=== PATIENT | female | born 1965 | race Caucasian/White ===

== ENCOUNTER → 2016-11-05 | Outpatient (CLI) | payer OTHER ==
[~2016-11-05] MED LIST: ALL180 PO; B-CO-25 PO; BUPR75TA20 PO; BUPR75TA3 PO; DIVA500T3 PO; DOCU240C12 PO; FLUT0.15 NAE; KETO2CRE14 TOP; KETO2SHA5 TOP; LRS10 PO; LRS20 PO; METR0.754 TOP; MOML PO; OMEP40CA PO; OMEP40CA41 PO; PARO1TAB29 PO; POLY335019 PO; QUET1TAB9 PO; VTMD1000 PO
--- NOTE | 2016-11-05 15:14 | MAMMOGRAPHY REPORT ---
ULTRASOUND OF BOTH BREASTS: 11/05/2016 CLINICAL HISTORY: Screening breast ultrasound. Patient is unable to tolerate and adequately positio n for mammography. COMPARISON: Comparison is made to exams dated: 10/25/2015 ultrasound - [facility], 05/16/2009, 06/06/2010 mammogram, 07/05/2011 mammogram, 07/16/2012 mammogram, and 07/20/2013 mammogram - [facility]. TECHNIQUE: Real-time high-resolution ultrasound was performed of each breast including the axillae. The examination is suboptimal as the patient is unable to adequately position with arms extended ab ove her head to assess the axillary regions. She is wheelchair-bound and has contractures. FINDINGS: The breast parenchymal echotexture is homogeneousfatty. No suspicious lymphadenopathy w as identified within the right or left axilla. No suspicious solid or cystic mass is seen throughou t the right or left breast including the retroareolar breasts. IMPRESSION: ACR BI-RADS CATEGORY 2: BENIGN There is no sonographic evidence of malignancy. A 1 year screening exam is recommended. The patien t has been verbally notified of the results. Madina Franco M.D. ay/:11/05/2016 14:05:17 Access Manager: Dr. Madina Franco, [facility] letter sent: Normal 1/2 BI-RADS Code: ACR BI-RADS Category 2: Benign
== END | disposition home or self-care (01) ==
LOC: C.MAMM 13:28
PROVIDERS: ATTEND Family Medicine
DX: Z12.31 Encounter for screening mammogram for malignant neoplasm of breast (principal)

== ENCOUNTER 2016-12-18 10:01 | Emergency (ER) | payer OTHER ==
[~2016-12-18 10:01] MED LIST changes: -BUPR75TA20 PO; -KETO2SHA5 TOP; -OMEP40CA41 PO
[2016-12-18 10:17] VITALS: TEMP 37.6; Ht 165.1 cm
--- NOTE | 2016-12-18 10:48 | EMERGENCY ROOM VISIT NOTE ---
History Report prepared by Jarrod: Sushila Ron Under the Supervision of: Dr. Karthik Lozano M.D. First contact with patient: 10:35 Chief Complaint: CONSTIPATION Stated Complaint: CONSTIPATED Nursing Triage Summary: pt is constipated with butt hole open per caregiver. sx for 3 days. pt has been gagging no vomiting pt was taking miralax but pcp changed it and now is constipated History of Present Illness The patient is a 51 year old female who presents to the Emergency Room via caregiver to be evaluated for persistent constipation that began 3 days ago. The patient's caregiver has also noticed that her anus appears to be dilated. She was given a suppository without relief. The patient typically has a bowel movement daily. Her caregiver states that she was brought to the ED for constipation last year and was given 2 enemas. History is limited secondary to patient's MR. Source of History: caregiver History Limited By: other (MR) Onset: 3 days WEEKDAY BABYSIT[employer] Position: other (GI) Quality: other (constipation) Timing: other (persistent) Review of Systems All systems have been listed, reviewed, and are negative other than those previously mentioned. Please see Additional Medical History Sheet. Past Medical & Surgical Medical Problems: (1) Cerebral palsy (2) Dysphasia (3) Mental retardation Family History Unobtainable due to patient's condition Social History Smoking Status: Never Smoker Alcohol Use: none Drug Use: none Marital Status: single Housing Status: assisted living Occupation Status: disabled Current/Historical Medications Scheduled B-Complex W/ Folic Acid (Super B Complex Maxi), 1 TAB PO DAILY Baclofen (Baclofen), 5 MG PO TID Baclofen (Baclofen), 20 MG PO TID Bupropion (Wellbutrin), 75 MG PO DAILY Cholecalciferol (Vitamin D3), 5,000 INTERUNIT PO DAILY Divalproex Sodium (Depakote Er), 1,000 MG PO HS Docusate Calcium (Docusate Calcium), 240 MG PO BID Fexofenadine HCl (Fexofenadine HCl), 180 MG PO DAILY Fluticasone Propionate (Nasal) (Flonase Allergy Relief), 2 SPRAYS NURYS DAILY Ketoconazole (Topical) (Nizoral), 1 APPLN TOP DAILY Metronidazole (Topical) (Metrocream), 1 APPLN TOP BID Omeprazole (Prilosec), 40 MG PO DAILY Paroxetine (Paxil), 40 MG PO DAILY Polyethylene Glycol 3350 (Miralax), 17 GM PO DAILY Quetiapine Fumarate (Seroquel), 100 MG PO TID Scheduled PRN Magnesium Hydroxide (Milk Of Magnesia), 30 ML PO for Constipation Allergies Coded Allergies: Amoxicillin (Verified Allergy, Unknown, UNKNOWN, 12/18/16) Clavulanic Acid (Verified Allergy, Unknown, UNKNOWN, 12/18/16) Physical Exam Vital Signs Date Time Temp Pulse Resp B/P Pulse Ox O2 Delivery O2 Flow Rate FiO2 12/18/16 13:36 111 18 97 12/18/16 12:36 120 20 145/94 93 Room Air 12/18/16 10:17 37.6 123 22 145/89 94 Room Air Physical Exam GENERAL: Minimal history obtained from the patient due to her chronic MR. Patient awake, alert. Patient follows some commands. Patient does not appear toxic. Patient is adequately hydrated and well-nourished. SKIN: No erythema, pallor, cyanosis or rash HEENT: Normal head, pupils equal, reactive to light and accommodation. LUNGS: Clear to auscultation. No wheezes, no rales, no rhonchi. HEART: No murmurs. No gallops. No rubs ABDOMEN: Soft, nontender. No masses, no rebound, no hepatomegaly or splenomegaly. RECTAL: Large amount of fecal impaction, brown rachel-like stool. EXTREMITIES: No signs of trauma. Patient has chronic contractions of her upper and lower extremities. NEUROLOGIC: No gross motor sensory function deficits. Medical Decision & Procedures Laboratory Results 12/18/16 11:15 12/18/16 11:15 Test 12/18/16 11:15 Red Blood Count 4.36 M/uL (4.2-5.4) Mean Corpuscular Volume 92.0 fL (80-100) Mean Corpuscular Hemoglobin 31.9 pg (25-34) Mean Corpuscular Hemoglobin Concent 34.7 g/dl (32-36) RDW Standard Deviation 46.8 fL (36.4-46.3) RDW Coefficient of Variation 13.9 % (11.5-14.5) Mean Platelet Volume 10.6 fL (7.4-10.4) Anion Gap 5.0 mmol/L (3-11) Estimated GFR () 138.8 Estimated GFR (Non- 119.8 BUN/Creatinine Ratio 31.8 (10-20) Calcium Level 9.0 mg/dl (8.5-10.1) Laboratory results as stated above per my review. ED Course 1038: Past medical records reviewed. The patient was evaluated in room C8. A complete history and physical examination was performed. 1310: Upon reevaluation, the patient appeared to have improvement of her symptoms. Nursing staff reports that the patient had a large bowel movement. I discussed today's findings with the patient's caregiver. She verbalized agreement of the treatment plan. The patient was discharged home. Medical Decision Differential includes but is not limited to fecal impaction, constipation, obstipation, metabolic disorder. Multiple labs were evaluated. The patient does not have any significant metabolic disorder. Fecal impaction could not be disimpacted manually. Patient had at least 2 enemas which did help to resolve the problem. The patient had a large amount of stool. I discussed care with 2 caregivers. Impression Primary Impression: Fecal impaction in rectum Additional Impression: Constipation Departure Information Dispostion Home / Self-Care Referrals Leighann PalumboDBushraOBushra (PCP) Patient Instructions My [facility] [place] [employer] Additional Instructions Continue all current medications as prescribed. Follow-up with Dr. Palumbo Problem Qualifiers
[2016-12-18] MEDS ORDERED: KETO2SHA5 TOP (10:59)
[2016-12-18] MEDS ORDERED: OMEP40CA41 PO (10:59)
[2016-12-18] MEDS ORDERED: BUPR75TA20 PO (11:00)
[2016-12-18 11:23] LABS: HEMATOCRIT 40.1 % (37-47); MEAN CORPUSCULAR HEMOGLOBIN 31.9 pg (25-34); MEAN CORPUSCULAR HGB CONC 34.7 g/dl (32-36); MEAN PLATELET VOLUME 10.6 fL (7.4-10.4); PLATELET COUNT 218 K/uL (130-400); RED BLOOD COUNT 4.36 M/uL (4.2-5.4); WHITE BLOOD COUNT 10.05 K/uL (4.8-10.8)
[2016-12-18 11:39] LABS: BLOOD UREA NITROGEN 13 mg/dl (7-18); BUN/CREATININE RATIO 31.8 (10-20); CARBON DIOXIDE 31 mmol/L (21-32); CHLORIDE 108 mmol/L (98-107); GLUCOSE 120 mg/dl (70-99); SODIUM 144 mmol/L (136-145)
[2016-12-18 12:36] VITALS: BP 145/94
[2016-12-18 13:36] VITALS: PULSE 111; O2SAT 97
== END 2016-12-18 13:42 | disposition home or self-care (01) ==
LOC: C.EDB 10:02 → C.EDC 13:42
DX: K56.41 Fecal impaction (principal); G80.9 Cerebral palsy, unspecified; R47.02 Dysphasia; F79 Unspecified intellectual disabilities

== ENCOUNTER → 2017-04-18 | Outpatient (CLI) | payer OTHER ==
[~2017-04-18] MED LIST changes: +BUPR75TA20 PO; -BUPR75TA3 PO; -KETO2CRE14 TOP; +KETO2SHA5 TOP; -OMEP40CA PO; +OMEP40CA41 PO
--- NOTE | 2017-04-18 16:05 | DIAGNOSTIC IMAGING REPORT ---
LEFT VENOUS DOPP LOWER EXT UNILAT CLINICAL HISTORY: 52 years-old Female presenting with LT LEG PAIN,R/O DVT *STAT. TECHNIQUE: Real-time grayscale and color and spectral Doppler ultrasound imaging of the veins of the left lower extremity was performed. Compression and augmentation were also utilized. COMPARISON: None. FINDINGS: Left: Common femoral vein: Patent. Femoral vein: Patent. Greater saphenous vein: Patent. Popliteal vein: Patent. Calf veins: Limited visualization. Other: None. IMPRESSION: No evidence of deep venous thrombosis. Electronically signed by: Rick Andrade M.D. 04/18/2017 4:03 PM Dictated Date/Time: 04/18/2017 4:03 PM
== END | disposition home or self-care (01) ==
LOC: C.ULTR 15:26
PROVIDERS: ATTEND Family Medicine
DX: M79.605 Pain in left leg (principal)

== ENCOUNTER → 2017-05-10 | Outpatient (CLI) | payer OTHER ==
--- NOTE | 2017-05-10 13:03 | DIAGNOSTIC IMAGING REPORT ---
VIDEO SWALLOW HISTORY: Assess for aspiration. Cough, pt WILL NEED LITTER/HELP FROM WHEELCHAIR TECHNIQUE: Video fluoroscopic evaluation of swallowing was performed in the AP and lateral projections by the speech pathology staff. The patient is fed nectar-thick and thin liquid barium. FLUOROSCOPY TIME: 0.8 minutes. A cine loop submitted. COMPARISON STUDY: None. FINDINGS: No aspiration with the thin liquid barium. There is trace aspiration with the nectar thick liquid barium. This appears to be secondary to premature spillover with slight delay of swallowing initiation. IMPRESSION: 1. Trace aspiration with the nectar thick liquid barium. 2. Please see the speech pathologist report for detailed findings and recommendations. Electronically signed by: Juan Galaviz M.D. 05/10/2017 1:01 PM Dictated Date/Time: 05/10/2017 12:59 PM
--- NOTE | 2017-05-13 09:55 | SWALLOWING EVALUATION ---
HISTORY: This 52 year old woman was referred for a video swallow study at [facility] in order to rule out aspiration and identify the safest consistencies for optimal oral intake. PMH is significant for Intellectual Disability, dehydration, and pneumonia. Caregiver was present and reported that patient has episodes of coughing/choking with meals. Current diet is pureed, and at times thickener is used for liquids. The patient is only able to drink with use of a straw. PROCEDURE: The patient was seen in the Radiology Department of [facility] for the VFSS. Cursory examination of the oral cavity revealed natural dentition in fair condition. Movement of the articulators was impaired as evidenced by dysarthric speech. The patient was seated upright in a wheelchair and was viewed in the Lateral plane. The Anterior-Posterior (A-P) plane was deferred due to positioning constraints of the patient's personal wheelchair and patient motion. The patient required assistance with maintaining adequate positioning for the study and spontaneous motion impacted full view at times. In the lateral plane, the patient was given the following boluses: Single swallow of thin liquid barium clinician-presented via straw, sequential swallows of thin liquid barium clinician-presented from a straw over 2 separate trials, single swallow of nectar thick liquid clinician presented via straw, sequential swallows of nectar thick liquid clinician-presented via straw, and 1 teaspoon barium pudding. RESULTS: Oral Stage: Lip closure was reduced as evidenced by anterior loss that progressed past the mid chin. The liquid bolus hold task was deferred. There was minimal manipulation of the pudding bolus. The patient essentially initiated bolus transport without any manipulation, with lingual transport being slowed. There was retention located along the tongue and palate after the initial swallow. The initiation of the pharyngeal swallow was delayed, and triggered when the bolus head reached the pyriforms. The patient presented with some difficulty with controlling the amount of liquid taken from the straw, and larger boluses taken presented with decreased ability to orally contain them resulting in premature loss. More solid boluses (i.e. cracker) were not provided due to safety concerns with oral stage management. Pharyngeal Stage: Soft palate elevation was complete. Laryngeal elevation revealed partial superior movement of the thyroid cartilage and partial approximation of the arytenoids to the epiglottic base. Anterior hyoid excursion was complete. Epiglottic deflection was complete. Laryngeal vestibular closure was incomplete as a narrow column of contrast was located in the vestibule at the height of the swallow. The pharyngeal stripping wave was present yet diminished. There was complete distention with complete duration of the opening to the pharyngoesophageal segment (PES). Tongue base retraction was minimally reduced, with a trace column of contrast located between the tongue base and pharyngeal wall during the swallow. There was trace retention located in the valleculae after the swallow. There was one episode of laryngeal penetration with aspiration (trace amounts) with nectar thick liquid. This occurred during serial swallows, when larger amounts were taken. Aspiration is attributed to delayed swallowing reflex, as the bolus spilled to and filled the pyriforms prior to eliciting a swallow. After ~ 2-3 seconds she did swallow, and the liquid that was present in the valleculae was aspirated during hyolaryngeal rise. She did have a sensory response in the form of a cough which appeared to be effective to clear this. No other aspiration was identified. SUMMARY/RECOMMENDATIONS: This patient presents with moderate rogelio-pharyngeal dysphagia. The following is recommended: 1. Pureed diet and thin liquids. 2. STRICT aspiration precautions. Fully upright while eating and 30 minutes after meals. Frequent oral care as the patient is able to tolerate (brushing all surfaces of the mouth prior to and after meals, and before bed). 3. Safe swallow strategies: SMALL SINGLE sips of liquids via controlled sips with a straw. Consider use of a "safe straw" that will assist in controlling sip size. 4. Consider continued speech therapy for further education and follow through of diet and safe swallow strategies. A summary of the results and recommendations was discussed with the Caregiver of the patient as well as the patient, with verbal understanding from the caregiver. A brief written summary of the results and recommendations were provided to the caregiver on document provided immediately following the study as well. Thank you for referral of this patient. Please contact me at if any additional information is needed.
== END | disposition home or self-care (01) ==
LOC: C.RAD 11:30
PROVIDERS: ATTEND Student in an Organized Health Care Education/Training Program
DX: R13.12 Dysphagia, oropharyngeal phase (principal); R63.3 Feeding difficulties; R05 Cough; R09.89 Other specified symptoms and signs involving the circulatory and respiratory systems

== ENCOUNTER → 2017-05-14 | Outpatient (CLI) | payer OTHER ==
--- NOTE | 2017-05-14 12:35 | DIAGNOSTIC IMAGING REPORT ---
LEFT HIP UNILATERAL 2 VIEWS, LEFT FEMUR 2 VIEWS ROUTINE, LEFT TIBIA/FIBULA 2 VIEWS ROUTINE CLINICAL HISTORY: Left lower externally pain. Left leg pain. COMPARISON STUDY: Left femur 05/22/2016. FINDINGS: The bones are diffusely osteopenic. There is diffuse muscular atrophy of the left lower extremity/hip. 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 Dysmorphic appearance to the left hip and left knee is also chronic. There is deformity/dislocation of the left foot which is also likely chronic. Metallic shantel are seen within the hindfoot. No acute fractures identified. IMPRESSION: 1. No acute fractures within the left hip, left femur, or left lower leg. 2. Chronic deformities within the left lower extremity as described above. 3. 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 Electronically signed by: Juan Galaviz M.D. 05/14/2017 12:33 PM Dictated Date/Time: 05/14/2017 12:28 PM
== END | disposition home or self-care (01) ==
LOC: C.RAD1850 11:27
PROVIDERS: ATTEND Family Medicine
DX: M79.605 Pain in left leg (principal)

== ENCOUNTER → 2017-06-04 | Outpatient (CLI) | payer OTHER | END | disposition home or self-care (01) | LOC: C.RDSM 11:28 | PROVIDERS: ATTEND Physical Medicine & Rehabilitation Sports Medicine | DX: M79.605 Pain in left leg (principal) ==

== ENCOUNTER 2017-10-06 13:30 | Emergency (ER) | payer OTHER ==
[~2017-10-06] VITALS: Ht 127 cm; Wt 53.0 kg
[~2017-10-06 13:30] MED LIST changes: -DOCU240C12 PO; +DOCU240C13 PO
[2017-10-06 13:39] VITALS: TEMP 38.2
[2017-10-06] MEDS ORDERED: SODIUM CHLORIDE 0.9% 1000ML 1,000 ML IV ONE (13:52)
[2017-10-06] MEDS ORDERED: ACETAMINOPHEN SUSP 160 MG/5 ML UDC PO STA (13:55)
--- NOTE | 2017-10-06 14:01 | EMERGENCY ROOM VISIT NOTE ---
History Report prepared by Jarrod: Devang Noble Under the Supervision of: Dr. Maurice Overton D.O. First contact with patient: 13:46 Chief Complaint: FLU LIKE SX Stated Complaint: COUGH, FEVER, NOT EATING OR DRINKING History of Present Illness The patient is a 52 year old female who presents to the Emergency Room with complaints of worsening flu-like symptoms beginning two days ago. The patient's caregiver states the patient has not been eating or drinking for the past few days. She reports the patient gets irritated and cries when she tries to eat. The caregiver notes the patient developed a fever over 100 degrees. She states the patient has also been coughing and sounds congested. The caregiver reports the patient has not received Motrin or Tylenol. She notes the patient has been complaining of body aches and pain. The caregiver states the patient received her flu shot, but she has not received a pneumonia shot. She reports the patient 's house-made has been sick with an ear infection. The caregiver notes the patient has experienced diarrhea, but she has not developed rectal bleeding. She states the patient recently started taking an extra 250mg of Depakote. The caregiver reports she is most concerned about pneumonia. She denies nausea, vomiting, and a runny nose. Source of History: caregiver Onset: 2 days ago Position: other (global) Quality: other (flu-like sx) Timing: worsening Associated Symptoms: + fevers, + cough, + diarrhea, No nausea, No vomiting Note: Associated symptoms: decreased appetite and fluid intake, congestion, body aches and pain Denies: rectal bleeding, runny nose Review of Systems See HPI for pertinent positives & negatives. A total of 10 systems reviewed and were otherwise negative. Past Medical & Surgical Medical Problems: (1) Cerebral palsy (2) Dysphasia (3) Mental retardation Family History Unobtainable due to patient's condition Social History Smoking Status: Never Smoker Alcohol Use: none Drug Use: none Marital Status: single Housing Status: assisted living Occupation Status: disabled Current/Historical Medications Scheduled B-Complex W/ Folic Acid (Super B Complex Maxi), 1 TAB PO DAILY Baclofen (Baclofen), 5 MG PO TID Baclofen (Baclofen), 20 MG PO TID Bupropion (Wellbutrin), 75 MG PO DAILY Cholecalciferol (Vitamin D3), 5,000 INTERUNIT PO DAILY Divalproex Sodium (Depakote Er), 1,000 MG PO HS Divalproex Sodium (Depakote Extended-Release), 250 MG PO HS Docusate Calcium (Docusate Calcium), 240 MG PO BID Fexofenadine HCl (Fexofenadine HCl), 180 MG PO DAILY Fluticasone Propionate (Nasal) (Flonase Allergy Relief), 2 SPRAYS NURYS DAILY Ketoconazole (Topical) (Nizoral), 1 APPLN TOP DAILY Metronidazole (Topical) (Metrocream), 1 APPLN TOP BID Omeprazole (Prilosec), 40 MG PO DAILY Oseltamivir (Tamiflu), 75 MG PO BID Paroxetine (Paxil), 40 MG PO DAILY Polyethylene Glycol 3350 (Miralax), 17 GM PO DAILY Quetiapine Fumarate (Seroquel), 100 MG PO TID Scheduled PRN Magnesium Hydroxide (Milk Of Magnesia), 30 ML PO for Constipation Allergies Coded Allergies: Amoxicillin (Verified Allergy, Unknown, UNKNOWN, 10/06/17) Clavulanic Acid (Verified Allergy, Unknown, UNKNOWN, 10/06/17) Physical Exam Vital Signs Date Time Temp Pulse Resp B/P (MAP) Pulse Ox O2 Delivery O2 Flow Rate FiO2 10/06/17 15:49 118 18 105/85 97 Room Air 10/06/17 14:49 120 20 131/91 98 Room Air 10/06/17 14:49 98 Room Air 10/06/17 13:39 38.2 130 22 184/132 100 Room Air Physical Exam GENERAL: Patient is awake, alert, and appears to be interactive with the examiner and caregiver. EYES: The conjunctivae are clear. The pupils are round and reactive. EARS, NOSE, MOUTH AND THROAT: The nose is without any evidence of any deformity. Mucous membranes are moist tongue is midline. TMs are clear bilaterally. Posterior oropharynx is clear. Clear rhinorrhea noted bilaterally. NECK: The neck is nontender and supple. RESPIRATORY: Diminished breath sounds in the right lung field. Rales at the left base. No tachypnea or respiratory distress noted clinically. CARDIOVASCULAR: Regular rate and rhythm noted there no murmurs rubs or gallops normal S1 normal S2 GASTROINTESTINAL: The abdomen is soft. Bowel sounds are present in all quadrants. Abdomen is nontender MUSCULOSKELETAL/EXTREMITIES: There is no evidence of gross deformity full range of motion is noted in the hips and shoulders. Pedal edema bilaterally. SKIN: There is no obvious evidence of any rash. There are no petechiae, pallor or cyanosis noted. NEUROLOGIC: Patient is at baseline according to caregiver. Medical Decision & Procedures ER Provider Diagnostic Interpretation: X-ray results as stated below per interpretation by me and the radiologist. CHEST ONE VIEW PORTABLE HISTORY: 52 years-old Female Sepsis acute sepsis COMPARISON: Chest radiograph 07/23/2016 TECHNIQUE: Portable AP view of the chest FINDINGS: The patient is rotated to the right. Cardiac silhouette is upper limits of normal. There is no pneumothorax, pleural effusion or definite focal airspace consolidation. Hazy bibasilar opacities suggest atelectasis, unchanged. The bones of the chest appear grossly intact. Degenerative changes are seen within the spine and shoulders. IMPRESSION: No acute process. The above report was generated using voice recognition software. It may contain grammatical, syntax or spelling errors. Electronically signed by: Barrington Wick M.D. 10/06/2017 2:32 PM Dictated Date/Time: 10/06/2017 2:30 PM Laboratory Results 10/06/17 14:07 Red Blood Count 4.37, Mean Corpuscular Volume 95.0, Mean Corpuscular Hemoglobin 32.7, Mean Corpuscular Hemoglobin Concent 34.5, Mean Platelet Volume 11.7, Neutrophils (%) (Auto) 80.4, Lymphocytes (%) (Auto) 11.2, Monocytes (%) (Auto) 8.0, Eosinophils (%) (Auto) 0.0, Basophils (%) (Auto) 0.1, Neutrophils # (Auto) 10.02, Lymphocytes # (Auto) 1.39, Monocytes # (Auto) 1.00, Eosinophils # (Auto) 0.00, Basophils # (Auto) 0.01 10/06/17 14:07 Test 10/06/17 14:07 10/06/17 14:10 10/06/17 14:13 10/06/17 14:14 White Blood Count 12.46 K/uL (4.8-10.8) Red Blood Count 4.37 M/uL (4.2-5.4) Hemoglobin 14.3 g/dL (12.0-16.0) Hematocrit 41.5 % (37-47) Mean Corpuscular Volume 95.0 fL (80-100) Mean Corpuscular Hemoglobin 32.7 pg (25-34) Mean Corpuscular Hemoglobin Concent 34.5 g/dl (32-36) Platelet Count 217 K/uL (130-400) Mean Platelet Volume 11.7 fL (7.4-10.4) Neutrophils (%) (Auto) 80.4 % Lymphocytes (%) (Auto) 11.2 % Monocytes (%) (Auto) 8.0 % Eosinophils (%) (Auto) 0.0 % Basophils (%) (Auto) 0.1 % Neutrophils # (Auto) 10.02 K/uL (1.4-6.5) Lymphocytes # (Auto) 1.39 K/uL (1.2-3.4) Monocytes # (Auto) 1.00 K/uL (0.11-0.59) Eosinophils # (Auto) 0.00 K/uL (0-0.5) Basophils # (Auto) 0.01 K/uL (0-0.2) RDW Standard Deviation 48.1 fL (36.4-46.3) RDW Coefficient of Variation 13.9 % (11.5-14.5) Immature Granulocyte % (Auto) 0.3 % Immature Granulocyte # (Auto) 0.04 K/uL (0.00-0.02) Prothrombin Time 10.5 SECONDS (9.0-12.0) Prothromb Time International Ratio 1.0 (0.9-1.1) Activated Partial Thromboplast Time 29.6 SECONDS (21.0-31.0) Partial Thromboplastin Ratio 1.1 Anion Gap 11.0 mmol/L (3-11) Est Creatinine Clear Calc Drug Dose 91.4 ml/min Estimated GFR () 139.0 Estimated GFR (Non- 119.9 BUN/Creatinine Ratio 22.2 (10-20) Calcium Level 9.4 mg/dl (8.5-10.1) Magnesium Level 2.0 mg/dl (1.8-2.4) Total Bilirubin 0.2 mg/dl (0.2-1) Aspartate Amino Transf (AST/SGOT) 31 U/L (15-37) Alanine Aminotransferase (ALT/SGPT) 32 U/L (12-78) Alkaline Phosphatase 81 U/L (45-117) C-Reactive Protein 8.70 mg/dl (0-0.29) Total Protein 7.9 gm/dl (6.4-8.2) Albumin 3.4 gm/dl (3.4-5.0) Globulin 4.5 gm/dl (2.5-4.0) Albumin/Globulin Ratio 0.8 (0.9-2) Valproic Acid (Depakene) Level 86 mcg/ml (50-100) Influenza Type A Antigen POS for Influ A (NEG) Influenza Type B Antigen Neg for Influ B (NEG) Erythrocyte Sedimentation Rate 22 mm/hr (0-21) Bedside Lactic Acid Venous 2.27 mmol/L (0.90-1.70) Laboratory results per my review. Medications Administered Medications (Trade) Dose Ordered Sig/Patrick Route Start Time Stop Time Status Last Admin Dose Admin Sodium Chloride 1,000 ml @ 999 mls/hr Q1H1M ONCE IV 10/06/17 13:52 10/06/17 14:52 DC 10/06/17 14:46 999 MLS/HR Acetaminophen (Tylenol Children'S Susp) 500 mg NOW STAT PO 10/06/17 13:55 10/06/17 13:56 DC 10/06/17 14:45 500 MG Oseltamivir Phosphate (Tamiflu Cap) 75 mg NOW STAT PO 10/06/17 15:02 10/06/17 15:03 DC 10/06/17 15:50 75 MG ED Course 1348: The patient was evaluated in room B07. A complete history and physical examination were performed. 1352: Ordered NSS 1,000 ml @ 999 mls/hr IV 1355: Ordered Acetaminophen 500 mg PO 1502: Ordered Tamiflu Cap 75mg PO 1519: I reevaluated the patient and discussed current exam findings with her caregiver. 1541: Upon reevaluation, the patient is resting comfortably. I discussed the results and treatment plan with the caregiver. She verbalized agreement of the treatment plan. The patient was discharged home. Medical Decision Differential diagnosis: Etiologies such as viral syndrome, otitis, pharyngitis, pneumonia, influenza, meningitis, urinary tract infection, sepsis, bacteremia, as well as others were entertained. Nursing notes reviewed. The patient is a 52-year-old female who presented to the emergency department for an acute febrile illness. The patient has been spitting cough as well as congestion. The patient has significant past medical history including cerebral palsy. The patient was treated with IV fluids in the emergency department. She was also treated for her fever as well as started on Tamiflu. I discussed the patient's laboratory and radiographic studies to her as well as her caregiver. She would appear to be a good candidate for Tamiflu at this time. She was feeling much better on subsequent reevaluation. Her vital signs improved. I encouraged him to continue all medications as prescribed and follow-up with primary care physician this week for reevaluation. Otherwise encouraged to return to the emergency department immediately if symptoms change worsen or the need arises. Medication Reconcilliation Current Medication List: was personally reviewed by me Blood Pressure Screening Patient's blood pressure: Normal blood pressure Blood pressure disposition: Did not require urgent referral Impression Primary Impression: Fever Additional Impression: Influenza Scribe Attestation The scribe's documentation has been prepared under my direction and personally reviewed by me in its entirety. I confirm that the note above accurately reflects all work, treatment, procedures, and medical decision making performed by me. Departure Information Dispostion Home / Self-Care Prescriptions Oseltamivir (Tamiflu) 75 Mg Cap 75 MG PO BID, #10 CAP Prov: Maurice Overton, DO 10/06/17 Referrals Leighann Palumbo D.O. (PCP) Forms HOME CARE DOCUMENTATION FORM, IMPORTANT VISIT INFORMATION Patient Instructions ED Fever Control, ED Flu, My [facility] Additional Instructions Continue to have the patient plenty of liquids such as Pedialyte or Gatorade. Continue to use Motrin and Tylenol directed for fever. Continue all other medications as prescribed. Follow-up with the family doctor this week for reevaluation. Problem Qualifiers Primary Impression: Fever Fever type: unspecified Qualified Codes: R50.9 - Fever, unspecified
[2017-10-06 14:05] VITALS: Ht 127 cm; Wt 53.0 kg
--- NOTE | 2017-10-06 14:33 | DIAGNOSTIC IMAGING REPORT ---
CHEST ONE VIEW PORTABLE HISTORY: 52 years-old Female Sepsis acute sepsis COMPARISON: Chest radiograph 07/23/2016 TECHNIQUE: Portable AP view of the chest FINDINGS: The patient is rotated to the right. Cardiac silhouette is upper limits of normal. There is no pneumothorax, pleural effusion or definite focal airspace consolidation. Hazy bibasilar opacities suggest atelectasis, unchanged. The bones of the chest appear grossly intact. Degenerative changes are seen within the spine and shoulders. IMPRESSION: No acute process. The above report was generated using voice recognition software. It may contain grammatical, syntax or spelling errors. Electronically signed by: Barrington Wick M.D. 10/06/2017 2:32 PM Dictated Date/Time: 10/06/2017 2:30 PM
[2017-10-06 14:38] LABS: BASO % 0.1 %; BASO ABS # 0.01 K/uL (0-0.2); HEMATOCRIT 41.5 % (37-47); HEMOGLOBIN 14.3 g/dL (12.0-16.0); IG# 0.04 K/uL (0.00-0.02); LYMPH % 11.2 %; LYMPH ABS # 1.39 K/uL (1.2-3.4); MEAN CORPUSCULAR HEMOGLOBIN 32.7 pg (25-34); MEAN CORPUSCULAR HGB CONC 34.5 g/dl (32-36); MEAN PLATELET VOLUME 11.7 fL (7.4-10.4); NEUT % 80.4 %; NEUT ABS # 10.02 K/uL (1.4-6.5); PLATELET COUNT 217 K/uL (130-400); RED CELL DISTRIBUTION WIDTH CV 13.9 % (11.5-14.5); RED CELL DISTRIBUTION WIDTH SD 48.1 fL (36.4-46.3); WHITE BLOOD COUNT 12.46 K/uL (4.8-10.8)
[2017-10-06 14:39] LABS: PTT PATIENT 29.6 SECONDS (21.0-31.0)
[2017-10-06 14:44] LABS: ALBUMIN 3.4 gm/dl (3.4-5.0); CALCIUM 9.4 mg/dl (8.5-10.1); CREATININE 0.39 mg/dl (0.60-1.20); POTASSIUM 3.8 mmol/L (3.5-5.1)
[2017-10-06 14:47] LABS: TOTAL PROTEIN 7.9 gm/dl (6.4-8.2)
[2017-10-06] MEDS ORDERED: DPKSR/250 PO (14:48)
[2017-10-06 14:49] VITALS: O2SAT 98
[2017-10-06 15:02] LABS: INFLUENZA B ANTIGEN Neg for Influ B (NEG)
[2017-10-06] MEDS ORDERED: OSELTAMIVIR PHOSPHATE 75 MG CAP PO STA (15:02)
[2017-10-06] MEDS ORDERED: OSEL75CA12 PO (15:38)
[2017-10-06 15:49] VITALS: BP 105/85; PULSE 118; O2SAT 97
== END 2017-10-06 16:07 | disposition home or self-care (01) ==
LOC: C.EDB 13:32
DX: R50.9 Fever, unspecified (principal); J11.1 Influenza due to unidentified influenza virus with other respiratory manifestations; G80.9 Cerebral palsy, unspecified; R47.02 Dysphasia; F79 Unspecified intellectual disabilities; Z79.899 Other long term (current) drug therapy

== ENCOUNTER → 2017-11-08 | Outpatient (CLI) | payer OTHER ==
[~2017-11-08] MED LIST changes: +DPKSR/250 PO; +OSEL75CA12 PO
--- NOTE | 2017-11-08 14:42 | MAMMOGRAPHY REPORT ---
ULTRASOUND OF BOTH BREASTS: 11/08/2017 CLINICAL HISTORY: 52-year-old wheelchair-bound patient with contractures unable to position for scree raiza mammography presents for screening ultrasound. COMPARISON: Comparison is made to exams dated: 11/05/2016 ultrasound, 10/25/2015 ultrasound, 07/22/2014 mammogram, 07/20/2013 mammogram, 07/16/2012 mammogram, and 07/05/2011 mammogram - [facility]. TECHNIQUE: Real-time high-resolution ultrasound was performed throughout each breast including the re troareolar breast. Evaluation of the right and left axilla was unable to be performed due to the pat ient's contractures and position with in her wheelchair. FINDINGS: The breast parenchymal echotexture is homogeneousfatty. No suspicious solid or cystic mas s is seen within either breast, including the retroareolar aspect of the breasts. IMPRESSION: ACR BI-RADS CATEGORY 2: BENIGN 1. Suboptimal ultrasound given inability of the patient to adequately position for the ultrasound an d therefore the axillary regions were unable to be assessed. It was also difficult to fully evaluate the lateral aspect of each breast given constriction from the patient's wheelchair. Within the limi tations of the exam, there is no sonographic evidence of malignancy in the breasts. Madina Franco M.D. ay/:11/08/2017 14:11:31 Attending Technologist: Ambreen YATES)(M), [facility] Endorsement Clerk: Dr. Madina Franco, [facility] letter sent: Normal 1/2 BI-RADS Code: ACR BI-RADS Category 2: Benign
== END | disposition home or self-care (01) ==
LOC: C.MAMM 13:17
PROVIDERS: ATTEND Family Medicine
DX: R92.8 Other abnormal and inconclusive findings on diagnostic imaging of breast (principal)

== ENCOUNTER 2017-12-25 22:58 | Inpatient (IN) | payer OTHER ==
[~2017-12-25] VITALS: Ht 160 cm; Wt 48.6 kg
[2017-12-25] MEDS ORDERED: SODIUM CHLORIDE 0.9% 1000ML 1,000 ML IV STA (23:30)
[2017-12-25] MEDS ORDERED: ONDANSETRON INJ 2 MG/ML 2 ML VIAL IV STA (23:30)
[2017-12-25] MEDS ORDERED: ACETAMINOPHEN 325 MG SUPP PR STA (23:36)
[2017-12-25] MEDS ORDERED: LORAZEPAM 2 MG/ML 1 ML VIAL IV STA (23:36)
--- NOTE | 2017-12-25 23:41 | EMERGENCY ROOM VISIT NOTE ---
History Report prepared by Jarrod: Aries Davis Under the Supervision of: Dr. Mumtaz Bob M.D. First contact with patient: 23:25 Chief Complaint: FEVER Stated Complaint: VOMITING, DIARRHEA, FEVER 104 History of Present Illness The patient is a 52 year old female who presents to the Emergency Room with complaints of persistent general vomiting since 1729 today. The patient has a severe intellectual disability. Per caregiver, the patient began vomiting and has had eight episodes of vomiting since that time. She also reports the patient has diarrhea that is loose and green in nature. The caregiver recorded the patients fever at 104 via her forehead. The caregiver reports the patient was fine this afternoon. Per caregiver, the patient denies any recent antibiotic use or history of abdominal surgeries. The patient was given stomach relief medication, though she was not given her evening medications per doctors orders. Per caregiver, the patient seemed to be in pain and had shortness of breath. The patient has a significant history of UTIs. Per caregiver, the patient denies any falls or syncope. Per caregiver, the patient has a history of rashes to her face, though denies any new rashes. HPI is limited secondary to patient non-verbal. Source of History: caregiver History Limited By: other (non-verbal) Onset: 1729 today Position: other (general) Quality: other (vomiting) Timing: other (persistent) Associated Symptoms: + fevers, + SOB, + diarrhea Note: Notes pain. Denies any falls or syncope. Review of Systems ROS is limited secondary to patient non-verbal. Past Medical & Surgical Medical Problems: (1) Abdominal pain (2) Calculus, kidney (3) Cerebral palsy (4) Cerebral palsy (5) Colitis (6) Constipation (7) Dehydration (8) Dysphasia (9) Fever (10) Influenza (11) Intractable vomiting (12) Mental retardation (13) Pneumonia (14) Refuses to eat Family History Unobtainable due to patient's condition Social History Smoking Status: Never Smoker Alcohol Use: none Drug Use: none Marital Status: single Housing Status: assisted living Occupation Status: disabled Current/Historical Medications Scheduled B-Complex W/ Folic Acid (Super B Complex Maxi), 1 TAB PO DAILY Baclofen (Baclofen), 5 MG PO TID Baclofen (Baclofen), 20 MG PO TID Carbamide Peroxide (Otic) (Debrox), 5-10 DROPS OT WK Cholecalciferol (Vitamin D3), 5,000 INTERUNIT PO DAILY Divalproex Sodium (Depakote Er), 1,000 MG PO HS Divalproex Sodium (Depakote Extended-Release), 250 MG PO HS Docusate Calcium (Docusate Calcium), 240 MG PO BID Fexofenadine HCl (Fexofenadine HCl), 180 MG PO DAILY Fluticasone Propionate (Nasal) (Flonase Allergy Relief), 2 SPRAYS NURYS DAILY Hydroxyzine Pamoate (Vistaril), 1 CAP PO TID Ketoconazole (Topical) (Nizoral), 1 APPLN TOP DAILY Metronidazole (Topical) (Metrocream), 1 APPLN TOP BID Omeprazole (Prilosec), 40 MG PO BID Paroxetine (Paxil), 40 MG PO QAM Paroxetine (Paxil), 20 MG PO QAM Polyethylene Glycol 3350 (Miralax), 17 GM PO DAILY Quetiapine Fumarate (Seroquel), 100 MG PO TID Scheduled PRN Magnesium Hydroxide (Milk Of Magnesia), 30 ML PO for Constipation Allergies Coded Allergies: Amoxicillin (Verified Allergy, Unknown, UNKNOWN, 12/26/17) Clavulanic Acid (Verified Allergy, Unknown, UNKNOWN, 12/26/17) Physical Exam Vital Signs Date Time Temp Pulse Resp B/P (MAP) Pulse Ox O2 Delivery O2 Flow Rate FiO2 12/25/17 23:48 123 12/25/17 23:20 37.7 12/25/17 23:14 137 20 139/86 95 Room Air Physical Exam GENERAL: Patient is ill-appearing and in moderate acute distress. Periodic vomiting/coughing. Severe intellectual disability with extensive contractures throughout. EYES: No scleral icterus, unremarkable pupils. ENT: Mucous membranes moist, no nasal congestion. NECK: No masses appreciated, no meningismus, trachea is midline. RESPIRATORY: Period coughing with crackles and wheeze throughout right lung. CARDIOVASCULAR: Tachycardic rate and regular rhythm. No murmurs, rubs, gallops appreciated. GASTROINTESTINAL: Abdomen soft, nontender, no peritonitis. Bowel sounds positive. No masses appreciated. BACK: No midline tenderness, no CVA tenderness EXTREMITIES: Moves arms, not legs. no cyanosis, no edema. NEUROLOGIC: Looking around room. SKIN: No rash, no jaundice, no diaphoresis. Medical Decision & Procedures ER Provider Diagnostic Interpretation: Radiology results and stated below per my review and interpretation: CHEST XR: One view: Rotated portable. No obvious infiltrate. No effusion appreciated. No evidence of free air under diaphragm. Normal cardiac order. Laboratory Results 12/25/17 23:50 Red Blood Count 4.79, Mean Corpuscular Volume 93.3, Mean Corpuscular Hemoglobin 32.8, Mean Corpuscular Hemoglobin Concent 35.1, Mean Platelet Volume 11.0, Neutrophils (%) (Auto) 90.5, Lymphocytes (%) (Auto) 6.1, Monocytes (%) (Auto) 2.8, Eosinophils (%) (Auto) 0.2, Basophils (%) (Auto) 0.1, Neutrophils # (Auto) 13.42, Lymphocytes # (Auto) 0.90, Monocytes # (Auto) 0.41, Eosinophils # (Auto) 0.03, Basophils # (Auto) 0.01 12/25/17 23:50 Test 12/25/17 23:40 12/25/17 23:50 Urine Color DK YELLOW Urine Appearance CLEAR (CLEAR) Urine pH 5.0 (4.5-7.5) Urine Specific [place] 1.028 (1.000-1.030) Urine Protein NEG (NEG) Urine Glucose (UA) NEG (NEG) Urine Ketones 1+ (NEG) Urine Occult Blood NEG (NEG) Urine Nitrite NEG (NEG) Urine Bilirubin NEG (NEG) Urine Urobilinogen NEG (NEG) Urine Leukocyte Esterase SMALL (NEG) Urine WBC (Auto) 10-30 /hpf (0-5) Urine RBC (Auto) 0-4 /hpf (0-4) Urine Hyaline Casts (Auto) 10-30 /lpf (0-5) Urine Epithelial Cells (Auto) >30 /lpf (0-5) Urine Bacteria (Auto) NEG (NEG) Urine Renal Epithelial Cells /lpf (0-5) Urine Mucus PRESENT (NONE PRSENT) White Blood Count 14.81 K/uL (4.8-10.8) Red Blood Count 4.79 M/uL (4.2-5.4) Hemoglobin 15.7 g/dL (12.0-16.0) Hematocrit 44.7 % (37-47) Mean Corpuscular Volume 93.3 fL (80-100) Mean Corpuscular Hemoglobin 32.8 pg (25-34) Mean Corpuscular Hemoglobin Concent 35.1 g/dl (32-36) Platelet Count 273 K/uL (130-400) Mean Platelet Volume 11.0 fL (7.4-10.4) Neutrophils (%) (Auto) 90.5 % Lymphocytes (%) (Auto) 6.1 % Monocytes (%) (Auto) 2.8 % Eosinophils (%) (Auto) 0.2 % Basophils (%) (Auto) 0.1 % Neutrophils # (Auto) 13.42 K/uL (1.4-6.5) Lymphocytes # (Auto) 0.90 K/uL (1.2-3.4) Monocytes # (Auto) 0.41 K/uL (0.11-0.59) Eosinophils # (Auto) 0.03 K/uL (0-0.5) Basophils # (Auto) 0.01 K/uL (0-0.2) RDW Standard Deviation 47.7 fL (36.4-46.3) RDW Coefficient of Variation 14.0 % (11.5-14.5) Immature Granulocyte % (Auto) 0.3 % Immature Granulocyte # (Auto) 0.04 K/uL (0.00-0.02) Prothrombin Time 10.6 SECONDS (9.0-12.0) Prothromb Time International Ratio 1.0 (0.9-1.1) Anion Gap 8.0 mmol/L (3-11) Est Creatinine Clear Calc Drug Dose 101.5 ml/min Estimated GFR () 125.6 Estimated GFR (Non- 108.4 BUN/Creatinine Ratio 28.3 (10-20) Calcium Level 9.0 mg/dl (8.5-10.1) Total Bilirubin 0.3 mg/dl (0.2-1) Direct Bilirubin < 0.1 mg/dl (0-0.2) Aspartate Amino Transf (AST/SGOT) 27 U/L (15-37) Alanine Aminotransferase (ALT/SGPT) 29 U/L (12-78) Alkaline Phosphatase 94 U/L (45-117) Troponin I < 0.015 ng/ml (0-0.045) Total Protein 7.6 gm/dl (6.4-8.2) Albumin 3.2 gm/dl (3.4-5.0) Laboratory results as reviewed by me. Medications Administered Medications (Trade) Dose Ordered Sig/Patrick Route Start Time Stop Time Status Last Admin Dose Admin Sodium Chloride 1,000 ml @ 999 mls/hr Q1H1M STAT IV 12/25/17 23:30 12/26/17 00:30 DC 12/26/17 00:05 999 MLS/HR Lorazepam (Ativan Inj) 1 mg NOW STAT IV 12/25/17 23:36 12/25/17 23:37 DC 12/26/17 00:05 1 MG Acetaminophen (Tylenol Supp) 975 mg NOW STAT MO 12/25/17 23:36 12/25/17 23:37 DC 12/26/17 00:05 975 MG Sodium Chloride 1,000 ml @ 999 mls/hr Q1H1M STAT IV 12/26/17 00:43 12/26/17 01:43 DC 12/26/17 01:02 999 MLS/HR Aztreonam 2000 mg/ Dextrose 110 ml @ 100 mls/hr NOW IV 12/26/17 00:45 12/26/17 01:44 DC 12/26/17 01:01 100 MLS/HR Vancomycin HCl (Vancomycin 1gm Ed/Asu Omnicell) 1 gm NOW STAT IV 12/26/17 00:43 12/26/17 00:45 DC 12/26/17 01:57 1 GM ECG Per My Interpretation Indication: vomiting Rate (beats per minute): 127 Rhythm: sinus tachycardia Findings: no acute ischemic change, no ectopy, other (QTC of 465.) ED Course 2326: The patient was evaluated in room A10. A complete history and physical exam was performed. 0020: I reassessed the patient at this time. She has had no recurrent vomiting since the Zofran. The patient's HR is in the 120s. 0102: I reassessed the patient at this time. She has a soft abdomen. Tachycardia is improving. 0115: I spoke with Dr. Vernon, [facility] hospitalist. We discussed the patient's case. The patient will be evaluated by the [facility] for further management. Medical Decision Differential: Viral, Pharyngitis, Cellulitis, Pneumonia, Influenza, Meningitis, Sepsis, Bacteremia, UTI/Pyelonephritis, Endocrine, Toxicologic, amongst other pathologies entertained. 52 yr old female arrives for evaluation of vomiting, diarrhea and fever. Fever is improved on arrival but she is still quite tachy. Right lung sounds quite poor consistent with aspiration. Suspect n/v/diarrhea is gastroenteritis but with fevers, tachy, right lung congestion and her hsitory bringing in for abx and treatment of sepsis reasonable. Lactic acid mildly elevated likely secondary to vomiting. Abdomen completely benign by examination. CXR actually looks OK right now but I suspect this is jus too early. No evidence UTI nor cellulitis. Given IV ativan given history of her prolonged QTC with complete resolution of her vomiting and she looks fair improved. Received 30ml/kg IV fluids along with empiric abx tx post blood cultures obtained. Medication Reconcilliation Current Medication List: was personally reviewed by me Blood Pressure Screening Patient's blood pressure: Elevated blood pressure Blood pressure disposition: Elevated BP felt to be situational Consults Time Called: 0105 Consulting Physician: [facility] Returned Call: [address] [facility]. We discussed the patient's case. The patient will be evaluated by the [facility] for further management. Impression Primary Impression: Sepsis Additional Impressions: Aspiration pneumonia Nausea, vomiting, and diarrhea Scribe Attestation The scribe's documentation has been prepared under my direction and personally reviewed by me in its entirety. I confirm that the note above accurately reflects all work, treatment, procedures, and medical decision making performed by me. Departure Information Dispostion Being Evaluated By Hospitalist Referrals Leighann Palumbo D.O. (PCP) Patient Instructions My [facility] Health Problem Qualifiers
[2017-12-26] VITALS (7 sets, daily range): BP systolic 120–155; BP diastolic 77–97; PULSE 103–130; TEMP 37.4–37.6; O2SAT 93–95; Ht 160 cm; Wt 48.6 kg
[2017-12-26 00:11] LABS: BASO % 0.1 %; BASO ABS # 0.01 K/uL (0-0.2); EOS % 0.2 %; EOS ABS # 0.03 K/uL (0-0.5); HEMATOCRIT 44.7 % (37-47); HEMOGLOBIN 15.7 g/dL (12.0-16.0); IG# 0.04 K/uL (0.00-0.02); LYMPH % 6.1 %; MEAN CELL VOLUME 93.3 fL (80-100); MEAN CORPUSCULAR HEMOGLOBIN 32.8 pg (25-34); MEAN CORPUSCULAR HGB CONC 35.1 g/dl (32-36); MONO % 2.8 %; MONO ABS # 0.41 K/uL (0.11-0.59); NEUT % 90.5 %; NEUT ABS # 13.42 K/uL (1.4-6.5); PLATELET COUNT 273 K/uL (130-400); RED CELL DISTRIBUTION WIDTH SD 47.7 fL (36.4-46.3); WHITE BLOOD COUNT 14.81 K/uL (4.8-10.8)
[2017-12-26 00:36] LABS: ALBUMIN 3.2 gm/dl (3.4-5.0); ALT/SGPT 29 U/L (12-78); AST/SGOT 27 U/L (15-37); BLOOD UREA NITROGEN 15 mg/dl (7-18); CARBON DIOXIDE 26 mmol/L (21-32); CREATININE 0.53 mg/dl (0.60-1.20); GLUCOSE 173 mg/dl (70-99); POTASSIUM 3.7 mmol/L (3.5-5.1); SODIUM 137 mmol/L (136-145)
[2017-12-26 00:40] LABS: ALKALINE PHOSPHATASE 94 U/L (45-117); TOTAL PROTEIN 7.6 gm/dl (6.4-8.2)
[2017-12-26] MEDS ORDERED: SODIUM CHLORIDE 0.9% 1000ML 1,000 ML IV STA (00:43)
[2017-12-26] MEDS ORDERED: VANCOMYCIN 1GM ED/ASU OMNICELL IV STA (00:43)
[2017-12-26] MEDS ORDERED: AZTREONAM IV 2,000 MG in DEXTROSE 5% 100ML 100 ML IV SCH (00:45)
[2017-12-26] MEDS ORDERED: PARO1TAB27 PO (01:03)
[2017-12-26] MEDS ORDERED: HYDR25CA PO (01:07)
[2017-12-26] MEDS ORDERED: CARB1SOL8 OT (01:08)
[2017-12-26] MEDS ORDERED: ONDANSETRON INJ 2 MG/ML 2 ML VIAL IV PRN (01:45)
[2017-12-26] MEDS ORDERED: ENOXAPARIN 40 MG/0.4 ML SYR SQ SCH ×2 (01:45→09:00)
[2017-12-26] MEDS ORDERED: ACETAMINOPHEN 325 MG TAB PO PRN (01:45)
[2017-12-26] MEDS ORDERED: ALUMINUM/MAGNESIUM/SIMETH (MAALOX MAX) 30 ML UDC PO PRN (01:45)
[2017-12-26] MEDS ORDERED: MAGNESIUM HYDROXIDE SUSP 30 ML UDC PO PRN (01:45)
[2017-12-26] MEDS ORDERED: ALBUTEROL 0.083% NEBU SOLN 3 ML VIAL INH PRN (01:45)
[2017-12-26] MEDS: ALBUT/IPRATROP 3MG/0.5MG NEB 3 ML VIAL INH SCH ×3 (03:13→14:18)
[2017-12-26] MEDS ORDERED: ALBUT/IPRATROP 3MG/0.5MG NEB 3 ML VIAL INH PRN (03:15)
[2017-12-26] MEDS ORDERED: NSS + 20MEQ KCL 1000ML 1,000 ML IV SCH (03:15)
--- NOTE | 2017-12-26 03:15 | History and Physical ---
History & Physical Date & Time of Service: Dec 26, 2017 at 02:18 Chief Complaint: Vomiting, Diarrhea, Fever 104 Primary Care Physician: Leighann Palumbo D.O. History of Present Illness Source: caregiver, hospital records 52 y/o F Hx cerebral palsy - spastic quadriparesis, MR, seizures, chronic aspiration. The pt resides in a assisted. 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 Earlier in the day she developed nausea, vomiting and diarrhea. Following this , she developed a cough, labored breathing and a high fever. It is reported that she has had episodes of aspiration pneumonia in the past. Initial labs are notable for leukocytosis. There are no clear infiltrates on CXR. Past Medical/Surgical History 1) Cerebral palsy 2) Spastic quadriparesis 3) Seizure disorder 4) Aspiration - previous episodes of aspiration pneumonia 5) MR 6) An EKG in 2014 exhibited a long QT which may have been due to antibiotics or antiemetics Family History Unobtainable due to patient's condition Social History Smoking Status: Never Smoker Drug Use: none Marital Status: single Occupational Status: disabled Allergies Coded Allergies: Amoxicillin (Verified Allergy, Unknown, UNKNOWN, 12/26/17) Clavulanic Acid (Verified Allergy, Unknown, UNKNOWN, 12/26/17) Home Medications Scheduled B-Complex W/ Folic Acid (Super B Complex Maxi), 1 TAB PO DAILY Baclofen (Baclofen), 5 MG PO TID Baclofen (Baclofen), 20 MG PO TID Carbamide Peroxide (Otic) (Debrox), 5-10 DROPS OT WK Cholecalciferol (Vitamin D3), 5,000 INTERUNIT PO DAILY Divalproex Sodium (Depakote Er), 1,000 MG PO HS Divalproex Sodium (Depakote Extended-Release), 250 MG PO HS Docusate Calcium (Docusate Calcium), 240 MG PO BID Fexofenadine HCl (Fexofenadine HCl), 180 MG PO DAILY Fluticasone Propionate (Nasal) (Flonase Allergy Relief), 2 SPRAYS NURYS DAILY Hydroxyzine Pamoate (Vistaril), 1 CAP PO TID Ketoconazole (Topical) (Nizoral), 1 APPLN TOP DAILY Metronidazole (Topical) (Metrocream), 1 APPLN TOP BID Omeprazole (Prilosec), 40 MG PO BID Paroxetine (Paxil), 40 MG PO QAM Paroxetine (Paxil), 20 MG PO QAM Polyethylene Glycol 3350 (Miralax), 17 GM PO DAILY Quetiapine Fumarate (Seroquel), 100 MG PO TID Scheduled PRN Magnesium Hydroxide (Milk Of Magnesia), 30 ML PO for Constipation Review of Systems Cannot obtain from pt - nausea, vomiting, diarrhea - SOB and cough as above Physical Exam Vital Signs Date Time Temp Pulse Resp B/P (MAP) Pulse Ox O2 Delivery O2 Flow Rate FiO2 12/25/17 23:48 123 12/25/17 23:20 37.7 12/25/17 23:14 137 20 139/86 95 Room Air General Appearance: + pertinent finding (The pt is in no distress and does not display labored breathing at the time of admission) Head: normocephalic Eyes: normal inspection ENT: normal ENT inspection, pharynx normal Neck: supple, no JVD Respiratory/Chest: chest non-tender, + pertinent finding (She cannot comly wuth lung exam which is limited by shallow breaths and moaning ) Cardiovascular: regular rate, rhythm, no edema, no gallop Abdomen/GI: normal bowel sounds, non tender, soft Back: normal inspection, no CVA tenderness Extremities/Musculoskelatal: + pertinent finding (Contractures present in extremities) Neurologic/Psych: + pertinent finding (She does not verbalize, can obey simple commands, spasticity of limbs is present) Skin: + pertinent finding (A malar rash is present which is chronic) Diagnostics Laboratory Results Results Past 24 Hours Test 12/25/17 23:40 12/25/17 23:50 Range/Units Urine Color DK YELLOW Urine Appearance CLEAR CLEAR Urine pH 5.0 4.5-7.5 Urine Specific [place] 1.028 1.000-1.030 Urine Protein NEG NEG Urine Glucose (UA) NEG NEG Urine Ketones 1+ NEG Urine Occult Blood NEG NEG Urine Nitrite NEG NEG Urine Bilirubin NEG NEG Urine Urobilinogen NEG NEG Urine Leukocyte Esterase SMALL NEG Urine WBC (Auto) 10-30 0-5 /hpf Urine RBC (Auto) 0-4 0-4 /hpf Urine Hyaline Casts (Auto) 10-30 0-5 /lpf Urine Epithelial Cells (Auto) >30 0-5 /lpf Urine Bacteria (Auto) NEG NEG Urine Renal Epithelial Cells 0-5 /lpf Urine Mucus PRESENT NONE PRSENT White Blood Count 14.81 4.8-10.8 K/uL Red Blood Count 4.79 4.2-5.4 M/uL Hemoglobin 15.7 12.0-16.0 g/dL Hematocrit 44.7 37-47 % Mean Corpuscular Volume 93.3 80-100 fL Mean Corpuscular Hemoglobin 32.8 25-34 pg Mean Corpuscular Hemoglobin Concent 35.1 32-36 g/dl Platelet Count 273 130-400 K/uL Mean Platelet Volume 11.0 7.4-10.4 fL Neutrophils (%) (Auto) 90.5 % Lymphocytes (%) (Auto) 6.1 % Monocytes (%) (Auto) 2.8 % Eosinophils (%) (Auto) 0.2 % Basophils (%) (Auto) 0.1 % Neutrophils # (Auto) 13.42 1.4-6.5 K/uL Lymphocytes # (Auto) 0.90 1.2-3.4 K/uL Monocytes # (Auto) 0.41 0.11-0.59 K/uL Eosinophils # (Auto) 0.03 0-0.5 K/uL Basophils # (Auto) 0.01 0-0.2 K/uL RDW Standard Deviation 47.7 36.4-46.3 fL RDW Coefficient of Variation 14.0 11.5-14.5 % Immature Granulocyte % (Auto) 0.3 % Immature Granulocyte # (Auto) 0.04 0.00-0.02 K/uL Sodium Level 137 136-145 mmol/L Potassium Level 3.7 3.5-5.1 mmol/L Chloride Level 103 98-107 mmol/L Carbon Dioxide Level 26 21-32 mmol/L Anion Gap 8.0 3-11 mmol/L Blood Urea Nitrogen 15 7-18 mg/dl Creatinine 0.53 0.60-1.20 mg/dl Est Creatinine Clear Calc Drug Dose 101.5 ml/min Estimated GFR () 125.6 Estimated GFR (Non- 108.4 BUN/Creatinine Ratio 28.3 10-20 Random Glucose 173 70-99 mg/dl Calcium Level 9.0 8.5-10.1 mg/dl Total Bilirubin 0.3 0.2-1 mg/dl Direct Bilirubin < 0.1 0-0.2 mg/dl Aspartate Amino Transf (AST/SGOT) 27 15-37 U/L Alanine Aminotransferase (ALT/SGPT) 29 12-78 U/L Alkaline Phosphatase 94 45-117 U/L Troponin I < 0.015 0-0.045 ng/ml Total Protein 7.6 6.4-8.2 gm/dl Albumin 3.2 3.4-5.0 gm/dl Microbiology Results 12/26/17 Blood Culture, Received Pending 12/25/17 Blood Culture, Received Pending 12/25/17 Urine Culture, Received Pending Diagnostic Radiology NO infiltrates on CT Normal EKG Impression Assessment and Plan 52 y/o F Hx cerebral palsy - spastic quadriparesis, MR, seizures, chronic aspiration. The pt resides in a assisted. 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 Earlier in the day she developed nausea, vomiting and diarrhea. Following this , she developed a cough, labored breathing and a high fever. It is reported that she has had episodes of aspiration pneumonia in the past. Initial labs are notable for leukocytosis. There are no clear infiltrates on CXR. 1) Fever - reported cough and SOB - suspect aspiration. Considering her history it would not be unreasonable to treat for aspiration PNM. She will be placed on Cefepime pending blood culture results. Nebs are provided PRN. She has not required 02. A rapid flu is pending on admission. She received both Vancomycin and Aztreonam in the ER which we have discontinued for the time being. The pt complies with a puree diet at home. Lactic acid is minimally elevated and will be rechecked following fluid resuscitation. 2) Spasticity - cont Baclofen 3) Seizure disorder - cont Depakote 4) N/V/D - appears to have resolved - minimal diarrhea persists. C diff study is pending. Full code - Lovenox prophylaxis Total time for this admit icluding review of labs, meds, imaging, records - discussion with pt's food assembler kitchen and ER attending - 38 min Resuscitation Status VTE Prophylaxis Will order VTE Prophylaxis: Yes
[2017-12-26] MEDS ORDERED: PROMETHAZINE HCL INJ 25 MG in SODIUM CHLORIDE 0.9% 50ML 50 ML IV STA (04:22)
[2017-12-26] MEDS: CEFEPIME IV 1,000 MG in SYRINGE 0 ML IV SCH ×2 (04:57→13:34)
[2017-12-26 05:20] LABS: INFLUENZA A PCR Neg for Influ A (NEG); INFLUENZA B PCR Neg for Influ B (NEG)
[2017-12-26 06:55] LABS: HEMOGLOBIN A1C 4.9 % (4.5-5.6)
--- NOTE | 2017-12-26 06:58 | Family Medicine Progress Note ---
Progress Note Date of Service Dec 26, 2017. Subjective Pt evaluation today including: conversation w/ patient, conversation w/ family Pt was seen and examined at bedside. Mom was in the room helping discern daughter's verbal responses. Daughter was distressed because she didn't want to be here. Per nurse and mom, n/v/d has resolved. Pt had one loose BM that was not diarrhea. Pt was found to have a low grade temp of 37.7 and 37.6 in the AM. ROS: Unreliable because of pt's baseline MR and CP. Constitutional: No fever, No chills, No sweats ENT: No hearing loss Respiratory: No wheezing Abdomen: No pain Objective Physical Exam General Appearance: WD/WN, + mild distress (pt is crying out) Eyes: normal inspection, PERRL ENT: + pertinent finding (dark dentition and halitosis) Respiratory/Chest: chest non-tender, lungs clear, normal breath sounds, no respiratory distress, no accessory muscle use Cardiovascular: regular rate, rhythm, no edema, no gallop, no JVD, no murmur Abdomen: normal bowel sounds, non tender, soft, no organomegaly, no pulsatile mass Extremities: normal range of motion, non-tender, normal inspection, no pedal edema, no calf tenderness Neurologic/Psychiatric: alert, + pertinent finding (pt is a spastic quadrapletic, unable to speak, she can phonate and I can make out 'yes' and 'no ' intermittently. ) Skin: normal color, warm/dry Assessment and Plan 52F Hx cerebral palsy - spastic quadriparesis, MR, seizures, chronic aspiration. The pt resides in a assisted. She was brought in for n/v/d + cough. She had a WBC count and elevated Lactate. No clear infiltrates on X- ray. N/V/D resolved on hospital Day #1. We have requested a speech swallow eval - she does receive outpatient services for known chronic aspiration and is on a pureed diet at home. She is on IV Cefepime. She had a low grade fever in the AM. Fever with cough and leukocytosis 2/2 aspiration vs viral illness. No O2 requirement, lungs CTA. Nebs PRN. Rapid Flu Negative. c/w IV Cefepime. (DC on PO cefdinir) Follow up Blood Cultures. The pt complies with a puree diet at home. Lactic Acid is downtrending. Spasticity - cont Baclofen Seizure disorder - cont Depakote Depression / Anxiety - c/w Paxil & Seroquel. N/V/D - appears to have resolved C diff study is pending. Med Surg. Full code - Lovenox prophylaxis Resident Involvement: Resident Care Provided Care Provided: Adult Hospital Medicine
--- NOTE | 2017-12-26 07:14 | DIAGNOSTIC IMAGING REPORT ---
SINGLE VIEW CHEST CLINICAL HISTORY: Fever. FINDINGS: An AP, portable, upright chest radiograph is compared to study dated 10/06/2017. The examination is significantly degraded by portable technique and patient rotation. The cardiomediastinal silhouette is unremarkable. There are low lung volumes and bibasilar atelectasis. No airspace consolidation or pleural effusion is identified. No pneumothorax is seen. The skeletal structures are osteopenic. The bony thorax is grossly intact. Degenerative change and scoliosis are noted in the thoracic spine. Hyperdense material in the left upper quadrant likely represents a radiodense ingestion. IMPRESSION: Low lung volumes with no acute cardiopulmonary abnormality. Electronically signed by: Capo Haskins M.D. 12/26/2017 7:13 AM Dictated Date/Time: 12/26/2017 7:12 AM
[2017-12-26] MEDS: [UNRECOGNIZED DRUG - REMARK] SCH ×2 (07:50→15:32)
[2017-12-26] MEDS: hydrOXYzine HCL 25 MG TAB PO SCH ×2 (07:56→13:34)
[2017-12-26] MEDS: QUETIAPINE FUMARATE 100 MG TAB PO SCH ×2 (07:56→13:34)
[2017-12-26] MEDS: BACLOFEN TAB 20 MG TAB PO SCH ×2 (07:57→13:34)
[2017-12-26] MEDS: BACLOFEN 10 MG TAB PO SCH ×2 (07:57→13:34)
[2017-12-26] MEDS ORDERED: PAROXETINE 20 MG TAB PO SCH ×2 (09:00)
[2017-12-26] MEDS ORDERED: POLYETHYLENE (MIRALAX) 17 GM PACK PO SCH (09:00)
[2017-12-26] MEDS ORDERED: FLUTICASONE PROPIONATE NA SPR 16 GM BTL NAE SCH (09:00)
[2017-12-26] MEDS ORDERED: PANTOprazole SOD 40 MG TAB PO SCH (09:00)
[2017-12-26] MEDS ORDERED: CLIN300C2 PO (15:46)
--- NOTE | 2017-12-26 15:51 | Discharge Instructions ---
Discharge Instructions Date of Service Dec 26, 2017. Admission Reason for Admission: Nausea,Vomiting,Diarrhea,Pneumonia Discharge Discharge Diagnosis / Problem: Aspiration Pneumonia Discharge Goals Goal(s): Decrease discomfort, Improve function, Increase independence, Improve disease control, Improve nutritional status, Learn about illness Activity Recommendations Activity Limitations: per Instructions/Follow-up section . Instructions / Follow-Up Instructions / Follow-Up You have been found to have an elevated white blood cell count and low grade fever while in the hospital. It is likely that the above came from aspiration pneumonia. We recommend taking the antibiotics as prescribed so your body can fight the infection and you do not get worse. The antibiotic is called Clindamycin and it should be taken every 8 hours for the next 6 days. The prescription has been sent to the [facility]. Start this medication tonight. Please eat all meals while in the upright position and continue to follow up with your speech and swallow therapist. Follow up with your primary care provider within 1-2 weeks of discharge. On discharge your blood cultures and Clostridium Difficile tests were pending. If these tests came back positive someone from the hospital will contact you. Your primary care doctor will also be able to look up the results of these tests. If your vomiting and fevers return please call your primary care doctor or return to the ER. Current Hospital Diet Patient's current hospital diet: Regular Diet Discharge Diet Recommended Diet: Regular Diet Diet Texture: Pureed (blended smooth) Pending Studies Studies pending at discharge: yes List of pending studies: Blood cultures C. Diff Cultures Laboratory Results Hemoglobin A1c Test 12/25/17 23:50 Range/Units Estimated Average Glucose 94 mg/dl Hemoglobin A1c 4.9 4.5-5.6 % Medical Emergencies . Who to Call and When: Medical Emergencies: If at any time you feel your situation is an emergency, please call 911 immediately. . Non-Emergent Contact Non-Emergency issues call your: Primary Care Provider . . "Provider Documentation" section prepared by Franklyn Peralta. . Resident Involvement: Resident Care Provided Care Provided: Adult Hospital Medicine
--- NOTE | 2017-12-26 16:10 | Discharge Summary ---
Discharge Summary Date of Service Dec 26, 2017. Discharge Summary Admission Date: Dec 26, 2017 at 01:37 Discharge Date: Dec 26, 2017 Discharge Disposition: Home Principal Diagnosis: Aspiration Pneumonia Procedures: SINGLE VIEW CHEST CLINICAL HISTORY: Fever. FINDINGS: An AP, portable, upright chest radiograph is compared to study dated 10/06/2017. The examination is significantly degraded by portable technique and patient rotation. The cardiomediastinal silhouette is unremarkable. There are low lung volumes and bibasilar atelectasis. No airspace consolidation or pleural effusion is identified. No pneumothorax is seen. The skeletal structures are osteopenic. The bony thorax is grossly intact. Degenerative change and scoliosis are noted in the thoracic spine. Hyperdense material in the left upper quadrant likely represents a radiodense ingestion. IMPRESSION: Low lung volumes with no acute cardiopulmonary abnormality. Medication Reconciliation New Medications: Clindamycin Hcl (Cleocin) 300 Mg Cap 600 MG PO TID for 6 Days, #36 CAP Continued Medications: B-Complex W/ Folic Acid (Super B Complex Maxi) 1 Tab Tab 1 TAB PO DAILY Baclofen (Baclofen) 10 Mg Tab 5 MG PO TID Baclofen (Baclofen) 20 Mg Tab 20 MG PO TID Carbamide Peroxide (Otic) (Debrox) 6.5 % Bhavana 5-10 DROPS OT WK, #15 ML Cholecalciferol (Vitamin D3) 1,000 Inter.unit Tab 5000 INTERUNIT PO DAILY Divalproex Sodium (Depakote Er) 500 Mg Tab 1000 MG PO HS Divalproex Sodium (Depakote Extended-Release) 250 Mg Tabcr 250 MG PO HS Docusate Calcium (Docusate Calcium) 240 Mg Cap 240 MG PO BID Fexofenadine HCl (Fexofenadine HCl) 180 Mg Tab 180 MG PO DAILY Fluticasone Propionate (Nasal) (Flonase Allergy Relief) 50 Mcg/Act Spr 2 SPRAYS NURYS DAILY Hydroxyzine Pamoate (Vistaril) 25 Mg Cap 1 CAP PO TID, CAP Ketoconazole (Topical) (Nizoral) 2 % Sha 1 APPLN TOP DAILY for 30 Days, #120 ML 2 Refills temples, eyebrows, back of ears, under breasts Magnesium Hydroxide (Milk Of Magnesia) 30 Ml Susp 30 ML PO PRN for Constipation Metronidazole (Topical) (Metrocream) 0.75 % Cre 1 APPLN TOP BID to face Omeprazole (Prilosec) 40 Mg Cap 40 MG PO BID, CAP Paroxetine (Paxil) 40 Mg Tab 40 MG PO QAM Paroxetine (Paxil) 20 Mg Tab 20 MG PO QAM, TAB Polyethylene Glycol 3350 (Miralax) 1 Pow Pow 17 GM PO DAILY Quetiapine Fumarate (Seroquel) 100 Mg Tab 100 MG PO TID, TAB Discharge Exam Pt was seen and examined at bedside. Mom was in the room helping discern daughter's verbal responses. Daughter was distressed because she didn't want to be here. Per nurse and mom, n/v/d has resolved. Pt had one loose BM that was not diarrhea. Pt was found to have a low grade temp of 37.7 and 37.6 in the AM. ROS: Unreliable because of pt's baseline MR and CP. Constitutional: No fever, No chills, No sweats ENT: No hearing loss Respiratory: No wheezing Abdomen: No pain Physical Exam General Appearance: WD/WN, + mild distress (pt is crying out) Eyes: normal inspection, PERRL ENT: + pertinent finding (dark dentition and halitosis) Respiratory/Chest: chest non-tender, lungs clear, normal breath sounds, no respiratory distress, no accessory muscle use Cardiovascular: regular rate, rhythm, no edema, no gallop, no JVD, no murmur Abdomen: normal bowel sounds, non tender, soft, no organomegaly, no pulsatile mass Extremities: normal range of motion, non-tender, normal inspection, no pedal edema, no calf tenderness Neurologic/Psychiatric: alert, + pertinent finding (pt is a spastic quadriplegic, unable to speak, she can phonate and I can make out 'yes' and 'no ' intermittently. ) Skin: normal color, warm/dry Hospital Course 52F Hx cerebral palsy - spastic quadriparesis, MR, seizures, chronic aspiration. The pt resides in a skilled nursing. She was brought in for n/v/d + cough x 1 day duration. She had a WBC count, mildly elevated lactate (1.9) and low grade fevers on admission (99F). No clear infiltrates on X-ray. N/V/D resolved on hospital Day #1. Speech swallow team had no additional recommendations other than what the patient was already on. Patient follows with outpatient speech and swallow specialist. Pureed diet and upright precautions. Pt was admitted on IV Cefepime and was discharged on PO Clindamycin 600mg TID x 6 days for anaerobic coverage (pt is Penicillin allergic ). Blood cultures and C. Diff results were pending on discharge. Family at bedside reports last stool was formed prior to discharge. Even if positive for C. Diff , I would only treat if symptomatic. Of note, pt was visibly upset being on the inpatient floor and calmed down dramatically when she was told she was going home and/or working on getting her home as soon as possible. Follow up with Dr. Palumbo was made 1-2 weeks after DC. Total Time Spent: Greater than 30 minutes (44) This includes examination of the patient, discharge planning, medication reconciliation, and communication with other providers. Discharge Instructions Please refer to the electronic Patient Visit Report (Discharge Instructions) for additional information. Additional Copies To Leighann Palumbo D.O. Resident Involvement: Resident Care Provided Care Provided: Adult Hospital Medicine Reviewed: Pt Seen/Exam by Me History breathing better always congested in nose and has phlegm patient nonverbal Constitutional: denies: fever General Appearance: no apparent distress Respiratory: no respiratory distress, decreased breath sounds (base) Cardiovascular: regular rate, rhythm Gastrointestinal: soft Neurologic/Psychiatric: alert Skin Characteristics: warm/dry Assessment/Plan Resident Physician Supervision Note: I independently interviewed and examined the patient and verified the toth history and physical, reviewed labs and image studies, discussed the case with the resident Dr. Peralta and agree with the findings and care plan.
[2017-12-26] MEDS ORDERED: DIVALPROEX 250 MG EXTENDED REL TAB PO SCH (21:00)
[2017-12-26] MEDS ORDERED: DIVALPROEX 500 MG EXTENDED RELEASE TAB PO SCH (21:00)
== END 2017-12-26 17:41 | disposition home or self-care (01) | DRG 178 ==
LOC: C.EDB 22:59 → C.MS2W 12-26 01:37 → ENRESERV 12-26 01:50
PROVIDERS: ADMIT Internal Medicine; ATTEND Internal Medicine
DX: J69.0 Pneumonitis due to inhalation of food and vomit (principal); F72 Severe intellectual disabilities; G80.1 Spastic diplegic cerebral palsy; G40.909 Epilepsy, unspecified, not intractable, without status epilepticus; Z88.1 Allergy status to other antibiotic agents

== ENCOUNTER 2018-05-05 17:59 | Emergency (ER) | payer OTHER ==
[~2018-05-05] VITALS: Ht 152.4 cm; Wt 48.0 kg
[~2018-05-05 17:59] MED LIST changes: -BUPR75TA20 PO; +CARB1SOL8 OT; +HYDR25CA PO; -OSEL75CA12 PO; +PARO1TAB27 PO
[2018-05-05 18:09] VITALS: TEMP 37.1
[2018-05-05 18:22] VITALS: O2SAT 96
--- NOTE | 2018-05-05 19:16 | EMERGENCY ROOM VISIT NOTE ---
History First contact with patient: 18:27 Chief Complaint: RESPIRATORY PROBLEMS Stated Complaint: POSSIBLE ASPIRATION Nursing Triage Summary: pt presents to ER today for concern of aspiration pneumonia per caregiver patient has had increased wheezing and a decreased appetite pt speaking clearly and swallowing sputum purposefully History of Present Illness The patient is a 53 year old female who presents to the Emergency Room with her caregiver who has concerns for possible aspiration. The patient has a history of aspiration pneumonia. She is chronically debilitated and is under the care of [facility]. The caregiver notes that she has had some increased work of breathing and decreased appetite today. She frequently gags with her meals. The patient was not complaining of any pain. No exacerbating or relieving factors noted. The patient denies chest pain, headache, abdominal pain, or difficulty breathing. The history is limited secondary to the patient's mental status. Review of Systems Limited secondary mental status. Past Medical/Surgical History Medical Problems: (1) Abdominal pain (2) Calculus, kidney (3) Cerebral palsy (4) Cerebral palsy (5) Colitis (6) Constipation (7) Dehydration (8) Dysphasia (9) Fever (10) Influenza (11) Intractable vomiting (12) Mental retardation (13) Pneumonia (14) Refuses to eat Family History Unobtainable due to patient's condition Social History Smoking Status: Never Smoker Alcohol Use: none Drug Use: none Marital Status: single Housing Status: assisted living Occupation Status: disabled Current/Historical Medications Scheduled B-Complex W/ Folic Acid (Super B Complex Maxi), 1 TAB PO DAILY Baclofen (Baclofen), 5 MG PO TID Baclofen (Baclofen), 20 MG PO TID Carbamide Peroxide (Otic) (Debrox), 5-10 DROPS OT WK Cholecalciferol (Vitamin D3), 5,000 INTERUNIT PO DAILY Divalproex Sodium (Depakote Er), 1,000 MG PO HS Divalproex Sodium (Depakote Extended-Release), 250 MG PO HS Docusate Calcium (Docusate Calcium), 240 MG PO BID Fexofenadine HCl (Fexofenadine HCl), 180 MG PO DAILY Fluticasone Propionate (Nasal) (Flonase Allergy Relief), 2 SPRAYS NURYS DAILY Hydroxyzine Pamoate (Vistaril), 1 CAP PO TID Ketoconazole (Topical) (Nizoral), 1 APPLN TOP DAILY Metronidazole (Topical) (Metrocream), 1 APPLN TOP BID Omeprazole (Prilosec), 40 MG PO BID Paroxetine (Paxil), 40 MG PO QAM Paroxetine (Paxil), 20 MG PO QAM Polyethylene Glycol 3350 (Miralax), 17 GM PO DAILY Quetiapine Fumarate (Seroquel), 100 MG PO TID Scheduled PRN Magnesium Hydroxide (Milk Of Magnesia), 30 ML PO for Constipation Physical Exam Vital Signs Date Time Temp Pulse Resp B/P (MAP) Pulse Ox O2 Delivery O2 Flow Rate FiO2 05/05/18 22:51 108 22 139/88 96 Room Air 05/05/18 18:22 96 Room Air 05/05/18 18:20 99 Room Air 05/05/18 18:09 37.1 100 20 100 Physical Exam GENERAL: Awake, alert, well-appearing, in no distress HENT: Normocephalic, atraumatic. Oropharynx unremarkable. EYES: Normal conjunctiva. Sclera non-icteric. NECK: Supple. No nuchal rigidity. FROM. No masses. RESPIRATORY: Clear to auscultation. No wheezes. No rales. Normal respiratory effort. CARDIAC: Borderline tachycardia rate. Normal rhythm. No murmurs. No rubs. Extremities warm and well perfused. Pulses equal. No JVD. GI: Soft, non-distended. No tenderness to palpation. No rebound or guarding. No masses. RECTAL: Deferred. MUSCULOSKELETAL: Muscular atrophy and chronic contractures noted of the upper and lower extremities. 1+ lower extremity edema present which the patient's caregiver states is normal for the patient. NEURO: Normal sensorium. Difficulty in accurately assessing full neuro exam secondary to the patient's chronic debilitated status. SKIN: No rash or jaundice noted. Medical Decision & Procedures ER Provider Diagnostic Interpretation: Imaging studies: Chest x-ray. Findings: A chest x-ray was performed and revealed no pneumothorax, effusion, infiltrate, pulmonary edema, free air under the diaphragm, or wide mediastinum. Impression: No acute disease. CT scan of the chest revealed no evidence of pneumothorax, pneumonia, foreign body, or significant abnormality other than esophageal dilatation. Laboratory Results 05/05/18 18:52 Red Blood Count 4.59, Mean Corpuscular Volume 94.6, Mean Corpuscular Hemoglobin 32.0, Mean Corpuscular Hemoglobin Concent 33.9, Mean Platelet Volume 11.3, Neutrophils (%) (Auto) 44.7, Lymphocytes (%) (Auto) 47.9, Monocytes (%) (Auto) 6.5, Eosinophils (%) (Auto) 0.5, Basophils (%) (Auto) 0.2, Neutrophils # (Auto) 4.98, Lymphocytes # (Auto) 5.32, Monocytes # (Auto) 0.72, Eosinophils # (Auto) 0.05, Basophils # (Auto) 0.02 05/05/18 18:52 Test 05/05/18 18:52 White Blood Count 11.11 K/uL (4.8-10.8) Red Blood Count 4.59 M/uL (4.2-5.4) Hemoglobin 14.7 g/dL (12.0-16.0) Hematocrit 43.4 % (37-47) Mean Corpuscular Volume 94.6 fL (80-100) Mean Corpuscular Hemoglobin 32.0 pg (25-34) Mean Corpuscular Hemoglobin Concent 33.9 g/dl (32-36) Platelet Count 279 K/uL (130-400) Mean Platelet Volume 11.3 fL (7.4-10.4) Neutrophils (%) (Auto) 44.7 % Lymphocytes (%) (Auto) 47.9 % Monocytes (%) (Auto) 6.5 % Eosinophils (%) (Auto) 0.5 % Basophils (%) (Auto) 0.2 % Neutrophils # (Auto) 4.98 K/uL (1.4-6.5) Lymphocytes # (Auto) 5.32 K/uL (1.2-3.4) Monocytes # (Auto) 0.72 K/uL (0.11-0.59) Eosinophils # (Auto) 0.05 K/uL (0-0.5) Basophils # (Auto) 0.02 K/uL (0-0.2) RDW Standard Deviation 51.1 fL (36.4-46.3) RDW Coefficient of Variation 14.8 % (11.5-14.5) Immature Granulocyte % (Auto) 0.2 % Immature Granulocyte # (Auto) 0.02 K/uL (0.00-0.02) Anion Gap 9.0 mmol/L (3-11) Estimated GFR () 139.2 Estimated GFR (Non- 120.1 BUN/Creatinine Ratio 26.9 (10-20) Calcium Level 9.2 mg/dl (8.5-10.1) Total Bilirubin 0.3 mg/dl (0.2-1) Aspartate Amino Transf (AST/SGOT) 20 U/L (15-37) Alanine Aminotransferase (ALT/SGPT) 22 U/L (12-78) Alkaline Phosphatase 99 U/L (45-117) Total Protein 7.4 gm/dl (6.4-8.2) Albumin 3.2 gm/dl (3.4-5.0) Globulin 4.2 gm/dl (2.5-4.0) Albumin/Globulin Ratio 0.8 (0.9-2) Medical Decision Prior records/ancillary studies reviewed. Triage Nursing notes reviewed and agree them. Additional history obtained from the patient's caregiver The patient's history was concerning for shortness of breath. Differential diagnosis: Etiologies such as aspiration, pneumonia, COPD, reactive airway disease, CHF, foreign body, infections, gastrointestinal, as well as others were entertained. Physical examination: As above. No distress. ER treatment provided: No medication given. Observation On reassessment the patient was stable. Diagnostic interpretation by me: The labs revealed a subtle leukocytosis of 11,000. Chemistry panel unremarkable. Imaging studies: Chest x-ray and CT scan as above . Other workup above there is no evidence of pneumonia or aspiration at this time. By the evaluation outlined above other emergent etiologies such as those listed in the differential, as well as others, were deemed relatively unlikely. I discussed conservative management with the patient's caregiver. I asked for her to have close outpatient follow-up with her primary physician in 1-2 days. If she has any worsening symptoms she will be brought back to the ER for reevaluation. The caregiver was educated about the findings as listed above. All questions were answered and they were pleased with the treatment. Return instructions were outlined and the patient was discharged in stable condition. The patient was referred to her PCP for follow-up for a recheck of the current condition. Impression Primary Impression: Leukocytosis Additional Impression: Evaluation for possible aspiration Departure Information Dispostion Home / Self-Care Condition GOOD Referrals Leighann Palumbo D.O. (PCP) Patient Instructions My [facility] Additional Instructions Continue current medications. It is okay to give evening medications that were due tonight and missed due to the ER visit. Tylenol 650 mg every 6 hours as needed for any fever or pain. Continue current care as outlined by PCP. Follow-up with a primary physician in 1-2 days for recheck. Return to the ER for difficulty swallowing, chest pain, difficulty breathing, fevers, vomiting, worsening of your condition, or as needed. Problem Qualifiers
--- NOTE | 2018-05-05 19:20 | DIAGNOSTIC IMAGING REPORT ---
CHEST ONE VIEW PORTABLE CLINICAL HISTORY: Possible aspiration. COMPARISON STUDY: Chest radiograph December 25, 2017. FINDINGS: Lung volumes are diminished. This is unchanged. S-shaped scoliosis of the spine is again noted. There is no pneumothorax or pleural effusion. Old right first rib fracture is noted. There is no evidence for pulmonary edema. Cardiomediastinal silhouette is stable. Apparent mild left basilar opacity is likely due to normal vessels. IMPRESSION: No acute cardiopulmonary findings. Electronically signed by: Jignesh Ibrahim M.D. 05/05/2018 7:19 PM Dictated Date/Time: 05/05/2018 7:16 PM
[2018-05-05 19:32] LABS: ALBUMIN 3.2 gm/dl (3.4-5.0); ALKALINE PHOSPHATASE 99 U/L (45-117); ALT/SGPT 22 U/L (12-78); AST/SGOT 20 U/L (15-37); BLOOD UREA NITROGEN 10 mg/dl (7-18); CALCIUM 9.2 mg/dl (8.5-10.1); CARBON DIOXIDE 25 mmol/L (21-32); CREATININE 0.38 mg/dl (0.60-1.20); GLUCOSE 93 mg/dl (70-99); POTASSIUM 4.5 mmol/L (3.5-5.1); SODIUM 138 mmol/L (136-145); TOTAL PROTEIN 7.4 gm/dl (6.4-8.2)
[2018-05-05 20:06] LABS: BASO % 0.2 %; BASO ABS # 0.02 K/uL (0-0.2); EOS % 0.5 %; EOS ABS # 0.05 K/uL (0-0.5); HEMATOCRIT 43.4 % (37-47); HEMOGLOBIN 14.7 g/dL (12.0-16.0); IG# 0.02 K/uL (0.00-0.02); LYMPH % 47.9 %; LYMPH ABS # 5.32 K/uL (1.2-3.4); MEAN CELL VOLUME 94.6 fL (80-100); MEAN CORPUSCULAR HGB CONC 33.9 g/dl (32-36); MEAN PLATELET VOLUME 11.3 fL (7.4-10.4); MONO % 6.5 %; MONO ABS # 0.72 K/uL (0.11-0.59); NEUT % 44.7 %; NEUT ABS # 4.98 K/uL (1.4-6.5); PLATELET COUNT 279 K/uL (130-400); RED CELL DISTRIBUTION WIDTH CV 14.8 % (11.5-14.5); RED CELL DISTRIBUTION WIDTH SD 51.1 fL (36.4-46.3); WHITE BLOOD COUNT 11.11 K/uL (4.8-10.8)
[2018-05-05 22:02] VITALS: Ht 152.4 cm; Wt 48.0 kg
--- NOTE | 2018-05-05 22:25 | DIAGNOSTIC IMAGING REPORT ---
CT OF THE CHEST WITHOUT IV CONTRAST CLINICAL HISTORY: Possible aspiration pneumonia. COMPARISON STUDY: Chest radiograph December 25, 2017 and May 05, 2018. CT DOSE: 266.58 mGy.cm TECHNIQUE: Axial images of the chest were obtained without IV contrast. Images were reviewed in the axial, sagittal, and coronal planes. IV contrast was not administered for this examination. A dose lowering technique was utilized adhering to the principles of ALARA. FINDINGS: Chronic deformity of the thorax is noted with scoliosis. Size of the heart is normal. There is no pericardial effusion. Moderate esophageal dilatation is noted. A small amount of fluid within the esophagus is noted. No pneumothorax or pleural effusion is noted. No consolidation is identified. Mild groundglass opacities within the lungs favor atelectasis. No acute thoracic spine fracture is present. Upper abdomen is grossly unremarkable. There may be a small hiatal hernia. There is no thoracic lymphadenopathy. IMPRESSION: 1. No consolidation to suggest pneumonia. 2. Moderate esophageal dilatation which contains trace fluid. Possible small hiatal hernia. Electronically signed by: Jignesh Ibrahim M.D. 05/05/2018 10:24 PM Dictated Date/Time: 05/05/2018 10:19 PM
[2018-05-05 22:51] VITALS: BP 139/88; PULSE 108; O2SAT 96
== END 2018-05-05 23:01 | disposition home or self-care (01) ==
LOC: C.EDB 18:00 → C.EDA 23:01
DX: D72.829 Elevated white blood cell count, unspecified (principal); G80.9 Cerebral palsy, unspecified; F79 Unspecified intellectual disabilities; Z79.899 Other long term (current) drug therapy

== ENCOUNTER 2019-11-14 14:03 | Inpatient (IN) ==
[2019-11-14] MEDS ORDERED: SODIUM CHLORIDE 0.9% 1000ML 1,000 ML IV ONE ×2 (14:18)
[2019-11-14] MEDS ORDERED: ACETAMINOPHEN 325 MG TAB PO STA (14:18)
[2019-11-14 15:21] LABS: Basophils # (auto) 0.02 K/uL (0-0.2); Basophils % (auto) 0.2 %; Eosinophils # (auto) 0.03 K/uL (0-0.5); Eosinophils % (auto) 0.3 %; Hematocrit (blood only) 41.7 % (37-47); Hemoglobin 14.1 g/dL (12.0-16.0); Immature Granulocytes # (auto) 0.07 K/uL (0.00-0.02); Immature Granulocytes % (auto) 0.7 %; Lymphocytes # (auto) 1.71 K/uL (1.2-3.4); Mean Corpuscular Hemoglobin 32.4 pg (25-34); Mean Corpuscular Hgb Conc 33.8 g/dL (32-36); Mean Corpuscular Volume 95.9 fL (80-100); Mean Platelet Volume 10.9 fL (7.4-10.4); Monocytes # (auto) 1.47 K/uL (0.11-0.59); Monocytes % (auto) 15.4 %; Neutrophils # (auto) 6.22 K/uL (1.4-6.5); Neutrophils % (auto) 65.4 %; Platelet Count 198 K/uL (130-400); RDW Coefficient of Variation 14.2 % (11.5-14.5); RDW Standard Deviation 50.2 fL (36.4-46.3); Red Blood Count 4.35 M/uL (4.2-5.4); White Blood Count 9.52 K/uL (4.8-10.8)
[2019-11-14 15:26] LABS: Influenza A virus by PCR Neg for Influ A (Neg)
[2019-11-14 15:31] LABS: Partial Thromboplastin Ratio 0.9; Partial Thromboplastin Time 24.6 Seconds (21.0-31.0); Prothrombin Time 10.2 Seconds (9.0-12.0)
[2019-11-14 15:37] LABS: Albumin Level 3.3 gm/dl (3.4-5.0); Calcium 9.5 mg/dl (8.5-10.1); Creatinine Clr Calc Pharmacy 102.6 ml/min; Est GFR (African American) 127.1; Est GFR (Non-African American) 109.7; Magnesium 1.8 mg/dl (1.8-2.4); Potassium 4.1 mmol/L (3.5-5.1)
[2019-11-14] MEDS ORDERED: OSELTAMIVIR PHOSPHATE 75 MG CAP PO STA (15:39)
[2019-11-14 15:40] LABS: Albumin Globulin Ratio 0.7 (0.9-2); Bilirubin,Total 0.2 mg/dl (0.2-1); Globulin 4.5 gm/dl (2.5-4.0); Total Protein 7.8 gm/dl (6.4-8.2)
--- NOTE | 2019-11-14 16:29 | XRay Report ---
XR chest 1V portable HISTORY: 54 years-old Female SEPSIS acute sepsis COMPARISON: Chest radiograph 09/03/2019 TECHNIQUE: Portable AP view of the chest FINDINGS: Cardiac silhouette is mildly enlarged, unchanged. Lung volumes with bronchovascular crowding. Chronic deformity of the right upper chest. Patient is again side bent and rotated. No pneumothorax, pleural effusion, overt pulmonary edema or airspace consolidation typical for pneumonia. Mild chronic inters titial coarsening of the lung bases. Minimal right perihilar and right lung base linear opacities. Axel lam appear grossly intact. IMPRESSION: 1. Hypoinflation with bronchovascular crowding. 2. Unchanged mild linear right perihilar and right lung base opacities suggestive of atelectasis. ACT 112: Negative or not required by law. The above report was generated using voice recognition software. It may contain grammatical, syntax o r spelling errors. Electronically signed by: Barrington Wick M.D. 11/14/2019 4:28 PM
[2019-11-14] MEDS ORDERED: CLINDAMYCIN 600 MG/54 ML BAG IV ONE (16:56)
--- NOTE | 2019-11-14 18:01 | History & Physical Report ---
Date of Service November 14, 2019 Assessment & Plan (1) Aspiration pneumonia: Admit to PCU on telemetry. Vital signs every 4 hours. Started clindamycin in the ER for possible aspiration pneumonia versus pneumonitis, continue with clindamycin 600 mg every 8 hours IV. For atypical organisms added doxycycline 100 mg IV twice daily since patient has difficulty swallowing. Speech consult pending. Patient eats pured diet. Started ipratropiumlow albuterol nebs every 6 hours scheduled as as needed per RT.. Magnesium borderline 1.8. Will replenish with 1 g IV. Started Robitussin 10 mils p.o. every 6 hours as needed for cough. Solu-Medrol 40 mg IV twice daily trend down to p.o. when patient able to swallow. Continue pantoprazole 40 mg p.o. twice daily. Gently replenish fluids. DVT prophylaxis Lovenox 40 mg subcu daily. Full code Present on Admission?: Yes (2) Influenza B: As the above, started oseltamavir 75 mg p.o. twice daily. Present on Admission?: Yes (3) Dehydration: Fluid replenishment started in the ER continue inpatient. Monitor CBC and CMP. Present on Admission?: Yes (4) Cerebral palsy: Stable at this point, continue home medicine Seroquel 25 mg p.o. every morning 50 mg p.o. daily, 200 mg p.o. nightly, hydroxyzine 25 mg p.o. 3 times daily, paroxetine 40 mg p.o. every morning, divalproex thousand milligrams p.o. nightly and 500 mg p.o. every morning, baclofen 20 mg p.o.3 times daily 5 mg p.o. 3 times daily seizure precaution. Present on Admission?: Yes (5) Mental retardation: Continue home medicine and monitoring. Present on Admission?: Yes (6) Constipation: Continue home medicine MiraLAX 17 mg p.o. every morning and 17 mg p.o. daily as needed for constipation Present on Admission?: Yes History of Present Illness Chief Complaint: shortness of breath and cough Primary Care Provider: Leighann Palumbo, DO The patient is a 54 years old female with cerebral palsy, dysphasia, brought by her glass lined tank repairer who states that patient is not feeling very well and has not been eating or drinking normally and she was concerned that patient is dehydrated. Patient is coming from [facility] as she is a and able only to answer yes or no. The patient was evaluated on the November 05, and had physical exam when was noted that she has productive cough. She was started at that time on Mucinex for 1 week but this did not help. Patient is unable to review systems due to cerebral palsy. Caregiver reports that she gave patient ibuprofen without much relief and that patient did not miss any of her medicines. Per day care home mother patient did not have a sick contact. Caregiver denies fever, chills, chest pain, shortness of breath, abdominal pain, frequency, urgency as reported per caregiver.Echocardiogram reviewed and shows sinus tachycardia with ST and T wave abnormality in the inferior leads. Labs are reviewed which shows WBCs of 9.52, hemoglobin 14.1, hematocrit 41.7, platelets 198 no left shift. Sodium 135, potassium 4.1, chloride 103, carbon dioxide 24, anion gap 8, BUN 11, creatinine 1.0 49, GFR 109.7,Total bili 0.2, AST 61, ALT 41, alkaline phosphatase 86, BNP 451, albumin 3.3, globulin 4.5, procalcitonin 0.08 and TSH 8.16 with free T4 pending. Influenza B positive. Chest x-ray shows hypoinflation with bronco vascular crowding. Unchanged mild liner right perihilar and right lung base opacity suggestive of atelectasis. Decision was made to admit to PCU on telemetry for possible pneumonia and influenza B in the setting of patient being debilitated and having lifelong disability-cerebral palsy. Allergies Allergy/AdvReac Type Severity Reaction Status Date / Time amoxicillin Allergy Unknown UNKNOWN Verified 11/14/19 15:04 clavulanic acid Allergy Unknown UNKNOWN Verified 11/14/19 15:04 Home Medications Home Medications Medication Instructions Recorded Confirmed Type baclofen 5 mg PO TID 11/14/19 11/14/19 History baclofen 20 mg PO TID 11/14/19 11/14/19 History carbamide peroxide [Debrox] 5 - 10 drp OTIC (EAR) MO 11/14/19 11/14/19 History divalproex 1,000 mg PO HS 11/14/19 11/14/19 History divalproex 500 mg PO QAM 11/14/19 11/14/19 History docusate calcium 240 mg PO DAILY@1600,2000 11/14/19 11/14/19 History fexofenadine [Jayleen Allergy] 180 mg PO QAM 11/14/19 11/14/19 History fluticasone propionate 2 spray INTRANASAL QAM 11/14/19 11/14/19 History hydroxyzine pamoate 25 mg PO TID 11/14/19 11/14/19 History ketoconazole 1 applic TOPICAL BID PRN 11/14/19 11/14/19 History metronidazole 1 applic TOPICAL BID 11/14/19 11/14/19 History omeprazole 40 mg PO BID 11/14/19 11/14/19 History paroxetine HCl 40 mg PO QAM 11/14/19 11/14/19 History polyethylene glycol 3350 17 g PO QAM 11/14/19 11/14/19 History quetiapine 25 mg PO QAM 11/14/19 11/14/19 History quetiapine 50 mg PO DAILY@1400 11/14/19 11/14/19 History quetiapine 200 mg PO HS 11/14/19 11/14/19 History vitamin B comp and C no.3 1 cap PO QAM 11/14/19 11/14/19 History Past Med/Surg History Medical History Abdominal pain (Resolved) Calculus, kidney (Resolved) Cerebral palsy (Chronic) Colitis (Resolved) Constipation (Resolved) Dehydration (Resolved) Dysphasia (Inactive) Fever (Resolved) Influenza (Resolved) Intractable vomiting (Resolved) Mental retardation (Chronic) Pneumonia (Resolved) Refuses to eat (Resolved) Sepsis (Inactive) Surgical History No pertinent past surgical history Family History Other Cancer Hypertension Social History Preferred Language: [place]an Communication Ability: Impaired Concrete Gun Operator Required: No Beliefs That Will Affect Care: None Current Living Situation: Senior Care Feels Safe at Home: Yes Safety Concerns: Feels Safe At This Time Smoking Status: Never smoker Do You Dip or Chew Tobacco: No ; Second Hand Exposure: No ; Tobacco Cessation Education Requested by Patient: No Hx Alcohol Use: No Hx Substance Use: No Review of Systems Review of Systems: All systems reviewed & are unremarkable except as noted in HPI & below Physical Exam Constitutional: WD/WN, vitals as above well developed and + ill appearing Eyes: PERRL, conjunctivae normal, anicteric sclerae ENMT: Ears: + hearing impairment Neck: trachea midline, no thyromegaly Respiratory: Auscultation: + crackles, + rales and + wheezes Cardiovascular: Heart Sounds: normal S1, normal S2 and + murmur Vessels: normal peripheral pulses Gastrointestinal (Abdomen): normal bowel sounds, soft, nontender, no hepatosplenomegaly Musculoskeletal: no cyanosis or clubbing, extremities motor strength 5/5 Skin: no rashes, warm and dry Neurologic: patellar DTR's 2+ bilat, sensation intact Psychiatric: A+Ox3, euthymic affect Lymphatic: no cervical or axillary lymphadenopathy Results & Data Vital Signs (Past 12 Hours) Vital Signs Temp Pulse Pulse Resp BP BP Pulse Ox 11/14/19 16:50 114 H 24 94 11/14/19 16:40 116 H 15 95 11/14/19 16:31 114 H 15 95 11/14/19 16:30 115 H 20 133/98 94 11/14/19 16:20 119 H 20 94 11/14/19 16:10 119 H 19 93 11/14/19 16:01 120 H 18 94 11/14/19 16:00 122 H 16 132/107 H 94 11/14/19 15:50 123 H 22 94 11/14/19 15:40 136 H 23 96 11/14/19 15:31 125 H 16 94 11/14/19 15:30 125 H 17 134/104 H 94 11/14/19 15:26 127 H 15 148/102 H 94 11/14/19 15:24 93 11/14/19 15:20 128 H 18 95 11/14/19 15:10 123 H 21 93 11/14/19 15:01 125 H 19 94 11/14/19 15:00 125 H 17 134/119 H 94 11/14/19 14:50 128 H 21 94 11/14/19 14:48 126 H 20 148/102 H 95 11/14/19 14:40 126 H 30 H 95 11/14/19 14:30 128 H 23 128/108 H 94 11/14/19 14:26 130 H 17 96 11/14/19 14:20 129 H 16 151/114 H 94 11/14/19 14:13 36.8 C 132 H 19 204/126 H 95 Code Status & VTE Plan Code Status Full code VTE Prophylaxis Plan VTE Prophylaxis will be ordered: Yes PG Care Time/CCT Total # of Minutes Spent Total Time Spent with Patient: Total time spent is greater than 50% in coordination of care (as documented) at patient's floor/unit and/or counseling patient: Coding Level of Care Code 57183 Initial Inpt Care Lvl 3 Diagnoses Aspiration pneumonia J69.0 Aspiration pneumonia type: unspecified Laterality: right Lung location: unspecified part of lung Influenza B J10.1 Dehydration E86.0 Cerebral palsy G80.9 Mental retardation F79 Constipation K59.00 (1) Aspiration pneumonia Aspiration pneumonia type: unspecified Laterality: right Lung location: unspecified part of lung Qualified Code(s): J69.0 - Pneumonitis due to inhalation of food and vomit
--- NOTE | 2019-11-14 18:44 | Emergency Department Note ---
Entered by Devang Noble acting as a scribe for History of Present Illness General Chief complaint: Respiratory Problems Stated complaint: aspirated, fluid/food Time Seen by Provider: 11/14/19 14:07 Source: patient History of Present Illness Onset (ago): week(s) 1 Location: chest Pain Consistency: + other (worsening) Quality: + other (cough) Associated symptoms: + denies other symptoms (trouble breathing) and + other (fever, decreased eating and drinking) The patient is a 54 y/o white female w/ PMHx pneumonia, sepsis, MR, cerebral palsy, dysphasia, influenza who presents to the ED w/ CC of a worsening cough beginning a week ago. The patient presents from [place] [facility] and is able to answer yes and no questions. She denies body aches, pain, and trouble taking her medication. The patient notes her breathing is okay. The patient's salon shampoo assistant states the patient has not been eating and drinking normally, and she is concerned the patient is dehydrated. She reports the patient was evaluated on the and had a physical exam that showed she has drainage. The salon shampoo assistant notes she was told to give the patient Mucinex for a week, and this has not helped. She notes the patient now has audiable wheezes and is afraid she may have aspirated. She states the patient has been awake since 2am, and this is not like her. The salon shampoo assistant reports the patient was given ibuprofen without much relief and has not missed her medication. She notes the patient eats and takes medication orally. The salon shampoo assistant notes the patient's housemate has not been si ck. Home Medications Home Medications Medication Instructions Recorded Confirmed Type baclofen 5 mg PO TID 11/14/19 11/14/19 History baclofen 20 mg PO TID 11/14/19 11/14/19 History carbamide peroxide [Debrox] 5 - 10 drp OTIC (EAR) MO 11/14/19 11/14/19 History divalproex 1,000 mg PO HS 11/14/19 11/14/19 History divalproex 500 mg PO QAM 11/14/19 11/14/19 History docusate calcium 240 mg PO DAILY@1600,2000 11/14/19 11/14/19 History fexofenadine [Jayleen Allergy] 180 mg PO QAM 11/14/19 11/14/19 History fluticasone propionate 2 spray INTRANASAL QAM 11/14/19 11/14/19 History hydroxyzine pamoate 25 mg PO TID 11/14/19 11/14/19 History ketoconazole 1 applic TOPICAL BID PRN 11/14/19 11/14/19 History metronidazole 1 applic TOPICAL BID 11/14/19 11/14/19 History omeprazole 40 mg PO BID 11/14/19 11/14/19 History paroxetine HCl 40 mg PO QAM 11/14/19 11/14/19 History polyethylene glycol 3350 17 g PO QAM 11/14/19 11/14/19 History quetiapine 25 mg PO QAM 11/14/19 11/14/19 History quetiapine 50 mg PO DAILY@1400 11/14/19 11/14/19 History quetiapine 200 mg PO HS 11/14/19 11/14/19 History vitamin B comp and C no.3 1 cap PO QAM 11/14/19 11/14/19 History Allergies Allergy/AdvReac Type Severity Reaction Status Date / Time amoxicillin Allergy Unknown UNKNOWN Verified 11/14/19 15:04 clavulanic acid Allergy Unknown UNKNOWN Verified 11/14/19 15:04 Past Med/Surg History Medical History Abdominal pain (Resolved) Calculus, kidney (Resolved) Cerebral palsy (Chronic) Colitis (Resolved) Constipation (Resolved) Dehydration (Resolved) Dysphasia (Inactive) Fever (Resolved) Influenza (Resolved) Intractable vomiting (Resolved) Mental retardation (Chronic) Pneumonia (Resolved) Refuses to eat (Resolved) Sepsis (Inactive) Surgical History No pertinent past surgical history Family History Other Cancer Hypertension Social History Feels Safe at Home: Yes Smoking Status: Never smoker Review of Systems See HPI for pertinent positives & negatives. and A total of 10 systems reviewed and were otherwise negative Physical Exam Vital Signs Vital Signs - 24 hr 11/14/19 14:13 11/14/19 14:20 11/14/19 14:26 Temperature 36.8 C Temperature Source Oral Pulse Rate 132 H 129 H 130 H Pulse Rate [Right Finger] Pulse Rate from SpO2 Sensor 129 H 132 H Pulse Rhythm Regular Respiratory Rate 19 16 17 Respiratory Effort / Characteristics Non-Labored Respiratory Depth Normal Respiratory Pattern Regular Blood Pressure 204/126 H 151/114 H Blood Pressure [Right Arm] Blood Pressure Mean 152 129 Blood Pressure Mean [Right Arm] Blood Pressure Position [Right Arm] Pulse Oximetry 95 94 96 Oxygen Delivery Method Room Air Room Air Sepsis Recent Fever Within 48 Hours Yes Sepsis New/Unexplained Change in Mental Status No Sepsis Action Taken by Nursing No Action Required 11/14/19 14:30 11/14/19 14:40 11/14/19 14:48 Temperature Temperature Source Pulse Rate 128 H 126 H Pulse Rate [Right Finger] 126 H Pulse Rate from SpO2 Sensor 128 H 127 H Pulse Rhythm Respiratory Rate 23 30 H 20 Respiratory Effort / Characteristics Non-Labored Spontaneous Respiratory Depth Normal Respiratory Pattern Regular Blood Pressure 128/108 H Blood Pressure [Right Arm] 148/102 H Blood Pressure Mean 110 Blood Pressure Mean [Right Arm] 117 Blood Pressure Position [Right Arm] Lying Pulse Oximetry 94 95 95 Oxygen Delivery Method Room Air Sepsis Recent Fever Within 48 Hours Sepsis New/Unexplained Change in Mental Status Sepsis Action Taken by Nursing 11/14/19 14:50 11/14/19 15:00 11/14/19 15:01 Temperature Temperature Source Pulse Rate 128 H 125 H 125 H Pulse Rate [Right Finger] Pulse Rate from SpO2 Sensor 128 H 125 H 125 H Pulse Rhythm Respiratory Rate 21 17 19 Respiratory Effort / Characteristics Respiratory Depth Respiratory Pattern Blood Pressure 134/119 H Blood Pressure [Right Arm] Blood Pressure Mean 125 Blood Pressure Mean [Right Arm] Blood Pressure Position [Right Arm] Pulse Oximetry 94 94 94 Oxygen Delivery Method Sepsis Recent Fever Within 48 Hours Sepsis New/Unexplained Change in Mental Status Sepsis Action Taken by Nursing 11/14/19 15:10 11/14/19 15:20 11/14/19 15:24 Temperature Temperature Source Pulse Rate 123 H 128 H Pulse Rate [Right Finger] Pulse Rate from SpO2 Sensor 124 H 128 H Pulse Rhythm Respiratory Rate 21 18 Respiratory Effort / Characteristics Respiratory Depth Respiratory Pattern Blood Pressure Blood Pressure [Right Arm] Blood Pressure Mean Blood Pressure Mean [Right Arm] Blood Pressure Position [Right Arm] Pulse Oximetry 93 95 93 Oxygen Delivery Method Room Air Sepsis Recent Fever Within 48 Hours Sepsis New/Unexplained Change in Mental Status Sepsis Action Taken by Nursing 11/14/19 15:26 11/14/19 15:30 11/14/19 15:31 Temperature Temperature Source Pulse Rate 127 H 125 H 125 H Pulse Rate [Right Finger] Pulse Rate from SpO2 Sensor 127 H 125 H 125 H Pulse Rhythm Respiratory Rate 15 17 16 Respiratory Effort / Characteristics Respiratory Depth Respiratory Pattern Blood Pressure 148/102 H 134/104 H Blood Pressure [Right Arm] Blood Pressure Mean 123 117 Blood Pressure Mean [Right Arm] Blood Pressure Position [Right Arm] Pulse Oximetry 94 94 94 Oxygen Delivery Method Sepsis Recent Fever Within 48 Hours Sepsis New/Unexplained Change in Mental Status Sepsis Action Taken by Nursing 11/14/19 15:40 11/14/19 15:50 11/14/19 16:00 Temperature Temperature Source Pulse Rate 136 H 123 H 122 H Pulse Rate [Right Finger] Pulse Rate from SpO2 Sensor 136 H 123 H 122 H Pulse Rhythm Respiratory Rate 23 22 16 Respiratory Effort / Characteristics Respiratory Depth Respiratory Pattern Blood Pressure 132/107 H Blood Pressure [Right Arm] Blood Pressure Mean 112 Blood Pressure Mean [Right Arm] Blood Pressure Position [Right Arm] Pulse Oximetry 96 94 94 Oxygen Delivery Method Sepsis Recent Fever Within 48 Hours Sepsis New/Unexplained Change in Mental Status Sepsis Action Taken by Nursing 11/14/19 16:01 11/14/19 16:10 11/14/19 16:20 Temperature Temperature Source Pulse Rate 120 H 119 H 119 H Pulse Rate [Right Finger] Pulse Rate from SpO2 Sensor 120 H 119 H 119 H Pulse Rhythm Respiratory Rate 18 19 20 Respiratory Effort / Characteristics Respiratory Depth Respiratory Pattern Blood Pressure Blood Pressure [Right Arm] Blood Pressure Mean Blood Pressure Mean [Right Arm] Blood Pressure Position [Right Arm] Pulse Oximetry 94 93 94 Oxygen Delivery Method Sepsis Recent Fever Within 48 Hours Sepsis New/Unexplained Change in Mental Status Sepsis Action Taken by Nursing 11/14/19 16:30 11/14/19 16:31 11/14/19 16:40 Temperature Temperature Source Pulse Rate 115 H 114 H 116 H Pulse Rate [Right Finger] Pulse Rate from SpO2 Sensor 116 H 114 H 116 H Pulse Rhythm Respiratory Rate 20 15 15 Respiratory Effort / Characteristics Respiratory Depth Respiratory Pattern Blood Pressure 133/98 Blood Pressure [Right Arm] Blood Pressure Mean 110 Blood Pressure Mean [Right Arm] Blood Pressure Position [Right Arm] Pulse Oximetry 94 95 95 Oxygen Delivery Method Sepsis Recent Fever Within 48 Hours Sepsis New/Unexplained Change in Mental Status Sepsis Action Taken by Nursing 11/14/19 16:50 11/14/19 16:55 11/14/19 17:00 Temperature Temperature Source Pulse Rate 114 H 118 H Pulse Rate [Right Finger] Pulse Rate from SpO2 Sensor 113 H 119 H Pulse Rhythm Respiratory Rate 24 16 Respiratory Effort / Characteristics Non-Labored Respiratory Depth Shallow Respiratory Pattern Regular Blood Pressure 209/128 H Blood Pressure [Right Arm] Blood Pressure Mean 161 Blood Pressure Mean [Right Arm] Blood Pressure Position [Right Arm] Pulse Oximetry 94 95 Oxygen Delivery Method Room Air Sepsis Recent Fever Within 48 Hours Sepsis New/Unexplained Change in Mental Status Sepsis Action Taken by Nursing 11/14/19 17:01 11/14/19 17:10 11/14/19 17:20 Temperature Temperature Source Pulse Rate 120 H 117 H 122 H Pulse Rate [Right Finger] Pulse Rate from SpO2 Sensor 120 H 117 H 122 H Pulse Rhythm Respiratory Rate 16 17 15 Respiratory Effort / Characteristics Respiratory Depth Respiratory Pattern Blood Pressure Blood Pressure [Right Arm] Blood Pressure Mean Blood Pressure Mean [Right Arm] Blood Pressure Position [Right Arm] Pulse Oximetry 96 94 95 Oxygen Delivery Method Sepsis Recent Fever Within 48 Hours Sepsis New/Unexplained Change in Mental Status Sepsis Action Taken by Nursing 11/14/19 17:30 11/14/19 17:40 11/14/19 17:50 Temperature Temperature Source Pulse Rate 116 H 113 H 114 H Pulse Rate [Right Finger] Pulse Rate from SpO2 Sensor 97 H 113 H 114 H Pulse Rhythm Respiratory Rate 19 15 20 Respiratory Effort / Characteristics Respiratory Depth Respiratory Pattern Blood Pressure Blood Pressure [Right Arm] Blood Pressure Mean Blood Pressure Mean [Right Arm] Blood Pressure Position [Right Arm] Pulse Oximetry 76 L 93 94 Oxygen Delivery Method Sepsis Recent Fever Within 48 Hours Sepsis New/Unexplained Change in Mental Status Sepsis Action Taken by Nursing 11/14/19 18:00 11/14/19 18:01 11/14/19 18:10 Temperature Temperature Source Pulse Rate 110 H 111 H 109 H Pulse Rate [Right Finger] Pulse Rate from SpO2 Sensor 111 H 114 H 110 H Pulse Rhythm Respiratory Rate 13 24 15 Respiratory Effort / Characteristics Respiratory Depth Respiratory Pattern Blood Pressure 158/136 H Blood Pressure [Right Arm] Blood Pressure Mean 140 Blood Pressure Mean [Right Arm] Blood Pressure Position [Right Arm] Pulse Oximetry 95 88 L 95 Oxygen Delivery Method Sepsis Recent Fever Within 48 Hours Sepsis New/Unexplained Change in Mental Status Sepsis Action Taken by Nursing 11/14/19 18:20 11/14/19 18:27 Temperature Temperature Source Pulse Rate 118 H 108 H Pulse Rate [Right Finger] Pulse Rate from SpO2 Sensor 119 H Pulse Rhythm Respiratory Rate 23 22 Respiratory Effort / Characteristics Respiratory Depth Respiratory Pattern Blood Pressure 148/101 H Blood Pressure [Right Arm] Blood Pressure Mean Blood Pressure Mean [Right Arm] Blood Pressure Position [Right Arm] Pulse Oximetry 98 96 Oxygen Delivery Method Room Air Sepsis Recent Fever Within 48 Hours Sepsis New/Unexplained Change in Mental Status Sepsis Action Taken by Nursing GENERAL: Mildly ill in appearance, NAD, non-toxic. EYE EXAM: Normal conjunctiva. PERRL, no anisocoria and EOM's grossly intact w/o pain. OROPHARYNX: Dry mucus membranes. Grossly normal dentition. NECK: Supple, no nuchal rigidity, no adenopathy, non-tender. no signs of meningismus. LUNGS: Coarse breath sounds in the right chest. The left chest is clear. No wheezes. Normal chest wall mechanics. HEART: Tachycardic and regular, no MRG. ABDOMEN: Abdomen soft, non-tender, normo-active bowel sounds, no masses, no rebound or guarding. BACK: No CVA TTP. SKIN: No rashes and no bruising. UPPER EXTREMITIES: Upper extremities have contractors and grossly normal. LOWER EXTREMITIES: No pitting edema. No calf pain. Severe weakness to the bilateral lower extremities. NEURO EXAM: Awake alert, follows basic commands, limited mobility of lower extremities. Patient is able to move upper extremities. Patient is able to verbalize yes and no. Course Course 1412: The patient was evaluated in room B04B. A complete history and physical exam was performed. 1654: Upon reevaluation, the patient is resting comfortably. I discussed laboratory and radiographic results with the patient. She verbalized agreement of the treatment plan. The patient will be evaluated for further management and care. 1656: I reviewed the patient's case with Dr. Lopez, [facility] Hospitalist. She will evaluate the patient for further management. Administered Medications Discontinued Medications Acetaminophen (Tylenol) 650 mg PO NOW STA Stop: 11/14/19 14:19 Last Admin: 11/14/19 15:37 Dose: 650 mg Documented by: [id number] Sodium Chloride (Nss 1000ml) 1,000 mls @ 999 mls/hr IV .Q1H1M ONE Stop: 11/14/19 15:18 Last Admin: 11/14/19 15:38 Dose: 999 mls/hr Documented by: [id number] Sodium Chloride (Nss 1000ml) 1,000 mls @ 999 mls/hr IV .Q1H1M ONE Stop: 11/14/19 15:18 Last Admin: 11/14/19 17:32 Dose: 999 mls/hr Documented by: [id number] Clindamycin Phosphate (Cleocin) 600 mg in 54 mls @ 100 mls/hr IV ONE ONE Stop: 11/14/19 17:28 Last Admin: 11/14/19 17:20 Dose: 100 mls/hr Documented by: [id number] Oseltamivir Phosphate (Tamiflu) 75 mg PO NOW STA; Protocol Stop: 11/14/19 15:40 Last Admin: 11/14/19 15:53 Dose: 75 mg Documented by: [id number] Medical Decision Making Differential Diagnosis Differential diagnosis: Etiologies such as viral syndrome, otitis, pharyngitis, pneumonia, influenza, meningitis, urinary tract infection, sepsis, bacteremia, as well as others were entertained. Medical Records Attestation: I reviewed the patient's medical records. Home Medications Current Medication List: was personally reviewed by me Laboratory Data Attestation: I reviewed the patient's lab results. Result diagrams: 11/14/19 14:23 11/14/19 14:23 Lab Results 11/14/19 11/14/19 11/14/19 Range/Units 14:20 14:23 14:23 WBC 9.52 (4.8-10.8) K/uL RBC 4.35 (4.2-5.4) M/uL Hgb 14.1 (12.0-16.0) g/dL Hct 41.7 (37-47) % MCV 95.9 (80-100) fL MCH 32.4 (25-34) pg MCHC 33.8 (32-36) g/dL RDW Std Deviation 50.2 H (36.4-46.3) fL RDW Coeff of Christopher 14.2 (11.5-14.5) % Plt Count 198 (130-400) K/uL MPV 10.9 H (7.4-10.4) fL Immature Gran % (Auto) 0.7 % Neut % (Auto) 65.4 % Lymph % (Auto) 18.0 % [place] % (Auto) 15.4 % Eos % (Auto) 0.3 % Baso % (Auto) 0.2 % Immature Gran # (Auto) 0.07 H (0.00-0.02) K/uL Neut # (Auto) 6.22 (1.4-6.5) K/uL Lymph # (Auto) 1.71 (1.2-3.4) K/uL [place] # (Auto) 1.47 H (0.11-0.59) K/uL Eos # (Auto) 0.03 (0-0.5) K/uL Baso # (Auto) 0.02 (0-0.2) K/uL PT 10.2 (9.0-12.0) Seconds INR 1.0 (0.9-1.1) APTT 24.6 (21.0-31.0) Seconds PTT Ratio 0.9 Sodium (136-145) mmol/L Potassium (3.5-5.1) mmol/L Chloride (98-107) mmol/L Carbon Dioxide (21-32) mmol/L Anion Gap (3-11) BUN (7-18) mg/dl Creatinine (0.6-1.2) mg/dl Est Cr Clr Drug Dosing ml/min Est GFR ( Amer) Est GFR (Non-Af Amer) BUN/Creatinine Ratio (10-20) Glucose (70-99) mg/dl Lactate Calcium (8.5-10.1) mg/dl Magnesium (1.8-2.4) mg/dl Total Bilirubin (0.2-1) mg/dl AST (15-37) U/L ALT (12-78) U/L Alkaline Phosphatase (45-117) U/L Total Protein (6.4-8.2) gm/dl Albumin (3.4-5.0) gm/dl Globulin (2.5-4.0) gm/dl Albumin/Globulin Ratio (0.9-2) Procalcitonin (0-0.5) ng/ml Influenza Type A (PCR) Neg for Influ A (Neg) Influenza Type B (PCR) Pos for Influ B A* (Neg) 11/14/19 11/14/19 11/14/19 Range/Units 14:23 14:23 14:23 WBC (4.8-10.8) K/uL RBC (4.2-5.4) M/uL Hgb (12.0-16.0) g/dL Hct (37-47) % MCV (80-100) fL MCH (25-34) pg MCHC (32-36) g/dL RDW Std Deviation (36.4-46.3) fL RDW Coeff of Christopher (11.5-14.5) % Plt Count (130-400) K/uL MPV (7.4-10.4) fL Immature Gran % (Auto) % Neut % (Auto) % Lymph % (Auto) % [place] % (Auto) % Eos % (Auto) % Baso % (Auto) % Immature Gran # (Auto) (0.00-0.02) K/uL Neut # (Auto) (1.4-6.5) K/uL Lymph # (Auto) (1.2-3.4) K/uL [place] # (Auto) (0.11-0.59) K/uL Eos # (Auto) (0-0.5) K/uL Baso # (Auto) (0-0.2) K/uL PT (9.0-12.0) Seconds INR (0.9-1.1) APTT (21.0-31.0) Seconds PTT Ratio Sodium 135 L (136-145) mmol/L Potassium 4.1 (3.5-5.1) mmol/L Chloride 103 (98-107) mmol/L Carbon Dioxide 24 (21-32) mmol/L Anion Gap 8.0 (3-11) BUN 11 (7-18) mg/dl Creatinine 0.49 L (0.6-1.2) mg/dl Est Cr Clr Drug Dosing 102.6 ml/min Est GFR ( Amer) 127.1 Est GFR (Non-Af Amer) 109.7 BUN/Creatinine Ratio 22.0 H (10-20) Glucose 128 H (70-99) mg/dl Lactate Cancelled Calcium 9.5 (8.5-10.1) mg/dl Magnesium 1.8 (1.8-2.4) mg/dl Total Bilirubin 0.2 (0.2-1) mg/dl AST 61 H (15-37) U/L ALT 41 (12-78) U/L Alkaline Phosphatase 86 (45-117) U/L Total Protein 7.8 (6.4-8.2) gm/dl Albumin 3.3 L (3.4-5.0) gm/dl Globulin 4.5 H (2.5-4.0) gm/dl Albumin/Globulin Ratio 0.7 L (0.9-2) Procalcitonin 0.08 (0-0.5) ng/ml Influenza Type A (PCR) (Neg) Influenza Type B (PCR) (Neg) 11/14/19 Range/Units 16:35 WBC (4.8-10.8) K/uL RBC (4.2-5.4) M/uL Hgb (12.0-16.0) g/dL Hct (37-47) % MCV (80-100) fL MCH (25-34) pg MCHC (32-36) g/dL RDW Std Deviation (36.4-46.3) fL RDW Coeff of Chirstopher (11.5-14.5) % Plt Count (130-400) K/uL MPV (7.4-10.4) fL Immature Gran % (Auto) % Neut % (Auto) % Lymph % (Auto) % [place] % (Auto) % Eos % (Auto) % Baso % (Auto) % Immature Gran # (Auto) (0.00-0.02) K/uL Neut # (Auto) (1.4-6.5) K/uL Lymph # (Auto) (1.2-3.4) K/uL [place] # (Auto) (0.11-0.59) K/uL Eos # (Auto) (0-0.5) K/uL Baso # (Auto) (0-0.2) K/uL PT (9.0-12.0) Seconds INR (0.9-1.1) APTT (21.0-31.0) Seconds PTT Ratio Sodium (136-145) mmol/L Potassium (3.5-5.1) mmol/L Chloride (98-107) mmol/L Carbon Dioxide (21-32) mmol/L Anion Gap (3-11) BUN (7-18) mg/dl Creatinine (0.6-1.2) mg/dl Est Cr Clr Drug Dosing ml/min Est GFR ( Amer) Est GFR (Non-Af Amer) BUN/Creatinine Ratio (10-20) Glucose (70-99) mg/dl Lactate 1.6 Calcium (8.5-10.1) mg/dl Magnesium (1.8-2.4) mg/dl Total Bilirubin (0.2-1) mg/dl AST (15-37) U/L ALT (12-78) U/L Alkaline Phosphatase (45-117) U/L Total Protein (6.4-8.2) gm/dl Albumin (3.4-5.0) gm/dl Globulin (2.5-4.0) gm/dl Albumin/Globulin Ratio (0.9-2) Procalcitonin (0-0.5) ng/ml Influenza Type A (PCR) (Neg) Influenza Type B (PCR) (Neg) Imaging Data Radiologist's Impression: Radiology results as stated below per my review and the radiologist's interpretation: XR chest 1V portable HISTORY: 54 years-old Female SEPSIS acute sepsis COMPARISON: Chest radiograph 09/03/2019 TECHNIQUE: Portable AP view of the chest FINDINGS: Cardiac silhouette is mildly enlarged, unchanged. Lung volumes with bronchovascular crowding. Chronic deformity of the right upper chest. Patient is again side bent and rotated. No pneumothorax, pleural effusion, overt pulmonary edema or airspace consolidation typical for pneumonia. Mild chronic interstitial coarsening of the lung bases. Minimal right perihilar and right lung base linear opacities. Bones appear grossly intact. IMPRESSION: 1. Hypoinflation with bronchovascular crowding. 2. Unchanged mild linear right perihilar and right lung base opacities suggestive of atelectasis. ACT 112: Negative or not required by law. The above report was generated using voice recognition software. It may contain grammatical, syntax or spelling errors. Electronically signed by: Barrington Wick M.D. 11/14/2019 4:28 PM ECG Data Attestation: I personally reviewed and interpreted this ECG as follows: Indication: + other (sepsis) Rate (beats per minute): 128 Rhythm: + sinus tachycardia ECG Intervals/blocks: + Normal QRS, + Normal QT, + Normal [place] and + Normal QT-c ECG [place]: + Normal ECG ST segments: no ST depression and no ST elevation ECG Findings: + Other (Lot of motion artifact in the inferior leads) Blood Pressure Blood Pressure Findings: Elevated blood pressure Blood Pressure Disposition: further management by hospitalist MDM Narrative The patient is a 54 y/o white female w/ PMHx pneumonia, sepsis, MR, cerebral palsy, dysphasia, influenza who presents to the ED w/ CC of a worsening cough beginning a week ago. Cardiac monitoring: An order was placed for continuous cardiac monitoring. The monitor shows a rate of 127 with sinus rhythm. Patient was seen and evaluated at the bedside. The patient is presenting for stroke refills due to concern of fever as well as the possibility of aspiration as the patient does have a prior history of aspiration pneumonia. The patient does take everything by mouth. Patient does have a known history of cerebral palsy. The patient did have reported fever. Patient does have some coarse breath sounds on the right chest. The patient did a blood work was given IV fluids. Patient has a normal white count and H&H but given the patient's breath sounds history of CP and aspiration antibiotics were ordered in addition to the additional IV fluids. The patient was flu positive was given Tamiflu. Given the patient's somewhat restrictive ability to care for self and the fact that [facility] may not be able to care for her appropriately given her acute illness I did recommend that the patient stay. The patient was ordered antibiotics and subsequently admitted to the medicine service. Impression & Plan Aspiration pneumonia, Influenza B, Dehydration Discharge Plan Visit Data Chief Complaint: Respiratory Problems Stated Complaint: aspirated, fluid/food ED Provider: Abiodun Nguyen Discharge Problem: Aspiration pneumonia, Influenza B, Dehydration Patient Disposition: Being Evaluated by Hospitalist Discharge Instructions Interventions: ED Discharge Assessment Last Done: 11/14/19 18:27 Forms Stand Alone Forms: My [facility] Prescriptions Prescriptions: No Action quetiapine 25 mg tablet 25 mg PO QAM RF: 0 docusate calcium 240 mg Capsule 240 mg PO DAILY@1600,2000 RF: 0 quetiapine 200 mg tablet 200 mg PO HS RF: 0 fexofenadine [Jayleen Allergy] 180 mg Tablet 180 mg PO QAM RF: 0 omeprazole 40 mg capsule,delayed release(DR/EC) 40 mg PO BID RF: 0 baclofen 20 mg tablet 20 mg PO TID RF: 0 baclofen 10 mg tablet 5 mg PO TID RF: 0 divalproex 500 mg tablet extended release 24 hr 1,000 mg PO HS RF: 0 divalproex 500 mg tablet extended release 24 hr 500 mg PO QAM RF: 0 metronidazole 0.75 % cream 1 applic TOPICAL BID RF: 0 carbamide peroxide [Debrox] 6.5 % Drops 5 - 10 drp OTIC (EAR) MO RF: 0 polyethylene glycol 3350 17 gram/dose powder 17 g PO QAM RF: 0 paroxetine HCl 40 mg tablet 40 mg PO QAM RF: 0 ketoconazole 2 % cream 1 applic TOPICAL BID PRN (Reason: Skin Irritation) RF: 0 fluticasone propionate 50 mcg/actuation spray,suspension 2 spray INTRANASAL QAM RF: 0 hydroxyzine pamoate 25 mg capsule 25 mg PO TID RF: 0 quetiapine 50 mg tablet 50 mg PO DAILY@1400 RF: 0 vitamin B comp and C no.3 10-86-09-5-300 mg Capsule 1 cap PO QAM RF: 0 Referrals Referrals: Leighann Palumbo DO [Primary Care Provider] - Discharge Problem: Aspiration pneumonia Qualifiers: Aspiration pneumonia type: unspecified Laterality: right Lung location: unspecified part of lung Qualified Code(s): J69.0 - Pneumonitis due to inhalation of food and vomit The scribe's documentation has been prepared under my direction and personally reviewed by me in its entirety. I confirm that the note above accurately reflects all work, treatment, procedures, and medical decision making performed by me.
[2019-11-14] MEDS ORDERED: KETOCONAZOLE 2% CR 15 GM TUBE EXT PRN (19:05)
[2019-11-14] MEDS ORDERED: ACETAMINOPHEN 325 MG TAB PO PRN (19:05)
[2019-11-14] MEDS ORDERED: GUAIFENESIN/CODEINE 200MG/20MG 10ML UDC PO PRN (19:05)
[2019-11-14] MEDS ORDERED: POLYETHYLENE (MIRALAX) 17 GM PACK PO PRN (19:05)
[2019-11-14] MEDS ORDERED: ONDANSETRON INJ 2 MG/ML 2 ML VIAL IV PRN (19:05)
[2019-11-14] MEDS ORDERED: MAGNESIUM HYDROXIDE SUSP 30 ML UDC PO PRN (19:05)
[2019-11-14] MEDS ORDERED: XOPENEX/ATROVENT 0.63mg/0.5MG NEB COMBO NEB SCH (19:05)
[2019-11-14] MEDS ORDERED: ALUMINUM/MAGNESIUM SUSP 30 ML UDC PO PRN (19:05)
[2019-11-14 19:29] LABS: Thyroid Stimulating Hormone 8.16 uIu/ml (0.300-4.500)
[2019-11-14] MEDS: LEVALBUTEROL HCL 0.63 MG/3 ML NEB NEB SCH (19:53)
[2019-11-14] MEDS: IPRATROPIUM BROMIDE NEB SOLN 0.02% 2.5 ML VIAL INH SCH (19:53)
[2019-11-14] MEDS ORDERED: SODIUM CHLORIDE 0.9% 1000ML 1,000 ML IV SCH (20:00)
[2019-11-14] MEDS: DOXYCYCLINE HYCLATE 100 MG in DEXTROSE 5% 100 ML IV SCH (21:04)
[2019-11-14] MEDS: methylPREDNISolone 40 MG in SYRINGE 0 ML IV SCH (21:11)
[2019-11-14] MEDS: BACLOFEN 10 MG TAB PO SCH ×2 (21:15→21:31)
[2019-11-14] MEDS: DIVALPROEX EXTENDED RELEASE 500 MG TAB PO SCH ×2 (21:15→21:31)
[2019-11-14] MEDS: PANTOprazole 40 MG TAB PO SCH ×2 (21:15→21:31)
[2019-11-14] MEDS: DOCUSATE CALCIUM 240 MG CAPSULE PO SCH ×2 (21:15→21:31)
[2019-11-14] MEDS: BACLOFEN 20 MG TAB PO SCH ×2 (21:15→21:31)
[2019-11-14] MEDS: OSELTAMIVIR PHOSPHATE 75 MG CAP PO SCH ×2 (21:16→21:31)
[2019-11-14] MEDS: QUETIAPINE FUMARATE 200 MG TAB PO SCH ×2 (21:16→21:31)
[2019-11-15] MEDS: LEVALBUTEROL HCL 0.63 MG/3 ML NEB NEB SCH ×4 (01:21→19:05)
[2019-11-15] MEDS: IPRATROPIUM BROMIDE NEB SOLN 0.02% 2.5 ML VIAL INH SCH ×4 (01:21→19:05)
[2019-11-15] MEDS: CLINDAMYCIN 600 MG in DEXTROSE 5% 50 ML IV SCH ×3 (01:41→17:33)
[2019-11-15 05:26] LABS: Basophils # (auto) 0.01 K/uL (0-0.2); Basophils % (auto) 0.2 %; Eosinophils # (auto) 0.01 K/uL (0-0.5); Eosinophils % (auto) 0.2 %; Hematocrit (blood only) 35.1 % (37-47); Hemoglobin 11.8 g/dL (12.0-16.0); Immature Granulocytes # (auto) 0.03 K/uL (0.00-0.02); Immature Granulocytes % (auto) 0.6 %; Lymphocytes # (auto) 1.55 K/uL (1.2-3.4); Lymphocytes % (auto) 32.5 %; Mean Corpuscular Hemoglobin 32.4 pg (25-34); Mean Corpuscular Hgb Conc 33.6 g/dL (32-36); Mean Corpuscular Volume 96.4 fL (80-100); Mean Platelet Volume 10.9 fL (7.4-10.4); Monocytes % (auto) 16.8 %; Neutrophils # (auto) 2.37 K/uL (1.4-6.5); Neutrophils % (auto) 49.7 %; Platelet Count 133 K/uL (130-400); RDW Coefficient of Variation 14.4 % (11.5-14.5); RDW Standard Deviation 51.2 fL (36.4-46.3); Red Blood Count 3.64 M/uL (4.2-5.4); White Blood Count 4.77 K/uL (4.8-10.8)
[2019-11-15 05:58] LABS: Alanine Aminotransferase 41 U/L (12-78); Albumin Level 2.7 gm/dl (3.4-5.0); Aspartate Aminotransferase 62 U/L (15-37); BUN Creatinine Ratio 24.1 (10-20); Blood Urea Nitrogen 6 mg/dl (7-18); Calcium 8.1 mg/dl (8.5-10.1); Carbon Dioxide 26 mmol/L (21-32); Chloride 110 mmol/L (98-107); Creatinine Clr Calc Pharmacy 209.5 ml/min; Est GFR (African American) > 150.0; Est GFR (Non-African American) 138.7; Glucose 86 mg/dl (70-99); Magnesium 1.7 mg/dl (1.8-2.4); Potassium 3.3 mmol/L (3.5-5.1); Sodium 140 mmol/L (136-145)
[2019-11-15 05:59] LABS: Albumin Globulin Ratio 0.8 (0.9-2); Alkaline Phosphatase 67 U/L (45-117); Bilirubin,Total 0.2 mg/dl (0.2-1); Globulin 3.5 gm/dl (2.5-4.0); Total Protein 6.2 gm/dl (6.4-8.2)
[2019-11-15] MEDS: methylPREDNISolone 40 MG in SYRINGE 0 ML IV SCH ×2 (08:32→19:32)
[2019-11-15] MEDS: DOXYCYCLINE HYCLATE 100 MG in DEXTROSE 5% 100 ML IV SCH ×2 (08:33→19:36)
[2019-11-15] MEDS ORDERED: VITAMIN B COMP AND C NO 3 PO SCH (09:00)
--- NOTE | 2019-11-15 10:46 | Hospitalist Progress Note ---
Date of Service November 15, 2019 Assessment & Plan (1) Aspiration pneumonia: Patient is a 54 year old female with PMHx Cerebral palsy, aspiration pneumonia, dysphasia who presented initially from [facility] with her or first assist registered nurse who stated that the patient was not feeling well and had not been eating or drinking normally. They had concerns that the patient may be dehydrated. Also of note, patient was stated to have seen their PCP 1 week ago and was found to have a worsening cough that they had been prescribed mucinex. 1) Aspiration Pneumonia -Patient had recently recovered from aspiration pneumonia -Well known to Speech Therapy, states that a majority of patient's aspirations come from regurgitation -Due to Amoxicillin allergy, was started on Clindamycin 600mg IV q8h and Doxycycline 100mg IV BID -CXR showed hypoinflation of the lungs with bronchovascular crowding and an unchanged mild perihilar R lung base atelectasis -Atrovent q6h PRN and Xopenex q6h sched -Solumedrol 40mg IV BID -Robitussin 10ml PO PRN cough -Will get a repeat CXR in the AM and compare -While patient's risk of aspiration pna is there, current imaging and labs are not as convincing -Pending morning CXR and cultures may be able to de-escalate abx therapy to just Doxycycline. 2) Influenza B -Continue Tamiflu 75mg PO BID 3) Dehydration -Received 2L bolus's of NSS in the ED -Will continue gentle hydration with NSS 80ml/hr as patient comes around to increasing PO 4) High TSH -Found to be 8.160 on admission with T4 0.88. -Upon review of outside records last TSH was roughly 2.2 years ago at 3.85. -Patient does not appear to have ever been on thyroid replacement therapy. -Although increased TSH may be secondary to current illness, such an increase will likely require further investigation and possible replacement therapy. 5) Cerebral Palsy -Stable at this point -Continue home medications -Seroquel 25mg PO qAM, 50mg PO QD, 200mg PO qhs -Hydroxyzine 25mg PO TID -Paroxetine 40mg PO qAM -Divalproex 1000mg PO qhs and 500mg po qAM -Baclofen 20mg PO TID, 5mg PO TID 6) Constipation -Continue home Miralax 17mg PO qAM and QD PRN constipation FEN/GI: Regular Pureed DVT: SCDs Code: Full Dispo: PCU Tele (2) Influenza B: (3) Dehydration: (4) Cerebral palsy: (5) Mental retardation: (6) Constipation: (7) High thyroid stimulating hormone (TSH) level: Admission and Anticipated Discharge Date Admission Date: November 14, 2019 Supervising Physician Co-Signing Physician Notes I saw the patient the resident physician and confirmed toth portions the history and physical examination. Beulah seems to be more back to her baseline; both from what I recall in seeing her in the office as well as the opinion of the or first assist registered nurse who is with her today. Blood pressure 159/107, , heart rate 112, respiratory rate 20, temperature 36.2 C Pulse oximetry 96% on room air White blood cell count 4.77, hemoglobin 11.8 Potassium 3.3; BUN 6, creatinine 0.24. Chest x-ray does not show an infiltrate Influenza B History of aspiration pneumonia, although no convincing signs of current Continue Tamiflu Consider de-escalation of antibiotics once cultures are resulted Subjective Patient evaluated at the bedside this morning. While patient is non-verbal, her or first assist registered nurse and another or first assist registered nurse from [facility] was present to speak on patient's behalf. Both caretakers noted that the patient appeared markedly improved and relatively at her baseline. They note that roughly 10 days ago she had presented to her PCP with a cough and that was being treated with mucinex. On day of admission, she was noted to be acting not quite herself and was not taking in PO well which prompted her trip to the ED. Review of Systems Review of Systems: Other Unable to obtain a true ROS as patient is non- verbal. Per patient's or first assist registered nurse she appears overall improved. Physical Exam Constitutional: WD/WN, vitals as above + language barrier; no acute distress Eyes: PERRL, conjunctivae normal, anicteric sclerae Neck: normal visual inspection Respiratory: normal respiratory effort; no labored breathing, no retractions and does not use accessory muscles Auscultation: + diminished lung sounds (sl ightly diminished in lower RL field ) and + rales (minimal in the RLL ) Cardiovascular: Rate/Rhythm: regular rate and regular rhythm Heart Sounds: normal S1 and normal S2 Vessels: normal peripheral pulses Gastrointestinal (Abdomen): normal bowel sounds, soft, nontender, no hepatosplenomegaly Musculoskeletal: Head/Neck/Chest: head atraumatic and + limited ROM of neck (while able to turn to the left, appears to be primarily righward leaning) Extremities: + limited ROM of extremities Skin: no rashes, warm and dry Results & Data ([facility]) Vital Signs (Past 12 Hours) Vital Signs Temp Pulse Pulse Resp BP BP Pulse Ox 11/15/19 07:50 36.8 C 107 H 22 163/124 H 98 11/15/19 07:37 98 H 20 99 11/15/19 04:10 36.8 C 94 H 18 140/108 H 98 11/15/19 01:21 100 H 16 94 11/15/19 00:21 91 H 11/14/19 23:26 36.7 C 96 H 17 152/103 H 96 Laboratory Results Abnormal lab results 11/14/19 11/15/19 11/15/19 Range/Units 14:23 05:10 05:10 WBC 4.77 L (4.8-10.8) K/uL RBC 3.64 L (4.2-5.4) M/uL Hgb 11.8 L (12.0-16.0) g/dL Hct 35.1 L (37-47) % RDW Std Deviation 51.2 H (36.4-46.3) fL MPV 10.9 H (7.4-10.4) fL Immature Gran # (Auto) 0.03 H (0.00-0.02) K/uL [place] # (Auto) 0.80 H (0.11-0.59) K/uL Potassium 3.3 L D (3.5-5.1) mmol/L Chloride 110 H (98-107) mmol/L BUN 6 L D (7-18) mg/dl Creatinine 0.24 L (0.6-1.2) mg/dl BUN/Creatinine Ratio 24.1 H (10-20) Calcium 8.1 L (8.5-10.1) mg/dl Magnesium 1.7 L (1.8-2.4) mg/dl AST 62 H (15-37) U/L Total Protein 6.2 L D (6.4-8.2) gm/dl Albumin 2.7 L (3.4-5.0) gm/dl Albumin/Globulin Ratio 0.8 L (0.9-2) TSH 8.160 H (0.300-4.500) uIu/ml Urine Ketones (Negative) 11/15/19 Range/Units 10:20 WBC (4.8-10.8) K/uL RBC (4.2-5.4) M/uL Hgb (12.0-16.0) g/dL Hct (37-47) % RDW Std Deviation (36.4-46.3) fL MPV (7.4-10.4) fL Immature Gran # (Auto) (0.00-0.02) K/uL [place] # (Auto) (0.11-0.59) K/uL Potassium (3.5-5.1) mmol/L Chloride (98-107) mmol/L BUN (7-18) mg/dl Creatinine (0.6-1.2) mg/dl BUN/Creatinine Ratio (10-20) Calcium (8.5-10.1) mg/dl Magnesium (1.8-2.4) mg/dl AST (15-37) U/L Total Protein (6.4-8.2) gm/dl Albumin (3.4-5.0) gm/dl Albumin/Globulin Ratio (0.9-2) TSH (0.300-4.500) uIu/ml Urine Ketones Trace H (Negative) Resident Activity Tracking Resident Involvement: Resident Care Provided Care Provided: Adult Hospital Medicine (1) Aspiration pneumonia Aspiration pneumonia type: unspecified Laterality: right Lung location: unspecified part of lung Qualified Code(s): J69.0 - Pneumonitis due to inhalation of food and vomit
[2019-11-15 11:18] LABS: Appearance Urine Clear (Clear); Bilirubin Urine Negative (Negative); Blood Urine Negative (Negative); Color Urine Yellow; Glucose Urine UA Negative (Negative); Ketones Urine Trace (Negative); Leukocyte Esterase Urine Negative (Negative); Nitrite Urine Negative (Negative); Protein Urine Negative (Negative); Specific Gravity Urine 1.011 (1.000-1.030); Urobilinogen Urine Negative (Negative); pH Urine 7.5 (4.5-7.5)
[2019-11-15] MEDS: FLUTICASONE PROPIONATE NA SPR 16 GM BTL NAE SCH (11:48)
[2019-11-15] MEDS: BACLOFEN 20 MG TAB PO SCH ×3 (11:48→19:36)
[2019-11-15] MEDS: DIVALPROEX EXTENDED RELEASE 500 MG TAB PO SCH ×3 (11:48→19:33)
[2019-11-15] MEDS: FEXOFENADINE HCL 180 MG TAB PO SCH (11:48)
[2019-11-15] MEDS: OSELTAMIVIR PHOSPHATE 75 MG CAP PO SCH ×2 (11:49→19:35)
[2019-11-15] MEDS: BACLOFEN 10 MG TAB PO SCH ×3 (11:49→19:36)
[2019-11-15] MEDS: PANTOprazole 40 MG TAB PO SCH ×2 (11:49→19:35)
[2019-11-15] MEDS: PARoxetine HCl 20 MG TAB PO SCH (11:49)
[2019-11-15] MEDS: POLYETHYLENE (MIRALAX) 17 GM PACK PO SCH (11:49)
[2019-11-15] MEDS: QUETIAPINE FUMARATE 25 MG TABLET PO SCH (12:11)
--- NOTE | 2019-11-15 12:31 | Electrocardiogram Report ---
Test Reason : Blood Pressure : / mmHG Vent. Rate : 128 BPM Atrial Rate : 128 BPM P-R Int : 152 ms QRS Dur : 062 ms QT Int : 378 ms P-R-T Axes : 043 084 049 degrees QTc Int : 551 ms Sinus tachycardia Nonspecific ST and T wave abnormality Abnormal ECG When compared with ECG of 25-DEC-2017 23:41, T wave inversion now evident in Anterior leads Confirmed by Dayo Yuen ([id number]) on 11/15/2019 12:31:03 PM Referred By: REFERRED SELF Confirmed By:Dayo Yuen
[2019-11-15] MEDS ORDERED: QUETIAPINE FUMARATE 25 MG TABLET PO SCH (14:00)
[2019-11-15] MEDS: DOCUSATE CALCIUM 240 MG CAPSULE PO SCH ×2 (16:32→19:32)
[2019-11-15] MEDS: QUETIAPINE FUMARATE 200 MG TAB PO SCH (19:35)
[2019-11-16] MEDS: LEVALBUTEROL HCL 0.63 MG/3 ML NEB NEB SCH ×2 (00:46→07:25)
[2019-11-16] MEDS: IPRATROPIUM BROMIDE NEB SOLN 0.02% 2.5 ML VIAL INH SCH ×2 (00:46→07:26)
[2019-11-16] MEDS: CLINDAMYCIN 600 MG in DEXTROSE 5% 50 ML IV SCH (01:16)
--- NOTE | 2019-11-16 07:14 | Hospitalist Progress Note ---
Date of Service November 16, 2019 Assessment & Plan (1) Aspiration pneumonia: Patient is a 54 year old female with PMHx Cerebral palsy, aspiration pneumonia, dysphasia who presented initially from [facility] with her guide cruise who stated that the patient was not feeling well and had not been eating or drinking normally. They had concerns that the patient may be dehydrated. Also of note, patient was stated to have seen their PCP 1 week ago and was found to have a worsening cough that they had been prescribed mucinex. 1) Aspiration Pneumonia - received 4 doses IV Clindamycin 600mg, 4 doses Doxycycline 100 mg IV for Aspiration pneumonia coverage in the setting of penicillin allergy - Given lack of WBC count, afebrile status, improving clinical condition and improving CXR, patient more likely to have aspiration pneumonitis than pneumonia - will D/C doxy and discharge pt on 150 mg Clinda Q6H x 6 days to finish coverage given high risk for aspiration event - prednisone converted to multi-day oral taper - continue thick liquid diet on discharge per MILITARY ANALYST - patient more likely to acquire illness with extended hospital stay in light of speedy recovery 2) Influenza B -Continue Tamiflu 75mg PO BID 3) Dehydration - considerably more hydrated, tolerating fluids and medications PO 4) High TSH -Found to be 8.160 on admission with T4 0.88. -Upon review of outside records last TSH was roughly 2.2 years ago at 3.85. -Patient does not appear to have ever been on thyroid replacement therapy. -Although increased TSH may be secondary to current illness, such an increase will likely require further investigation and possible replacement therapy. - outpatient follow up with PCP recommended to patient and caregiver 5) Cerebral Palsy + Mental Retardation -Stable at this point -Continue home medications -Seroquel 25mg PO qAM, 50mg PO QD, 200mg PO qhs -Hydroxyzine 25mg PO TID -Paroxetine 40mg PO qAM -Divalproex 1000mg PO qhs and 500mg po qAM -Baclofen 20mg PO TID, 5mg PO TID 6) Constipation -Continue home Miralax 17mg PO qAM and QD PRN constipation FEN/GI: Regular Pureed DVT: SCDs Code: Full Dispo: discharge to care home care facility (2) Influenza B: (3) Dehydration: (4) Cerebral palsy: (5) Mental retardation: (6) Constipation: (7) High thyroid stimulating hormone (TSH) level: Admission and Anticipated Discharge Date Admission Date: November 14, 2019 Supervising Physician Co-Signing Physician Notes I saw the patient the resident physician and confirmed toth portions the history and physical examination. Beulah seems to be more back to her baseline; Chest x-ray does not show an infiltrate Influenza B History of aspiration pneumonia, although no convincing signs of current Continue Tamiflu continue cipro at discharge Subjective 54 yo F with PMH cerebral palsy, mental retardation, dysphagia, constipation admitted for decreased feeding, dehydration, concerns for aspiration pneumonia. This morning remains minimally vocal, limiting ROS. Per care nurse, she seems to be better than at admission. Review of Systems Review of Systems: Unobtainable due to mental health condition Physical Exam Physical Exam: Const: sitting upright in bed, in no acute distress Card: RRR, no mrg, S1 S2 normal Pulm: CTA BL, limited exam due to patient positioning, anterior lung field clear without wheezes, rhonchi, crackles Extremities: no edema, 2+ pulses BL Abd: normal bowel sounds, nontender, nondistended Results & Data ([facility]) Vital Signs (Past 12 Hours) Vital Signs Temp Pulse Pulse Resp BP Pulse Ox 11/16/19 03:30 36.4 C L 112 H 17 115/75 94 11/16/19 00:47 89 18 97 11/15/19 23:34 36.7 C 113 H 18 102/68 97 11/15/19 23:06 103 H 11/16/19 11/16/19 Range/Units 07:37 07:37 WBC 7.57 (4.8-10.8) K/uL RBC 4.46 (4.2-5.4) M/uL Hgb 14.6 (12.0-16.0) g/dL Hct 42.7 (37-47) % MCV 95.7 (80-100) fL MCH 32.7 (25-34) pg MCHC 34.2 (32-36) g/dL RDW Std Deviation 51.3 H (36.4-46.3) fL RDW Coeff of Christopher 14.6 H (11.5-14.5) % Plt Count 175 (130-400) K/uL MPV 11.6 H (7.4-10.4) fL Immature Gran % (Auto) 0.3 % Neut % (Auto) 43.9 % Lymph % (Auto) 45.4 % Hopkins % (Auto) 10.3 % Eos % (Auto) 0.0 % Baso % (Auto) 0.1 % Immature Gran # (Auto) 0.02 (0.00-0.02) K/uL Neut # (Auto) 3.32 (1.4-6.5) K/uL Lymph # (Auto) 3.44 H (1.2-3.4) K/uL Hopkins # (Auto) 0.78 H (0.11-0.59) K/uL Eos # (Auto) 0.00 (0-0.5) K/uL Baso # (Auto) 0.01 (0-0.2) K/uL Sodium 139 (136-145) mmol/L Potassium 4.2 D (3.5-5.1) mmol/L Chloride 105 (98-107) mmol/L Carbon Dioxide 24 (21-32) mmol/L Anion Gap 10.0 (3-11) BUN 14 D (7-18) mg/dl Creatinine 0.56 L D (0.6-1.2) mg/dl Est Cr Clr Drug Dosing 89.8 ml/min Est GFR ( Amer) 121.7 Est GFR (Non-Af Amer) 105.0 BUN/Creatinine Ratio 25.0 H (10-20) Glucose 105 H (70-99) mg/dl Calcium 9.8 D (8.5-10.1) mg/dl Total Bilirubin 0.3 (0.2-1) mg/dl AST 47 H (15-37) U/L ALT 44 (12-78) U/L Alkaline Phosphatase 84 (45-117) U/L Total Protein 8.0 D (6.4-8.2) gm/dl Albumin 3.2 L (3.4-5.0) gm/dl Globulin 4.8 H (2.5-4.0) gm/dl Albumin/Globulin Ratio 0.7 L (0.9-2) Resident Activity Tracking Resident Involvement: Resident Care Provided Care Provided: Adult Hospital Medicine (1) Aspiration pneumonia Aspiration pneumonia type: unspecified Laterality: right Lung location: unspecified part of lung Qualified Code(s): J69.0 - Pneumonitis due to inhalation of food and vomit
--- NOTE | 2019-11-16 07:34 | XRay Report ---
XR chest 1V portable CLINICAL HISTORY: 54 years-old Female presenting with aspiration pneumonia. TECHNIQUE: Portable upright AP view of the chest was obtained. COMPARISON: 11/14/2019. FINDINGS: The patient is IRAQI rotated. Allowing for this, cardiac silhouette grossly normal and unchanged. Mild prominence of hilar vasculature. Mildly low lung volumes. Slightly decreased added density of the hussain tral and lower lungs in comparison to prior. Slightly improved aeration of the lung bases. No new foc al opacity. No large effusion or pneumothorax. Degenerative changes of the thoracic spine. Upper abdo men normal. IMPRESSION: 1. Mildly low lung volumes though slightly improved aeration of the lung bases are evident. 2. No new focal infiltrate. 3. Mild hilar vascular prominence. ACT 112: Negative or not required by law. Electronically signed by: Rick Andrade M.D. 11/16/2019 7:33 AM
[2019-11-16 07:50] LABS: Basophils # (auto) 0.01 K/uL (0-0.2); Basophils % (auto) 0.1 %; Hematocrit (blood only) 42.7 % (37-47); Hemoglobin 14.6 g/dL (12.0-16.0); Immature Granulocytes # (auto) 0.02 K/uL (0.00-0.02); Immature Granulocytes % (auto) 0.3 %; Lymphocytes # (auto) 3.44 K/uL (1.2-3.4); Lymphocytes % (auto) 45.4 %; Mean Corpuscular Hemoglobin 32.7 pg (25-34); Mean Corpuscular Hgb Conc 34.2 g/dL (32-36); Mean Corpuscular Volume 95.7 fL (80-100); Mean Platelet Volume 11.6 fL (7.4-10.4); Monocytes # (auto) 0.78 K/uL (0.11-0.59); Monocytes % (auto) 10.3 %; Neutrophils # (auto) 3.32 K/uL (1.4-6.5); Neutrophils % (auto) 43.9 %; Platelet Count 175 K/uL (130-400); RDW Coefficient of Variation 14.6 % (11.5-14.5); RDW Standard Deviation 51.3 fL (36.4-46.3); Red Blood Count 4.46 M/uL (4.2-5.4); White Blood Count 7.57 K/uL (4.8-10.8)
[2019-11-16 08:20] LABS: Albumin Globulin Ratio 0.7 (0.9-2); Albumin Level 3.2 gm/dl (3.4-5.0); Bilirubin,Total 0.3 mg/dl (0.2-1); Calcium 9.8 mg/dl (8.5-10.1); Creatinine Clr Calc Pharmacy 89.8 ml/min; Est GFR (African American) 121.7; Globulin 4.8 gm/dl (2.5-4.0); Potassium 4.2 mmol/L (3.5-5.1)
[2019-11-16] MEDS: QUETIAPINE FUMARATE 25 MG TABLET PO SCH (09:42)
[2019-11-16] MEDS: DIVALPROEX EXTENDED RELEASE 500 MG TAB PO SCH (09:42)
[2019-11-16] MEDS: PARoxetine HCl 20 MG TAB PO SCH (09:42)
[2019-11-16] MEDS: methylPREDNISolone 40 MG in SYRINGE 0 ML IV SCH (09:42)
[2019-11-16] MEDS: PANTOprazole 40 MG TAB PO SCH (09:43)
[2019-11-16] MEDS: BACLOFEN 10 MG TAB PO SCH (09:43)
[2019-11-16] MEDS: FEXOFENADINE HCL 180 MG TAB PO SCH (09:44)
[2019-11-16] MEDS: OSELTAMIVIR PHOSPHATE 75 MG CAP PO SCH (09:44)
[2019-11-16] MEDS: BACLOFEN 20 MG TAB PO SCH (09:44)
[2019-11-16] MEDS ORDERED: DOXYCYCLINE HYCLATE 100 MG CAP PO SCH (09:45)
[2019-11-16] MEDS: FLUTICASONE PROPIONATE NA SPR 16 GM BTL NAE SCH (09:47)
[2019-11-16] MEDS: DOXYCYCLINE HYCLATE 100 MG in DEXTROSE 5% 100 ML IV SCH (09:56)
[2019-11-16] MEDS: POLYETHYLENE (MIRALAX) 17 GM PACK PO SCH (10:13)
--- NOTE | 2019-11-16 13:37 | Discharge Summary ---
Date of Service November 16, 2019 Admission HPI Per Admitting Provider The patient is a 54 years old female with cerebral palsy, dysphasia, brought by her bar and filler assembler who states that patient is not feeling very well and has not been eating or drinking normally and she was concerned that patient is dehydrated. Patient is coming from [facility] as she is a and able only to answer yes or no. The patient was evaluated on the November 05, and had physical exam when was noted that she has productive cough. She was started at that time on Mucinex for 1 week but this did not help. Patient is unable to review systems due to cerebral palsy. Caregiver reports that she gave patient ibuprofen without much relief and that patient did not miss any of her medicines. Per pet care attendant patient did not have a sick contact. Caregiver denies fever, chills, chest pain, shortness of breath, abdominal pain, frequency, urgency as reported per caregiver.Echocardiogram reviewed and shows sinus tachycardia with ST and T wave abnormality in the inferior leads. Labs are reviewed which shows WBCs of 9.52, hemoglobin 14.1, hematocrit 41.7, platelets 198 no left shift. Sodium 135, potassium 4.1, chloride 103, carbon dioxide 24, anion gap 8, BUN 11, creatinine 1.0 49, GFR 109.7,Total bili 0.2, AST 61, ALT 41, alkaline phosphatase 86, BNP 451, albumin 3.3, globulin 4.5, procalcitonin 0.08 and TSH 8.16 with free T4 pending. Influenza B positive. Chest x-ray shows hypoinflation with bronco vascular crowding. Unchanged mild liner right perihilar and right lung base opacity suggestive of atelectasis. Decision was made to admit to PCU on telemetry for possible pneumonia and influenza B in the setting of patient being debilitated and having lifelong disability-cerebral palsy. Admission Exam Per Admitting Provider Constitutional: WD/WN, vitals as above well developed and + ill appearing Eyes: PERRL, conjunctivae normal, anicteric sclerae ENMT: Ears: + hearing impairment Neck: trachea midline, no thyromegaly Respiratory: Auscultation: + crackles, + rales and + wheezes Cardiovascular: Heart Sounds: normal S1, normal S2 and + murmur Vessels: normal peripheral pulses Gastrointestinal (Abdomen): normal bowel sounds, soft, nontender, no hepatosplenomegaly Musculoskeletal: no cyanosis or clubbing, extremities motor strength 5/5 Skin: no rashes, warm and dry Neurologic: patellar DTR's 2+ bilat, sensation intact Psychiatric: A+Ox3, euthymic affect Lymphatic: no cervical or axillary lymphadenopathy Principal Diagnosis Aspiration pneumonitis, dehydration Discharge Exam Const: sitting upright in bed, in no acute distress Card: RRR, no mrg, S1 S2 normal Pulm: CTA BL, limited exam due to patient positioning, anterior lung field clear without wheezes, rhonchi, crackles Extremities: no edema, 2+ pulses BL Abd: normal bowel sounds, nontender, nondistended Discharge Data Allergies Allergy/AdvReac Type Severity Reaction Status Date / Time amoxicillin Allergy Unknown UNKNOWN Verified 11/14/19 15:04 clavulanic acid Allergy Unknown UNKNOWN Verified 11/14/19 15:04 Consultations 11/14/19 16:56 ED Decision to Admit Stat Hospital Course (1) Aspiration pneumonia: Patient is a 54 year old female with PMHx Cerebral palsy, aspiration pneumonia, dysphasia who presented initially from [facility] with her bar and filler assembler who stated that the patient was not feeling well and had not been eating or drinking normally. They had concerns that the patient may be de hydrated. During her stay Ms. Lara was treated with IV clindamycin and IV doxycycline for empiric aspiration pneumonia coverage in the setting of a penicillin allergy. Given her clinical improvement, lack of WBC elevation, afebrile status and improving chest xray, she was transitioned to PO clindamycin for discharge and doxycycline was discontinued. She was also found to be positive for Influe nza B and starting receiving Tamiflu. By November 15 she was tolerating PO medications and taking in more fluids orally and appeared to be fit for discharge back to [facility]. Of note during her admission, she was found to have a TSH of 8.160 and a T4 of 0.88. While this may be an acute elevation in the setting of illness, we recommend follow up TSH and T4 in a month to ensure hypothyroid status is not going untreated if present. All other chronic medical conditions were controlled per home regimens. (2) Influenza B: (3) Dehydration: (4) Cerebral palsy: (5) Mental retardation: (6) Constipation: (7) High thyroid stimulating hormone (TSH) level: Total Time Total Time Spent Total Time Spent (In Minutes): Discharge Plan Discharge Items Patient Disposition: Trans Resident Long-Term [facility] Reason For Visit: FLU,PNEUMONIA Discharge Diagnosis: Aspiration pneumonitis, Flu B Activity: Resume your previous activity Non-emergency contact: Primary Care Provider Call non-emergency contact if: you have any medication questions, your symptoms worsen and you have a fever Follow-up/Referrals: Leighann Palumbo DO [Primary Care Provider] - 11/23/19 1:10 pm (Please follow up at [facility] with Dr. Griffith on SaturdayNovember 22 at 1:10 pm. Please arrive for your appointment 15 minutes early. *If you are unable to keep this appointment, please call the office to reschedule at [phone]. ) Diet: Full liquid Addtl Attending Provider Instructions: You were evaluated in the hospital for worsening dehydration and cough. You tested positive for influenza B in the hospital and started receiving tamiflu to help reduce the course of illness. Chest xrays showed a pneumonitis or inflammation of the lungs from aspiration rather than a pneumonia that requires ad terminal makeup operator antibiotic use. You should be able to complete the antibiotic regimen at home in combination with your standard home medications. While in the hospital, lab work showed that your TSH level was abnormally high while your T4 (thyroid hormone) was borderline low. This could indicate an acute imbalance due to sickness or a chronic undertreatment of abnormal thyroid function. We recommend following up with your PCP and having a TSH and T4 re-done in 3-4 weeks after discharge to evaluate if the levels are still abnormal, and change medication as appropriate at that time. You were discharged with 6 days of Clindamycin 150 mg Q6H to finish out your coverage for aspiration pneumonitis, as well as 4 days of Tamiflu twice a day to treat your influenza. Given the length of Clindamycin coverage, we recommend supplementing with Saccharomyces probiotic capsules to decrease your risk of developing C. Diff infection while on this antibiotic. If you have increasing cough or shortness of breath or worsening aspiration, call your PCP or return to the ER for evaluation. Pending Studies at Discharge: No Stand-Alone Forms: My [facility] Skilled Items Patient informed of condition?: Yes DNR: No Discharge Level of Care: Other Communicable Disease: No Discharge Prognosis: Stable Lines: None Urinary Catheter: No Medications and DC Order Prescriptions: New prednisone 10 mg tablet 10 mg PO DAILY Qty: 17 RF: 0 Continued quetiapine 25 mg tablet 25 mg PO QAM RF: 0 docusate calcium 240 mg Capsule 240 mg PO DAILY@1600,2000 RF: 0 quetiapine 200 mg tablet 200 mg PO HS RF: 0 fexofenadine [Jayleen Allergy] 180 mg Tablet 180 mg PO QAM RF: 0 omeprazole 40 mg capsule,delayed release(DR/EC) 40 mg PO BID RF: 0 baclofen 20 mg tablet 20 mg PO TID RF: 0 baclofen 10 mg tablet 5 mg PO TID RF: 0 divalproex 500 mg tablet extended release 24 hr 1,000 mg PO HS RF: 0 divalproex 500 mg tablet extended release 24 hr 500 mg PO QAM RF: 0 metronidazole 0.75 % cream 1 applic TOPICAL BID RF: 0 carbamide peroxide [Debrox] 6.5 % Drops 5 - 10 drp OTIC (EAR) MO RF: 0 polyethylene glycol 3350 17 gram/dose powder 17 g PO QAM RF: 0 paroxetine HCl 40 mg tablet 40 mg PO QAM RF: 0 ketoconazole 2 % cream 1 applic TOPICAL BID PRN (Reason: Skin Irritation) RF: 0 fluticasone propionate 50 mcg/actuation spray,suspension 2 spray INTRANASAL QAM RF: 0 hydroxyzine pamoate 25 mg capsule 25 mg PO TID RF: 0 quetiapine 50 mg tablet 50 mg PO DAILY@1400 RF: 0 vitamin B comp and C no.3 53-48-33-5-300 mg Capsule 1 cap PO QAM RF: 0 Discharge Orders: Discharge Order (Routine); Ordered 11/16/19 Ordered By: Sena Zaragoza Admission Data Admit Date/Time: 11/14/19 17:57 Attending Provider: Joe Epps Admit Provider: Margarita Angeles Primary Care Provider: Leighann Palumbo Other Providers: Nilton Hood Other Interventions: Discharge Summary Assessment (RN) Last Done: 11/16/19 11:59 DC Date/Time DO NOT enter until pt leaves facility: 11/16/19 13:46 Supervising Physician Co-Signing Physician Notes I saw the patient the resident physician and confirmed toth portions the history and physical examination. Beulah seems to be more back to her baseline; Chest x-ray does not show an infiltrate Influenza B History of aspiration pneumonia, although no convincing signs of current Continue Tamiflu continue cipro at discharge Resident Activity Tracking Resident Involvement: Resident Care Provided Care Provided: Adult Hospital Medicine
--- NOTE | 2019-11-22 23:59 | Billing Data ---
Date of Service November 16, 2019 Coding Level of Care Code D/C Day Management >30 mins
== END 2019-11-16 13:46 | DRG 178 ==
LOC: ED 14:03 → 2S 17:57 → SUATTDRO 17:57 → 2S 18:27
DX: J10.1 Influenza due to other identified influenza virus with other respiratory manifestations; Z88.0 Allergy status to penicillin; R94.6 Abnormal results of thyroid function studies; Z79.899 Other long term (current) drug therapy; G80.9 Cerebral palsy, unspecified; F72 Severe intellectual disabilities; K59.00 Constipation, unspecified; J69.0 Pneumonitis due to inhalation of food and vomit; E86.0 Dehydration

== ENCOUNTER 2020-06-28 17:04 | Observation (INO) ==
--- NOTE | 2020-06-28 17:40 | XRay Report ---
XR chest 1V portable CLINICAL HISTORY: SEPSIS COMPARISON STUDY: Chest radiograph June 24, 2020. FINDINGS: Patient is rotated. Lung volumes are mildly diminished. This is unchanged. There is no cons olidation or evidence for pulmonary edema. There is a right-sided cervical rib. Cardiomediastinal pete houette is unremarkable. IMPRESSION: No acute findings. No change in appearance of the chest. ACT 112: Negative or not required by law. Electronically signed by: Jignesh Ibrahim M.D. 06/28/2020 5:39 PM
[2020-06-28] MEDS ORDERED: SODIUM CHLORIDE 0.9% 500 ML IV ONE (18:25)
[2020-06-28] MEDS ORDERED: SODIUM CHLORIDE 0.9% 1000ML 1,000 ML IV SCH ×2 (18:30→20:45)
[2020-06-28 18:56] LABS: Appearance Urine Clear (Clear); Bacteria Urine Automated Negative (Negative); Blood Urine Negative (Negative); Color Urine Dark Yellow; Epithelial Cell Urine Auto >30 /lpf (0-5); Glucose Urine UA Negative (Negative); Ketones Urine Trace (Negative); Leukocyte Esterase Urine Trace (Negative); Nitrite Urine Positive (Negative); Protein Urine Trace (Negative); Specific Gravity Urine 1.026 (1.000-1.030); Urobilinogen Urine Negative (Negative); pH Urine 5.5 (4.5-7.5)
[2020-06-28 19:06] LABS: Bilirubin Urine 1+ (Negative); Ictotest Urine Positive (Negative)
[2020-06-28 19:09] LABS: RBC Urine Automated 0-4 /hpf (0-4)
[2020-06-28 19:47] LABS: Basophils # (auto) 0.01 K/uL (0-0.2); Basophils % (auto) 0.1 %; Eosinophils # (auto) 0.04 K/uL (0-0.5); Eosinophils % (auto) 0.3 %; Hematocrit (blood only) 38.4 % (37-47); Hemoglobin 13.2 g/dL (12.0-16.0); Immature Granulocytes # (auto) 0.05 K/uL (0.00-0.02); Immature Granulocytes % (auto) 0.4 %; Lymphocytes # (auto) 3.86 K/uL (1.2-3.4); Lymphocytes % (auto) 27.2 %; Mean Corpuscular Hemoglobin 32.6 pg (25-34); Mean Corpuscular Hgb Conc 34.4 g/dL (32-36); Mean Corpuscular Volume 94.8 fL (80-100); Mean Platelet Volume 10.7 fL (7.4-10.4); Monocytes % (auto) 7.7 %; Neutrophils # (auto) 9.14 K/uL (1.4-6.5); Neutrophils % (auto) 64.3 %; Platelet Count 153 K/uL (130-400); RDW Coefficient of Variation 14.8 % (11.5-14.5); RDW Standard Deviation 51.4 fL (36.4-46.3); Red Blood Count 4.05 M/uL (4.2-5.4)
[2020-06-28 19:57] LABS: Partial Thromboplastin Time 26.7 Seconds (21.0-31.0); Prothrombin Time 10.4 Seconds (9.0-12.0)
[2020-06-28 20:04] LABS: Alanine Aminotransferase 20 U/L (12-78); Albumin Level 2.9 gm/dl (3.4-5.0); Aspartate Aminotransferase 23 U/L (15-37); BUN Creatinine Ratio 30.7 (10-20); Blood Urea Nitrogen 29 mg/dl (7-18); Calcium 9.7 mg/dl (8.5-10.1); Carbon Dioxide 26 mmol/L (21-32); Chloride 105 mmol/L (98-107); Est GFR (African American) 79.6; Est GFR (Non-African American) 68.7; Glucose 105 mg/dl (70-99); Magnesium 2.1 mg/dl (1.8-2.4); Potassium 3.3 mmol/L (3.5-5.1); Sodium 140 mmol/L (136-145)
[2020-06-28 20:07] LABS: Albumin Globulin Ratio 0.7 (0.9-2); Alkaline Phosphatase 98 U/L (45-117); Bilirubin,Total 0.3 mg/dl (0.2-1); Globulin 4.4 gm/dl (2.5-4.0); Total Protein 7.3 gm/dl (6.4-8.2)
[2020-06-28] MEDS ORDERED: cefTRIAXone SODIUM 1,000 MG/50 ML BAG IV STA (20:11)
[2020-06-28] MEDS ORDERED: SODIUM CHLORIDE 0.9% 1000ML 500 ML IV ONE (20:33)
--- NOTE | 2020-06-28 22:34 | History & Physical Report ---
Date of Service June 28, 2020 Assessment & Plan (1) Sepsis: Sepsis/presumed urinary tract infection/febrile illness/dehydration/tachycardia/neutrophilic leukocytosis- Discontinue Bactrim begun yesterday. Place on ceftriaxone 1 g IV daily Follow urine culture and sensitivity NSS + KCl 20 mEq at 100 mils per hour Acetaminophen 650 mg p.o. every 6 hours as needed mild pain or temperature Her fork lift technician will stay with her this evening Present on Admission?: Yes (2) Urinary tract infection: As noted above Present on Admission?: Yes (3) Febrile illness: As noted above. Patient does have a history of aspiration, but this does not appear to be a contributing cause to her fever at this time Present on Admission?: Yes (4) Dehydration: IV fluids as noted above Present on Admission?: Yes (5) Cerebral palsy: Cerebral palsy/mental retardation/developmental delay- Continue her usual supportive medications: Baclofen, divalproex, fexofenadine, hydroxyzine, paroxetine and quetiapine. Present on Admission?: Yes (6) Mental retardation: See above Present on Admission?: Yes (7) Hypothyroidism (acquired): Continue current levothyroxine dosing Present on Admission?: Yes History of Present Illness Chief Complaint: The patient is brought to the emergency department due to fever up to 102.5 F over the past 24 hours, along with increased lethargy. Primary Care Provider: Leighann Palumbo DO The patient is a 55-year-old female resident of the [facility] with a past medical history including cerebral palsy, cognitive delay, influenza B, dehydration, aspiration pneumonia, constipation, hypothyroidism, GERD, anxiety, allergic rhinitis and muscle spasm. She is brought to the emergency department due to increased lethargy over the past 48 hours and a temperature to 102.5 degrees over the past 24 hours. The patient has been placed on Bactrim for a presumed urinary tract infection the previous day. The patient is wheelchair- bound, and has a caregiver with her to relay her HPI and review of systems, as the patient is unable to due to her baseline cognitive status. Allergies Allergy/AdvReac Type Severity Reaction Status Date / Time amoxicillin Allergy Unknown UNKNOWN Verified 06/28/20 21:18 clavulanic acid Allergy Unknown UNKNOWN Verified 06/28/20 21:18 Home Medications Home Medications Medication Instructions Recorded Confirmed Type baclofen 5 mg PO TID 11/14/19 06/28/20 History baclofen 20 mg PO TID 11/14/19 06/28/20 History carbamide peroxide [Debrox] 5 - 10 drp OTIC (EAR) DIRECTED 11/14/19 06/28/20 History docusate calcium 240 mg PO DAILY@1600,2000 11/14/19 06/28/20 History fexofenadine [Jayleen Allergy] 180 mg PO QAM 11/14/19 06/28/20 History fluticasone propionate 1 spray INTRANASAL QAM 11/14/19 06/28/20 History hydroxyzine pamoate 25 mg PO TID 11/14/19 06/28/20 History ketoconazole 1 applic TOPICAL DIRECTED PRN 11/14/19 06/28/20 History metronidazole 1 applic TOPICAL BID 11/14/19 06/28/20 History omeprazole 40 mg PO BID 11/14/19 06/28/20 History paroxetine HCl 40 mg PO QAM 11/14/19 06/28/20 History polyethylene glycol 3350 17 g PO QAM 11/14/19 06/28/20 History quetiapine 25 mg PO QAM 11/14/19 06/28/20 History quetiapine 50 mg PO DAILY@1600 11/14/19 06/28/20 History quetiapine 200 mg PO HS 11/14/19 06/28/20 History vitamin B comp and C no.3 1 cap PO QAM 11/14/19 06/28/20 History divalproex See Rx Instructions .ROUTE .COMPLEX 12/03/19 06/28/20 History levothyroxine 25 mcg PO 5XWK 06/28/20 06/28/20 History levothyroxine 50 mcg PO 2XWK 06/28/20 06/28/20 History paroxetine HCl 20 mg PO QAM 06/28/20 06/28/20 History Past Med/Surg History Medical History Abdominal pain Calculus, kidney Cerebral palsy Colitis Constipation Dehydration Dysphasia Fever Influenza Intractable vomiting Mental retardation Pneumonia Refuses to eat Sepsis Surgical History No pertinent past surgical history Family History Other Cancer Hypertension Social History Smoking Status: Never smoker Second Hand Exposure: No; Hx Alcohol Use: No Hx Substance Use: No Preferred Language: Slovenian Communication Ability: Impaired Communication Ability Comment: follows some simple commands Software Development Analyst Required: No Beliefs That Will Affect Care: None Current Living Situation: Personal Care Facility Current Living Situation Comment: [facility] private room Other Information That Helps Us Care for You: No Feels Safe at Home: Yes Assistive Devices: Glasses Assistive Devices Comment: wheelchair at facility Review of Systems Review of Systems: Unobtainable due to cognitive status Physical Exam Physical Exam: The patient is awake, normocephalic and atraumatic, sitting upright in bed, with variable activity level ranging from near sleep to being awake and crying out. HEENT--PERRL, EOMI, mucous membranes and oropharynx dry. Neck--supple. No JVD. No bruits. Thyroid normal, trachea midline, no adenopathy. Heart--normal S1 and S2. No murmurs, rubs or gallops. Lungs--clear bilaterally, no respiratory distress, no accessory muscle use. Abdomen--normal bowel sounds and soft. Nontender. Nondistended. Extremities--no cyanosis or clubbing. No edema. Dermatologic--normal skin turgor, normal color, no abnormal lymph nodes, no rash. Neurologic--cranial nerves II through XII grossly intact. Rheumatologic--upper and lower extremities in her baseline spasm Psychiatric--as described above Results & Data Results & Data ([facility]) Vital Signs (Past 12 Hours) Vital Signs Temp Pulse Resp BP Pulse Ox 06/28/20 22:03 154/106 H 06/28/20 22:02 146/111 H 06/28/20 21:30 104 H 06/28/20 21:02 101 H 24 06/28/20 21:01 103 H 18 130/110 H 06/28/20 21:00 101 H 14 06/28/20 20:30 99 H 11 L 06/28/20 20:00 104 H 16 06/28/20 19:30 108 H 22 06/28/20 19:20 108 H 25 H 06/28/20 19:19 108 H 20 133/100 06/28/20 19:00 110 H 22 06/28/20 18:30 117 H 20 06/28/20 18:09 115 H 19 06/28/20 17:28 99.1 F 06/28/20 17:08 122 H 20 155/82 H 95 Laboratory Results Laboratory Results WBC 14.20 K/uL (4.8-10.8) H 06/28/20 19:31 RBC 4.05 M/uL (4.2-5.4) L 06/28/20 19: Hgb 13.2 g/dL (12.0-16.0) 06/28/20 19: Hct 38.4 % (37-47) 06/28/20 19: MCV 94.8 fL (80-100) 06/28/20 19: MCH 32.6 pg (25-34) 06/28/20 19: MCHC 34.4 g/dL (32-36) 06/28/20 19: RDW Std Deviation 51.4 fL (36.4-46.3) H 06/28/20 19: RDW Coeff of Christopher 14.8 % (11.5-14.5) H 06/28/20 19: Plt Count 153 K/uL (130-400) 06/28/20 19: MPV 10.7 fL (7.4-10.4) H 06/28/20 19: Immature Gran % (Auto) 0.4 % 06/28/20 19: Neut % (Auto) 64.3 % 06/28/20 19: Lymph % (Auto) 27.2 % 06/28/20 19: Early % (Auto) 7.7 % 06/28/20 19: Eos % (Auto) 0.3 % 06/28/20 19: Baso % (Auto) 0.1 % 06/28/20 19: Neut # (Auto) 9.14 K/uL (1.4-6.5) H 06/28/20 19: Lymph # (Auto) 3.86 K/uL (1.2-3.4) H 06/28/20 19: Early # (Auto) 1.10 K/uL (0.11-0.59) H 06/28/20 19:31 Eos # (Auto) 0.04 K/uL (0-0.5) 06/28/20 19:31 Baso # (Auto) 0.01 K/uL (0-0.2) 06/28/20 19: Immature Gran # (Auto) 0.05 K/uL (0.00-0.02) H 06/28/20 19:31 PT 10.4 Seconds (9.0-12.0) 06/28/20 19: INR 1.0 (0.9-1.1) 06/28/20 19:31 APTT 26.7 Seconds (21.0-31.0) 06/28/20 19: PTT Ratio 1.0 06/28/20 19:31 Sodium 140 mmol/L (136-145) 06/28/20 19: Potassium 3.3 mmol/L (3.5-5.1) L 06/28/20 19:31 Chloride 105 mmol/L (98-107) 06/28/20 19:31 Carbon Dioxide 26 mmol/L (21-32) 06/28/20 19:31 Anion Gap 9.0 (3-11) 06/28/20 19:31 BUN 29 mg/dl (7-18) H 06/28/20 19:31 Creatinine 0.93 mg/dl (0.6-1.2) 06/28/20 19:31 Est Cr Clr Drug Dosing Not Reportable 06/28/20 19:31 Est GFR ( Amer) 79.6 06/28/20 19:31 Est GFR (Non-Af Amer) 68.7 06/28/20 19:31 BUN/Creatinine Ratio 30.7 (10-20) H 06/28/20 19:31 Glucose 105 mg/dl (70-99) H 06/28/20 19:31 Lactate 2.2 mmol/L (0.4-2.0) H* 06/28/20 21:38 Calcium 9.7 mg/dl (8.5-10.1) 06/28/20 19:31 Magnesium 2.1 mg/dl (1.8-2.4) 06/28/20 19:31 Total Bilirubin 0.3 mg/dl (0.2-1) 06/28/20 19:31 AST 23 U/L (15-37) 06/28/20 19: ALT 20 U/L (12-78) 06/28/20 19:31 Alkaline Phosphatase 98 U/L (45-117) 06/28/20 19: Total Protein 7.3 gm/dl (6.4-8.2) 06/28/20 19: Albumin 2.9 gm/dl (3.4-5.0) L 06/28/20: Globulin 4.4 gm/dl (2.5-4.0) H 06/28/20 19: Albumin/Globulin Ratio 0.7 (0.9-2) L 06/28/20 19: Procalcitonin 0.46 ng/ml (0-0.5) 06/28/20 19: Urine Color Dark Yellow 06/28/20 18:15 Urine Appearance Clear (Clear) 06/28/20 18:15 Urine pH 5.5 (4.5-7.5) 06/28/20 18:15 Ur Specific [place] 1.026 (1.000-1.030) 06/28/20 18:15 Urine Protein Trace (Negative) H 06/28/20 18:15 Urine Glucose (UA) Negative (Negative) 06/28/20 18:15 Urine Ketones Trace (Negative) H 06/28/20 18:15 Urine Blood Negative (Negative) 06/28/20 18:15 Urine Nitrite Positive (Negative) A 06/28/20 18:15 Urine Bilirubin 1+ (Negative) H 06/28/20 18:15 Urine Urobilinogen Negative (Negative) 06/28/20 18:15 Ur Leukocyte Esterase Trace (Negative) H 06/28/20 18:15 Urine WBC (Auto) 5-10 /hpf (0-5) H 06/28/20 18:15 Urine RBC (Auto) 0-4 /hpf (0-4) 06/28/20 18:15 U Hyaline Cast (Auto) 1-5 /lpf (0-5) 06/28/20 18:15 U Epithel Cells (Auto) >30 /lpf (0-5) H 06/28/20 18:15 Urine Bacteria (Auto) Negative (Negative) 06/28/20 18:15 Ur Renal Epithelial Cell Not Reportable 06/28/20 18:15 Urine Crystals Calcium Oxalate (None Prsent) A 06/28/20 18:15 Nasal Screen MRSA (PCR) Negative (Negative) 06/29/20 00:15 COVID-19 Eval Order Covid19 Done at [facility] 06/28/20 19:00 COVID-19 PCR NEGATIVE (Negative) 06/28/20 19:00 Diagnostic Findings [place], [place] [phone] XRay Report Patient: DEBBIE STREETER AAdmit Date: 06/28/20 MR#: [id number]: [address] Acct ID:[id number]: Date: [address] Zip: [place] [address] Age: 55Location: ED Sex: FRoom/Bed: Att Phy:Diagnosis: fever, cough, unable to void Daniela Phy: Leighann Palumbo D.O.Service Date: 06/28/20 Fam Phy: Leighann Palumbo D.O.Interpreting Phy: Jignesh Ibrahim MD Admit Phy: Ordering Phy: Ale Jaramillo M.D. cc: ~ XR chest 1V portable CLINICAL HISTORY: SEPSIS COMPARISON STUDY: Chest radiograph June 24, 2020. FINDINGS: Patient is rotated. Lung volumes are mildly diminished. This is unchanged. There is no consolidation or evidence for pulmonary edema. There is a right-sided cervical rib. Cardiomediastinal silhouette is unremarkable. IMPRESSION: No acute findings. No change in appearance of the chest. ACT 112: Negative or not required by law. Electronically signed by: Jignesh Ibrahim M.D. 06/28/2020 5:39 PM Dictated: 06/28/20 1738 Transcribed: 06/28/201737 Code Status & VTE Plan Code Status Full code VTE Prophylaxis Plan VTE Prophylaxis will be ordered: Yes PG Care Time/CCT Total # of Minutes Spent Total Time Spent with Patient: Total time spent is greater than 50% in coordination of care (as documented) at patient's floor/unit and/or counseling patient: Coding Level of Care Code 66813 Initial Inpt Care Lvl 3 Diagnoses Sepsis A41.9 Urinary tract infection N39.0 Febrile illness R50.9 Dehydration E86.0 Cerebral palsy G80.9 Mental retardation F79 Hypothyroidism (acquired) E03.9
[2020-06-28] MEDS ORDERED: QUETIAPINE FUMARATE 200 MG TAB PO STA (22:37)
[2020-06-28] MEDS ORDERED: ONDANSETRON INJ 2 MG/ML 2 ML VIAL IV PRN (23:14)
[2020-06-28] MEDS ORDERED: ACETAMINOPHEN 325 MG TAB PO PRN (23:14)
[2020-06-28] MEDS ORDERED: KETOCONAZOLE 2% CR 15 GM TUBE EXT PRN (23:14)
--- NOTE | 2020-06-28 23:23 | Emergency Department Note ---
History of Present Illness General Chief complaint: Fever Stated complaint: fever, cough, unable to void Time Seen by Provider: 06/28/20 17:18 Source: RN notes reviewed and other (Caregiver at the bedside) Mode of arrival: wheelchair Limitations: physical limitation (Minimally verbal at baseline due to cerebral palsy, cognitive disability) History of Present Illness Provider complaint: Fever, possible UTI This patient is a 55-year-old female who resides at [facility] with a history of cerebral palsy, cognitive delay and is wheelchair-bound who presents with her caregiver with a 24-hour history of fever up to 102.5. Patient was placed on Bactrim yesterday for presumed UTI. According to caregiver it is very difficult to obtain a urine sample from the patient as she is not able to urinate on command and is difficult to catheterize. Home Medications Home Medications Medication Instructions Recorded Confirmed Type baclofen 5 mg PO TID 11/14/19 06/28/20 History baclofen 20 mg PO TID 11/14/19 06/28/20 History carbamide peroxide [Debrox] 5 - 10 drp OTIC (EAR) DIRECTED 11/14/19 06/28/20 History docusate calcium 240 mg PO DAILY@1600,2000 11/14/19 06/28/20 History fexofenadine [Jayleen Allergy] 180 mg PO QAM 11/14/19 06/28/20 History fluticasone propionate 1 spray INTRANASAL QAM 11/14/19 06/28/20 History hydroxyzine pamoate 25 mg PO TID 11/14/19 06/28/20 History ketoconazole 1 applic TOPICAL DIRECTED PRN 11/14/19 06/28/20 History metronidazole 1 applic TOPICAL BID 11/14/19 06/28/20 History omeprazole 40 mg PO BID 11/14/19 06/28/20 History paroxetine HCl 40 mg PO QAM 11/14/19 06/28/20 History polyethylene glycol 3350 17 g PO QAM 11/14/19 06/28/20 History quetiapine 25 mg PO QAM 11/14/19 06/28/20 History quetiapine 50 mg PO DAILY@1600 11/14/19 06/28/20 History quetiapine 200 mg PO HS 11/14/19 06/28/20 History vitamin B comp and C no.3 1 cap PO QAM 11/14/19 06/28/20 History divalproex See Rx Instructions .ROUTE .COMPLEX 12/03/19 06/28/20 History levothyroxine 25 mcg PO 5XWK 06/28/20 06/28/20 History levothyroxine 50 mcg PO 2XWK 06/28/20 06/28/20 History paroxetine HCl 20 mg PO QAM 06/28/20 06/28/20 History cefdinir 300 mg PO BID 5 Days #10 cap 06/29/20 Rx Allergies Allergy/AdvReac Type Severity Reaction Status Date / Time amoxicillin Allergy Unknown UNKNOWN Verified 06/28/20 21:18 clavulanic acid Allergy Unknown UNKNOWN Verified 06/28/20 21:18 Past Med/Surg History Medical History Abdominal pain Calculus, kidney Cerebral palsy Colitis Constipation Dehydration Dysphasia Fever Influenza Intractable vomiting Mental retardation Pneumonia Refuses to eat Sepsis Surgical History No pertinent past surgical history Family History Other Cancer Hypertension Social History Smoking Status: Never smoker Second Hand Exposure: No; Hx Alcohol Use: No Hx Substance Use: No Preferred Language: Italian Communication Ability: Unable Test Consultant Required: No Beliefs That Will Affect Care: None Current Living Situation: Personal Care Facility Current Living Situation Comment: [facility] private room Feels Safe at Home: Yes Assistive Devices: Wheelchair Review of Systems Unobtainable due to cognitive status and Other (Minimally able to verbalize) Physical Exam Vital Signs Vital Signs - 24 hr 06/28/20 17:08 06/28/20 17:28 06/28/20 18:09 Temperature 37.3 C Temperature Source Rectal Pulse Rate 122 H 115 H Respiratory Rate 20 19 Respiratory Effort / Characteristics Non-Labored Respiratory Depth Normal Blood Pressure 155/82 H Blood Pressure Mean 106 Pulse Oximetry 95 Oxygen Delivery Method Room Air Sepsis Recent Fever Within 48 Hours Yes Sepsis New/Unexplained Change in Mental Status N/A Sepsis Action Taken by Nursing No Action Required 06/28/20 18:30 06/28/20 19:00 06/28/20 19:19 Temperature Temperature Source Pulse Rate 117 H 110 H 108 H Respiratory Rate 20 22 20 Respiratory Effort / Characteristics Respiratory Depth Blood Pressure 133/100 Blood Pressure Mean 109 Pulse Oximetry Oxygen Delivery Method Sepsis Recent Fever Within 48 Hours Sepsis New/Unexplained Change in Mental Status Sepsis Action Taken by Nursing 06/28/20 19:20 06/28/20 19:30 06/28/20 20:00 Temperature Temperature Source Pulse Rate 108 H 108 H 104 H Respiratory Rate 25 H 22 16 Respiratory Effort / Characteristics Respiratory Depth Blood Pressure Blood Pressure Mean Pulse Oximetry Oxygen Delivery Method Sepsis Recent Fever Within 48 Hours Sepsis New/Unexplained Change in Mental Status Sepsis Action Taken by Nursing 06/28/20 20:30 06/28/20 21:00 06/28/20 21:01 Temperature Temperature Source Pulse Rate 99 H 101 H 103 H Respiratory Rate 11 L 14 18 Respiratory Effort / Characteristics Respiratory Depth Blood Pressure 130/110 H Blood Pressure Mean 116 Pulse Oximetry Oxygen Delivery Method Sepsis Recent Fever Within 48 Hours Sepsis New/Unexplained Change in Mental Status Sepsis Action Taken by Nursing 06/28/20 21:02 Temperature Temperature Source Pulse Rate 101 H Respiratory Rate 24 Respiratory Effort / Characteristics Respiratory Depth Blood Pressure Blood Pressure Mean Pulse Oximetry Oxygen Delivery Method Sepsis Recent Fever Within 48 Hours Sepsis New/Unexplained Change in Mental Status Sepsis Action Taken by Nursing Vital signs reviewed. General: Chronically ill-appearing, wheelchair-bound 55-year-old female, in no significant distress. HEENT: No conjunctival injection, PERRLA, neck supple. Moist mucous membranes. Cardiovascular: Tachycardic and regular, no extra sounds. Pulmonary: Clear to auscultation bilaterally, normal work of breathing. Abdomen: Soft, nontender, nondistended, positive bowel sounds. Musculoskeletal: Contractures the bilateral upper extremities, atrophied BLE with minimal mobility : Generally normal external female genitals. Urethra is difficult to visualize however there is some overall atrophy of the perineum Neurologic: Patient awake alert and interactive. Patient is minimally verbal and difficult to comprehend. Skin: Warm, dry, no rash Procedures Catheter Insertion (Urinary) Prophylactic Antibiotics Given: No Bladder Scan/US before Catheterization: Yes Estimated amount of urine (mL): 240 Preparation: Povidone-Iodine Type of Catheter Inserted: other (straight, femcath) Results: successfully catheterized-immediate flow Patient Tolerated Procedure: well and no complications Complications: none Course Administered Medications Discontinued Medications Baclofen (Baclofen 20 Mg Tab) 20 mg PO TID [facility] Stop: 07/29/20 08:59 Last Admin: 06/29/20 09:39 Dose: 20 mg Documented by: [id number] Baclofen (Baclofen 10 Mg Tab) 5 mg PO TID [facility] Stop: 07/29/20 08:59 Last Admin: 06/29/20 09:39 Dose: 5 mg Documented by: [id number] Divalproex Sodium (Divalproex Extended Release 500 Mg Tab) 500 mg PO QAM [facility] Stop: 07/29/20 08:59 Last Admin: 06/29/20 09:38 Dose: 500 mg Documented by: [id number] Divalproex Sodium (Divalproex Extended Release 500 Mg Tab) 1,000 mg PO PM [facility] Stop: 07/29/20 00:00 Last Admin: 06/29/20 00:30 Dose: 1,000 mg Documented by: [id number] Fexofenadine HCl (Fexofenadine Hcl 180 Mg Tab) 180 mg PO QAM [facility] Stop: 07/29/20 08:59 Last Admin: 06/29/20 09:38 Dose: 180 mg Documented by: [id number] Fluticasone Propionate (Fluticasone Propionate Na Spr 16 Gm Btl) 1 sprays NURYS QAM [facility] Stop: 07/29/20 08:59 Last Admin: 06/29/20 09:40 Dose: 1 sprays Documented by: [id number] Heparin Sodium (Porcine) (Heparin Sod 5,000 Unit/0.5 Ml Vial) 5,000 units SQ Q12 [facility] Stop: 07/29/20 08:59 Last Admin: 06/29/20 09:40 Dose: 5,000 units Documented by: [id number] Cosigned by: [id number] Hydroxyzine HCl (Hydroxyzine Hcl 25 Mg Tab) 25 mg PO TID [facility] Stop: 07/29/20 08:59 Last Admin: 06/29/20 09:39 Dose: 25 mg Documented by: [id number] Sodium Chloride (Nss) 500 mls @ 999 mls/hr IV .Q31M ONE Stop: 06/28/20 18:55 Last Infusion: 06/28/20 21:07 Dose: 0 mls/hr Documented by: [id number] Admin: 06/28/20 19:30 Dose: 999 mls/hr Documented by: [id number] Sodium Chloride (Nss 1000ml) 1,000 mls @ 125 mls/hr IV .Q8H [facility] Stop: 07/28/20 18:29 Last Infusion: 06/29/20 07:49 Dose: 0 mls/hr Documented by: [id number] Admin: 06/28/20 19:30 Dose: 125 mls/hr Documented by: [id number] Ceftriaxone Sodium (Rocephin) 1,000 mg in 50 mls @ 100 mls/hr IV NOW STA Stop: 06/28/20 20:40 Last Infusion: 06/28/20 22:33 Dose: 0 mls/hr Documented by: [id number] Admin: 06/28/20 21:50 Dose: 100 mls/hr Documented by: [id number] Sodium Chloride (Nss 1000ml) 500 mls @ 999 mls/hr IV .Q31M ONE Stop: 06/28/20 21:03 Last Infusion: 06/28/20 22:33 Dose: 0 mls/hr Documented by: [id number] Admin: 06/28/20 20:58 Dose: 999 mls/hr Documented by: [id number] Sodium Chloride (Nss 1000ml) 1,000 mls @ 150 mls/hr IV .Q6H40M [facility] Stop: 07/28/20 20:44 Last Admin: 06/29/20 07:49 Dose: Not Given Documented by: [id number] Potassium Chloride/Sodium Chloride (Normal Saline W/20 Meq Kcl) 20 meq in 1,000 mls @ 100 mls/hr IV .Q10H [facility] Stop: 07/28/20 23:13 Last Admin: 06/29/20 09:36 Dose: 100 mls/hr Documented by: [id number] Infusion: 06/29/20 09:36 Dose: 100 mls/hr Documented by: [id number] Admin: 06/29/20 00:29 Dose: 100 mls/hr Documented by: [id number] Miscellaneous (Patient's Height And/Or Weight Needed) 1 ea N/A Q2H [facility] Stop: 07/28/20 23:44 Last Admin: 06/29/20 07:49 Dose: Not Given Documented by: [id number] Pantoprazole Sodium (Pantoprazole 40 Mg Tab) 40 mg PO BID [facility] Stop: 07/29/20 00:00 Last Admin: 06/29/20 09:39 Dose: 40 mg Documented by: [id number] Admin: 06/29/20 00:30 Dose: 40 mg Documented by: [id number] Paroxetine HCl ([facility] Hcl 20 Mg Tab) [facility]: 07/29/20 08:59 Last Admin: 06/29/20 09:38 Dose: 40 mg Documented by: [id number] Polyethylene Glycol (Polyethylene (Miralax) 17 Gm Pack) [facility]: 07/29/20 08:59 Last Admin: 06/29/20 09:40 Dose: 17 gm Documented by: [id number] Quetiapine Fumarate (Quetiapine Fumarate 200 Mg Tab) 200 mg PO NOW [facility] Stop: 06/28/20 22:38 Last Admin: 06/28/20 23:00 Dose: 200 mg Documented by: [id number] Quetiapine Fumarate (Quetiapine Fumarate 25 Mg Tablet) 25 mg PO [facility] Stop: 07/29/20 08:59 Last Admin: 06/29/20 09:39 Dose: 25 mg Documented by: [id number] Vitamin B Complex (Vitamin B Complex Tab) 1 tab PO [facility] Stop: 07/29/20 08:59 Last Admin: 06/29/20 09:38 Dose: 1 tab Documented by: [id number] Medical Decision Making Differential Diagnosis Differential diagnosis: Etiologies such as viral syndrome, otitis, pharyngitis, pneumonia, influenza, meningitis, urinary tract infection, septic arthritis, soft tissue infectious process, intra-abdominal process, sepsis, bacteremia, as well as others were entertained. Medical Records Attestation: I reviewed the patient's medical records. Home Medications Current Medication List: was personally reviewed by me Laboratory Data Attestation: I reviewed the patient's lab results. Result diagrams: 06/29/20 08:16 06/29/20 08:16 Lab Results 06/28/20 06/28/20 06/28/20 Range/Units 18:15 19:00 19:00 WBC (4.8-10.8) K/uL RBC (4.2-5.4) M/uL Hgb (12.0-16.0) g/dL Hct (37-47) % MCV (80-100) fL MCH (25-34) pg MCHC (32-36) g/dL RDW Std Deviation (36.4-46.3) fL RDW Coeff of Christopher (11.5-14.5) % Plt Count (130-400) K/uL MPV (7.4-10.4) fL Immature Gran % (Auto) % Neut % (Auto) % Lymph % (Auto) % [place]duffie % (Auto) % Eos % (Auto) % Baso % (Auto) % Neut # (Auto) (1.4-6.5) K/uL Lymph # (Auto) (1.2-3.4) K/uL [place]duffie # (Auto) (0.11-0.59) K/uL Eos # (Auto) (0-0.5) K/uL Baso # (Auto) (0-0.2) K/uL Immature Gran # (Auto) (0.00-0.02) K/uL PT (9.0-12.0) Seconds INR (0.9-1.1) APTT (21.0-31.0) Seconds PTT Ratio Sodium (136-145) mmol/L Potassium (3.5-5.1) mmol/L Chloride (98-107) mmol/L Carbon Dioxide (21-32) mmol/L Anion Gap (3-11) BUN (7-18) mg/dl Creatinine (0.6-1.2) mg/dl Est Cr Clr Drug Dosing Est GFR ( Amer) Est GFR (Non-Af Amer) BUN/Creatinine Ratio (10-20) Glucose (70-99) mg/dl Lactate (0.4-2.0) mmol/L Calcium (8.5-10.1) mg/dl Magnesium (1.8-2.4) mg/dl Total Bilirubin (0.2-1) mg/dl AST (15-37) U/L ALT (12-78) U/L Alkaline Phosphatase (45-117) U/L Total Protein (6.4-8.2) gm/dl Albumin (3.4-5.0) gm/dl Globulin (2.5-4.0) gm/dl Albumin/Globulin Ratio (0.9-2) Procalcitonin (0-0.5) ng/ml Urine Color Dark Yellow Urine Appearance Clear (Clear) Urine pH 5.5 (4.5-7.5) Ur Specific [place] 1.026 (1.000-1.030) Urine Protein Trace H (Negative) Urine Glucose (UA) Negative (Negative) Urine Ketones Trace H (Negative) Urine Blood Negative (Negative) Urine Nitrite Positive A (Negative) Urine Bilirubin 1+ H (Negative) Urine Urobilinogen Negative (Negative) Ur Leukocyte Esterase Trace H (Negative) Urine WBC (Auto) 5-10 H (0-5) /hpf Urine RBC (Auto) 0-4 (0-4) /hpf U Hyaline Cast (Auto) 1-5 (0-5) /lpf U Epithel Cells (Auto) >30 H (0-5) /lpf Urine Bacteria (Auto) Negative (Negative) Ur Renal Epithelial Cell Not Reportable Urine Crystals Calcium Oxalate A (None Prsent) COVID-19 Eval Order Covid19 Done at [facility] COVID-19 PCR NEGATIVE (Negative) Hepatitis C Ab Screen (Neg) 06/28/20 06/28/20 06/28/20 Range/Units 19:31 19:31 19:31 WBC 14.20 H (4.8-10.8) K/uL RBC 4.05 L (4.2-5.4) M/uL Hgb 13.2 (12.0-16.0) g/dL Hct 38.4 (37-47) % MCV 94.8 (80-100) fL MCH 32.6 (25-34) pg MCHC 34.4 (32-36) g/dL RDW Std Deviation 51.4 H (36.4-46.3) fL RDW Coeff of Christopher 14.8 H (11.5-14.5) % Plt Count 153 (130-400) K/uL MPV 10.7 H (7.4-10.4) fL Immature Gran % (Auto) 0.4 % Neut % (Auto) 64.3 % Lymph % (Auto) 27.2 % Mcduffie % (Auto) 7.7 % Eos % (Auto) 0.3 % Baso % (Auto) 0.1 % Neut # (Auto) 9.14 H (1.4-6.5) K/uL Lymph # (Auto) 3.86 H (1.2-3.4) K/uL [place]ff[place] # (Auto) 1.10 H (0.11-0.59) K/uL Eos # (Auto) 0.04 (0-0.5) K/uL Baso # (Auto) 0.01 (0-0.2) K/uL Immature Gran # (Auto) 0.05 H (0.00-0.02) K/uL PT 10.4 (9.0-12.0) Seconds INR 1.0 (0.9-1.1) APTT 26.7 (21.0-31.0) Seconds PTT Ratio 1.0 Sodium 140 (136-145) mmol/L Potassium 3.3 L (3.5-5.1) mmol/L Chloride 105 (98-107) mmol/L Carbon Dioxide 26 (21-32) mmol/L Anion Gap 9.0 (3-11) BUN 29 H (7-18) mg/dl Creatinine 0.93 (0.6-1.2) mg/dl Est Cr Clr Drug Dosing Not Reportable Est GFR ( Amer) 79.6 Est GFR (Non-Af Amer) 68.7 BUN/Creatinine Ratio 30.7 H (10-20) Glucose 105 H (70-99) mg/dl Lactate (0.4-2.0) mmol/L Calcium 9.7 (8.5-10.1) mg/dl Magnesium 2.1 (1.8-2.4) mg/dl Total Bilirubin 0.3 (0.2-1) mg/dl AST 23 (15-37) U/L ALT 20 (12-78) U/L Alkaline Phosphatase 98 (45-117) U/L Total Protein 7.3 (6.4-8.2) gm/dl Albumin 2.9 L (3.4-5.0) gm/dl Globulin 4.4 H (2.5-4.0) gm/dl Albumin/Globulin Ratio 0.7 L (0.9-2) Procalcitonin (0-0.5) ng/ml Urine Color Urine Appearance (Clear) Urine pH (4.5-7.5) Ur Specific [place] (1.000-1.030) Urine Protein (Negative) Urine Glucose (UA) (Negative) Urine Ketones (Negative) Urine Blood (Negative) Urine Nitrite (Negative) Urine Bilirubin (Negative) Urine Urobilinogen (Negative) Ur Leukocyte Esterase (Negative) Urine WBC (Auto) (0-5) /hpf Urine RBC (Auto) (0-4) /hpf U Hyaline Cast (Auto) (0-5) /lpf U Epithel Cells (Auto) (0-5) /lpf Urine Bacteria (Auto) (Negative) Ur Renal Epithelial Cell Urine Crystals (None Prsent) COVID-19 Eval Order COVID-19 PCR (Negative) Hepatitis C Ab Screen (Neg) 06/28/20 06/28/20 06/28/20 Range/Units 19:31 19:31 19:31 WBC (4.8-10.8) K/uL RBC (4.2-5.4) M/uL Hgb (12.0-16.0) g/dL Hct (37-47) % MCV (80-100) fL MCH (25-34) pg MCHC (32-36) g/dL RDW Std Deviation (36.4-46.3) fL RDW Coeff of Christopher (11.5-14.5) % Plt Count (130-400) K/uL MPV (7.4-10.4) fL Immature Gran % (Auto) % Neut % (Auto) % Lymph % (Auto) % [place]duff[place] % (Auto) % Eos % (Auto) % Baso % (Auto) % Neut # (Auto) (1.4-6.5) K/uL Lymph # (Auto) (1.2-3.4) K/uL [place] # (Auto) (0.11-0.59) K/uL Eos # (Auto) (0-0.5) K/uL Baso # (Auto) (0-0.2) K/uL Immature Gran # (Auto) (0.00-0.02) K/uL PT (9.0-12.0) Seconds INR (0.9-1.1) APTT (21.0-31.0) Seconds PTT Ratio Sodium (136-145) mmol/L Potassium (3.5-5.1) mmol/L Chloride (98-107) mmol/L Carbon Dioxide (21-32) mmol/L Anion Gap (3-11) BUN (7-18) mg/dl Creatinine (0.6-1.2) mg/dl Est Cr Clr Drug Dosing Est GFR ( Amer) Est GFR (Non-Af Amer) BUN/Creatinine Ratio (10-20) Glucose (70-99) mg/dl Lactate 2.6 H* (0.4-2.0) mmol/L Calcium (8.5-10.1) mg/dl Magnesium (1.8-2.4) mg/dl Total Bilirubin (0.2-1) mg/dl AST (15-37) U/L ALT (12-78) U/L Alkaline Phosphatase (45-117) U/L Total Protein (6.4-8.2) gm/dl Albumin (3.4-5.0) gm/dl Globulin (2.5-4.0) gm/dl Albumin/Globulin Ratio (0.9-2) Procalcitonin 0.46 (0-0.5) ng/ml Urine Color Urine Appearance (Clear) Urine pH (4.5-7.5) Ur Specific [place] (1.000-1.030) Urine Protein (Negative) Urine Glucose (UA) (Negative) Urine Ketones (Negative) Urine Blood (Negative) Urine Nitrite (Negative) Urine Bilirubin (Negative) Urine Urobilinogen (Negative) Ur Leukocyte Esterase (Negative) Urine WBC (Auto) (0-5) /hpf Urine RBC (Auto) (0-4) /hpf U Hyaline Cast (Auto) (0-5) /lpf U Epithel Cells (Auto) (0-5) /lpf Urine Bacteria (Auto) (Negative) Ur Renal Epithelial Cell Urine Crystals (None Prsent) COVID-19 Eval Order COVID-19 PCR (Negative) Hepatitis C Ab Screen Neg (Neg) Imaging Data Radiologist's Impression: XR chest 1V portable CLINICAL HISTORY: SEPSIS COMPARISON STUDY: Chest radiograph June 24, 2020. FINDINGS: Patient is rotated. Lung volumes are mildly diminished. This is unchanged. There is no consolidation or evidence for pulmonary edema. There is a right-sided cervical rib. Cardiomediastinal silhouette is unremarkable. IMPRESSION: No acute findings. No change in appearance of the chest. ACT 112: Negative or not required by law. Electronically signed by: Jignesh Ibrahim M.D. 06/28/2020 5:39 PM Dictated: 06/28/201737 Transcribed: 06/28/201737 ECG Data Attestation: I personally reviewed and interpreted this ECG as follows: Indication: + tachycardia Rate (beats per minute): 119 Rhythm: + sinus tachycardia ECG ST segments: + Nonspecific ST abnormalities (diffuse) ECG Findings: no PACs and no PVCs Blood Pressure Blood Pressure Findings: Elevated blood pressure Blood Pressure Disposition: further management by hospitalist MDM Narrative This patient was evaluated and appeared to be in some discomfort. An order for cardiac monitoring was placed and the patient is noted to be in a sinus tachycardia at 119 bpm. IV access was difficult to obtain. There is a significant delay in getting laboratory work. IV normal saline solution 500 mL bolus was administered x2. Catheterized urine sample was obtained by myself as nursing had difficulty navigating the patient's anatomy. UA appears to be negative for infection however the patient has been on Bactrim for 2 days prior to arrival. She does have an elevated WBC of 14.2. Patient's lactate is elevated at 2.6. Patient had no appreciable temperature in the emergency department however she did develop some mild agitation and sweating. Patient was medicated with 1 g of IV ceftriaxone for presumed UTI. Given the elevated lactate and WBC, the patient will be evaluated by the hospitalist service for further management. Impression & Plan Urinary tract infection, Cerebral palsy, Dehydration, Fever Discharge Plan Visit Data Chief Complaint: Fever Stated Complaint: fever, cough, unable to void ED Provider: Ale Jaramillo Discharge Problem: Urinary tract infection, Cerebral palsy, Dehydration, Fever Patient Disposition: Admitted As Inpatient Discharge Instructions Interventions: ED Discharge Assessment Last Done: 06/28/20 22:18 Discharge Problem: Urinary tract infection Qualifiers: Urinary tract infection type: acute cystitis Hematuria presence: without hematuria Qualified Code(s): N30.00 - Acute cystitis without hematuria Cerebral palsy Qualifiers: Cerebral palsy type: unspecified type Qualified Code(s): G80.9 - Cerebral palsy, unspecified Fever Qualifiers: Fever type: due to other condition Qualified Code(s): R50.81 - Fever presenting with conditions classified elsewhere
[2020-06-28] MEDS ORDERED: PATIENT'S HEIGHT AND/OR WEIGHT NEEDED SCH (23:45)
[2020-06-29] MEDS: NSS + 20MEQ KCL 20 MEQ/1,000 ML BAG IV SCH ×2 (00:29→09:36)
[2020-06-29] MEDS: PANTOprazole 40 MG TAB PO SCH ×2 (00:30→09:39)
[2020-06-29 08:27] LABS: Basophils # (auto) 0.01 K/uL (0-0.2); Basophils % (auto) 0.1 %; Eosinophils # (auto) 0.02 K/uL (0-0.5); Eosinophils % (auto) 0.2 %; Hematocrit (blood only) 34.6 % (37-47); Hemoglobin 11.7 g/dL (12.0-16.0); Immature Granulocytes # (auto) 0.03 K/uL (0.00-0.02); Immature Granulocytes % (auto) 0.3 %; Lymphocytes # (auto) 3.01 K/uL (1.2-3.4); Lymphocytes % (auto) 29.5 %; Mean Corpuscular Hemoglobin 32.1 pg (25-34); Mean Corpuscular Hgb Conc 33.8 g/dL (32-36); Mean Corpuscular Volume 95.1 fL (80-100); Mean Platelet Volume 10.8 fL (7.4-10.4); Monocytes # (auto) 0.81 K/uL (0.11-0.59); Monocytes % (auto) 7.9 %; Neutrophils # (auto) 6.31 K/uL (1.4-6.5); Platelet Count 154 K/uL (130-400); RDW Coefficient of Variation 14.8 % (11.5-14.5); RDW Standard Deviation 51.6 fL (36.4-46.3); Red Blood Count 3.64 M/uL (4.2-5.4); White Blood Count 10.19 K/uL (4.8-10.8)
[2020-06-29] MEDS ORDERED: POLYETHYLENE (MIRALAX) 17 GM PACK PO SCH (09:00)
[2020-06-29] MEDS ORDERED: FLUTICASONE PROPIONATE NA SPR 16 GM BTL NAE SCH (09:00)
[2020-06-29] MEDS ORDERED: BACLOFEN 10 MG TAB PO SCH ×2 (09:00)
[2020-06-29] MEDS ORDERED: FEXOFENADINE HCL 180 MG TAB PO SCH (09:00)
[2020-06-29] MEDS ORDERED: BACLOFEN 20 MG TAB PO SCH (09:00)
[2020-06-29] MEDS ORDERED: PARoxetine HCL 20 MG TAB PO SCH (09:00)
[2020-06-29] MEDS ORDERED: VITAMIN B COMPLEX TAB PO SCH (09:00)
[2020-06-29] MEDS ORDERED: HEPARIN SOD 5,000 UNIT/0.5 ML VIAL SQ SCH (09:00)
[2020-06-29] MEDS ORDERED: QUETIAPINE FUMARATE 25 MG TABLET PO SCH ×2 (09:00→16:00)
[2020-06-29] MEDS ORDERED: DIVALPROEX EXTENDED RELEASE 500 MG TAB PO SCH ×2 (09:00)
[2020-06-29 09:59] LABS: Albumin Globulin Ratio 0.6 (0.9-2); Albumin Level 2.6 gm/dl (3.4-5.0); BUN Creatinine Ratio 40.2 (10-20); Bilirubin,Total 0.2 mg/dl (0.2-1); Creatinine Clr Calc Pharmacy 95.6 ml/min; Est GFR (African American) 131.8; Est GFR (Non-African American) 113.7; Globulin 4.1 gm/dl (2.5-4.0); Magnesium 2.1 mg/dl (1.8-2.4); Potassium 3.7 mmol/L (3.5-5.1); Total Protein 6.7 gm/dl (6.4-8.2)
--- NOTE | 2020-06-29 13:00 | Electrocardiogram Report ---
Test Reason : Blood Pressure : / mmHG Vent. Rate : 119 BPM Atrial Rate : 119 BPM P-R Int : 122 ms QRS Dur : 058 ms QT Int : 342 ms P-R-T Axes : 053 032 004 degrees QTc Int : 481 ms Poor data quality, interpretation may be adversely affected Sinus tachycardia Possible Left atrial enlargement Nonspecific ST and T wave abnormality Abnormal ECG When compared with ECG of 03-DEC-2019 11:51, Fusion complexes are no longer Present Nonspecific T wave abnormality has replaced inverted T waves in Lateral leads Confirmed by Maurice Falk ([id number]) on 06/29/2020 1:00:30 PM Referred By: REFERRED SELF Confirmed By:Maurice Falk
--- NOTE | 2020-06-29 15:30 | Discharge Summary ---
Date of Service June 29, 2020 Admission HPI Per Admitting Provider The patient is a 55-year-old female resident of the [facility] with a past medical history including cerebral palsy, cognitive delay, influenza B, dehydration, aspiration pneumonia, constipation, hypothyroidism, GERD, anxiety, allergic rhinitis and muscle spasm. She is brought to the emergency department due to increased lethargy over the past 48 hours and a temperature to 102.5 degrees over the past 24 hours. The patient has been placed on Bactrim for a presumed urinary tract infection the previous day. The patient is wheelchair- bound, and has a caregiver with her to relay her HPI and review of systems, as the patient is unable to due to her baseline cognitive status. Principal Diagnosis UTI Discharge Exam Constitutional + language barrier and + frail appearing Eyes EOM intact bilaterally; no conjunctival abnormality ENMT external ear and nose normal, oropharynx normal Neck trachea midline, no thyromegaly normal visual inspection Respiratory normal respiratory effort, lungs clear to auscultation no respiratory distress Cardiovascular Rate/Rhythm: regular rhythm and + tachycardic Heart Sounds: normal S1 and normal S2 Gastrointestinal (Abdomen) Inspection/Auscultation: abdomen normal to inspection; abdomen not distended Musculoskeletal no cyanosis or clubbing, extremities motor strength 5/5 Skin no rashes, warm and dry Neurologic moves all extremities (Functional quadriplegia - Difficulty moving arms) and awake Psychiatric Orientation: alert and cooperative; + not oriented to person Discharge Data Allergies Allergy/AdvReac Type Severity Reaction Status Date / Time amoxicillin Allergy Unknown UNKNOWN Verified 06/28/20 21:18 clavulanic acid Allergy Unknown UNKNOWN Verified 06/28/20 21:18 Consultations 06/28/20 20:42 ED Decision to Admit Stat 06/28/20 23:14 Consult Case Management - Discharge Planning Routine Hospital Course (1) Urinary tract infection: Presumed as above, though urine culture not done in the ER, then she was on antibiotics. - Significant improvement and return to baseline per traction power engineer at bedside. - Discharged on 5 additional days of antibiotics in same family as ceftriaxone (cefdinir 300 mg PO BID) (2) Sepsis: Sepsis with mildly elevated lactate, tachycardia, and elevated WBC. - Resolved by discharge (3) Febrile illness: As noted above. (4) Dehydration: IV fluids as noted above (5) Cerebral palsy: Cerebral palsy/mental retardation/developmental delay- - Continue her usual supportive medications: Baclofen, divalproex, fexofenadine, hydroxyzine, paroxetine and quetiapine. (6) Mental retardation: See above (7) Hypothyroidism (acquired): - Continue current levothyroxine dosing. Total Time Total Time Spent Total Time Spent (In Minutes): 35 Discharge Plan Discharge Items Patient Disposition: Trans Resident Long-Term Care Reason For Visit: ALTERED MENTATION, FEBRILE ILLNESS Discharge Diagnosis: Urinary tract infection Activity: Resume your previous activity Non-emergency contact: Primary Care Provider Call non-emergency contact if: your symptoms worsen and your temperature is above 101 Follow-up/Referrals: Leighann Palumbo DO [Primary Care Provider] - 07/04/20 1:10 pm Diet: Regular Addtl Attending Provider Instructions: Ms. Lara was admitted for a UTI that caused some mild dehydration. We will send her out on an antibiotic that is similar to her IV antibiotic which seemed to improve her feeling very quickly. She will be on cefdinir 300 mg by mouth 2 times per day x 5 more days. The first dose is tonight before bedtime, then twice per day after that. We will monitor her cultures done in the hospital and update you if anything should change or if the antibiotic needs to be switched. Pending Studies at Discharge: Yes Studies:: Blood cultures Stand-Alone Forms: My [facility] Skilled Items Patient informed of condition?: Yes DNR: No Discharge Level of Care: Skilled Communicable Disease: No Discharge Prognosis: Improving Lines: None Urinary Catheter: No Medications and DC Order Prescriptions: New cefdinir 300 mg capsule 300 mg PO BID 5 Days Qty: 10 RF: 0 Continued quetiapine 25 mg tablet 25 mg PO QAM RF: 0 docusate calcium 240 mg Capsule 240 mg PO DAILY@1600,2000 RF: 0 quetiapine 200 mg tablet 200 mg PO HS RF: 0 fexofenadine [Jayleen Allergy] 180 mg Tablet 180 mg PO QAM RF: 0 omeprazole 40 mg capsule,delayed release(DR/EC) 40 mg PO BID RF: 0 baclofen 20 mg tablet 20 mg PO TID RF: 0 baclofen 10 mg tablet 5 mg PO TID RF: 0 metronidazole 0.75 % cream 1 applic TOPICAL BID RF: 0 carbamide peroxide [Debrox] 6.5 % Drops 5 - 10 drp OTIC (EAR) DIRECTED RF: 0 polyethylene glycol 3350 17 gram/dose powder 17 g PO QAM RF: 0 paroxetine HCl 40 mg tablet 40 mg PO QAM RF: 0 ketoconazole 2 % cream 1 applic TOPICAL DIRECTED PRN (Reason: Skin Irritation) RF: 0 fluticasone propionate 50 mcg/actuation spray,suspension 1 spray INTRANASAL QAM RF: 0 hydroxyzine pamoate 25 mg capsule 25 mg PO TID RF: 0 quetiapine 50 mg tablet 50 mg PO DAILY@1600 RF: 0 vitamin B comp and C no.3 27-92-52-5-300 mg Capsule 1 cap PO QAM RF: 0 paroxetine HCl 20 mg tablet 20 mg PO QAM RF: 0 levothyroxine 25 mcg tablet 25 mcg PO 5XWK RF: 0 levothyroxine 50 mcg tablet 50 mcg PO 2XWK RF: 0 divalproex 500 mg tablet extended release 24 hr See Rx Instructions .ROUTE .COMPLEX RF: 0 Discharge Orders: Discharge Order (Routine); Ordered 06/29/20 Ordered By: Tereso Rogel/Other Patient Handouts: Urinary Tract Infections in Women Admission Data Admit Date/Time: 06/28/20 21:25 Attending Provider: Tereso Bates Admit Provider: Ren Montoya Primary Care Provider: Leighann Palumbo Other Providers: Tereso Bates Other Interventions: Discharge Summary Assessment (RN) Last Done: 06/29/20 11:06 Coding Level of Care Code 76240 OBS Care - Discharge Diagnoses Urinary tract infection N39.0 Sepsis A41.9 Febrile illness R50.9 Dehydration E86.0 Cerebral palsy G80.9 Mental retardation F79 Hypothyroidism (acquired) E03.9
[2020-06-29] MEDS ORDERED: DOCUSATE CALCIUM 240 MG CAPSULE PO SCH (16:00)
[2020-06-29] MEDS ORDERED: QUETIAPINE FUMARATE 200 MG TAB PO SCH (21:00)
[2020-06-29] MEDS ORDERED: cefTRIAXone SODIUM 1,000 MG in DEXTROSE 5% 50 ML IV SCH (21:00)
== END 2020-06-29 13:34 | DRG 871 ==
LOC: ED 17:04 → 3W 21:25 → INTOOBSV 21:25 → SUATTDRO 21:25 → 3W 22:18

== ENCOUNTER 2021-05-17 16:24 | Observation (INO) ==
[2021-05-17 17:51] LABS: Basophils # (auto) 0.01 K/uL (0-0.2); Basophils % (auto) 0.1 %; Eosinophils # (auto) 0.01 K/uL (0-0.5); Eosinophils % (auto) 0.1 %; Hematocrit (blood only) 36.6 % (37-47); Hemoglobin 12.5 g/dL (12.0-16.0); Immature Granulocytes # (auto) 0.19 K/uL (0.00-0.02); Immature Granulocytes % (auto) 1.2 %; Lymphocytes # (auto) 4.14 K/uL (1.2-3.4); Lymphocytes % (auto) 25.5 %; Mean Corpuscular Hemoglobin 32.9 pg (25-34); Mean Corpuscular Hgb Conc 34.2 g/dL (32-36); Mean Corpuscular Volume 96.3 fL (80-100); Mean Platelet Volume 10.7 fL (7.4-10.4); Monocytes # (auto) 2.24 K/uL (0.11-0.59); Monocytes % (auto) 13.8 %; Neutrophils # (auto) 9.63 K/uL (1.4-6.5); Neutrophils % (auto) 59.3 %; Platelet Count 230 K/uL (130-400); RDW Coefficient of Variation 15.1 % (11.5-14.5); RDW Standard Deviation 52.4 fL (36.4-46.3); White Blood Count 16.22 K/uL (4.8-10.8)
[2021-05-17 18:08] LABS: Alanine Aminotransferase 10 U/L (12-78); Albumin Level 2.2 gm/dl (3.4-5.0); Aspartate Aminotransferase 12 U/L (15-37); BUN Creatinine Ratio 20.6 (10-20); Blood Urea Nitrogen 8 mg/dl (7-18); Calcium 8.6 mg/dl (8.5-10.1); Carbon Dioxide 27 mmol/L (21-32); Chloride 105 mmol/L (98-107); Est GFR (African American) 136.3 ml/min; Est GFR (Non-African American) 117.6 ml/min; Glucose 139 mg/dl (70-99); Potassium 2.8 mmol/L (3.5-5.1); Sodium 139 mmol/L (136-145)
[2021-05-17 18:11] LABS: Albumin Globulin Ratio 0.5 (0.9-2); Alkaline Phosphatase 85 U/L (45-117); Bilirubin,Total 0.3 mg/dl (0.2-1); Globulin 4.3 gm/dl (2.5-4.0); Total Protein 6.5 gm/dl (6.4-8.2)
[2021-05-17] MEDS ORDERED: SODIUM CHLORIDE 0.9% 1000ML 1,000 ML IV ONE (19:36)
--- NOTE | 2021-05-17 20:01 | Emergency Department Note ---
History of Present Illness General Chief complaint: Back Injury/Pain Stated complaint: NOT EATING OR DRINKING, LOWER BACK PAIN Time Seen by Provider: 05/17/21 19:35 Source: other (Caregiver) History of Present Illness Provider complaint: Diarrhea not eating or drinking 56-year-old female presents emergency department with caregiver for diarrhea low back pain and not eating well. The caregiver states that referred here by the PCP. No fevers. She reports diarrhea last week. Home Medications Medication Instructions Recorded Confirmed Type baclofen 10 mg tablet 5 mg PO TID 11/14/19 05/17/21 History baclofen 20 mg tablet 20 mg PO TID 11/14/19 05/17/21 History carbamide peroxide 6.5 % ear drops 5 - 10 drp OTIC (EAR) WK 11/14/19 05/17/21 History (Debrox) docusate calcium 240 mg capsule 240 mg PO DAILY@1600,2000 11/14/19 05/17/21 History fexofenadine 180 mg tablet 180 mg PO QAM 11/14/19 05/17/21 History (Jayleen Allergy) fluticasone propionate 50 2 spray INTRANASAL QAM 11/14/19 05/17/21 History mcg/actuation nasal spray,suspension ketoconazole 2 % topical cream 1 applic TOPICAL BID PRN 11/14/19 05/17/21 History metronidazole 0.75 % topical cream 1 applic TOPICAL BID 11/14/19 05/17/21 History omeprazole 40 mg capsule,delayed 40 mg PO BID 11/14/19 05/17/21 History release paroxetine HCl 40 mg tablet 40 mg PO QAM 11/14/19 05/17/21 History polyethylene glycol 3350 17 17 g PO QAM 11/14/19 05/17/21 History gram/dose oral powder quetiapine 200 mg tablet 200 mg PO .DAILY AT 8PM 11/14/19 05/17/21 History quetiapine 25 mg tablet 25 mg PO .DAILY AT 4PM 11/14/19 05/17/21 History vitamin B comp and C no.3 15 mg-10 1 cap PO QAM 11/14/19 05/17/21 History mg-50 mg-5 mg-300 mg capsule divalproex 500 mg tablet,extended See Rx Instructions .ROUTE .COMPLEX 12/03/19 05/17/21 History release 24 hr levothyroxine 25 mcg tablet 25 mcg PO 5XWK 06/28/20 05/17/21 History levothyroxine 50 mcg tablet 50 mcg PO 2XWK 06/28/20 05/17/21 History paroxetine HCl 20 mg tablet 20 mg PO QAM 06/28/20 05/17/21 History chlorhexidine gluconate 0.12 % 1 applic PO 2XWK 05/12/21 05/17/21 History mouthwash estradiol 1 applic VAGINAL 2XWK 05/12/21 05/17/21 History fluoride (sodium) 1.1 % dental 1 applic DENTAL BID 05/12/21 05/17/21 History cream (Denta 5000 Plus) mirtazapine 7.5 mg tablet 7.5 mg PO HS 05/12/21 05/17/21 History guaifenesin 100 mg/5 mL oral 200 mg PO Q4H PRN 05/17/21 05/17/21 History liquid (Tussin Expectorant) guaifenesin 600 mg tablet,extended 600 - 1,200 mg PO Q12H PRN 05/17/21 05/17/21 History release hydroxyzine HCl 25 mg tablet See Rx Instructions .ROUTE .COMPLEX 05/17/21 05/17/21 History Allergies Allergy/AdvReac Type Severity Reaction Status Date / Time amoxicillin Allergy Unknown UNKNOWN Verified 05/17/21 20:55 clavulanic acid Allergy Unknown UNKNOWN Verified 05/17/21 20:55 Past Med/Surg History Medical History Abdominal pain Calculus, kidney Cerebral palsy Colitis Constipation Dehydration Dysphasia Fever Influenza Intractable vomiting Mental retardation Pneumonia Refuses to eat Sepsis UTI (urinary tract infection) Surgical History No pertinent past surgical history Family History Other Cancer Hypertension Social History Smoking Status: Never smoker Second Hand Exposure: No; Hx Alcohol Use: No Hx Substance Use: No Preferred Language: Upper Sorbian Communication Ability: Unable Marketing Team Lead Required: No Beliefs That Will Affect Care: None Current Living Situation: Personal Care Facility Current Living Situation Comment: [facility] private room Feels Safe at Home: Yes Assistive Devices: Wheelchair Review of Systems Unobtainable due to cognitive status Physical Exam Vital Signs Vital Signs - 24 hr 05/17/21 16:58 05/17/21 20:30 05/17/21 21:00 Temperature 37.3 C Temperature Source Temporal Artery Scan Pulse Rate 111 H 109 H 107 H Pulse Rate from SpO2 Sensor 109 H 107 H Respiratory Rate 18 15 15 Respiratory Effort / Characteristics Non-Labored Spontaneous Respiratory Depth Normal Respiratory Pattern Regular Blood Pressure 107/67 101/68 94/71 L Blood Pressure Mean 80 79 78 Blood Pressure Position Sitting Pulse Oximetry 99 94 95 Oxygen Delivery Method Room Air Sepsis Recent Fever Within 48 Hours No Sepsis New/Unexplained Change in Mental Status N/A Sepsis Action Taken by Nursing No Action Required 05/17/21 21:33 05/17/21 23:00 05/17/21 23:30 Temperature Temperature Source Pulse Rate 111 H 105 H 98 H Pulse Rate from SpO2 Sensor 111 H 105 H 98 H Respiratory Rate 13 14 16 Respiratory Effort / Characteristics Respiratory Depth Respiratory Pattern Blood Pressure 102/62 126/84 124/66 Blood Pressure Mean 75 98 85 Blood Pressure Position Pulse Oximetry 93 94 92 Oxygen Delivery Method Sepsis Recent Fever Within 48 Hours Sepsis New/Unexplained Change in Mental Status Sepsis Action Taken by Nursing 05/18/21 00:00 Temperature Temperature Source Pulse Rate 95 H Pulse Rate from SpO2 Sensor 95 H Respiratory Rate 16 Respiratory Effort / Characteristics Respiratory Depth Respiratory Pattern Blood Pressure 127/79 Blood Pressure Mean 95 Blood Pressure Position Pulse Oximetry 93 Oxygen Delivery Method Sepsis Recent Fever Within 48 Hours Sepsis New/Unexplained Change in Mental Status Sepsis Action Taken by Nursing Physical Exam GENERAL: No acute distress. EYES: Conjunctivae and EOM are normal. Pupils are equal, round, and reactive to light. Right eye exhibits no discharge. Left eye exhibits no discharge. No scleral icterus. CV: Normal rate, regular rhythm, normal heart sounds and intact distal pulses. There is no peripheral edema. Palpable radial pulses bue. PULM/CHEST: Effort normal and breath sounds normal. No respiratory distress. No stridor. She has no wheezes. She has no rales. -Chest Wall: She exhibits no tenderness. ABD: The abdomen is soft. MUSC/SKEL: Contractions of the upper extremities at baseline per caregiver. LYMPH: No cervical lymphadenopathy. SKIN: She is not diaphoretic. Course Course 193: The patient was evaluated in room B11. A complete history and physical exam was performed Cardiac monitoring: An order was placed for continuous cardiac monitoring. The monitor shows a rate of 110 with sinus tachycardia rhythm 2245: Vital signs stable. Potassium 2.8. Lactic acid 2.3. Repeat lactic acid 2.3. Attempted to get urine sample on this patient however the patient had no urine when the patient was catheterized. Bladder scan showed only 45 cc of fluid. Of thought that patient was very dehydrated. IV fluids started for the patient. Potassium placement started for patient. White count 16. Given patient's lactic acid elevation white blood cell count, Empiric antibiotic started for the patient. CT of the abdomen shows no hydronephrosis. Patient be admitted to the [place] hospitalist team Dr. Alvarenga Administered Medications Ciprofloxacin (Cipro / D5w) 400 mg in 200 mls @ 100 mls/hr IV NOW STA; Protocol Stop: 05/18/21 00:40 Last Admin: 05/17/21 23:53 Dose: 100 mls/hr Documented by: [id number] Discontinued Medications Sodium Chloride (Nss 1000ml) 1,000 mls @ 999 mls/hr IV .Q1H1M ONE Stop: 05/17/21 20:36 Last Admin: 05/17/21 20:19 Dose: 999 mls/hr Documented by: [id number] Potassium Chloride (K [place] / Wtr) 10 meq in 100 mls @ 100 mls/hr IV Q1H [email or web address] Stop: 05/17/21 22:44 Last Infusion: 05/17/21 23:53 Dose: 0 mls/hr Documented by: [id number] Admin: 05/17/21 22:54 Dose: 100 mls/hr Documented by: [id number] Infusion: 05/17/21 22:33 Dose: 100 mls/hr Documented by: [id number] Admin: 05/17/21 21:33 Dose: 100 mls/hr Documented by: [id number] Potassium Chloride (Potassium Chloride 10 Meq Tabcr) 40 meq PO NOW STA Stop: 05/17/21 20:34 Last Admin: 05/17/21 20:57 Dose: 40 meq Documented by: [id number] Potassium Chloride (Potassium Chloride Crtab 20 Meq Tabcr) 20 meq PO NOW STA Stop: 05/17/21 23:33 Last Admin: 05/17/21 23:51 Dose: 20 meq Documented by: [id number] Medical Decision Making Laboratory Data Result diagrams: 05/17/21 17:13 05/17/21 17:13 Lab Results 05/17/21 05/17/21 05/17/21 Range/Units 17:13 17:13 17:13 WBC 16.22 H (4.8-10.8) K/uL RBC 3.80 L (4.2-5.4) M/uL Hgb 12.5 (12.0-16.0) g/dL Hct 36.6 L (37-47) % MCV 96.3 (80-100) fL MCH 32.9 (25-34) pg MCHC 34.2 (32-36) g/dL RDW Std Deviation 52.4 H (36.4-46.3) fL RDW Coeff of Christopher 15.1 H (11.5-14.5) % Plt Count 230 (130-400) K/uL MPV 10.7 H (7.4-10.4) fL Immature Gran % (Auto) 1.2 % Neut % (Auto) 59.3 % Lymph % (Auto) 25.5 % [place] % (Auto) 13.8 % Eos % (Auto) 0.1 % Baso % (Auto) 0.1 % Neut # (Auto) 9.63 H (1.4-6.5) K/uL Lymph # (Auto) 4.14 H (1.2-3.4) K/uL [place] # (Auto) 2.24 H (0.11-0.59) K/uL Eos # (Auto) 0.01 (0-0.5) K/uL Baso # (Auto) 0.01 (0-0.2) K/uL Immature Gran # (Auto) 0.19 H (0.00-0.02) K/uL Sodium 139 (136-145) mmol/L Potassium 2.8 L (3.5-5.1) mmol/L Chloride 105 (98-107) mmol/L Carbon Dioxide 27 (21-32) mmol/L Anion Gap 7.0 (3-11) BUN 8 (7-18) mg/dl Creatinine 0.38 L (0.6-1.2) mg/dl Est Cr Clr Drug Dosing Not Reportable Est GFR ( Amer) 136.3 ml/min Est GFR (Non-Af Amer) 117.6 ml/min BUN/Creatinine Ratio 20.6 H (10-20) Glucose 139 H (70-99) mg/dl Lactate (0.4-2.0) mmol/L Calcium 8.6 (8.5-10.1) mg/dl Magnesium 1.9 (1.8-2.4) mg/dl Total Bilirubin 0.3 (0.2-1) mg/dl AST 12 L (15-37) U/L ALT 10 L (12-78) U/L Alkaline Phosphatase 85 (45-117) U/L Total Protein 6.5 (6.4-8.2) gm/dl Albumin 2.2 L (3.4-5.0) gm/dl Globulin 4.3 H (2.5-4.0) gm/dl Albumin/Globulin Ratio 0.5 L (0.9-2) COVID-19 Eval Order SARS-CoV-2 (PCR) (Negative) 05/17/21 05/17/21 05/17/21 Range/Units 20:23 20:23 20:36 WBC (4.8-10.8) K/uL RBC (4.2-5.4) M/uL Hgb (12.0-16.0) g/dL Hct (37-47) % MCV (80-100) fL MCH (25-34) pg MCHC (32-36) g/dL RDW Std Deviation (36.4-46.3) fL RDW Coeff of Christopher (11.5-14.5) % Plt Count (130-400) K/uL MPV (7.4-10.4) fL Immature Gran % (Auto) % Neut % (Auto) % Lymph % (Auto) % [place] % (Auto) % Eos % (Auto) % Baso % (Auto) % Neut # (Auto) (1.4-6.5) K/uL Lymph # (Auto) (1.2-3.4) K/uL [place] # (Auto) (0.11-0.59) K/uL Eos # (Auto) (0-0.5) K/uL Baso # (Auto) (0-0.2) K/uL Immature Gran # (Auto) (0.00-0.02) K/uL Sodium (136-145) mmol/L Potassium (3.5-5.1) mmol/L Chloride (98-107) mmol/L Carbon Dioxide (21-32) mmol/L Anion Gap (3-11) BUN (7-18) mg/dl Creatinine (0.6-1.2) mg/dl Est Cr Clr Drug Dosing Est GFR ( Amer) ml/min Est GFR (Non-Af Amer) ml/min BUN/Creatinine Ratio (10-20) Glucose (70-99) mg/dl Lactate 2.3 H* (0.4-2.0) mmol/L Calcium (8.5-10.1) mg/dl Magnesium (1.8-2.4) mg/dl Total Bilirubin (0.2-1) mg/dl AST (15-37) U/L ALT (12-78) U/L Alkaline Phosphatase (45-117) U/L Total Protein (6.4-8.2) gm/dl Albumin (3.4-5.0) gm/dl Globulin (2.5-4.0) gm/dl Albumin/Globulin Ratio (0.9-2) COVID-19 Eval Order Covid19 at [facility] SARS-CoV-2 (PCR) NEGATIVE (Negative) 05/17/21 Range/Units 22:41 WBC (4.8-10.8) K/uL RBC (4.2-5.4) M/uL Hgb (12.0-16.0) g/dL Hct (37-47) % MCV (80-100) fL MCH (25-34) pg MCHC (32-36) g/dL RDW Std Deviation (36.4-46.3) fL RDW Coeff of Christopher (11.5-14.5) % Plt Count (130-400) K/uL MPV (7.4-10.4) fL Immature Gran % (Auto) % Neut % (Auto) % Lymph % (Auto) % [place] % (Auto) % Eos % (Auto) % Baso % (Auto) % Neut # (Auto) (1.4-6.5) K/uL Lymph # (Auto) (1.2-3.4) K/uL [place] # (Auto) (0.11-0.59) K/uL Eos # (Auto) (0-0.5) K/uL Baso # (Auto) (0-0.2) K/uL Immature Gran # (Auto) (0.00-0.02) K/uL Sodium (136-145) mmol/L Potassium (3.5-5.1) mmol/L Chloride (98-107) mmol/L Carbon Dioxide (21-32) mmol/L Anion Gap (3-11) BUN (7-18) mg/dl Creatinine (0.6-1.2) mg/dl Est Cr Clr Drug Dosing Est GFR ( Amer) ml/min Est GFR (Non-Af Amer) ml/min BUN/Creatinine Ratio (10-20) Glucose (70-99) mg/dl Lactate 2.3 H* (0.4-2.0) mmol/L Calcium (8.5-10.1) mg/dl Magnesium (1.8-2.4) mg/dl Total Bilirubin (0.2-1) mg/dl AST (15-37) U/L ALT (12-78) U/L Alkaline Phosphatase (45-117) U/L Total Protein (6.4-8.2) gm/dl Albumin (3.4-5.0) gm/dl Globulin (2.5-4.0) gm/dl Albumin/Globulin Ratio (0.9-2) COVID-19 Eval Order SARS-CoV-2 (PCR) (Negative) Imaging Data Radiologist's Impression: Chest X-Ray 05/17/21 20:37 XR chest 1V portable HISTORY: Weakness. COMPARISON: Chest and abdominal series 05/12/2021. FINDINGS: Patchy bibasilar densities, left greater than right have slightly progressed. No pneumothorax. No pleural fusions. The heart is normal in size. There is mild chronic interstitial thickening, unchanged. Rotated study. S- shaped scoliosis of the thoracolumbar spine. IMPRESSION: Slight progression of the patchy bibasilar densities. This could represent atelectasis or pneumonia. ACT 112: Negative or not required by law. Electronically signed by: Juan Galaviz M.D. 05/17/2021 8:52 PM PreliminaryFindingsOnly See Final Report For Complete Findings CT ABDOMEN & PELVIS Without Contrast: Comparison to 2014. The kidneys are unremarkable. No hydronephrosis or ureterolithiasis is seen. The urinarybladder is mostlydecompressed and unremarkable. The gallbladder is distended but nondilated. The gallbladder wall is blurred bymotion. No definite surrounding inflammation is seen. No calcified gallstones are identified. Cholecystitis cannot be excluded. The liver, pancreas, spleen, and adrenal glands appear unremarkable. Bowel loops are nondilated. There is a moderate amount of stool in the distal sigmoid colon measuring up to 5.8 cmwhich could indicate mild constipation. No acute inflammatoryprocess is seen involving the bowel. Current bilateral hip dysplasiawith erosion both femoral heads. There is ankylosis of the visualized lower thoracic spine and most of the lumbar spine associated with severe osteophytosis. No acute fracture is seen. Radiologist: Josse Clinton MD Study ready at 21:36 and initial results transmitted at 22:25 ECG Data Indication: + weakness Rate (beats per minute): 108 Rhythm: + sinus tachycardia ECG Intervals/blocks: + Normal HI and + Normal QT-c ECG ST segments: + Normal ST segments Additional Comments: QRS 72 MDM Narrative Vital signs stable. Potassium 2.8. Lactic acid 2.3. Repeat lactic acid 2.3. Attempted to get urine sample on this patient however the patient had no urine when the patient was catheterized. Bladder scan showed only 45 cc of fluid. Of thought that patient was very dehydrated. IV fluids started for the patient. Potassium placement started for patient. White count 16. Given patient's lactic acid elevation white blood cell count, Empiric antibiotic started for the patient. CT of the abdomen shows no hydronephrosis. Patient be admitted to the [facility] hospitalist team Dr. Alvarenga Impression & Plan Acute dehydration, Acute hypokalemia Discharge Plan Visit Data Chief Complaint: Back Injury/Pain Stated Complaint: NOT EATING OR DRINKING, LOWER BACK PAIN ED Provider: Artem Henson Discharge Problem: Acute dehydration, Acute hypokalemia Patient Disposition: Being Evaluated by Hospitalist Discharge Instructions Interventions: ED Discharge Assessment Last Done: 05/18/21 00:09 Forms Stand Alone Forms: My [facility] [employer] Prescriptions Prescriptions: No Action quetiapine 25 mg tablet 25 mg PO .DAILY AT 4PM RF: 0 docusate calcium 240 mg Capsule 240 mg PO DAILY@1600,2000 RF: 0 quetiapine 200 mg tablet 200 mg PO .DAILY AT 8PM RF: 0 fexofenadine [Jayleen Allergy] 180 mg Tablet 180 mg PO QAM RF: 0 omeprazole 40 mg capsule,delayed release(DR/EC) 40 mg PO BID RF: 0 baclofen 20 mg tablet 20 mg PO TID RF: 0 baclofen 10 mg tablet 5 mg PO TID RF: 0 metronidazole 0.75 % cream 1 applic TOPICAL BID RF: 0 carbamide peroxide [Debrox] 6.5 % Drops 5 - 10 drp OTIC (EAR) WK RF: 0 polyethylene glycol 3350 17 gram/dose powder 17 g PO QAM RF: 0 paroxetine HCl 40 mg tablet 40 mg PO QAM RF: 0 ketoconazole 2 % cream 1 applic TOPICAL BID PRN (Reason: Skin Irritation) RF: 0 fluticasone propionate 50 mcg/actuation spray,suspension 2 spray INTRANASAL QAM RF: 0 vitamin B comp and C no.3 49-23-69-5-300 mg Capsule 1 cap PO QAM RF: 0 paroxetine HCl 20 mg tablet 20 mg PO QAM RF: 0 levothyroxine 25 mcg tablet 25 mcg PO 5XWK RF: 0 levothyroxine 50 mcg tablet 50 mcg PO 2XWK RF: 0 divalproex 500 mg tablet extended release 24 hr See Rx Instructions .ROUTE .COMPLEX RF: 0 estradiol 0.01 % (0.1 mg/gram) cream 1 applic VAGINAL 2XWK RF: 0 mirtazapine 7.5 mg tablet 7.5 mg PO HS RF: 0 chlorhexidine gluconate 0.12 % mouthwash 1 applic PO 2XWK RF: 0 fluoride (sodium) [Denta 5000 Plus] 1.1 % Cream 1 applic DENTAL BID RF: 0 hydroxyzine HCl 25 mg Tablet See Rx Instructions .ROUTE .COMPLEX RF: 0 Mucus Relief ER 600 mg Tablet Extended Release 600 - 1,200 mg PO Q12H PRN (Reason: COUGH/CONGESTION) RF: 0 guaifenesin [Tussin Expectorant] 100 mg/5 mL Liquid 200 mg PO Q4H PRN (Reason: Cough) RF: 0 Referrals Referrals: Leighann Palumbo DO [Primary Care Provider] -
[2021-05-17] MEDS ORDERED: POTASSIUM CHLORIDE 10 MEQ TABCR PO STA (20:33)
--- NOTE | 2021-05-17 20:54 | XRay Report ---
XR chest 1V portable HISTORY: Weakness. COMPARISON: Chest and abdominal series 05/12/2021. FINDINGS: Patchy bibasilar densities, left greater than right have slightly progressed. No pneumothor ax. No pleural fusions. The heart is normal in size. There is mild chronic interstitial thickening, u nchanged. Rotated study. S-shaped scoliosis of the thoracolumbar spine. IMPRESSION: Slight progression of the patchy bibasilar densities. This could represent atelectasis or pneumonia. ACT 112: Negative or not required by law. Electronically signed by: Juan Galaviz M.D. 05/17/2021 8:52 PM
[2021-05-17] MEDS: POTASSIUM CHLORIDE / WTR 10 MEQ/100 ML PLCT IV SCH ×2 (21:33→22:54)
[2021-05-17] MEDS ORDERED: CIPROFLOXACIN / D5W 400 MG/200 ML BAG IV STA (22:41)
--- NOTE | 2021-05-17 23:11 | History & Physical Report ---
Date of Service May 17, 2021 Assessment & Plan (1) Acute dehydration: Plan: Patient is a 56 year old female with PMHx Spastic cerebral palsy, mild intellectual disability, GERD, depression, osteoporosis who presents with her roving inspector at the advice of her PCP in regards to a 1 week history of decreased appetite and diarrhea. Acute Dehydration secondary to poor PO intake and diarrhea -With limited PO intake x1 week -Received 1L NSS in ED -Will give another 1L LR bolus now and continue rehydration with NSS +20meqKCl 125ml/hr x2L -Diarrhea likely secondary to the 5.8cm fecal obstruction at the distal sigmoid colon -Will give daily miralax, if no improvement consider disimpaction vs enema vs suppository Hypokalemia -Secondary to diarrhea above -K 2.8 on admission -Given 40 meq KCl PO and 20 meq K riders in ED -Will give another 20 meq KCl PO now for total 80 -Recheck in AM Suspected Aspiration Pneumonia -With history of aspiration pneumonia -CXR with worsening bibasilar densities L>R -Will empirically cover with CTX and Flagyl, patient allergic to pcn -Repeat CXR in AM Hx Cerebral Palsy -Continue home regiment -Continue Baclofen -Continue Divalproex Anxiety/Depression -Continue Vistaril -Continue Mirtazapine -Continue Paxil -Continue Seroquel Hypothyroidism -Continue Levothyroxine Dispo: M/S Telemetry for IVF and IV abx FEN: Reg diet minced and moist, LR bolus x1L followed by NSS +20meq KCl 125ml/hr x2L DVT: Lovenox qd Code: Full History of Present Illness Chief Complaint: dehydration Primary Care Provider: Leighann Palumbo DO Patient is a 56 year old female with PMHx Spastic cerebral palsy, mild intellectual disability, GERD, depression, osteoporosis who presents with her roving inspector at the advice of her PCP in regards to a 1 week history of decreased appetite and diarrhea. Patient is non-verbal at baseline and history is provided by patient's roving inspector. She notes that for the past 1 week Beulah has not been herself and not eating or drinking as much. She also notes that she has been having on and off diarrhea. She states that she has had multiple issues in yash past in regards to her fluid intake and concerns for aspiration pneumonia. She has not noted a fever at home, but did have a temp of 99.6F 2-3 days ago. Med Hx: Spastic cerebral palsy, mild intellectual disability, GERD, depression, osteoporosis Allergies Allergy/AdvReac Type Severity Reaction Status Date / Time amoxicillin Allergy Unknown UNKNOWN Verified 05/17/21 20:55 clavulanic acid Allergy Unknown UNKNOWN Verified 05/17/21 20:55 Home Medications Medication Instructions Recorded Confirmed Type baclofen 10 mg tablet 5 mg PO TID 11/14/19 05/17/21 History baclofen 20 mg tablet 20 mg PO TID 11/14/19 05/17/21 History carbamide peroxide 6.5 % ear drops 5 - 10 drp OTIC (EAR) WK 11/14/19 05/17/21 History (Debrox) docusate calcium 240 mg capsule 240 mg PO DAILY@1600,199911/14/19 05/17/21 History fexofenadine 180 mg tablet 180 mg PO QAM 11/14/19 05/17/21 History (Jayleen Allergy) fluticasone propionate 50 2 spray INTRANASAL QA 11/14/19 05/17/21 History mcg/actuation nasal spray,suspension ketoconazole 2 % topical cream 1 applic TOPICAL BID PRN 11/14/19 05/17/21 History metronidazole 0.75 % topical cream 1 applic TOPICAL BID 11/14/19 05/17/21 History omeprazole 40 mg capsule,delayed 40 mg PO BID 11/14/19 05/17/21 History release paroxetine HCl 40 mg tablet 40 mg PO QAM 11/14/19 05/17/21 History polyethylene glycol 3350 17 17 g PO QAM 11/14/19 05/17/21 History gram/dose oral powder quetiapine 200 mg tablet 200 mg PO .DAILY AT 8PM 11/14/19 05/17/21 History quetiapine 25 mg tablet 25 mg PO .DAILY AT 4PM 11/14/19 05/17/21 History vitamin B comp and C no.3 15 mg-10 1 cap PO QAM 11/14/19 05/17/21 History mg-50 mg-5 mg-300 mg capsule divalproex 500 mg tablet,extended See Rx Instructions .ROUTE .COMPLEX 12/03/19 05/17/21 History release 24 hr levothyroxine 25 mcg tablet 25 mcg PO 5XWK 06/28/20 05/17/21 History levothyroxine 50 mcg tablet 50 mcg PO 2XWK 06/28/20 05/17/21 History paroxetine HCl 20 mg tablet 20 mg PO QAM 06/28/20 05/17/21 History chlorhexidine gluconate 0.12 % 1 applic PO 2XWK 05/12/21 05/17/21 History mouthwash estradiol 1 applic VAGINAL 2XWK 05/12/21 05/17/21 History fluoride (sodium) 1.1 % dental 1 applic DENTAL BID 05/12/21 05/17/21 History cream (Denta 5000 Plus) mirtazapine 7.5 mg tablet 7.5 mg PO HS 05/12/21 05/17/21 History guaifenesin 100 mg/5 mL oral 200 mg PO Q4H PRN 05/17/21 05/17/21 History liquid (Tussin Expectorant) guaifenesin 600 mg tablet,extended 600 - 1,200 mg PO Q12H PRN 05/17/21 05/17/21 History release hydroxyzine HCl 25 mg tablet See Rx Instructions .ROUTE .COMPLEX 05/17/21 05/17/21 History doxycycline monohydrate 100 mg 100 mg PO BID 10 Days #20 cap 05/18/21 Rx capsule Past Med/Surg History Medical History Abdominal pain Calculus, kidney Cerebral palsy Colitis Constipation Dehydration Dysphasia Fever Influenza Intractable vomiting Mental retardation Pneumonia Refuses to eat Sepsis UTI (urinary tract infection) Surgical History No pertinent past surgical history Family History Other Cancer Hypertension Social History Smoking Status: Never smoker Second Hand Exposure: No; Hx Alcohol Use: No Hx Substance Use: No Preferred Language: Indonesian Communication Ability: Impaired Communication Ability Comment: Able to respond yes/no sometimes Room Service Clerk Required: No Beliefs That Will Affect Care: None Current Living Situation: Personal Care Facility Current Living Situation Comment: [facility] with 24/7 caregiver Feels Safe at Home: Yes Safety Concerns: Feels Safe At This Time Assistive Devices: Mechanical Lift and Walker Review of Systems Review of Systems: Unobtainable due to mental health condition Physical Exam Constitutional: WD/WN, vitals as above + language barrier; no acute distress Eyes: PERRL, conjunctivae normal, anicteric sclerae ENMT: external ear and nose normal, oropharynx normal Neck: normal visual inspection Respiratory: normal respiratory effort; no labored breathing, no retractions and does not use accessory muscles Auscultation: + diminished lung sounds (slightly diminished in lower RL field ) and + rales (b/l worse in the RLL ) Cardiovascular: Rate/Rhythm: regular rate and regular rhythm Heart Sounds: normal S1 and normal S2 Vessels: normal peripheral pulses Gastrointestinal (Abdomen): normal bowel sounds, soft, nontender, no hepatosplenomegaly Musculoskeletal: Head/Neck/Chest: normocephalic and head atraumatic Extremities: + limited ROM of extremities Skin: no rashes, warm and dry Results & Data Results & Data ([facility]) Vital Signs (Past 12 Hours) Vital Signs Temp Pulse Resp BP Pulse Ox 05/17/21 21:33 111 H 13 102/62 93 05/17/21 21:00 107 H 15 94/71 L 95 05/17/21 20:30 109 H 15 101/68 94 05/17/21 16:58 37.3 C 111 H 18 107/67 99 Supervising Physician Co-Signing Physician Notes Attending addendum: I have physically seen this patient, have supervised the medical residents activities, and agree with the H&P unless as otherwise noted. Assessment and Plan: Dehydration- Multifactorial: Poor oral intake. Diarrheal losses. 1 L normal saline given in ED We will get an additional 1 L LR bolus, followed by normal saline plus KCl 20 mEq at 125 mils per hour x2 L 5.8 cm fecal obstruction of the distal sigmoid colon to be treated as noted Hypokalemia- potassium 2.8 upon admission Given Klor-Con 40 mEq p.o., and 20 mEq K riders in the ED Recheck laboratories in a.m. Presumptive aspiration pneumonia- Placed on ceftriaxone and Flagyl IV Remaining orders and notations as noted Resident Activity Tracking Resident Involvement: Resident Care Provided Care Provided: Adult Hospital Medicine
[2021-05-17] MEDS ORDERED: POTASSIUM CHLORIDE CRTAB 20 MEQ TABCR PO STA (23:32)
[2021-05-17] MEDS ORDERED: LACTATED RINGER'S 1,000 ML IV ONE (23:45)
[2021-05-18] MEDS ORDERED: ACETAMINOPHEN 325 MG TAB PO PRN (00:43)
[2021-05-18] MEDS ORDERED: ONDANSETRON INJ 2 MG/ML 2 ML VIAL IV PRN (00:43)
[2021-05-18] MEDS ORDERED: cefTRIAXone SODIUM 1,000 MG in DEXTROSE 5% 50 ML IV SCH (01:30)
[2021-05-18] MEDS ORDERED: ENOXAPARIN INJ 30 MG/0.3 ML SYR SQ SCH (02:00)
[2021-05-18] MEDS: NSS + 20MEQ KCL 20 MEQ/1,000 ML BAG IV SCH ×2 (02:33→10:35)
[2021-05-18] MEDS: metroNIDAZOLE 500 MG/100 ML BAG IV SCH ×2 (03:14→09:25)
[2021-05-18] MEDS ORDERED: LEVOTHYROXINE SODIUM 25 MCG TABLET PO SCH (06:30)
[2021-05-18 06:56] LABS: Basophils # (auto) 0.02 K/uL (0-0.2); Basophils % (auto) 0.1 %; Eosinophils # (auto) 0.08 K/uL (0-0.5); Eosinophils % (auto) 0.5 %; Hematocrit (blood only) 33.5 % (37-47); Hemoglobin 11.3 g/dL (12.0-16.0); Immature Granulocytes # (auto) 0.14 K/uL (0.00-0.02); Immature Granulocytes % (auto) 0.9 %; Lymphocytes # (auto) 4.92 K/uL (1.2-3.4); Lymphocytes % (auto) 32.2 %; Mean Corpuscular Hemoglobin 32.7 pg (25-34); Mean Corpuscular Hgb Conc 33.7 g/dL (32-36); Mean Corpuscular Volume 96.8 fL (80-100); Mean Platelet Volume 10.7 fL (7.4-10.4); Monocytes # (auto) 2.21 K/uL (0.11-0.59); Monocytes % (auto) 14.5 %; Neutrophils # (auto) 7.89 K/uL (1.4-6.5); Neutrophils % (auto) 51.8 %; Platelet Count 209 K/uL (130-400); RDW Coefficient of Variation 15.5 % (11.5-14.5); RDW Standard Deviation 54.3 fL (36.4-46.3); Red Blood Count 3.46 M/uL (4.2-5.4); White Blood Count 15.26 K/uL (4.8-10.8)
[2021-05-18 07:25] LABS: Alanine Aminotransferase 8 U/L (12-78); Albumin Level 1.9 gm/dl (3.4-5.0); Aspartate Aminotransferase 13 U/L (15-37); BUN Creatinine Ratio 19.7 (10-20); Blood Urea Nitrogen 3 mg/dl (7-18); Calcium 7.9 mg/dl (8.5-10.1); Carbon Dioxide 25 mmol/L (21-32); Chloride 116 mmol/L (98-107); Creatinine Clr Calc Pharmacy 215.7 ml/min; Est GFR (African American) > 150.0 ml/min; Est GFR (Non-African American) > 150.0 ml/min; Glucose 82 mg/dl (70-99); Magnesium 1.8 mg/dl (1.8-2.4); Potassium 4.7 mmol/L (3.5-5.1); Sodium 144 mmol/L (136-145)
[2021-05-18 07:29] LABS: Albumin Globulin Ratio 0.5 (0.9-2); Alkaline Phosphatase 76 U/L (45-117); Bilirubin,Total 0.2 mg/dl (0.2-1); Globulin 3.9 gm/dl (2.5-4.0); Total Protein 5.8 gm/dl (6.4-8.2)
[2021-05-18] MEDS: BACLOFEN 20 MG TAB PO SCH ×2 (07:48→15:28)
[2021-05-18] MEDS: hydrOXYzine HCl 25 MG TAB PO SCH ×2 (07:49→15:29)
[2021-05-18] MEDS ORDERED: DIVALPROEX EXTENDED RELEASE 500 MG TAB PO SCH ×2 (08:00→20:00)
--- NOTE | 2021-05-18 08:13 | XRay Report ---
XR chest 1V portable HISTORY: Pneumonia. Weakness. COMPARISON: Chest 05/17/2021. FINDINGS: Patchy bibasilar linear densities have slightly improved. There are low lung volumes. The h eart is normal in size. No pleural effusions. No pneumothorax. Rotated study. IMPRESSION: Slight improvement in the patchy bibasilar linear densities. This favors atelectasis. A pneumonia cou ld also have a similar appearance. ACT 112: Negative or not required by law. Electronically signed by: Juan Galaviz M.D. 05/18/2021 8:11 AM
--- NOTE | 2021-05-18 08:13 | CT Scan Report ---
CT SCAN OF THE ABDOMEN AND PELVIS WITHOUT IV CONTRAST CLINICAL HISTORY: Fever. Back pain. COMPARISON STUDY: Abdominal CT dated 03/29/2015. TECHNIQUE: CT scan of the abdomen and pelvis is performed from the lung bases to the proximal femora. Images are reviewed in the axial, sagittal, and coronal planes. IV contrast was not administered for this examination. Note that the examination was performed in suboptimal fashion lateral and IV contr ast. The examination is compromised by motion artifact, as well as by streak artifact from the arms w hich could not be located within the abdomen. A dose lowering technique was utilized adhering to the principles of ALARA. CT DOSE: 455.98 mGy.cm FINDINGS: Lung bases: The heart is normal in size and without pericardial effusion. Lung bases are significantl y motion degraded. The lung bases are grossly clear noting bibasilar scarring/atelectasis. There is a small hiatal hernia. Liver: The unenhanced liver is normal in size, contour, and attenuation. There is no intrahepatic raffi iary ductal dilatation. Gallbladder: The gallbladder appears distended and thick-walled with surrounding infiltration. Spleen: Normal in size and attenuation. Pancreas: The unenhanced pancreas is moderately atrophic and grossly unremarkable. Adrenal glands: Unremarkable. Kidneys: The unenhanced kidneys are normal in size and without hydronephrosis. There are no renal madelin culi identified. There is no evidence of contour deforming renal mass lesion. Abdominal vasculature: The abdominal aorta is normal in course and caliber noting scattered foci of a therosclerotic calcification. Bowel: There is rectosigmoid fecal retention and moderate constipation. No bowel obstruction is seen. The appendix is not visualized. Peritoneum: There is no intraperitoneal free air or abdominal ascites. Lymphadenopathy: None. Pelvic viscera: The bladder, uterus, and adnexa are normal as visualized. Skeletal structures: The skeletal structures are osteopenic. Advanced degenerative change and scolios is is noted in the thoracolumbar spine. There is chronic deformity of the hips and bony pelvis. No ly tic or blastic lesions are seen. Soft tissues: There is diffuse atrophy of the regional musculature. IMPRESSION: 1. Suboptimal examination without oral and IV contrast. The examination is also severely degraded by streak and motion artifact. 2. Abnormal appearing gallbladder. Acute cholecystitis is not excluded. Right upper quadrant ultrasou nd is recommended for further evaluation. 3. Rectosigmoid fecal retention and moderate constipation. No bowel obstruction is seen. 4. Additional findings as above. ACT 112: Negative or not required by law. Electronically signed by: Capo Haskins M.D. 05/18/2021 8:12 AM
[2021-05-18] MEDS ORDERED: PANTOprazole 40 MG TAB PO SCH (09:00)
[2021-05-18] MEDS ORDERED: POLYETHYLENE (MIRALAX) 17 GM PACK PO SCH (09:00)
[2021-05-18] MEDS ORDERED: PARoxetine HCL 20 MG TAB PO SCH ×2 (09:00)
[2021-05-18] MEDS: BACLOFEN 10 MG TAB PO SCH ×2 (09:04→15:28)
--- NOTE | 2021-05-18 15:49 | Communication Note ---
Date of Service: May 18, 2021 By CMS guidelines, a determination that the admission or continued stay is not medically necessary has been made by a member of the UR committee and kusum retana for this hospital stay, therefore a Code 44 will be completed and the Inpatient admission will be changed to outpatient.
[2021-05-18] MEDS ORDERED: QUEtiapine FUMARATE 25 MG TABLET PO SCH (16:00)
[2021-05-18] MEDS ORDERED: metroNIDAZOLE 500 MG/100 ML BAG IV ONE (16:30)
--- NOTE | 2021-05-18 17:46 | Discharge Summary ---
Date of Service May 18, 2021 Admission HPI Per Admitting Provider Patient is a 56 year old female with PMHx Spastic cerebral palsy, mild intellectual disability, GERD, depression, osteoporosis who presents with her paper twister at the advice of her PCP in regards to a 1 week history of decreased appetite and diarrhea. Patient is non-verbal at baseline and history is provided by patient's paper twister. She notes that for the past 1 week Beulah has not been herself and not eating or drinking as much. She also notes that she has been having on and off diarrhea. She states that she has had multiple issues in yash past in regards to her fluid intake and concerns for aspiration pneumonia. She has not noted a fever at home, but did have a temp of 99.6F 2-3 days ago. Med Hx: Spastic cerebral palsy, mild intellectual disability, GERD, depression, osteoporosis Admission Exam Per Admitting Provider Constitutional: WD/WN, vitals as above + language barrier; no acute distress Eyes: PERRL, conjunctivae normal, anicteric sclerae ENMT: external ear and nose normal, oropharynx normal Neck: normal visual inspection Respiratory: normal respiratory effort; no labored breathing, no retractions and does not use accessory muscles Auscultation: + diminished lung sounds (slightly diminished in lower RL field ) and + rales (b/l worse in the RLL ) Cardiovascular: Rate/Rhythm: regular rate and regular rhythm Heart Sounds: normal S1 and normal S2 Vessels: normal peripheral pulses Gastrointestinal (Abdomen): normal bowel sounds, soft, nontender, no hepatosplenomegaly Musculoskeletal: Head/Neck/Chest: normocephalic and head atraumatic Extremities: + limited ROM of extremities Skin: no rashes, warm and dry Principal Diagnosis Aspiration pneumonia, dehydration Discharge Exam Constitutional WD/WN, vitals as above + language barrier; no acute distress Eyes PERRL, conjunctivae normal, anicteric sclerae Neck normal visual inspection Respiratory normal respiratory effort; no labored breathing, no retractions and does not use accessory muscles Auscultation: + diminished lung sounds (slightly diminished in lower RL field ) and + rales (b/l worse in the RLL ) Cardiovascular Rate/Rhythm: regular rate and regular rhythm Heart Sounds: normal S1 and normal S2 Gastrointestinal (Abdomen) normal bowel sounds, soft, nontender, no hepatosplenomegaly Musculoskeletal Head/Neck/Chest: normocephalic Extremities: + limited ROM of extremities Skin no rashes, warm and dry Discharge Data Allergies Allergy/AdvReac Type Severity Reaction Status Date / Time amoxicillin Allergy Unknown UNKNOWN Verified 05/17/21 20:55 clavulanic acid Allergy Unknown UNKNOWN Verified 05/17/21 20:55 Consultations 05/17/21 22:42 ED Decision to Admit Stat Ordered Studies 05/17/21 19:38 CT abd pelvis wo con Urgent Hospital Course (1) Acute dehydration: Patient is a 56 year old female with PMHx Spastic cerebral palsy, mild intellectual disability, GERD, depression, osteoporosis who presents with her paper twister at the advice of her PCP in regards to a 1 week history of decreased appetite and diarrhea. Acute Dehydration secondary to poor PO intake and diarrhea -With limited PO intake x1 week -Received 1L NSS in ED -Given maintenance IV fluids throughout the day. -Diarrhea likely secondary to the 5.8cm fecal obstruction at the distal sigmoid colon, which has been passed. -Recommend continuing MiraLAX at discharge. Hypokalemia -Secondary to diarrhea above -K 2.8 on admission, 4.4 on discharge. Resolved. -Given 40 meq KCl PO and 20 meq K riders in ED Suspected Aspiration Pneumonia -With history of aspiration pneumonia -CXR with worsening bibasilar densities L>R -Will empirically cover with CTX and Flagyl, patient sent home on doxycycline for 7 days. Hx Cerebral Palsy -Continue home regiment -Continue Baclofen -Continue Divalproex Anxiety/Depression -Continue Vistaril -Continue Mirtazapine -Continue Paxil -Continue Seroquel Hypothyroidism -Continue Levothyroxine Dispo: Back to care facility FEN: Reg diet minced and moist DVT: Lovenox qd Code: Full Total Time Total Time Spent Total Time Spent (In Minutes): <30 Discharge Plan Discharge Items Patient Disposition: Home - Self-Care Reason For Visit: HYPOKALEMIA,DEHYDRATION,ASPIRATION PNA Discharge Diagnosis: Dehydration, Pneumonia secondary to aspiration Condition on Discharge: Fair Activity: Resume your previous activity Non-emergency contact: Primary Care Provider Call non-emergency contact if: you have any medication questions, your symptoms worsen and your temperature is above 101 Follow-up/Referrals: Leighann Palumbo DO [Primary Care Provider] - Diet: Regular Addtl Attending Provider Instructions: You were seen in the hospital for nausea, vomiting, and diarrhea. You had a wor k-up done in the ER which revealed the diagnosis of dehydration, aspiration pneumonia, and fecal impaction. While you are here you were treated with IV fluids for the dehydration, antibiotics for the pneumonia, and laxatives for the fecal impaction. After treatment was started your symptoms improved and it was deemed that you were medically stable for discharge. You will be sent home with antibiotics sent to your pharmacy to continue treatment for the pneumonia. Please follow-up with your primary care provider within 1 week. It was a pleasure to be a part of your care and we wish you the best in your recovery. Pending Studies at Discharge: No Stand-Alone Forms: My [facility] ishBowl, Smoking Cessation Medications and DC Order Prescriptions: New doxycycline monohydrate 100 mg capsule 100 mg PO BID 10 Days Qty: 20 RF: 0 Continued quetiapine 25 mg tablet 25 mg PO .DAILY AT 4PM RF: 0 docusate calcium 240 mg Capsule 240 mg PO DAILY@1600,2000 RF: 0 quetiapine 200 mg tablet 200 mg PO .DAILY AT 8PM RF: 0 fexofenadine [Jayleen Allergy] 180 mg Tablet 180 mg PO QAM RF: 0 omeprazole 40 mg capsule,delayed release(DR/EC) 40 mg PO BID RF: 0 baclofen 20 mg tablet 20 mg PO TID RF: 0 baclofen 10 mg tablet 5 mg PO TID RF: 0 metronidazole 0.75 % cream 1 applic TOPICAL BID RF: 0 carbamide peroxide [Debrox] 6.5 % Drops 5 - 10 drp OTIC (EAR) WK RF: 0 polyethylene glycol 3350 17 gram/dose powder 17 g PO QAM RF: 0 paroxetine HCl 40 mg tablet 40 mg PO QAM RF: 0 ketoconazole 2 % cream 1 applic TOPICAL BID PRN (Reason: Skin Irritation) RF: 0 fluticasone propionate 50 mcg/actuation spray,suspension 2 spray INTRANASAL QAM RF: 0 vitamin B comp and C no.3 [id number] mg Capsule 1 cap PO QAM RF: 0 paroxetine HCl 20 mg tablet 20 mg PO QAM RF: 0 levothyroxine 25 mcg tablet 25 mcg PO 5XWK RF: 0 levothyroxine 50 mcg tablet 50 mcg PO 2XWK RF: 0 divalproex 500 mg tablet extended release 24 hr See Rx Instructions .ROUTE .COMPLEX RF: 0 estradiol 0.01 % (0.1 mg/gram) cream 1 applic VAGINAL 2XWK RF: 0 mirtazapine 7.5 mg tablet 7.5 mg PO HS RF: 0 chlorhexidine gluconate 0.12 % mouthwash 1 applic PO 2XWK RF: 0 fluoride (sodium) [Denta 5000 Plus] 1.1 % Cream 1 applic DENTAL BID RF: 0 hydroxyzine HCl 25 mg Tablet See Rx Instructions .ROUTE .COMPLEX RF: 0 guaifenesin 600 mg Tablet Extended Release 600 - 1,200 mg PO Q12H PRN (Reason: COUGH/CONGESTION) RF: 0 guaifenesin [Tussin Expectorant] 100 mg/5 mL Liquid 200 mg PO Q4H PRN (Reason: Cough) RF: 0 Discharge Orders: Discharge Order (Routine); Ordered 05/18/21 Ordered By: Faisal Graham Admission Data Admit Date/Time: 05/17/21 23:32 Attending Provider: Ren Montoya Admit Provider: Tigre Luque Primary Care Provider: Leighann Palumbo Other Providers: Ren Montoya Other Interventions: Discharge Summary Assessment (RN) Last Done: 05/18/21 17:20 Supervising Physician Co-Signing Physician Notes I personally examined the patient and verified all toth points of history and exam, discussed case, and agree with decision making with Dr Graham no meaningful HPI or ROS but appearing better Vitals noted, in general she appears awake and in no distress. HEENT normocephalic atraumatic mucous membranes moist. Lungs are clear somewhat poor air entry but mostly due to poor effortno rales rhonchi or wheezes. Dehydration/constipation/hypokalemiaimproved. Overall, appears improving now that her bowels are moving. Stable for home with outpatient follow- up/outpatient lab work. Aspiration pneumonia with possible sepsis present on admissionsepsis would have been mild at worst, but technically she did meet SIRS criteria. Appears stable for home finishing out a course of p.o. antibiotics. Otherwise as above
[2021-05-18] MEDS ORDERED: QUEtiapine FUMARATE 200 MG TAB PO SCH (20:00)
[2021-05-18] MEDS ORDERED: hydrOXYzine HCl 25 MG TAB PO SCH (20:00)
--- NOTE | 2021-05-18 20:16 | Billing Data ---
Date of Service May 18, 2021 Coding Level of Care Code D/C DAY MANAGEMENT <30 MINS
--- NOTE | 2021-05-18 20:34 | Billing Data ---
Date of Service May 18, 2021 Coding Level of Care Code INT OBSERVATION CARE 70M LVL 3
[2021-05-18] MEDS ORDERED: MIRTAZAPINE TAB 15 MG TAB PO SCH (21:00)
--- NOTE | 2021-05-19 05:55 | Electrocardiogram Report ---
Test Reason : Blood Pressure : / mmHG Vent. Rate : 108 BPM Atrial Rate : 108 BPM P-R Int : 124 ms QRS Dur : 072 ms QT Int : 364 ms P-R-T Axes : 049 021 026 degrees QTc Int : 487 ms Sinus tachycardia Nonspecific ST abnormality Prolonged QT When compared with ECG of 28-JUN-2020 17:39, No significant change Confirmed by Patrice Drake ([id number]) on 05/19/2021 5:54:55 AM Referred By: REFERRED SELF Confirmed By:Patrice Drake
[2021-05-21] MEDS ORDERED: LEVOTHYROXINE SODIUM 50 MCG TABLET PO SCH (06:30)
== END 2021-05-18 18:20 | disposition home or self-care (01) ==
LOC: ED 16:24 → 2N 23:32 → INTOOBSV 23:32 → 2N 05-18 00:09

== ENCOUNTER 2022-10-09 10:44 | Inpatient (IN) ==
--- NOTE | 2022-10-09 11:13 | Emergency Department Note ---
Impression & Plan Vomiting and diarrhea, Cerebral palsy, Acute dehydration ED Provider Note NAME: DEBBIE STREETER AGE: 57 SEX: F : 1965 ARRIVES VIA: Walk-In INFORMANT: Patient, ED PROVIDER(S): Abiodun Nguyen MD CHIEF COMPLAINT: Vomiting, diarrhea MEDICAL DECISION MAKING: Patient presents with caregiver due to concern for vomiting and diarrhea. Blood work is obtained along with the patient receiving IV fluids and IV Zofran. The patient was ordered a CT of the abdomen pelvis with IV contrast. Patient does have an elevated white count of 19 with normal H&H and platelet count. The patient was ordered blood cultures procalcitonin and cefepime Flagyl due to concern for possibility of aspiration versus intra-abdominal pathology. Patient was ordered additional 1 L of IV fluids. The patient's kidney function is unremarkable but with prerenal azotemia consistent with dehydration. Stool studies were ordered patient has not yet had a bowel movement. Urinalysis does not show obvious infection but does show ketones consistent with dehydration. COVID flu and RSV negative. Patient's chest x-ray does not show any obvious pneumonia. The patient CT abdomen pelvis shows stent is present within the CBD with no biliary ductal dilatation. There is some gallbladder and duodenal wall thickening with mild inflammatory stranding. I did speak with on-call gastroenterology Yrn with [facility] who did discuss the patient's case with Dr. Swenson with regard to the patient's axial study. They do not recommend additional imaging but just to trend her liver function enzymes. I did speak with the on-call hospitalist Dr. Nielsen and the patient was admitted to the medicine service. Prior /Outside records reviewed: I did review GI note from May 09, [address] Burgso patient did have an ERCP with EUS guided gallbladder drainage using an axial stent Differential diagnosis: Gastroenteritis, food borne illness, infections, appendicitis, diverticulitis, inflammatory bowel disease, obstruction, GI bleed, biliary pathology, volvulus, as well as other pathologies. Diagnostics, as interpreted by me: ECG: None Cardiac monitoring: An order was placed for continuous cardiac monitoring. The monitor shows a rate of 114 with tachycardic and regular rhythm. Patient was placed on pulse oximetry Medical decision rules: None Imaging studies: See below HPI: Patient presents due to concern for vomiting. The patient's history is obtained from the caregiver at bedside as the patient is essentially nonverbal and has a history of cerebral palsy. The caregiver relates that the patient was found this morning with vomitus on her bed and that she had been gagging. The patient does have a known history of a stent and they were concerned about the stents in her gallbladder. No reported falls the patient typically is able to take liquids as well as pured foods. The patient's roommate recently and they are unsure as with or not it was an infectious etiology whether or not the patient could have also contracted something. No recent changes in diet or medications. The caregiver also notes that the patient did have large-volume foul-smelling diarrhea this morning and the patient does get dehydrated very quickly. Patient is wheelchair-bound PAST MEDICAL HISTORY: See Below PAST SURGICAL HISTORY: See Below SOCIAL HISTORY: See Below HOME MEDICATIONS: See Below ALLERGIES: See Below VITALS: See Below PHYSICAL EXAMINATION: GENERAL: NAD, wearing a mask, non-toxic. EYE EXAM: Normal conjunctiva. PERRL, no anisocoria and EOM's grossly intact w/o pain. NECK: Supple, no nuchal rigidity, no adenopathy, non-tender. No signs of meningismus. FROM of the neck with good chin to chest and neck extension. No stridor. LUNGS: Clear to auscultation. Normal chest wall mechanics. HEART: Tachycardic and regular, no MRG. ABDOMEN: Abdomen soft, appears to grimace to upper abdominal palpation, no grimace with lower abdominal palpation, normo-active bowel sounds, no masses, no rebound or guarding. BACK: No CVA TTP. SKIN: No rashes and no bruising. UPPER EXTREMITIES: Upper extremities are grossly normal. LOWER EXTREMITIES: Grossly normal, no edema. NEURO EXAM: Awake and alert does not follow commands, able to weakly move extremities. Past Med/Surg History Medical History Abdominal pain Cerebral palsy Colitis Constipation Dehydration Dysphasia GERD (gastroesophageal reflux disease) History of kidney stones Intractable vomiting Mental retardation Refuses to eat Sepsis Surgical History Hx of colonoscopy Surgical history unknown Family History Father Diabetes Other Asthma Cancer Hypertension No family history of adverse response to anesthesia No family history of bleeding disorder Social History Smoking Status: Never smoker Second Hand Exposure: No; Hx Alcohol Use: No Hx Substance Use: No Preferred Language: Nepali Communication Ability: Impaired Intellectual Property Counsel Required: No Beliefs That Will Affect Care: None Current Living Situation: Personal Care Facility Current Living Situation Comment: [facility] with 08/04 caregiver current occupational status: disabled Feels Safe at Home: Yes during the past year weight has: decreased > 10 lbs Assistive Devices: Mechanical Lift and Walker Allergies Allergies Allergy/AdvReac Type Severity Reaction Status Date / Time amoxicillin Allergy Unknown UNKNOWN Verified 10/09/22 15:47 clavulanic acid Allergy Unknown UNKNOWN Verified 10/09/22 15:47 Home Meds Home Medications Medication Instructions Recorded Confirmed baclofen 10 mg tablet 5 mg PO TID 11/14/19 10/09/22 baclofen 20 mg tablet 20 mg PO TID 11/14/19 10/09/22 carbamide peroxide 6.5 % ear drops 5 - 10 drp otic (ear) WK 11/14/19 10/09/22 (Debrox) docusate calcium 240 mg capsule 240 mg PO DAILY@1600,199911/14/19 10/09/22 fexofenadine 180 mg tablet 180 mg PO QAM 11/14/19 10/09/22 (Jayleen Allergy) fluticasone propionate 50 2 spray intranasal QAM 11/14/19 10/09/22 mcg/actuation nasal spray,suspension ketoconazole 2 % topical cream 1 applic topical BID PRN Rash 11/14/19 10/09/22 metronidazole 0.75 % topical cream 1 applic topical BID 11/14/19 10/09/22 omeprazole 40 mg capsule,delayed 40 mg PO BID 11/14/19 10/09/22 release paroxetine HCl 40 mg tablet 40 mg PO QAM 11/14/19 10/09/22 quetiapine 200 mg tablet 200 mg PO .DAILY AT 8PM 11/14/19 10/09/22 quetiapine 25 mg tablet 25 mg PO .AT 8PM & 4PM 11/14/19 10/09/22 vitamin B comp and C no.3 15 mg-10 1 cap PO QAM 11/14/19 10/09/22 mg-50 mg-5 mg-300 mg capsule divalproex 500 mg tablet,extended See Rx Instructions .Route .COMPLEX 12/03/19 10/09/22 release 24 hr levothyroxine 25 mcg tablet 25 mcg PO UD 06/28/20 10/09/22 paroxetine HCl 20 mg tablet 20 mg PO QAM 06/28/20 10/09/22 estradiol 0.01% (0.1 mg/gram) 1 applic vaginal 2XWK 05/12/21 10/09/22 vaginal cream mirtazapine 7.5 mg tablet 7.5 mg PO HS 05/12/21 10/09/22 hydroxyzine HCl 25 mg tablet See Rx Instructions .Route .COMPLEX 05/17/21 10/09/22 bisacodyl 10 mg rectal suppository 10 mg DC DAILY PRN Constipation 01/31/22 10/09/22 famotidine 20 mg tablet 20 mg PO HS 01/31/22 10/09/22 multivitamin (Daily-Donovan tablet) 1 tab PO DAILY 01/31/22 10/09/22 guaifenesin 600 mg tablet, 600 - 1,200 mg PO Q12H PRN mucus 03/28/22 10/09/22 extended release 12 hr (Mucus Relief ER) glycerin (adult) 1 supp DC DAILY PRN Constipation 10/09/22 10/09/22 guaifenesin 100 mg/5 mL oral liquid 200 mg PO . Q 4-6 HOURS PRN Cough 10/09/22 10/09/22 levothyroxine 50 mcg tablet 50 mcg PO UD 10/09/22 10/09/22 naproxen sodium 220 mg capsule 220 mg PO .Q 8-12 HOURS PRN while 10/09/22 10/09/22 syptoms last phenolphthalein-docusate sodium 90 3 cap PO HS PRN .no BM in 2 days 10/09/22 10/09/22 mg-83 mg capsule polyethylene glycol 3350 17 17 g PO QAM 10/09/22 10/09/22 gram/dose oral powder (Miralax) Results & Data (ED) Vital Signs Vital Signs - 24 hr 10/09/22 10:55 Temperature 37.0 C Temperature Source Temporal Artery Scan Pulse Rate 114 H Pulse Rhythm Regular Respiratory Rate 16 Respiratory Effort / Characteristics Non-Labored Spontaneous Respiratory Depth Normal Blood Pressure 122/75 Blood Pressure Mean 90 Pulse Oximetry 97 Oxygen Delivery Method Room Air Sepsis Recent Fever Within 48 Hours No Sepsis New/Unexplained Change in Mental Status No Sepsis Action Taken by Nursing No Action Required Home Medications Current Medication List: was personally reviewed by me Laboratory Data Attestation: I reviewed the patient's lab results. 10/09/22 12:30 10/09/22 12:30 Lab Results 10/09/22 10/09/22 10/09/22 Range/Units 12:10 12:30 12:30 WBC 19.96 H (4.8-10.8) K/ul RBC 3.97 (3.93-5.22) M/uL Hgb 12.0 (12.0-16.0) g/dl Hct 35.2 (34.1-44.9) % MCV 88.7 (80.0-100.0) fL MCH 30.2 (25.0-34.0) pg MCHC 34.1 (32.0-36.0) g/dL RDW Std Deviation 49.6 H (36.4-46.3) fL RDW Coeff of Christopher 15.2 H (11.5-14.5) % Plt Count 351 (130-400) K/uL MPV 10.4 (9.4-12.3) fL Immature Gran % (Auto) 0.4 % Neut % (Auto) 73.8 % Lymph % (Auto) 16.4 % Hutchinson % (Auto) 9.1 % Eos % (Auto) 0.1 % Baso % (Auto) 0.2 % Neut # (Auto) 14.75 H (1.4-6.5) K/uL Lymph # (Auto) 3.28 (1.2-3.4) K/uL Hutchinson # (Auto) 1.81 H (0.24-0.82) K/uL Eos # (Auto) 0.01 (0-0.50) K/uL Baso # (Auto) 0.03 (0-0.2) K/uL Immature Gran # (Auto) 0.08 H (0.00-0.02) K/uL Sodium 140 (136-145) mmol/L Potassium 3.9 (3.5-5.1) mmol/L Chloride 103 (98-107) mmol/L Carbon Dioxide 29 (21-32) mmol/L Anion Gap 8 (3-11) BUN 12 (6-23) mg/dl Creatinine 0.34 L (0.6-1.2) mg/dl Est Cr Clr Drug Dosing 87.4 ml/min Est GFR ( Amer) 140.4 ml/min Est GFR (Non-Af Amer) 121.1 ml/min BUN/Creatinine Ratio 35.3 H (10-20) Glucose 117 H (70-99(Fasting)) mg/dl Calcium 9.3 (8.5-10.1) mg/dl Magnesium 1.9 (1.7-2.4) mg/dl Total Bilirubin 0.3 (0.2-1.0) mg/dl AST 16 (13-39) U/L ALT 6 L (7-52) U/L Alkaline Phosphatase 109 H (34-104) U/L Total Protein 7.1 (6.0-8.3) gm/dl Albumin 3.3 L (3.4-5.0) gm/dl Globulin 3.8 (2.5-4.0) gm/dl Albumin/Globulin Ratio 0.9 (0.9-2) Lipase 6 L (11-82) U/L Urine Color Urine Appearance (Clear) Urine pH (4.5-7.5) Ur Specific K[place]ett (1.000-1.030) Urine Protein (Negative) Urine Glucose (UA) (Negative) Urine Ketones (Negative) Urine Blood (Negative) Urine Nitrite (Negative) Urine Bilirubin (Negative) Urine Urobilinogen (Negative) Ur Leukocyte Esterase (Negative) SARS-CoV-2 (PCR) NEGATIVE (Negative) Influenza Type A (PCR) Negative (Neg) Influenza Type B (PCR) Negative (Neg) RSV (RT-PCR) Negative (Neg) 10/09/22 Range/Units 14:04 WBC (4.8-10.8) K/ul RBC (3.93-5.22) M/uL Hgb (12.0-16.0) g/dl Hct (34.1-44.9) % MCV (80.0-100.0) fL MCH (25.0-34.0) pg MCHC (32.0-36.0) g/dL RDW Std Deviation (36.4-46.3) fL RDW Coeff of Christopher (11.5-14.5) % Plt Count (130-400) K/uL MPV (9.4-12.3) fL Immature Gran % (Auto) % Neut % (Auto) % Lymph % (Auto) % Hutchinson % (Auto) % Eos % (Auto) % Baso % (Auto) % Neut # (Auto) (1.4-6.5) K/uL Lymph # (Auto) (1.2-3.4) K/uL Hutchinson # (Auto) (0.24-0.82) K/uL Eos # (Auto) (0-0.50) K/uL Baso # (Auto) (0-0.2) K/uL Immature Gran # (Auto) (0.00-0.02) K/uL Sodium (136-145) mmol/L Potassium (3.5-5.1) mmol/L Chloride (98-107) mmol/L Carbon Dioxide (21-32) mmol/L Anion Gap (3-11) BUN (6-23) mg/dl Creatinine (0.6-1.2) mg/dl Est Cr Clr Drug Dosing ml/min Est GFR ( Amer) ml/min Est GFR (Non-Af Amer) ml/min BUN/Creatinine Ratio (10-20) Glucose (70-99(Fasting)) mg/dl Calcium (8.5-10.1) mg/dl Magnesium (1.7-2.4) mg/dl Total Bilirubin (0.2-1.0) mg/dl AST (13-39) U/L ALT (7-52) U/L Alkaline Phosphatase (34-104) U/L Total Protein (6.0-8.3) gm/dl Albumin (3.4-5.0) gm/dl Globulin (2.5-4.0) gm/dl Albumin/Globulin Ratio (0.9-2) Lipase (11-82) U/L Urine Color Yellow Urine Appearance Clear (Clear) Urine pH 8.5 H (4.5-7.5) Ur Specific Kensett > 1.045 H (1.000-1.030) Urine Protein Negative (Negative) Urine Glucose (UA) Negative (Negative) Urine Ketones 1+ H (Negative) Urine Blood Negative (Negative) Urine Nitrite Negative (Negative) Urine Bilirubin Negative (Negative) Urine Urobilinogen Negative (Negative) Ur Leukocyte Esterase Negative (Negative) SARS-CoV-2 (PCR) (Negative) Influenza Type A (PCR) (Neg) Influenza Type B (PCR) (Neg) RSV (RT-PCR) (Neg) Administered Medications Discontinued Medications Sodium Chloride (Nss 1000ml) 1,000 mls @ 999 mls/hr IV .Q1H1M STA Stop: 10/09/22 12:48 Last Infusion: 10/09/22 16:22 Dose: 0 mls/hr Documented By: Admin: 10/09/22 12:38 Dose: 999 mls/hr Documented By: DONNA Sodium Chloride (Nss 1000ml) 1,000 mls @ 999 mls/hr IV .Q1H1M ONE Stop: 10/09/22 15:10 Last Infusion: 10/09/22 16:22 Dose: 0 mls/hr Documented By: Admin: 10/09/22 14:52 Dose: 999 mls/hr Documented By: DONNA Cefepime HCl (Maxipime) 2,000 mg in 20 mls @ 5 mls/min IV NOW STA; Protocol Stop: 10/09/22 14:14 Last Admin: 10/09/22 14:52 Dose: 5 mls/min Documented By: DONNA Metronidazole (Flagyl) 500 mg in 100 mls @ 100 mls/hr IV NOW STA Stop: 10/09/22 15:10 Last Infusion: 10/09/22 16:22 Dose: 0 mls/hr Documented By: Admin: 10/09/22 15:15 Dose: 100 mls/hr Documented By: DONNA Ioversol (Optiray 350 100ml) 86 ml IV ONCE ONE Stop: 10/09/22 13:56 Last Admin: 10/09/22 13:46 Dose: 86 ml Documented By: BUTCH Ondansetron HCl (Ondansetron Inj 2 Mg/Ml 2 Ml Vial) 4 mg IV NOW STA Stop: 10/09/22 11:49 Last Admin: 10/09/22 12:45 Dose: 4 mg Documented By: DONNA Imaging Data Radiologist's Impression: Abdomen/Pelvis CT 10/09/22 11:[address] WITH IV CONTRAST CT DOSE: 275.19 mGy.cm HISTORY: Acute generalized abdominal pain with nausea and vomiting ab pain, vomiting; h/o axios stent TECHNIQUE: Multiaxial CT images of the abdomen and pelvis were performed following the IV administration of 86 cc of Optiray, A dose lowering technique was utilized adhering to the principles of ALARA. COMPARISON STUDY: CT abdomen pelvis 02/06/2022 FINDINGS: Limited exam secondary to positioning and respiratory motion artifact. Cardiomegaly with coronary arterial calcifications. Subsegmental left basilar densities may represent a mild pneumonitis. There is no pneumatosis or pneumoperitoneum. Unremarkable spleen, pancreas and adrenal glands. Mild nonspecific gallbladder wall thickening. Unremarkable liver. Patency of the hepatic and portal veins. 8 mm cyst of the anterior interpolar right kidney. Unremarkable left kidney. No hydronephrosis. Moderate bladder wall thickening. Unremarkable uterus. Diminutive abdominal aorta. No lymphadenopathy identified. Circumferential wall thickening of the mid to distal esophagus. Mildly distended proximal to mid stomach again noted. A common bile duct stent is noted with distal tip terminating within the duodenum. No choledocholithiasis identified. Trace inflammatory stranding within the wanda hepatis with mild wall thickening of the duodenum. Mild wall thickening of the rectum is similar to prior. Moderate rectal fecal retention. No CT evidence of acute appendicitis. Marked atrophy of the musculature. Degenerative changes of the spine, pelvis and hips. Chronic subluxation of the femoral acetabular joints suggestive of nonweightbearing status. Lumbar levoscoliosis. IMPRESSION: 1. Limited exam as above. 2. A stent is present within the common bile duct with distal tip within the jejunum. No biliary ductal dilation identified. 3. Nonspecific gallbladder and duodenal wall thickening with mild inflammatory stranding within the wanda hepatis and adjacent to the proximal duodenum. These findings could be correlated with right upper quadrant ultrasound. 4. Mid to distal esophageal wall thickening. Correlate clinically to exclude esophagitis. 5. No bowel obstruction. 6. Additional findings as above. ACT 112: Negative or not required by law. The above report was generated using voice recognition software. It may contain grammatical, syntax or spelling errors. Electronically signed by: Eduin Wick M.D. 10/09/2022 2:19 PM Chest X-Ray 10/09/22 11:51 XR chest 1V portable HISTORY: vomiting COMPARISON: Chest 05/18/2021. FINDINGS: Slightly rotated study. No pneumothorax. No pleural effusions. The heart is normal in size. S-shaped scoliosis again noted. Partially visualized ureteral stents are present. IMPRESSION: No acute process. ACT 112: Negative or not required by law. Electronically signed by: Juan Galaviz M.D. 10/09/2022 12:36 PM Discharge Plan Visit Data Chief Complaint: Referred by Doctor Stated Complaint: REFERRED BY DR, VOMITING, GALLBLADDER ISSUES ED Provider: Abiodun Nguyen Discharge Problem: Vomiting and diarrhea, Cerebral palsy, Acute dehydration Forms Stand Alone Forms: [facility] Prescriptions Prescriptions: No Action guaifenesin [Mucus Relief ER] 600 mg tablet extended release 12hr 600 - 1,200 mg PO Q12H MDD 4 tablets PRN (Reason: mucus) quetiapine 25 mg tablet 25 mg PO .AT 8PM & 4PM docusate calcium 240 mg Capsule 240 mg PO DAILY@1600,2000 quetiapine 200 mg tablet 200 mg PO .DAILY AT 8PM fexofenadine [Jayleen Allergy] 180 mg Tablet 180 mg PO QAM omeprazole 40 mg capsule,delayed release(DR/EC) 40 mg PO BID baclofen 20 mg tablet 20 mg PO TID Rx Instructions: at 0800,1600,1999 baclofen 10 mg tablet 5 mg PO TID Rx Instructions: 0800,1600,1999 metronidazole 0.75 % cream 1 applic TOPICAL BID Rx Instructions: Apply to face. Debrox 6.5 % Drops 5 - 10 drp OTIC (EAR) WK Rx Instructions: mondays paroxetine HCl 40 mg tablet 40 mg PO QAM Rx Instructions: TOTAL DOSE 60 MG--TAKES WITH 20 MG TAB. ketoconazole 2 % cream 1 applic TOPICAL BID PRN (Reason: Rash) Rx Instructions: Apply to red rash on temples, eyebrows, back of ears and under breasts as needed. fluticasone propionate 50 mcg/actuation spray,suspension 2 spray INTRANASAL QAM vitamin B comp and C no.3 10-51-18-5-300 mg Capsule 1 cap PO QAM paroxetine HCl 20 mg tablet 20 mg PO QAM Rx Instructions: TOTAL DOSE 60 MG--TAKES WITH 40 MG TAB. levothyroxine 25 mcg tablet 25 mcg PO UD Rx Instructions: TAKE 25 MCG EVERY SATURDAY,SATURDAY,SATURDAY,SATURDAY AND SATURDAY, 50MCG ON SAT AND SATURDAY divalproex 500 mg tablet extended release 24 hr See Rx Instructions .ROUTE .COMPLEX Rx Instructions: Take 500 mg every morning and 1000 mg every evening estradiol 0.01 % (0.1 mg/gram) cream 1 applic VAGINAL 2XWK Rx Instructions: apply 1/2 " cream on 2x2,gently swipe over urethra 2x weekly saturday and bedtimes mirtazapine 7.5 mg tablet 7.5 mg PO HS hydroxyzine HCl 25 mg Tablet See Rx Instructions .ROUTE .COMPLEX Rx Instructions: TAKES 12.5 MG BID AT 0800 & 1600, THEN TAKES 25 MG AT HS. multivitamin [Daily-Donovan] Tablet 1 tab PO DAILY famotidine 20 mg Tablet 20 mg PO HS bisacodyl 10 mg Suppository 10 mg DC DAILY PRN (Reason: Constipation) Rx Instructions: use if no BM in 3 days with wynne laxative caplets levothyroxine 50 mcg tablet 50 mcg PO UD polyethylene glycol 3350 [Miralax] 17 gram/dose powder 17 g PO QAM Wynne' Gelcaps 90-83 mg Capsule 3 cap PO HS PRN (Reason: .no BM in 2 days) glycerin (adult) Suppository 1 supp DC DAILY PRN (Reason: Constipation) naproxen sodium 220 mg Capsule 220 mg PO .Q 8-12 HOURS PRN (Reason: while syptoms last) guaifenesin [Tussin Expectorant] 100 mg/5 mL Liquid 200 mg PO . Q 4-6 HOURS PRN (Reason: Cough) Referrals Referrals: Leighann Palumbo DO [Primary Care Provider] -
[2022-10-09] MEDS ORDERED: SODIUM CHLORIDE 0.9% 1000ML 1,000 ML IV STA (11:48)
[2022-10-09] MEDS ORDERED: ONDANSETRON INJ 2 MG/ML 2 ML VIAL IV STA (11:48)
--- NOTE | 2022-10-09 12:38 | XRay Report ---
XR chest 1V portable HISTORY: vomiting COMPARISON: Chest 05/18/2021. FINDINGS: Slightly rotated study. No pneumothorax. No pleural effusions. The heart is normal in size. S-shaped scoliosis again noted. Partially visualized ureteral stents are present. IMPRESSION: No acute process. ACT 112: Negative or not required by law. Electronically signed by: Juan Galaviz M.D. 10/09/2022 12:36 PM
[2022-10-09 13:12] LABS: Influenza A virus by PCR Negative (Neg); Influenza B virus by PCR Negative (Neg); RSV by PCR Negative (Neg); SARS CoV2 RNA(COVID-19) Ceph NEGATIVE (Negative)
[2022-10-09 13:16] LABS: Basophils # (auto) 0.03 K/uL (0-0.2); Basophils % (auto) 0.2 %; Eosinophils # (auto) 0.01 K/uL (0-0.50); Eosinophils % (auto) 0.1 %; Hematocrit (blood only) 35.2 % (34.1-44.9); Immature Granulocytes # (auto) 0.08 K/uL (0.00-0.02); Immature Granulocytes % (auto) 0.4 %; Lymphocytes # (auto) 3.28 K/uL (1.2-3.4); Lymphocytes % (auto) 16.4 %; Mean Corpuscular Hemoglobin 30.2 pg (25.0-34.0); Mean Corpuscular Hgb Conc 34.1 g/dL (32.0-36.0); Mean Corpuscular Volume 88.7 fL (80.0-100.0); Mean Platelet Volume 10.4 fL (9.4-12.3); Monocytes # (auto) 1.81 K/uL (0.24-0.82); Monocytes % (auto) 9.1 %; Neutrophils # (auto) 14.75 K/uL (1.4-6.5); Neutrophils % (auto) 73.8 %; Platelet Count 351 K/uL (130-400); RDW Coefficient of Variation 15.2 % (11.5-14.5); RDW Standard Deviation 49.6 fL (36.4-46.3); Red Blood Count 3.97 M/uL (3.93-5.22); White Blood Count 19.96 K/ul (4.8-10.8)
[2022-10-09 13:29] LABS: Albumin Globulin Ratio 0.9 (0.9-2); Albumin Level 3.3 gm/dl (3.4-5.0); BUN Creatinine Ratio 35.3 (10-20); Bilirubin,Total 0.3 mg/dl (0.2-1.0); Calcium 9.3 mg/dl (8.5-10.1); Creatinine Clr Calc Pharmacy 87.4 ml/min; Est GFR (African American) 140.4 ml/min; Est GFR (Non-African American) 121.1 ml/min; Globulin 3.8 gm/dl (2.5-4.0); Magnesium 1.9 mg/dl (1.7-2.4); Potassium 3.9 mmol/L (3.5-5.1); Total Protein 7.1 gm/dl (6.0-8.3)
[2022-10-09] MEDS ORDERED: OPTIRAY 350 100ml IV ONE (13:55)
[2022-10-09] MEDS ORDERED: SODIUM CHLORIDE 0.9% 1000ML 1,000 ML IV ONE (14:10)
[2022-10-09] MEDS ORDERED: CEFEPIME 2,000 MG/20 ML VIAL IV STA (14:11)
[2022-10-09] MEDS ORDERED: metroNIDAZOLE 500 MG/100 ML BAG IV STA (14:11)
[2022-10-09 14:21] LABS: Appearance Urine Clear (Clear); Bilirubin Urine Negative (Negative); Blood Urine Negative (Negative); Color Urine Yellow; Glucose Urine UA Negative (Negative); Ketones Urine 1+ (Negative); Leukocyte Esterase Urine Negative (Negative); Nitrite Urine Negative (Negative); Protein Urine Negative (Negative); Specific Gravity Urine > 1.045 (1.000-1.030); Urobilinogen Urine Negative (Negative); pH Urine 8.5 (4.5-7.5)
--- NOTE | 2022-10-09 14:21 | CT Scan Report ---
ABDOMEN AND PELVIS CT WITH IV CONTRAST CT DOSE: 275.19 mGy.cm HISTORY: Acute generalized abdominal pain with nausea and vomiting ab pain, vomiting; h/o axios sten t TECHNIQUE: Multiaxial CT images of the abdomen and pelvis were performed following the IV administrat ion of 86 cc of Optiray, A dose lowering technique was utilized adhering to the principles of ALARA. COMPARISON STUDY: CT abdomen pelvis 02/06/2022 FINDINGS: Limited exam secondary to positioning and respiratory motion artifact. Cardiomegaly with co ronary arterial calcifications. Subsegmental left basilar densities may represent a mild pneumonitis. There is no pneumatosis or pneumoperitoneum. Unremarkable spleen, pancreas and adrenal glands. Mild nonspecific gallbladder wall thickening. Unremarkable liver. Patency of the hepatic and portal veins. 8 mm cyst of the anterior interpolar right kidney. Unremarkable left kidney. No hydronephrosis. Moder ate bladder wall thickening. Unremarkable uterus. Diminutive abdominal aorta. No lymphadenopathy iden tified. Circumferential wall thickening of the mid to distal esophagus. Mildly distended proximal to mid stom ach again noted. A common bile duct stent is noted with distal tip terminating within the duodenum. N o choledocholithiasis identified. Trace inflammatory stranding within the wanda hepatis with mild wal l thickening of the duodenum. Mild wall thickening of the rectum is similar to prior. Moderate rectal fecal retention. No CT evidence of acute appendicitis. Marked atrophy of the musculature. Degenerati ve changes of the spine, pelvis and hips. Chronic subluxation of the femoral acetabular joints sugges tive of nonweightbearing status. Lumbar levoscoliosis. IMPRESSION: 1. Limited exam as above. 2. A stent is present within the common bile duct with distal tip within the jejunum. No biliary duct al dilation identified. 3. Nonspecific gallbladder and duodenal wall thickening with mild inflammatory stranding within the p antonio hepatis and adjacent to the proximal duodenum. These findings could be correlated with right upp er quadrant ultrasound. 4. Mid to distal esophageal wall thickening. Correlate clinically to exclude esophagitis. 5. No bowel obstruction. 6. Additional findings as above. ACT 112: Negative or not required by law. The above report was generated using voice recognition software. It may contain grammatical, syntax o r spelling errors. Electronically signed by: Eduin Wick M.D. 10/09/2022 2:19 PM
--- NOTE | 2022-10-09 15:41 | History & Physical Report ---
Date of Service October 09, 2022 Assessment & Plan (1) Nausea & vomiting: Plan: Nausea/vomiting Leukocytosis of 19.96, no gross electrolyte derangements. Creatinine normal at baseline and admitting creatinine is 0.34. Patient with chronic axial stent and multiple gallstones, currently on surveillance with stent exchanges as needed. - UA is uninfected appearing Bio fire pending CXR with no acute process, no evidence of aspiration pneumonia or pneumonitis - CT-A/P: 1. Limited exam as above. 2. A stent is present within the common bile duct with distal tip within the jejunum. No biliary ductal dilation identified. 3. Nonspecific gallbladder and duodenal wall thickening with mild inflammatory stranding within the wanda hepatis and adjacent to the proximal duodenum. These findings could be correlated with right upper quadrant ultrasound.4. Mid to distal esophageal wall thickening. Correlate clinically to exclude esophagitis. 5. No bowel obstruction. 6. Additional findings as above. No percutaneous drainage recommended, axial stent felt to be in place. Was discussed with GI Per on admission, ultrasound/additional imaging was not recommended at this time. Will admit on Rocephin/Flagyl and follow clinically Continue cefepime daily, Flagyl 3 times daily CMP daily Antiemetics, pain control as needed N.p.o. plus meds; speech eval pending Hypothyroidism Continue home Synthroid GERD Continue omeprazole converted to formulary Protonix 40 mg p.o. twice daily Anxiety/depression Continue paroxetine Continue Seroquel Continue mirtazapine 7.5 mg p.o. at bedtime Cerebral palsy Per mother possibly 1 seizure many years ago but isn't sure - Is on divalproex DVT prophylaxis: SCDs, heparin twice daily CODE STATUS: Full code Diet: N.p.o., sips and meds if able to pass swallow Disposition: Medical surgical, no arrhythmia. Seizure precautions. (2) GERD (gastroesophageal reflux disease): (3) Hypothyroidism (acquired): (4) High thyroid stimulating hormone (TSH) level: (5) Cerebral palsy: History of Present Illness Primary Care Provider: Leighann Palumbo DO [place] is a 57-year-old female with a past medical history of cerebral palsy, aspiration pneumonia, intellectual disability, GERD, UTI, acquired hypothyroidism who presents with an episode of nausea/vomiting. Patient has had ERCP with EUS guided gallbladder drainage with an axial stent with interval exchange performed by Dr. Venus Nolasco. Case was reviewed with GI by ER prior to admission, was not recommended for transfer for percutaneous drainage, and current axial stent was felt to be in place with appropriate function. Patient was recommended for admission on Rocephin with serial CMP's. Limited to yes no ansewrs, with CP/intellectual disability at baseline 24 hour care, was found to have emesis and foul smelling stool this morning Does not generally indicate pain but was calling out last night for caregivers at [employer] No fevers, sweats. Was shivering this morning with goosebumps. Before this morning no recent vomiting or fevers. Was found with vomit on her and with foul-smelling stool this morning. Had not been indicating pain or other distress before this morning, history limited by intellectual disability but patient answers "no" to whether she is having pain in her legs, chest Discussed with caregivers. Regarding her known cholelithiasis and axial stent in place plan was to do regular stend exchanges of Axios for the time being, if unable to exhcnage then would pursue perc drainage at that time Sees [facility] habitus, Blood pressure normally OK to a little high Did take morning medications today Case reviewed with patient's mother by phone, meds reconciled from [facility] list Medical History: Reviewed Medications: Reviewed Surgical History: Reviewed Allergies: Reviewed Social History: REviewed Code Status: Full Allergies Allergy/AdvReac Type Severity Reaction Status Date / Time amoxicillin Allergy Unknown UNKNOWN Verified 10/09/22 15:47 clavulanic acid Allergy Unknown UNKNOWN Verified 10/09/22 15:47 Home Medications Medication Instructions Recorded Confirmed Type baclofen 10 mg tablet 5 mg PO TID 11/14/19 10/09/22 History baclofen 20 mg tablet 20 mg PO TID 11/14/19 10/09/22 History carbamide peroxide 6.5 % ear drops 5 - 10 drp otic (ear) WK 11/14/19 03/28/22 History (Debrox) docusate calcium 240 mg capsule 240 mg PO DAILY@1600,2000 11/14/19 10/09/22 History fexofenadine 180 mg tablet 180 mg PO QAM 11/14/19 03/28/22 History (Jayleen Allergy) fluticasone propionate 50 2 spray intranasal QAM 11/14/19 10/09/22 History mcg/actuation nasal spray,suspension ketoconazole 2 % topical cream 1 applic topical BID PRN Rash 11/14/19 10/09/22 History metronidazole 0.75 % topical cream 1 applic topical BID 11/14/19 10/09/22 History omeprazole 40 mg capsule,delayed 40 mg PO BID 11/14/19 10/09/22 History release paroxetine HCl 40 mg tablet 40 mg PO QAM 11/14/19 10/09/22 History quetiapine 200 mg tablet 200 mg PO .DAILY AT 8PM 11/14/19 10/09/22 History quetiapine 25 mg tablet 12.5 mg PO .DAILY AT 4PM 11/14/19 10/09/22 History vitamin B comp and C no.3 15 mg-10 1 cap PO QAM 11/14/19 03/28/22 History mg-50 mg-5 mg-300 mg capsule divalproex 500 mg tablet,extended See Rx Instructions .Route .COMPLEX 12/03/19 10/09/22 History release 24 hr levothyroxine 25 mcg tablet 25 mcg PO UD 06/28/20 10/09/22 History paroxetine HCl 20 mg tablet 20 mg PO QAM 06/28/20 10/09/22 History estradiol 0.01% (0.1 mg/gram) 1 applic vaginal 2XWK 05/12/21 10/09/22 History vaginal cream mirtazapine 7.5 mg tablet 7.5 mg PO HS 05/12/21 10/09/22 History hydroxyzine HCl 25 mg tablet See Rx Instructions .Route .COMPLEX 05/17/21 10/09/22 History bisacodyl 10 mg rectal suppository 10 mg AK UD PRN IF NO BM IN 3 DAYS 01/31/22 03/28/22 History famotidine 20 mg tablet 20 mg PO HS 01/31/22 10/09/22 History multivitamin (Daily-Donovan tablet) 1 tab PO DAILY 01/31/22 10/09/22 History guaifenesin 600 mg tablet, 600 mg PO Q12H PRN 03/28/22 03/28/22 History extended release 12 hr (Mucus Relief ER) glycerin (adult) 1 supp AK DAILY PRN Constipation 10/09/22 10/09/22 History guaifenesin 100 mg/5 mL oral liquid 200 mg PO . Q 4-6 HOURS PRN Cough 10/09/22 10/09/22 History levothyroxine 50 mcg tablet 50 mcg PO UD 10/09/22 10/09/22 History naproxen sodium 220 mg capsule 220 mg PO .Q 8-12 HOURS PRN while 10/09/22 10/09/22 History syptoms last phenolphthalein-docusate sodium 90 3 cap PO HS PRN .no BM in 2 days 10/09/22 10/09/22 History mg-83 mg capsule polyethylene glycol 3350 17 17 g PO QAM 10/09/22 10/09/22 History gram/dose oral powder (Miralax) Past Med/Surg History Medical History (Updated 10/09/22 @ 15:55 by Rick Nielsen MD) Abdominal pain Cerebral palsy Colitis Constipation Dehydration Dysphasia GERD (gastroesophageal reflux disease) History of kidney stones Intractable vomiting Mental retardation Refuses to eat Sepsis Surgical History Hx of colonoscopy Surgical history unknown Family History Father Diabetes Other Asthma Cancer Hypertension No family history of adverse response to anesthesia No family history of bleeding disorder Social History Smoking Status: Never smoker Second Hand Exposure: No; Hx Alcohol Use: No Hx Substance Use: No Preferred Language: [place] Communication Ability: Impaired Complaint Clerk Required: No Beliefs That Will Affect Care: None Current Living Situation: Personal Care Facility Current Living Situation Comment: [facility] with 24/7 caregiver current occupational status: disabled Feels Safe at Home: Yes during the past year weight has: decreased > 10 lbs Assistive Devices: Mechanical Lift and Walker Review of Systems Review of Systems: All systems reviewed & are unremarkable except as noted in HPI & below Physical Exam Physical Exam: General: Answers yes no and sometimes groans at baseline, CP/baseline intellectual disability. Is alert and awake at bedside HEENT: Atraumatic, normocephalic. Pupils reactive to light, response to visual/auditory stimuli Pulm: CTAB A&P. -wheezes, -rales, -rhonchi. Symmetrical chest rise. No increased work of breathing. No respiratory distress. Cardiac: Regular, tachycardic radial pulses intact and symmetrical. Abdominal: Grimaces on right upper quadrant palpation and epigastric palpation. Soft. Says "no" to whether she has pain when her belly is pressed on the left lower quadrant and umbilicus. Extremities: Distal extremity deformities consistent with CP. Unable to assess strength/sensation testing due to engagement Results & Data Results & Data ([facility]) Vital Signs (Past 12 Hours) Vital Signs Temp Pulse Resp BP Pulse Ox O2 Del Method 10/09/22 10:55 37.0 C 114 H 16 122/75 97 Room Air PG Care Time/CCT Total # of Minutes Spent Total Time Spent with Patient: Total time spent is greater than 50% in coordination of care (as documented) at patient's floor/unit and/or counseling patient: Coding Level of Care Code 50317 INT INP/OBS CARE MIN Diagnoses Nausea & vomiting R11.2 GERD (gastroesophageal reflux disease) K21.9 Hypothyroidism (acquired) E03.9 High thyroid stimulating hormone (TSH) level R79.89 Cerebral palsy G80.9
[2022-10-09] MEDS: LACTATED RINGER'S 1,000 ML IV SCH (17:02)
[2022-10-09] MEDS ORDERED: ONDANSETRON INJ 2 MG/ML 2 ML VIAL IV PRN (18:03)
[2022-10-09] MEDS: PANTOprazole 40 MG in SYRINGE 0 ML IV SCH (21:14)
[2022-10-09] MEDS: QUEtiapine FUMARATE 200 MG TAB PO SCH (21:15)
[2022-10-09] MEDS: HEPARIN SOD 5,000 UNIT/0.5 ML VIAL SQ SCH (21:16)
[2022-10-09] MEDS: BACLOFEN 20 MG TAB PO SCH (21:17)
[2022-10-09] MEDS: BACLOFEN 10 MG TAB PO SCH (21:17)
[2022-10-09] MEDS: hydrOXYzine HCl 25 MG TAB PO SCH (21:18)
[2022-10-09] MEDS: DIVALPROEX EXTENDED RELEASE 500 MG TAB PO SCH (21:18)
[2022-10-09] MEDS: MIRTAZAPINE TAB 15 MG TAB PO SCH (21:19)
[2022-10-09] MEDS: metroNIDAZOLE 500 MG/100 ML BAG IV SCH (23:03)
[2022-10-09] MEDS: CEFEPIME 2,000 MG in SYRINGE 0 ML IV SCH (23:03)
[2022-10-10] MEDS: LACTATED RINGER'S 1,000 ML IV SCH ×2 (05:42→19:40)
[2022-10-10] MEDS: CEFEPIME 2,000 MG in SYRINGE 0 ML IV SCH ×3 (06:25→23:27)
[2022-10-10] MEDS: metroNIDAZOLE 500 MG/100 ML BAG IV SCH ×3 (06:26→23:27)
[2022-10-10] MEDS ORDERED: LEVOTHYROXINE SODIUM 50 MCG TABLET PO SCH (06:30)
[2022-10-10] MEDS: DIVALPROEX EXTENDED RELEASE 500 MG TAB PO SCH ×2 (11:17→21:08)
[2022-10-10] MEDS: hydrOXYzine HCl 25 MG TAB PO SCH ×3 (11:18→21:09)
[2022-10-10] MEDS: PARoxetine HCL 20 MG TAB PO SCH (11:18)
[2022-10-10] MEDS: QUEtiapine FUMARATE 25 MG TABLET PO SCH ×2 (11:18→16:50)
[2022-10-10] MEDS: BACLOFEN 20 MG TAB PO SCH ×3 (11:18→21:11)
[2022-10-10] MEDS: PANTOprazole 40 MG in SYRINGE 0 ML IV SCH ×2 (11:19→21:12)
[2022-10-10] MEDS: BACLOFEN 10 MG TAB PO SCH ×3 (11:20→21:09)
[2022-10-10] MEDS: HEPARIN SOD 5,000 UNIT/0.5 ML VIAL SQ SCH ×2 (11:21→21:08)
[2022-10-10 11:30] LABS: Alanine Aminotransferase 4 U/L (7-52); Albumin Globulin Ratio 0.9 (0.9-2); Albumin Level 2.4 gm/dl (3.4-5.0); Alkaline Phosphatase 71 U/L (34-104); Anion Gap 3 (3-11); Aspartate Aminotransferase 14 U/L (13-39); BUN Creatinine Ratio 34.8 (10-20); Bilirubin,Total 0.2 mg/dl (0.2-1.0); Blood Urea Nitrogen 8 mg/dl (6-23); Calcium 7.5 mg/dl (8.5-10.1); Carbon Dioxide 25 mmol/L (21-32); Chloride 112 mmol/L (98-107); Creatinine Clr Calc Pharmacy 126.5 ml/min; Est GFR (African American) > 150.0 ml/min; Est GFR (Non-African American) 137.7 ml/min; Globulin 2.8 gm/dl (2.5-4.0); Glucose 83 mg/dl (70-99(Fasting)); Potassium 3.4 mmol/L (3.5-5.1); Sodium 140 mmol/L (136-145); Total Protein 5.2 gm/dl (6.0-8.3)
--- NOTE | 2022-10-10 12:39 | Hospitalist Progress Note ---
Date of Service October 10, 2022 Assessment & Plan (1) Nausea & vomiting: Plan: N/V with history of cholelithiasis (abd pain symptoms and not surgical candidate due to malnourished state) was initially scheduled for axios stent placement for GB drainage however due to large gallstones, axial stent unable to be placed. Ultimately underwent GB and CBD stent placement April 2022 with removal of 2 stents 3 months later and gallbladder stent placement. CTAP on admit w/ CBD stent with tip in jejunum, however LFTs normal (ALP was slightly elevated 109 on admit) also noted mid to distal esophageal wall thickening, ?esophagitis Placed on Cefepime/Flagyl Blood cultures pending WBC 19.9k--> 8k, afebrile Biofire negative UA w/o infection Stool studies/PCR ordered -- monitor -- yet to be collected GI consulted -- continue conservative treatment for now/monitor LFTs Antiemetics prn Speech consulted -- advanced to pureed diet from NPO on admit Hypothyroidism Continue home Synthroid. Check TSH w/ AM labs as no recent levels GERD Continue PPI BID if continued issues w/ reflux could add pepcid as well -- will monitor Anxiety/depression Continue paroxetine Continue Seroquel Continue mirtazapine 7.5 mg p.o. at bedtime Cerebral palsy Per mother possibly 1 seizure many years ago but isn't sure. Is on divalproex DVT prophylaxis: SCDs, heparin twice daily (2) GERD (gastroesophageal reflux disease): (3) Hypothyroidism (acquired): (4) Cerebral palsy: Admission and Anticipated Discharge Date Admission Date: October 09, 2022 Supervising Physician Co-Signing Physician Notes PA Supervision Note: I did not personally see or examine the patient today, but I verified all toth points of FADY Butler's assessment and plan with the following exceptions/additions: Seems consistent with viral gastroenteritis with resulting esophagitis continue PPI, antiemetics no acute issues with known biliary stent Subjective eval this morning, care tech at bedside, states she looks much better than day prior. seen by speech this AM, diet advanced but hasn't gotten yet. Ok'd for RN to give pills in applesauce like she takes at home. Her caregiver notes she does have a history of reflux, meds reviewed and she is on omeprazole BID, she is getting protonix BID inpatient currently. Discussed if ongoing issues, could add pepcid BID as well. Will monitor for now. Inquiring if WBC trending down, no labs back yet -- this was added to AM blood already drawn. No further abdominal pain -- did have some epigastric discomfort yesterday when examining per caregiver, none today. On alternating doses of Synthroid. Naproxen on med list for pain, but caregiver states could be >1 week between doses sometimes. She is on a pureed diet at home of note. Questions/concerns addressed at this time. Physical Exam Physical Exam: General: Answers yes no and sometimes groans at baseline, CP/baseline intellectual disability. Is alert and awake at bedside, caregiver at bedside HEENT: Atraumatic, normocephalic. Pupils reactive to light, response to visual/auditory stimuli Pulm: CTAB A&P. -wheezes, -rales, -rhonchi. Symmetrical chest rise. No increased work of breathing. No respiratory distress. Cardiac: Regular, tachycardic radial pulses intact and symmetrical. Abdominal: +BS, slight distension, nontender to palpation (except deep palpation RUQ), no guarding/rigidity Extremities: Distal extremity deformities consistent with CP. Unable to assess strength/sensation testing due to engagement Skin: cool, dry Results & Data Results & Data ([facility]) Vital Signs (Past 12 Hours) Vital Signs Temp Pulse Pulse Resp BP BP Pulse Ox 10/10/22 08:38 36.5 C 93 H 17 108/66 96 10/10/22 08:34 36.5 C 98 H 16 94/63 L 95 10/10/22 07:25 O2 Del Method 10/10/22 08:38 Room Air 10/10/22 08:34 Room Air 10/10/22 07:25 Room Air Laboratory Results 10/10/22 10/10/22 10/10/22 Range/Units 12:52 07:08 07:08 WBC 8.66 (4.8-10.8) K/ul RBC 3.01 L (3.93-5.22) M/uL Hgb 9.1 L D (12.0-16.0) g/dl Hct 27.4 L (34.1-44.9) % MCV 91.0 (80.0-100.0) fL MCH 30.2 (25.0-34.0) pg MCHC 33.2 (32.0-36.0) g/dL RDW Std Deviation 51.4 H (36.4-46.3) fL RDW Coeff of Christopher 15.6 H (11.5-14.5) % Plt Count 208 (130-400) K/uL MPV 10.1 (9.4-12.3) fL Sodium 140 (136-145) mmol/L Potassium 3.4 L (3.5-5.1) mmol/L Chloride 112 H (98-107) mmol/L Carbon Dioxide 25 (21-32) mmol/L Anion Gap 3 (3-11) BUN 8 (6-23) mg/dl Creatinine 0.23 L (0.6-1.2) mg/dl Est Cr Clr Drug Dosing 126.5 ml/min Est GFR ( Amer) > 150.0 ml/min Est GFR (Non-Af Amer) 137.7 ml/min BUN/Creatinine Ratio 34.8 H (10-20) Glucose 83 (70-99(Fasting)) mg/dl Calcium 7.5 L (8.5-10.1) mg/dl Total Bilirubin 0.2 (0.2-1.0) mg/dl AST 14 (13-39) U/L ALT 4 L (7-52) U/L Alkaline Phosphatase 71 (34-104) U/L Total Protein 5.2 L D (6.0-8.3) gm/dl Albumin 2.4 L (3.4-5.0) gm/dl Globulin 2.8 (2.5-4.0) gm/dl Albumin/Globulin Ratio 0.9 (0.9-2) Hepatitis C Ab (EIA) Pending Hep C Ab Signal/Cutoff Pending Diagnostic Findings Abdomen/Pelvis CT 10/09/22 11:[address] WITH IV CONTRAST CT DOSE: 275.19 mGy.cm HISTORY: Acute generalized abdominal pain with nausea and vomiting ab pain, vomiting; h/o axios stent TECHNIQUE: Multiaxial CT images of the abdomen and pelvis were performed following the IV administration of 86 cc of Optiray, A dose lowering technique was utilized adhering to the principles of ALARA. COMPARISON STUDY: CT abdomen pelvis 02/06/2022 FINDINGS: Limited exam secondary to positioning and respiratory motion artifact. Cardiomegaly with coronary arterial calcifications. Subsegmental left basilar densities may represent a mild pneumonitis. There is no pneumatosis or pneumoperitoneum. Unremarkable spleen, pancreas and adrenal glands. Mild nonspecific gallbladder wall thickening. Unremarkable liver. Patency of the hepatic and portal veins. 8 mm cyst of the anterior interpolar right kidney. Unremarkable left kidney. No hydronephrosis. Moderate bladder wall thickening. Unremarkable uterus. Diminutive abdominal aorta. No lymphadenopathy identified. Circumferential wall thickening of the mid to distal esophagus. Mildly distended proximal to mid stomach again noted. A common bile duct stent is noted with distal tip terminating within the duodenum. No choledocholithiasis identified. Trace inflammatory stranding within the wanda hepatis with mild wall thickening of the duodenum. Mild wall thickening of the rectum is similar to prior. Moderate rectal fecal retention. No CT evidence of acute appendicitis. Marked atrophy of the musculature. Degenerative changes of the spine, pelvis and hips. Chronic subluxation of the femoral acetabular joints suggestive of nonweightbearing status. Lumbar levoscoliosis. IMPRESSION: 1. Limited exam as above. 2. A stent is present within the common bile duct with distal tip within the jejunum. No biliary ductal dilation identified. 3. Nonspecific gallbladder and duodenal wall thickening with mild inflammatory stranding within the wanda hepatis and adjacent to the proximal duodenum. These findings could be correlated with right upper quadrant ultrasound. 4. Mid to distal esophageal wall thickening. Correlate clinically to exclude esophagitis. 5. No bowel obstruction. 6. Additional findings as above. ACT 112: Negative or not required by law. The above report was generated using voice recognition software. It may contain grammatical, syntax or spelling errors. Electronically signed by: Eduin Wick M.D. 10/09/2022 2:19 PM Chest X-Ray 10/09/22 11:51 XR chest 1V portable HISTORY: vomiting COMPARISON: Chest 05/18/2021. FINDINGS: Slightly rotated study. No pneumothorax. No pleural effusions. The heart is normal in size. S-shaped scoliosis again noted. Partially visualized ureteral stents are present. IMPRESSION: No acute process. ACT 112: Negative or not required by law. Electronically signed by: Juan Galaviz M.D. 10/09/2022 12:36 PM PG Care Time/CCT Total # of Minutes Spent Total Time Spent with Patient: Total time spent is greater than 50% in coordination of care (as documented) at patient's floor/unit and/or counseling patient: Coding Level of Care Code 28360 SUB INP/OBS CARE 235MIN Diagnoses Nausea & vomiting R11.2 GERD (gastroesophageal reflux disease) K21.9 Hypothyroidism (acquired) E03.9 Cerebral palsy G80.9
--- NOTE | 2022-10-10 12:47 | Gastrointestinal Consultation ---
Date of Consultation October 10, 2022 Assessment & Plan (1) Vomiting and diarrhea: Patient is a 57 years old female with history of cerebral palsy, intellectual disability, hypothyroidism, GERD and UTI who presented yesterday with nausea and vomiting symptoms. She has a history of cholelithiasis, previously had abdominal pain symptoms and not a surgical candidate due to malnourished status. She was initially scheduled for Axios stent placement to drain her gallbladder however due to large gallstones axial stent was unable to be placed. She ultimately underwent gallbladder and CBD stent placements instead in April 2022. 3 months later she had those 2 stents removed and gallbladder stent placement. Admission CT showed that stent within the CBD with tip in the jejunum. LFTs are normal. Patient is currently asymptomatic.Would recommend conservative management at this time unless she is showing signs of cholangitis or biliary obstruction. Please continue IV antibiotics also PPI IV twice daily. Supervising Physician Co-Signing Physician Notes Patient is a 57 years old female with past medical history of cerebral palsy, intellectual disability, GERD, UTI, hypothyroidism, aspiration pneumonia who presented yesterday with nausea and vomiting. Patient with known large cholelithiasis, previously evaluated by surgery and not a candidate for surgical intervention. Had attempted Axios stent placement by Dr. Young however due to the large gallbladder stones there is no space for Axios stent flange to be opened/anchored, thus she eventually underwent biliary stent placements to drain her gallbladder and also had one stent placed within the CBD area. This was done in April, she underwent a repeat ERCP in July 2022 with the prior 2 biliary stents removed and another plastic stent placed to drain her gallbladder with plans for annual exchange of the stent. On exam she does have some mild tenderness (winces) in the RUQ but otherwise abdomen is soft. She is non-verbal so can not provide much information. Her LFTs are normal. She did have a leukocytosis (19) yesterday that has improved to [address] with no biliary duct dilation and stent appears in good position. Reviewed with advanced endoscopist Dr. Rhodes who also agrees. No further procedures recommended at this time as LFTs are normal. Symptomatic management of N/V. PPI 40 mg BID. Trend LFTs. Carmen Swenson, Gastroenterology and Hepatology History of Present Illness Reason for Consultation: Nausea, vomiting Requesting Physician: Dr. Samantha Etienne Attending Physician: Dr. Carmen Swenson History of Present Illness Patient is a 57 years old female with past medical history of cerebral palsy, intellectual disability, GERD, UTI, hypothyroidism, aspiration pneumonia who presented yesterday with nausea and vomiting symptoms. She is mostly nonverbal, history obtained from chart review and also her caregiver (Jazmyne) who is currently at her bedside. Patient with cholelithiasis that are large, not a candidate for surgical intervention, had attempted Axios stent placement by Dr. Young however due to the large gallbladder stones there is no space for Axios stent flange to be opened/anchored, thus she eventually underwent biliary stent placements to drain her gallbladder and also had one stent placed within the CBD area. This was done in April, she underwent a repeat ERCP in July 2022 with the prior 2 biliary stents removed and another biliary stent placed to drain her gallbladder with plans for annual exchange of the stent. Yesterday in the ER was noted that she was having signs of distress, squealing when her abdomen is palpated. No more recurrence of nausea and vomiting since admitted however she had bowel movement last evening. She is afebrile, hemodynamically stable, LFTs are normal. CT abdomen and pelvis with contrast showed stent within the common bile duct with distal tip in the jejunum, no biliary ductal dilatation noted. Nonspecific gallbladder and duodenal wall thickening with mild inflammatory stranding within the wanda hepatis and adjacent to the proximal duodenum is noted. There is also signs of mid to distal esophageal wall thickening. No bowel obstruction noted Allergies Allergy/AdvReac Type Severity Reaction Status Date / Time amoxicillin Allergy Unknown UNKNOWN Verified 10/09/22 15:47 clavulanic acid Allergy Unknown UNKNOWN Verified 10/09/22 15:47 Home Medications Medication Instructions Recorded Confirmed Type baclofen 10 mg tablet 5 mg PO TID 11/14/19 10/09/22 History baclofen 20 mg tablet 20 mg PO TID 11/14/19 10/09/22 History carbamide peroxide 6.5 % ear drops 5 - 10 drp otic (ear) WK 11/14/19 10/09/22 History (Debrox) docusate calcium 240 mg capsule 240 mg PO DAILY@1600,2000 11/14/19 10/09/22 History fexofenadine 180 mg tablet 180 mg PO QAM 11/14/19 10/09/22 History (Jayleen Allergy) fluticasone propionate 50 2 spray intranasal QAM 11/14/19 10/09/22 History mcg/actuation nasal spray,suspension ketoconazole 2 % topical cream 1 applic topical BID PRN Rash 11/14/19 10/09/22 History metronidazole 0.75 % topical cream 1 applic topical BID 11/14/19 10/09/22 History omeprazole 40 mg capsule,delayed 40 mg PO BID 11/14/19 10/09/22 History release paroxetine HCl 40 mg tablet 40 mg PO QAM 11/14/19 10/09/22 History quetiapine 200 mg tablet 200 mg PO .DAILY AT 8PM 11/14/19 10/09/22 History quetiapine 25 mg tablet 25 mg PO .AT 8PM & 4PM 11/14/19 10/09/22 History vitamin B comp and C no.3 15 mg-10 1 cap PO QAM 11/14/19 10/09/22 History mg-50 mg-5 mg-300 mg capsule divalproex 500 mg tablet,extended See Rx Instructions .Route .COMPLEX 12/03/19 10/09/22 History release 24 hr levothyroxine 25 mcg tablet 25 mcg PO UD 06/28/20 10/09/22 History paroxetine HCl 20 mg tablet 20 mg PO QAM 06/28/20 10/09/22 History estradiol 0.01% (0.1 mg/gram) 1 applic vaginal 2XWK 05/12/21 10/09/22 History vaginal cream mirtazapine 7.5 mg tablet 7.5 mg PO HS 05/12/21 10/09/22 History hydroxyzine HCl 25 mg tablet See Rx Instructions .Route .COMPLEX 05/17/21 10/09/22 History bisacodyl 10 mg rectal suppository 10 mg HI DAILY PRN Constipation 01/31/22 10/09/22 History famotidine 20 mg tablet 20 mg PO HS 01/31/22 10/09/22 History multivitamin (Daily-Donovan tablet) 1 tab PO DAILY 01/31/22 10/09/22 History guaifenesin 600 mg tablet, 600 - 1,200 mg PO Q12H PRN mucus 03/28/22 10/09/22 History extended release 12 hr (Mucus Relief ER) glycerin (adult) 1 supp HI DAILY PRN Constipation 10/09/22 10/09/22 History guaifenesin 100 mg/5 mL oral liquid 200 mg PO . Q 4-6 HOURS PRN Cough 10/09/22 10/09/22 History levothyroxine 50 mcg tablet 50 mcg PO UD 10/09/22 10/09/22 History naproxen sodium 220 mg capsule 220 mg PO .Q 8-12 HOURS PRN while 10/09/22 10/09/22 History syptoms last phenolphthalein-docusate sodium 90 3 cap PO HS PRN .no BM in 2 days 10/09/22 10/09/22 History mg-83 mg capsule polyethylene glycol 3350 17 17 g PO QAM 10/09/22 10/09/22 History gram/dose oral powder (Miralax) Patient History Medical History Abdominal pain Cerebral palsy Colitis Constipation Dehydration Dysphasia GERD (gastroesophageal reflux disease) History of kidney stones Intractable vomiting Mental retardation Refuses to eat Sepsis Surgical History Hx of colonoscopy Surgical history unknown Family History Father Diabetes Other Asthma Cancer Hypertension No family history of adverse response to anesthesia No family history of bleeding disorder Social History Smoking Status: Never smoker Second Hand Exposure: No; Do You Dip or Chew Tobacco: No; Tobacco Cessation Education Requested by Patient: No Hx Alcohol Use: No Hx Substance Use: No Preferred Language: Kazakh Communication Ability: Impaired Foot Tender Required: No Beliefs That Will Affect Care: None Current Living Situation: Personal Care Facility Current Living Situation Comment: [facility] with 08/04 caregiver current occupational status: disabled Other Information That Helps Us Care for You: No Feels Safe at Home: Yes Safety Concerns: Feels Safe At This Time during the past year weight has: decreased > 10 lbs Assistive Devices: Wheelchair and Other Review of Systems Review of Systems: All systems reviewed & are unremarkable except as noted in HPI & below Physical Exam Constitutional: + thin, well groomed, cooperative and comfortable Eyes: PERRL, conjunctivae normal, anicteric sclerae ENMT: external ear and nose normal, oropharynx normal Respiratory: normal respiratory effort, lungs clear to auscultation Cardiovascular: RRR, no murmur, no edema Gastrointestinal (Abdomen): normal bowel sounds, soft, nontender, no hepatosplenomegaly Musculoskeletal: Contractures noted on extremities Skin: no rashes, warm and dry no jaundice Psychiatric: Awake alert but nonverbal Lymphatic: no lymphedema Results & Data ([facility]) Vital Signs (Past 12 Hours) Vital Signs Temp Pulse Pulse Resp BP BP Pulse Ox 10/10/22 08:38 36.5 C 93 H 17 108/66 96 10/10/22 08:34 36.5 C 98 H 16 94/63 L 95 10/10/22 07:25 O2 Del Method 10/10/22 08:38 Room Air 10/10/22 08:34 Room Air 10/10/22 07:25 Room Air
[2022-10-10 13:22] LABS: Hematocrit (blood only) 27.4 % (34.1-44.9); Hemoglobin 9.1 g/dl (12.0-16.0); Mean Corpuscular Hemoglobin 30.2 pg (25.0-34.0); Mean Corpuscular Hgb Conc 33.2 g/dL (32.0-36.0); Mean Platelet Volume 10.1 fL (9.4-12.3); Platelet Count 208 K/uL (130-400); RDW Coefficient of Variation 15.6 % (11.5-14.5); RDW Standard Deviation 51.4 fL (36.4-46.3); Red Blood Count 3.01 M/uL (3.93-5.22); White Blood Count 8.66 K/ul (4.8-10.8)
[2022-10-10] MEDS ORDERED: POTASSIUM CHLORIDE 10 MEQ TABCR PO STA (18:02)
[2022-10-10] MEDS: MIRTAZAPINE TAB 15 MG TAB PO SCH (21:10)
[2022-10-10] MEDS: QUEtiapine FUMARATE 200 MG TAB PO SCH (21:11)
[2022-10-11] MEDS: CEFEPIME 2,000 MG in SYRINGE 0 ML IV SCH ×3 (06:28→23:57)
[2022-10-11] MEDS: metroNIDAZOLE 500 MG/100 ML BAG IV SCH ×2 (06:28→17:51)
[2022-10-11] MEDS: LEVOTHYROXINE SODIUM 25 MCG TABLET PO SCH (06:28)
[2022-10-11 08:47] LABS: Alanine Aminotransferase 5 U/L (7-52); Albumin Level 2.4 gm/dl (3.4-5.0); Alkaline Phosphatase 77 U/L (34-104); Anion Gap 2 (3-11); Aspartate Aminotransferase 12 U/L (13-39); BUN Creatinine Ratio 40.9 (10-20); Bilirubin,Total 0.2 mg/dl (0.2-1.0); Blood Urea Nitrogen 9 mg/dl (6-23); Calcium 7.7 mg/dl (8.5-10.1); Carbon Dioxide 28 mmol/L (21-32); Chloride 112 mmol/L (98-107); Creatinine Clr Calc Pharmacy 132.3 ml/min; Est GFR (African American) > 150.0 ml/min; Est GFR (Non-African American) 139.8 ml/min; Glucose 114 mg/dl (70-99(Fasting)); Magnesium 1.5 mg/dl (1.7-2.4); Potassium 3.6 mmol/L (3.5-5.1); Sodium 142 mmol/L (136-145); Total Protein 5.3 gm/dl (6.0-8.3)
[2022-10-11 08:58] LABS: Thyroid Stimulating Hormone 5.439 uIu/ml (0.300-4.500)
--- NOTE | 2022-10-11 09:00 | Hospitalist Progress Note ---
Date of Service October 11, 2022 Assessment & Plan (1) Nausea & vomiting: Plan: N/V with history of cholelithiasis (abd pain symptoms and not surgical candidate due to malnourished state) was initially scheduled for axios stent placement for GB drainage however due to large gallstones, axial stent unable to be placed. Ultimately underwent GB and CBD stent placement April 2022 with removal of 2 stents 3 months later and gallbladder stent placement. CTAP on admit w/ CBD stent with tip in jejunum, however LFTs normal (ALP was slightly elevated 109 on admit) also noted mid to distal esophageal wall thickening, ?esophagitis Placed on Cefepime/Flagyl empirically on admit - has been continued Blood cultures ngtd WBC 19.9k--> 8k, afebrile Biofire negative UA w/o infection GI consulted -- continue conservative treatment for now/monitor LFTs -- from their standpoint, ok for d/c Antiemetics prn Speech consulted -- continues on pureed diet Tolerating pureed diet, IVF discontinued Hgb actually the same at 9.1 today, while on continuous IVF, checked iron studie s/Venofer as below Constipation Also noted moderate fecal retention on initial imaging , suspect contributing to her n/v as well-- suppository ordered -- rec continued monitoring over bowel movements. added docusate/senna (takes docusate BID at home, miralax daily Has not moved her bowel yet, Stool studies when able to collect Anemia -Hgb fluctuant, but appears closer to the 10-11s, possible dehydration on prior admits w/ higher levels 9.1 x 2 iron panel w/ iron 14, TIBC 217, trans % sat 6, ferritin 40 Venofer IV, will repeat additional Venofer for tomorrow Messaged GI for any additional thoughts check fecal occult w/ stool studies when collected Hypothyroidism Continue home Synthroid 25mcg/50mcg alternating doses TSH elevated 5.43 slightly, consider changing to 50mcg daily vs repeating TFT outpatient in 6 weeks/adjustment if needed GERD Continue PPI BID -- on omeprazole BID [employer], protonix formulary while inpatient Hypomagnesemia Mag 1.5 -- 3gm IV ordered, ?2 PPI use vs PO intake. Monitor on repeat/may need to consider oral mag replacement at discharge Anxiety/depression Continue paroxetine Continue Seroquel Continue mirtazapine 7.5 mg p.o. at bedtime Cerebral palsy with Functional quadriplegia Per mother possibly 1 seizure many years ago but isn't sure. Is on divalproex DVT prophylaxis -SCDs, heparin twice daily (2) GERD (gastroesophageal reflux disease): (3) Hypothyroidism (acquired): (4) Cerebral palsy: Plan continued inpatient stay venofer replacement for iron deficiency, repeat in AM Admission and Anticipated Discharge Date Admission Date: October 09, 2022 Supervising Physician Co-Signing Physician Notes PA Supervision Note: I did not personally see or examine the patient today, but I verified all toth points of FADY Butler's assessment and plan with the following exceptions/additions: None Subjective eval this morning, no caregivers at bedside, but patient appears to be doing alright. nursing assisting with medications, however waiting until caregivers come as she is more agreeable to take meds with them-- discussed w/ nursing patient usually takes w/ applesauce. states no when asked about abdominal pain no further nausea or vomiting, however no BM either. Checked iron studies due to anemia, venofer ordered Will work on getting her to move her bowels and possible d/c tomorrow Review of Systems Review of Systems: All systems reviewed & are unremarkable except as noted in HPI & below Physical Exam Physical Exam: General: chronically ill appearing female sitting up in bed, getting cleaned up, no acute distress. yes/no on occasion/occassional groans CP/intellectual disability at baseline Head atraumatic, pupils equal in size, mm moist resp- no cough/tachypnea, no w/c, on room air 98% cv- rrr, no m/r/g gi- soft, slightly distended, NONTENDER, no guarding/rigidity ext- distal deformities c/w CP, no strength testing able to be performed due to patient engagement/ability to follow commands skin- cool, dry Results & Data Results & Data ([facility]) Vital Signs (Past 12 Hours) Vital Signs Temp Pulse Pulse Resp BP Pulse Ox O2 Del Method 10/11/22 08:49 36.5 C 97 H 16 97/64 L 96 Room Air 10/10/22 22:26 36.9 C 103 H 16 159/97 H 95 Room Air Laboratory Results 10/11/22 10/11/22 10/11/22 Range/Units 07:58 07:58 07:58 WBC (4.8-10.8) K/ul RBC (4.20-5.40) M/uL Hgb (12.0-16.0) g/dl Hct (37.0-47.0) % MCV (80.0-100.0) fL MCH (25.0-34.0) pg MCHC (32.0-36.0) g/dL RDW Std Deviation (36.4-46.3) fL RDW Coeff of Christopher (11.5-14.5) % Plt Count (130-400) K/uL MPV (9.4-12.4) fL Immature Gran % (Auto) % Neut % (Auto) % Lymph % (Auto) % [place] % (Auto) % Eos % (Auto) % Baso % (Auto) % Neut # (Auto) (1.40-6.50) K/uL Lymph # (Auto) (1.2-3.4) K/uL [place] # (Auto) (0.11-0.59) K/uL Eos # (Auto) (0-0.50) K/uL Baso # (Auto) (0-0.2) K/uL Immature Gran # (Auto) (0.01-0.20) K/uL Sodium (136-145) mmol/L Potassium (3.5-5.1) mmol/L Chloride (98-107) mmol/L Carbon Dioxide (21-32) mmol/L Anion Gap (3-11) BUN (6-23) mg/dl Creatinine (0.6-1.2) mg/dl Est Cr Clr Drug Dosing ml/min Est GFR ( Amer) ml/min Est GFR (Non-Af Amer) ml/min BUN/Creatinine Ratio (10-20) Glucose (70-99(Fasting)) mg/dl Calcium (8.5-10.1) mg/dl Magnesium (1.7-2.4) mg/dl Iron Cancelled (35-150) mcg/dl TIBC Cancelled (250-450) mcg/dl Unsaturated IBC Cancelled (155-355) mcg/dl Transferrin % Sat Cancelled (15-50) % Ferritin Cancelled (8-388) ng/ml Total Bilirubin (0.2-1.0) mg/dl Direct Bilirubin (0-0.2) mg/dl AST (13-39) U/L ALT (7-52) U/L Alkaline Phosphatase (34-104) U/L Total Protein (6.0-8.3) gm/dl Albumin (3.4-5.0) gm/dl Vitamin B12 1154 H (180-914) pg/ml Folate > 22.30 (>5.38) ng/ml TSH 5.439 H (0.300-4.500) uIu/ml Free T4 0.95 (0.61-1.60) ng/dl Hepatitis C Ab (EIA) (NON-REACTIVE) Hep C Ab Signal/Cutoff (<1.00) 10/11/22 10/11/22 10/10/22 Range/Units 07:58 07:58 07:08 WBC 8.73 (4.8-10.8) K/ul RBC 3.00 L (4.20-5.40) M/uL Hgb 9.1 L (12.0-16.0) g/dl Hct 27.5 L (37.0-47.0) % MCV 91.7 (80.0-100.0) fL MCH 30.3 (25.0-34.0) pg MCHC 33.1 (32.0-36.0) g/dL RDW Std Deviation 51.9 H (36.4-46.3) fL RDW Coeff of Christopher 15.7 H (11.5-14.5) % Plt Count 225 (130-400) K/uL MPV 10.3 (9.4-12.4) fL Immature Gran % (Auto) 0.3 % Neut % (Auto) 48.6 % Lymph % (Auto) 41.4 % [place] % (Auto) 8.8 % Eos % (Auto) 0.7 % Baso % (Auto) 0.2 % Neut # (Auto) 4.24 (1.40-6.50) K/uL Lymph # (Auto) 3.61 H (1.2-3.4) K/uL [place] # (Auto) 0.77 H (0.11-0.59) K/uL Eos # (Auto) 0.06 (0-0.50) K/uL Baso # (Auto) 0.02 (0-0.2) K/uL Immature Gran # (Auto) 0.03 (0.01-0.20) K/uL Sodium 142 (136-145) mmol/L Potassium 3.6 (3.5-5.1) mmol/L Chloride 112 H (98-107) mmol/L Carbon Dioxide 28 (21-32) mmol/L Anion Gap 2 L (3-11) BUN 9 (6-23) mg/dl Creatinine 0.22 L (0.6-1.2) mg/dl Est Cr Clr Drug Dosing 132.3 ml/min Est GFR ( Amer) > 150.0 ml/min Est GFR (Non-Af Amer) 139.8 ml/min BUN/Creatinine Ratio 40.9 H (10-20) Glucose 114 H (70-99(Fasting)) mg/dl Calcium 7.7 L (8.5-10.1) mg/dl Magnesium 1.5 L (1.7-2.4) mg/dl Iron 14 L (35-150) mcg/dl TIBC 217 L (250-450) mcg/dl Unsaturated IBC 203 (155-355) mcg/dl Transferrin % Sat 6 L (15-50) % Ferritin 40.4 (8-388) ng/ml Total Bilirubin 0.2 (0.2-1.0) mg/dl Direct Bilirubin 0.0 (0-0.2) mg/dl AST 12 L (13-39) U/L ALT 5 L (7-52) U/L Alkaline Phosphatase 77 (34-104) U/L Total Protein 5.3 L (6.0-8.3) gm/dl Albumin 2.4 L (3.4-5.0) gm/dl Vitamin B12 (180-914) pg/ml Folate (>5.38) ng/ml TSH (0.300-4.500) uIu/ml Free T4 (0.61-1.60) ng/dl Hepatitis C Ab (EIA) NON-REACTIVE (NON-REACTIVE) Hep C Ab Signal/Cutoff <0.02 (<1.00) PG Care Time/CCT Total # of Minutes Spent Total Time Spent with Patient: Total time spent is greater than 50% in coordination of care (as documented) at patient's floor/unit and/or counseling patient: Coding Level of Care Code 89349 SUB INP/OBS CARE 3/50MIN Diagnoses Nausea & vomiting R11.2 GERD (gastroesophageal reflux disease) K21.9 Hypothyroidism (acquired) E03.9 Cerebral palsy G80.9
[2022-10-11 09:29] LABS: Basophils # (auto) 0.02 K/uL (0-0.2); Basophils % (auto) 0.2 %; Eosinophils # (auto) 0.06 K/uL (0-0.50); Eosinophils % (auto) 0.7 %; Hematocrit (blood only) 27.5 % (37.0-47.0); Hemoglobin 9.1 g/dl (12.0-16.0); Immature Granulocytes # (auto) 0.03 K/uL (0.01-0.20); Immature Granulocytes % (auto) 0.3 %; Lymphocytes # (auto) 3.61 K/uL (1.2-3.4); Lymphocytes % (auto) 41.4 %; Mean Corpuscular Hemoglobin 30.3 pg (25.0-34.0); Mean Corpuscular Hgb Conc 33.1 g/dL (32.0-36.0); Mean Corpuscular Volume 91.7 fL (80.0-100.0); Mean Platelet Volume 10.3 fL (9.4-12.4); Monocytes # (auto) 0.77 K/uL (0.11-0.59); Monocytes % (auto) 8.8 %; Neutrophils # (auto) 4.24 K/uL (1.40-6.50); Neutrophils % (auto) 48.6 %; Platelet Count 225 K/uL (130-400); RDW Coefficient of Variation 15.7 % (11.5-14.5); RDW Standard Deviation 51.9 fL (36.4-46.3); White Blood Count 8.73 K/ul (4.8-10.8)
[2022-10-11] MEDS: PARoxetine HCL 20 MG TAB PO SCH (09:29)
[2022-10-11] MEDS: BACLOFEN 20 MG TAB PO SCH ×3 (09:29→20:35)
[2022-10-11] MEDS: hydrOXYzine HCl 25 MG TAB PO SCH ×3 (09:30→20:37)
[2022-10-11] MEDS: BACLOFEN 10 MG TAB PO SCH ×3 (09:30→20:38)
[2022-10-11] MEDS: DIVALPROEX EXTENDED RELEASE 500 MG TAB PO SCH ×2 (09:31→20:37)
[2022-10-11] MEDS: QUEtiapine FUMARATE 25 MG TABLET PO SCH ×2 (09:31→16:57)
[2022-10-11] MEDS: HEPARIN SOD 5,000 UNIT/0.5 ML VIAL SQ SCH ×2 (09:31→20:38)
[2022-10-11] MEDS: PANTOprazole 40 MG in SYRINGE 0 ML IV SCH ×2 (09:32→20:38)
[2022-10-11 09:33] LABS: T4 Free Thyroxine 0.95 ng/dl (0.61-1.60)
[2022-10-11] MEDS: MAGNESIUM SULFATE / D5W 1 GM/100 ML BAG IV SCH ×3 (09:34→13:25)
--- NOTE | 2022-10-11 09:35 | Discharge Summary ---
Date of Service October 11, 2022 Admission HPI Per Admitting Provider Beulah is a 57-year-old female with a past medical history of cerebral palsy, aspiration pneumonia, intellectual disability, GERD, UTI, acquired hypothyroidism who presents with an episode of nausea/vomiting. Patient has had ERCP with EUS guided gallbladder drainage with an axial stent with interval exchange performed by Dr. Venus Nolasco. Case was reviewed with GI by ER prior to admission, was not recommended for transfer for percutaneous drainage, and current axial stent was felt to be in place with appropriate function. Patient was recommended for admission on Rocephin with serial CMP's. Limited to yes no ansewrs, with CP/intellectual disability at baseline 24 hour care, was found to have emesis and foul smelling stool this morning Does not generally indicate pain but was calling out last night for caregivers at [facility] No fevers, sweats. Was shivering this morning with goosebumps. Before this morning no recent vomiting or fevers. Was found with vomit on her and with foul-smelling stool this morning. Had not been indicating pain or other distress before this morning, history limited by intellectual disability but patient answers "no" to whether she is having pain in her legs, chest Discussed with caregivers. Regarding her known cholelithiasis and axial stent in place plan was to do regular stend exchanges of Axios for the time being, if unable to exhcnage then would pursue perc drainage at that time Sees [facility], Blood pressure normally OK to a little high Did take morning medications today Case reviewed with patient's mother by phone, meds reconciled from [facility] Medical History: Reviewed Medications: Reviewed Surgical History: Reviewed Allergies: Reviewed Social History: REviewed Code Status: Full Admission Exam Per Admitting Provider General: Answers yes no and sometimes groans at baseline, CP/baseline intellectual disability. Is alert and awake at bedside HEENT: Atraumatic, normocephalic. Pupils reactive to light, response to visual/auditory stimuli Pulm: CTAB A&P. -wheezes, -rales, -rhonchi. Symmetrical chest rise. No increased work of breathing. No respiratory distress. Cardiac: Regular, tachycardic radial pulses intact and symmetrical. Abdominal: Grimaces on right upper quadrant palpation and epigastric palpation. Soft. Says "no" to whether she has pain when her belly is pressed on the left lower quadrant and umbilicus. Extremities: Distal extremity deformities consistent with CP. Unable to assess strength/sensation testing due to engagement Principal Diagnosis Nausea and Vomiting, Esophagitis Discharge Exam General: Answers yes no and sometimes groans at baseline, CP/baseline intellectual disability. Is alert and awake at bedside, caregiver at bedside HEENT: Atraumatic, normocephalic. Pupils reactive to light, response to visual/auditory stimuli Pulm: CTAB A&P. -wheezes, -rales, -rhonchi. Symmetrical chest rise. No increased work of breathing. No respiratory distress. Cardiac: Regular, tachycardic radial pulses intact and symmetrical. Abdominal: +BS, slight distension (decreased), nontender to palpation, no guarding/rigidity Extremities: Distal extremity deformities consistent with CP. Unable to assess strength/sensation testing due to engagement Skin: cool, dry Discharge Data Allergies Allergy/AdvReac Type Severity Reaction Status Date / Time amoxicillin Allergy Unknown UNKNOWN Verified 10/09/22 15:47 clavulanic acid Allergy Unknown UNKNOWN Verified 10/09/22 15:47 Consultations 10/09/22 15:21 ED Decision to Admit Stat 10/09/22 16:06 Consult Gastroenterology Routine Ordered Studies Abdomen/Pelvis CT 10/09/22 11:[address] WITH IV CONTRAST CT DOSE: 275.19 mGy.cm HISTORY: Acute generalized abdominal pain with nausea and vomiting ab pain, vomiting; h/o axios stent TECHNIQUE: Multiaxial CT images of the abdomen and pelvis were performed following the IV administration of 86 cc of Optiray, A dose lowering technique was utilized adhering to the principles of ALARA. COMPARISON STUDY: CT abdomen pelvis 02/06/2022 FINDINGS: Limited exam secondary to positioning and respiratory motion artifact. Cardiomegaly with coronary arterial calcifications. Subsegmental left basilar densities may represent a mild pneumonitis. There is no pneumatosis or pneumoperitoneum. Unremarkable spleen, pancreas and adrenal glands. Mild nonspe cific gallbladder wall thickening. Unremarkable liver. Patency of the hepatic and portal veins. 8 mm cyst of the anterior interpolar right kidney. Unremarkable left kidney. No hydronephrosis. Moderate bladder wall thickening. Unremarkable uterus. Diminutive abdominal aorta. No lymphadenopathy identified. Circumferential wall thickening of the mid to distal esophagus. Mildly distended proximal to mid stomach again noted. A common bile duct stent is noted with distal tip terminating within the duodenum. No choledocholithiasis identified. Trace inflammatory stranding within the wanda hepatis with mild wall thickening of the duodenum. Mild wall thickening of the rectum is similar to prior. Moderate rectal fecal retention. No CT evidence of acute appendicitis. Marked atrophy of the musculature. Degenerative changes of the spine, pelvis and hips. Chronic subluxation of the femoral acetabular joints suggestive of nonweightbearing status. Lumbar levoscoliosis. IMPRESSION: 1. Limited exam as above. 2. A stent is present within the common bile duct with distal tip within the jejunum. No biliary ductal dilation identified. 3. Nonspecific gallbladder and duodenal wall thickening with mild inflammatory stranding within the wanda hepatis and adjacent to the proximal duodenum. These findings could be correlated with right upper quadrant ultrasound. 4. Mid to distal esophageal wall thickening. Correlate clinically to exclude esophagitis. 5. No bowel obstruction. 6. Additional findings as above. ACT 112: Negative or not required by law. The above report was generated using voice recognition software. It may contain grammatical, syntax or spelling errors. Electronically signed by: Eduin Wick M.D. 10/09/2022 2:19 PM Chest X-Ray 10/09/22 11:51 XR chest 1V portable HISTORY: vomiting COMPARISON: Chest 05/18/2021. FINDINGS: Slightly rotated study. No pneumothorax. No pleural effusions. The heart is normal in size. S-shaped scoliosis again noted. Partially visualized ureteral stents are present. IMPRESSION: No acute process. ACT 112: Negative or not required by law. Electronically signed by: Juan Galaviz M.D. 10/09/2022 12:36 PM Hospital Course (1) Nausea & vomiting: N/V with history of cholelithiasis (abd pain symptoms and not surgical candidate due to malnourished state) was initially scheduled for axios stent placement for GB drainage however due to large gallstones, axial stent unable to be placed. Ultimately underwent GB and CBD stent placement April 2022 with removal of 2 stents 3 months later and gallbladder stent placement. CTAP on admit w/ CBD stent with tip in jejunum, however LFTs normal (ALP was slightly elevated 109 on admit) also noted mid to distal esophageal wall thickening, ?esophagitis Placed on Cefepime/Flagyl Blood cultures pending WBC 19.9k--> 8k, afebrile Biofire negative UA w/o infection Stool studies/PCR ordered -- monitor -- yet to be collected GI consulted -- continue conservative treatment for now/monitor LFTs Antiemetics prn Speech consulted -- advanced to pureed diet from NPO on admit Also noted moderate fecal retention on initial imaging -- suppository ordered -- rec continued monitoring over bowel movements Hypothyroidism Continue home Synthroid. Check TSH w/ AM labs as no recent levels GERD Continue PPI BID if continued issues w/ reflux could add pepcid as well -- will monitor Anxiety/depression Continue paroxetine Continue Seroquel Continue mirtazapine 7.5 mg p.o. at bedtime Cerebral palsy Per mother possibly 1 seizure many years ago but isn't sure. Is on divalproex DVT prophylaxis: SCDs, heparin twice daily (2) GERD (gastroesophageal reflux disease): (3) Hypothyroidism (acquired): (4) Cerebral palsy: Discharge Plan Discharge Items Reason For Visit: N/V, CP Follow-up/Referrals: Leighann Palumbo DO [Primary Care Provider] - Medications and DC Order Prescriptions: No Action guaifenesin [Mucus Relief ER] 600 mg tablet extended release 12hr 600 - 1,200 mg PO Q12H MDD 4 tablets PRN (Reason: mucus) quetiapine 25 mg tablet 25 mg PO .AT 8PM & 4PM docusate calcium 240 mg Capsule 240 mg PO DAILY@1600,2000 quetiapine 200 mg tablet 200 mg PO .DAILY AT 8PM fexofenadine [Jayleen Allergy] 180 mg Tablet 180 mg PO QAM omeprazole 40 mg capsule,delayed release(DR/EC) 40 mg PO BID baclofen 20 mg tablet 20 mg PO TID Rx Instructions: at 0800,1600,2000 baclofen 10 mg tablet 5 mg PO TID Rx Instructions: 0800,1600,2000 metronidazole 0.75 % cream 1 applic TOPICAL BID Rx Instructions: Apply to face. Debrox 6.5 % Drops 5 - 10 drp OTIC (EAR) WK Rx Instructions: mondays paroxetine HCl 40 mg tablet 40 mg PO QAM Rx Instructions: TOTAL DOSE 60 MG--TAKES WITH 20 MG TAB. ketoconazole 2 % cream 1 applic TOPICAL BID PRN (Reason: Rash) Rx Instructions: Apply to red rash on temples, eyebrows, back of ears and under breasts as needed. fluticasone propionate 50 mcg/actuation spray,suspension 2 spray INTRANASAL QAM vitamin B comp and C no.3 40-12-80-5-300 mg Capsule 1 cap PO QAM paroxetine HCl 20 mg tablet 20 mg PO QAM Rx Instructions: TOTAL DOSE 60 MG--TAKES WITH 40 MG TAB. levothyroxine 25 mcg tablet 25 mcg PO UD Rx Instructions: TAKE 25 MCG EVERY SATURDAY,SATURDAY,SATURDAY,SATURDAY AND SATURDAY, 50MCG ON SAT AND SATURDAY divalproex 500 mg tablet extended release 24 hr See Rx Instructions .ROUTE .COMPLEX Rx Instructions: Take 500 mg every morning and 1000 mg every evening estradiol 0.01 % (0.1 mg/gram) cream 1 applic VAGINAL 2XWK Rx Instructions: apply 1/2 " cream on 2x2,gently swipe over urethra 2x weekly saturday and bedtimes mirtazapine 7.5 mg tablet 7.5 mg PO HS hydroxyzine HCl 25 mg Tablet See Rx Instructions .ROUTE .COMPLEX Rx Instructions: TAKES 12.5 MG BID AT 0800 & 1600, THEN TAKES 25 MG AT HS. multivitamin [Daily-Donovan] Tablet 1 tab PO DAILY famotidine 20 mg Tablet 20 mg PO HS bisacodyl 10 mg Suppository 10 mg PA DAILY PRN (Reason: Constipation) Rx Instructions: use if no BM in 3 days with wynne laxative caplets levothyroxine 50 mcg tablet 50 mcg PO UD polyethylene glycol 3350 [Miralax] 17 gram/dose powder 17 g PO QAM Wynne' Gelcaps 90-83 mg Capsule 3 cap PO HS PRN (Reason: .no BM in 2 days) glycerin (adult) Suppository 1 supp PA DAILY PRN (Reason: Constipation) naproxen sodium 220 mg Capsule 220 mg PO .Q 8-12 HOURS PRN (Reason: while syptoms last) guaifenesin [Tussin Expectorant] 100 mg/5 mL Liquid 200 mg PO . Q 4-6 HOURS PRN (Reason: Cough) Admission Data Admit Date/Time: 10/09/22 16:05 Attending Provider: Samantha Etienne Admit Provider: Rick Nielsen Primary Care Provider: Leighann Palumbo Other Providers: Rick Nielsen ; Carmen Swenson. Coding Diagnoses Nausea & vomiting R11.2 GERD (gastroesophageal reflux disease) K21.9 Hypothyroidism (acquired) E03.9 Cerebral palsy G80.9
[2022-10-11] MEDS ORDERED: bisacodyL 10 MG SUPP PR STA (09:38)
[2022-10-11 11:49] LABS: Iron 14 mcg/dl (35-150); Total Iron Binding Cap Calc 217 mcg/dl (250-450); Transferrin (FE) Percent Satur 6 % (15-50); Unsaturated Iron Binding Cap 203 mcg/dl (155-355)
[2022-10-11 12:07] LABS: Ferritin 40.4 ng/ml (8-388)
[2022-10-11 12:19] LABS: Vitamin B12 1154 pg/ml (180-914)
[2022-10-11] MEDS ORDERED: IRON SUCROSE 300 MG in SODIUM CHLORIDE 0.9% 250 ML IV ONE (12:30)
[2022-10-11 16:44] LABS: Adenovirus F 40/41 PCR Not Detected (NotDetected); Astrovirus PCR Not Detected (NotDetected); Campylobacter PCR Not Detected (NotDetected); Cryptosporidium PCR Not Detected (NotDetected); Cyclospora cayetanensis PCR Not Detected (NotDetected); Entamoeba histolytica PCR Not Detected (NotDetected); Enteroaggregative E.coli(EAEC) Not Detected (NotDetected); Enteropathogenic E.coli (EPEC) Not Detected (NotDetected); Enterotoxigenic E.coli (ETEC) Not Detected (NotDetected); Giardia lamblia PCR Not Detected (NotDetected); Norovirus GI/GII PCR Not Detected (NotDetected); Plesiomonas shigelloides PCR Not Detected (NotDetected); Rotavirus A PCR Not Detected (NotDetected); Salmonella PCR Not Detected (NotDetected); Sapovirus PCR Not Detected (NotDetected); Shiga-like Toxin E.coli (STEC) Not Detected (NotDetected); Shigella/Enteroinvasive E.coli Not Detected (NotDetected); Vibrio cholerae PCR Not Detected (NotDetected); Vibrio species PCR Not Detected (NotDetected); Yersinia enterocolitica PCR Not Detected (NotDetected)
[2022-10-11] MEDS: DOCUSATE SODIUM/SENNA 50/8.6MG TAB PO SCH (16:57)
[2022-10-11] MEDS ORDERED: Nursing to Pharmacy Communication SCH (18:00)
[2022-10-11] MEDS: QUEtiapine FUMARATE 200 MG TAB PO SCH (20:35)
[2022-10-11] MEDS: MIRTAZAPINE TAB 15 MG TAB PO SCH (20:38)
[2022-10-12] MEDS: metroNIDAZOLE 500 MG/100 ML BAG IV SCH ×2 (00:04→09:01)
[2022-10-12] MEDS ORDERED: DIVALPROEX SODIUM SPRINKLE/DEL-REL 125 MG CAP PO SCH ×4 (04:25→21:00)
[2022-10-12] MEDS: LEVOTHYROXINE SODIUM 25 MCG TABLET PO SCH (06:19)
[2022-10-12] MEDS: CEFEPIME 2,000 MG in SYRINGE 0 ML IV SCH (06:25)
[2022-10-12] MEDS: PANTOprazole 40 MG in SYRINGE 0 ML IV SCH (08:20)
[2022-10-12] MEDS: BACLOFEN 20 MG TAB PO SCH (08:21)
[2022-10-12] MEDS: BACLOFEN 10 MG TAB PO SCH (08:21)
[2022-10-12] MEDS: PARoxetine HCL 20 MG TAB PO SCH (08:21)
[2022-10-12] MEDS: QUEtiapine FUMARATE 25 MG TABLET PO SCH (08:21)
[2022-10-12] MEDS: HEPARIN SOD 5,000 UNIT/0.5 ML VIAL SQ SCH (08:22)
[2022-10-12] MEDS: hydrOXYzine HCl 25 MG TAB PO SCH (08:24)
--- NOTE | 2022-10-12 09:09 | Discharge Summary ---
Date of Service October 12, 2022 Admission HPI Per Admitting Provider Primary Care Provider: Leighann Palumbo DO Beulah is a 57-year-old female with a past medical history of cerebral palsy, aspiration pneumonia, intellectual disability, GERD, UTI, acquired hypothyroidism who presents with an episode of nausea/vomiting. Patient has had ERCP with EUS guided gallbladder drainage with an axial stent with interval exchange performed by Dr. Venus Nolasco. Case was reviewed with GI by ER prior to admission, was not recommended for transfer for percutaneous drainage, and current axial stent was felt to be in place with appropriate function. Patient was recommended for admission on Rocephin with serial CMP's. Limited to yes no ansewrs, with CP/intellectual disability at baseline 24 hour care, was found to have emesis and foul smelling stool this morning Does not generally indicate pain but was calling out last night for caregivers at [facility] No fevers, sweats. Was shivering this morning with goosebumps. Before this morning no recent vomiting or fevers. Was found with vomit on her and with foul-smelling stool this morning. Had not been indicating pain or other distress before this morning, history limited by intellectual disability but patient answers "no" to whether she is having pain in her legs, chest Discussed with caregivers. Regarding her known cholelithiasis and axial stent in place plan was to do regular stend exchanges of Axios for the time being, if unable to exhcnage then would pursue perc drainage at that time Sees [facility] habit[facility], Blood pressure normally OK to a little high Did take morning medications today Case reviewed with patient's mother by phone, meds reconciled from [facility] list Medical History: Reviewed Medications: Reviewed Surgical History: Reviewed Allergies: Reviewed Social History: REviewed Code Status: Full Admission Exam Per Admitting Provider General: Answers yes no and sometimes groans at baseline, CP/baseline intellectual disability. Is alert and awake at bedside HEENT: Atraumatic, normocephalic. Pupils reactive to light, response to visual/auditory stimuli Pulm: CTAB A&P. -wheezes, -rales, -rhonchi. Symmetrical chest rise. No increased work of breathing. No respiratory distress. Cardiac: Regular, tachycardic radial pulses intact and symmetrical. Abdominal: Grimaces on right upper quadrant palpation and epigastric palpation. Soft. Says "no" to whether she has pain when her belly is pressed on the left lower quadrant and umbilicus. Extremities: Distal extremity deformities consistent with CP. Unable to assess strength/sensation testing due to engagement Principal Diagnosis Nausea, vomiting Discharge Exam General: chronically ill appearing female sitting up in bed, getting cleaned up, no acute distress. yes/no on occasion/occasional groans CP/intellectual disability at baseline Head atraumatic, pupils equal in size, mm moist resp- no cough/tachypnea, no w/c, on room air 98% cv- rrr, no m/r/g gi- soft, slightly distended, NONTENDER, no guarding/rigidity ext- distal deformities c/w CP, no strength testing able to be performed due to patient engagement/ability to follow commands skin- cool, dry Discharge Data Allergies Allergy/AdvReac Type Severity Reaction Status Date / Time amoxicillin Allergy Unknown UNKNOWN Verified 10/09/22 15:47 clavulanic acid Allergy Unknown UNKNOWN Verified 10/09/22 15:47 Consultations 10/09/22 15:21 ED Decision to Admit Stat 10/09/22 16:06 Consult Gastroenterology Routine Ordered Studies Abdomen/Pelvis CT 10/09/22 11:[address] WITH IV CONTRAST CT DOSE: 275.19 mGy.cm HISTORY: Acute generalized abdominal pain with nausea and vomiting ab pain, vomiting; h/o axios stent TECHNIQUE: Multiaxial CT images of the abdomen and pelvis were performed following the IV administration of 86 cc of Optiray, A dose lowering technique was utilized adhering to the principles of ALARA. COMPARISON STUDY: CT abdomen pelvis 02/06/2022 FINDINGS: Limited exam secondary to positioning and respiratory motion artifact. Cardiomegaly with coronary arterial calcifications. Subsegmental left basilar densities may represent a mild pneumonitis. There is no pneumatosis or pneumoperitoneum. Unremarkable spleen, pancreas and adrenal glands. Mild nonspecific gallbladder wall thickening. Unremarkable liver. Patency of the hepatic and portal veins. 8 mm cyst of the anterior interpolar right kidney. Unremarkable left kidney. No hydronephrosis. Moderate bladder wall thickening. Unremarkable uterus. Diminutive abdominal aorta. No lymphadenopathy identified. Circumferential wall thickening of the mid to distal esophagus. Mildly distended proximal to mid stomach again noted. A common bile duct stent is noted with distal tip terminating within the duodenum. No choledocholithiasis identified. Trace inflammatory stranding within the wanda hepatis with mild wall thickening of the duodenum. Mild wall thickening of the rectum is similar to prior. Moderate rectal fecal retention. No CT evidence of acute appendicitis. Marked atrophy of the musculature. Degenerative changes of the spine, pelvis and hips. Chronic subluxation of the femoral acetabular joints suggestive of nonweightbearing status. Lumbar levoscoliosis. IMPRESSION: 1. Limited exam as above. 2. A stent is present within the common bile duct with distal tip within the jejunum. No biliary ductal dilation identified. 3. Nonspecific gallbladder and duodenal wall thickening with mild inflammatory stranding within the wanda hepatis and adjacent to the proximal duodenum. These findings could be correlated with right upper quadrant ultrasound. 4. Mid to distal esophageal wall thickening. Correlate clinically to exclude esophagitis. 5. No bowel obstruction. 6. Additional findings as above. ACT 112: Negative or not required by law. The above report was generated using voice recognition software. It may contain grammatical, syntax or spelling errors. Electronically signed by: Eduin Wick M.D. 10/09/2022 2:19 PM Chest X-Ray 10/09/22 11:51 XR chest 1V portable HISTORY: vomiting COMPARISON: Chest 05/18/2021. FINDINGS: Slightly rotated study. No pneumothorax. No pleural effusions. The heart is normal in size. S-shaped scoliosis again noted. Partially visualized ureteral stents are present. IMPRESSION: No acute process. ACT 112: Negative or not required by law. Electronically signed by: Juan Galaviz M.D. 10/09/2022 12:36 PM Hospital Course (1) Nausea & vomiting: N/V with history of cholelithiasis (abd pain symptoms and not surgical candidate due to malnourished state) was initially scheduled for axios stent placement for GB drainage however due to large gallstones, axial stent unable to be placed. Ultimately underwent GB and CBD stent placement April 2022 with removal of 2 stents 3 months later and gallbladder stent placement. CTAP on admit w/ CBD stent with tip in jejunum, however LFTs normal (ALP was slightly elevated 109 on admit) also noted mid to distal esophageal wall thickening, ?esophagitis Placed on Cefepime/Flagyl empirically on admit - has been continued Blood cultures ngtd WBC 19.9k on admit, possibly reactive from n/v, normalized on repeat. Has been afebrile Biofire negative UA w/o infection GI consulted -- continue conservative treatment for now/monitor LFTs -- from their standpoint, ok for d/c. Will need yearly f/u for stent exchange w/ Dr Burgos Speech consulted -- continues on pureed diet Tolerating pureed diet, IVF discontinued Hgb improved once IVF discontinued, see below regarding anemia Remained stable, eating/drinking, moving her bowels. Stable for d/c. Encouraged continued movement of bowels to prevent constipation issues Cerebral palsy with Functional quadriplegia Per mother possibly 1 seizure many years ago but isn't sure. Is on divalproex 1000mg +500mg daily -- discussed with caregivers and her 1000mg dose is most difficult pill she has Decision to switch to Depakote sprinkles to allow for ease of admin w/ applesauce. Discussed w/ pharmacy and recs when transitiioning to delayed rel ease, decrease by 10-20%, sent with rx for 625mg PO BID Constipation Also noted moderate fecal retention on initial imaging , suspect contributing to her n/v as well-- suppository ordered, bowel regimen --> +BM x 2, LARGE Stool studies negative Continued bowel regimen at d/c Anemia Hgb fluctuant, but appears closer to the 10-11s, possible dehydration on prior admits w/ higher levels 9.1 x 2, iron panel w/ iron 14, TIBC 217, trans % sat 6, ferritin 40 No bleeding reported Venofer IV -- 300mg x2, continue oral supplement QOD at d/c w/ bowel regimen. Discussed stools can be darkened w/ such. Stool occult NEGATIVE Hypothyroidism Continue home Synthroid 25mcg/50mcg alternating doses TSH elevated 5.43 slightly, consider changing to 50mcg daily vs repeating TFT outpatient in 6 weeks/adjustment if needed GERD Continue PPI BID -- on omeprazole BID [employer], protonix formulary while inpatient Hypomagnesemia Mag 1.5 -- 3gm IV ordered, ?2 PPI use vs PO intake. Monitor on repeat/may need to consider oral mag replacement at discharge Anxiety/depression Continue paroxetine Continue Seroquel Continue mirtazapine 7.5 mg p.o. at bedtime DVT prophylaxis -SCDs, heparin twice daily while inpatient (2) GERD (gastroesophageal reflux disease): (3) Hypothyroidism (acquired): (4) Cerebral palsy: Total Time Total Time Spent Total Time Spent (In Minutes): 50 Discharge Plan Discharge Items Patient Disposition: Personal Assisted Reason For Visit: N/V, CP Discharge Diagnosis: Nausea, Vomiting, Esophagitis, Constipation Goals: You have been hospitalized for an acute medical problem. During your stay at [facility], we have made an effort to correct the problem that brought you to the hospital while keeping you as comfortable as possible. Medications were used to bring your condition under control and your discharge instructions will include directions for any medications you should take after leaving the hospital. Please make sure you see your Primary Care Provider as part of your follow up plan. Activity: Resume your previous activity Non-emergency contact: Primary Care Provider and Patient Navigator Call non-emergency contact if: you have any medication questions Follow-up/Referrals: Leighann Palumbo DO [Primary Care Provider] - 10/17/22 3:35 pm Be Burgos MD [Physician] - Diet: Heart Healthy Diet Texture: Pureed (blended smooth) Addtl Attending Provider Instructions: You have been hospitalized for nausea and vomiting. Imaging did not show any obstruction,however consultation with GI and you were placed on empiric antibiotics but cultures have been negative and your white count has normalized without any evidence for fevers. Discussion with GI indicates no need for continued antibiotics at discharge. Stool imaging was negative. Imaging showed a possible esophagitis, which could be from pills given chronic aspiration/risk. Speech was consulted and you were advanced to pureed diet. You were given medications to get your bowels moving and stool studies were also negative for any infection. We have decided to change your Depakote to sprinkles so that the capsule can be opened and put into applesauce for administration given inability to crush your previous type. Recommendations are to reduce the dose of this in the delayed formula/sprinkles by 20% and so you will be on 625mg by mouth twice a day. You can take oral iron every other day but please make sure keeping up with bowel regimen and moving them every 1-2 days to prevent constipation. You should have repeat thyroid levels drawn in 4-6 weeks as an outpatient as your TSH was slightly elevated, but this can be reactive from nausea/vomiting/acute illness. If remains elevated on repeat, they should consider changing your Synthroid to 50mcg daily. Please follow up with GI as previously arranged, your stent needs exchanged yearly. Please follow up with primary care in the next 7-10 days to monitor your progress after discharge. Please return to the ER with any fever, inability to keep up with oral intake, further nausea/vomiting, or for any other symptoms concerning for you. Take care! Pending Studies at Discharge: No Studies:: blood cultures -- no growth to date after 48 hours Stand-Alone Forms: My [facility] [employer], Smoking Cessation Skilled Items Patient informed of condition?: Yes DNR: No Discharge Level of Care: Other Communicable Disease: No Discharge Prognosis: Stable Lines: None Urinary Catheter: No Medications and DC Order Prescriptions: New divalproex [Depakote Sprinkles] 125 mg capsule, delayed rel sprinkle 625 mg PO BID 30 Days Qty: 300 1RF ferrous sulfate 325 mg (65 mg iron) tablet 325 mg PO Q OTHER DAY Qty: 15 0RF Continued guaifenesin [Mucus Relief ER] 600 mg tablet extended release 12hr 600 - 1,200 mg PO Q12H MDD 4 tablets PRN (Reason: mucus) quetiapine 25 mg tablet 25 mg PO .AT 8PM & 4PM docusate calcium 240 mg Capsule 240 mg PO DAILY@1600,2000 quetiapine 200 mg tablet 200 mg PO .DAILY AT 8PM fexofenadine [Jayleen Allergy] 180 mg Tablet 180 mg PO QAM omeprazole 40 mg capsule,delayed release(DR/EC) 40 mg PO BID baclofen 20 mg tablet 20 mg PO TID Rx Instructions: at 0800,1600,2000 baclofen 10 mg tablet 5 mg PO TID Rx Instructions: 0800,1600,1999 metronidazole 0.75 % cream 1 applic TOPICAL BID Rx Instructions: Apply to face. Debrox 6.5 % Drops 5 - 10 drp OTIC (EAR) WK Rx Instructions: mondays paroxetine HCl 40 mg tablet 40 mg PO QAM Rx Instructions: TOTAL DOSE 60 MG--TAKES WITH 20 MG TAB. ketoconazole 2 % cream 1 applic TOPICAL BID PRN (Reason: Rash) Rx Instructions: Apply to red rash on temples, eyebrows, back of ears and under breasts as needed. fluticasone propionate 50 mcg/actuation spray,suspension 2 spray INTRANASAL QAM vitamin B comp and C no.3 [id number] mg Capsule 1 cap PO QAM paroxetine HCl 20 mg tablet 20 mg PO QAM Rx Instructions: TOTAL DOSE 60 MG--TAKES WITH 40 MG TAB. levothyroxine 25 mcg tablet 25 mcg PO UD Rx Instructions: TAKE 25 MCG EVERY SATURDAY,SATURDAY,SATURDAY,SATURDAY AND SATURDAY, 50MCG ON SAT AND SATURDAY estradiol 0.01 % (0.1 mg/gram) cream 1 applic VAGINAL 2XWK Rx Instructions: apply 1/2 " cream on 2x2,gently swipe over urethra 2x weekly saturday and bedtimes mirtazapine 7.5 mg tablet 7.5 mg PO HS hydroxyzine HCl 25 mg Tablet See Rx Instructions .ROUTE .COMPLEX Rx Instructions: TAKES 12.5 MG BID AT 0800 & 1600, THEN TAKES 25 MG AT HS. multivitamin [Daily-Donovan] Tablet 1 tab PO DAILY famotidine 20 mg Tablet 20 mg PO HS bisacodyl 10 mg Suppository 10 mg MD DAILY PRN (Reason: Constipation) Rx Instructions: use if no BM in 3 days with wynne laxative caplets levothyroxine 50 mcg tablet 50 mcg PO UD polyethylene glycol 3350 [Miralax] 17 gram/dose powder 17 g PO QAM phenolphthalein-docusate sod 90-83 mg Capsule 3 cap PO HS PRN (Reason: .no BM in 2 days) glycerin (adult) Suppository 1 supp MD DAILY PRN (Reason: Constipation) naproxen sodium 220 mg Capsule 220 mg PO .Q 8-12 HOURS PRN (Reason: while syptoms last) guaifenesin 100 mg/5 mL Liquid 200 mg PO . Q 4-6 HOURS PRN (Reason: Cough) Discontinued divalproex 500 mg tablet extended release 24 hr See Rx Instructions .ROUTE .COMPLEX Rx Instructions: Take 500 mg every morning and 1000 mg every evening Discharge Orders: Discharge Order (Routine); Ordered 10/12/22 Ordered By: Meghann Butler Admission Data Admit Date/Time: 10/09/22 16:05 Attending Provider: Edson Lawler Admit Provider: Rick Nielsen Primary Care Provider: Leighann Palumbo Other Providers: Rick Nielsen ; Carmen Swenson Other Interventions: Discharge Summary Assessment (RN) Last Done: 10/12/22 11:27 Supervising Physician Co-Signing Physician Notes The patient was not seen by me. Chart reviewed. Case discussed with FADY Ruiz. Agree with assessment and plan Coding Level of Care Code HOSP INP/OBS DISCH >30 MIN Diagnoses Nausea & vomiting R11.2 GERD (gastroesophageal reflux disease) K21.9 Hypothyroidism (acquired) E03.9 Cerebral palsy G80.9
[2022-10-12 09:42] LABS: Basophils # (auto) 0.04 K/uL (0-0.2); Basophils % (auto) 0.4 %; Eosinophils # (auto) 0.04 K/uL (0-0.50); Eosinophils % (auto) 0.4 %; Hematocrit (blood only) 30.8 % (37.0-47.0); Hemoglobin 10.3 g/dl (12.0-16.0); Immature Granulocytes # (auto) 0.06 K/uL (0.01-0.20); Immature Granulocytes % (auto) 0.6 %; Lymphocytes # (auto) 3.04 K/uL (1.2-3.4); Lymphocytes % (auto) 30.8 %; Mean Corpuscular Hemoglobin 30.3 pg (25.0-34.0); Mean Corpuscular Hgb Conc 33.4 g/dL (32.0-36.0); Mean Corpuscular Volume 90.6 fL (80.0-100.0); Mean Platelet Volume 10.1 fL (9.4-12.4); Monocytes # (auto) 0.96 K/uL (0.11-0.59); Monocytes % (auto) 9.7 %; Neutrophils # (auto) 5.72 K/uL (1.40-6.50); Neutrophils % (auto) 58.1 %; Platelet Count 258 K/uL (130-400); RDW Coefficient of Variation 16.4 % (11.5-14.5); RDW Standard Deviation 53.3 fL (36.4-46.3); White Blood Count 9.86 K/ul (4.8-10.8)
[2022-10-12] MEDS ORDERED: IRON SUCROSE 300 MG in SODIUM CHLORIDE 0.9% 250 ML IV ONE (10:00)
[2022-10-12 10:29] LABS: Alanine Aminotransferase 5 U/L (7-52); Albumin Level 2.6 gm/dl (3.4-5.0); Alkaline Phosphatase 80 U/L (34-104); Anion Gap 4 (3-11); Aspartate Aminotransferase 24 U/L (13-39); BUN Creatinine Ratio 33.3 (10-20); Bilirubin,Total 0.3 mg/dl (0.2-1.0); Blood Urea Nitrogen 10 mg/dl (6-23); Calcium 7.7 mg/dl (8.5-10.1); Carbon Dioxide 29 mmol/L (21-32); Chloride 110 mmol/L (98-107); Est GFR (African American) 146.3 ml/min; Est GFR (Non-African American) 126.2 ml/min; Glucose 128 mg/dl (70-99(Fasting)); Magnesium 2.4 mg/dl (1.7-2.4); Potassium 3.6 mmol/L (3.5-5.1); Sodium 143 mmol/L (136-145); Total Protein 5.7 gm/dl (6.0-8.3)
[2022-10-12] MEDS: DOCUSATE SODIUM/SENNA 50/8.6MG TAB PO SCH (10:32)
== END 2022-10-12 14:02 | disposition home or self-care (01) | DRG 391 ==
LOC: ED 10:44 → 3W 16:05 → SUATTDRO 16:05 → 3W 17:18

== ENCOUNTER 2024-04-16 10:36 | Observation (INO) ==
--- NOTE | 2024-04-16 11:04 | Emergency Department Note ---
Impression & Plan Uncontrolled hypertension, Shortness of breath ED Provider Note HISTORY OF PRESENT ILLNESS: Patient is a 59-year-old female presenting with wheezing. Patient's caretakers provide history, as she is nonverbal from her cerebral palsy. Caretakers report for the last 2 to 3 weeks the patient's been having elevated blood pressures at their facility and elevated heart rate. Reports her blood pressure is anywhere from 140s to 190s. Heart rate ranges in the 120s to 130s. They report this is abnormal for her. States that they went to [facility] emergency room and she was found to be hypertensive and was started on a new blood pressure medication, but it does not seem to be helping. Reports that this morning the patient woke up and had audible wheezing. Reports that it seems like she is struggling to breathe. They deny any fevers at their facility. Denies any recent sick contact exposures. Reports that the patient has not been on any recent antibiotics or steroids. Reports that her urine smells like feces, but her urine sample at their facility has been negative for infection. ROS: as above PHYSICAL EXAM: Constitutional: Patient appears in no acute distress. HENT: Head: Normocephalic and atraumatic. Eyes: EOMI, PERRL Mouth/Throat: Mucous membranes moist. Neck: Trachea midline. Neck supple. Cardiovascular: Tachycardic with regular rhythm. No murmurs, rubs or gallops. Intact distal pulses. Pulmonary/Chest: No respiratory distress. Breath sounds clear and equal bilaterally. No wheezes or rales. Abdominal: Abdomen soft, no tenderness, rebound or guarding. Musculoskeletal: Contractures to the bilateral upper and lower extremities. Skin: Warm and dry. No rash, erythema, pallor or cyanosis Neurological: Alert. CN II-XII grossly intact MDM: - Vitals signs showed hypertension and tachycardia - History obtained via patient's caretakers, given patient's nonverbal status from her cerebral palsy. History as above. - Chronic conditions affecting care: HTN; cerebral palsy; GERD; hypothyroidism - Differential diagnoses include, but are not limited to: Congestive heart failure; acute coronary syndrome; COPD/asthma exacerbation; pulmonary edema; pulmonary embolism; pneumonia; pneumothorax; viral syndrome - Order placed for continuous cardiac monitoring. At this time, monitor showed rate of 103 bpm with normal sinus rhythm, per my interpretation. - External medical records reviewed. Discharge summary dated 05/28/2023 was reviewed. Patient was admitted at that time for vomiting and diarrhea and aspiration pneumonia. - EKG interpreted by myself showed normal sinus rhythm. Rate tachycardic at 112 bpm. QT 332. No acute ischemic changes. - Laboratory workup interpreted by myself showed normal WBC; normal PT/INR; stable electrolytes; normal troponin; normal procalcitonin; normal TSH; normal lactate - UA negative for infection - Viral respiratory panel negative - VBG normal - CXR negative for pneumonia, per my interpretation - Patient given 1L NS in ER. - Discussed results with patient's caretakers at bedside. They expressed concern about going home, given her vital sign abnormalities in the emergency department and requested patient be admitted for observation. - Discussion was had with pillowcase turner about patient's case and need for admission - Hospitalist, Dr. Nielsen, consulted for admission - [facility] ASSESSMENT AND PLAN: Diagnosis: uncontrolled hypertension; shortness of breath Plan: admit Past Med/Surg History Problem List (Updated 04/16/24 @ 16:07 by Sushila vOiedo MD) Shortness of breath (Acute) Uncontrolled hypertension (Acute) Uncontrolled hypertension Aspiration into lower respiratory tract Gastroenteritis Acute dehydration (Acute) Hypokalemia (Acute) Hypomagnesemia (Acute) Acute dehydration (Acute) GERD (gastroesophageal reflux disease) Nausea & vomiting History of back problems Encounter for pre-operative examination Cerebral palsy (Chronic) Aspiration pneumonia (Acute) Influenza B (Acute) Dehydration (Acute) High thyroid stimulating hormone (TSH) level Hypothyroidism (acquired) Urinary tract infection (Acute) Febrile illness Fever (Acute) UTI (urinary tract infection) GERD (gastroesophageal reflux disease) Dysphagia Drooling Weight loss Sepsis Dysphasia Constipation Cerebral palsy (Chronic) Mental retardation (Chronic) Medical History Cerebral palsy COVID-19 Vomiting and diarrhea GERD (gastroesophageal reflux disease) History of kidney stones Refuses to eat Dehydration Constipation Dysphasia Cerebral palsy Mental retardation Abdominal pain Intractable vomiting Colitis Sepsis Surgical History Hx of colonoscopy Surgical history unknown Family History Father Diabetes Other Asthma Cancer Hypertension No family history of adverse response to anesthesia No family history of bleeding disorder Social History Smoking Status: Never smoker Second Hand Exposure: No; Do You Dip or Chew Tobacco: No; Hx Alcohol Use: No Hx Substance Use: No Preferred Language: Senegalese Communication Ability: Unable Communication Ability Comment: Able to respond yes/no sometimes Meth[employer] Collection 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 Required: No Beliefs That Will Affect Care: None Current Living Situation: Personal Care Facility Current [facility] Comment[facility] current occupational status: disabled Feels Safe at Home: Yes Diet: regular during the past year weight has: decreased > 10 lbs Assistive Devices: Mechanical Lift and Wheelchair Allergies Allergies Allergy/AdvReac Type Severity Reaction Status Date / Time amoxicillin Allergy Unknown UNKNOWN Verified 01/07/24 20:13 clavulanic acid Allergy Unknown UNKNOWN Verified 01/07/24 20:13 Home Meds Home Medications Medication Instructions Recorded Confirmed baclofen 10 mg tablet 5 mg PO TID 11/14/19 04/16/24 baclofen 20 mg tablet 20 mg PO TID 11/14/19 04/16/24 carbamide peroxide 6.5 % ear drops 5 - 10 drp otic (ear) WK 11/14/19 04/16/24 (Debrox) docusate calcium 240 mg capsule 240 mg PO DAILY@1600,199911/14/19 04/16/24 fexofenadine 180 mg tablet 180 mg PO QAM 11/14/19 04/16/24 (Jayleen Allergy) fluticasone propionate 50 2 spray intranasal QA 11/14/19 04/16/24 mcg/actuation nasal spray,suspension ketoconazole 2 % topical cream 1 applic topical BID 11/14/19 04/16/24 metronidazole 0.75 % topical cream 1 applic topical BID 11/14/19 04/16/24 omeprazole 40 mg capsule,delayed 40 mg PO BID 11/14/19 04/16/24 release paroxetine HCl 40 mg tablet 40 mg PO QAM 11/14/19 04/16/24 quetiapine 200 mg tablet 200 mg PO HS 11/14/19 04/16/24 quetiapine 25 mg tablet 12.5 mg PO .DAILY@1600 11/14/19 04/16/24 vitamin B comp and C no.3 15 mg-10 1 cap PO QAM 11/14/19 04/16/24 mg-50 mg-5 mg-300 mg capsule paroxetine HCl 20 mg tablet 20 mg PO QAM 06/28/20 04/16/24 estradiol 0.01% (0.1 mg/gram) 1 applic vaginal 2XWK 05/12/21 04/16/24 vaginal cream mirtazapine 7.5 mg tablet 7.5 mg PO HS 05/12/21 04/16/24 hydroxyzine HCl 25 mg tablet See Rx Instructions .Route .COMPLEX 05/17/21 04/16/24 famotidine 20 mg tablet 20 mg PO HS 01/31/22 04/16/24 multivitamin (Daily-Donovan tablet) 1 tab PO DAILY 01/31/22 04/16/24 glycerin (adult) 1 supp HI DAILY PRN Constipation 10/09/22 04/16/24 levothyroxine 50 mcg tablet 50 mcg PO QAM 10/09/22 04/16/24 polyethylene glycol 3350 17 17 g PO QAM 10/09/22 04/16/24 gram/dose oral powder (Miralax) Lactobacillus rhamnosus GG 5 1 tab PO DAILY 05/21/23 04/16/24 billion cell chewable tablet ([employer] Probiotics) albuterol sulfate 2.5 mg/3 mL 2.5 mg inhalation Q6H PRN Wheezing 05/21/23 04/16/24 (0.083 %) solution for nebulization aluminum hydrox-magnesium carb 254 10 ml PO ACHS PRN Acid Reflux 05/21/23 04/16/24 mg-237.5 mg/5 mL oral suspension (Gaviscon Extra Strength) chlorhexidine gluconate 0.12 % 1 applic PO 2XWK 05/21/23 04/16/24 mouthwash fluoride (sodium) 1.1 % dental 1 applic dental BID 05/21/23 04/16/24 cream (Denta 5000 Plus) onabotulinumtoxinA 100 unit See Rx Instructions .Route .COMPLEX 05/21/23 04/16/24 solution for injection (Botox) sennosides 8.6 mg tablet (senna) 8.6 mg PO DAILY PRN Constipation 05/21/23 04/16/24 vitamin A and D See Rx Instructions .Route 05/21/23 04/16/24 .COMPLEX PRN WITH DIAPER CHANGES acetaminophen 500 mg tablet 1,000 mg PO Q6H PRN PAIN/FEVER 01/07/24 04/16/24 (Tylenol Extra Strength) divalproex 125 mg capsule,delayed 625 mg PO BID 01/07/24 04/16/24 release sprinkle (Depakote Sprinkles) magnesium hydroxide 311 mg 933 mg PO HS PRN Constipation 01/07/24 04/16/24 chewable tablet (Sweet Milk of Magnesia) Results & Data (ED) Vital Signs Vital Signs - 24 hr 04/16/24 10:38 04/16/24 11:03 04/16/24 12:12 Temperature 36.5 C Temperature Source Temporal Artery Scan Pulse Rate 113 H 110 H 101 H Pulse Rate from SpO2 Sensor Respiratory Rate 18 21 Respiratory Effort / Characteristics Non-Labored Respiratory Depth Normal Respiratory Pattern Regular Blood Pressure 196/97 H 156/112 H Blood Pressure Mean 130 126 Pulse Oximetry 97 95 Oxygen Delivery Method Room Air Room Air Sepsis Recent Fever Within 48 Hours No Sepsis New/Unexplained Change in Mental Status N/A Sepsis Action Taken by Nursing No Action Required 04/16/24 12:36 04/16/24 13:39 04/16/24 14:00 Temperature Temperature Source Pulse Rate 102 H 105 H 105 H Pulse Rate from SpO2 Sensor 101 H 105 H 106 H Respiratory Rate 18 22 18 Respiratory Effort / Characteristics Respiratory Depth Respiratory Pattern Blood Pressure Blood Pressure Mean Pulse Oximetry 95 97 94 Oxygen Delivery Method Room Air Sepsis Recent Fever Within 48 Hours Sepsis New/Unexplained Change in Mental Status Sepsis Action Taken by Nursing 04/16/24 15:00 04/16/24 15:11 Temperature Temperature Source Pulse Rate 105 H 106 H Pulse Rate from SpO2 Sensor 105 H Respiratory Rate 18 Respiratory Effort / Characteristics Respiratory Depth Respiratory Pattern Blood Pressure 183/131 H Blood Pressure Mean 148 Pulse Oximetry 95 Oxygen Delivery Method Sepsis Recent Fever Within 48 Hours Sepsis New/Unexplained Change in Mental Status Sepsis Action Taken by Nursing Laboratory Data 04/16/24 11:48 04/16/24 11:48 Lab Results 04/16/24 04/16/24 04/16/24 Range/Units 11:04 11:48 14:13 WBC 8.23 (4.8-10.8) K/ul RBC 4.22 (4.20-5.40) M/uL Hgb 13.1 (12.0-16.0) g/dl Hct 39.3 (37.0-47.0) % MCV 93.1 (80.0-100.0) fL MCH 31.0 (25.0-34.0) pg MCHC 33.3 (32.0-36.0) g/dL RDW Std Deviation 46.4 H (36.4-46.3) fL RDW Coeff of Christopher 13.7 (11.5-14.5) % Plt Count 233 (130-400) K/uL MPV 10.6 (9.4-12.4) fL Immature Gran % (Auto) 0.4 % Neut % (Auto) 43.1 % Lymph % (Auto) 48.4 % [place] % (Auto) 6.4 % Eos % (Auto) 1.3 % Baso % (Auto) 0.4 % Neut # (Auto) 3.55 (1.40-6.50) K/uL Lymph # (Auto) 3.98 H (1.20-3.40) K/uL [place] # (Auto) 0.53 (0.11-0.59) K/uL Eos # (Auto) 0.11 (0.00-0.50) K/uL Baso # (Auto) 0.03 (0.00-0.20) K/uL Immature Gran # (Auto) 0.03 (0.01-0.20) K/uL PT 10.2 (9.0-12.0) Seconds INR 0.9 (0.9-1.1) VBG pH 7.41 (7.36-7.41) VBG pCO2 49 (38-50) mmHg VBG pO2 40 mmHg VBG HCO3 31 mmol/L VBG O2 Saturation 70.4 % VBG Base Excess 5.3 mEq/L Sodium 141 (136-145) mmol/L Potassium 4.7 (3.5-5.1) mmol/L Chloride 104 (98-107) mmol/L Carbon Dioxide 32 (21-32) mmol/L Anion Gap 5 (3-11) BUN 10 (6-23) mg/dl Creatinine 0.35 L (0.6-1.2) mg/dl Est Cr Clr Drug Dosing Not Reportable Est GFR ( Amer) 137.1 ml/min Est GFR (Non-Af Amer) 118.3 ml/min BUN/Creatinine Ratio 28.6 H (10-20) Glucose 96 (70-99(Fasting)) mg/dl Lactate 1.5 (0.4-2.0) mmol/L Calcium 9.0 (8.6-10.3) mg/dl Magnesium 2.2 (1.7-2.4) mg/dl Total Bilirubin 0.2 (0.2-1.0) mg/dl AST 16 (13-39) U/L ALT 8 (7-52) U/L Alkaline Phosphatase 71 (34-104) U/L Troponin I High Sens 3.8 (0-14) pg/ml Total Protein 6.9 (6.0-8.3) gm/dl Albumin 4.0 (3.4-5.0) gm/dl Globulin 2.9 (2.5-4.0) gm/dl Albumin/Globulin Ratio 1.4 (0.9-2) Procalcitonin < 0.02 (0-0.5) ng/ml TSH 4.167 (0.300-4.500) uIu/ml Urine Color Yellow Urine Appearance Clear (Clear) Urine pH 8.0 H (4.5-7.5) Ur Specific [place] 1.012 (1.000-1.030) Urine Protein Negative (Negative) Urine Glucose (UA) Negative (Negative) Urine Ketones Negative (Negative) Urine Blood Negative (Negative) Urine Nitrite Negative (Negative) Urine Bilirubin Negative (Negative) Urine Urobilinogen Negative (Negative) Ur Leukocyte Esterase Negative (Negative) Adenovirus (PCR) Not Detected (NotDetected) B. pertussis DNA (PCR) Not Detected (NotDetected) B.parapertussis DNA PCR Not Detected (NotDetected) C. pneumoniae DNA (PCR) Not Detected (NotDetected) Coronavirus OC43 (PCR) Not Detected (NotDetected) Coronavirus HKU1 (PCR) Not Detected (NotDetected) Coronavirus 229E (PCR) Not Detected (NotDetected) SARS-CoV-2 (PCR) Not Detected (NotDetected) Coronavirus NL63 (PCR) Not Detected (NotDetected) Human Metapneumovir PCR Not Detected (NotDetected) Influenza Type A (PCR) Not Detected (NotDetected) Influenza Type B (PCR) Not Detected (NotDetected) M. pneumoniae (PCR) Not Detected (NotDetected) Parainfluenza 1 (PCR) Not Detected (NotDetected) Parainfluenza 2 (PCR) Not Detected (NotDetected) Parainfluenza 3 (PCR) Not Detected (NotDetected) Parainfluenza 4 (PCR) Not Detected (NotDetected) RSV (PCR) Not Detected (NotDetected) Entero/Rhino (PCR) Not Detected (NotDetected) Administered Medications Discontinued Medications Sodium Chloride (Nss) 1,000 mls @ 999 mls/hr IV .Q1H1M ONE Stop: 04/16/24 13:26 Last Infusion: 04/16/24 15:07 Dose: Infused Documented By: Admin: 04/16/24 13:12 Dose: 999 mls/hr Documented By: NAYANA Imaging Data Radiologist's Impression: Chest X-Ray 04/16/24 10:45 XR chest 1V portable HISTORY: confusion COMPARISON: Chest 08/28/2023. FINDINGS: Rotated study. No pneumothorax. No pleural effusions. Small left basilar linear densities favor subsegmental atelectasis or scarring. No new focal lung consolidations to suggest a pneumonia. No evidence for pulmonary edema. The heart is normal in size. No acute fractures. A right cervical rib is noted. S-shaped scoliosis. IMPRESSION: No significant change compared to the prior study. No acute process. ACT 112: Negative or not required by law. Electronically signed by: Juan Galaviz M.D. 04/16/2024 11:43 AM Discharge Plan Visit Data Chief Complaint: Referred by Doctor Stated Complaint: REF BY DOC, HIGH BP, HIGH PULSE, WEEZING ED Provider: Sushila Oviedo Discharge Problem: Uncontrolled hypertension, Shortness of breath Forms Stand Alone Forms: My [facility] [employer] Prescriptions Prescriptions: No Action quetiapine 25 mg tablet 12.5 mg PO .DAILY@1600 docusate calcium 240 mg Capsule 240 mg PO DAILY@1600,2000 quetiapine 200 mg tablet 200 mg PO HS fexofenadine [Jayleen Allergy] 180 mg Tablet 180 mg PO QAM omeprazole 40 mg capsule,delayed release(DR/EC) 40 mg PO BID baclofen 20 mg tablet 20 mg PO TID Rx Instructions: at 0800,1600,1999 baclofen 10 mg tablet 5 mg PO TID Rx Instructions: 0800,1600,1999 metronidazole 0.75 % cream 1 applic TOPICAL BID Rx Instructions: Apply to face. Debrox 6.5 % Drops 5 - 10 drp OTIC (EAR) WK Rx Instructions: mondays paroxetine HCl 40 mg tablet 40 mg PO QAM Rx Instructions: TOTAL DOSE 60 MG--TAKES WITH 20 MG TAB. ketoconazole 2 % cream 1 applic TOPICAL BID Rx Instructions: Apply to red rash on temples, eyebrows, back of ears and under breasts as needed. fluticasone propionate 50 mcg/actuation spray,suspension 2 spray INTRANASAL QAM vitamin B comp and C no.3 [id number] mg Capsule 1 cap PO QAM paroxetine HCl 20 mg tablet 20 mg PO QAM Rx Instructions: TOTAL DOSE 60 MG--TAKES WITH 40 MG TAB. sennosides [senna] 8.6 mg Tablet 8.6 mg PO DAILY PRN (Reason: Constipation) albuterol sulfate 2.5 mg /3 mL (0.083 %) Solution For Nebulization 2.5 mg inhalation Q6H PRN (Reason: Wheezing) Botox 100 unit Recon Soln See Rx Instructions .ROUTE .COMPLEX Rx Instructions: DIRECTED FOR BILATERAL UPPER EXTREMITY INJ FOR DYSTONIA SECONDARY TO CHEST PAIN vitamin A and D Ointment See Rx Instructions .ROUTE .COMPLEX PRN (Reason: WITH DIAPER CHANGES) Rx Instructions: APPLY TO BUTTOCKS EVERY TIME ATTENDS ARE CHANGED BARRIER Gaviscon Extra Strength 254-237.5 mg/5 mL Suspension 10 ml PO ACHS PRN (Reason: Acid Reflux) fluoride (sodium) [Denta 5000 Plus] 1.1 % Cream 1 applic DENTAL BID chlorhexidine gluconate 0.12 % mouthwash 1 applic PO 2XWK Rx Instructions: 2x week. swab on teeth and gums after brushing. / [employer] Probiotics 5 billion cell Tablet,Chewable 1 tab PO DAILY estradiol 0.01 % (0.1 mg/gram) cream 1 applic VAGINAL 2XWK Rx Instructions: apply 1/2 " cream on 2x2,gently swipe over urethra 2x weekly saturday and bedtimes mirtazapine 7.5 mg tablet 7.5 mg PO HS hydroxyzine HCl 25 mg Tablet See Rx Instructions .ROUTE .COMPLEX Rx Instructions: TAKES 12.5 MG BID AT 0800 & 1600, THEN TAKES 25 MG AT HS. multivitamin [Daily-Donovan] Tablet 1 tab PO DAILY famotidine 20 mg Tablet 20 mg PO HS levothyroxine 50 mcg tablet 50 mcg PO QAM polyethylene glycol 3350 [Miralax] 17 gram/dose powder 17 g PO QAM glycerin (adult) Suppository 1 supp HI DAILY PRN (Reason: Constipation) acetaminophen [Tylenol Extra Strength] 500 mg Tablet 1,000 mg PO Q6H MDD 6 TABLETS/24 HOURS PRN (Reason: PAIN/FEVER) Sweet Milk of Magnesia 311 mg Tablet,Chewable 933 mg PO HS PRN (Reason: Constipation) divalproex [Depakote Sprinkles] 125 mg capsule, delayed rel sprinkle 625 mg PO BID Rx Instructions: 5 TABLETS---8AM/8PM Referrals Referrals: Leighann Palumbo DO [Primary Care Provider] -
--- NOTE | 2024-04-16 11:45 | XRay Report ---
XR chest 1V portable HISTORY: confusion COMPARISON: Chest 08/28/2023. FINDINGS: Rotated study. No pneumothorax. No pleural effusions. Small left basilar linear densities f avor subsegmental atelectasis or scarring. No new focal lung consolidations to suggest a pneumonia. N o evidence for pulmonary edema. The heart is normal in size. No acute fractures. A right cervical rib is noted. S-shaped scoliosis. IMPRESSION: No significant change compared to the prior study. No acute process. ACT 112: Negative or not required by law. Electronically signed by: Juan Galaviz M.D. 04/16/2024 11:43 AM
[2024-04-16 12:00] LABS: Base Excess VBG 5.3 mEq/L; HCO3 VBG 31 mmol/L; Oxygen Saturation VBG 70.4 %; PCO2 VBG 49 mmHg (38-50); PO2 VBG 40 mmHg; pH VBG 7.41 (7.36-7.41)
[2024-04-16 12:11] LABS: Basophils # (auto) 0.03 K/uL (0.00-0.20); Basophils % (auto) 0.4 %; Eosinophils # (auto) 0.11 K/uL (0.00-0.50); Eosinophils % (auto) 1.3 %; Hematocrit (blood only) 39.3 % (37.0-47.0); Hemoglobin 13.1 g/dl (12.0-16.0); Immature Granulocytes # (auto) 0.03 K/uL (0.01-0.20); Immature Granulocytes % (auto) 0.4 %; Lymphocytes # (auto) 3.98 K/uL (1.20-3.40); Lymphocytes % (auto) 48.4 %; Mean Corpuscular Hgb Conc 33.3 g/dL (32.0-36.0); Mean Corpuscular Volume 93.1 fL (80.0-100.0); Mean Platelet Volume 10.6 fL (9.4-12.4); Monocytes # (auto) 0.53 K/uL (0.11-0.59); Monocytes % (auto) 6.4 %; Neutrophils # (auto) 3.55 K/uL (1.40-6.50); Neutrophils % (auto) 43.1 %; Platelet Count 233 K/uL (130-400); RDW Coefficient of Variation 13.7 % (11.5-14.5); RDW Standard Deviation 46.4 fL (36.4-46.3); Red Blood Count 4.22 M/uL (4.20-5.40); White Blood Count 8.23 K/ul (4.8-10.8)
[2024-04-16 12:21] LABS: Adenovirus PCR Not Detected (NotDetected); Bordetella parapertussis PCR Not Detected (NotDetected); Bordetella pertussis PCR Not Detected (NotDetected); Chlamydia pneumoniae PCR Not Detected (NotDetected); Coronavirus 229E PCR Not Detected (NotDetected); Coronavirus CoV-2 (COVID19)PCR Not Detected (NotDetected); Coronavirus HKU1 PCR Not Detected (NotDetected); Coronavirus NL63 PCR Not Detected (NotDetected); Coronavirus OC43PCR Not Detected (NotDetected); Human Metapneumovirus PCR Not Detected (NotDetected); Influenza A PCR Not Detected (NotDetected); Influenza B PCR Not Detected (NotDetected); Mycoplasma pneumoniae PCR Not Detected (NotDetected); Parainfluenza Virus 1 PCR Not Detected (NotDetected); Parainfluenza Virus 2 PCR Not Detected (NotDetected); Parainfluenza Virus 3 PCR Not Detected (NotDetected); Parainfluenza Virus 4 PCR Not Detected (NotDetected); Respiratory Syncytial VirusPCR Not Detected (NotDetected); Rhinovirus/Enterovirus PCR Not Detected (NotDetected)
[2024-04-16 12:24] LABS: Alanine Aminotransferase 8 U/L (7-52); Albumin Globulin Ratio 1.4 (0.9-2); Alkaline Phosphatase 71 U/L (34-104); Anion Gap 5 (3-11); Aspartate Aminotransferase 16 U/L (13-39); BUN Creatinine Ratio 28.6 (10-20); Bilirubin,Total 0.2 mg/dl (0.2-1.0); Blood Urea Nitrogen 10 mg/dl (6-23); Carbon Dioxide 32 mmol/L (21-32); Chloride 104 mmol/L (98-107); Est GFR (African American) 137.1 ml/min; Est GFR (Non-African American) 118.3 ml/min; Globulin 2.9 gm/dl (2.5-4.0); Glucose 96 mg/dl (70-99(Fasting)); Magnesium 2.2 mg/dl (1.7-2.4); Potassium 4.7 mmol/L (3.5-5.1); Sodium 141 mmol/L (136-145); Total Protein 6.9 gm/dl (6.0-8.3)
[2024-04-16 12:30] LABS: Troponin I High Sensitivity 3.8 pg/ml (0-14)
[2024-04-16 12:35] LABS: INR 0.9 (0.9-1.1); Prothrombin Time 10.2 Seconds (9.0-12.0)
[2024-04-16 12:39] LABS: Thyroid Stimulating Hormone 4.167 uIu/ml (0.300-4.500)
[2024-04-16] MEDS: SODIUM CHLORIDE 0.9% 1,000 ML IV ONE (13:12)
[2024-04-16 14:37] LABS: Appearance Urine Clear (Clear); Bilirubin Urine Negative (Negative); Blood Urine Negative (Negative); Color Urine Yellow; Glucose Urine UA Negative (Negative); Ketones Urine Negative (Negative); Leukocyte Esterase Urine Negative (Negative); Nitrite Urine Negative (Negative); Protein Urine Negative (Negative); Specific Gravity Urine 1.012 (1.000-1.030); Urobilinogen Urine Negative (Negative)
--- NOTE | 2024-04-16 16:43 | History & Physical Report ---
Date of Service April 16, 2024 Assessment & Plan (1) Uncontrolled hypertension: Plan: Patient sent in for lethargy and wheezing x 2 days Uncontrolled HTN in the ED Forensic Accountant reports that patient was recently trialed on metoprolol, but became very hypotensive and was taken off it Not currently on antihypertensives BP measurements may be limited by patient's contracture of arms Will trial metoprolol tartrate 12.5 mg p.o. x 1 in the ED, and plan to start metoprolol tartrate 12.5 mg p.o. QAM A.m. CBC, BMP (2) Wheezing: Plan: Patient's photo retoucher reports that she has had an expiratory wheeze over the past 2 days ever since been placed on thickened liquids Hx of aspiration pneumonia No leukocytosis; afebrile CXR on arrival without acute findings Nonhypoxic on room air BioFire negative Will trial Xopenex nebulizer 3 mL Q6R as needed AM CXR ordered the morning of 04/17 Continuous pulse oximetry (3) Tachycardia: Plan: HR just over 100 bpm on arrival; this appears to be chronic EKG without acute changes Troponin WNL Continue telemetry monitoring (4) Dysphagia: Plan: Aspiration precautions and thickened liquids (5) Cerebral palsy: Plan: Patient unable to provide history Plan Disposition: Full code [place] thick liquids VTE PPx: Lovenox 40 mg SQ q24h History of Present Illness Chief Complaint: Referred by Doctor for wheezing Primary Care Provider: DO Beulah Fuller is a 59-year-old female with PMH of cerebral palsy, aspiration pneumonia, dysphagia, GERD, recurrent UTIs, hypothyroidism, and gastroenteritis. She presented on 04/16 at the [facility] for lethargy x 2 days and audible wheezes on exam. Patient lives at [facility], and is wheelchair- bound at baseline. Patient's photo retoucher (Nataliya) is at bedside and provides history, as patient is unable to do so. She reports that she was sent in by her PCP for high blood pressure and fast pulse. Her lethargy and expiratory wheeze has been ongoing x 2 days. She does not use supplemental oxygen at baseline. No CPAP at night. No sick contacts. While she has difficulty communicating her needs, she uses the word "back" whenever she is in pain. She also reportedly told the nurses that she wanted to come to the hospital, which was uncommon for her. She does have a history of aspiration pneumonia, but no noted aspiration or vomiting recently according to caretakers. She was recently switched to thickened liquids or drinks. Patient took her regular morning medications today, but not her 4 PM medications; no recent change in medications. Patient is not currently on any blood pressure medications. She saw [facility] provider (Dr. Stewart) on March 03 and was referred to [facility] ER for uncontrolled HTN. She was then placed on the lowest dose metoprolol, but on her return visit on March 08, her BP was very low and she was taken off metoprolol. Shortly after this, she was switched to thickened drinks, as they initially believe that dehydration was contributing. She currently drinks 8 thickened drinks per day to stay hydrated. Patient's photo retoucher reports that the patient's wheezing started shortly after she went on to thicken liquids. No smoking, tobacco use, or alcohol use. Patient is hypertensive at 183/113 and tachycardic at 106 bpm at time of admission; SpO2 98% on RA. ED course: NSS 1000 mL IV Unable to obtain ROS from patient. Spoke on the phone with patient's mother (Karie) and provided update regarding admission and labs/imaging. Patient's mother reports that there is no paperwork to the effect of the POA, but she is currently medical proxy. She reports that the patient's CODE STATUS will be full code. Allergies Allergy/AdvReac Type Severity Reaction Status Date / Time amoxicillin Allergy Unknown UNKNOWN Verified 01/07/24 20:13 clavulanic acid Allergy Unknown UNKNOWN Verified 01/07/24 20:13 Home Medications Medication Instructions Recorded Confirmed Type baclofen 10 mg tablet 5 mg PO TID 11/14/19 04/16/24 History baclofen 20 mg tablet 20 mg PO TID 11/14/19 04/16/24 History carbamide peroxide 6.5 % ear drops 5 - 10 drp otic (ear) WK 11/14/19 04/16/24 History (Debrox) docusate calcium 240 mg capsule 240 mg PO DAILY@1600,2000 11/14/19 04/16/24 History fexofenadine 180 mg tablet 180 mg PO QAM 11/14/19 04/16/24 History (Jayleen Allergy) fluticasone propionate 50 2 spray intranasal QAM 11/14/19 04/16/24 History mcg/actuation nasal spray,suspension ketoconazole 2 % topical cream 1 applic topical BID 11/14/19 04/16/24 History metronidazole 0.75 % topical cream 1 applic topical BID 11/14/19 04/16/24 History omeprazole 40 mg capsule,delayed 40 mg PO BID 11/14/19 04/16/24 History release paroxetine HCl 40 mg tablet 40 mg PO QAM 11/14/19 04/16/24 History quetiapine 200 mg tablet 200 mg PO HS 11/14/19 04/16/24 History quetiapine 25 mg tablet 12.5 mg PO .DAILY@1600 11/14/19 04/16/24 History vitamin B comp and C no.3 15 mg-10 1 cap PO QAM 11/14/19 04/16/24 History mg-50 mg-5 mg-300 mg capsule paroxetine HCl 20 mg tablet 20 mg PO QAM 06/28/20 04/16/24 History estradiol 0.01% (0.1 mg/gram) 1 applic vaginal 2XWK 05/12/21 04/16/24 History vaginal cream mirtazapine 7.5 mg tablet 7.5 mg PO HS 05/12/21 04/16/24 History hydroxyzine HCl 25 mg tablet See Rx Instructions .Route .COMPLEX 05/17/21 04/16/24 History famotidine 20 mg tablet 20 mg PO HS 01/31/22 04/16/24 History multivitamin (Daily-Donovan tablet) 1 tab PO DAILY 01/31/22 04/16/24 History glycerin (adult) 1 supp MD DAILY PRN Constipation 10/09/22 04/16/24 History levothyroxine 50 mcg tablet 50 mcg PO QAM 10/09/22 04/16/24 History polyethylene glycol 3350 17 17 g PO QAM 10/09/22 04/16/24 History gram/dose oral powder (Miralax) Lactobacillus rhamnosus GG 5 1 tab PO DAILY 05/21/23 04/16/24 History billion cell chewable tablet (Culturelle Kids Probiotics) albuterol sulfate 2.5 mg/3 mL 2.5 mg inhalation Q6H PRN Wheezing 05/21/23 04/16/24 History (0.083 %) solution for nebulization aluminum hydrox-magnesium carb 254 10 ml PO ACHS PRN Acid Reflux 05/21/23 04/16/24 History mg-237.5 mg/5 mL oral suspension (Gaviscon Extra Strength) chlorhexidine gluconate 0.12 % 1 applic PO 2XWK 05/21/23 04/16/24 History mouthwash fluoride (sodium) 1.1 % dental 1 applic dental BID 05/21/23 04/16/24 History cream (Denta 5000 Plus) onabotulinumtoxinA 100 unit See Rx Instructions .Route .COMPLEX 05/21/23 04/16/24 History solution for injection (Botox) sennosides 8.6 mg tablet (senna) 8.6 mg PO DAILY PRN Constipation 05/21/23 04/16/24 History vitamin A and D See Rx Instructions .Route 05/21/23 04/16/24 History .COMPLEX PRN WITH DIAPER CHANGES acetaminophen 500 mg tablet 1,000 mg PO Q6H PRN PAIN/FEVER 01/07/24 04/16/24 History (Tylenol Extra Strength) divalproex 125 mg capsule,delayed 625 mg PO BID 01/07/24 04/16/24 History release sprinkle (Depakote Sprinkles) magnesium hydroxide 311 mg 933 mg PO HS PRN Constipation 01/07/24 04/16/24 History chewable tablet (Sweet Milk of Magnesia) Past Med/Surg History Problem List (Updated 04/16/24 @ 17:24 by Juan Felix PA-C) Tachycardia Hypertension Wheezing Shortness of breath (Acute) Uncontrolled hypertension (Acute) Uncontrolled hypertension Aspiration into lower respiratory tract Gastroenteritis Acute dehydration (Acute) Hypokalemia (Acute) Hypomagnesemia (Acute) Acute dehydration (Acute) GERD (gastroesophageal reflux disease) Nausea & vomiting History of back problems Encounter for pre-operative examination Cerebral palsy (Chronic) Aspiration pneumonia (Acute) Influenza B (Acute) Dehydration (Acute) High thyroid stimulating hormone (TSH) level Hypothyroidism (acquired) Urinary tract infection (Acute) Febrile illness Fever (Acute) UTI (urinary tract infection) GERD (gastroesophageal reflux disease) Dysphagia Drooling Weight loss Sepsis Dysphasia Constipation Cerebral palsy (Chronic) Mental retardation (Chronic) Medical History Cerebral palsy COVID-19 Vomiting and diarrhea GERD (gastroesophageal reflux disease) History of kidney stones Refuses to eat Dehydration Constipation Dysphasia Cerebral palsy Mental retardation Abdominal pain Intractable vomiting Colitis Sepsis Surgical History Hx of colonoscopy Surgical history unknown Family History Father Diabetes Other Asthma Cancer Hypertension No family history of adverse response to anesthesia No family history of bleeding disorder Social History Smoking Status: Never smoker Second Hand Exposure: No; Do You Dip or Chew Tobacco: No; Hx Alcohol Use: No Hx Substance Use: No Preferred Language: Albanian Communication Ability: Unable Communication Ability Comment: Able to respond yes/no sometimes Sample Preparation Supervisor Required: No Beliefs That Will Affect Care: None Current Living Situation: Personal Care Facility Current Living Situation Comment: [facility] 08/04 caregiver current occupational status: disabled Feels Safe at Home: Yes Safety Concerns: Feels Safe At This Time Diet: regular during the past year weight has: decreased > 10 lbs Assistive Devices: Mechanical Lift and Wheelchair Review of Systems Review of Systems: See HPI above Physical Exam Physical Exam: General: no acute distress; non-toxic appearing; cooperative; SpO2 98% on RA HEENT: normocephalic, atraumatic; no scleral icterus; PERRLA; left eye deviation inward; unable to assess vision and hearing Neck: supple; no lymphadenopathy; trachea midline Skin: warm, dry without signs of tenting; no cyanosis; no rashes, bruising, lesions, or erythema noted CV: chest wall NTP; RR, tachycardic around 106 bpm; S1/S2 normal; no murmurs/rubs/gallops; pulses intact and symmetric at radial, DP, and PT Lungs: no acute respiratory distress; symmetrical chest wall expansion; expiratory wheezing on exam bilaterally ABD: Soft, NTP; BS present; no rebound/guarding; no distention; negative CVA tenderness MSK: Significant scoliosis; significant muscular atrophy; spine is NTP; no edema noted in the LEs b/l, nonerythematous; contractures in the upper and lower extremities bilaterally; internal rotation of arms, external rotation of feet Neuro: Unable to assess for alertness and orientation; patient does not respond to questioning; no focal deficits appreciated on exam; unable to assess sensation Results & Data Results & Data Vital Signs (Past 12 Hours) Vital Signs Temp Pulse Resp BP Pulse Ox O2 Del Method 04/16/24 15:11 106 H 04/16/24 15:00 105 H 18 183/131 H 95 04/16/24 14:00 105 H 18 94 04/16/24 13:39 105 H 22 97 04/16/24 12:36 102 H 18 95 Room Air 04/16/24 12:12 101 H 21 156/112 H 95 Room Air 04/16/24 11:03 110 H 04/16/24 10:38 36.5 C 113 H 18 196/97 H 97 Room Air Laboratory Results Abnormal lab results 04/16/24 04/16/24 Range/Units 11:48 14:13 RDW Std Deviation 46.4 H (36.4-46.3) fL Lymph # (Auto) 3.98 H (1.20-3.40) K/uL Creatinine 0.35 L (0.6-1.2) mg/dl BUN/Creatinine Ratio 28.6 H (10-20) Urine pH 8.0 H (4.5-7.5) Diagnostic Findings Chest X-Ray 04/16/24 10:45 XR chest 1V portable HISTORY: confusion COMPARISON: Chest 08/28/2023. FINDINGS: Rotated study. No pneumothorax. No pleural effusions. Small left basilar linear densities favor subsegmental atelectasis or scarring. No new focal lung consolidations to suggest a pneumonia. No evidence for pulmonary edema. The heart is normal in size. No acute fractures. A right cervical rib is noted. S-shaped scoliosis. IMPRESSION: No significant change compared to the prior study. No acute process. ACT 112: Negative or not required by law. Electronically signed by: Juan Galaviz M.D. 04/16/2024 11:43 AM ECG Additional Comments: ECG revealed sinus tachycardia at 112 bpm; QTc 453 Code Status & VTE Plan Code Status Full code VTE Prophylaxis Plan VTE Prophylaxis will be ordered: Yes Supervising Physician Co-Signing Physician Notes Patient seen and examined, chart reviewed, case discussed with Juan Felix PA-C and I agree with the assessment and plan as above except as otherwise noted Labs and images reviewed 59-year-old female with past medical history of cerebral palsy with recently poorly controlled hypertension, tachycardia concern for aspiration. CBC and BMP are unremarkable. Chest x-ray is unremarkable. She is on room air. Patient wa s recommended for observation as caregiver notes was recently seen at [facility], placed on blood pressure medicine, discharged but continues to appear outside of her normal baseline and do not feel she is safe to return home. Do not see any evidence of superimposed pneumonia, may have had some aspiration pneumonitis. No antibiotics are currently indicated. Patient is hypertensive, was previously on metoprolol but this was discontinued for hypotension. Accuracy of blood pressure measurements are limited by contractures. Would not be aggressive in treating blood pressure as a result of this. On attempted reasonable measurements is greater than 180 on multiple measures, will add metoprolol 12.5 mg tartrate and follow clinical response (was previously on 25- 50 mg). +wheezing on re-eval. Nebulizers ordered, Xopenex ordered instead of albuterol for underlying tachycardia. Agree w/ above. PG Care Time/CCT Total # of Minutes Spent Total Time Spent with Patient: Total time spent is greater than 50% in coordination of care (as documented) at patient's floor/unit and/or counseling patient: [place] [id number] INT INP/OBS CARE 3/75MIN Patient Type Established Medical Decision Making High Complexity Diagnoses Uncontrolled hypertension I10 Wheezing R06.2 Tachycardia R00.0 Dysphagia R13.10 Cerebral palsy G80.9 Cerebral palsy type: unspecified type (5) Cerebral palsy Cerebral palsy type: unspecified type Qualified Code(s): G80.9 - Cerebral palsy, unspecified
[2024-04-16] MEDS ORDERED: BACLOFEN 10 MG TAB PO ONE (17:34)
--- OUTSIDE RECORDS SUMMARY | 2024-04-16 17:38 | External Medical Summary | Continuity of Care Document ---
Author Name Unknown Organization [address] Address [address] [place] [address] [address] [place], [place] [id number] Care Team Providers Care Manufacturing Recruiter Name Role Phone Leighann Palumbo Primary Care Physician [phone] Encounter [facility] [id number] Date(s): 04/09/24 - 04/09/[address] [facility] [address] [facility], [address] [place] [address] [phone] Encounter Diagnosis Foul smelling urine(Discharge Diagnosis) - 04/09/24 Hypotension(Discharge Diagnosis) - 04/09/24 Discharge Disposition: Home or Self Care Attending Physician: PINA Stewart Katy Marie Referring Physician: PINA Stewart Katy Marie Allergies, Adverse Reactions, Alerts Substance Criticality Severity Reaction Reaction Severity Status amoxicillin unknown Active Augmentin unknown Active Assessment and Plan Extracted from: Title:Office Visit Note Author:PINA Stewart Kat y Marie Date:04/09/24 1.Hypotension Problem isAcute Goal:resolution Data:_ Plan: stop metoprolol. Staff will continue to monitor at home. RTC 4-6 weeks continue hydration- discussed oral rehydration. Can consider MTU infusion. Foul smelling urine Problem isChronic - not controlled Goal:maintenance Data:_ Plan:repeat urine culture previous cultures negative. Suspect concentrated urine. continue oral rehydration labs reviewed caregiververbalizes understanding and agrees with landen well asreturn precautions. Immunizations Given and Recorded Vaccine Date Status Refusal Reason influenza virus vaccine, inactivated 07/23/23 Give n influenza virus vaccine, inactivated 06/16/22 Kahlil rded influenza virus vaccine, inactivated 06/09/21 Give n influenza virus vaccine, inactivated 06/08/20 Give n influenza virus vaccine, inactivated 06/12/19 Give n influenza virus vaccine, inactivated 07/15/18 Give n influenza virus vaccine, inactivated 07/09/17 Give n influenza virus vaccine, inactivated 07/10/16 Give n influenza virus vaccine, inactivated 07/13/15 Give n influenza virus vaccine, inactivated 07/08/14 Give n influenza virus vaccine, inactivated 07/06/13 Give n influenza virus vaccine, inactivated 06/05/12 Give n tetanus/diphtheria/pertuss, acel (Tdap) 1 11/08/22 Given tetanus/diphtheria/pertuss, acel (Tdap) 09/25/12 G iven tetanus/diphtheria/pertuss, acel (Tdap) 10/16/95 R ecorded SARS-CoV-2 (COVID-19) mRNA-1273 vaccine 08/01/21 R ecorded SARS-CoV-2 (COVID-19) mRNA-1273 vaccine 08/01/21 R ecorded SARS-CoV-2 (COVID-19) mRNA-1273 vaccine 11/09/20 R ecorded SARS-CoV-2 (COVID-19) mRNA-1273 vaccine 10/12/20 R ecorded zoster vaccine, inactivated 08/18/20 Recorded zoster vaccine, inactivated 12/01/19 Recorded zoster vaccine, inactivated 09/15/19 Recorded pneumococcal 23-valent vaccine 11/05/19 Given pneumococcal 23-valent vaccine 07/23/02 Recorded pneumococcal 23-valent vaccine 08/26/01 Recorded pneumococcal 13-valent vaccine 08/21/19 Given tetanus toxoids-diphtheria, Td (Adult) 01/08/06 Re corded hepatitis B adult vaccine 06/17/01 Recorded hepatitis B adult vaccine 01/15/01 Recorded hepatitis B adult vaccine 12/13/00 Recorded 1Early/Late Reason: Early/Late Reason: Other : Rooming another pt Medications A & D prevent ointment Start: 07/20/22 4:28:00 PM EDT, A & D prevent ointment, eRx Product Type: Supply, See Instructions, Disp# 1 each, Refills: 6, Apply topically to buttock every time attends are changed as barrier to protect the skin, Pharmacy [facility] Start Date: 07/20/22 Status: Ordered Acid Gone 95 mg-358 mg/15 mL oral suspension Start: 04/12/23 11:23:00 AM EDT, See Instructions, Disp# 355 mL, Refills: 11, TAKE 2 TEASPOONSFUL (10ML) BY MOUTH AFTER MEALS AND AT BEDTIME NEEDED FOR BREAKTHROUGH REFLUX (80ML/DAY) REORDER WHENNEEDED-NOT A CYCLE FILL MED, Pharmacy: [facility] Start Date: 04/12/23 Status: Ordered Allergy Relief (Fexofenadine HCl) 180 mg oral tablet Start: 03/25/24 1:39:00 PM EDT, 1 tab, PO, Daily, Disp# 31 tab, Refills: 0, DX: ALLERGIES), Pharmacy: [facility] Start Date: 03/25/24 Status: Ordered Atrovent 42 mcg/inh nasal spray Start: 06/05/23 12:48:00 PM EDT, 2 spray, each nostril, tid, Disp# 1 each, Refills: 0, Note to Pharmacy: use 3x/day x 2 weeks, PRN: as needed for post- nasal mucous/rhonchi, Pharmacy: [facility] Start Date: 06/05/23 Stop Date: 06/19/23 Status: Ordered baclofen 10 mg oral tablet Start: 08/21/23 9:41:00 AM EST, See Instructions, Disp# 42 tab, Refills: 5, TAKE 1/2 TABLET (5MG) BYMOUTH THREE TIMES DAILY FOR BACK SPASMS *TAKE ALONG WITH 20MG TO EQUAL 25MG*, Pharmacy: [facility] Start Date: 08/21/23 Status: Ordered baclofen 10 mg tablet Start: 03/04/24 2:29:00 PM EDT, baclofen 10 mg tablet, See Instructions, Disp# 47 tab, Refills: 1, TAKE ONE-HALF TABLET (5MG) BY MOUTH THREE TIMES DAILY *TAKE ALONG WITH 20MG TAB = 25MG DOSE (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 Start Date: 02/24/24 Status: Ordered Botox 100 units injection Start: 06/25/23 3:46:00 PM EDT, See Instructions, Disp# 2 each, Refills: 11, USE DIRECTED FOR BILATERAL UPPER EXTREMITY INTRAMUSCULARLY INJECTIONS FOR DYSTONIA SECONDARY TO CEREBRAL PALSEY REORDER WHEN NEEDED-NOT A CYCLE FILL MED *[facility] [phone]*, Pharmacy: [facility] Start Date: 06/25/23 Status: Ordered Culturelle for Kids oral tablet, chewable Start: 04/07/24 2:51:00 PM EDT, 1 tab, PO, Daily, Disp# 30 tab, Refills: 0, CHEW. DX: SUPPLEMENT), Pharmacy: [facility] Start Date: 04/07/24 Status: Ordered Debrox Earwax Removal Kit 6.5% otic solution Start: 07/19/22 12:34:00 PM EDT, See Instructions, Disp# 30 mL, Refills: 1, 5 to 10 drop both ears weekly, Pharmacy: [facility] Start Date: 07/19/22 Status: Ordered divalproex sodium 125 mg oral delayed release capsule See Instructions, 5 capsules twice daily Start Date: 10/17/22 Status: Ordered docusate calcium 240 mg oral capsule Start: 03/25/24 1:40:00 PM EDT, 1 cap, PO, bid, Disp# 62 each, Refills: 0, EVENING AND BEDTIME) (DX:CONSTIPATION), Pharmacy: [facility] Start Date: 03/25/24 Status: Ordered doxycycline hyclate 100 mg oral capsule Start: 05/17/23 11:12:00 AM EDT, 1 cap, PO, bid, Disp# 20 cap, Pharmacy: [facility] Start Date: 05/17/23 Stop Date: 05/27/23 Status: Ordered estradiol 0.1 mg/g vaginal cream Start: 04/08/24 2:11:00 PM EDT, See Instructions, Disp# 42.5 g, Refills: 0, APPLY 1/4" CREAM TOPICALLY ON 2X2, GENTLY SWIPE OVER URETHRA 2 TIMES WEEKLY ON SATURDAY AND SATURDAY AT BEDTIME (DX MENOPAUSE), Pharmacy: [facility] Start Date: 04/08/24 Status: Ordered famotidine 20 mg oral tablet Start: 03/25/24 1:39:00 PM EDT, 1 tab, PO, qhs, Disp# 31 tab, Refills: 0, DX:GERD), Pharmacy: [facility] Start Date: 03/25/24 Status: Ordered ferrous sulfate 325 mg (65 mg elemental iron) oral tablet TAKE 1 TABLET BY MOUTH EVERY OTHER DAY Start Date: 10/17/22 Status: Ordered Fleet Glycerin Suppositories Adult rectal suppository Start: 05/24/23 4:20:00 PM EDT, 1 supp, UT, Daily, Disp# 30 supp, Refills: 11, as needed, Pharmacy: [facility] Start Date: 05/24/23 Status: Ordered fluticasone 50 mcg/inh nasal spray Start: 12/12/23 11:53:00 AM EDT, See Instructions, Disp# 16 g, Refills: 11, INSTILL 2 SPRAYS INTO EACH NOSTRIL ONCE DAILY FOR FOR ALLERGIES, Pharmacy: [facility] Start Date: 12/12/23 Status: Ordered hydrocortisone 1% topical cream Start: 06/02/21 4:26:00 PM EDT, 1 appl, topical, bid, Disp# 45 g, Pharmacy: [facility] Start Date: 06/02/21 Stop Date: 06/16/21 Status: Ordered hydrOXYzine hydrochloride 25 mg oral tablet Start: 03/25/24 1:40:00 PM EDT, See Instructions, Disp# 62 tab, Refills: 0, TAKE ONE-HALF TABLETBY MOUTH TWICE A DAY (DX: ANXIETY) and TAKE (1) TABLET BY MOUTH AT BEDTIME (DX: ANXIETY), Pharmacy:[facility] Start Date: 03/25/24 Status: Ordered ketoconazole 2% topical cream Start: 01/14/24 5:19:00 PM EDT, See Instructions, Disp# 60 g, Refills: 0, APPLY TOPICALY EVERY MORNING TO RED RASH ON TEMPLES, EYEBROWS, BACK OF EARS AND UNDER BREAST FOR RASH, Pharmacy: [facility] Start Date: 01/14/24 Status: Ordered levothyroxine 50 mcg (0.05 mg) oral tablet Start: 03/25/24 1:40:00 PM EDT, 1 tab, PO, Daily, Disp# 31 tab, Refills: 0, DX HYPOTHYROIDISM., Pharmacy: [facility] Start Date: 03/25/24 Status: Ordered lisinopril 10 mg oral tablet Start: 05/29/23 10:30:00 AM EDT, 1 tab, PO, Daily Start Date: 05/29/23 Status: Ordered Macrobid 100 mg oral capsule Start: 01/20/24 2:39:00 PM EDT, 1 cap, PO, bid, Disp# 14 cap, Refills: 0, Pharmacy: [facility] Start Date: 01/20/24 Stop Date: 01/27/24 Status: Ordered METOPROLOL TARTRATE 25 MG TABS Start: 04/09/24 2:15:00 PM EDT, METOPROLOL TARTRATE 25 MG TABS Start Date: 04/09/24 Status: Ordered metroNIDAZOLE 0.75% topical cream Start: 07/24/23 3:19:00 PM EST, See Instructions, Disp# 45 g, Refills: 5, APPLY TOPICALLY TO FACE TWICE DAILY FOR RASH, Pharmacy: [facility] Start Date: 07/24/23 Status: Ordered mirtazapine 7.5 mg oral tablet Start: 11/17/20 1:48:00 PM EST, 1 tab, PO, qhs Start Date: 11/17/20 Status: Ordered omeprazole 40 mg oral delayed release capsule Start: 02/27/24 11:10:00 AM EDT, See Instructions, Disp# 56 cap, Refills: 5, TAKE 1 CAPSULE BY MOUTHTWICE DAILY AT 8AM AND 8PM FOR GERD, Pharmacy: [facility] Start Date: 02/27/24 Status: Ordered PARoxetine 20 mg oral tablet Start: 08/16/22 4:15:00 PM EST, 1 tab, PO, Daily, Disp# 90 tab, Refills: 3, Pharmacy: [facility] Start Date: 08/16/22 Status: Ordered wynne Start: 01/30/24 3:54:00 PM EDT, ricci eRx Product Type: Supply, See Instructions, Disp# 30 tab, Refills: 11, Take 3 captlets by mouth at bedtime, if needed for constipation. no bowel movement in 2days., Pharmacy [facility] Start Date: 01/30/24 Status: Ordered polyethylene glycol 3350 oral powder for reconstitution Start: 03/03/24 4:44:00 PM EDT, See Instructions, Disp# 510 g, Refills: 0, MIX 17 GRAMS ( ONE CAPFUL) IN 8 OUNCES OF LIQUID AND DRINK BY MOUTH ONCE DAILY FOR CONSTIPATION, Pharmacy: [facility] Start Date: 03/03/24 Status: Ordered Potassium Chloride (Mjv-Ivwd-Mvf M10) 10 mEq oral tablet, extended release Start: 05/30/23 11:35:00 AM EDT, 1 tab, PO, Daily, Disp# 30 tab, Refills: 0, Pharmacy: [facility] Start Date: 05/30/23 Stop Date: 06/29/23 Status: Ordered QUEtiapine 200 mg oral tablet Start: 06/20/23 3:25:00 PM EDT, See Instructions, Disp# 30 tab, Refills: 0, 200mg at 8m, Pharmacy: [facility] Start Date: 06/20/23 Status: Ordered QUEtiapine 25 mg oral tablet Start: 06/20/23 3:25:00 PM EDT, See Instructions, Disp# 30 tab, Refills: 0, 25mg 8am, 200 mg at 8 pm, Pharmacy: [facility] Start Date: 06/20/23 Status: Ordered Senokot 8.6 mg oral tablet Start: 06/20/23 3:25:00 PM EDT, 1 tab, PO, Daily, Disp# 30 tab, Refills: 1, as needed with plenty ofwater, PRN: as needed for constipation, Pharmacy: [facility] Start Date: 06/20/23 Status: Ordered Tab-A-Donovan oral tablet Start: 03/25/24 1:39:00 PM EDT, 1 tab, PO, Daily, Disp# 31 tab, Refills: 0, DX: SUPPLEMENT), Pharmacy: [facility] Start Date: 03/25/24 Status: Ordered Thick-It Start: 04/03/24 2:19:00 PM EDT, Thick-It, eRx Product Type: Supply, See Instructions, Disp# 2 each, Refills: 0, Please add 5 teaspoons of powder to 8oz of water or fluid, 4 times a day (With meals andevening). Please offer patient up to 4 additional daily doses if desired by patient., Pharmacy [facility] Start Date: 04/03/24 Status: Ordered Mental Status 04/09/24 Barriers to Learning one year Cognitive deficit Mandatory Health Literacy Documentation Yes Health Literacy Communication Barriers N ever Primary Language Moldovan Problem List Condition Confirmation Course Effective Dates Status H ealth Status Informant Actinic keratosis Confirmed Active Agitation Confirmed Active Allergy to penicillin Confirmed Active Anarthria Confirmed Active Weight disorder Confirmed Active Chronic constipation Confirmed Active Club foot Confirmed Active Colon cancer screening Confirmed Active Constipation Confirmed Active Decreased appetite Confirmed Active DEPRESSION Confirmed Active Dislocated hip Confirmed Active DYSMENORRHEA Confirmed Active Dysphagia Confirmed Active Family history of melanoma Confirmed Active Fibrous ankylosis 1 Confirmed Active Arm dysfunction Confirmed Active Focal dystonia Confirmed Active Bilateral sacral insufficiency fracture Confirmed Active Gall stones Confirmed Active GERD (gastroesophageal reflux disease) Confirmed Active H/O pulmonary aspiration Confirmed Active H/O influenza Confirmed Active Hypertension Confirmed Active HTN (hypertension) Confirmed Active Hypokalemia Confirmed Active Hypothyroidism Confirmed Active Left knee pain Confirmed Active Mood disorder Confirmed Active Nasal congestion Confirmed Active Osteoporosis Confirmed Active Left leg pain Confirmed Active Breast cancer screening by mammogram Confirmed Active Pre-op exam Confirmed Active Decubital ulcer Confirmed Active Bed sore on buttock Confirmed Active Recurrent aspiration pneumonia Confirmed Active Rosacea Confirmed Active Scoliosis Confirmed Active Seasonal allergic rhinitis Confirmed Active Sleep disorder Confirmed Active Spasticity Confirmed Active Cerebral palsy Confirmed Active UTI symptoms Confirmed Active Urine finding Confirmed Active Weight loss Confirmed Active Well adult exam Confirmed Active 1Knees Diagnosis Diagnosis Type Effective Dates Health Status Clinical Service Informant Foul smelling urine Discharge Diagnosis 04/09/24 Non-Specified Hypotension Discharge Diagnosis 04/09/24 Non-Specified Procedures Procedure Date Related Diagnosis Body Site Status Shave biopsy 12/12/23 Completed Stent replacement 1 08/01/22 Compl eted Endoscopy 2 05/09/22 Completed ERCP 3 05/09/22 Completed Upper GI (gastrointestinal) endoscopy 4 02/05/22 Completed Chest x-ray 5 06/24/20 Completed Chest X-ray 6 11/16/19 Completed Chest x-ray 7 09/03/19 Completed FL video swallow 8 07/16/19 Comple jackelyn Chest X-ray 9 12/30/18 Completed Ultrasound of left and right breast 10 11/20/18 Completed X-ray 11 09/19/18 Completed Computed tomography of chest without contrast (procedure) 05/05/18 Completed Plain chest X-ray (procedure) 05/05/18 Completed Plain chest X-ray (procedure) 12/25/17 Completed Ultrasound 12 11/08/17 Completed Plain chest X-ray (procedure) 10/06/17 Completed Femur X-ray (procedure) 05/14/17 C ompleted Femur X-ray (procedure) 05/14/17 C ompleted Radiography of hip (procedure) 05/14/17 Completed Tibia and/or fibula X-ray (procedure) 05/14/17 Completed Videoswallow (procedure) 05/10/17 Completed Doppler ultrasonography of v ein of lower limb (procedure) 04/18/17 Completed Venous doppler ultrasonograp hy,left lower, ext unilateral 04/18/17 Completed ULTRASOUND BREAST COMPLETE 13 11/05/16 Completed Mammogram 07/22/14 Completed KUB X-ray 14 06/09/14 Completed Swallowing function, with cineradiography/videoradiography 15, 16 05/20/14 Completed Knee Surgery 1999 Completed Bilateral Adductor Tenotomy 1970 Completed Club Feet 1970 Completed Appendectomy Completed Cholecystectomy Completed Hernia Completed Hysterectomy Completed Radiation therapy care Co mpleted Tonsillectomy Completed 1Two stents were removed from the common bile duct one new plastic biliary stent was placed into the gallbladder. 2upper endo for GI pain: [place] of [place] colored mucosa were present. the max longitudinal extent of these esophopgeal mucosal changes was 1CM in length. Biopies were taken. Sent for Heliobacter pylori testing. [place] colored mucosa suspicious for Zhao's esophagus biopsied. Erythematous mucosa in the stomach biopsied. *Perform an upper endoscopic ultrasound * Use PPI daily * Follow anti-reflux regimen * repeat endo for surveillance based on path results 3mild inflammation end of the esophagus with consisten acid reflux 4gastritis. biopsy 5IMPRESSION: Bibsilar atelectasis with now active diease in the chest. 6Impression 1. Mildly low volumes though slightly improved aeration of the lung base 2. No new focal infiltrate 3. mild hilar vascular prominence 7Mild degraded examination. No acute cardiopulmonary disease. 8No aspiration identified. Please see speech pathologist report for findings. 9Techinally compromised exam. Suspicion of developing congestive failure. 10Limited exam. Within the limitations of the exam, no sonographic evidence of malignancy in either breast. 11IMPRESSION: No active disease in the chest. 12Breast 13bilat d/t unable to tolerate and adequately position for mammogram 14Abd series--no obstruction but has severe rectosigmoid fecal impaction. 15Speech path mild oral stage dysphagia 16VFS study radilogy interpretation--disorganized oral motility, moderate vallecular pooling, hypopharygeal motility, no aspiration. 17Casts put on Vital Signs Most recent to oldest [Reference Range]: 1 Temperature [36.5-37.9 DegC] 36.2 DegC *LOW* (04/09/24 2:18 PM) Heart Rate 75 bpm (04/09/24 2:18 PM) Blood Pressure 80/60mmHg (04/09/24 2:18 PM) Cuff Pulse Pressure 20 mmHg (04/09/24 2:18 PM) Social History Social History Type Response Smoking Status Never smoked cigaret galilea Sex Female Sex Representation Female (finding) FCM Outpt Note * PINA Stewart, Lisset Darling: PERFORM Event Display: FCM Outpt Note Authored Date: [id number] Chief Complaint Er f/u [facility]. Care person said they really didn't do anything for her there. bp and pulse better. History of Present Illness Recheck BP: 112/68 ER started her on metoprolol for HTN and tachycardia. Now having hypotension. Has been able to drink with thick-it working toward 6-8 glasses of water a day. voiding often, though it was foul smelling. Review of Systems A total of 10 systems were reviewed. Pertinent positive and negatives addressed in HPI, all other findings are negative. Physical Exam Vitals & Measurements T:36.2C HR:75(Monitored) BP:80/60 SpO2:98% PHQ2 Data(Data Documented on:04/09/2024 14:16) Emotional health assessment NEGATIVE Constitutional: Alert and oriented, No acute distress, Well-appearing, Normal mood and affect Respiratory: Lung sounds are clear, equal chest rise and fall with breathing, no pursed lip breathing Cardiovascular: Heart sounds regular rate and rhythm, without gallop or murmur, no edema Skin: Warm, pink, dry, intact Assessment/Plan 1.Hypotension Problem isAcute Goal:resolution Data:_ Plan: stop metoprolol. Staff will continue to monitor at home. RTC 4-6 weeks continue hydration- discussed oral rehydration. Can consider MTU infusion. Foul smelling urine Problem isChronic - not controlled Goal:maintenance Data:_ Plan:repeat urine culture previous cultures negative. Suspect concentrated urine. continue oral rehydration labs reviewed caregiververbalizes understanding and agrees with landen well asreturn precautions. Attestation I attest that I have spent _35minutes in care and coordination of this patient. 5min previsit: chart review and preparation 30min [id number]: obtaining HPI, PE, discussing Assessment and Plan, and other pertinent discussions/decisionsr/t care _min postvisit: coordination of care, orders, and documentation/paperwork Problem List/Past Medical History Ongoing Actinic keratosis Agitation Allergy to penicillin Anarthria Arm dysfunction Bed sore on buttock Bilateral sacral insufficiency fracture Breast cancer screening by mammogram Cerebral palsy Chronic constipation Club foot Colon cancer screening Constipation Decreased appetite Decubital ulcer DEPRESSION Dislocated hip DYSMENORRHEA Dysphagia Family history of melanoma Fibrous ankylosis Focal dystonia Gall stones GERD (gastroesophageal reflux disease) H/O influenza H/O pulmonary aspiration HTN (hypertension) Hypertension Hypokalemia Hypothyroidism Left knee pain Left leg pain Mood disorder Nasal congestion Osteoporosis Pre-op exam Recurrent aspiration pneumonia Rosacea Scoliosis Seasonal allergic rhinitis Sleep disorder Spasticity Urine finding UTI symptoms Weight disorder Weight loss Well adult exam Resolved Acute UTI Body aches Bronchitis Burn Cerebral palsy Cough Dysuria Excessive cerumen in both ear canals Fecal impaction Heart burn Insomnia MENTAL RETARDATION Multiple fracture Pneumonia Seborrheic dermatitis Seizure Skin irritation SPASM OF MUSCLE Subluxation of left knee Tachycardia Thigh pain Tibial fracture Urinary disorder Urinary retention Viral URI Wax in ear Well adult exam Procedure/Surgical History Shave biopsy| Service Date: 12/12/2023Stent replacement| Service Date: 08/01/2022Endoscopy| Service Date: 05/09/2022ERCP| Service Date: 05/09/2022Upper GI (gastrointestinal) endoscopy|Service Date: 02/05/2022hest x-ray| Service Date: 06/24/2020Chest X-ray| Service Date: 11/16/2019Chest x-ray| Service Date: 12/19/2019FL video swallow| Service Date: 07/16/2019Chest X-ray| Service Date: 12/30/2018Ultrasound of left and right breast| Service Date: 11/20/2018X-ray| Service Date: 09/19/2018Plain chest X-ray (procedure)| Service Date: 05/05/2018Computed tomography of chest without contrast (procedure)| Service Date: 05/05/2018Plain chest X-ray (procedure)| Service Date: 12/25/2017Ultrasound| Service Date: 11/08/2017Plain chest X-ray (procedure)| Service Date: 10/06/2017Tibia and/or fibula X-ray (procedure)| Service Date: 05/14/2017Radiography of hip (procedure)| Service Date: 05/14/2017Femur X-ray (procedure)| Service Date: 05/14/2017Femur X-ray (procedure)| Service Date: 05/14/2017Videoswallow (procedure)| Service Date: 05/10/2017Venous doppler ultrasonography,left lower, ext unilateral| Service Date: 04/18/2017Doppler ultrasonography of vein of lower limb (procedure)| Service Date: 04/18/2017ULTRASOUND BREAST COMPLETE| Service Date: 11/05/2016Mammogram| Service Date: 07/22/2014KUB X-ray| Service Date: 06/09/2014Swallowing function, with cineradiography/videoradiography| Service Date: 05/20/2014Knee Surgery| Service Date: 1999Bilateral Adductor Tenotomy| Service Date: 1970Cl Feet| Service Date: 1970Radiation therapy careHysterectomyCholecystectomyHerniaAppendectomyTonsillectomy Medications aluminum hydroxide-magnesium carbonate(Acid Gone 95 mg-358 mg/15 mL oral suspension), See Instructions baclofen(baclofen 20 mg oral tablet), See Instructions, 5 refills baclofen(baclofen 10 mg oral tablet), See Instructions, 5 refills carbamide peroxide otic(Debrox Earwax Removal Kit 6.5% otic solution), See Instructions, 1 refills divalproex sodium(divalproex sodium 125 mg oral delayed release capsule), See Instructions docusate(docusate calcium 240 mg oral capsule), 1 cap, PO, bid doxycycline(doxycycline hyclate 100 mg oral capsule), 100 mg= 1 cap, PO, bid estradiol topical(estradiol 0.1 mg/g vaginal cream), See Instructions famotidine(famotidine 20 mg oral tablet), 1 tab, PO, qhs ferrous sulfate(ferrous sulfate 325 mg (65 mg elemental iron) oral tablet) fexofenadine(Allergy Relief (Fexofenadine HCl) 180 mg oral tablet), 1 tab, PO, Daily fluticasone nasal(fluticasone 50 mcg/inh nasal spray), See Instructions, 11 refills glycerin(Fleet Glycerin Suppositories Adult rectal suppository), 1 supp, UT, Daily, 11 refills hydrocortisone topical(hydrocortisone 1% topical cream), 1 appl, topical, bid hydrOXYzine(hydrOXYzine hydrochloride 25 mg oral tablet), See Instructions ipratropium nasal(Atrovent 42 mcg/inh nasal spray), 2 spray, each nostril, tid, PRN ketoconazole topical(ketoconazole 2% topical cream), See Instructions lactobacillus rhamnosus GG(Culturelle for Kids oral tablet, chewable), 1 tab, PO, Daily levothyroxine(levothyroxine 50 mcg (0.05 mg) oral tablet), 1 tab, PO, Daily lisinopril(lisinopril 10 mg oral tablet), 10 mg= 1 tab, PO, Daily metroNIDAZOLE topical(metroNIDAZOLE 0.75% topical cream), See Instructions, 5 refills mirtazapine(mirtazapine 7.5 mg oral tablet), 7.5 mg= 1 tab, PO, qhs multivitamin(Tab-A-Donovan oral tablet), 1 tab, PO, Daily nitrofurantoin(Macrobid 100 mg oral capsule), 100 mg= 1 cap, PO, bid omeprazole(omeprazole 40 mg oral delayed release capsule), See Instructions, 5 refills onabotulinumtoxinA(Botox 100 units injection), See Instructions PARoxetine(PARoxetine 20 mg oral tablet), 20 mg= 1 tab, PO, Daily, 3 refills polyethylene glycol 3350(polyethylene glycol 3350 oral powder for reconstitution), See Instructions potassium chloride(Potassium Chloride (Qrm-Nscc-Ozi M10) 10 mEq oral tablet, extended release), 10 mEq= 1 tab, PO, Daily QUEtiapine(QUEtiapine 200 mg oral tablet), See Instructions QUEtiapine(QUEtiapine 25 mg oral tablet), See Instructions senna(Senokot 8.6 mg oral tablet), 8.6 mg= 1 tab, PO, Daily, PRN, 1 refills tuberculin purified protein derivative(PPD 5 tuberculin units/0.1 mL intradermal solution), 5 TB_Units= 0.1 mL, intradermal, ONCE unlisted medication(wynne), See Instructions, 11 refills unlisted medication(baclofen 20 mg tablet), See Instructions unlisted medication(Thick-It), See Instructions unlisted medication(METOPROLOL TARTRATE 25 MG TABS) unlisted medication(A & D prevent ointment), See Instructions, 6 refills unlisted medication(baclofen 10 mg tablet), See Instructions Allergies Augmentinunknown amoxicillinunknown Social History Smoking Status Never smoked cigarettes Alcohol - Denies Alcohol Use Tobacco - Denies Tobacco Use Family History Blood clots in membranes: PGF. Breast cancer: MGM. Colon cancer..: PGM. Kidney stones: Unknown. TIA: Negative: PGM. Health Status Family Member(s) Immunizations Vaccine Date Status influenza virus vaccine, inactivated 07/23/2023 Given tetanus/diphtheria/pertuss, acel (Tdap) 11/08/2022 Given Comments : Early/Late Reason: Other : Rooming another pt influenza virus vaccine, inactivated 06/16/2022 Recorded SARS-CoV-2 (COVID-19) mRNA-1273 vaccine 08/01/2021 Recorded SARS-CoV-2 (COVID-19) mRNA-1273 vaccine 08/01/2021 Recorded influenza virus vaccine, inactivated 06/09/2021 Given SARS-CoV-2 (COVID-19) mRNA-1273 vaccine 11/09/2020 Recorded SARS-CoV-2 (COVID-19) mRNA-1273 vaccine 10/12/2020 Recorded zoster vaccine, inactivated 08/18/2020 Recorded influenza virus vaccine, inactivated 06/08/2020 Given zoster vaccine, inactivated 12/01/2019 Recorded pneumococcal 23-valent vaccine 11/05/2019 Given zoster vaccine, inactivated 09/15/2019 Recorded pneumococcal 13-valent vaccine 08/21/2019 Given influenza virus vaccine, inactivated 06/12/2019 Given influenza virus vaccine, inactivated 07/15/2018 Given influenza virus vaccine, inactivated 07/09/2017 Given influenza virus vaccine, inactivated 07/10/2016 Given influenza virus vaccine, inactivated 07/13/2015 Given influenza virus vaccine, inactivated 07/08/2014 Given influenza virus vaccine, inactivated 07/06/2013 Given tetanus/diphtheria/pertuss, acel (Tdap) 09/25/2012 Given influenza virus vaccine, inactivated 06/05/2012 Given tetanus toxoids-diphtheria, Td (Adult) 01/08/2006 Recorded pneumococcal 23-valent vaccine 07/23/2002 Recorded pneumococcal 23-valent vaccine 08/26/2001 Recorded hepatitis B adult vaccine 06/17/2001 Recorded hepatitis B adult vaccine 01/15/2001 Recorded hepatitis B adult vaccine 12/13/2000 Recorded tetanus/diphtheria/pertuss, acel (Tdap) 10/16/1995 Recorded Recommendations Health Maintenance Pending(in the next year) Due Adult Influenza Vaccine due03/15/24and every 1year Adult COVID-19 Vaccination due04/09/24Unknown Frequency Adult Social Determinants of Health Screening due04/09/24Unknown Frequency Body Mass Index due04/09/24Unknown Frequency Satisfied(in the past 1 year) Satisfied Adult Influenza Vaccine on07/23/23.Satisfied by [address], [place] Breast Cancer Screening on02/05/24.Satisfied by JOSE Del Cid, [place] Lipid Screening on11/12/23.Satisfied by Contributor_system, [employer] Electronic Signature on File CC: Leighann Palumbo DO [address] [place] [address] Electronically Reviewed/Signed by: PINA Alejo Author Signature Dt/Tm:04/09/2024 03:58 PM Department of Family Medicine [facility] Patient Care team information Care Team Personnel Name: DO Hood Franklin J Position: Physician - Family Med Member Role: Lifetime Relationship Address: [address] [address] [place] Name: DO Palumbo Kristen M Position: Physician - Family Med Member Role: Lifetime Relationship Address: [address] [place] [address] [place] Care Team Related Persons Name: AURY STREETER
--- OUTSIDE RECORDS SUMMARY | 2024-04-16 17:38 | External Medical Summary | Continuity of Care Document ---
Author Name Unknown Organization [facility] [address] Address [address] [place], [place] [id number] Care Team Providers Care Veterinarian Small Animal Name Role Phone Leighann Palumbo Primary Care Physician [phone] [id number] Date(s): 03/31/24 - 03/31/24 [facility] [address] [facility] [address], [facility] 1 [place], [place] [phone] Encounter Diagnosis Unspecified abnormal findings in urine(Final) - Discharge Disposition: Home or Self Care Attending Physician: PINA Stewart Katy Marie Referring Physician: PINA Stewart Katy Marie Allergies, Adverse Reactions, Alerts Substance Criticality Severity Reaction Reaction Severity Status amoxicillin unknown Active Augmentin unknown Active Immunizations Given and Recorded Vaccine Date Status [...] 10/16/95 R ecorded SARS-CoV-2 (COVID-19) mRNA-1273 vaccine 11/16/21 R ecorded SARS-CoV-2 (COVID-19) mRNA-1273 vaccine 08/01/21 [...] to protect the skin, Pharmacy [facility] Start Date: 07/20/22 Status: Ordered Acid Gone 95 mg-358 mg/15 mL oral suspension Start: 04/12/23 11:23:00 AM EDT, See Instructions, Disp# 355 mL, Refills: 11, TAKE 2 TEASPOONSFUL (10ML) BY MOUTH AFTER MEALS AND AT BEDTIME NEEDED FOR BREAKTHROUGH REFLUX (80ML/DAY) REORDER WHENNEEDED-NOT A CYCLE FILL MED, Pharmacy: [facility] Start Date: 04/12/23 Status: Ordered Allergy Relief (Fexofenadine HCl) 180 mg oral tablet Start: 03/25/24 1:39:00 PM EDT, 1 tab, PO, Daily, Disp# 31 tab, Refills: 0, DX: ALLERGIES), Pharmacy: [facility] Start Date: 03/25/24 Status: Ordered Atrovent 42 mcg/inh nasal spray Start: 06/05/23 12:48:00 PM EDT, 2 spray, each nostril, tid, Disp# 1 each, Refills: 0, Note to Pharmacy: use 3x/day x 2 weeks, PRN: as needed for post- nasal mucous/rhonchi, Pharmacy: [facility] Start Date: 06/05/23 Stop Date: 06/19/23 Status: Ordered baclofen 10 mg oral tablet Start: 08/21/23 9:41:00 AM EST, See Instructions, Disp# 42 tab, Refills: 5, TAKE 1/2 TABLET (5MG) BYMOUTH THREE TIMES DAILY FOR BACK SPASMS *TAKE ALONG WITH 20MG TO EQUAL 25MG*, Pharmacy: [facility] Start Date: 08/21/23 Status: Ordered baclofen 10 mg tablet Start: 03/04/24 2:29:00 PM EDT, baclofen 10 mg tablet, See Instructions, Disp# 47 tab, Refills: 1, TAKE ONE-HALF TABLET (5MG) BY MOUTH THREE TIMES DAILY *TAKE ALONG WITH 20MG TAB = 25MG DOSE (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), Pharmacy [facility] Start Date: 03/04/24 Status: Ordered baclofen 20 mg oral tablet Start: 09/04/23 1:39:00 PM EST, See Instructions, Disp# 84 tab, Refills: 5, TAKE ONE TABLET BY MOUTH THREE TIMES DAILY FOR MUSCLE SPASMS, Pharmacy: [facility] Start Date: 09/04/23 Status: Ordered baclofen 20 mg tablet Start: 02/24/24 9:08:00 AM EDT, baclofen 20 mg tablet, See Instructions, Disp# 93 tab, Refills: 5, TAKE 1 TABLET BY MOUTH THREE TIMES DAILY *TAKE ALONG WITH 5MG TO = 25MG DOSE (DX: 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 DX: SUPPLEMENT), Pharmacy: [facility] Start Date: 02/21/24 Status: Ordered Debrox Earwax Removal Kit 6.5% otic solution Start: 07/19/22 12:34:00 PM EDT, See Instructions, Disp# 30 mL, Refills: 1, 5 to 10 drop both ears weekly, Pharmacy: [facility] Start Date: 07/19/22 Status: Ordered divalproex sodium 125 mg oral delayed release capsule See Instructions, 4 capsules twice daily Start Date: 10/17/22 Status: Ordered docusate calcium 240 mg oral capsule Start: 03/25/24 1:40:00 PM EDT, 1 cap, PO, bid, Disp# 62 each, Refills: 0, EVENING AND BEDTIME) (DX:CONSTIPATION), Pharmacy: [facility] Start Date: 03/25/24 Status: Ordered doxycycline hyclate 100 mg oral capsule Start: 05/17/23 11:12:00 AM EDT, 1 cap, PO, bid, Disp# 20 cap, Pharmacy: [facility] Start Date: 05/17/23 Stop Date: 05/27/23 Status: Ordered estradiol 0.1 mg/g vaginal cream Start: 07/19/22 12:34:00 PM EDT, See Instructions, Disp# 42.5 g, Refills: 5, APPLY 1/4" CREAM ON 2X2, GENTLY SWIPE OVER URETHRA 2 TIMES WEEKLY (SAT/) AT BEDTIME, Pharmacy: [facility] Start Date: 07/19/22 Status: Ordered famotidine 20 mg oral tablet Start: 03/25/24 1:39:00 PM EDT, 1 tab, PO, qhs, Disp# 31 tab, Refills: 0, DX:GERD), Pharmacy: [facility] Start Date: 03/25/24 Status: Ordered ferrous sulfate 325 mg (65 mg elemental iron) oral tablet TAKE 1 TABLET BY MOUTH EVERY OTHER DAY Start Date: 10/17/22 Status: Ordered Fleet Glycerin Suppositories Adult rectal suppository Start: 05/24/23 4:20:00 PM EDT, 1 supp, [place], Daily, Disp# 30 supp, Refills: 11, as needed, Pharmacy: [facility] Start Date: 05/24/23 Status: Ordered fluticasone 50 mcg/inh nasal spray Start: 12/12/23 11:53:00 AM EDT, See Instructions, Disp# 16 g, Refills: 11, INSTILL 2 SPRAYS INTO EACH NOSTRIL ONCE DAILY FOR FOR ALLERGIES, Pharmacy: [facility] Start Date: 12/12/23 Status: Ordered hydrocortisone 1% topical cream Start: 06/02/21 4:26:00 PM EDT, 1 appl, topical, bid, Disp# 45 g, Pharmacy: [facility] Start Date: 06/02/21 Stop Date: 06/16/21 Status: Ordered hydrOXYzine hydrochloride 25 mg oral tablet Start: 03/25/24 1:40:00 PM EDT, See Instructions, Disp# 62 tab, Refills: 0, TAKE ONE-HALF TABLETBY MOUTH TWICE A DAY (DX: ANXIETY) and TAKE (1) TABLET BY MOUTH AT BEDTIME (DX: ANXIETY), Pharmacy:[facility] Start Date: 03/25/24 Status: Ordered ketoconazole 2% topical cream Start: 01/14/24 5:19:00 PM EDT, See Instructions, Disp# 60 g, Refills: 0, APPLY TOPICALY EVERY MORNING TO RED RASH ON TEMPLES, EYEBROWS, BACK OF EARS AND UNDER BREAST FOR RASH, Pharmacy: [facility] Start Date: 01/14/24 Status: Ordered levothyroxine 50 mcg (0.05 mg) oral tablet Start: 03/25/24 1:40:00 PM EDT, 1 tab, PO, Daily, Disp# 31 tab, Refills: 0, DX HYPOTHYROIDISM., Pharmacy: [facility] Start Date: 03/25/24 Status: Ordered lisinopril 10 mg oral tablet Start: 05/29/23 10:30:00 AM EDT, 1 tab, PO, Daily Start Date: 05/29/23 Status: Ordered Macrobid 100 mg oral capsule Start: 01/20/24 2:39:00 PM EDT, 1 cap, PO, bid, Disp# 14 cap, Refills: 0, Pharmacy: [facility] Start Date: 01/20/24 Stop Date: 01/27/24 Status: Ordered metroNIDAZOLE 0.75% topical cream Start: 07/24/23 3:19:00 PM EST, See Instructions, Disp# 45 g, Refills: 5, APPLY TOPICALLY TO FACE TWICE DAILY FOR RASH, Pharmacy: [facility] Start Date: 07/24/23 Status: Ordered mirtazapine 7.5 mg oral tablet Start: 11/17/20 1:48:00 PM EST, 1 tab, PO, qhs Start Date: 11/17/20 Status: Ordered omeprazole 40 mg oral delayed release capsule Start: 02/27/24 11:10:00 AM EDT, See Instructions, Disp# 56 cap, Refills: 5, TAKE 1 CAPSULE BY MOUTHTWICE DAILY AT 8AM AND 8PM FOR GERD, Pharmacy: [facility] Start Date: 02/27/24 Status: Ordered PARoxetine 20 mg oral tablet Start: 08/16/22 4:15:00 PM EST, 1 tab, PO, Daily, Disp# 90 tab, Refills: 3, Pharmacy: [facility] Start Date: 08/16/22 Status: Ordered wynne Start: 01/30/24 3:54:00 PM EDT, ricci, eRx Product Type: Supply, See Instructions, Disp# 30 tab, Refills: 11, Take 3 captlets by mouth at bedtime, if needed for constipation. no bowel movement in 2days., Pharmacy [facility] Start Date: 01/30/24 Status: Ordered polyethylene glycol 3350 oral powder for reconstitution Start: 03/03/24 4:44:00 PM EDT, See Instructions, Disp# 510 g, Refills: 0, MIX 17 GRAMS ( ONE CAPFUL) IN 8 OUNCES OF LIQUID AND DRINK BY MOUTH ONCE DAILY FOR CONSTIPATION, Pharmacy: [facility] Start Date: 03/03/24 Status: Ordered Potassium Chloride (Ruz-Wqzb-Pdz M10) 10 mEq oral tablet, extended release Start: 05/30/23 11:35:00 AM EDT, 1 tab, PO, Daily, Disp# 30 tab, Refills: 0, Pharmacy: [facility] Start Date: 05/30/23 Stop Date: 06/29/23 Status: Ordered QUEtiapine 200 mg oral tablet Start: 06/20/23 3:25:00 PM EDT, See Instructions, Disp# 30 tab, Refills: 0, 200mg at 8m, Pharmacy: [facility] Start Date: 06/20/23 Status: Ordered QUEtiapine 25 mg oral tablet Start: 06/20/23 3:25:00 PM EDT, See Instructions, Disp# 30 tab, Refills: 0, 25mg 8am, 200 mg at 8 pm, Pharmacy: [facility] Start Date: 06/20/23 Status: Ordered Senokot 8.6 mg oral tablet Start: 06/20/23 3:25:00 PM EDT, 1 tab, PO, Daily, Disp# 30 tab, Refills: 1, as needed with plenty ofwater, PRN: as needed for constipation, Pharmacy: [facility] Start Date: 06/20/23 Status: Ordered Tab-A-Donovan oral tablet Start: 03/25/24 1:39:00 PM EDT, 1 tab, PO, Daily, Disp# 31 tab, Refills: 0, DX: SUPPLEMENT), Pharmacy: [facility] Start Date: 03/25/24 Status: Ordered Problem List Condition Confirmation Course Effective Dates [...] Active Well adult exam Confirmed Active 1Knees Procedures Procedure Date Related Diagnosis Body Site [...] Knee Surgery 1999 Completed Bilateral Adductor Tenotomy 1971 Completed Club Feet 1970 Completed Appendectomy Completed [...] were taken. Sent for Heliobacter pylori testing. [place] colored mucosa suspicious for Zhao's esophagus biopsied. [...] hypopharygeal motility, no aspiration. 17Casts put on Results Laboratory List Name Date Urine Analysis w/ Reflexed Microscopic. (URINE W/REFLEX MICR) 03/31/24 Most recent to oldest [Reference Range]: 1 Bili (u) [NEG] NEGATIVE *Unknown* (03/31/24 2:59 PM) Ketones [NEG mg/dL] NEGATIVE mg/dL (03/31/24 2:59 PM) Leuk Est [NEG] NEGATIVE 1 *Unknown* (03/31/24 2:59 PM) Nitrite (u) [NEG] NEGATIVE *Unknown* (03/31/24 2:59 PM) Appear (u) CLEAR *Unknown* (03/31/24 2:59 PM) Color (u) YELLOW *Unknown* (03/31/24 2:59 PM) Glu (u) [NEG mg/dL] NEGATIVE mg/dL (03/31/24 2:59 PM) Hgb (u) [NEG] NEGATIVE *Unknown* (03/31/24 2:59 PM) pH (u) [4.5-8.0 unit] 6.5 unit (03/31/24 2:59 PM) Prot (u) [NEG mg/dL] NEGATIVE mg/dL (03/31/24 2:59 PM) Urobili [0.1-1.0 EU/dL] 0.2 EU/dL (03/31/24 2:59 PM) SG [1.005-1.030] 1.015 (03/31/24 2:59 PM) 1Result Comment: Testing Performed By: Dept of Pathology [facility] [address], [address], [place] [address] Orders for Microbiology Reports Name Date Urine Culture (CULTURE, URINE) 03/31/24 Microbiology Reports TEST:Urine.Cx STATUS:Auth (Verified) BODY SITE: SOURCE:Urine COLLECTED DATE/TIME:03/31/24 2:59 PM Status FINAL 04/02/2024 Social History Social History Type Response Smoking Status Never smoked cigaret galilea Sex Female Patient Care team information Care Team Personnel Name: DO Hood Franklin J Position: Physician - Family Med Member Role: Lifetime Relationship Address: Address: [address] [place] [address] Name: DO Palumbo Kristen M Position: Physician - Family Med Member Role: Lifetime Relationship Address: Address: [address] [place] [address] [place] Care Team Related Persons Name: AURY STREETER Address: home No Address Provided
--- OUTSIDE RECORDS SUMMARY | 2024-04-16 17:38 | External Medical Summary | Continuity of Care Document ---
Author Name Unknown Organization [address] Address [address] [place] [address] [address] [place]AL [place], [place] [id number] Care Team Providers Care Furniture And Bedding Inspector Name Role Phone Leighann Palumbo Primary Care Physician [phone] [id number] Date(s): 04/02/24 - 04/02/[address] [facility] [address], [address] [place] [address] [phone] Encounter Diagnosis Cerebral palsy(Discharge Diagnosis) - 04/02/24 Foul smelling urine(Discharge Diagnosis) - 04/02/24 Tachycardia(Discharge Diagnosis) - 04/02/24 Dysphagia(Discharge Diagnosis) - 04/03/24 Discharge Disposition: Home or Self Care Attending Physician: PINA Stewart Katy Marie Referring Physician: DO Palumbo Kristen M Allergies, Adverse Reactions, Alerts Substance Criticality Severity Reaction Reaction Severity Status amoxicillin unknown Active Augmentin unknown Active Assessment and Plan Extracted from: Title:Office Visit Note Author:PINA Stewart Kat y Marie Date:04/02/24 1.Cerebral palsy Problem isChronic - clinically stable though not at goal Goal:maintenance Data:_ Plan:continue current regimen 2.Foul smelling urine Problem isAcute Goal:resolution Data:_ Plan:UA and cx negative. Dehydration? 3.Tachycardia Problem isAcute Goal:resolution Data:_ Plan:suspect that she is dehydrated, concern for pneumonia or other infectious etiology. Referred to the ER. Patient caregiververbalizes understanding and agrees with landen well [...] to protect the skin, [facility]acy [facility] Start Date: 07/20/22 Status: Ordered Acid Gone 95 mg-358 mg/15 mL oral suspension Start: 04/12/23 11:23:00 AM EDT, See Instructions, Disp# 355 mL, Refills: 11, TAKE 2 TEASPOONSFUL (10ML) BY MOUTH AFTER MEALS AND AT BEDTIME NEEDED FOR BREAKTHROUGH REFLUX (80ML/DAY) REORDER WHENNEEDED-NOT A CYCLE FILL MED, Pharmacy: [facility] Start Date: 04/12/23 Status: Ordered Allergy Relief (Fexofenadine HCl) 180 mg oral tablet Start: 03/25/24 1:39:00 PM EDT, 1 tab, PO, Daily, Disp# 31 tab, Refills: 0, DX: ALLERGIES), Pharmacy: [facility] Start Date: 03/25/24 Status: Ordered Atrovent 42 mcg/inh nasal spray Start: 06/05/23 12:48:00 PM EDT, 2 spray, each nostril, tid, Disp# 1 each, Refills: 0, Note to Pharmacy: use 3x/day x 2 weeks, PRN: as needed for post- nasal mucous/rhonchi, Pharmacy: [facility] Start Date: 06/05/23 Stop Date: 06/19/23 Status: Ordered baclofen 10 mg oral tablet Start: 08/21/23 9:41:00 AM EST, See Instructions, Disp# 42 tab, Refills: 5, TAKE 1/2 TABLET (5MG) BYMOUTH THREE TIMES DAILY FOR BACK SPASMS *TAKE ALONG WITH 20MG TO EQUAL 25MG*, Pharmacy: [facility] Start Date: 08/21/23 Status: Ordered baclofen 10 mg tablet Start: 03/04/24 2:29:00 PM EDT, baclofen 10 mg tablet, See Instructions, Disp# 47 tab, Refills: 1, TAKE ONE-HALF TABLET (5MG) BY MOUTH THREE TIMES DAILY *TAKE ALONG WITH 20MG TAB = 25MG DOSE (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), Pharmacy [facility] Start Date: 03/04/24 Status: Ordered baclofen 20 mg oral tablet Start: 09/04/23 1:39:00 PM EST, See Instructions, Disp# 84 tab, Refills: 5, TAKE ONE TABLET BY MOUTH THREE TIMES DAILY FOR MUSCLE SPASMS, Pharmacy: [facility] Start Date: 09/04/23 Status: Ordered baclofen 20 mg tablet Start: 02/24/24 9:08:00 AM EDT, baclofen 20 mg tablet, See Instructions, Disp# 93 tab, Refills: 5, TAKE 1 TABLET BY MOUTH THREE TIMES DAILY *TAKE ALONG WITH 5MG TO = 25MG DOSE (DX: 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), Pharmacy [facility] Start Date: 02/24/24 Status: Ordered Botox 100 units injection Start: 06/25/23 3:46:00 PM EDT, See Instructions, Disp# 2 each, Refills: 11, USE DIRECTED FOR BILATERAL UPPER EXTREMITY INTRAMUSCULARLY INJECTIONS FOR DYSTONIA SECONDARY TO CEREBRAL PALSEY REORDER WHEN NEEDED-NOT A CYCLE FILL MED *[facility] [phone]*, Pharmacy: [facility] Start Date: 06/25/23 Status: Ordered Culturelle for Kids oral tablet, chewable Start: 02/21/24 1:36:00 PM EDT, 1 tab, PO, Daily, Disp# 30 tab, Refills: 0, CHEW. DX: SUPPLEMENT), Pharmacy: [facility] Start Date: 02/21/24 Status: Ordered Debrox Earwax Removal Kit 6.5% otic solution Start: 07/19/22 12:34:00 PM EDT, See Instructions, Disp# 30 mL, Refills: 1, 5 to 10 drop both ears weekly, Pharmacy: [facility] Start Date: 07/19/22 Status: Ordered divalproex sodium 125 mg oral delayed release capsule See Instructions, 4 capsules twice daily Start Date: 10/17/22 Status: Ordered docusate calcium 240 mg oral capsule Start: 03/25/24 1:40:00 PM EDT, 1 cap, PO, bid, Disp# 62 each, Refills: 0, EVENING AND BEDTIME) (DX:CONSTIPATION), Pharmacy: [facility] Start Date: 03/25/24 Status: Ordered doxycycline hyclate 100 mg oral capsule Start: 05/17/23 11:12:00 AM EDT, 1 cap, PO, bid, Disp# 20 cap, Pharmacy: [facility] Start Date: 05/17/23 Stop Date: 05/27/23 Status: Ordered estradiol 0.1 mg/g vaginal cream Start: 07/19/22 12:34:00 PM EDT, See Instructions, Disp# 42.5 g, Refills: 5, APPLY 1/4" CREAM ON 2X2, GENTLY SWIPE OVER URETHRA 2 TIMES WEEKLY (SAT/) AT BEDTIME, Pharmacy: [facility] Start Date: 07/19/22 Status: Ordered famotidine 20 mg oral tablet Start: 03/25/24 1:39:00 PM EDT, 1 tab, PO, qhs, Disp# 31 tab, Refills: 0, DX:GERD), Pharmacy: [facility] Start Date: 03/25/24 Status: Ordered ferrous sulfate 325 mg (65 mg elemental iron) oral tablet TAKE 1 TABLET BY MOUTH EVERY OTHER DAY Start Date: 10/17/22 Status: Ordered Fleet Glycerin Suppositories Adult rectal suppository Start: 05/24/23 4:20:00 PM EDT, 1 supp, OR, Daily, Disp# 30 supp, Refills: 11, as needed, Pharmacy: [facility] Start Date: 05/24/23 Status: Ordered fluticasone 50 mcg/inh nasal spray Start: 12/12/23 11:53:00 AM EDT, See Instructions, Disp# 16 g, Refills: 11, INSTILL 2 SPRAYS INTO EACH NOSTRIL ONCE DAILY FOR FOR ALLERGIES, Pharmacy: [facility] Start Date: 12/12/23 Status: Ordered hydrocortisone 1% topical cream Start: 06/02/21 4:26:00 PM EDT, 1 appl, topical, bid, Disp# 45 g, Pharmacy: [facility] Start Date: 06/02/21 Stop Date: 06/16/21 Status: Ordered hydrOXYzine hydrochloride 25 mg oral tablet Start: 03/25/24 1:40:00 PM EDT, See Instructions, Disp# 62 tab, Refills: 0, TAKE ONE-HALF TABLETBY MOUTH TWICE A DAY (DX: ANXIETY) and TAKE (1) TABLET BY MOUTH AT BEDTIME (DX: ANXIETY), Pharmacy:[facility] Start Date: 03/25/24 Status: Ordered ketoconazole 2% topical cream Start: 01/14/24 5:19:00 PM EDT, See Instructions, Disp# 60 g, Refills: 0, APPLY TOPICALY EVERY MORNING TO RED RASH ON TEMPLES, EYEBROWS, BACK OF EARS AND UNDER BREAST FOR RASH, Pharmacy: [facility] Start Date: 01/14/24 Status: Ordered levothyroxine 50 mcg (0.05 mg) oral tablet Start: 03/25/24 1:40:00 PM EDT, 1 tab, PO, Daily, Disp# 31 tab, Refills: 0, DX HYPOTHYROIDISM., Pharmacy: [facility] Start Date: 03/25/24 Status: Ordered lisinopril 10 mg oral tablet Start: 05/29/23 10:30:00 AM EDT, 1 tab, PO, Daily Start Date: 05/29/23 Status: Ordered Macrobid 100 mg oral capsule Start: 01/20/24 2:39:00 PM EDT, 1 cap, PO, bid, Disp# 14 cap, Refills: 0, Pharmacy: [facility] Start Date: 01/20/24 Stop Date: 01/27/24 Status: Ordered metroNIDAZOLE 0.75% topical cream Start: 07/24/23 3:19:00 PM EST, See Instructions, Disp# 45 g, Refills: 5, APPLY TOPICALLY TO FACE TWICE DAILY FOR RASH, Pharmacy: [facility] Start Date: 07/24/23 Status: Ordered mirtazapine 7.5 mg oral tablet Start: 11/17/20 1:48:00 PM EST, 1 tab, PO, qhs Start Date: 11/17/20 Status: Ordered omeprazole 40 mg oral delayed release capsule Start: 02/27/24 11:10:00 AM EDT, See Instructions, Disp# 56 cap, Refills: 5, TAKE 1 CAPSULE BY MOUTHTWICE DAILY AT 8AM AND 8PM FOR GERD, Pharmacy: [facility] Start Date: 02/27/24 Status: Ordered PARoxetine 20 mg oral tablet Start: 08/16/22 4:15:00 PM EST, 1 tab, PO, Daily, Disp# 90 tab, Refills: 3, Pharmacy: [facility] Start Date: 08/16/22 Status: Ordered wynne Start: 01/30/24 3:54:00 PM EDT, wynne, eRx Product Type: Supply, See Instructions, Disp# 30 tab, Refills: 11, Take 3 captlets by mouth at bedtime, if needed for constipation. no bowel movement in 2days., Pharmacy [facility] Start Date: 01/30/24 Status: Ordered polyethylene glycol 3350 oral powder for reconstitution Start: 03/03/24 4:44:00 PM EDT, See Instructions, Disp# 510 g, Refills: 0, MIX 17 GRAMS ( ONE CAPFUL) IN 8 OUNCES OF LIQUID AND DRINK BY MOUTH ONCE DAILY FOR CONSTIPATION, Pharmacy: [facility] Start Date: 03/03/24 Status: Ordered Potassium Chloride (Owu-Nxmi-Dei M10) 10 mEq oral tablet, extended release Start: 05/30/23 11:35:00 AM EDT, 1 tab, PO, Daily, Disp# 30 tab, Refills: 0, Pharmacy: [facility] Start Date: 05/30/23 Stop Date: 06/29/23 Status: Ordered QUEtiapine 200 mg oral tablet Start: 06/20/23 3:25:00 PM EDT, See Instructions, Disp# 30 tab, Refills: 0, 200mg at 8m, Pharmacy: [facility] Start Date: 06/20/23 Status: Ordered QUEtiapine 25 mg oral tablet Start: 06/20/23 3:25:00 PM EDT, See Instructions, Disp# 30 tab, Refills: 0, 25mg 8am, 200 mg at 8 pm, Pharmacy: [facility] Start Date: 06/20/23 Status: Ordered Senokot 8.6 mg oral tablet Start: 06/20/23 3:25:00 PM EDT, 1 tab, PO, Daily, Disp# 30 tab, Refills: 1, as needed with plenty ofwater, PRN: as needed for constipation, Pharmacy: [facility] Start Date: 06/20/23 Status: Ordered Tab-A-Donovan oral tablet Start: 03/25/24 1:39:00 PM EDT, 1 tab, PO, Daily, Disp# 31 tab, Refills: 0, DX: SUPPLEMENT), Pharmacy: [facility] Start Date: 03/25/24 Status: Ordered Thick-It Start: 04/03/24 2:19:00 PM EDT, Thick-It, eRx Product Type: Supply, See Instructions, Disp# 2 each, Refills: 0, Please add 5 teaspoons of powder to 8oz of water or fluid, 4 times a day (With meals andevening). Please offer patient up to 4 additional daily doses if desired by patient., [facility] Start Date: 04/03/24 Status: Ordered Mental Status 04/02/24 Barriers to Learning one year Cognitive deficit Problem List Condition Confirmation Course Effective Dates [...] Effective Dates Health Status Clinical Service Informant Cerebral palsy Discharge Diagnosis 04/02/24 Non-Specified Foul smelling urine Discharge Diagnosis 04/02/24 Non-Specified Tachycardia Discharge Diagnosis 04/02/24 Non-Specified Dysphagia Discharge Diagnosis 04/03/24 Non-Specified Procedures Procedure Date Related Diagnosis Body [...] were taken. Sent for Heliobacter pylori testing. Nuevo colored mucosa suspicious for Zhao's esophagus biopsied. [...] Most recent to oldest [Reference Range]: 1 Heart Rate 110 bpm (04/02/24 9:28 AM) Blood Pressure 132/72mmHg (04/02/24 9:28 AM) Cuff Pulse Pressure 60 mmHg (04/02/24 9:28 AM) Social History Social History Type Response Smoking Status Never smoked cigaret galilea Sex Female [facility] Outpt Note * PINA Stewart Katy Marie: PERFORM Event Display: [facility] Outpt Note Authored Date: Chief Complaint Saturday BP 140-80 pulse 108. Urine is strong and has an odor History of Present Illness hypertensive and tachycardic Thought to have possible UTI thought UA and urine cxnegative. No fevers She has been more drowsy. eating normally and drinking normally having back pain Has had a BM within the last 2 days. Review of Systems A total of 10 systems were reviewed. Pertinent positive and negatives addressed in HPI, all other findings are negative. Physical Exam Vitals & Measurements HR:110(Monitored) BP:132/72 Constitutional: drowsy though arousable, No acute distress, flat mood and affect Respiratory: Lung sounds are diminished Right worse than Left, equal chest rise and fall with breathing, no pursed lip breathing Cardiovascular: Heart sounds regular rate and rhythm, without gallop or murmur, no edema HEENT: Normocephalic, atraumatic, conjunctiva are clear, sclera non-icteric Gastrointestinal: abdomen is soft and RUQistender to palpation, normoactive BS, no organomegaly/masses/hernia Skin: Warm, pale, dry, intact exam is complicated by limited mobility and wheelchair Assessment/Plan 1.Cerebral palsy Problem isChronic - clinically stable though not at goal Goal:maintenance Data:_ Plan:continue current regimen 2.Foul smelling urine Problem isAcute Goal:resolution Data:_ Plan:UA and cx negative. Dehydration? 3.Tachycardia Problem isAcute Goal:resolution Data:_ Plan:suspect that she is dehydrated, concern for pneumonia or other infectious etiology. Referred to the ER. Patient caregiververbalizes understanding and agrees with landen well asreturn precautions. Attestation I attest that I have spent35 minutes in care and coordination of this patient. 5_min previsit: chart review and preparation 28_min [id number]: obtaining HPI, PE, discussing Assessment and Plan, and other pertinent discussions/decisionsr/t care 2_min postvisit: coordination of care, orders, and documentation/paperwork [...] X-ray| Service Date: 11/16/2019Chest x-ray| Service Date: 09/03/2019FL video swallow| Service Date: 07/16/2019Chest X-ray| Service [...] estradiol topical(estradiol 0.1 mg/g vaginal cream), See Instructions, 5 refills famotidine(famotidine 20 mg oral tablet), 1 tab, PO, qhs ferrous sulfate(ferrous sulfate 325 mg (65 mg elemental iron) oral tablet) fexofenadine(Allergy Relief (Fexofenadine HCl) 180 mg oral tablet), 1 tab, PO, Daily fluticasone nasal(fluticasone 50 mcg/inh nasal spray), See Instructions, 11 refills glycerin(Fleet Glycerin Suppositories Adult rectal suppository), 1 supp, OR, Daily, 11 refills hydrocortisone topical(hydrocortisone 1% topical [...] for reconstitution), See Instructions potassium chloride(Potassium Chloride (Khq-Erma-Fnd M10) 10 mEq oral tablet, extended release), [...] medication(baclofen 20 mg tablet), See Instructions unlisted medication(A & D prevent ointment), See [...] Vaccine due03/15/24and every 1year Adult COVID-19 Vaccination due04/02/24Unknown Frequency Adult Social Determinants of Health Screening due04/02/24Unknown Frequency Body Mass Index due04/02/24Unknown Frequency Satisfied(in the past 1 year) Satisfied Adult Influenza Vaccine on07/23/23.Satisfied by [address], [place] Breast Cancer Screening on02/05/24.Satisfied by [facility] Lipid Screening on11/12/23.Satisfied by [employer]system, [employer] Electronic Signature on File CC: Leighann Palumbo DO [address] [place] [address] Electronically Reviewed/Signed by: PINA Alejo Author Signature Dt/Tm:04/02/2024 10:10 AM Department of Family Medicine [facility] Patient Care team information Care Team Personnel Name: DO Hood Franklin J Position: Physician - Family Med Member Role: Lifetime Relationship Address: Address: [facility] [address] [address] [place] Name: DO Palumbo Kristen M Position: Physician - Family Med Member Role: Lifetime Relationship Address: Address: [address] [place] [address] [place] Care Team Related Persons Name: AURY STREETER Address: home No Address Provided
--- OUTSIDE RECORDS SUMMARY | 2024-04-16 17:38 | External Medical Summary | Continuity of Care Document ---
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) - Unspecified abnormal findings in urine(Final) - Tachycardia, unspecified(Final) - Discharge Disposition: Home or Self Care [...] to protect the skin, [facility]acy [facility] [place] Start Date: 07/20/22 Status: Ordered Acid Gone 95 mg-358 mg/15 mL oral suspension Start: 04/12/23 11:23:00 AM EDT, See Instructions, Disp# 355 mL, Refills: 11, TAKE 2 TEASPOONSFUL (10ML) BY MOUTH AFTER MEALS AND AT BEDTIME NEEDED FOR BREAKTHROUGH REFLUX (80ML/DAY) REORDER WHENNEEDED-NOT A CYCLE FILL MED, Pharmacy: [facility] Start Date: 04/12/23 Status: Ordered Allergy Relief (Fexofenadine HCl) 180 mg oral tablet Start: 03/25/24 1:39:00 PM EDT, 1 tab, PO, Daily, Disp# 31 tab, Refills: 0, DX: ALLERGIES), Pharmacy: [facility] Start Date: 03/25/24 Status: Ordered Atrovent 42 mcg/inh nasal spray Start: 06/05/23 12:48:00 PM EDT, 2 spray, each nostril, tid, Disp# 1 each, Refills: 0, Note to Pharmacy: use 3x/day x 2 weeks, PRN: as needed for post- nasal mucous/rhonchi, Pharmacy: [facility] [place] Start Date: 06/05/23 Stop Date: 06/19/23 Status: Ordered baclofen 10 mg oral tablet Start: 08/21/23 9:41:00 AM EST, See Instructions, Disp# 42 tab, Refills: 5, TAKE 1/2 TABLET (5MG) BYMOUTH THREE TIMES DAILY FOR BACK SPASMS *TAKE ALONG WITH 20MG TO EQUAL 25MG*, Pharmacy: [facility] Start Date: 08/21/23 Status: Ordered baclofen 10 mg tablet Start: 03/04/24 2:29:00 PM EDT, baclofen 10 mg tablet, See Instructions, Disp# 47 tab, Refills: 1, TAKE ONE-HALF TABLET (5MG) BY MOUTH THREE TIMES DAILY *TAKE ALONG WITH 20MG TAB = 25MG DOSE (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), Pharmacy [facility] Start Date: 03/04/24 Status: Ordered baclofen 20 mg oral tablet Start: 09/04/23 1:39:00 PM EST, See Instructions, Disp# 84 tab, Refills: 5, TAKE ONE TABLET BY MOUTH THREE TIMES DAILY FOR MUSCLE SPASMS, Pharmacy: [facility] [place] Start Date: 09/04/23 Status: Ordered baclofen 20 mg tablet Start: 02/24/24 9:08:00 AM EDT, baclofen 20 mg tablet, See Instructions, Disp# 93 tab, Refills: 5, TAKE 1 TABLET BY MOUTH THREE TIMES DAILY *TAKE ALONG WITH 5MG TO = 25MG DOSE (DX: 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), Pharmacy [facility] Start Date: 02/24/24 Status: Ordered Botox 100 units injection Start: 06/25/23 3:46:00 PM EDT, See Instructions, Disp# 2 each, Refills: 11, USE DIRECTED FOR BILATERAL UPPER EXTREMITY INTRAMUSCULARLY INJECTIONS FOR DYSTONIA SECONDARY TO CEREBRAL PALSEY REORDER WHEN NEEDED-NOT A CYCLE FILL MED *[facility] [phone]*, Pharmacy: [facility] Start Date: 06/25/23 Status: Ordered Culturelle for Kids oral tablet, chewable Start: 04/07/24 2:51:00 PM EDT, 1 tab, PO, Daily, Disp# 30 tab, Refills: 0, CHEW. DX: SUPPLEMENT), Pharmacy: [facility] Start Date: 04/07/24 Status: Ordered Debrox Earwax Removal Kit 6.5% otic solution Start: 07/19/22 12:34:00 PM EDT, See Instructions, Disp# 30 mL, Refills: 1, 5 to 10 drop both ears weekly, Pharmacy: [facility] [place] Start Date: 07/19/22 Status: Ordered divalproex sodium 125 mg oral delayed release capsule See Instructions, 5 capsules twice daily Start Date: 10/17/22 Status: Ordered docusate calcium 240 mg oral capsule Start: 03/25/24 1:40:00 PM EDT, 1 cap, PO, bid, Disp# 62 each, Refills: 0, EVENING AND BEDTIME) (DX:CONSTIPATION), Pharmacy: [facility] Start Date: 03/25/24 Status: Ordered doxycycline hyclate 100 mg oral capsule Start: 05/17/23 11:12:00 AM EDT, 1 cap, PO, bid, Disp# 20 cap, Pharmacy: [facility] [place] Start Date: 05/17/23 Stop Date: 05/27/23 Status: Ordered estradiol 0.1 mg/g vaginal cream Start: 04/08/24 2:11:00 PM EDT, See Instructions, Disp# 42.5 g, Refills: 0, APPLY 1/4" CREAM TOPICALLY ON 2X2, GENTLY SWIPE OVER URETHRA 2 TIMES WEEKLY ON SATURDAY AND SATURDAY AT BEDTIME (DX MENOPAUSE), Pharmacy: [facility] Start Date: 04/08/24 Status: Ordered famotidine 20 mg oral tablet Start: 03/25/24 1:39:00 PM EDT, 1 tab, PO, qhs, Disp# 31 tab, Refills: 0, DX:GERD), Pharmacy: [facility] Start Date: 03/25/24 Status: Ordered ferrous sulfate 325 mg (65 mg elemental iron) oral tablet TAKE 1 TABLET BY MOUTH EVERY OTHER DAY Start Date: 10/17/22 Status: Ordered Fleet Glycerin Suppositories Adult rectal suppository Start: 05/24/23 4:20:00 PM EDT, 1 supp, SC, Daily, Disp# 30 supp, Refills: 11, as needed, Pharmacy: [facility] Start Date: 05/24/23 Status: Ordered fluticasone 50 mcg/inh nasal spray Start: 12/12/23 11:53:00 AM EDT, See Instructions, Disp# 16 g, Refills: 11, INSTILL 2 SPRAYS INTO EACH NOSTRIL ONCE DAILY FOR FOR ALLERGIES, Pharmacy: [facility] [place] Start Date: 12/12/23 Status: Ordered hydrocortisone 1% topical cream Start: 06/02/21 4:26:00 PM EDT, 1 appl, topical, bid, Disp# 45 g, Pharmacy: [facility] Start Date: 06/02/21 Stop Date: 06/16/21 Status: Ordered hydrOXYzine hydrochloride 25 mg oral tablet Start: 03/25/24 1:40:00 PM EDT, See Instructions, Disp# 62 tab, Refills: 0, TAKE ONE-HALF TABLETBY MOUTH TWICE A DAY (DX: ANXIETY) and TAKE (1) TABLET BY MOUTH AT BEDTIME (DX: ANXIETY), Pharmacy:[facility] Start Date: 03/25/24 Status: Ordered ketoconazole 2% topical cream Start: 01/14/24 5:19:00 PM EDT, See Instructions, Disp# 60 g, Refills: 0, APPLY TOPICALY EVERY MORNING TO RED RASH ON TEMPLES, EYEBROWS, BACK OF EARS AND UNDER BREAST FOR RASH, Pharmacy: [facility] Start Date: 01/14/24 Status: Ordered levothyroxine 50 mcg (0.05 mg) oral tablet Start: 03/25/24 1:40:00 PM EDT, 1 tab, PO, Daily, Disp# 31 tab, Refills: 0, DX HYPOTHYROIDISM., Pharmacy: [facility] Start Date: 03/25/24 Status: Ordered lisinopril 10 mg oral tablet Start: 05/29/23 10:30:00 AM EDT, 1 tab, PO, Daily Start Date: 05/29/23 Status: Ordered Macrobid 100 mg oral capsule Start: 01/20/24 2:39:00 PM EDT, 1 cap, PO, bid, Disp# 14 cap, Refills: 0, Pharmacy: [facility] Start Date: 01/20/24 Stop Date: 01/27/24 Status: Ordered METOPROLOL TARTRATE 25 MG TABS Start: 04/09/24 2:15:00 PM EDT, METOPROLOL TARTRATE 25 MG TABS Start Date: 04/09/24 Status: Ordered metroNIDAZOLE 0.75% topical cream Start: 07/24/23 3:19:00 PM EST, See Instructions, Disp# 45 g, Refills: 5, APPLY TOPICALLY TO FACE TWICE DAILY FOR RASH, Pharmacy: [facility] Start Date: 07/24/23 Status: Ordered mirtazapine 7.5 mg oral tablet Start: 11/17/20 1:48:00 PM EST, 1 tab, PO, qhs Start Date: 11/17/20 Status: Ordered omeprazole 40 mg oral delayed release capsule Start: 02/27/24 11:10:00 AM EDT, See Instructions, Disp# 56 cap, Refills: 5, TAKE 1 CAPSULE BY MOUTHTWICE DAILY AT 8AM AND 8PM FOR GERD, Pharmacy: [facility] Start Date: 02/27/24 Status: Ordered PARoxetine 20 mg oral tablet Start: 08/16/22 4:15:00 PM EST, 1 tab, PO, Daily, Disp# 90 tab, Refills: 3, [facility] [facility] Start Date: 08/16/22 Status: Ordered wynne Start: 01/30/24 3:54:00 PM EDT, Tommy wynne Product Type: Supply, See Instructions, Disp# 30 tab, Refills: 11, Take 3 captlets by mouth at bedtime, if needed for constipation. no bowel movement in 2days., Pharmacy [facility] Start Date: 01/30/24 Status: Ordered polyethylene glycol 3350 oral powder for reconstitution Start: 03/03/24 4:44:00 PM EDT, See Instructions, Disp# 510 g, Refills: 0, MIX 17 GRAMS ( ONE CAPFUL) IN 8 OUNCES OF LIQUID AND DRINK BY MOUTH ONCE DAILY FOR CONSTIPATION, Pharmacy: [facility] Start Date: 03/03/24 Status: Ordered Potassium Chloride (Fgn-Qygg-Gfn M10) 10 mEq oral tablet, extended release Start: 05/30/23 11:35:00 AM EDT, 1 tab, PO, Daily, Disp# 30 tab, Refills: 0, Pharmacy: [facility] Start Date: 05/30/23 Stop Date: 06/29/23 Status: Ordered QUEtiapine 200 mg oral tablet Start: 06/20/23 3:25:00 PM EDT, See Instructions, Disp# 30 tab, Refills: 0, 200mg at 8m, Pharmacy: [facility] [place] Start Date: 06/20/23 Status: Ordered QUEtiapine 25 mg oral tablet Start: 06/20/23 3:25:00 PM EDT, See Instructions, Disp# 30 tab, Refills: 0, 25mg 8am, 200 mg at 8 pm, Pharmacy: [facility] [place] Start Date: 06/20/23 Status: Ordered Senokot 8.6 mg oral tablet Start: 06/20/23 3:25:00 PM EDT, 1 tab, PO, Daily, Disp# 30 tab, Refills: 1, as needed with plenty ofwater, PRN: as needed for constipation, Pharmacy: [facility] [place] Start Date: 06/20/23 Status: Ordered Tab-A-Donovan oral tablet Start: 03/25/24 1:39:00 PM EDT, 1 tab, PO, Daily, Disp# 31 tab, Refills: 0, DX: SUPPLEMENT), Pharmacy: [facility] Start Date: 03/25/24 Status: Ordered Thick-It Start: 04/03/24 2:19:00 PM EDT, Thick-It, eRx Product Type: Supply, See Instructions, Disp# 2 each, Refills: 0, Please add 5 teaspoons of powder to 8oz of water or fluid, 4 times a day (With meals andevening). Please offer patient up to 4 additional daily doses if desired by patient., Pharmacy [facility] Start Date: 04/03/24 Status: Ordered Problem List Condition Confirmation Course [...] Bilateral Adductor Tenotomy 1970 Completed Club Feet 17 1970 Completed Appendectomy Completed Cholecystectomy Completed Hernia [...] were taken. Sent for Heliobacter pylori testing. [place] colored mucosa suspicious for Zhao's esophagus biopsied. [...] put on Results Laboratory List Name Date Complete Blood Count w Differential (CBC ,DIFFH) 04/08/24 Comprehensive Metabolic Panel (COMP META B PANEL) 04/08/24 Most recent to oldest [Reference Range]: 1 eGFR CKD-EPI [>60 mL/min/1.73 m2] >90 mL /min/1.73 m2 1 (04/08/24 3:14 PM) Platelet Morphology NORMAL *Unknown* (04/08/24 3:14 PM) MPV [9.0-12.2 fL] 12.6 fL *HI* (04/08/24 3:14 PM) Immature Gran% 0.0 % (04/08/24 3:14 PM) Neut% 22.2 % (04/08/24 3:14 PM) Lymph% 68.5 % (04/08/24 3:14 PM) Jerome% 3.7 % (04/08/24 3:14 PM) Baso% 1.9 % (04/08/24 3:14 PM) Eos% 3.7 % (04/08/24 3:14 PM) Immat Gran, Abs [0.0-0.4 K/uL] 0.00 K/uL (04/08/24 3:14 PM) Neut, Abs [2.0-7.7 K/uL] 2.16 K/uL (04/08/24 3:14 PM) Lymph, Abs [1.0-3.4 K/uL] 6.68 K/uL *HI* (04/08/24 3:14 PM) Jerome, Abs [0-1.0 K/uL] 0.36 K/uL (04/08/24 3:14 PM) Baso, Abs [0-0.1 K/uL] 0.19 K/uL *HI* (04/08/24 3:14 PM) Eos, Abs [0-0.5 K/uL] 0.36 K/uL (04/08/24 3:14 PM) Type of Diff: MANUAL *Unknown* (04/08/24 3:14 PM) RBC Morphology NORMAL *Unknown* (04/08/24 3:14 PM) RDW [11.5-14.2 %] 14.0 % (04/08/24 3:14 PM) Anion Gap [5-14 mmol/L] 8 mmol/L (04/08/24 3:14 PM) Alb [3.5-5.0 g/dL] 3.6 g/dL (04/08/24 3:14 PM) Alk Phos [38-126 unit/L] 87 unit/L (04/08/24 3:14 PM) ALT [<35 unit/L] 13 unit/L (04/08/24 3:14 PM) AST [15-46 unit/L] 21 unit/L (04/08/24 3:14 PM) BUN [7-20 mg/dL] 18 mg/dL (04/08/24 3:14 PM) Ca [8.4-10.2 mg/dL] 9.5 mg/dL (04/08/24 3:14 PM) Cl- [96-107 mmol/L] 104 mmol/L (04/08/24 3:14 PM) HCO3 [22-30 mmol/L] 27 mmol/L (04/08/24 3:14 PM) Cret [0.60-1.00 mg/dL] 0.31 mg/dL *LOW* (04/08/24 3:14 PM) Glu [74-106 mg/dL] 129 mg/dL *HI* (04/08/24 3:14 PM) Hct [35-44 %] 40.3 % (04/08/24 3:14 PM) Hgb [11.7-15.0 g/dL] 12.9 g/dL (04/08/24 3:14 PM) K [3.5-5.1 mmol/L] 5.0 mmol/L (04/08/24 3:14 PM) MCH [28-33 pg] 31.7 pg (04/08/24 3:14 PM) MCHC [32-36 g/dL] 32.0 g/dL (04/08/24 3:14 PM) MCV [81-96 fL] 99.0 fL *HI* (04/08/24 3:14 PM) Na [137-145 mmol/L] 139 mmol/L (04/08/24 3:14 PM) Plts [150-350 K/uL] 219 K/uL (04/08/24 3:14 PM) RBC [3.90-5.00 M/uL] 4.07 M/uL (04/08/24 3:14 PM) Smudge Cell [FEW] MODERATE *Abnormal* (04/08/24 3:14 PM) T Bili [0.2-1.3 mg/dL] 0.3 mg/dL (04/08/24 3:14 PM) Prot [6.3-8.2 g/dL] 6.7 g/dL (04/08/24 3:14 PM) WBC [4.0-10.4 K/uL] 9.75 K/uL (04/08/24 3:14 PM) 1Result Comment: Testing Performed By: Dept of Pathology [facility] [address], [address], [place] [address] Social History Social History Type Response Smoking Status Never smoked cigaret galilea Sex Female Sex Representation Female (finding) Patient Care team information Care Team Personnel Name: DO Hood Franklin J Position: Physician - Family Med Member Role: Lifetime Relationship Address: [address] [place] [address] Name: DO Palumbo Kristen M Position: Physician - Family Med Member Role: Lifetime Relationship Address: [address] [place] [address] Care Team Related Persons Name: AURY STREETER
--- OUTSIDE RECORDS SUMMARY | 2024-04-16 17:39 | External Medical Summary | Continuity of Care Document ---
Author Name Unknown Organization [facility] [address] Address [address] [place], [place] [id number] Care Team Providers Care Wood Pile Driver Operator Name Role Phone Leighann Palumbo Primary Care Physician [phone] [id number] Date[facility]s): 03/25/24 - 03/25/24 [facility] [address], [facility] [address] [place], [place] [phone] Encounter Diagnosis Deficiency of other specified B group vitamins(Final) - Discharge Disposition: Home or Self Care Attending Physician: DO Palumbo Kristen M Referring Physician: DO Palumbo Kristen M Allergies, [...] to protect the skin, [facility]acy [facility] Start Date: 07/20/22 Status: Ordered Acid Gone 95 mg-358 mg/15 mL oral suspension Start: 04/12/23 11:23:00 AM EDT, See Instructions, Disp# 355 mL, Refills: 11, TAKE 2 TEASPOONSFUL (10ML) BY MOUTH AFTER MEALS AND AT BEDTIME NEEDED FOR BREAKTHROUGH REFLUX (80ML/DAY) REORDER WHENNEEDED-NOT A CYCLE FILL MED, Pharmacy: [facility] Start Date: 04/12/23 Status: Ordered Allergy Relief [...] for post- nasal mucous/rhonchi, Pharmacy: [facility] [place] Start Date: 06/05/23 Stop Date: 06/19/23 Status: Ordered baclofen 10 mg oral tablet Start: 08/21/23 9:41:00 AM EST, See Instructions, Disp# 42 tab, Refills: 5, TAKE 1/2 TABLET (5MG) BYMOUTH THREE TIMES DAILY FOR BACK SPASMS *TAKE ALONG WITH 20MG TO EQUAL 25MG*, Pharmacy[facility] [place] Start Date: 08/21/23 Status: Ordered baclofen 10 [...] DAILY FOR MUSCLE SPASMS, [facility]acy[facility] Start Date: 09/04/23 Status: Ordered baclofen 20 [...] REORDER WHEN NEEDED-NOT A CYCLE FILL MED *[facility] [id number]*, Pharmacy[facility] Start Date: 06/25/23 Status: Ordered Culturelle for Kids oral tablet, chewable Start: 02/21/24 1:36:00 PM EDT, 1 tab, PO, Daily, Disp# 30 tab, Refills: 0, CHEW. DX: SUPPLEMENT), Pharmacy: [facility] Start Date: 02/21/24 Status: Ordered Debrox Earwax Removal Kit 6.5% otic solution Start: 07/19/22 12:34:00 PM EDT, See Instructions, Disp# 30 mL, Refills: 1, 5 to 10 drop both ears weekly, Pharmacy[facility] [place] Start Date: 07/19/22 Status: Ordered divalproex sodium [...] bid, Disp# 20 cap, Pharmacy[facility] Start Date: 05/17/23 Stop Date: 05/27/23 Status: Ordered estradiol 0.1 mg/g vaginal cream Start: 07/19/22 12:34:00 PM EDT, See Instructions, Disp# 42.5 g, Refills: 5, APPLY 1/4" CREAM ON 2X2, GENTLY SWIPE OVER URETHRA 2 TIMES WEEKLY (SAT/) AT BEDTIME, Pharmacy: [facility] Start Date: 07/19/22 Status: Ordered famotidine 20 [...] Start: 05/24/23 4:20:00 PM EDT, 1 supp, MO, Daily, Disp# 30 supp, Refills: 11, as needed, Pharmacy: [facility] [place] Start Date: 05/24/23 Status: Ordered fluticasone 50 mcg/inh nasal spray Start: 12/12/23 11:53:00 AM EDT, See Instructions, Disp# 16 g, Refills: 11, INSTILL 2 SPRAYS INTO EACH NOSTRIL ONCE DAILY FOR FOR ALLERGIES, Pharmacy: [facility] Start Date: 12/12/23 Status: Ordered hydrocortisone 1% topical cream Start: 06/02/21 4:26:00 PM EDT, 1 appl, topical, bid, Disp# 45 g, Pharmacy: [facility] Start Date: 06/02/21 Stop Date: 06/16/21 Status: [...] Disp# 14 cap, Refills: 0, Pharmacy: [facility] Start Date: 01/20/24 Stop Date: 01/27/24 Status: Ordered metroNIDAZOLE 0.75% topical cream Start: 07/24/23 3:19:00 PM EST, See Instructions, Disp# 45 g, Refills: 5, APPLY TOPICALLY TO FACE TWICE DAILY FOR RASH, [facility]acy[facility] Start Date: 07/24/23 Status: Ordered mirtazapine 7.5 [...] 90 tab, Refills: 3, [facility]acy[facility] Start Date: 08/16/22 Status: Ordered wynne Start: 01/30/24 3:54:00 PM EDT, Earle wynnex Product Type: Supply, See Instructions, Disp# 30 [...] Start Date: 03/03/24 Status: Ordered Potassium Chloride (Brh-Tpoi-Lne M10) 10 mEq oral tablet, extended release Start: 05/30/23 11:35:00 AM EDT, 1 tab, PO, Daily, Disp# 30 tab, Refills: 0, Pharmacy: [facility] Start Date: 05/30/23 Stop Date: 06/29/23 Status: Ordered QUEtiapine 200 mg oral tablet Start: 06/20/23 3:25:00 PM EDT, See Instructions, Disp# 30 tab, Refills: 0, 200mg at 8m, [facility]acy[facility] Start Date: 06/20/23 Status: Ordered QUEtiapine 25 mg oral tablet Start: 06/20/23 3:25:00 PM EDT, See Instructions, Disp# 30 tab, Refills: 0, 25mg 8am, 200 mg at 8 pm, [facility]acy[facility] Start Date: 06/20/23 Status: Ordered Senokot 8.6 mg oral tablet Start: 06/20/23 3:25:00 PM EDT, 1 tab, PO, Daily, Disp# 30 tab, Refills: 1, as needed with plenty ofwater, PRN: as needed for constipation, Pharmacy: [facility] Start Date: 06/20/23 Status: Ordered Tab-A-Donovan oral tablet Start: 03/25/24 1:39:00 PM EDT, 1 tab, PO, Daily, Disp# 31 tab, Refills: 0, DX: SUPPLEMENT), Pharmacy: [facility] Start Date: 03/25/24 Status: Ordered Problem List [...] were taken. Sent for Heliobacter pylori testing. [place] colored mucosa suspicious for Zhao's esophagus biopsied. [...] put on Results Laboratory List Name Date Vitamin B12 Level (VITAMIN B12) 03/25/24 Most recent to oldest [Reference Range]: 1 B12 [211-946 pg/mL] 1380 pg/mL *HI* (03/25/24 3:23 PM) Social History Social History Type Response Smoking Status Never smoked cigaret galilea Sex Female Patient Care team information Care Team Personnel Name: DO Hood Franklin J Position: Physician - Family Med Member Role: Lifetime Relationship Address: Address: [address] [place] [address] [place] Name: DO Palumbo Kristen M Position: Physician - Family Med Member Role: Lifetime Relationship Address: Address: [address] [place] [address] [place] Care Team Related Persons Name: AURY STREETER Address: home No Address Provided
--- OUTSIDE RECORDS SUMMARY | 2024-04-16 17:39 | External Medical Summary | Continuity of Care Document ---
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 Name Role Phone Leighann Palumbo Primary Care Physician [phone] Encounter [facility] [id number] Date(s): 02/19/24 - 02/19/24 [facility] [address] [place] [id number] [facility] [address] [place] [id number] Encounter Diagnosis Spasticity(Discharge Diagnosis) - 02/19/24 Cerebral palsy(Discharge Diagnosis) - 02/19/24 Discharge Disposition: Home or Self Care Attending Physician: MD Joshua, Gabriel Law Allergies, Adverse Reactions, Alerts Substance Criticality Severity [...] acel (Tdap) 10/16/95 R ecorded SARS-CoV-2 (COVID-19) mRNA-1271 vaccine 08/01/21 R ecorded SARS-CoV-2 (COVID-19) mRNA-1273 [...] to protect the skin, [facility]acy [facility] Start Date: 07/20/22 Status: Ordered Acid Gone 95 mg-358 mg/15 mL oral suspension Start: 04/12/23 11:23:00 AM EDT, See Instructions, Disp# 355 mL, Refills: 11, TAKE 2 TEASPOONSFUL (10ML) BY MOUTH AFTER MEALS AND AT BEDTIME NEEDED FOR BREAKTHROUGH REFLUX (80ML/DAY) REORDER WHENNEEDED-NOT A CYCLE FILL MED, Pharmacy: [facility] Start Date: 04/12/23 Status: Ordered Allergy Relief (Fexofenadine HCl) 180 mg oral tablet Start: 02/21/24 1:36:00 PM EDT, 1 tab, PO, Daily, Disp# 31 tab, Refills: 0, DX: ALLERGIES), Pharmacy:[facility] Start Date: 02/21/24 Status: Ordered Atrovent 42 mcg/inh nasal spray Start: 06/05/23 12:48:00 PM EDT, 2 spray, each nostril, tid, Disp# 1 each, Refills: 0, Note to Pharmacy: use 3x/day x 2 weeks, PRN: as needed for post- nasal mucous/rhonchi, Pharmacy: [facility] Start Date: 06/05/23 Stop Date: 06/19/23 Status: Ordered baclofen 10 mg oral tablet Start: 08/21/23 9:41:00 AM EST, See Instructions, Disp# 42 tab, Refills: 5, TAKE 1/2 TABLET (5MG) BYMOUTH THREE TIMES DAILY FOR BACK SPASMS *TAKE ALONG WITH 20MG TO EQUAL 25MG*, Pharmacy: [facility] Start Date: 08/21/23 Status: Ordered baclofen 20 mg oral tablet Start: 09/04/23 1:39:00 PM EST, See Instructions, Disp# 84 tab, Refills: 5, TAKE ONE TABLET BY MOUTH THREE TIMES DAILY FOR MUSCLE SPASMS, Pharmacy: [facility] Start Date: 09/04/23 Status: Ordered Botox 100 units injection Start: 06/25/23 3:46:00 PM EDT, See Instructions, Disp# 2 each, Refills: 11, USE DIRECTED FOR BILATERAL UPPER EXTREMITY INTRAMUSCULARLY INJECTIONS FOR DYSTONIA SECONDARY TO CEREBRAL PALSEY REORDER WHEN NEEDED-NOT A CYCLE FILL MED *[facility] [phone]*, Pharmacy: [facility] Start Date: 06/25/23 Status: Ordered Culturelle for Kids oral tablet, chewable Start: 02/21/24 1:36:00 PM EDT, 1 tab, PO, Daily, Disp# 30 tab, Refills: 0, CHEW. DX: SUPPLEMENT), Pharmacy: [facility] Start Date: 02/21/24 Status: Ordered Daily Donovan oral tablet Start: 02/21/24 1:36:00 PM EDT, 1 tab, PO, Daily, Disp# 31 tab, Refills: 0, DX: SUPPLEMENT), Pharmacy: [facility] Start Date: 02/21/24 Status: Ordered Debrox Earwax Removal Kit 6.5% otic solution Start: 07/19/22 12:34:00 PM EDT, See Instructions, Disp# 30 mL, Refills: 1, 5 to 10 drop both ears weekly, Pharmacy: [facility] Start Date: 07/19/22 Status: Ordered divalproex sodium 125 mg oral delayed release capsule See Instructions, 4 capsules twice daily Start Date: 10/17/22 Status: Ordered docusate calcium 240 mg oral capsule Start: 02/21/24 1:36:00 PM EDT, 1 cap, PO, bid, Disp# 62 each, Refills: 0, EVENING AND BEDTIME) (DX: CONSTIPATION), Pharmacy: [facility] Start Date: 02/21/24 Status: Ordered doxycycline hyclate 100 mg oral capsule Start: 05/17/23 11:12:00 AM EDT, 1 cap, PO, bid, Disp# 20 cap, Pharmacy: [facility] Start Date: 05/17/23 Stop Date: 05/27/23 Status: Ordered estradiol 0.1 mg/g vaginal cream Start: 07/19/22 12:34:00 PM EDT, See Instructions, Disp# 42.5 g, Refills: 5, APPLY 1/4" CREAM ON 2X2, GENTLY SWIPE OVER URETHRA 2 TIMES WEEKLY (SAT/) AT BEDTIME, Pharmacy: [facility] Start Date: 07/19/22 Status: Ordered famotidine 20 mg oral tablet Start: 02/21/24 1:36:00 PM EDT, 1 tab, PO, qhs, Disp# 31 tab, Refills: 0, DX:GERD), Pharmacy: [facility] Start Date: 02/21/24 Status: Ordered ferrous sulfate 325 mg (65 mg elemental iron) oral tablet TAKE 1 TABLET BY MOUTH EVERY OTHER DAY Start Date: 10/17/22 Status: Ordered Fleet Glycerin Suppositories Adult rectal suppository Start: 05/24/23 4:20:00 PM EDT, 1 supp, UT, Daily, Disp# 30 supp, Refills: 11, as needed, Pharmacy: [facility] Start Date: 05/24/23 Status: Ordered fluticasone 50 mcg/inh nasal spray Start: 12/12/23 11:53:00 AM EDT, See Instructions, Disp# 16 g, Refills: 11, INSTILL 2 SPRAYS INTO EACH NOSTRIL ONCE DAILY FOR FOR ALLERGIES, Pharmacy: [facility] Start Date: 12/12/23 Status: Ordered hydrocortisone 1% topical cream Start: 06/02/21 4:26:00 PM EDT, 1 appl, topical, bid, Disp# 45 g, Pharmacy: [facility] Start Date: 06/02/21 Stop Date: 06/16/21 Status: Ordered hydrOXYzine hydrochloride 25 mg oral tablet Start: 01/29/24 2:20:00 PM EDT, See Instructions, Disp# 62 tab, Refills: 0, TAKE ONE-HALF TABLETBY MOUTH TWICE A DAY (DX: ANXIETY) and TAKE (1) TABLET BY MOUTH AT BEDTIME (DX: ANXIETY), Pharmacy:[facility] Start Date: 01/29/24 Status: Ordered hydrOXYzine hydrochloride 25 mg oral tablet Start: 01/20/24 2:08:00 PM EDT, See Instructions, Disp# 62 tab, Refills: 0, TAKE ONE-HALF TABLET BY MOUTH TWICE A DAY (DX: ANXIETY) and TAKE (1) TABLET BY MOUTH AT BEDTIME (DX: ANXIETY), Pharmacy: [facility] Start Date: 01/20/24 Status: Ordered ketoconazole 2% topical cream Start: 01/14/24 5:19:00 PM EDT, See Instructions, Disp# 60 g, Refills: 0, APPLY TOPICALY EVERY MORNING TO RED RASH ON TEMPLES, EYEBROWS, BACK OF EARS AND UNDER BREAST FOR RASH, Pharmacy: [facility] Start Date: 01/14/24 Status: Ordered levothyroxine 50 mcg (0.05 mg) oral tablet Start: 02/21/24 1:36:00 PM EDT, 1 tab, PO, Daily, Disp# 31 tab, Refills: 0, DX HYPOTHYROIDISM., Pharmacy: [facility] Start Date: 02/21/24 Status: Ordered lisinopril 10 mg oral tablet Start: 05/29/23 10:30:00 AM EDT, 1 tab, PO, Daily Start Date: 05/29/23 Status: Ordered Macrobid 100 mg oral capsule Start: 01/20/24 2:39:00 PM EDT, 1 cap, PO, bid, Disp# 14 cap, Refills: 0, Pharmacy: [facility] Start Date: 01/20/24 Stop Date: 01/27/24 Status: Ordered metroNIDAZOLE 0.75% topical cream Start: 07/24/23 3:19:00 PM EST, See Instructions, Disp# 45 g, Refills: 5, APPLY TOPICALLY TO FACE TWICE DAILY FOR RASH, Pharmacy: [email or web address] [place] Start Date: 07/24/23 Status: Ordered mirtazapine 7.5 mg oral tablet Start: 11/17/20 1:48:00 PM EST, 1 tab, PO, qhs Start Date: 11/17/20 Status: Ordered omeprazole 40 mg oral delayed release capsule Start: 08/19/23 8:59:00 AM EST, See Instructions, Disp# 56 cap, Refills: 5, TAKE 1 CAPSULE BY MOUTH TWICE DAILY AT 8AM AND 8PM FOR GERD, Pharmacy: [email or web address] [place] Start Date: 08/19/23 Status: Ordered PARoxetine 20 mg oral tablet Start: 08/16/22 4:15:00 PM EST, 1 tab, PO, Daily, Disp# 90 tab, Refills: 3, Pharmacy: [facility] Start Date: 08/16/22 Status: Ordered wynne Start: 01/30/24 3:54:00 PM EDT, wynne, eRx Product Type: Supply, See Instructions, Disp# 30 tab, Refills: 11, Take 3 captlets by mouth at bedtime, if needed for constipation. no bowel movement in 2days., Pharmacy [facility] Start Date: 01/30/24 Status: Ordered polyethylene glycol 3350 oral powder for reconstitution Start: 08/06/23 2:01:00 PM EST, See Instructions, Disp# 510 g, Refills: 98, MIX 17GM (ONE CAPFUL) IN 8 OUNCES OF LIQUID AND DRINK BY MOUTH ONCE DAILY FOR CONSTIPATION, [facility] Start Date: 08/06/23 Status: Ordered Potassium Chloride (Bmv-Drum-Srk M10) 10 mEq oral tablet, extended release Start: 05/30/23 11:35:00 AM EDT, 1 tab, PO, Daily, Disp# 30 tab, Refills: 0, Pharmacy: [email or web address] [place] Start Date: 05/30/23 Stop Date: 06/29/23 Status: Ordered QUEtiapine 200 mg oral tablet Start: 06/20/23 3:25:00 PM EDT, See Instructions, Disp# 30 tab, Refills: 0, 200mg at 8m, Pharmacy: [facility] Start Date: 06/20/23 Status: Ordered QUEtiapine 25 mg oral tablet Start: 06/20/23 3:25:00 PM EDT, See Instructions, Disp# 30 tab, Refills: 0, 25mg 8am, 200 mg at 8 pm, Pharmacy: [facility] Start Date: 06/20/23 Status: Ordered Senokot 8.6 mg oral tablet Start: 06/20/23 3:25:00 PM EDT, 1 tab, PO, Daily, Disp# 30 tab, Refills: 1, as needed with plenty ofwater, PRN: as needed for constipation, Pharmacy: [facility] Start Date: 06/20/23 Status: Ordered Mental Status 02/19/24 Barriers to Learning one year Cognitive deficit Mandatory Health Literacy Documentation Yes Health Literacy Communication Barriers U nable to assess Primary Language Other: Problem List Condition Confirmation Course Effective Dates [...] Diagnosis Diagnosis Type Effective Dates Health Status Cl inical Service Informant Spasticity Discharge Diagnosis 02/19/24 Cerebral palsy Discharge Diagnosis 02/19/24 Procedures Procedure Date Related Diagnosis Body Site [...] were taken. Sent for Heliobacter pylori testing. Sl[place] colored mucosa suspicious for Zhao's esophagus biopsied. [...] hypopharygeal motility, no aspiration. 17Casts put on Social History Social History Type Response Smoking Status Never smoked cigaret galilea Sex Female Ortho Outpt Note * MD Joshua, Gabriel Law: PERFORM Event Display: Ortho Outpt Note Authored Date: [id number] Name:DEBBIE STREETER Patient Number:[id number] :1965 Date of Service:02/19/2024 CHIEF COMPLAINT: Cerebral palsy, spasticity. HISTORY OF PRESENT ILLNESS: The patient is a 58-year-old female who is accompanied by her caregiver today. She presents for Botox injections. Caregiver reports that last set of injections worked well. MEDICATIONS: Albuterol, Gaviscon, baclofen, valproic acid, Colace, estradiol, famotidine, hydrochlorothiazide, hydroxyzine, ketoconazole, levothyroxine, metronidazole, mirtazapine, multivitamin, Macrobid, omeprazole, Paxil, Senokot. PHYSICAL EXAM: Pleasant female, seated comfortably. She is in a flexor synergy pattern of both upper extremities with tight and adducted thumbs. IMPRESSION: Cerebral palsy with focal dystonia. RECOMMENDATIONS: The patient presented for Botox injections with 2 vials of Botox. These were reconstituted with 100 International Units in each vial using preservative-free sodium chloride. Verbal consent was obtained. Areas were pressure marked, confirmed with nursing personnel and cleansed with alcohol prior to injection. All injections were done with 25-gauge 1-1/2-inch needle after negative aspiration, 40 International Units were injected bilaterally into both biceps, 30 International Units bilaterally into both pronator teres and 20 International Units bilaterally into bothbrachioradialis and the remaining 10 International Units bilaterally into the opponens pollicis. Injections were well tolerated and she will follow up in 3 months' time. Electronic Signature on File Electronically Reviewed/Signed by: Gabriel Lewis MD Author Signature Dt/Tm:02/19/2024 01:22 PM [employer] Patient Care team information Care Team Personnel Name: DO Hood Franklin J Position: Physician - Family Med Member Role: Lifetime Relationship Address: Address: [facility] [address] [place] [address] Name: DO Palumbo Kristen M Position: Physician - Family Med Member Role: Lifetime Relationship Address: Address: [address] [place] [address] [address] [place] [address] [place] Care Team Related Persons Name: AURY STREETER Address: home No Address Provided
--- OUTSIDE RECORDS SUMMARY | 2024-04-16 17:39 | External Medical Summary | Continuity of Care Document ---
Author Name Unknown Organization [facility] [address] [facility] 2 Address [address] [phone] Care Team Providers Care Director Quality Systems Name Role Phone Leighann Palumbo Primary Care Physician [id number] Encounter [place] [id number] Date(s): 03/09/24 - 03/09/24 [facility] [address] [facility] [address] [phone] [place] Encounter Diagnosis Scar(Discharge Diagnosis) - 03/09/24 History of squamous cell carcinoma in situ (SCCIS)(Discharge Diagnosis) - 03/09/24 Discharge Disposition: Home or Self Care Attending Physician: KANE Elias Dawn M Referring Physician: KANE Elias Dawn M Allergies, Adverse Reactions, Alerts Substance Criticality Severity Reaction Reaction Severity Status amoxicillin unknown Active Augmentin unknown Active Assessment and Plan Extracted from: Title:Dermatology Office Visit Note Author:Marvel mahoney PA-C, Dawn M Date:03/09/24 1.Scar chronic and stable - watchful waiting. 2.History of squamous cell carcinoma in situ (SCCIS) Suggested watchful waiting of biopsy site on left kenney. Biopsytook months to heal and no clinical evidence of disease. No ED&C at this time. Will reevaluate at next visit. Call with questions or concerns. Follow up as scheduled 11/2024 or sooner if hard crust, pain, bleeding develop. patient and caregiver in agreement with plan. Immunizations Given and Recorded Vaccine Date Status [...] to protect the skin, [facility]acy [facility] Start Date: 07/20/22 Status: Ordered Acid Gone 95 mg-358 mg/15 mL oral suspension Start: 04/12/23 11:23:00 AM EDT, See Instructions, Disp# 355 mL, Refills: 11, TAKE 2 TEASPOONSFUL (10ML) BY MOUTH AFTER MEALS AND AT BEDTIME NEEDED FOR BREAKTHROUGH REFLUX (80ML/DAY) REORDER WHENNEEDED-NOT A CYCLE FILL MED, Pharmacy: [facility] Start Date: 04/12/23 Status: Ordered Allergy Relief (Fexofenadine HCl) 180 mg oral tablet Start: 02/21/24 1:36:00 PM EDT, 1 tab, PO, Daily, Disp# 31 tab, Refills: 0, DX: ALLERGIES), Pharmacy:[facility] Start Date: 02/21/24 Status: Ordered Atrovent 42 mcg/inh nasal spray Start: 06/05/23 12:48:00 PM EDT, 2 spray, each nostril, tid, Disp# 1 each, Refills: 0, Note to Pharmacy: use 3x/day x 2 weeks, PRN: as needed for post- nasal mucous/rhonchi, [place]acy[place] [facility] Start Date: 06/05/23 Stop Date: 06/19/23 Status: Ordered baclofen 10 mg oral tablet Start: 08/21/23 9:41:00 AM EST, See Instructions, Disp# 42 tab, Refills: 5, TAKE 1/2 TABLET (5MG) BYMOUTH THREE TIMES DAILY FOR BACK SPASMS *TAKE ALONG WITH 20MG TO EQUAL 25MG*, Pharmacy: [facility] Start Date: 08/21/23 Status: Ordered baclofen 10 mg tablet Start: 03/04/24 2:29:00 PM EDT, baclofen 10 mg tablet, See Instructions, Disp# 47 tab, Refills: 1, TAKE ONE-HALF TABLET (5MG) BY MOUTH THREE TIMES DAILY *TAKE ALONG WITH 20MG TAB = 25MG DOSE (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), Pharmacy [facility] Start Date: 03/04/24 Status: Ordered baclofen 20 mg oral tablet Start: 09/04/23 1:39:00 PM EST, See Instructions, Disp# 84 tab, Refills: 5, TAKE ONE TABLET BY MOUTH THREE TIMES DAILY FOR MUSCLE SPASMS, Pharmacy: [facility] Start Date: 09/04/23 Status: Ordered baclofen 20 mg tablet Start: 02/24/24 9:08:00 AM EDT, baclofen 20 mg tablet, See Instructions, Disp# 93 tab, Refills: 5, TAKE 1 TABLET BY MOUTH THREE TIMES DAILY *TAKE ALONG WITH 5MG TO = 25MG DOSE (DX: 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 DX: SUPPLEMENT), Pharmacy: [facility] Start Date: 02/21/24 Status: Ordered Daily Donovan oral tablet Start: 02/21/24 1:36:00 PM EDT, 1 tab, PO, Daily, Disp# 31 tab, Refills: 0, DX: SUPPLEMENT), Pharmacy: [facility] Start Date: 02/21/24 Status: Ordered Debrox Earwax Removal Kit 6.5% otic solution Start: 07/19/22 12:34:00 PM EDT, See Instructions, Disp# 30 mL, Refills: 1, 5 to 10 drop both ears weekly, Pharmacy: [facility] Start Date: 07/19/22 Status: Ordered divalproex sodium 125 mg oral delayed release capsule See Instructions, 4 capsules twice daily Start Date: 10/17/22 Status: Ordered docusate calcium 240 mg oral capsule Start: 02/21/24 1:36:00 PM EDT, 1 cap, PO, bid, Disp# 62 each, Refills: 0, EVENING AND BEDTIME) (DX: CONSTIPATION), Pharmacy: [facility] Start Date: 02/21/24 Status: Ordered doxycycline hyclate 100 mg oral capsule Start: 05/17/23 11:12:00 AM EDT, 1 cap, PO, bid, Disp# 20 cap, Pharmacy: [facility] Start Date: 05/17/23 Stop Date: 05/27/23 Status: Ordered estradiol 0.1 mg/g vaginal cream Start: 07/19/22 12:34:00 PM EDT, See Instructions, Disp# 42.5 g, Refills: 5, APPLY 1/4" CREAM ON 2X2, GENTLY SWIPE OVER URETHRA 2 TIMES WEEKLY (SAT/) AT BEDTIME, Pharmacy: [facility] Start Date: 07/19/22 Status: Ordered famotidine 20 mg oral tablet Start: 02/21/24 1:36:00 PM EDT, 1 tab, PO, qhs, Disp# 31 tab, Refills: 0, DX:GERD), Pharmacy: [facility] Start Date: 02/21/24 Status: Ordered ferrous sulfate 325 mg (65 mg elemental iron) oral tablet TAKE 1 TABLET BY MOUTH EVERY OTHER DAY Start Date: 10/17/22 Status: Ordered Fleet Glycerin Suppositories Adult rectal suppository Start: 05/24/23 4:20:00 PM EDT, 1 supp, ME, Daily, Disp# 30 supp, Refills: 11, as needed, Pharmacy: [facility] Start Date: 05/24/23 Status: Ordered fluticasone 50 mcg/inh nasal spray Start: 12/12/23 11:53:00 AM EDT, See Instructions, Disp# 16 g, Refills: 11, INSTILL 2 SPRAYS INTO EACH NOSTRIL ONCE DAILY FOR FOR ALLERGIES, Pharmacy: [facility] Start Date: 12/12/23 Status: Ordered hydrocortisone 1% topical cream Start: 06/02/21 4:26:00 PM EDT, 1 appl, topical, bid, Disp# 45 g, Pharmacy: [facility] Start Date: 06/02/21 Stop Date: 06/16/21 Status: Ordered hydrOXYzine hydrochloride 25 mg oral tablet Start: 01/29/24 2:20:00 PM EDT, See Instructions, Disp# 62 tab, Refills: 0, TAKE ONE-HALF TABLETBY MOUTH TWICE A DAY (DX: ANXIETY) and TAKE (1) TABLET BY MOUTH AT BEDTIME (DX: ANXIETY), Pharmacy:[facility] Start Date: 01/29/24 Status: Ordered hydrOXYzine hydrochloride 25 mg oral tablet Start: 01/20/24 2:08:00 PM EDT, See Instructions, Disp# 62 tab, Refills: 0, TAKE ONE-HALF TABLET BY MOUTH TWICE A DAY (DX: ANXIETY) and TAKE (1) TABLET BY MOUTH AT BEDTIME (DX: ANXIETY), Pharmacy: [facility] Start Date: 01/20/24 Status: Ordered ketoconazole 2% topical cream Start: 01/14/24 5:19:00 PM EDT, See Instructions, Disp# 60 g, Refills: 0, APPLY TOPICALY EVERY MORNING TO RED RASH ON TEMPLES, EYEBROWS, BACK OF EARS AND UNDER BREAST FOR RASH, Pharmacy: [facility] Start Date: 01/14/24 Status: Ordered levothyroxine 50 mcg (0.05 mg) oral tablet Start: 02/21/24 1:36:00 PM EDT, 1 tab, PO, Daily, Disp# 31 tab, Refills: 0, DX HYPOTHYROIDISM., Pharmacy: [facility] Start Date: 02/21/24 Status: Ordered lisinopril 10 mg oral tablet Start: 05/29/23 10:30:00 AM EDT, 1 tab, PO, Daily Start Date: 05/29/23 Status: Ordered Macrobid 100 mg oral capsule Start: 01/20/24 2:39:00 PM EDT, 1 cap, PO, bid, Disp# 14 cap, Refills: 0, Pharmacy: [facility] Start Date: 01/20/24 Stop Date: 01/27/24 Status: Ordered metroNIDAZOLE 0.75% topical cream Start: 07/24/23 3:19:00 PM EST, See Instructions, Disp# 45 g, Refills: 5, APPLY TOPICALLY TO FACE TWICE DAILY FOR RASH, Pharmacy: [facility] Start Date: 07/24/23 Status: Ordered mirtazapine 7.5 mg oral tablet Start: 11/17/20 1:48:00 PM EST, 1 tab, PO, qhs Start Date: 11/17/20 Status: Ordered omeprazole 40 mg oral delayed release capsule Start: 02/27/24 11:10:00 AM EDT, See Instructions, Disp# 56 cap, Refills: 5, TAKE 1 CAPSULE BY MOUTHTWICE DAILY AT 8AM AND 8PM FOR GERD, Pharmacy: [facility] Start Date: 02/27/24 Status: Ordered PARoxetine 20 mg oral tablet Start: 08/16/22 4:15:00 PM EST, 1 tab, PO, Daily, Disp# 90 tab, Refills: 3, Pharmacy[facility] Start Date: 08/16/22 Status: Ordered wynne Start: 01/30/24 3:54:00 PM EDT, wynne, eRx Product Type: Supply, See Instructions, Disp# 30 tab, Refills: 11, Take 3 captlets by mouth at bedtime, if needed for constipation. no bowel movement in 2days., Pharmacy [facility] Start Date: 01/30/24 Status: Ordered polyethylene glycol 3350 oral powder for reconstitution Start: 03/03/24 4:44:00 PM EDT, See Instructions, Disp# 510 g, Refills: 0, MIX 17 GRAMS ( ONE CAPFUL) IN 8 OUNCES OF LIQUID AND DRINK BY MOUTH ONCE DAILY FOR CONSTIPATION, Pharmacy: [facility] Start Date: 03/03/24 Status: Ordered Potassium Chloride (Nnj-Axql-Xvx M10) 10 mEq oral tablet, extended release Start: 05/30/23 11:35:00 AM EDT, 1 tab, PO, Daily, Disp# 30 tab, Refills: 0, Pharmacy: [facility] Start Date: 05/30/23 Stop Date: 06/29/23 Status: Ordered QUEtiapine 200 mg oral tablet Start: 06/20/23 3:25:00 PM EDT, See Instructions, Disp# 30 tab, Refills: 0, 200mg at 8m, Pharmacy: [facility] Start Date: 06/20/23 Status: Ordered QUEtiapine 25 mg oral tablet Start: 06/20/23 3:25:00 PM EDT, See Instructions, Disp# 30 tab, Refills: 0, 25mg 8am, 200 mg at 8 pm, Pharmacy: [facility] Start Date: 06/20/23 Status: Ordered Senokot 8.6 mg oral tablet Start: 06/20/23 3:25:00 PM EDT, 1 tab, PO, Daily, Disp# 30 tab, Refills: 1, as needed with plenty ofwater, PRN: as needed for constipation, Pharmacy: [facility] Start Date: 06/20/23 Status: Ordered Mental Status 03/09/24 Barriers to Learning one year Cognitive deficit Mandatory Health Literacy Documentation Yes Health Literacy Communication Barriers N ever Primary Language Mauritian Problem List Condition Confirmation Course Effective Dates [...] Dates Health Status Cl inical Service Informant Scar Discharge Diagnosis 03/09/24 History of squamous cell carcinoma in situ (SCCIS) Discharge Diagnosis 03/09/24 Procedures Procedure Date Related Diagnosis Body Site [...] were taken. Sent for Heliobacter pylori testing. [place] colored mucosa suspicious for Zhao's esophagus biopsied. [...] Status Never smoked cigaret galilea Sex Female Dermatology Outpatient Note * KANE Elias, Evangelina M: PERFORM Event Display: Dermatology Outpt Note Authored Date: Chief Complaint recheck spot on left lower leg finally healed after biopsy 12/12/23 showed SCCIS History of Present Illness Beulah is a 58 year old patient accompanied by a caregiver,with a chief complaint ofrecheck spot on left lower leg finally healed after biopsy 12/12/23 showed SCCIS. Caregiver denies itching, bleeding, oozing, crusting or evolving lesions. Patient has past personal history of skin cancer: SCCIS left kenney 12/12/23 - no treatment Family history: Mother with melanoma Patient uses sunscreen. Patient reports no history of blistering sunburns / tanning beds. Has Cerebral Palsy. Nonverbal. Review of Systems Denies fever, chills, sweats, night sweats, weight loss, headache, visual change, stomach upset diarrhea and joint pain. Physical Exam Constitutional: Generally well appearing, well developed. Appears stated age. not ambulatory. Eyes: Conjunctivae and lids without noted inflammation, lesion, mass, deformity or drainage. Neurological / Psychiatric: unable to assess. Integumentary:Exam of the scalp, face, hair, lips, eyelids, neck, both upper extremities, hands, digits, and nails was conducted and was normal except as detailed below: LEFT KENNEY 1.0cm area pink with no scale consistent with scar. no evidence of recurrent skin cancer type I skin Assessment/Plan 1.Scar chronic and stable - watchful waiting. 2.History of squamous cell carcinoma in situ (SCCIS) Suggested watchful waiting of biopsy site on left kenney. Biopsytook months to heal and no clinical evidence of disease. No ED&C at this time. Will reevaluate at next visit. Call with questions or concerns. Follow up as scheduled 11/2024 or sooner if hard crust, pain, bleeding develop. patient and caregiver in agreement with plan. Problem List/Past Medical History Ongoing Actinic keratosis [...] Service Date: 05/09/2022Upper GI (gastrointestinal) endoscopy|Service Date: 2Chest x-ray| Service Date: 06/24/2020Chest X-ray| Service Date: [...] Glycerin Suppositories Adult rectal suppository), 1 supp, ME, Daily, 11 refills hydrocortisone topical(hydrocortisone 1% topical cream), 1 appl, topical, bid hydrOXYzine(hydrOXYzine hydrochloride 25 mg oral tablet), See Instructions hydrOXYzine(hydrOXYzine hydrochloride 25 mg oral tablet), See [...] tablet), 7.5 mg= 1 tab, PO, qhs multivitamin(Daily Donovan oral tablet), 1 tab, PO, Daily nitrofurantoin(Macrobid 100 mg oral capsule), 100 mg= 1 cap, PO, bid omeprazole(omeprazole 40 mg oral delayed release capsule), See Instructions, 5 refills onabotulinumtoxinA(Botox 100 units injection), See Instructions PARoxetine(PARoxetine 20 mg oral tablet), 20 mg= 1 tab, PO, Daily, 3 refills polyethylene glycol 3350(polyethylene glycol 3350 oral powder for reconstitution), See Instructions potassium chloride(Potassium Chloride (Cep-Eekh-Ccc M10) 10 mEq oral tablet, extended release), [...] TIA: Negative: PGM. Health Status Family Member(s) Electronic Signature on File Electronically Reviewed/Signed by: FADY Del Real Author Signature Dt/Tm:03/09/2024 02:52 PM Department of Family Medicine Department of Dermatology D[facility] Patient Care team information Care Team Personnel Name: DO Hood Franklin J Position: Physician - Family Med Member Role: Lifetime Relationship Address: Address: [address] [place] [address] [address] [place] [address] Name: DO Palumbo Kristen M Position: Physician - Family Med Member Role: Lifetime Relationship Address: Address: [address] [place] [address] [address] [place] [address] [place] Care Team Related Persons Name: AURY STREETER Address: home No Address Provided
[2024-04-16] MEDS: hydrOXYzine HCl 10 MG TAB PO ONE (18:04)
[2024-04-16] MEDS: METOPROLOL TARTRATE 25 MG TAB PO STA (18:05)
[2024-04-16] MEDS: QUEtiapine FUMARATE 25 MG TABLET PO ONE (18:05)
[2024-04-16] MEDS: BACLOFEN 10 MG TAB PO ONE (18:05)
[2024-04-16] MEDS ORDERED: LEVALBUTEROL 1.25 MG/3 ML NEB NEB PRN (21:23)
[2024-04-16] MEDS ORDERED: SENNA 8.6 MG TAB PO PRN (21:23)
[2024-04-16] MEDS: LEVALBUTEROL 1.25 MG/3 ML NEB NEB ONE (22:32)
[2024-04-16] MEDS: DIVALPROEX SODIUM SPRINKLE/DEL-REL 125 MG CAP PO SCH (22:45)
[2024-04-16] MEDS: DOCUSATE CALCIUM 240 MG CAPSULE PO SCH (22:45)
[2024-04-16] MEDS: BACLOFEN 10 MG TAB PO SCH (22:46)
[2024-04-16] MEDS: hydrOXYzine HCl 25 MG TAB PO SCH (22:46)
[2024-04-16] MEDS: QUEtiapine FUMARATE 200 MG TAB PO SCH (22:46)
[2024-04-16] MEDS: FAMOTIDINE 20 MG TAB PO SCH (22:46)
[2024-04-16] MEDS: BACLOFEN 20 MG TAB PO SCH (22:46)
[2024-04-16] MEDS: KETOCONAZOLE 2% CR 15 GM TUBE EXT SCH (22:46)
[2024-04-16] MEDS: MIRTAZAPINE TAB 15 MG TAB PO SCH (22:47)
[2024-04-16] MEDS: HEPARIN SOD 5,000 UNIT/0.5 ML VIAL SQ SCH (22:47)
[2024-04-17] MEDS: LACTATED RINGER'S 1,000 ML IV SCH (03:22)
[2024-04-17] MEDS: LEVOTHYROXINE SODIUM 50 MCG TABLET PO SCH (05:39)
[2024-04-17 07:47] LABS: Hematocrit (blood only) 37.4 % (37.0-47.0); Hemoglobin 12.8 g/dl (12.0-16.0); Mean Corpuscular Hemoglobin 31.8 pg (25.0-34.0); Mean Corpuscular Hgb Conc 34.2 g/dL (32.0-36.0); Mean Platelet Volume 10.9 fL (9.4-12.4); Platelet Count 209 K/uL (130-400); RDW Coefficient of Variation 13.8 % (11.5-14.5); RDW Standard Deviation 46.7 fL (36.4-46.3); Red Blood Count 4.02 M/uL (4.20-5.40); White Blood Count 9.94 K/ul (4.8-10.8)
[2024-04-17 08:04] LABS: BUN Creatinine Ratio 25.8 (10-20); Calcium 8.6 mg/dl (8.6-10.3); Creatinine Clr Calc Pharmacy 124.7 ml/min; Est GFR (African American) 142.7 ml/min; Est GFR (Non-African American) 123.1 ml/min; Magnesium 2.3 mg/dl (1.7-2.4)
[2024-04-17 08:11] LABS: Basophils # (auto) 0.04 K/uL (0.00-0.20); Basophils % (auto) 0.4 %; Eosinophils # (auto) 0.16 K/uL (0.00-0.50); Eosinophils % (auto) 1.6 %; Immature Granulocytes # (auto) 0.03 K/uL (0.01-0.20); Immature Granulocytes % (auto) 0.3 %; Lymphocytes % (auto) 60.4 %; Monocytes # (auto) 0.65 K/uL (0.11-0.59); Monocytes % (auto) 6.5 %; Neutrophils # (auto) 3.06 K/uL (1.40-6.50); Neutrophils % (auto) 30.8 %
[2024-04-17] MEDS: hydrOXYzine HCl 25 MG TAB PO SCH (08:14)
[2024-04-17] MEDS: FLUTICASONE PROPIONATE NA SPR 16 GM BTL SCH (08:15)
[2024-04-17] MEDS: POLYETHYLENE (MIRALAX) 17 GM PACK PO SCH (08:15)
[2024-04-17] MEDS: FEXOFENADINE HCL 180 MG TAB PO SCH (08:16)
[2024-04-17] MEDS: PANTOprazole 40 MG TAB PO SCH (08:17)
[2024-04-17] MEDS: PARoxetine HCL 20 MG TAB PO SCH (08:17)
[2024-04-17] MEDS: ACETAMINOPHEN 325 MG TAB PO PRN (08:42)
[2024-04-17] MEDS ORDERED: NON-FORMULARY MEDICATION (Paroxetine Hcl 40 mg tablet) PO SCH (09:00)
[2024-04-17] MEDS ORDERED: METOPROLOL TARTRATE 25 MG TAB PO SCH (09:00)
--- NOTE | 2024-04-17 10:28 | Discharge Summary ---
Date of Service April 17, 2024 Admission HPI Per Admitting Provider Beulah is a 59-year-old female with PMH of cerebral palsy, aspiration pneumonia, dysphagia, GERD, recurrent UTIs, hypothyroidism, and gastroenteritis. She presented on 04/16 at the [facility] for lethargy x 2 days and audible wheezes on exam. Patient lives at [facility], and is wheelchair- bound at baseline. Patient's direct support staff (Nataliya) is at bedside and provides history, as patient is unable to do so. She reports that she was sent in by her PCP for high blood pressure and fast pulse. Her lethargy and expiratory wheeze has been ongoing x 2 days. She does not use supplemental oxygen at baseline. No CPAP at night. No sick contacts. While she has difficulty communicating her needs, she uses the word "back" whenever she is in pain. She also reportedly told the nurses that she wanted to come to the hospital, which was uncommon for her. She does have a history of aspiration pneumonia, but no noted aspiration or vomiting recently according to caretakers. She was recently switched to thickened liquids or drinks. Patient took her regular morning medications today, but not her 4 PM medications; no recent change in medications. Patient is not currently on any blood pressure medications. She saw [facility] provider (Dr. Stewart) on March 03 and was referred to [facility] ER for uncontrolled HTN. She was then placed on the lowest dose metoprolol, but on her return visit on March 08, her BP was very low and she was taken off metoprolol. Shortly after this, she was switched to thickened drinks, as they initially believe that dehydration was contributing. She currently drinks 8 thickened drinks per day to stay hydrated. Patient's direct support staff reports that the patient's wheezing started shortly after she went on to thicken liquids. No smoking, tobacco use, or alcohol use. Patient is hypertensive at 183/113 and tachycardic at 106 bpm at time of admission; SpO2 98% on RA. ED course: NSS 1000 mL IV Unable to obtain ROS from patient. Spoke on the phone with patient's mother (Karie) and provided update regarding admission and labs/imaging. Patient's mother reports that there is no paperwork to the effect of the POA, but she is currently medical proxy. She reports that the patient's CODE STATUS will be full code. Admission Exam Per Admitting Provider General: no acute distress; non-toxic appearing; cooperative; SpO2 98% on RA HEENT: normocephalic, atraumatic; no scleral icterus; PERRLA; left eye deviation inward; unable to assess vision and hearing Neck: supple; no lymphadenopathy; trachea midline Skin: warm, dry without signs of tenting; no cyanosis; no rashes, bruising, lesions, or erythema noted CV: chest wall NTP; RR, tachycardic around 106 bpm; S1/S2 normal; no murmurs/rubs/gallops; pulses intact and symmetric at radial, DP, and PT Lungs: no acute respiratory distress; symmetrical chest wall expansion; expiratory wheezing on exam bilaterally ABD: Soft, NTP; BS present; no rebound/guarding; no distention; negative CVA tenderness MSK: Significant scoliosis; significant muscular atrophy; spine is NTP; no edema noted in the LEs b/l, nonerythematous; contractures in the upper and lower extremities bilaterally; internal rotation of arms, external rotation of feet Neuro: Unable to assess for alertness and orientation; patient does not respond to questioning; no focal deficits appreciated on exam; unable to assess sensation Principal Diagnosis HTN, wheezing Discharge Exam Constitutional WD/WN, vitals as above Respiratory unlabored respirations, no dyspnea appreciated Skin no rashes, warm and dry Discharge Data Allergies Allergy/AdvReac Type Severity Reaction Status Date / Time amoxicillin Allergy Unknown UNKNOWN Verified 01/07/24 20:13 clavulanic acid Allergy Unknown UNKNOWN Verified 01/07/24 20:13 Consultations 04/16/24 16:07 ED Decision to Admit Stat Ordered Studies Chest X-Ray 04/17/24 09:00 XR chest 1V portable CLINICAL HISTORY: Wheezing TECHNIQUE: Single frontal radiograph of the chest was obtained. Comparison: Comparison is made to chest radiograph 04/16/2024 FINDINGS: No lines and tubes are seen. The cardiomediastinal silhouette is normal. The lungs are clear. No evidence of pleural effusion or pneumothorax. IMPRESSION: No acute abnormalities and in particular no radiographic evidence of pneumonia. ACT 112: Negative or not required by law. Electronically signed by: Kenny Funes M.D. 04/17/2024 11:45 AM Abnormal lab results 04/16/24 04/17/24 Range/Units 14:13 07:26 RBC 4.02 L (4.20-5.40) M/uL RDW Std Deviation 46.7 H (36.4-46.3) fL Lymph # (Auto) 6.00 H (1.20-3.40) K/uL Refugio # (Auto) 0.65 H (0.11-0.59) K/uL Chloride 108 H (98-107) mmol/L Creatinine 0.31 L (0.6-1.2) mg/dl BUN/Creatinine Ratio 25.8 H (10-20) Urine pH 8.0 H (4.5-7.5) Hospital Course (1) Uncontrolled hypertension: (2) Wheezing: (3) Tachycardia: (4) Dysphagia: (5) Cerebral palsy: Plan Elevated BP readings: Patient sent in for elevated BP readings x2-3 weeks Game Room Attendant reported recent trial of metoprolol resulted in hypotension, was subsequently discontinued Suspect BP readings may be of limited accuracy due to bilateral UE contractures Trial of metoprolol tartrate 12.5 mg x1 in ED resulted in hypotension (BP 76/55) - hypertension and tachycardia seem to have resolved - overall, potential of inducing hypotension outweighs potential benefit, discharged without addition of antihypertensive medication. Recommend continued monitoring in the outpatient setting. Wheezing: Patient's direct support staff reported expiratory wheezes x2 days, time of onset coincided with being placed on thickened liquids + Hx of aspiration pneumonia No leukocytosis; afebrile CXR on arrival without acute findings, repeat CXR on morning of discharge also negative Non-hypoxic, stable on room air [employer] negative Tachycardia: HR 113 on arrival - of note, review of vitals during previous admissions notable for frequent tachycardia EKG sinus tach without acute changes Troponin negative Total Time Total Time Spent Total Time Spent (In Minutes): see attending attestation Discharge Plan Discharge Items Patient Disposition: Home - Self-Care Reason For Visit: WHEEZING, UNCONTROLLED HTN, CEREBRAL PALSY Discharge Diagnosis: HTN Activity: Resume your previous activity Non-emergency contact: Primary Care Provider Call non-emergency contact if: you have any medication questions, your symptoms worsen and you have a fever Follow-up/Referrals: Leighann Palumbo DO [Primary Care Provider] - Diet: Full liquid Addtl Attending Provider Instructions: You were admitted to the hospital for observation due to elevated blood pressure and new onset wheezing. We treated your hypertension with a small dose of a BP medication called metoprolol - however, this caused your blood pressure to get too low. Our suspicion is that it may be difficult to get an accurate reading with a blood pressure cuff due to upper extremity contractures; therefore, we stopped this medication prior to discharge. Vital signs at time of discharge have normalized. Similarly, despite observation of new wheezing, your oxygen saturation was at a normal level and you had 2 chest x-rays that did not show evidence of pneumonia. Pending Studies at Discharge: No Stand-Alone Forms: My [facility], Smoking Cessation Medications and DC Order Prescriptions: Continued quetiapine 25 mg tablet 12.5 mg PO .DAILY@1600 docusate calcium 240 mg Capsule 240 mg PO DAILY@1599,1999 quetiapine 200 mg tablet 200 mg PO HS fexofenadine [Jayleen Allergy] 180 mg Tablet 180 mg PO QAM omeprazole 40 mg capsule,delayed release(DR/EC) 40 mg PO BID baclofen 20 mg tablet 20 mg PO TID Rx Instructions: at 0800,1599,1999 baclofen 10 mg tablet 5 mg PO TID Rx Instructions: 0800,1600,1999 metronidazole 0.75 % cream 1 applic TOPICAL BID Rx Instructions: Apply to face. Debrox 6.5 % Drops 5 - 10 drp OTIC (EAR) WK Rx Instructions: mondays paroxetine HCl 40 mg tablet 40 mg PO QAM Rx Instructions: TOTAL DOSE 60 MG--TAKES WITH 20 MG TAB. ketoconazole 2 % cream 1 applic TOPICAL BID Rx Instructions: Apply to red rash on temples, eyebrows, back of ears and under breasts as needed. fluticasone propionate 50 mcg/actuation spray,suspension 2 spray INTRANASAL QAM vitamin B comp and C no.3 90-22-09-5-300 mg Capsule 1 cap PO QAM paroxetine HCl 20 mg tablet 20 mg PO QAM Rx Instructions: TOTAL DOSE 60 MG--TAKES WITH 40 MG TAB. sennosides [senna] 8.6 mg Tablet 8.6 mg PO DAILY PRN (Reason: Constipation) albuterol sulfate 2.5 mg /3 mL (0.083 %) Solution For Nebulization 2.5 mg inhalation Q6H PRN (Reason: Wheezing) Botox 100 unit Recon Soln See Rx Instructions .ROUTE .COMPLEX Rx Instructions: DIRECTED FOR BILATERAL UPPER EXTREMITY INJ FOR DYSTONIA SECONDARY TO CHEST PAIN vitamin A and D Ointment See Rx Instructions .ROUTE .COMPLEX PRN (Reason: WITH DIAPER CHANGES) Rx Instructions: APPLY TO BUTTOCKS EVERY TIME ATTENDS ARE CHANGED BARRIER Gaviscon Extra Strength 254-237.5 mg/5 mL Suspension 10 ml PO ACHS PRN (Reason: Acid Reflux) fluoride (sodium) [Denta 5000 Plus] 1.1 % Cream 1 applic DENTAL BID chlorhexidine gluconate 0.12 % mouthwash 1 applic PO 2XWK Rx Instructions: 2x week. swab on teeth and gums after brushing. / [employer] Kids Probiotics 5 billion cell Tablet,Chewable 1 tab PO DAILY estradiol 0.01 % (0.1 mg/gram) cream 1 applic VAGINAL 2XWK Rx Instructions: apply 1/2 " cream on 2x2,gently swipe over urethra 2x weekly saturday and bedtimes mirtazapine 7.5 mg tablet 7.5 mg PO HS hydroxyzine HCl 25 mg Tablet See Rx Instructions .ROUTE .COMPLEX Rx Instructions: TAKES 12.5 MG BID AT 0800 & 1600, THEN TAKES 25 MG AT HS. multivitamin [Daily-Donovan] Tablet 1 tab PO DAILY famotidine 20 mg Tablet 20 mg PO HS levothyroxine 50 mcg tablet 50 mcg PO QAM polyethylene glycol 3350 [Miralax] 17 gram/dose powder 17 g PO QAM glycerin (adult) Suppository 1 supp MN DAILY PRN (Reason: Constipation) acetaminophen [Tylenol Extra Strength] 500 mg Tablet 1,000 mg PO Q6H MDD 6 TABLETS/24 HOURS PRN (Reason: PAIN/FEVER) Sweet Milk of Magnesia 311 mg Tablet,Chewable 933 mg PO HS PRN (Reason: Constipation) divalproex [Depakote Sprinkles] 125 mg capsule, delayed rel sprinkle 625 mg PO BID Rx Instructions: 5 TABLETS---8AM/8PM Discharge Orders: Discharge Order (Routine); Ordered 04/17/24 Ordered By: Artem Lincoln Admission Data Admit Date/Time: 04/16/24 17:51 Attending Provider: Rick Nielsen Admit Provider: Rick Nielsen Primary Care Provider: Leighann Palumbo Other Providers: Rick Nielsen Supervising Physician Co-Signing Physician Notes Patient seen and examined, chart reviewed, case discussed with Dr. Lincoln and I agree with the assessment and plan as above except as otherwise noted Labs and images reviewed Beulah is seen on reevaluation. She is normotensive and with a normal heart rate this morning. No evidence of infection on repeat examination. Discussed BP and heart rate control extensively at bedside. She responded very well to metoprolol tartrate, however did have a overnight episode of hypotension similar but less severe to her prior episodes. Suspect that she has some lability in her BP control, and also that her BP is not always reflective of true underlying pressures as it is difficult to obtain measurements due to her contractures. Also has a risk of hypotension with her baclofen dosing. Discussed her/benefits of ongoing treatment with low-dose metoprolol versus allowing for some permissive hypertension. Will defer additional metoprolol on discharge, and patient will follow-up with PCP. No ongoing tachycardia or hypoxia to suggest PE. Agree with above. Day of discharge spent approximately 35 minutes in care including documentation, review of plan of care with patient and caregiver, and review of labs and images Resident Activity Tracking Resident Involvement: Resident Care Provided Care Provided: Adult Hospital Medicine
--- NOTE | 2024-04-17 11:46 | XRay Report ---
XR chest 1V portable CLINICAL HISTORY: Wheezing TECHNIQUE: Single frontal radiograph of the chest was obtained. Comparison: Comparison is made to chest radiograph 04/16/2024 FINDINGS: No lines and tubes are seen. The cardiomediastinal silhouette is normal. The lungs are clear. No evid ence of pleural effusion or pneumothorax. IMPRESSION: No acute abnormalities and in particular no radiographic evidence of pneumonia. ACT 112: Negative or not required by law. Electronically signed by: Kenny Funes M.D. 04/17/2024 11:45 AM
--- NOTE | 2024-04-17 14:36 | Billing Data ---
Date of Service April 17, 2024 Coding Level of Care Code 52683 SUB INP/OBS CARE
--- NOTE | 2024-04-17 14:37 | Billing Data ---
Date of Service April 17, 2024 Coding Level of Care Code 80560 INP/OBS DISCH >30 MIN
[2024-04-17] MEDS ORDERED: QUEtiapine FUMARATE 25 MG TABLET PO SCH (16:00)
--- NOTE | 2024-04-17 22:53 | Electrocardiogram Report ---
Test Reason : Blood Pressure : / mmHG Vent. Rate : 112 BPM Atrial Rate : 112 BPM P-R Int : 134 ms QRS Dur : 066 ms QT Int : 332 ms P-R-T Axes : 042 020 059 degrees QTc Int : 453 ms Sinus tachycardia Nonspecific T wave abnormality When compared with ECG of 07-JAN-2024 19:44, No significant change Confirmed by Patrice Drake ([id number]) on 04/17/2024 10:52:55 PM Referred By: REFERRED SELF Confirmed By:Patrice Drake
== END 2024-04-17 13:40 | disposition home or self-care (01) ==
LOC: 2N 10:36 → ED 10:36 → 2N 20:58

== ENCOUNTER 2024-06-11 13:19 | Inpatient (IN) ==
--- NOTE | 2024-06-11 14:38 | Emergency Department Note ---
Impression & Plan Dysphasia, Cerebral palsy, Acute sore throat ED Provider Note NAME: DEBBIE STREETER AGE: 59 SEX: F : 1965 ARRIVES VIA: Ambulance INFORMANT: Patient, ED PROVIDER(S): Maurice Overton DO CHIEF COMPLAINT: Sore throat HPI: The patient is a 59-year-old female who presented to the emergency department from [facility] for an evaluation of difficulty swallowing. The patient was seen in our facility recently for different complaints. At that time she was complaining of abdominal pain but also had some left-sided neck pain. The patient was seen by her primary care physician after her recent visit to the emergency department and was doing well. The symptoms appear to be new and started over the last few days. There is no reported vomiting or hemoptysis. She does appear to have a cough according to the caregiver. ROS: See above HPI for pertinent positives & negatives. A total of 10 systems reviewed and were otherwise negative. PAST MEDICAL HISTORY: See Below PAST SURGICAL HISTORY: See Below FAMILY HISTORY: See Below SOCIAL HISTORY: See Below HOME MEDICATIONS: See Below ALLERGIES: See Below VITALS: See Below PHYSICAL EXAMINATION: GENERAL: The patient is awake and alert. The patient's nonanxious appearing. EYES: The conjunctivae are clear. The pupils are round and reactive. EARS, NOSE, MOUTH AND THROAT: The nose is without any evidence of any deformity. NECK: The neck is nontender and supple. RESPIRATORY: Normal respiratory effort is noted there is no evidence of wheezing rhonchi or rales CARDIOVASCULAR: Regular rate and rhythm noted there no murmurs rubs or gallops normal S1 normal S2. GASTROINTESTINAL: The abdomen is soft. Abdomen is nontender. MUSCULOSKELETAL/EXTREMITIES: There is no evidence of gross deformity full range of motion is noted in the hips and shoulders. SKIN: Pedal edema was noted bilaterally. Skin is warm and dry. NEUROLOGIC: Patient is awake alert and follows commands well. MEDICAL DECISION MAKING: The patient is a 59-year-old female who presented to the emergency department for an evaluation of difficulty swallowing. The patient had similar episodes recently. I did see the patient at that time. The patient started having worsening symptoms and is refusing to eat or drink. I discussed the patient's laboratory and radiographic studies with her caregiver as well as the patient. I would wonder if this is mechanical difficulty swallowing given the findings on her CT of her neck that was performed last time she was here. For this reason I discussed her condition with the on-call middleware solutions architect as well as the on- call [facility] hospitalist. They have agreed to evaluate the patient in the emergency department for further management and disposition. Triage Nursing notes reviewed. Prior medical records reviewed Vital Signs: reviewed and remarkable for no significant abnormalities Differential diagnosis: Viral syndrome, tonsillitis, streptococcal pharyngitis, mononucleosis, peritonsillar abscess, retropharyngeal abscess, otitis, pneumonia, influenza, as well as other pathologies. ER treatment provided: See below Diagnostics interpreted by me: ECG: EKG was obtained in the emergency department. My interpretation is sinus tachycardia at 101 bpm. There is no ectopy. There were no acute ST segment abnormalities noted. This was compared to a tracing from April 21, 2024. There is an increase in the rate otherwise no changes were noted. Cardiac Monitoring: An order was placed for continuous cardiac monitoring. The monitor shows a rate of 96 bpm with sinus rhythm. Laboratory studies: As stated above and show below. Imaging studies: See below. Radiographic imaging was reviewed by myself Consultation(s): I discussed this case with Dr. Bronson who is on for gastroenterology. I discussed this case with SAR[facility]. Past Med/Surg History Problem List (Updated 06/11/24 @ 20:05 by Maurice Overton DO) Acute sore throat (Acute) Rhinovirus Neck pain on left side (Acute) Constipation (Acute) Left sided abdominal pain (Acute) Hypertension Uncontrolled hypertension Aspiration into lower respiratory tract Gastroenteritis Acute dehydration (Acute) Hypokalemia (Acute) Hypomagnesemia (Acute) Acute dehydration (Acute) GERD (gastroesophageal reflux disease) Nausea & vomiting History of back problems Encounter for pre-operative examination Cerebral palsy (Chronic) Aspiration pneumonia (Acute) Influenza B (Acute) Dehydration (Acute) High thyroid stimulating hormone (TSH) level Hypothyroidism (acquired) Urinary tract infection (Acute) Febrile illness Fever (Acute) UTI (urinary tract infection) GERD (gastroesophageal reflux disease) Dysphagia Drooling Weight loss Sepsis Dysphasia (Acute) Constipation Cerebral palsy (Chronic) Mental retardation (Chronic) Medical History Cerebral palsy COVID-19 Vomiting and diarrhea History of kidney stones Refuses to eat Dehydration Abdominal pain Intractable vomiting Colitis Surgical History Hx of colonoscopy Surgical history unknown Family History Father Diabetes Other Asthma Cancer Hypertension No family history of adverse response to anesthesia No family history of bleeding disorder Social History Smoking Status: Never smoker Second Hand Exposure: No; Do You Dip or Chew Tobacco: No; Hx Alcohol Use: No Hx Substance Use: No Preferred Language: Tajik Communication Ability: Unable Communication Ability Comment: Able to respond yes/no sometimes Human Resources Services Specialist Required: No Beliefs That Will Affect Care: None Current Living Situation: Personal Care Facility Current Living Situation Comment: [facility] 08/04 caregiver current occupational status: disabled Feels Safe at Home: Yes Diet: regular during the past year weight has: decreased > 10 lbs Assistive Devices: Mechanical Lift and Wheelchair Allergies Allergies Allergy/AdvReac Type Severity Reaction Status Date / Time amoxicillin Allergy Unknown ON MED LIST Verified 04/21/24 17:32 clavulanic acid Allergy Unknown ON MED LIST Verified 04/21/24 17:32 Home Meds Home Medications Medication Instructions Recorded Confirmed baclofen 10 mg tablet 5 mg PO TID 11/14/19 06/11/24 baclofen 20 mg tablet 20 mg PO TID 11/14/19 06/11/24 fexofenadine 180 mg tablet 180 mg PO QA 11/14/19 06/11/24 (Jayleen Allergy) fluticasone propionate 50 2 spray intranasal QA 11/14/19 06/11/24 mcg/actuation nasal spray,suspension ketoconazole 2 % topical cream 1 applic topical BID 11/14/19 06/11/24 metronidazole 0.75 % topical cream 1 applic topical BID 11/14/19 06/11/24 omeprazole 40 mg capsule,delayed 40 mg PO BID 11/14/19 06/11/24 release paroxetine HCl 40 mg tablet 40 mg PO QAM 11/14/19 06/11/24 quetiapine 200 mg tablet 200 mg PO HS 11/14/19 06/11/24 quetiapine 25 mg tablet 12.5 mg PO .DAILY@1600 11/14/19 06/11/24 paroxetine HCl 20 mg tablet 20 mg PO QAM 06/28/20 06/11/24 estradiol 0.01% (0.1 mg/gram) 1 applic vaginal 2XWK 05/12/21 06/11/24 vaginal cream mirtazapine 7.5 mg tablet 7.5 mg PO HS 05/12/21 06/11/24 hydroxyzine HCl 25 mg tablet See Rx Instructions .Route .COMPLEX 05/17/21 06/11/24 polyethylene glycol 3350 17 17 g PO QAM 10/09/22 06/11/24 gram/dose oral powder (Miralax) chlorhexidine gluconate 0.12 % 1 applic PO 2XWK 05/21/23 06/11/24 mouthwash carbamide peroxide 6.5 % ear drops 5 drp otic (ear) WK 06/11/24 06/11/24 (Debrox) divalproex 125 mg tablet,delayed 750 mg PO BID 06/11/24 06/11/24 release levothyroxine 75 mcg tablet 50 mcg PO DAILY 06/11/24 06/11/24 starch (thickening) (Thick-It oral 0 ea PO DAILY 06/11/24 06/11/24 powder) Results & Data (ED) Vital Signs Vital Signs - 24 hr 06/11/24 13:52 06/11/24 13:56 06/11/24 15:09 Temperature 36 C L Temperature Source Axillary Pulse Rate 108 H 105 H 101 H Pulse Rate from SpO2 Sensor 101 H Pulse Rhythm Regular Pulse Strength Normal Respiratory Rate 17 17 Respiratory Effort / Characteristics Non-Labored Spontaneous Respiratory Depth Normal Respiratory Pattern Regular Blood Pressure 126/99 128/92 Blood Pressure Mean 108 104 Pulse Oximetry 95 94 Oxygen Delivery Method Room Air Room Air Sepsis Recent Fever Within 48 Hours No Sepsis New/Unexplained Change in Mental Status N/A Sepsis Action Taken by Nursing No Action Required 06/11/24 15:37 06/11/24 16:00 06/11/24 17:00 Temperature Temperature Source Pulse Rate 95 H 100 H Pulse Rate from SpO2 Sensor 96 H 100 H Pulse Rhythm Pulse Strength Respiratory Rate 14 15 Respiratory Effort / Characteristics Respiratory Depth Respiratory Pattern Blood Pressure 99/70 L 128/79 Blood Pressure Mean 79 95 Pulse Oximetry 95 93 Oxygen Delivery Method Room Air Room Air Room Air Sepsis Recent Fever Within 48 Hours Sepsis New/Unexplained Change in Mental Status Sepsis Action Taken by Nursing 06/11/24 17:50 06/11/24 18:00 Temperature Temperature Source Pulse Rate 97 H 96 H Pulse Rate from SpO2 Sensor 96 H Pulse Rhythm Pulse Strength Respiratory Rate 16 Respiratory Effort / Characteristics Respiratory Depth Respiratory Pattern Blood Pressure 124/88 Blood Pressure Mean 100 Pulse Oximetry 94 Oxygen Delivery Method Room Air Sepsis Recent Fever Within 48 Hours Sepsis New/Unexplained Change in Mental Status Sepsis Action Taken by [facility] Medications Current Medication List: was personally reviewed by me Laboratory Data Attestation: I reviewed the patient's lab results. 06/11/24 14:30 06/11/24 14:25 Lab Results 06/11/24 06/11/24 06/11/24 Range/Units 14:20 14:25 14:30 WBC Cancelled 10.80 RBC Cancelled 3.96 L Hgb Cancelled 12.3 Hct Cancelled 37.3 MCV Cancelled 94.2 MCH Cancelled 31.1 MCHC Cancelled 33.0 RDW Std Deviation Cancelled 50.0 H RDW Coeff of Christopher Cancelled 14.4 Plt Count Cancelled 269 MPV Cancelled 10.1 Immature Gran % (Auto) Cancelled 0.6 Neut % (Auto) Cancelled 65.2 Lymph % (Auto) Cancelled 22.5 [place] % (Auto) Cancelled 11.5 Eos % (Auto) Cancelled 0.0 Baso % (Auto) Cancelled 0.2 Neut # (Auto) Cancelled 7.05 H Lymph # (Auto) Cancelled 2.43 [place] # (Auto) Cancelled 1.24 H Eos # (Auto) Cancelled 0.00 Baso # (Auto) Cancelled 0.02 Immature Gran # (Auto) Cancelled 0.06 Absolute Nucleated RBC Cancelled Nucleated RBC % (auto) Cancelled Neutrophils % (Manual) Cancelled Band Neutrophils % Cancelled Lymphocytes % (Manual) Cancelled Prolymphocyte % Cancelled Reactive Lymphs % (Man) Cancelled Monocytes % (Manual) Cancelled Eosinophils % (Manual) Cancelled Basophils % (Manual) Cancelled Metamyelocytes % (Man) Cancelled Myelocytes % (Man) Cancelled Promyelocytes % (Man) Cancelled Blast Cells % (Manual) Cancelled Plasma Cell % (Manual) Cancelled Other Cells % Cancelled Nucleated RBC % Cancelled Neutrophils # (Manual) Cancelled Band Neutrophils # Cancelled Total Absolute Neuts Cancelled Lymphocytes # (Manual) Cancelled Prolymphocyte # Cancelled Reactive Lymphs # Cancelled Total Abs Lymphocytes Cancelled Monocytes # (Manual) Cancelled Eosinophils # (Manual) Cancelled Basophils # (Manual) Cancelled Metamyelocytes # (Man) Cancelled Myelocytes # (Manual) Cancelled Promyelocytes # (Man) Cancelled Blast Cells # (Man) Cancelled Plasma Cell # (Manual) Cancelled Other Cells # Cancelled Nucleated RBCs # (Man) Cancelled Hypersegmented Neuts Cancelled Hyposegmented Neuts Cancelled Hypogranular Neuts Cancelled Large Granular Lymphs Cancelled # Lrg Granular Lymphs Cancelled Hairy Cells Cancelled Smudge Cells Cancelled Toxic Granulation Cancelled Toxic Vacuolation Cancelled Dohle Bodies Cancelled Jovan Rods Cancelled Platelet Estimate Cancelled Hypogranular Platelets Cancelled Giant Platelets Cancelled Platelet Satelliting Cancelled RBC Morphology Cancelled Polychromasia Cancelled Hypochromasia Cancelled Poikilocytosis Cancelled Basophilic Stippling Cancelled Anisocytosis Cancelled Microcytosis Cancelled Macrocytosis Cancelled Spherocytes Cancelled Pappenheimer Bodies Cancelled Sickle Cells Cancelled Target Cells Cancelled Tear Drop Cells Cancelled Ovalocytes Cancelled Stomatocytes Cancelled [place] Bodies Cancelled Echinocytes Cancelled Acanthocytes (Spur) Cancelled Rouleaux Cancelled RBC Agglutinates Cancelled Schistocytes Cancelled Sezary Cell Cancelled Sodium 136 (136-145) mmol/L Potassium 4.5 (3.5-5.1) mmol/L Chloride 99 (98-107) mmol/L Carbon Dioxide 28 (21-32) mmol/L Anion Gap 9 (3-11) BUN 11 (6-23) mg/dl Creatinine 0.46 L (0.6-1.2) mg/dl Est Cr Clr Drug Dosing Not Reportable Est GFR ( Amer) 125.3 ml/min Est GFR (Non-Af Amer) 108.1 ml/min BUN/Creatinine Ratio 23.9 H (10-20) Glucose 107 H (70-99(Fasting)) mg/dl Calcium 9.2 (8.6-10.3) mg/dl Total Bilirubin 0.2 (0.2-1.0) mg/dl AST 17 (13-39) U/L ALT 10 (7-52) U/L Alkaline Phosphatase 84 (34-104) U/L Troponin I High Sens 5.4 (0-14) pg/ml Total Protein 6.8 (6.0-8.3) gm/dl Albumin 3.7 (3.4-5.0) gm/dl Globulin 3.1 (2.5-4.0) gm/dl Albumin/Globulin Ratio 1.2 (0.9-2) Lipase 10 L (11-82) U/L Valproic Acid 149 H (50-100) mcg/ml Adenovirus (PCR) Not Detected (NotDetected) B. pertussis DNA (PCR) Not Detected (NotDetected) B.parapertussis DNA PCR Not Detected (NotDetected) C. pneumoniae DNA (PCR) Not Detected (NotDetected) Coronavirus OC43 (PCR) Not Detected (NotDetected) Coronavirus HKU1 (PCR) Not Detected (NotDetected) Coronavirus 229E (PCR) Not Detected (NotDetected) SARS-CoV-2 (PCR) Not Detected (NotDetected) Coronavirus NL63 (PCR) Not Detected (NotDetected) Human Metapneumovir PCR Not Detected (NotDetected) Influenza Type A (PCR) Not Detected (NotDetected) Influenza Type B (PCR) Not Detected (NotDetected) M. pneumoniae (PCR) Not Detected (NotDetected) Parainfluenza 1 (PCR) Not Detected (NotDetected) Parainfluenza 2 (PCR) Not Detected (NotDetected) Parainfluenza 3 (PCR) Not Detected (NotDetected) Parainfluenza 4 (PCR) Not Detected (NotDetected) RSV (PCR) Not Detected (NotDetected) Entero/Rhino (PCR) DETECTED A (NotDetected) Group A Strep (PCR) NOT DETECTED (NotDetected) Blood Parasites ID Cancelled Administered Medications Lactated Ringer's (Lr) 1,000 mls @ 80 mls/hr IV .[id number] Stop: 06/13/24 07:44 Last Admin: 06/11/24 19:45 Dose: 80 mls/hr Documented By: [facility] Discontinued Medications Sodium Chloride (Nss) 500 mls @ 999 mls/hr IV .Q31M ONE Stop: 06/11/24 15:12 Last Infusion: 06/11/24 15:51 Dose: Infused Documented By: Admin: 06/11/24 15:20 Dose: 999 mls/hr Documented By: RAIZA Imaging Data Attestation: I personally reviewed and interpreted this imaging study as follows: My Impression: 1 view chest x-ray was obtained in the emergency department. My interpretation is no free air or definite infiltrate, final report below. Radiologist's Impression: Chest X-Ray 06/11/24 14:03 XR chest 1V not portable CLINICAL HISTORY: Chest pain, nonspecific COMPARISON STUDY: Chest CT May 25, 2023. Chest radiograph June 03, 2024. FINDINGS: Thoracic spine levoscoliosis is unchanged. Low lung volumes are unchanged. Chronic right chest wall deformity is again noted. Cardiomediastinal silhouette is stable. There is no evidence for pulmonary edema. No consolidation to suggest pneumonia. IMPRESSION: No acute cardiopulmonary findings. No significant change in appearance of the chest. ACT 112: Negative or not required by law. Electronically signed by: Jignesh Ibrahim M.D. 06/11/2024 3:20 PM Soft Tissue Neck X-Ray 06/11/24 14:03 XR soft tissue neck CLINICAL HISTORY: painful swallowing COMPARISON STUDY: Neck CT June 03, 2024. FINDINGS: Prevertebral soft tissues are unremarkable. The epiglottis is normal. Moderate multilevel degenerative disc disease and facet arthrosis within the cervical spine is incidentally noted. IMPRESSION: 1. Normal epiglottis. 2. Unremarkable prevertebral soft tissues. 3. Moderate multilevel degenerative changes within the cervical spine. ACT 112: Negative or not required by law. Electronically signed by: Jignesh Ibrahim M.D. 06/11/2024 3:19 PM Discharge Plan Visit Data Chief Complaint: Illness Stated Complaint: ILLNESS ED Provider: Maurice Overton Discharge Problem: Dysphasia, Cerebral palsy, Acute sore throat Patient Disposition: Being Evaluated by Hospitalist Forms Stand Alone Forms: My [facility] Prescriptions Prescriptions: No Action quetiapine 25 mg tablet 12.5 mg PO .DAILY@1600 quetiapine 200 mg tablet 200 mg PO HS fexofenadine [Jayleen Allergy] 180 mg Tablet 180 mg PO QAM omeprazole 40 mg capsule,delayed release(DR/EC) 40 mg PO BID baclofen 20 mg tablet 20 mg PO TID Rx Instructions: at 0800,1600,1999 baclofen 10 mg tablet 5 mg PO TID Rx Instructions: 0800,1600,1999 metronidazole 0.75 % cream 1 applic TOPICAL BID Rx Instructions: Apply to face. paroxetine HCl 40 mg tablet 40 mg PO QAM Rx Instructions: TOTAL DOSE 60 MG--TAKES WITH 20 MG TAB. ketoconazole 2 % cream 1 applic TOPICAL BID Rx Instructions: Apply to red rash on temples, eyebrows, back of ears and under breasts as needed. fluticasone propionate 50 mcg/actuation spray,suspension 2 spray INTRANASAL QAM paroxetine HCl 20 mg tablet 20 mg PO QAM Rx Instructions: TOTAL DOSE 60 MG--TAKES WITH 40 MG TAB. chlorhexidine gluconate 0.12 % mouthwash 1 applic PO 2XWK Rx Instructions: 2x week. swab on teeth and gums after brushing. / estradiol 0.01 % (0.1 mg/gram) cream 1 applic VAGINAL 2XWK Rx Instructions: apply 1/2 " cream on 2x2,gently swipe over urethra 2x weekly saturday and bedtimes mirtazapine 7.5 mg tablet 7.5 mg PO HS hydroxyzine HCl 25 mg Tablet See Rx Instructions .ROUTE .COMPLEX Rx Instructions: TAKES 12.5 MG BID AT 0800 & 1600, THEN TAKES 25 MG AT HS. polyethylene glycol 3350 [Miralax] 17 gram/dose powder 17 g PO QAM levothyroxine 75 mcg tablet 50 mcg PO DAILY Rx Instructions: takes 50 mcg Debrox 6.5 % Drops 5 drp OTIC (EAR) WK Rx Instructions: 5-10 drops in each ear per week (saturday) divalproex 125 mg tablet,delayed release (DR/EC) 750 mg PO BID Rx Instructions: 6 tabs at 8 am & 6 tabs at 8pm Thick-It Powder 0 ea PO DAILY Rx Instructions: 5 tsp in 8 oz of fluids QID w/ meals. PT may have 2 additional doses if requested. Referrals Referrals: Leighann Palumbo DO [Primary Care Provider] - Discharge Problem: Cerebral palsy Qualifiers: Cerebral palsy type: unspecified type Qualified Code(s): G80.9 - Cerebral palsy, unspecified
[2024-06-11 15:18] LABS: Alanine Aminotransferase 10 U/L (7-52); Albumin Globulin Ratio 1.2 (0.9-2); Albumin Level 3.7 gm/dl (3.4-5.0); Alkaline Phosphatase 84 U/L (34-104); Anion Gap 9 (3-11); Aspartate Aminotransferase 17 U/L (13-39); BUN Creatinine Ratio 23.9 (10-20); Bilirubin,Total 0.2 mg/dl (0.2-1.0); Blood Urea Nitrogen 11 mg/dl (6-23); Calcium 9.2 mg/dl (8.6-10.3); Carbon Dioxide 28 mmol/L (21-32); Chloride 99 mmol/L (98-107); Est GFR (African American) 125.3 ml/min; Est GFR (Non-African American) 108.1 ml/min; Globulin 3.1 gm/dl (2.5-4.0); Glucose 107 mg/dl (70-99(Fasting)); Lipase 10 U/L (11-82); Potassium 4.5 mmol/L (3.5-5.1); Sodium 136 mmol/L (136-145); Total Protein 6.8 gm/dl (6.0-8.3)
[2024-06-11] MEDS: SODIUM CHLORIDE 0.9% 500 ML IV ONE (15:20)
--- NOTE | 2024-06-11 15:20 | XRay Report ---
XR soft tissue neck CLINICAL HISTORY: painful swallowing COMPARISON STUDY: Neck CT June 03, 2024. FINDINGS: Prevertebral soft tissues are unremarkable. The epiglottis is normal. Moderate multilevel d egenerative disc disease and facet arthrosis within the cervical spine is incidentally noted. IMPRESSION: 1. Normal epiglottis. 2. Unremarkable prevertebral soft tissues. 3. Moderate multilevel degenerative changes within the cervical spine. ACT 112: Negative or not required by law. Electronically signed by: Jignesh Ibrahim M.D. 06/11/2024 3:19 PM
[2024-06-11 15:21] LABS: Troponin I High Sensitivity 5.4 pg/ml (0-14)
--- NOTE | 2024-06-11 15:21 | XRay Report ---
XR chest 1V not portable CLINICAL HISTORY: Chest pain, nonspecific COMPARISON STUDY: Chest CT May 25, 2023. Chest radiograph June 03, 2024. FINDINGS: Thoracic spine levoscoliosis is unchanged. Low lung volumes are unchanged. Chronic right ch est wall deformity is again noted. Cardiomediastinal silhouette is stable. There is no evidence for p ulmonary edema. No consolidation to suggest pneumonia. IMPRESSION: No acute cardiopulmonary findings. No significant change in appearance of the chest. ACT 112: Negative or not required by law. Electronically signed by: Jignesh Ibrahim M.D. 06/11/2024 3:20 PM
[2024-06-11 15:30] LABS: Basophils # (auto) 0.02 K/uL (0.00-0.20); Basophils % (auto) 0.2 %; Hematocrit (blood only) 37.3 % (37.0-47.0); Hemoglobin 12.3 g/dl (12.0-16.0); Immature Granulocytes # (auto) 0.06 K/uL (0.01-0.20); Immature Granulocytes % (auto) 0.6 %; Lymphocytes # (auto) 2.43 K/uL (1.20-3.40); Lymphocytes % (auto) 22.5 %; Mean Corpuscular Hemoglobin 31.1 pg (25.0-34.0); Mean Corpuscular Volume 94.2 fL (80.0-100.0); Mean Platelet Volume 10.1 fL (9.4-12.4); Monocytes # (auto) 1.24 K/uL (0.11-0.59); Monocytes % (auto) 11.5 %; Neutrophils # (auto) 7.05 K/uL (1.40-6.50); Neutrophils % (auto) 65.2 %; Platelet Count 269 K/uL (130-400); RDW Coefficient of Variation 14.4 % (11.5-14.5); Red Blood Count 3.96 M/uL (4.20-5.40)
[2024-06-11 15:46] LABS: Adenovirus PCR Not Detected (NotDetected); Bordetella parapertussis PCR Not Detected (NotDetected); Bordetella pertussis PCR Not Detected (NotDetected); Chlamydia pneumoniae PCR Not Detected (NotDetected); Coronavirus 229E PCR Not Detected (NotDetected); Coronavirus CoV-2 (COVID19)PCR Not Detected (NotDetected); Coronavirus HKU1 PCR Not Detected (NotDetected); Coronavirus NL63 PCR Not Detected (NotDetected); Coronavirus OC43PCR Not Detected (NotDetected); Human Metapneumovirus PCR Not Detected (NotDetected); Influenza A PCR Not Detected (NotDetected); Influenza B PCR Not Detected (NotDetected); Mycoplasma pneumoniae PCR Not Detected (NotDetected); Parainfluenza Virus 1 PCR Not Detected (NotDetected); Parainfluenza Virus 2 PCR Not Detected (NotDetected); Parainfluenza Virus 3 PCR Not Detected (NotDetected); Parainfluenza Virus 4 PCR Not Detected (NotDetected); Respiratory Syncytial VirusPCR Not Detected (NotDetected); Rhinovirus/Enterovirus PCR DETECTED (NotDetected)
--- NOTE | 2024-06-11 17:13 | History & Physical Report ---
Date of Service June 11, 2024 Assessment & Plan (1) Dysphagia: Plan: Worsening dysphagia x 3 weeks with an acute exacerbation 2 days prior to admission Patient stopped eating and drinking entirely, and has only had medications with some apple sauce/pudding Patient had barium swallow done and was told that she had weakening of her esophageal grewal and that she occasionally stops breathing when she eats Speech therapy consulted GI consulted for EGD N.p.o. for now except for p.o. medications A.m. 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 for now except for p.o. medications; after speech therapy and GI evaluation, can consider nectar thick fluids if patient can tolerate VTE PPx: Lovenox 40 mg SQ q24h History of Present Illness Chief Complaint: Swallowing assessment Primary Care Provider: DO Salima Fullera is a 59-year-old female with PMH of cerebral palsy, aspiration pneumonia, dysphagia, GERD, recurrent UTIs, hypothyroidism, and gastroenteritis. She presented via EMS from [facility] for difficulty swallowing. Patient has cerebral palsy and is unable to provide a history. Patient's caregiver (Nataliya) is at the bedside, and provides history. Patient has been seeing speech therapy x 3 weeks. She had a barium swallow performed and was told that the grewal of her esophagus were "weakening" and that her saliva is "fighting with her food". Speech therapy also told her that she often "stops breathing" when she eats. Patient is normally on a nectar thick diet at baseline. However, there is been acute worsening over the past 2 days, and caretakers have reported that she has stopped eating and drinking entirely. For instance, she had a "smooshed banana" yesterday morning, and some pudding with her medications today, but otherwise has not had anything to eat or drink. Caretakers also note that she has had a "watery cough" that sounds like she is "drowning". No sick contacts. No supplemental oxygen at baseline. No CPAP at night. Patient is tachycardic at 105 bpm at time of admission; SpO2 95% on RA; vitals otherwise stable. ED course: NSS 500 mL IV Unable to obtain ROS from patient at this time. However, farm or ranch animal caretaker denies fever. [employer]i Assembler notes that she sometimes points to her chest which may represent chest pain. Called patient's mother/POA (Karie) and provided update regarding admission status. Reconfirmed that the patient is a full code. Allergies Allergy/AdvReac Type Severity Reaction Status Date / Time amoxicillin Allergy Unknown ON MED LIST Verified 04/21/24 17:32 clavulanic acid Allergy Unknown ON MED LIST Verified 04/21/24 17:32 Home Medications Medication Instructions Recorded Confirmed Type baclofen 10 mg tablet 5 mg PO TID 11/14/19 06/11/24 History baclofen 20 mg tablet 20 mg PO TID 11/14/19 06/11/24 History fexofenadine 180 mg tablet 180 mg PO QAM 11/14/19 06/11/24 History (Jayleen Allergy) fluticasone propionate 50 2 spray intranasal QAM 11/14/19 06/11/24 History mcg/actuation nasal spray,suspension ketoconazole 2 % topical cream 1 applic topical BID 11/14/19 06/11/24 History metronidazole 0.75 % topical cream 1 applic topical BID 11/14/19 06/11/24 History omeprazole 40 mg capsule,delayed 40 mg PO BID 11/14/19 06/11/24 History release paroxetine HCl 40 mg tablet 40 mg PO QAM 11/14/19 06/11/24 History quetiapine 200 mg tablet 200 mg PO HS 11/14/19 06/11/24 History quetiapine 25 mg tablet 12.5 mg PO .DAILY@1600 11/14/19 06/11/24 History paroxetine HCl 20 mg tablet 20 mg PO QAM 06/28/20 06/11/24 History estradiol 0.01% (0.1 mg/gram) 1 applic vaginal 2XWK 05/12/21 06/11/24 History vaginal cream mirtazapine 7.5 mg tablet 7.5 mg PO HS 05/12/21 06/11/24 History hydroxyzine HCl 25 mg tablet See Rx Instructions .Route .COMPLEX 05/17/21 06/11/24 History polyethylene glycol 3350 17 17 g PO QAM 10/09/22 06/11/24 History gram/dose oral powder (Miralax) chlorhexidine gluconate 0.12 % 1 applic PO 2XWK 05/21/23 06/11/24 History mouthwash carbamide peroxide 6.5 % ear drops 5 drp otic (ear) WK 06/11/24 06/11/24 History (Debrox) divalproex 125 mg tablet,delayed 750 mg PO BID 06/11/24 06/11/24 History release levothyroxine 75 mcg tablet 50 mcg PO DAILY 06/11/24 06/11/24 History starch (thickening) (Thick-It oral 0 ea PO DAILY 06/11/24 06/11/24 History powder) Past Med/Surg History Problem List (Updated 06/12/24 @ 09:34 by Nikky Muñoz PA-C) Decreased oral intake Acute sore throat (Acute) Rhinovirus Neck pain on left side (Acute) Constipation (Acute) Left sided abdominal pain (Acute) Hypertension Uncontrolled hypertension Aspiration into lower respiratory tract Gastroenteritis Acute dehydration (Acute) Hypokalemia (Acute) Hypomagnesemia (Acute) Acute dehydration (Acute) GERD (gastroesophageal reflux disease) Nausea & vomiting History of back problems Encounter for pre-operative examination Cerebral palsy (Chronic) Aspiration pneumonia (Acute) Influenza B (Acute) Dehydration (Acute) High thyroid stimulating hormone (TSH) level Hypothyroidism (acquired) Urinary tract infection (Acute) Febrile illness Fever (Acute) UTI (urinary tract infection) GERD (gastroesophageal reflux disease) Dysphagia Drooling Weight loss Sepsis Dysphasia (Acute) Constipation Cerebral palsy (Chronic) Mental retardation (Chronic) Medical History Cerebral palsy COVID-19 Vomiting and diarrhea History of kidney stones Refuses to eat Dehydration Abdominal pain Intractable vomiting Colitis Surgical History Hx of colonoscopy Surgical history unknown Family History Father Diabetes Other Asthma Cancer Hypertension No family history of adverse response to anesthesia No family history of bleeding disorder Social History Smoking Status: Never smoker Second Hand Exposure: No; Do You Dip or Chew Tobacco: No; Hx Alcohol Use: No Hx Substance Use: No Preferred Language: Thai Communication Ability: Impaired Communication Ability Comment: mild intellectual Disability [employer] Weaver Required: No Beliefs That Will Affect Care: None Current Living Situation: Personal Care Facility [place] [facility] Situation [place]: [facility] current occupational status: disabled Feels Safe at Home: Yes Diet: regular during the past year weight has: decreased > 10 lbs Assistive Devices: Lift Chair and Wheelchair Review of Systems Review of Systems: See HPI above Physical Exam Physical Exam: General: no acute distress; non-toxic appearing; cooperative; SpO2 95% on RA HEENT: normocephalic, atraumatic; no scleral icterus; PERRLA; left eye deviation inward; unable to assess vision and hearing Neck: supple; no lymphadenopathy; trachea midline Skin: warm, dry without signs of tenting; no cyanosis; no rashes, bruising, lesions, or erythema noted CV: chest wall NTP; RR, tachycardic around 100 bpm; S1/S2 normal; no murmurs/rubs/gallops; pulses intact and symmetric at radial, DP, and PT Lungs: "Wet sounding" coughing fits; no acute respiratory distress; symmetrical chest wall expansion; mild expiratory wheezing on exam bilaterally ABD: Soft, NTP; moderate abdominal distention noted on the left side; BS present; no rebound/guarding MSK: Significant scoliosis; significant muscular atrophy; spine is NTP; no edema noted in the LEs b/l, nonerythematous; contractures in the upper and lower extremities bilaterally; internal rotation of arms, external rotation of feet Neuro: Unable to assess for alertness and orientation status; patient does not respond to questioning, but does respond with occasional yes or no; no focal deficits appreciated on exam; unable to assess sensation Results & Data Results & Data Vital Signs (Past 12 Hours) Vital Signs Temp Pulse Resp BP Pulse Ox O2 Del Method 06/11/24 15:37 Room Air 06/11/24 13:56 36 C L 105 H 17 126/99 95 Room Air 06/11/24 13:52 108 H Laboratory Results Abnormal lab results 06/11/24 06/11/24 06/11/24 Range/Units 14:20 14:25 14:30 RBC 3.96 L (4.20-5.40) M/uL RDW Std Deviation 50.0 H (36.4-46.3) fL Neut # (Auto) 7.05 H (1.40-6.50) K/uL [place] # (Auto) 1.24 H (0.11-0.59) K/uL Creatinine 0.46 L (0.6-1.2) mg/dl BUN/Creatinine Ratio 23.9 H (10-20) Glucose 107 H (70-99(Fasting)) mg/dl Lipase 10 L (11-82) U/L Valproic Acid 149 H (50-100) mcg/ml Entero/Rhino (PCR) DETECTED A (NotDetected) Diagnostic Findings Chest X-Ray 06/11/24 14:03 XR chest 1V not portable CLINICAL HISTORY: Chest pain, nonspecific COMPARISON STUDY: Chest CT May 25, 2023. Chest radiograph June 03, 2024. FINDINGS: Thoracic spine levoscoliosis is unchanged. Low lung volumes are unchanged. Chronic right chest wall deformity is again noted. Cardiomediastinal silhouette is stable. There is no evidence for pulmonary edema. No consolidation to suggest pneumonia. IMPRESSION: No acute cardiopulmonary findings. No significant change in appearance of the chest. ACT 112: Negative or not required by law. Electronically signed by: Jignesh Ibrahim M.D. 06/11/2024 3:20 PM Soft Tissue Neck X-Ray 06/11/24 14:03 XR soft tissue neck CLINICAL HISTORY: painful swallowing COMPARISON STUDY: Neck CT June 03, 2024. FINDINGS: Prevertebral soft tissues are unremarkable. The epiglottis is normal. Moderate multilevel degenerative disc disease and facet arthrosis within the cervical spine is incidentally noted. IMPRESSION: 1. Normal epiglottis. 2. Unremarkable prevertebral soft tissues. 3. Moderate multilevel degenerative changes within the cervical spine. ACT 112: Negative or not required by law. Electronically signed by: Jignesh Ibrahim M.D. 06/11/2024 3:19 PM ECG Additional Comments: ECG revealed sinus tachycardia at 101 bpm; QTc 446 Code Status & VTE Plan Code Status Full code (confirmed with patient's mother/POA) Supervising Physician Co-Signing Physician Notes Patient seen and examined, chart reviewed, case discussed with Juan Felix PA-C and I agree with the assessment and plan as above except as otherwise noted Labs and images reviewed Beulah is a 59-year-old female with a history of cerebral palsy, recurrent aspiration pneumonia, dysphagia, hypothyroidism, GERD who presents with suspected apneic episodes around eating, difficulty swallowing, tachycardia and decreased oral intake which has now stopped for around 2 days. She is also entero-/rhinovirus positive on admission. Speech therapy following, GI consulted for dysphagia. Hx of recent video fluoroscopy as noted. Supportive care for entero-/rhinovirus. Scattered expiratory wheezes on exam, diminished in the bases history is limited by cognitive status/CP. Agree with above PG Care Time/CCT Total # of Minutes Spent Total Time Spent with Patient: Total time spent is greater than 50% in coordination of care (as documented) at patient's floor/unit and/or counseling patient: [place] [address] INT INP/OBS CARE 3/75MIN Patient Type Established Medical Decision Making High Complexity Diagnoses Dysphagia R13.10 Rhinovirus B34.8 Cerebral palsy G80.9
[2024-06-11] MEDS: LACTATED RINGER'S 1,000 ML IV SCH (19:45)
[2024-06-11] MEDS ORDERED: hydrOXYzine HCl 25 MG TAB PO SCH (21:00)
--- OUTSIDE RECORDS SUMMARY | 2024-06-11 22:07 | External Medical Summary | Continuity of Care Document ---
Author Name Unknown Organization [address] Address [address] [place] [address] [place], [place] [id number] Care Team Providers Care Physics Technical Officer Name Role Phone Leighann Palumbo Primary Care Physician [phone] [id number] Date(s): 06/04/24 - 06/04/[address], [address] [place] [address] [phone] Encounter Diagnosis Bladder wall thickening(Discharge Diagnosis) - 06/04/24 Constipation(Discharge Diagnosis) - 06/04/24 Esophagus disorder(Discharge Diagnosis) - 06/04/24 Discharge Disposition: Home or Self Care Attending Physician: DO Palumbo Kristen M Referring Physician: DO Palumbo Kristen M Allergies, Adverse Reactions, Alerts Substance Criticality Severity Reaction Reaction Severity Status amoxicillin unknown Active Augmentin unknown Active Assessment and Plan Extracted from: Title:Office Visit Note Author:DO Palumbo Kriste n M Date:06/04/24 1.Bladder wall thickening Chronic condition, stable Goal:Resolution Data:unique tests ordered: _ Plan: _referral to urology 2.Constipation Chronic condition, stable Goal:Resolution Data:unique tests ordered: _ Plan: _doing well on current regimen 3.Esophagus disorder Chronic condition, stable Goal:Resolution Data:unique tests ordered: _ Plan: _Per ER patient needs EGD to evaluate gas of esophagus Immunizations Given and Recorded Vaccine Date Status [facility] Start [facility]: [facility]22 Status: Ordered A&D ointment prn Start: 05/11/24 11:35:00 AM EDT, A&D ointment prn Start Date: 05/11/24 Status: Ordered Acid Gone 95 mg-358 mg/15 mL oral suspension Start: 04/12/23 11:23:00 AM EDT, See Instructions, Disp# 355 mL, Refills: 11, TAKE 2 TEASPOONSFUL (10ML) BY MOUTH AFTER MEALS AND AT BEDTIME NEEDED FOR BREAKTHROUGH REFLUX (80ML/DAY) REORDER WHENNEEDED-NOT A CYCLE FILL MED, Pharmacy: [facility] Start Date: 04/12/23 Status: Ordered albuterol 0.083% for nebulization Start: 05/11/24 11:34:00 AM EDT, 1 vial via nebulizer q6h prn while awake only for sob/wheezing Start Date: 05/11/24 Status: Ordered Allergy Relief (Fexofenadine HCl) 180 mg oral tablet Start: 05/15/24 2:43:00 PM EDT, 1 tab, PO, Daily, Disp# 31 tab, Refills: 0, Pharmacy: [facility] Start Date: 05/15/24 Status: Ordered baclofen 10 mg tablet Start: 04/21/24 10:55:00 AM EDT, baclofen 10 mg tablet, See Instructions, Disp# 47 tab, Refills: 5, TAKE ONE-HALF TABLET (5MG) BY MOUTH THREE TIMES DAILY *TAKE ALONG WITH 20MG TAB = 25MG DOSE (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), Pharmacy [facility] Start Date: 04/21/24 Status: Ordered baclofen 20 mg tablet Start: 02/24/24 9:08:00 AM EDT, baclofen 20 mg tablet, See Instructions, Disp# 93 tab, Refills: 5, TAKE 1 TABLET BY MOUTH THREE TIMES DAILY *TAKE ALONG WITH 5MG TO = 25MG DOSE (DX: 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), Pharmacy [facility] Start Date: 02/24/24 Status: Ordered Botox 100 units injection Start: 06/25/23 3:46:00 PM EDT, See Instructions, Disp# 2 each, Refills: 11, USE DIRECTED FOR BILATERAL UPPER EXTREMITY INTRAMUSCULARLY INJECTIONS FOR 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 DX: SUPPLEMENT), Pharmacy: [facility] Start Date: 05/04/24 Status: Ordered Debrox Earwax Removal Kit 6.5% otic solution Start: 07/19/22 12:34:00 PM EDT, See Instructions, Disp# 30 mL, Refills: 1, 5 to 10 drop both ears weekly, [place] [facility] [place]: 07/19/22 Status: Ordered docusate calcium 240 mg oral capsule Start: 05/15/24 2:43:00 PM EDT, 1 cap, PO, bid, Disp# 62 each, Refills: 0, EVENING AND BEDTIME., Pharmacy: [facility] Start Date: 05/15/24 Status: Ordered Ear Wax Removal Drops 6.5 % Start: 05/28/24 9:55:00 AM EDT, Ear Wax Removal Drops 6.5 %, See Instructions, Disp# 15 mL, Refills:0, INSTILL 5 TO 10 DROPS INTO BOTH EARS ONCE A WEEK ON MONDAYS FOR EAR WAX, Pharmacy [facility] Start Date: 05/28/24 Status: Ordered estradiol 0.1 mg/g vaginal cream Start: 04/08/24 2:11:00 PM EDT, See Instructions, Disp# 42.5 g, Refills: 0, APPLY 1/4" CREAM TOPICALLY ON 2X2, GENTLY SWIPE OVER URETHRA 2 TIMES WEEKLY ON SATURDAY AND SATURDAY AT BEDTIME (DX MENOPAUSE), Pharmacy: [facility] Start Date: 04/08/24 Status: Ordered famotidine 20 mg oral tablet Start: 05/15/24 2:43:00 PM EDT, 1 tab, PO, qhs, Disp# 31 tab, Refills: 0, Pharmacy: [facility] Start Date: 05/15/24 Status: Ordered Fleet Glycerin Suppositories Adult rectal suppository Start: 05/24/23 4:20:00 PM EDT, 1 supp, DE, Daily, Disp# 30 supp, Refills: 11, as needed, [facility]acy: [facility] Start Date: 05/24/23 Status: Ordered fluticasone 50 mcg/inh nasal spray Start: 12/12/23 11:53:00 AM EDT, See Instructions, Disp# 16 g, Refills: 11, INSTILL 2 SPRAYS INTO EACH NOSTRIL ONCE DAILY FOR FOR ALLERGIES, Pharmacy: [facility] Start Date: 12/12/23 Status: Ordered hydrocortisone 1% topical cream Start: 06/02/21 4:26:00 PM EDT, 1 appl, topical, bid, Disp# 45 g, Pharmacy: [facility] Start Date: 06/02/21 Stop Date: 06/16/21 Status: Ordered hydrOXYzine hydrochloride 25 mg oral tablet Start: 03/25/24 1:40:00 PM EDT, See Instructions, Disp# 62 tab, Refills: 0, TAKE ONE-HALF TABLETBY MOUTH TWICE A DAY (DX: ANXIETY) and TAKE (1) TABLET BY MOUTH AT BEDTIME (DX: ANXIETY), Pharmacy:[facility] Start Date: 03/25/24 Status: Ordered ketoconazole 2% topical cream Start: 01/14/24 5:19:00 PM EDT, See Instructions, Disp# 60 g, Refills: 0, APPLY TOPICALY EVERY MORNING TO RED RASH ON TEMPLES, EYEBROWS, BACK OF EARS AND UNDER BREAST FOR RASH, Pharmacy: [facility] Start Date: 01/14/24 Status: Ordered levothyroxine 75 mcg (0.075 mg) oral tablet Start: 04/24/24 10:58:00 AM EDT, 1 tab, PO, Daily, Disp# 30 tab, Refills: 11, Pharmacy: [facility] Start Date: 04/24/24 Stop Date: 04/19/25 Status: Ordered lisinopril 5 mg oral tablet Start: 05/27/24 4:12:00 PM EDT, 1 tab, PO, Daily, Disp# 30 tab, Refills: 11, Pharmacy: [facility] Start Date: 05/27/24 Stop Date: 05/22/25 Status: Ordered METOPROLOL TARTRATE 25 MG TABS Start: 04/09/24 2:15:00 PM EDT, METOPROLOL TARTRATE 25 MG TABS Start Date: 04/09/24 Status: Ordered metroNIDAZOLE 0.75% topical cream Start: 04/17/24 10:03:00 AM EDT, See Instructions, Disp# 45 g, Refills: 5, APPLY TOPICALLY TO FACE TWICE DAILY FOR RASH, Pharmacy: [facility] Start Date: 04/17/24 Status: Ordered mirtazapine 7.5 mg oral tablet Start: 11/17/20 1:48:00 PM EST, 1 tab, PO, qhs Start Date: 11/17/20 Status: Ordered omeprazole 40 mg oral delayed release capsule Start: 02/27/24 11:10:00 AM EDT, See Instructions, Disp# 56 cap, Refills: 5, TAKE 1 CAPSULE BY MOUTHTWICE DAILY AT 8AM AND 8PM FOR GERD, Pharmacy: [facility] Start Date: 02/27/24 Status: Ordered PARoxetine 20 mg oral tablet Start: 08/16/22 4:15:00 PM EST, 1 tab, PO, Daily, Disp# 90 tab, Refills: 3, [place] [facility] [place]: 08/16/[place] Status: Ordered ricci Start: 01/30/24 3:54:00 PM EDT, Tommy wynne Product Type: Supply, See Instructions, Disp# 30 tab, Refills: 11, Take 3 captlets by mouth at bedtime, if needed for constipation. no bowel movement in 2days., [facility] Start Date: 01/30/24 Status: Ordered polyethylene glycol 3350 oral powder for reconstitution Start: 05/26/24 3:14:00 PM EDT, See Instructions, Disp# 510 g, Refills: 11, MIX 17 GRAMS (ONE CAPFUL) IN 8 OUNCES OF LIQUID AND DRINK BY MOUTH ONCE DAILY FOR CONSTIPATION, Pharmacy: [facility] Start Date: 05/26/24 Status: Ordered Potassium Chloride (Vfn-Beid-Fkb M10) 10 mEq oral tablet, extended release Start: 05/30/23 11:35:00 AM EDT, 1 tab, PO, Daily, Disp# 30 tab, Refills: 0, Pharmacy: [facility] Start Date: 05/30/23 Stop Date: 06/29/23 Status: Ordered QUEtiapine 200 mg oral tablet Start: 06/20/23 3:25:00 PM EDT, See Instructions, Disp# 30 tab, Refills: 0, 200mg at 8m, Pharmacy: [facility] Start Date: 06/20/23 Status: Ordered QUEtiapine 25 mg oral tablet Start: 06/20/23 3:25:00 PM EDT, See Instructions, Disp# 30 tab, Refills: 0, 25mg 8am, 200 mg at 8 pm, Pharmacy: [facility] Start Date: 06/20/23 Status: Ordered Senokot 8.6 mg oral tablet Start: 05/13/24 6:54:00 AM EDT, 1 tab, PO, Daily, Disp# 30 tab, Refills: 1, as needed with plenty ofwater, PRN: as needed for constipation, Pharmacy: [facility] Start Date: 05/13/24 Status: Ordered Tab-A-Donovan oral tablet Start: 05/15/24 2:43:00 PM EDT, 1 tab, PO, Daily, Disp# 31 tab, Refills: 0, Pharmacy: [facility] Start Date: 05/15/24 Status: Ordered Tab-A-Donovan oral tablet Start: 05/15/24 2:43:00 PM EDT, 1 tab, PO, Daily, Disp# 31 tab, Refills: 0, Pharmacy: [facility] Start Date: 05/15/24 Status: Ordered Thick-It Start: 04/03/24 2:19:00 PM EDT, Thick-It, eRx Product Type: Supply, See Instructions, Disp# 2 each, Refills: 0, Please add 5 teaspoons of powder to 8oz of water or fluid, 4 times a day (With meals andevening). Please offer patient up to 4 additional daily doses if desired by patient., [facility]acy [facility] Start Date: 04/03/24 Status: Ordered Tylenol Start: 05/11/24 11:35:00 AM EDT, 500mg prn Start Date: 05/11/24 Status: Ordered Voltaren 1% topical gel Start: 04/24/24 11:06:00 AM EDT, 1 appl, topical, qid, Disp# 100 g, Refills: 5, PRN: Pain, [facility]: [facility] Start Date: 04/24/24 Stop Date: 10/21/24 Status: Ordered Problem List Condition Confirmation Course [...] Effective Dates Health Status Clinical Service Informant Bladder wall thickening Discharge Diagnosis 06/04/24 Non-Specified Constipation Discharge Diagnosis 06/04/24 Non-Specified Esophagus disorder Discharge Diagnosis 06/04/24 Non-Specified Procedures Procedure Date Related Diagnosis Body [...] were taken. Sent for Heliobacter pylori testing. [place] colored mucosa suspicious for Zhao's esophagus biopsied. [...] Representation Female (finding) FCM Outpt Note * DO Palumbo Kristen M: PERFORM Event Display: FCM Outpt Note Authored Date: [id number] Chief Complaint ER follow up History of Present Illness Pt presents as ER follow up last evening for distress, abdominal distention, and swollen neck. Most symtpoms had resolved by leaving the ER. The ER made several recs as discussed below. Physical Exam G: AAAOx3, NAD H: RR normal S1/S2 no M/R/G L: CTA b/l no r/r/w A: soft +bs distended LUQ ? tenderness E: no c/C/E b/l, pos distal pulses P: normal affect and insight, no homicidal/suicidal ideation Assessment/Plan 1.Bladder wall thickening Chronic condition, stable Goal:Resolution Data:unique tests ordered: _ Plan: _referral to urology 2.Constipation Chronic condition, stable Goal:Resolution Data:unique tests ordered: _ Plan: _doing well on current regimen 3.Esophagus disorder Chronic condition, stable Goal:Resolution Data:unique tests ordered: _ Plan: _Per ER patient needs EGD to evaluate gas of esophagus Attestation I spent4 mintime in previsit planning including prepping note and chart review . I spent32 time in face to face interaction with patient concerning the issues that brought them in today. I spent4 min time in post visit planning including finishing note and depart process Total time spent today on patient visit40 min Problem List/Past Medical History Ongoing Actinic keratosis [...] Feet| Service Date: 1970Radiation therapy careHysterectomyCholecystectomyHerniaAppendectomyTonsillectomy Medications acetaminophen(Tylenol) albuterol(albuterol 0.083% for nebulization) aluminum hydroxide-magnesium carbonate(Acid Gone 95 mg-358 mg/15 mL oral suspension), See Instructions carbamide peroxide otic(Debrox Earwax Removal Kit 6.5% otic solution), See Instructions, 1 refills chlorhexidine topical(chlorhexidine 0.12% oral rinse) diclofenac topical(Voltaren 1% topical gel), 1 appl, topical, qid, PRN, 5 refills docusate(docusate calcium 240 mg oral capsule), 1 cap, PO, bid docusate(docusate calcium 240 mg oral capsule), 1 cap, PO, bid estradiol topical(estradiol 0.1 mg/g vaginal cream), See Instructions famotidine(famotidine 20 mg oral tablet), 1 tab, PO, qhs famotidine(famotidine 20 mg oral tablet), 1 tab, PO, qhs fexofenadine(Allergy Relief (Fexofenadine HCl) 180 mg oral tablet), 1 tab, PO, Daily fexofenadine(Allergy Relief (Fexofenadine HCl) 180 mg oral tablet), 1 tab, PO, Daily fluticasone nasal(fluticasone 50 mcg/inh nasal spray), See Instructions, 11 refills glycerin(Fleet Glycerin Suppositories Adult rectal suppository), 1 supp, DE, Daily, 11 refills hydrocortisone topical(hydrocortisone 1% topical cream), 1 appl, topical, bid hydrOXYzine(hydrOXYzine hydrochloride 25 mg oral tablet), See Instructions ketoconazole topical(ketoconazole 2% topical cream), See Instructions lactobacillus rhamnosus GG(Culturelle for Kids oral tablet, chewable), 1 tab, PO, Daily levothyroxine(levothyroxine 75 mcg (0.075 mg) oral tablet), 75 mcg= 1 tab, PO, Daily, 11 refills lisinopril(lisinopril 5 mg oral tablet), 5 mg= 1 tab, PO, Daily, 11 refills metroNIDAZOLE topical(metroNIDAZOLE 0.75% topical cream), See Instructions, 5 refills mirtazapine(mirtazapine 7.5 mg oral tablet), 7.5 mg= 1 tab, PO, qhs multivitamin(Tab-A-Donovan oral tablet), 1 tab, PO, Daily multivitamin(Tab-A-Donovan oral tablet), 1 tab, PO, Daily omeprazole(omeprazole 40 mg oral delayed release capsule), See Instructions, 5 refills onabotulinumtoxinA(Botox 100 units injection), See Instructions PARoxetine(PARoxetine 20 mg oral tablet), 20 mg= 1 tab, PO, Daily, 3 refills polyethylene glycol 3350(polyethylene glycol 3350 oral powder for reconstitution), See Instructions potassium chloride(Potassium Chloride (Nwg-Umvz-Qjp M10) 10 mEq oral tablet, extended release), 10 mEq= 1 tab, PO, Daily QUEtiapine(QUEtiapine 200 mg oral tablet), See Instructions QUEtiapine(QUEtiapine 25 mg oral tablet), See Instructions senna(Senokot 8.6 mg oral tablet), 8.6 mg= 1 tab, PO, Daily, PRN, 1 refills unknown medication(A&D ointment prn) unlisted medication(wynne), See Instructions, 11 refills unlisted medication(baclofen 10 mg tablet), See Instructions unlisted medication(baclofen 20 mg tablet), See Instructions unlisted medication(Thick-It), See Instructions unlisted medication(METOPROLOL TARTRATE 25 MG TABS) unlisted medication(A & D prevent ointment), See Instructions, 6 refills unlisted medication(Thick-It oral powder), See Instructions unlisted medication(Thick-It oral powder), See Instructions unlisted medication(Ear Wax Removal Drops 6.5 %), See Instructions unlisted medication(Thick-It oral powder), See Instructions Allergies Augmentinunknown amoxicillinunknown Social History [...] Recommendations Health Maintenance Pending(in the next year) OverDue Adult Influenza Vaccine due03/15/24and every 1year Due Adult COVID-19 Vaccination due06/04/24Unknown Frequency Adult Social Determinants of Health Screening due06/04/24Unknown Frequency Body Mass Index due06/04/24Unknown Frequency Satisfied(in the past 1 year) Satisfied Adult Influenza Vaccine on07/23/23.Satisfied by [address], [place] Breast Cancer Screening on02/05/24.Satisfied by JOSE Del Cid, [place] Lipid Screening on11/12/23.Satisfied by [employer]system, [employer]-box Electronic Signature on File Electronically Reviewed/Signed by: Leighann Palumbo DO Author Signature Dt/Tm:06/04/2024 05:03 PM Department of Family Medicine [facility] [place] Care team information Care Team Personnel Name: DO Hood Franklin J Position: Physician - Family Med Member Role: Lifetime Relationship Address: [address] [place] [address] [place] Name: DO Palumbo Kristen M Position: Physician - Family Med Member Role: Lifetime Relationship Address: [address] [place] [address] [place] Name: PINA Stewart Katy Marie Position: Nurse Pract - Family Med Member Role: Lifetime Relationship Address: [address] [place] [address] [place] Care Team Related Persons Name: AURY STREETER
[2024-06-11] MEDS ORDERED: Patient's HEIGHT &/or WEIGHT Needed SCH (22:15)
[2024-06-11] MEDS: BACLOFEN 10 MG TAB PO SCH (22:49)
[2024-06-11] MEDS: MIRTAZAPINE TAB 15 MG TAB PO SCH (22:49)
[2024-06-11] MEDS: BACLOFEN 20 MG TAB PO SCH (22:49)
[2024-06-11] MEDS: DIVALPROEX DELAY RELEASE 125 MG TABEC PO ONE (22:49)
[2024-06-11] MEDS: QUEtiapine FUMARATE 200 MG TAB PO SCH (22:50)
[2024-06-11] MEDS: PANTOprazole 40 MG TAB PO SCH (22:50)
[2024-06-12] MEDS: KETOCONAZOLE 2% CR 15 GM TUBE EXT SCH (00:01)
[2024-06-12] MEDS: DEXTROSE 5% IV SCH (00:01)
[2024-06-12] MEDS: VALPROATE SOD IV SCH (00:01)
[2024-06-12] MEDS: PANTOprazole 40 MG in SYRINGE 0 ML IV SCH (00:01)
[2024-06-12] MEDS: LEVOTHYROXINE SODIUM 50 MCG TABLET PO SCH (04:05)
[2024-06-12] MEDS ORDERED: DIVALPROEX DELAY RELEASE 125 MG TABEC PO SCH ×2 (08:00→09:00)
[2024-06-12] MEDS ORDERED: DIVALPROEX DELAY RELEASE 250 MG TABEC PO SCH (08:00)
[2024-06-12 08:36] LABS: Basophils # (auto) 0.02 K/uL (0.00-0.20); Basophils % (auto) 0.2 %; Eosinophils # (auto) 0.03 K/uL (0.00-0.50); Eosinophils % (auto) 0.4 %; Hematocrit (blood only) 38.8 % (37.0-47.0); Hemoglobin 13.3 g/dl (12.0-16.0); Immature Granulocytes # (auto) 0.05 K/uL (0.01-0.20); Immature Granulocytes % (auto) 0.6 %; Lymphocytes # (auto) 2.66 K/uL (1.20-3.40); Lymphocytes % (auto) 31.8 %; Mean Corpuscular Hemoglobin 31.9 pg (25.0-34.0); Mean Corpuscular Hgb Conc 34.3 g/dL (32.0-36.0); Mean Platelet Volume 10.2 fL (9.4-12.4); Monocytes # (auto) 1.01 K/uL (0.11-0.59); Monocytes % (auto) 12.1 %; Neutrophils % (auto) 54.9 %; Platelet Count 261 K/uL (130-400); RDW Coefficient of Variation 14.1 % (11.5-14.5); RDW Standard Deviation 48.4 fL (36.4-46.3); Red Blood Count 4.17 M/uL (4.20-5.40); White Blood Count 8.37 K/ul (4.8-10.8)
[2024-06-12] MEDS ORDERED: PARoxetine HCL 20 MG TAB PO SCH (09:00)
[2024-06-12] MEDS: POLYETHYLENE (MIRALAX) 17 GM PACK PO SCH (09:13)
[2024-06-12] MEDS: FEXOFENADINE HCL 180 MG TAB PO SCH (09:13)
[2024-06-12] MEDS: hydrOXYzine HCl 25 MG TAB PO SCH (09:13)
[2024-06-12] MEDS: PARoxetine HCL 20 MG TAB PO SCH (09:13)
[2024-06-12] MEDS: FLUTICASONE PROPIONATE NA SPR 16 GM BTL SCH (09:15)
[2024-06-12] MEDS: HEPARIN SOD 5,000 UNIT/0.5 ML VIAL SQ SCH (09:19)
--- NOTE | 2024-06-12 09:31 | Gastrointestinal Consultation ---
Date of Consultation June 12, 2024 Assessment & Plan (1) Rhinovirus: (2) Decreased oral intake: Plan Patient with ongoing moderate to severe oropharyngeal dysphagia also with Rhinovirus infection. She has had an EGD in 2021 for similar issues without findings. Could consider repeating EGD as an outpatient when she recovers from rhinovirus. If patient is deemed unable to tolerate po moving forward and needs a feeding tube, could re-evaluate for placement once recovered from rhinovirus or could consider outpatient IR placement as well. Would advise reflux precautions, utilization of Protonix 40 mg BID, and recommend following PSYCHIATRIC CNS consistency recommendations if/when taking food by mouth. History of Present Illness Reason for Consultation: Dysphagia Attending Physician: Chicho Calle MD History of Present Illness Patient is a 59 yo female from [facility] with PMH of cerebral palsy and intellectual disabilities who presented to the hospital due to decreased po intake. Patient has been coughing more frequently and has been taking in less food by mouth. She has had a Video Swallow evaluation for this issue and has been working with PSYCHIATRIC CNS. While these feeding issues were chronic and stable, she had a 2 day worsening of less po intake and was brought to the hospital due to this. Caretakes reported a watery cough as well. Patient's video swallow indicated moderate to severe oropharyngeal dysphagia. Upon presentation to the ED, she was found to be positive for Rhinovirus. GI has been consulted. She had an EGD in 2021 due to similar issues of reduced po intake. Other than very mild, chronic gastritis, this was unremarkable. Allergies Allergy/AdvReac Type Severity Reaction Status Date / Time amoxicillin Allergy Unknown ON MED LIST Verified 04/21/24 17:32 clavulanic acid Allergy Unknown ON MED LIST Verified 04/21/24 17:32 Home Medications Medication Instructions Recorded Confirmed Type baclofen 10 mg tablet 5 mg PO TID 11/14/19 06/11/24 History baclofen 20 mg tablet 20 mg PO TID 11/14/19 06/11/24 History fexofenadine 180 mg tablet 180 mg PO QAM 11/14/19 06/11/24 History (Jayleen Allergy) fluticasone propionate 50 2 spray intranasal QAM 11/14/19 06/11/24 History mcg/actuation nasal spray,suspension ketoconazole 2 % topical cream 1 applic topical BID 11/14/19 06/11/24 History metronidazole 0.75 % topical cream 1 applic topical BID 11/14/19 06/11/24 History omeprazole 40 mg capsule,delayed 40 mg PO BID 11/14/19 06/11/24 History release paroxetine HCl 40 mg tablet 40 mg PO QAM 11/14/19 06/11/24 History quetiapine 200 mg tablet 200 mg PO HS 11/14/19 06/11/24 History quetiapine 25 mg tablet 12.5 mg PO .DAILY@1600 11/14/19 06/11/24 History paroxetine HCl 20 mg tablet 20 mg PO QAM 06/28/20 06/11/24 History estradiol 0.01% (0.1 mg/gram) 1 applic vaginal 2XWK 05/12/21 06/11/24 History vaginal cream mirtazapine 7.5 mg tablet 7.5 mg PO HS 05/12/21 06/11/24 History hydroxyzine HCl 25 mg tablet See Rx Instructions .Route .COMPLEX 05/17/21 06/11/24 History polyethylene glycol 3350 17 17 g PO QAM 10/09/22 06/11/24 History gram/dose oral powder (Miralax) chlorhexidine gluconate 0.12 % 1 applic PO 2XWK 05/21/23 06/11/24 History mouthwash carbamide peroxide 6.5 % ear drops 5 drp otic (ear) WK 06/11/24 06/11/24 History (Debrox) divalproex 125 mg tablet,delayed 750 mg PO BID 06/11/24 06/11/24 History release levothyroxine 75 mcg tablet 50 mcg PO DAILY 06/11/24 06/11/24 History starch (thickening) (Thick-It oral 0 ea PO DAILY 06/11/24 06/11/24 History powder) Patient History Medical History Cerebral palsy COVID-19 Vomiting and diarrhea History of kidney stones Refuses to eat Dehydration Abdominal pain Intractable vomiting Colitis Surgical History Hx of colonoscopy Surgical history unknown Family History Father Diabetes Other Asthma Cancer Hypertension No family history of adverse response to anesthesia No family history of bleeding disorder Social History Smoking Status: Never smoker Second Hand Exposure: No; Do You Dip or Chew Tobacco: No; Hx Alcohol Use: No Hx Substance Use: No Preferred Language: Gambian Communication Ability: Impaired Communication Ability Comment: mild intellectual Disability Housekeeper And Laundry Assistant Required: No Beliefs That Will Affect Care: None Current Living Situation: Personal Care Facility Current Living Situation Comment: [facility] current occupational status: disabled Feels Safe at Home: Yes Diet: regular during the past year weight has: decreased > 10 lbs Assistive Devices: Lift Chair and Wheelchair Review of Systems Review of Systems: Unobtainable due to cognitive status Physical Exam Constitutional: no acute distress Respiratory: no respiratory distress Gastrointestinal (Abdomen): normal bowel sounds, soft, nontender, no hepatosplenomegaly Psychiatric: Orientation: alert and oriented x 3 Results & Data Vital Signs (Past 12 Hours) Vital Signs Temp Pulse Pulse Resp BP Pulse Ox O2 Del Method 06/12/24 07:36 98 H 06/12/24 04:00 36.9 C 99 H 18 141/76 H 98 Room Air 06/12/24 00:00 36.7 C 95 H 18 136/76 94 Room Air 06/11/24 22:03 94 H PG Care Time/CCT Total # of Minutes Spent Total Time Spent with Patient: Total time spent is greater than 50% in coordination of care (as documented) at patient's floor/unit and/or counseling patient: Coding Level of Care Code 59729 IN/OBS CONSULT LVL 4,60M Diagnoses Rhinovirus B34.8 Decreased oral intake R63.8
[2024-06-12 09:39] LABS: BUN Creatinine Ratio 25.9 (10-20); Calcium 9.3 mg/dl (8.6-10.3); Creatinine Clr Calc Pharmacy 160.9 ml/min; Est GFR (African American) 149.3 ml/min; Est GFR (Non-African American) 128.8 ml/min; Potassium 4.4 mmol/L (3.5-5.1)
--- NOTE | 2024-06-12 12:08 | Hospitalist Progress Note ---
Date of Service June 12, 2024 Assessment & Plan (1) Rhinovirus: (2) Dysphagia: (3) Cerebral palsy: (4) Hypertension: (5) Hypothyroidism (acquired): Plan 59-year-old female with past medical history of cerebral palsy living in [facility], dysphagia, hypothyroidism presents with worsening dysphagia with poor oral intake on and off for few weeks #Dysphagia Worsening over the last few weeks GI saw the patient recommended speech evaluation and outpatient follow-up with GI for EGD Speech therapy saw the patient and have recommended continuing pured diet Patient is currently refusing to eat or take any medications I spoke with patient's mother who initially declined palliative care consult, NG tube placement are PEG tube placement Speech therapy spoke with patient's mother Agata again and patient is agreeable to speaking with palliative care and is agreement and placing NG tube for feeding and medications but does not want PEG tube at this point Awaiting palliative care consult and recommendations NG tube placement for tube feeds and medications Continue gentle IV fluid hydration with LR at 80 mL/h Continue Protonix 40 mg IV twice daily Monitor renal function, electrolytes #Cerebral palsy Depakote level elevated at 149 Patient is on Depakote 750 mg twice daily Depakote dose has been decreased to 625 mg p.o. twice daily: She has been switched to IV for now since she is not taking any oral medications Once NG tube is in place, resume baclofen, Seroquel, Paxil, mirtazapine and hydroxyzine #Rhinovirus Chest x-ray did not show any evidence of infiltrates Droplet isolation precautions Supportive care #Hypothyroidism Continue levothyroxine 50 mcg daily #Hypertension Patient is not on any antihypertensives at home I suspect blood pressure elevation and heart rate elevation may be related to withdrawal from Paxil, Seroquel, mirtazapine and baclofen which she has not received since yesterday Monitor vital signs and resume medications once NG tube is in place CODE STATUS: Full code DVT prophylaxis: Heparin 5000 units subcutaneous twice daily Care plan discussed with nursing staff, speech therapy and mother Karie updated on the phone Admission and Anticipated Discharge Date Admission Date: June 11, 2024 Subjective Patient seen and examined Patient has cerebral palsy and unable to get a full review of systems baseline She appears comfortable Patient is refusing to eat or take any medications Review of Systems Review of Systems: As per HPI Physical Exam Physical Exam: General: No acute distress, appears comfortable Psych: Awake HEENT: Anicteric sclera CVS: Regular rate and rhythm Lungs: Bilateral air entry, no wheezing noted Abdomen: Soft, nontender, no rebound, no guarding Ext: No edema noted, contractures noted Results & Data Results & Data Vital Signs (Past 12 Hours) Vital Signs Temp Pulse Pulse Resp BP BP Pulse Ox 06/12/24 11:22 36.7 C 100 H 18 156/96 H 99 06/12/24 10:11 06/12/24 09:30 36.8 C 107 H 18 205/110 H 97 06/12/24 07:36 98 H 06/12/24 04:00 36.9 C 99 H 18 141/76 H 98 O2 Del Method O2 Flow Rate 06/12/24 11:22 Room Air 06/12/24 10:11 Room Air 06/12/24 09:30 Nasal Cannula 1 06/12/24 07:36 06/12/24 04:00 Room Air Laboratory Results Laboratory Results - last 24 hr 06/11/24 06/11/24 06/11/24 14:20 14:25 14:30 WBC Cancelled 10.80 RBC Cancelled 3.96 L Hgb Cancelled 12.3 Hct Cancelled 37.3 MCV Cancelled 94.2 MCH Cancelled 31.1 MCHC Cancelled 33.0 RDW Std Deviation Cancelled 50.0 H RDW Coeff of Christopher Cancelled 14.4 Plt Count Cancelled 269 MPV Cancelled 10.1 Immature Gran % (Auto) Cancelled 0.6 Neut % (Auto) Cancelled 65.2 Lymph % (Auto) Cancelled 22.5 [place] % (Auto) Cancelled 11.5 Eos % (Auto) Cancelled 0.0 Baso % (Auto) Cancelled 0.2 Neut # (Auto) Cancelled 7.05 H Lymph # (Auto) Cancelled 2.43 [place] # (Auto) Cancelled 1.24 H Eos # (Auto) Cancelled 0.00 Baso # (Auto) Cancelled 0.02 Immature Gran # (Auto) Cancelled 0.06 Absolute Nucleated RBC Cancelled Nucleated RBC % (auto) Cancelled Neutrophils % (Manual) Cancelled Band Neutrophils % Cancelled Lymphocytes % (Manual) Cancelled Prolymphocyte % Cancelled Reactive Lymphs % (Man) Cancelled Monocytes % (Manual) Cancelled Eosinophils % (Manual) Cancelled Basophils % (Manual) Cancelled Metamyelocytes % (Man) Cancelled Myelocytes % (Man) Cancelled Promyelocytes % (Man) Cancelled Blast Cells % (Manual) Cancelled Plasma Cell % (Manual) Cancelled Other Cells % Cancelled Nucleated RBC % Cancelled Neutrophils # (Manual) Cancelled Band Neutrophils # Cancelled Total Absolute Neuts Cancelled Lymphocytes # (Manual) Cancelled Prolymphocyte # Cancelled Reactive Lymphs # Cancelled Total Abs Lymphocytes Cancelled Monocytes # (Manual) Cancelled Eosinophils # (Manual) Cancelled Basophils # (Manual) Cancelled Metamyelocytes # (Man) Cancelled Myelocytes # (Manual) Cancelled Promyelocytes # (Man) Cancelled Blast Cells # (Man) Cancelled Plasma Cell # (Manual) Cancelled Other Cells # Cancelled Nucleated RBCs # (Man) Cancelled Hypersegmented Neuts Cancelled Hyposegmented Neuts Cancelled Hypogranular Neuts Cancelled Large Granular Lymphs Cancelled # Lrg Granular Lymphs Cancelled Hairy Cells Cancelled Smudge Cells Cancelled Toxic Granulation Cancelled Toxic Vacuolation Cancelled Dohle Bodies Cancelled Jovan Rods Cancelled Platelet Estimate Cancelled Hypogranular Platelets Cancelled Giant Platelets Cancelled Platelet Satelliting Cancelled RBC Morphology Cancelled Polychromasia Cancelled Hypochromasia Cancelled Poikilocytosis Cancelled Basophilic Stippling Cancelled Anisocytosis Cancelled Microcytosis Cancelled Macrocytosis Cancelled Spherocytes Cancelled Pappenheimer Bodies Cancelled Sickle Cells Cancelled Target Cells Cancelled Tear Drop Cells Cancelled Ovalocytes Cancelled Stomatocytes Cancelled Blanton-Trinity Bodies Cancelled Echinocytes Cancelled Acanthocytes (Spur) Cancelled Rouleaux Cancelled RBC Agglutinates Cancelled Schistocytes Cancelled Sezary Cell Cancelled Sodium 136 Potassium 4.5 Chloride 99 Carbon Dioxide 28 Anion Gap 9 BUN 11 Creatinine 0.46 L Est Cr Clr Drug Dosing Not Reportable Est GFR ( Amer) 125.3 Est GFR (Non-Af Amer) 108.1 BUN/Creatinine Ratio 23.9 H Glucose 107 H Calcium 9.2 Total Bilirubin 0.2 AST 17 ALT 10 Alkaline Phosphatase 84 Troponin I High Sens 5.4 Total Protein 6.8 Albumin 3.7 Globulin 3.1 Albumin/Globulin Ratio 1.2 Lipase 10 L Valproic Acid 149 H Adenovirus (PCR) Not Detected B. pertussis DNA (PCR) Not Detected B.parapertussis DNA PCR Not Detected C. pneumoniae DNA (PCR) Not Detected Coronavirus OC43 (PCR) Not Detected Coronavirus HKU1 (PCR) Not Detected Coronavirus 229E (PCR) Not Detected SARS-CoV-2 (PCR) Not Detected Coronavirus NL63 (PCR) Not Detected Human Metapneumovir PCR Not Detected Influenza Type A (PCR) Not Detected Influenza Type B (PCR) Not Detected M. pneumoniae (PCR) Not Detected Parainfluenza 1 (PCR) Not Detected Parainfluenza 2 (PCR) Not Detected Parainfluenza 3 (PCR) Not Detected Parainfluenza 4 (PCR) Not Detected RSV (PCR) Not Detected Entero/Rhino (PCR) DETECTED A Group A Strep (PCR) NOT DETECTED Blood Parasites ID Cancelled 06/12/24 07:55 WBC 8.37 RBC 4.17 L Hgb 13.3 Hct 38.8 MCV 93.0 MCH 31.9 MCHC 34.3 RDW Std Deviation 48.4 H RDW Coeff of Christopher 14.1 Plt Count 261 MPV 10.2 Immature Gran % (Auto) 0.6 Neut % (Auto) 54.9 Lymph % (Auto) 31.8 [place] % (Auto) 12.1 Eos % (Auto) 0.4 Baso % (Auto) 0.2 Neut # (Auto) 4.60 Lymph # (Auto) 2.66 [place] # (Auto) 1.01 H Eos # (Auto) 0.03 Baso # (Auto) 0.02 Immature Gran # (Auto) 0.05 Absolute Nucleated RBC Nucleated RBC % (auto) Neutrophils % (Manual) Band Neutrophils % Lymphocytes % (Manual) Prolymphocyte % Reactive Lymphs % (Man) Monocytes % (Manual) Eosinophils % (Manual) Basophils % (Manual) Metamyelocytes % (Man) Myelocytes % (Man) Promyelocytes % (Man) Blast Cells % (Manual) Plasma Cell % (Manual) Other Cells % Nucleated RBC % Neutrophils # (Manual) Band Neutrophils # Total Absolute Neuts Lymphocytes # (Manual) Prolymphocyte # Reactive Lymphs # Total Abs Lymphocytes Monocytes # (Manual) Eosinophils # (Manual) Basophils # (Manual) Metamyelocytes # (Man) Myelocytes # (Manual) Promyelocytes # (Man) Blast Cells # (Man) Plasma Cell # (Manual) Other Cells # Nucleated RBCs # (Man) Hypersegmented Neuts Hyposegmented Neuts Hypogranular Neuts Large Granular Lymphs # Lrg Granular Lymphs Hairy Cells Smudge Cells Toxic Granulation Toxic Vacuolation Dohle Bodies Jovan Rods Platelet Estimate Hypogranular Platelets Giant Platelets Platelet Satelliting RBC Morphology Polychromasia Hypochromasia Poikilocytosis Basophilic Stippling Anisocytosis Microcytosis Macrocytosis Spherocytes Pappenheimer Bodies Sickle Cells Target Cells Tear Drop Cells Ovalocytes Stomatocytes Blanton-Trinity Bodies Echinocytes Acanthocytes (Spur) Rouleaux RBC Agglutinates Schistocytes Sezary Cell Sodium 139 Potassium 4.4 Chloride 102 Carbon Dioxide 29 Anion Gap 8 BUN 7 Creatinine 0.27 L Est Cr Clr Drug Dosing 160.9 Est GFR ( Amer) 149.3 Est GFR (Non-Af Amer) 128.8 BUN/Creatinine Ratio 25.9 H Glucose 78 Calcium 9.3 Total Bilirubin AST ALT Alkaline Phosphatase Troponin I High Sens Total Protein Albumin Globulin Albumin/Globulin Ratio Lipase Valproic Acid Adenovirus (PCR) B. pertussis DNA (PCR) B.parapertussis DNA PCR C. pneumoniae DNA (PCR) Coronavirus OC43 (PCR) Coronavirus HKU1 (PCR) Coronavirus 229E (PCR) SARS-CoV-2 (PCR) Coronavirus NL63 (PCR) Human Metapneumovir PCR Influenza Type A (PCR) Influenza Type B (PCR) M. pneumoniae (PCR) Parainfluenza 1 (PCR) Parainfluenza 2 (PCR) Parainfluenza 3 (PCR) Parainfluenza 4 (PCR) RSV (PCR) Entero/Rhino (PCR) Group A Strep (PCR) Blood Parasites ID Diagnostic Findings Chest X-Ray 06/11/24 14:03 XR chest 1V not portable CLINICAL HISTORY: Chest pain, nonspecific COMPARISON STUDY: Chest CT May 25, 2023. Chest radiograph June 03, 2024. FINDINGS: Thoracic spine levoscoliosis is unchanged. Low lung volumes are unchanged. Chronic right chest wall deformity is again noted. Cardiomediastinal silhouette is stable. There is no evidence for pulmonary edema. No consolidation to suggest pneumonia. IMPRESSION: No acute cardiopulmonary findings. No significant change in appearance of the chest. ACT 112: Negative or not required by law. Electronically signed by: Jignesh Ibrahim M.D. 06/11/2024 3:20 PM Soft Tissue Neck X-Ray 06/11/24 14:03 XR soft tissue neck CLINICAL HISTORY: painful swallowing COMPARISON STUDY: Neck CT June 03, 2024. FINDINGS: Prevertebral soft tissues are unremarkable. The epiglottis is normal. Moderate multilevel degenerative disc disease and facet arthrosis within the cervical spine is incidentally noted. IMPRESSION: 1. Normal epiglottis. 2. Unremarkable prevertebral soft tissues. 3. Moderate multilevel degenerative changes within the cervical spine. ACT 112: Negative or not required by law. Electronically signed by: Jignesh Ibrahim M.D. 06/11/2024 3:19 PM PG Care Time/CCT Total # of Minutes Spent Total Time Spent with Patient: Total time spent is greater than 50% in coordination of care (as documented) at patient's floor/unit and/or counseling patient: Coding Level of Care Code 21932 SUB INP/OBS CARE 3/50MIN Diagnoses Rhinovirus B34.8 Dysphagia R13.10 Cerebral palsy G80.9 Cerebral palsy type: unspecified type Hypertension I10 Hypothyroidism (acquired) E03.9 (3) Cerebral palsy Cerebral palsy type: unspecified type Qualified Code(s): G80.9 - Cerebral palsy, unspecified
[2024-06-12] MEDS: QUEtiapine FUMARATE 25 MG TABLET PO SCH (17:24)
--- NOTE | 2024-06-12 17:36 | XRay Report ---
XR KUB/Abdomen 1 view CLINICAL HISTORY: NGT Placement TECHNIQUE: 1 view of the abdomen was obtained. Comparison: Comparison is made to abdomen radiograph 05/21/2023 FINDINGS: Enteric tube side-port terminates above the diaphragm. Degenerative changes are seen in the visualize d skeleton. The bowel gas pattern is nonobstructive. A moderate amount of stool is noted within the l arge bowel. IMPRESSION: Enteric tube side-port terminates above the diaphragm and can be advanced approximately 8 cm for impr phyllis positioning. ACT 112: Negative or not required by law. Electronically signed by: Kenny Funes M.D. 06/12/2024 5:35 PM
[2024-06-12] MEDS: hydrOXYzine HCl 25 MG TAB NG SCH ×2 (19:53→21:30)
[2024-06-12] MEDS: BACLOFEN 20 MG TAB GT SCH (19:53)
[2024-06-12] MEDS: LEVOTHYROXINE SODIUM 50 MCG TABLET NG SCH (19:53)
[2024-06-12] MEDS: BACLOFEN 10 MG TAB GT SCH (19:53)
[2024-06-12] MEDS: POLYETHYLENE (MIRALAX) 17 GM PACK NG SCH (19:54)
[2024-06-12] MEDS: QUEtiapine FUMARATE 25 MG TABLET NG SCH (19:54)
--- NOTE | 2024-06-12 20:50 | XRay Report ---
XR KUB/Abdomen 1 view CLINICAL HISTORY: NGT Placement TECHNIQUE: 1 view of the abdomen was obtained. Comparison: Comparison is made to abdomen radiograph 06/12/2024 FINDINGS: Enteric tube has been advanced and the tip and side port now lies below the diaphragm. Degenerative c hanges are seen in the visualized skeleton. The bowel gas pattern is nonobstructive. A moderate amoun t of stool is noted within the large bowel. IMPRESSION: Satisfactory positioning of the enteric tube status post advancement. ACT 112: Negative or not required by law. Electronically signed by: Kenny Funes M.D. 06/12/2024 8:47 PM
[2024-06-12] MEDS ORDERED: hydrOXYzine HCl 25 MG TAB PO SCH (21:00)
[2024-06-12] MEDS: QUEtiapine FUMARATE 200 MG TAB PO SCH (21:30)
[2024-06-12] MEDS: PARoxetine HCL 20 MG TAB NG SCH (21:30)
[2024-06-12] MEDS: MIRTAZAPINE TAB 15 MG TAB NG SCH (21:32)
--- NOTE | 2024-06-12 22:53 | Electrocardiogram Report ---
Test Reason : Blood Pressure : */* mmHG Vent. Rate : 101 BPM Atrial Rate : 101 BPM P-R Int : 128 ms QRS Dur : 66 ms QT Int : 344 ms P-R-T Axes : 49 37 56 degrees QTcB Int : 446 ms Sinus tachycardia Septal infarct , age undetermined Nonspecific T wave abnormality Abnormal ECG When compared with ECG of 03-Jun-2024 12:54, Septal infarct is now Present Nonspecific T wave abnormality now evident in Anterior leads Confirmed by Patrice Drake ([id number]) on 06/12/2024 10:53:39 PM Referred By: REFERRED SELF Confirmed By: Patrice Drake
--- NOTE | 2024-06-13 01:55 | Communication Note ---
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 Patient has been refusing NGT, very distressed Family (parents) notified and were planning to come see her later this evening to try to change her mind Offered a telemed consult once parents arrive notified by nursing that parents came, convinced pt to have NGT placed and now pt is very upset and tearful with NGT consult deferred to Saturday when I return to inpatient. I will be in OP Clinic Saturday. Please page me for any urgent needs through the weekend. Pt not seen, no charge submitted. Thank you for allowing us to participate in the ongoing care of this patient. Please page with any additional concerns. Min Mckeon DNP Director, Palliative Medicine
[2024-06-13 07:32] LABS: Basophils # (auto) 0.02 K/uL (0.00-0.20); Basophils % (auto) 0.2 %; Eosinophils # (auto) 0.01 K/uL (0.00-0.50); Eosinophils % (auto) 0.1 %; Hematocrit (blood only) 37.7 % (37.0-47.0); Hemoglobin 12.5 g/dl (12.0-16.0); Immature Granulocytes # (auto) 0.06 K/uL (0.01-0.20); Immature Granulocytes % (auto) 0.5 %; Lymphocytes # (auto) 1.98 K/uL (1.20-3.40); Lymphocytes % (auto) 16.9 %; Mean Corpuscular Hemoglobin 31.3 pg (25.0-34.0); Mean Corpuscular Hgb Conc 33.2 g/dL (32.0-36.0); Mean Corpuscular Volume 94.3 fL (80.0-100.0); Mean Platelet Volume 10.1 fL (9.4-12.4); Monocytes # (auto) 1.31 K/uL (0.11-0.59); Monocytes % (auto) 11.2 %; Neutrophils # (auto) 8.32 K/uL (1.40-6.50); Neutrophils % (auto) 71.1 %; Platelet Count 264 K/uL (130-400); RDW Standard Deviation 48.4 fL (36.4-46.3)
[2024-06-13 07:57] LABS: BUN Creatinine Ratio 17.9 (10-20); Creatinine Clr Calc Pharmacy 159.5 ml/min; Est GFR (African American) 147.5 ml/min; Est GFR (Non-African American) 127.3 ml/min; Magnesium 1.6 mg/dl (1.7-2.4); Potassium 3.8 mmol/L (3.5-5.1)
[2024-06-13] MEDS: MAGNESIUM SULFATE / D5W 1 GM/100 ML BAG IV SCH (09:33)
[2024-06-13] MEDS: TUBE FEEDING WATER FLUSH NG SCH (10:16)
[2024-06-13] MEDS: POTASSIUM CHLORIDE 20 MEQ/15 ML UDC NG STA (10:16)
[2024-06-13] MEDS: ACETAMINOPHEN SUSP 1000 MG/31.2 ML UDP NG STA (11:13)
--- NOTE | 2024-06-13 11:15 | Hospitalist Progress Note ---
Date of Service June 13, 2024 Assessment & Plan (1) Rhinovirus: (2) Dysphagia: (3) Cerebral palsy: (4) Hypertension: (5) Hypothyroidism (acquired): Plan 59-year-old female with past medical history of cerebral palsy living in [facility], dysphagia, hypothyroidism presents with worsening dysphagia with poor oral intake on and off for few weeks #Dysphagia Worsening over the last few weeks GI saw the patient recommended speech evaluation and outpatient follow-up with GI for EGD I spoke with Dr. Vaughn from GI today: He will speak with patient's mother Karie today and, with the plan Speech therapy saw the patient and have recommended continuing pured diet Patient is currently refusing to eat or take any medications Patient currently has an NG tube and tube feeds started Start water flushes 125 mL every 4 hours via NG tube NG tube placement for tube feeds and medications Continue gentle IV fluid hydration with LR at 75 mL/h Continue Protonix 40 mg IV twice daily Monitor renal function, electrolytes #Cerebral palsy Depakote level elevated at 149 Patient is on Depakote 750 mg twice daily Depakote dose has been decreased to 625 mg p.o. twice daily: She has been switched to IV for now since she is not taking any oral medications Continue baclofen, Seroquel, Paxil, mirtazapine and hydroxyzine #Rhinovirus Chest x-ray did not show any evidence of infiltrates Droplet isolation precautions Start Tylenol as needed Start Mucinex 400 mg 3 times daily as decongestant Supportive care #Hypothyroidism Continue levothyroxine 50 mcg daily #Hypertension Patient is not on any antihypertensives at home I suspect blood pressure elevation and heart rate elevation may be related to withdrawal from Paxil, Seroquel, mirtazapine and baclofen which she had not received since admission and patient is not receiving them through NG tube. Monitor vital signs for now CODE STATUS: Full code DVT prophylaxis: Heparin 5000 units subcutaneous twice daily Care plan discussed with nursing staff, speech therapy and mother Karie ([phone]) updated on the phone Admission and Anticipated Discharge Date Admission Date: June 11, 2024 Subjective Patient seen and examined Patient is cerebral palsy but she is still able to communicate with yes and no answers Patient does acknowledge she has throat pain when I asked her with a yes or no answer She allowed me to look into her throat Unable to get a full review of systems She appears agitated and wants to go home to her fdc NG tube were ordered yesterday but were not started by overnight nursing staff Review of Systems Review of Systems: As per HPI Physical Exam Physical Exam: General: Mildly agitated Psych: Awake HEENT: Anicteric sclera, throat exam shows mild erythema, no edema noted, no uvular edema noted CVS: Regular rate and rhythm Lungs: Bilateral air entry, no wheezing noted Abdomen: Soft, nontender, no rebound, no guarding Ext: No edema noted, contractures noted Results & Data Results & Data Vital Signs (Past 12 Hours) Vital Signs Temp Pulse Pulse Resp BP Pulse Ox O2 Del Method 06/13/24 07:48 37.7 C H 106 H 18 158/93 H 95 Room Air 06/13/24 06:00 107 H 06/13/24 03:02 36.9 C 103 H 20 135/76 93 Room Air Laboratory Results Laboratory Results - last 24 hr 06/12/24 06/12/24 06/13/24 18:25 18:41 06:23 WBC 11.70 H RBC 4.00 L Hgb 12.5 Hct 37.7 MCV 94.3 MCH 31.3 MCHC 33.2 RDW Std Deviation 48.4 H RDW Coeff of Christopher 14.0 Plt Count 264 MPV 10.1 Immature Gran % (Auto) 0.5 Neut % (Auto) 71.1 Lymph % (Auto) 16.9 [place] % (Auto) 11.2 Eos % (Auto) 0.1 Baso % (Auto) 0.2 Neut # (Auto) 8.32 H Lymph # (Auto) 1.98 [place] # (Auto) 1.31 H Eos # (Auto) 0.01 Baso # (Auto) 0.02 Immature Gran # (Auto) 0.06 Sodium 137 Potassium 3.8 Chloride 98 Carbon Dioxide 26 Anion Gap 13 H BUN 5 L Creatinine 0.28 L Est Cr Clr Drug Dosing 159.5 Est GFR ( Amer) 147.5 Est GFR (Non-Af Amer) 127.3 BUN/Creatinine Ratio 17.9 Glucose 91 POC Glucose 92 Calcium 9.0 Magnesium 1.6 L Nasal Screen MRSA (PCR) Negative 06/13/24 08:08 WBC RBC Hgb Hct MCV MCH MCHC RDW Std Deviation RDW Coeff of Christopher Plt Count MPV Immature Gran % (Auto) Neut % (Auto) Lymph % (Auto) [place] % (Auto) Eos % (Auto) Baso % (Auto) Neut # (Auto) Lymph # (Auto) [place] # (Auto) Eos # (Auto) Baso # (Auto) Immature Gran # (Auto) Sodium Potassium Chloride Carbon Dioxide Anion Gap BUN Creatinine Est Cr Clr Drug Dosing Est GFR ( Amer) Est GFR (Non-Af Amer) BUN/Creatinine Ratio Glucose POC Glucose 116 H Calcium Magnesium Nasal Screen MRSA (PCR) PG Care Time/CCT Total # of Minutes Spent Total Time Spent with Patient: Total time spent is greater than 50% in coordination of care (as documented) at patient's floor/unit and/or counseling patient: Coding Level of Care Code 74559 SUB INP/OBS CARE 3/50MIN Diagnoses Rhinovirus B34.8 Dysphagia R13.10 Cerebral palsy G80.9 Cerebral palsy type: unspecified type Hypertension I10 Hypothyroidism (acquired) E03.9 (3) Cerebral palsy Cerebral palsy type: unspecified type Qualified Code(s): G80.9 - Cerebral palsy, unspecified
--- NOTE | 2024-06-13 12:17 | Gastroenterology Progress Note ---
Date of Service June 13, 2024 Assessment & Plan (1) Decreased oral intake: Plan: Nutrition Patient currently has an NG tube in place she has been evaluated by speech to feel that she is failed swallow evaluation but the swallow evaluation will be difficult to do in this patient with cerebral palsy also her mother states that she was eating well till about a few days ago before she came to the hospital and maybe this environment as well as this viral illness is causing the symptoms there is some concern of abnormal imaging on the CT scan at the current time she is getting fed by means of an NG tube which is not a good long-term solution hence I would recommend that we do an EGD on Saturday and with the findings of the EGD have a repeat discussion with the family regarding future nutritional requirements and how they will be met we will tentatively plan for EGD Saturday Admission and Anticipated Discharge Date Admission Date: June 11, 2024 Subjective Patient has cerebral palsy and she currently has a feeding tube cannot really obtain much history from her most of the history is obtained from speaking with the nurse who states she has been a bit agitated I also called the patient's mother Karie Lara a very pleasant elderly lady who is actually quite distressed because of her daughter she herself has got poor health as per the mother's the patient was eating pill about a few days ago and then probably she had this viral infection and then she is not eating currently she has been evaluated by speech and she has a feeding tube in place the mother is not keen on getting an feeding tube right now as she feels that she was eating recently on a recent CT scan there was some dilation of the esophagus of unknown significance Review of Systems Review of Systems: Unable to obtain Physical Exam Constitutional: Patient with cerebral palsy and a feeding tube Respiratory: Clear anteriorly Cardiovascular: S1 and S2 Gastrointestinal (Abdomen): Soft no masses appreciated Results & Data Results & Data Vital Signs (Past 12 Hours) Vital Signs Temp Pulse Pulse Resp BP BP Pulse Ox 06/13/24 11:47 37.1 C 119 H 20 178/119 H 97 06/13/24 07:48 37.7 C H 106 H 18 158/93 H 95 06/13/24 06:00 107 H 06/13/24 03:02 36.9 C 103 H 20 135/76 93 O2 Del Method 06/13/24 11:47 Room Air 06/13/24 07:48 Room Air 06/13/24 06:00 06/13/24 03:02 Room Air PG Care Time/CCT Total # of Minutes Spent Total Time Spent with Patient: Total time spent is greater than 50% in coordination of care (as documented) at patient's floor/unit and/or counseling patient: Coding Level of Care Code 72281 SUB INP/OBS CARE 2/35MIN Diagnoses Decreased oral intake R63.8
[2024-06-13] MEDS: SODIUM CHLORIDE 0.9% 1,000 ML IV SCH (12:45)
[2024-06-13] MEDS: FIBERSOURCE HN 1.2 CAL 1000 ML BAG NG SCH (15:00)
[2024-06-13] MEDS: guaiFENesin SUGAR FREE 200 MG/10 ML UDC NG SCH (16:06)
[2024-06-13] MEDS: LORazepam 2 MG/1 ML VIAL IV STA (16:07)
[2024-06-13] MEDS: KETOROLAC TROMETHAMINE 15 MG/ML VIAL IV ONE (16:07)
[2024-06-13] MEDS: diphenhydrAMINE HCL 25 MG/10 ML UDC NG ONE (16:07)
[2024-06-13] MEDS: LACTATED RINGER'S 1,000 ML IV SCH (16:42)
[2024-06-13] MEDS ORDERED: ACETAMINOPHEN SUSP 1000 MG/31.2 ML UDP NG PRN (17:30)
--- NOTE | 2024-06-13 22:10 | XRay Report ---
KUB CLINICAL HISTORY: Enteric tube placement. FINDINGS: 3 AP, portable, supine abdominal radiographs are compared to study dated 06/12/2024 and hossein elated with abdominal CT dated 06/03/2024. An enteric tube is in place. The tip projects below the rubi phragm over the proximal stomach. The side holes are located at the level of the diaphragm. There is no radiographic evidence of bowel obstruction. No intraperitoneal free air is suggested on these supi ne images. There are no abnormal abdominal calcifications. The lung parenchyma is clear as visualized . The bony structures appear intact. IMPRESSION: 1. An enteric tube is in place as above. This has been pulled back as compared to yesterday and the s ideholes are located at the level of the diaphragm. This may need to be advanced. 2. No bowel obstruction is seen. Electronically signed by: Capo Haskins M.D. 06/13/2024 10:08 PM
[2024-06-14 07:11] LABS: Basophils # (auto) 0.02 K/uL (0.00-0.20); Basophils % (auto) 0.2 %; Eosinophils # (auto) 0.03 K/uL (0.00-0.50); Eosinophils % (auto) 0.3 %; Hemoglobin 11.4 g/dl (12.0-16.0); Immature Granulocytes # (auto) 0.04 K/uL (0.01-0.20); Immature Granulocytes % (auto) 0.4 %; Lymphocytes # (auto) 1.79 K/uL (1.20-3.40); Lymphocytes % (auto) 18.7 %; Mean Corpuscular Hemoglobin 31.8 pg (25.0-34.0); Mean Corpuscular Hgb Conc 34.5 g/dL (32.0-36.0); Mean Corpuscular Volume 91.9 fL (80.0-100.0); Mean Platelet Volume 10.2 fL (9.4-12.4); Monocytes # (auto) 1.14 K/uL (0.11-0.59); Monocytes % (auto) 11.9 %; Neutrophils # (auto) 6.54 K/uL (1.40-6.50); Neutrophils % (auto) 68.5 %; Platelet Count 255 K/uL (130-400); RDW Coefficient of Variation 14.1 % (11.5-14.5); Red Blood Count 3.59 M/uL (4.20-5.40); White Blood Count 9.56 K/ul (4.8-10.8)
[2024-06-14 07:28] LABS: BUN Creatinine Ratio 21.4 (10-20); Calcium 8.5 mg/dl (8.6-10.3); Creatinine Clr Calc Pharmacy 156.5 ml/min; Est GFR (African American) 147.5 ml/min; Est GFR (Non-African American) 127.3 ml/min; Magnesium 2.1 mg/dl (1.7-2.4); Potassium 3.7 mmol/L (3.5-5.1)
[2024-06-14] MEDS: ONDANSETRON INJ 2 MG/ML 2 ML VIAL IV PRN (07:47)
--- NOTE | 2024-06-14 11:03 | Gastroenterology Progress Note ---
Date of Service June 14, 2024 Assessment & Plan (1) Decreased oral intake: Plan: Patient is complicated case of cerebral palsy who as per notes is having difficulty eating in view of failed speech evaluation I spoke with the mother multiple times yesterday who unfortunately does not have good health herself and neither does her and hence cannot really come to the hospital very easily she is extremely worried and concerned about her daughter and is not very convinced about a PEG tube in fact is quite adamant currently that she does not want to have a PEG tube placed she states that her daughter was eating by herself about a week ago he would like us to explore all other causes of dysphagia before we proceed with a PEG tube for feeding purposes patient is currently being fed by means of an NG tube which is not a long-term solution I am not exactly sure whether the patient being in the foreign environment is also contributing to her swallowing issues but she has been having these problems for a while in light of my extensive discussion with the mother we will plan for an upper endoscopy first and then based upon the results we will plan for other modalities for ensuring that patient gets adequate nutrition and discussion with the family Admission and Anticipated Discharge Date Admission Date: June 11, 2024 Subjective Patient appears as before she has cerebral palsy and is difficult to evaluate the patient in light of that she has an NG tube which is being used for feeding at the current time. As per the nurse they placed a Camacho last night she had some complaints of nausea as per the nurse and she was given Zofran she is getting tube feeds at 30 mL/h Review of Systems Review of Systems: Could not obtain in light of the fact that the patient has cerebral palsy Physical Exam Constitutional: Patient with cerebral palsy has an NG tube in place Respiratory: Clear anteriorly Cardiovascular: S1 and S2 Gastrointestinal (Abdomen): Soft no tenderness or masses appreciated Results & Data Results & Data Vital Signs (Past 12 Hours) Vital Signs Temp Pulse Pulse Resp BP Pulse Ox O2 Del Method 06/14/24 08:28 98 H 06/14/24 08:28 Room Air 06/14/24 08:24 37 C 111 H 17 156/90 H 93 Room Air 06/13/24 23:36 82 06/13/24 23:12 36.5 C 87 18 125/74 93 Room Air PG Care Time/CCT Total # of Minutes Spent Total Time Spent with Patient: Total time spent is greater than 50% in coordination of care (as documented) at patient's floor/unit and/or counseling patient: Coding Level of Care Code 25777 SUB INP/OBS CARE 2/35MIN Diagnoses Decreased oral intake R63.8
--- NOTE | 2024-06-14 11:45 | Hospitalist Progress Note ---
Date of Service June 14, 2024 Assessment & Plan (1) Rhinovirus: (2) Dysphagia: (3) Cerebral palsy: (4) Hypertension: (5) Hypothyroidism (acquired): Plan 59-year-old female with past medical history of cerebral palsy living in [facility], dysphagia, hypothyroidism presents with worsening dysphagia with poor oral intake on and off for few weeks #Dysphagia Worsening over the last few weeks Dr. Piero Gimenez from GI saw the patient and is planning on doing an EGD tomorrow Speech therapy saw the patient and have recommended continuing pured diet Patient is currently refusing to eat or take any medications Patient currently has an NG tube and tube feeds started Water flushes 100 mL every 6 hours via NG tube NG tube for tube feeds and medications NG tube feeds a [employer] HN with goal rate of 50 mL/h for dietitian recommendations Continue gentle IV fluid hydration with LR at 50 mL/h Continue Protonix 40 mg IV twice daily Monitor renal function, electrolytes Check KUB Patient's mother has not changed her mind and is agreeable to PEG tube and would like to speak to GI: I have let Dr. Piero Gimenez know about mother's wishes and he will contact her and discuss PEG tube with her #Cerebral palsy Depakote level elevated at 149 Patient is on Depakote 750 mg twice daily Depakote dose has been decreased to 625 mg p.o. twice daily: She has been switched to IV for now since she is not taking any oral medications Continue baclofen, Seroquel, Paxil, mirtazapine and hydroxyzine #Rhinovirus Chest x-ray did not show any evidence of infiltrates Droplet isolation precautions Continue Continue Mucinex 400 mg 3 times daily as decongestant Supportive care #Hypothyroidism Continue levothyroxine 50 mcg daily # Elevated blood pressure Patient is not on any antihypertensives at home I suspect blood pressure elevation and heart rate elevation may be related to withdrawal from Paxil, Seroquel, mirtazapine and baclofen which she had not received since admission and patient is not receiving them through NG tube. Blood pressure readings are much better now Monitor vital signs for now CODE STATUS: Full code DVT prophylaxis: Heparin 5000 units subcutaneous twice daily Care plan discussed with nursing staff, speech therapy and mother Karie ([phone]) updated on the phone Admission and Anticipated Discharge Date Admission Date: June 11, 2024 Subjective Patient seen and examined Labs reviewed Patient was given nausea medications with Zofran overnight and tube feeds were kept at 30 mL/h Patient answers yes and no answers She denies chest pain denies any abdominal pain She flinches when touching her abdomen and when I asked her if she is in pain, patient states no and I asked her if she does not like her belly to be touched and she said yes. Patient does say yes to throat pain Patient is scheduled for EGD tomorrow Review of Systems Review of Systems: As per HPI Physical Exam Physical Exam: General: No acute distress Psych: Awake HEENT: Anicteric sclera CVS: Regular rate and rhythm Lungs: Bilateral air entry, no wheezing noted Abdomen: Soft, nontender, no rebound, no guarding Ext: No edema noted, contractures noted Results & Data Results & Data Vital Signs (Past 12 Hours) Vital Signs Temp Pulse Pulse Resp BP Pulse Ox O2 Del Method 06/14/24 08:28 98 H 06/14/24 08:28 Room Air 06/14/24 08:24 37 C 111 H 17 156/90 H 93 Room Air Laboratory Results Laboratory Results - last 24 hr 06/14/24 05:53 WBC 9.56 RBC 3.59 L Hgb 11.4 L Hct 33.0 L MCV 91.9 MCH 31.8 MCHC 34.5 RDW Std Deviation 48.0 H RDW Coeff of Christopher 14.1 Plt Count 255 MPV 10.2 Immature Gran % (Auto) 0.4 Neut % (Auto) 68.5 Lymph % (Auto) 18.7 [place] % (Auto) 11.9 Eos % (Auto) 0.3 Baso % (Auto) 0.2 Neut # (Auto) 6.54 H Lymph # (Auto) 1.79 [place] # (Auto) 1.14 H Eos # (Auto) 0.03 Baso # (Auto) 0.02 Immature Gran # (Auto) 0.04 Sodium 135 L Potassium 3.7 Chloride 99 Carbon Dioxide 28 Anion Gap 8 BUN 6 Creatinine 0.28 L Est Cr Clr Drug Dosing 156.5 Est GFR ( Amer) 147.5 Est GFR (Non-Af Amer) 127.3 BUN/Creatinine Ratio 21.4 H Glucose 145 H Calcium 8.5 L Magnesium 2.1 PG Care Time/CCT Total # of Minutes Spent Total Time Spent with Patient: Total time spent is greater than 50% in coordination of care (as documented) at patient's floor/unit and/or counseling patient: Coding Level of Care Code 88923 SUB INP/OBS CARE 350MIN Diagnoses Rhinovirus B34.8 Dysphagia R13.10 Cerebral palsy G80.9 Cerebral palsy type: unspecified type Hypertension I10 Hypothyroidism (acquired) E03.9 (3) Cerebral palsy Cerebral palsy type: unspecified type Qualified Code(s): G80.9 - Cerebral palsy, unspecified
[2024-06-14] MEDS ORDERED: ACETAMINOPHEN SUSP 1000 MG/31.2 ML UDP PO STA (11:48)
[2024-06-14] MEDS ORDERED: TUBE FEEDING WATER FLUSH NG SCH (12:00)
[2024-06-14] MEDS: TUBE FEEDING WATER FLUSH NG SCH (12:34)
[2024-06-14] MEDS: KETOROLAC TROMETHAMINE 15 MG/ML VIAL IV ONE (12:35)
[2024-06-14] MEDS: ACETAMINOPHEN SUSP 1000 MG/31.2 ML UDP NG ONE (12:35)
[2024-06-14] MEDS: bisacodyL 10 MG SUPP PR STA (12:35)
--- NOTE | 2024-06-14 13:02 | XRay Report ---
PA CHEST WITH ABDOMINAL SERIES CLINICAL HISTORY: Abdominal distention. FINDINGS: A PA chest radiograph is compared to study dated 06/11/2024. The cardiomediastinal silhouette is unrem arkable. Atelectasis is noted at the lung bases. The lungs and pleural spaces are otherwise clear. No pneumothorax is seen. The skeletal structures are osteopenic. The bony thorax is grossly intact. The re is S-shaped thoracolumbar scoliosis. Supine and erect abdominal radiographs are compared to study dated 06/13/2024. Correlation is made to abdominal CT dated 06/03/2024. An enteric tube is unchanged in position. The tip projects over the gas tric fundus. A catheter projects over the pelvis. There is a nonobstructed abdominal bowel gas patter n. No evidence of intraperitoneal free air is seen. There are no abnormal abdominal calcifications. T here is a sacral spondylosis and scoliosis. Severe chronic deformity of the hips is unchanged. IMPRESSION: 1. No active disease in the chest. 2. An enteric tube is unchanged in position. 3. Nonobstructed abdominal bowel gas pattern. ACT 112: Negative or not required by law. Electronically signed by: Capo Haskins M.D. 06/14/2024 1:00 PM
[2024-06-15 06:37] LABS: Albumin Globulin Ratio 1.2 (0.9-2); Albumin Level 3.3 gm/dl (3.4-5.0); BUN Creatinine Ratio 29.6 (10-20); Bilirubin,Total 0.2 mg/dl (0.2-1.0); Calcium 8.8 mg/dl (8.6-10.3); Creatinine Clr Calc Pharmacy 161.6 ml/min; Est GFR (African American) 149.3 ml/min; Est GFR (Non-African American) 128.8 ml/min; Globulin 2.7 gm/dl (2.5-4.0); Magnesium 2.2 mg/dl (1.7-2.4); Potassium 4.5 mmol/L (3.5-5.1)
[2024-06-15 06:38] LABS: INR 0.9 (0.9-1.1); Prothrombin Time 9.8 Seconds (9.0-12.0)
--- NOTE | 2024-06-15 10:34 | Hospitalist Progress Note ---
Date of Service June 15, 2024 Assessment & Plan (1) Rhinovirus: (2) Dysphagia: (3) Cerebral palsy: (4) Hypertension: (5) Hypothyroidism (acquired): Plan 59-year-old female with past medical history of cerebral palsy living in [facility], dysphagia, hypothyroidism presents with worsening dysphagia with poor oral intake on and off for few weeks #Dysphagia Worsening over the last few weeks Dr. Piero Gimenez from GI saw the patient and is planning on doing an EGD tomorrow Speech therapy saw the patient and have recommended continuing pured diet Nursing assistance with feeding: This was discussed with nursing staff Patient is currently refusing to eat or take any medications by mouth intermittently Patient currently has an NG tube and receiving tube feeds Water flushes 100 mL every 6 hours via NG tube NG tube for tube feeds and medications NG tube feeds a Fiber[employer] HN with goal rate of 50 mL/h for dietitian recommendations Continue Protonix 40 mg IV twice daily Monitor renal function, electrolytes KUB did not show any evidence of obstruction Patient's was originally scheduled for EGD with PEG placement today which has been postponed by GI team to tomorrow #Cerebral palsy Depakote level elevated at 149 Patient is on Depakote 750 mg twice daily Depakote dose has been decreased to 625 mg p.o. twice daily: She has been switched to IV for now since she is not taking any oral medications Continue baclofen, Seroquel, Paxil, mirtazapine and hydroxyzine #Rhinovirus Chest x-ray did not show any evidence of infiltrates Droplet isolation precautions Continue Mucinex 400 mg 3 times daily as decongestant Supportive care #Hypothyroidism Continue levothyroxine 50 mcg daily # Elevated blood pressure Patient is not on any antihypertensives at home Blood pressure reading from this morning was an error per nursing staff I suspect blood pressure and heart rate go up when patient gets agitated Monitor vital signs for now CODE STATUS: Full code DVT prophylaxis: Heparin 5000 units subcutaneous twice daily Care plan discussed with nursing staff, speech therapy and mother Karie ([phone]) updated at bedside Admission and Anticipated Discharge Date Admission Date: June 11, 2024 Subjective Patient seen and examined Labs reviewed Radiology reviewed Mom and sister at bedside Patient responds yes and no to questions She is saying no to pain Appears comfortable No respiratory distress noted She was scheduled for EGD and PEG tube placement today which has been postponed until tomorrow by GI team Patient gets agitated easily and when she calms down her blood pressure improves and is normotensive at that time Review of Systems Review of Systems: As per HPI Physical Exam Physical Exam: General: No acute distress Psych: Awake HEENT: Anicteric sclera CVS: Regular rate and rhythm Lungs: Bilateral air entry, no wheezing noted Abdomen: Soft, nontender, no rebound, no guarding Ext: No edema noted, contractures noted Results & Data Results & Data Vital Signs (Past 12 Hours) Vital Signs Temp Pulse Pulse Resp BP Pulse Ox O2 Del Method 06/15/24 08:17 37.1 C 112 H 16 202/118 H 95 Room Air 06/15/24 08:00 156/81 H 06/15/24 07:21 103 H 06/15/24 03:28 36.8 C 102 H 18 150/76 H 94 Room Air 06/14/24 23:30 98 H 06/14/24 23:07 36.5 C 95 H 18 109/66 93 Room Air Laboratory Results Laboratory Results - last 24 hr 06/15/24 05:43 PT 9.8 INR 0.9 Sodium 136 Potassium 4.5 D Chloride 99 Carbon Dioxide 32 Anion Gap 5 BUN 8 Creatinine 0.27 L Est Cr Clr Drug Dosing 161.6 Est GFR ( Amer) 149.3 Est GFR (Non-Af Amer) 128.8 BUN/Creatinine Ratio 29.6 H Glucose 98 Calcium 8.8 Magnesium 2.2 Total Bilirubin 0.2 AST 19 ALT 11 Alkaline Phosphatase 83 Total Protein 6.0 Albumin 3.3 L Globulin 2.7 Albumin/Globulin Ratio 1.2 Diagnostic Findings Chest/Abdomen X-ray 06/14/24 11:45 PA CHEST WITH ABDOMINAL SERIES CLINICAL HISTORY: Abdominal distention. FINDINGS: A PA chest radiograph is compared to study dated 06/11/2024. The cardiomediastinal silhouette is unremarkable. Atelectasis is noted at the lung bases. The lungs and pleural spaces are otherwise clear. No pneumothorax is seen. The skeletal structures are osteopenic. The bony thorax is grossly intact. There is S-shaped thoracolumbar scoliosis. Supine and erect abdominal radiographs are compared to study dated 06/13/2024. Correlation is made to abdominal CT dated 06/03/2024. An enteric tube is unchanged in position. The tip projects over the gastric fundus. A catheter projects over the pelvis. There is a nonobstructed abdominal bowel gas pattern. No evidence of intraperitoneal free air is seen. There are no abnormal abdominal calcifications. There is a sacral spondylosis and scoliosis. Severe chronic deformity of the hips is unchanged. IMPRESSION: 1. No active disease in the chest. 2. An enteric tube is unchanged in position. 3. Nonobstructed abdominal bowel gas pattern. ACT 112: Negative or not required by law. Electronically signed by: Capo Haskins M.D. 06/14/2024 1:00 PM PG Care Time/CCT Total # of Minutes Spent Total Time Spent with Patient: Total time spent is greater than 50% in coordination of care (as documented) at patient's floor/unit and/or counseling patient: Coding Level of Care Code 95398 SUB INP/OBS CARE 2/35MIN Diagnoses Rhinovirus B34.8 Dysphagia R13.10 Cerebral palsy G80.9 Cerebral palsy type: unspecified type Hypertension I10 Hypothyroidism (acquired) E03.9 (3) Cerebral palsy Cerebral palsy type: unspecified type Qualified Code(s): G80.9 - Cerebral palsy, unspecified
--- NOTE | 2024-06-15 11:24 | Gastroenterology Progress Note ---
Date of Service June 15, 2024 Assessment & Plan (1) Decreased oral intake: Plan: 59 year old female with cerebral palsy, intellectual disability admitted w/ oropharyngeal dysphagia and Rhinovirus infection planned for EGD w/ PEG placement per family request. Procedure today postponed to allow additional day for respiratory status to improve. Tentative plan for EGD w/ PEG 06/16 pending her clinical status. We appreciate assistance in the management of any serological abnormality and corrections to include: hemoglobin >7, INR <2, platelets >50,000, potassium levels >3.5 but <5.3, and sodium levels within 5 points of the reference range prior to endoscopic evaluation. I spent a total of 30 minutes on the date of service in review of patient's record, and previously obtained information in person and appropriate medical visit, discussion and education of plan, with patient and/or caregiver, placing orders for tests/referral/procedures as medically necessary and documentation of pertinent clinical information in patient's medical records for their visit today. Admission and Anticipated Discharge Date Admission Date: June 11, 2024 Supervising Physician Co-Signing Physician Notes I examined the patient and reviewed patient's chart , laboratory data and imaging studies. I agree with with assessment and plan of care as suggested by advanced practice provider. Mother is agreeable to PEG tube placement. The procedure is tentatively scheduled for tomorrow depending on patient's respiratory status. Subjective Pt was seen and evaluated, chart reviewed. Was NPO for EGD w/ PEG this AM. Family and nursing from [facility] at bedside who notes she is not at her baseline and appears worse from a respiratory stand point today. Review of Systems Review of Systems: Unobtainable due to cognitive status Physical Exam Constitutional: WD/WN, vitals as above Respiratory: normal respiratory effort and + labored breathing Cardiovascular: Rate/Rhythm: regular rate and regular rhythm Gastrointestinal (Abdomen): normal bowel sounds, soft, nontender, no hepatosplenomegaly Skin: no rashes, warm and dry Results & Data Results & Data Vital Signs (Past 12 Hours) Vital Signs Temp Pulse Pulse Resp BP Pulse Ox O2 Del Method 06/15/24 08:17 37.1 C 112 H 16 202/118 H 95 Room Air 06/15/24 08:00 Room Air 06/15/24 08:00 156/81 H 06/15/24 07:21 103 H 06/15/24 03:28 36.8 C 102 H 18 150/76 H 94 Room Air 06/14/24 23:30 98 H Laboratory Results 06/15/24 Range/Units 05:43 PT 9.8 (9.0-12.0) Seconds INR 0.9 (0.9-1.1) Sodium 136 (136-145) mmol/L Potassium 4.5 D (3.5-5.1) mmol/L Chloride 99 (98-107) mmol/L Carbon Dioxide 32 (21-32) mmol/L Anion Gap 5 (3-11) BUN 8 (6-23) mg/dl Creatinine 0.27 L (0.6-1.2) mg/dl Est Cr Clr Drug Dosing 161.6 ml/min Est GFR ( Amer) 149.3 ml/min Est GFR (Non-Af Amer) 128.8 ml/min BUN/Creatinine Ratio 29.6 H (10-20) Glucose 98 (70-99(Fasting)) mg/dl Calcium 8.8 (8.6-10.3) mg/dl Magnesium 2.2 (1.7-2.4) mg/dl Total Bilirubin 0.2 (0.2-1.0) mg/dl AST 19 (13-39) U/L ALT 11 (7-52) U/L Alkaline Phosphatase 83 (34-104) U/L Total Protein 6.0 (6.0-8.3) gm/dl Albumin 3.3 L (3.4-5.0) gm/dl Globulin 2.7 (2.5-4.0) gm/dl Albumin/Globulin Ratio 1.2 (0.9-2) PG Care Time/CCT Total # of Minutes Spent Total Time Spent with Patient: Total time spent is greater than 50% in coordination of care (as documented) at patient's floor/unit and/or counseling patient: Coding Level of Care Code 40579 SUB INP/OBS CARE 25MIN Diagnoses Decreased oral intake R63.8
[2024-06-15] MEDS: KETOROLAC TROMETHAMINE 15 MG/ML VIAL IV ONE (17:15)
[2024-06-15] MEDS: LORazepam 2 MG/1 ML VIAL IV STA (17:15)
[2024-06-15] MEDS: ACETAMINOPHEN SUSP 1000 MG/31.2 ML UDP NG SCH (20:08)
--- NOTE | 2024-06-16 07:01 | XRay Report ---
XR chest 1V portable CLINICAL HISTORY: Dyspnea. COMPARISON STUDY: Chest radiograph June 14, 2024. FINDINGS: The tip of nasogastric tube is within the stomach. Levoscoliosis of the upper thoracic spin e is incidentally noted. There is no pneumothorax. Right basilar opacity favors atelectasis. There is no consolidation to suggest pneumonia. Cardiomediastinal silhouette is stable. No evidence for pulmo nary edema. Prominence of the pulmonary vasculature is unchanged. IMPRESSION: No acute cardiopulmonary findings. No change in appearance of the chest. ACT 112: Negative or not required by law. Electronically signed by: Jignesh Ibrahim M.D. 06/16/2024 7:00 AM
[2024-06-16] MEDS: CHLORHEXIDINE GLUCONATE 0.12% 480 ML MT SCH (08:20)
[2024-06-16 08:25] LABS: Anion Gap 7 (3-11); Carbon Dioxide 32 mmol/L (21-32); Chloride 102 mmol/L (98-107); Magnesium 2.3 mg/dl (1.7-2.4); Potassium 4.3 mmol/L (3.5-5.1); Sodium 141 mmol/L (136-145)
[2024-06-16 08:30] LABS: BUN Creatinine Ratio 38.5 (10-20); Blood Urea Nitrogen 10 mg/dl (6-23); Creatinine Clr Calc Pharmacy 167.1 ml/min; Est GFR (African American) > 150.0 ml/min; Est GFR (Non-African American) 130.5 ml/min; Glucose 112 mg/dl (70-99(Fasting))
--- NOTE | 2024-06-16 09:47 | Gastroenterology Progress Note ---
Date of Service June 16, 2024 Assessment & Plan (1) Decreased oral intake: Plan: 59 year old female with cerebral palsy, intellectual disability admitted w/ oropharyngeal dysphagia and Rhinovirus infection planned for EGD w/ PEG placement per family request. Procedure today postponed to allow additional day for respiratory status to improve. Tentative plan for EGD w/ PEG 06/16 pending her clinical status. This AM she is febrile at 38.4 now wearing 2L of O2. Will update hospitalist service. EGD w/ PEG deferred today as she is febrile. As the EGD w/ PEG is elective, will need medical optimization prior to endoscopy. Please keep NPO including tube feed at midnight and we can re-evaluate for candidacy 06/17. We appreciate assistance in the management of any serological abnormality and corrections to include: hemoglobin >7, INR <2, platelets >50,000, potassium levels >3.5 but <5.3, and sodium levels within 5 points of the reference range prior to endoscopic evaluation. I spent a total of 30 minutes on the date of service in review of patient's record, and previously obtained information in person and appropriate medical visit, discussion and education of plan, with patient and/or caregiver, placing orders for tests/referral/procedures as medically necessary and documentation of pertinent clinical information in patient's medical records for their visit today. Admission and Anticipated Discharge Date Admission Date: June 11, 2024 Supervising Physician Co-Signing Physician Notes I examined the patient and reviewed patient's chart , laboratory data and imaging studies. I agree with with assessment and plan of care as suggested by advanced practice provider. Discussed with Dr. Calle. Progressive obtundation likely related to urinary tract infection. For PEG tube placement tomorrow. Nurses from patient's facility in the room. They expressed concern about declining status. Subjective Pt was seen and evaluated, chart reviewed. This is febrile this AM, 38.4. She is on O2, 2L Family at bedside updated. Review of Systems Review of Systems: All other findings negative except as noted in HPI. Physical Exam Constitutional: WD/WN, vitals as above Respiratory: normal respiratory effort Cardiovascular: Rate/Rhythm: regular rate and regular rhythm Gastrointestinal (Abdomen): normal bowel sounds, soft, nontender, no hepatosplenomegaly Skin: no rashes, warm and dry Results & Data Results & Data Vital Signs (Past 12 Hours) Vital Signs Temp Pulse Pulse Resp BP BP Pulse Ox 06/16/24 07:45 38.4 C H 127 H 28 H 168/100 H 98 06/16/24 07:25 124 H 06/16/24 03:17 36.9 C 102 H 18 140/66 93 06/15/24 23:19 106 H 06/15/24 23:00 36.5 C 95 H 18 109/62 94 06/15/24 22:41 O2 Del Method O2 Flow Rate 06/16/24 07:45 Nasal Cannula 2 06/16/24 07:25 06/16/24 03:17 Room Air 06/15/24 23:19 06/15/24 23:00 Room Air 06/15/24 22:41 Room Air PG Care Time/CCT Total # of Minutes Spent Total Time Spent with Patient: Total time spent is greater than 50% in coordination of care (as documented) at patient's floor/unit and/or counseling patient: Coding Level of Care Code 41908 SUB INP/OBS CARE 1/25MIN Diagnoses Decreased oral intake R63.8
--- NOTE | 2024-06-16 10:08 | Palliative Care Consultation ---
Date of Consultation June 16, 2024 Assessment & Plan (1) Dyspnea and respiratory abnormalities: due to #2 Suggest escalating airway clearance techniques with vest and albuterol nebs (wear vest during neb sessions) (2) Dysphagia: likely due to progression/complication of cerebral palsy d/w Mom and caregivers who asked why she is aspirating and what causes it? Reviewed how Cerebral palsy can cause dysphagia and aspiration due to the brain injury that causes CP, and the motor control issues that impact swallowing - the brain injury that causes CP can impact the areas of the brain that control the digestive system, making it difficult to swallow. Motor control issues that impact all stages of swallowing, from forming a bolus to the pharynx and larynx. Spastic CP patients are especially vulnerable to dysphagia because spasticity can cause uncontrolled contractions of the esophagus. There is an inability to coordinate swallowing and breathing plus CP can impair the ability to plan and coordinate swallowing with breathing. There can be progressive weakness in swallowing muscles, leading to aspiration, as well as ineffective cough which impeded the ability to clear secretions from the respiratory tract. This is turn leads to lung injury, chronic inflammation, and increased morbidity and mortality. (3) Aspiration into lower respiratory tract: (4) Weakness generalized: (5) Advanced care planning/counseling discussion: A 30 min ACP meeting was held at bedside with pt, her mom, aunt and [address] [facility]. Her mom is noted to be anxious with the conversation we were having and repeatedly states "I came around to agreeing to the feeding tube because I want her to keep going." The progressive neurologic decline from CP can contribute to dysphagia, swallow impairments and aspiration as outlined in #2 Mom states Beulah has a lot of cornelio in her life and enjoys - has consistent caregivers and they bring her on outings as well as family gatherings. Beulah enjoys making art of her ipad, watching movies and taking day trips. Overall they feel she has QOL and the PEG will help continue that for her. They were not especially interested in any discussion around the pros and cons of PEG arden how it will not fully prevent aspiration. OP follow up offered and contact information provided. the caregivers from knew me from prior mutual patients and expressed appreciation for the discussion and will call prn. (6) Palliative care by specialist: Introduced Palliative Medicine and explained our role in patient's care. Patient and/or family were receptive to palliative services for goals of care discu ssions. Reviewed we are different from hospice, a home health nurse visiting service. (7) Cerebral palsy: Cerebral palsy type: unspecified type Qualified Code(s): G80.9 - Cerebral palsy, unspecified Plan As above. Pall Med was consulted to assist with GOC as documented above. Pt remains hi risk for aspiration and recurrent aspiration related resp failure, but her Mom was not ready to pursue discussion about potential complications and was not enthused about a follow up clinic visit for ongoing discussion and sx mgt. Her current fever, bronchitic cough and ineffective airway clearance remains concerning but CXR today did not show new disease. For now, I will sign off. I remain available for re-engagement as needed. Updated Dr Calle Thank you for allowing us to participate in the ongoing care of this patient. Please page with any additional concerns. Min Mckeon DNP Director, Palliative Medicine History of Present Illness Reason for Consultation: dysphagia, CP, mother is GINNYA Attending Physician: Chicho Calle MD History of Present Illness Beulah is a 59-year-old female with a history of cerebral palsy, intellectual disability who was admitted with progressive oropharyngeal dysphagia and found to have RSV positive. An EGD with PEG placement was planned per family request, however procedure had to be postponed due to progressive changes in her respiratory status. She is febrile with worsening respiratory dynamics. Chart review indicates that her dysphagia has been worsening over weeks. She has a chronic dysphagia that has been progressive over time and is well-known to our speech therapy department. For now they had recommended continuing her pured diet with assisted feeds. She is refusing to take anything by mouth at this junction. An NG tube was placed to assist with tube feedings and medication administrations. Patient has some ability to engage in discussions about her care and had expressed a desire not to have tubes placed however her parents, who retain power of civil attorney, further discussed with her and have pushed for feeding tube placement. [facility]ul[facility]. Her cerebral palsy is managed with Depakote which has been increased to 625 mg p.o. twice daily. She also remains on baclofen, Seroquel, Paxil, mirtazapine, hydroxyzine. Regarding her rhinovirus, the chest x-ray did not show any evidence of infiltrate. She remains on droplet isolate precautions. Mucous management with Mucinex 400 mg 3 times daily continues. Beulah is seen bedside with her Mom, aunt, and [address] [facility]. She is awake and alert to self, she is having some resp distress at time of my visit with inc effort and work of breathing,+diaphoresis audible respiration, gurgling and ?stridorous/higher pitched respirations. NGT in place Mom states she consented to PEG but that has been postponed due to pt fever today Allergies Allergy/AdvReac Type Severity Reaction Status Date / Time amoxicillin Allergy Unknown ON MED LIST Verified 04/21/24 17:32 clavulanic acid Allergy Unknown ON MED LIST Verified 04/21/24 17:32 Home Medications Medication Instructions Recorded Confirmed Type baclofen 10 mg tablet 5 mg PO TID 11/14/19 06/11/24 History baclofen 20 mg tablet 20 mg PO TID 11/14/19 06/11/24 History fexofenadine 180 mg tablet 180 mg PO QAM 11/14/19 06/11/24 History (Jayleen Allergy) fluticasone propionate 50 2 spray intranasal QAM 11/14/19 06/11/24 History mcg/actuation nasal spray,suspension ketoconazole 2 % topical cream 1 applic topical BID 11/14/19 06/11/24 History metronidazole 0.75 % topical cream 1 applic topical BID 11/14/19 06/11/24 History omeprazole 40 mg capsule,delayed 40 mg PO BID 11/14/19 06/11/24 History release paroxetine HCl 40 mg tablet 40 mg PO QAM 11/14/19 06/11/24 History quetiapine 200 mg tablet 200 mg PO HS 11/14/19 06/11/24 History quetiapine 25 mg tablet 12.5 mg PO .DAILY@1600 11/14/19 06/11/24 History paroxetine HCl 20 mg tablet 20 mg PO QAM 06/28/20 06/11/24 History estradiol 0.01% (0.1 mg/gram) 1 applic vaginal 2XWK 05/12/21 06/11/24 History vaginal cream mirtazapine 7.5 mg tablet 7.5 mg PO HS 05/12/21 06/11/24 History hydroxyzine HCl 25 mg tablet See Rx Instructions .Route .COMPLEX 05/17/21 06/11/24 History polyethylene glycol 3350 17 17 g PO QAM 10/09/22 06/11/24 History gram/dose oral powder (Miralax) chlorhexidine gluconate 0.12 % 1 applic PO 2XWK 05/21/23 06/11/24 History mouthwash carbamide peroxide 6.5 % ear drops 5 drp otic (ear) WK 06/11/24 06/11/24 History (Debrox) divalproex 125 mg tablet,delayed 750 mg PO BID 06/11/24 06/11/24 History release levothyroxine 75 mcg tablet 50 mcg PO DAILY 06/11/24 06/11/24 History starch (thickening) (Thick-It oral 0 ea PO DAILY 06/11/24 06/11/24 History powder) Patient History Medical History Cerebral palsy COVID-19 Vomiting and diarrhea History of kidney stones Refuses to eat Dehydration Abdominal pain Intractable vomiting Colitis Surgical History Hx of colonoscopy Surgical history unknown Family History Father Diabetes Other Asthma Cancer Hypertension No family history of adverse response to anesthesia No family history of bleeding disorder Social History Smoking Status: Never smoker Second Hand Exposure: No; Do You Dip or Chew Tobacco: No; Hx Alcohol Use: No Hx Substance Use: No Preferred Language: Urdu Communication Ability: Impaired Communication Ability Comment: mild intellectual Disability Case Preparer And Liner Required: No Beliefs That Will Affect Care: None Current Living Situation: Personal Care Facility Current Living Situation Comment: [facility] [facility] current occupational status: disabled Feels Safe at Home: Yes Diet: regular during the past year weight has: decreased > 10 lbs Assistive Devices: Hospital Bed, Mechanical Lift and Scooter/Electric Scooter Review of Systems Review of Systems: Unobtainable due to cognitive status Physical Exam Constitutional: + ill appearing, + physical limitations, + frail appearing, cooperative, + in distress and + diaphoretic Eyes: PERRL, conjunctivae normal, anicteric sclerae ENMT: Mouth: + audible dysphonia, + dentition abnormality and + small oral opening posterior pharyngeal secretions +NGT Neck: trachea midline and + anterior neck swelling (left base anteriorly; +anterior adenopathy) Respiratory: + respiratory distress, + uses accessory muscles, + cough (bronchitic, unable to clear) and symmetric chest movement; no stridor Cardiovascular: Rate/Rhythm: + tachycardic Gastrointestinal (Abdomen): normal bowel sounds, soft, nontender, no hepatosplenomegaly Musculoskeletal: contractures BUE, gen weakness Skin: flushed, diaphoretic Neurologic: alert to self, answers yes/no simple questions Results & Data Vital Signs (Past 12 Hours) Vital Signs Temp Pulse Pulse Resp BP BP Pulse Ox 06/16/24 07:45 38.4 C H 127 H 28 H 168/100 H 98 06/16/24 07:25 124 H 06/16/24 03:17 36.9 C 102 H 18 140/66 93 06/15/24 23:19 106 H 06/15/24 23:00 36.5 C 95 H 18 109/62 94 06/15/24 22:41 O2 Del Method O2 Flow Rate 06/16/24 07:45 Nasal Cannula 2 06/16/24 07:25 06/16/24 03:17 Room Air 06/15/24 23:19 06/15/24 23:00 Room Air 06/15/24 22:41 Room Air Laboratory Results Data reviewed, see HPI Diagnostic Findings Data reviewed see HPI PG Care Time/CCT Total # of Minutes Spent Total Time Spent with Patient: Total time spent is greater than 50% in coordination of care (as documented) at patient's floor/unit and/or counseling patient: I spent 90 minutes overall addressing this case: 15 min in medical data review/discussion with referring provider(s) and/or preparation for the visit 20 min in direct interaction with the patient/exam 30 min in Advance Care Planning/Goals of Care discussions as detailed above in note (must be >16min) 10 min in subsequent review and synthesis of assessment and plan 15 min communicating with other providers regarding the patient's case: nursing and primary team Advanced Care Planning 77603 Advanced Care Planning 30 [place] [address] IN/OBS CONSULT LVL 4,60M (25 - SIGNIFICANT, SEPARATELY IDENTIFIABLE ) Patient Type New Medical Decision Making High Complexity Diagnoses Dyspnea and respiratory abnormalities R06.00; R06.89 Dysphagia R13.10 Aspiration into lower respiratory tract T17.800A Weakness generalized R53.1 Advanced care planning/counseling discussion Z71.89 Palliative care by specialist Z51.5 Cerebral palsy G80.9 Cerebral palsy type: unspecified type Additional Codes Advanced Care Planning - 89152 Advanced Care Planning 30 Min: 85043 Advanced Care Planning 30 Min ([id number])
[2024-06-16] MEDS: KETOROLAC TROMETHAMINE 15 MG/ML VIAL IV ONE (11:55)
[2024-06-16] MEDS ORDERED: LEVALBUTEROL HCL 0.63 MG/3 ML NEB NEB PRN (12:20)
--- NOTE | 2024-06-16 12:20 | Hospitalist Progress Note ---
Date of Service June 16, 2024 Assessment & Plan (1) Rhinovirus: (2) Dysphagia: (3) Cerebral palsy: (4) Hypertension: (5) Hypothyroidism (acquired): Plan 59-year-old female with past medical history of cerebral [facility], dysphagia, hypothyroidism presents with worsening dysphagia with poor oral intake on and off for few weeks #Dysphagia Worsening over the last few weeks GI saw the patient and I postpone EGD for tomorrow due to patient's respiratory status today Speech therapy saw the patient and have recommended continuing pured diet Nursing assistance with feeding: This was discussed with nursing staff Patient is currently refusing to eat or take any medications by mouth intermittently Since EGD and PEG tube have been postponed and as discussed with GI hold tube feeds after midnight and n.p.o. after midnight for possible procedure tomorrow NG tube for tube feeds and medications NG tube feeds a [employer] HN with goal rate of 50 mL/h for dietitian recommendations Once NG tube have been held after midnight, start LR at 75 mL/h until procedure is done tomorrow Water flushes 125 mL every 6 hours via NG tube Continue Protonix 40 mg IV twice daily Monitor renal function, electrolytes Patient's was originally scheduled for EGD with PEG placement today which has been postponed by GI team to tomorrow #Fever Chest x-ray does not show any evidence of infection Unclear if this is secondary to rhinovirus Patient with increased work of breathing Trial of Xopenex nebs as needed Check urine analysis #Cerebral palsy Depakote level elevated at 149 Patient is on Depakote 750 mg twice daily Depakote dose has been decreased to 625 mg p.o. twice daily: She has been switched to IV for now since she is not taking any oral medications Continue baclofen, Seroquel, Paxil, mirtazapine and hydroxyzine Check repeat Depakote level in a.m. #Rhinovirus Chest x-ray did not show any evidence of infiltrates Droplet isolation precautions Continue Mucinex 400 mg 3 times daily as decongestant Supportive care #Hypothyroidism Continue levothyroxine 50 mcg daily # Elevated blood pressure Patient is not on any antihypertensives at home I suspect blood pressure and heart rate go up when patient gets agitated Blood pressure is under much better control and normotensive at this point Monitor vital signs for now CODE STATUS: Full code DVT prophylaxis: Heparin 5000 units subcutaneous twice daily Care plan discussed with nursing staff, GI team and mother Karie ([phone]) updated at bedside Admission and Anticipated Discharge Date Admission Date: June 11, 2024 Subjective Patient seen and examined Radiology reviewed Labs reviewed Mother and sister at bedside Patient has more gurgling sounds today and is now requiring 2 L of oxygen via nasal cannula She appears slightly lethargic compared to yesterday but still communicating with her family and caregiver who is also at the bedside Patient only answers with yes and no answers and answering yes to throat pain Patient had a fever overnight, chest x-ray did not show any evidence of infection. Urinalysis has been ordered: Discussed with nursing staff to send urine analysis Review of Systems Review of Systems: As per HPI Physical Exam Physical Exam: General: Noisy breathing, upper airway gurgling noted Psych: Awake HEENT: Anicteric sclera CVS: Regular rate and rhythm Lungs: Bilateral air entry with rhonchi, no wheezing noted Abdomen: Soft, nontender, no rebound, no guarding Ext: No edema noted, contractures noted : Camacho catheter with yellow urine Results & Data Results & Data Vital Signs (Past 12 Hours) Vital Signs Temp Pulse Pulse Resp BP BP Pulse Ox 06/16/24 11:58 37.1 C 105 H 24 134/91 95 06/16/24 07:45 38.4 C H 127 H 28 H 168/100 H 98 06/16/24 07:25 124 H 06/16/24 03:17 36.9 C 102 H 18 140/66 93 O2 Del Method O2 Flow Rate 06/16/24 11:58 Nasal Cannula 2 06/16/24 07:45 Nasal Cannula 2 06/16/24 07:25 06/16/24 03:17 Room Air Laboratory Results Laboratory Results - last 24 hr 06/16/24 07:18 Sodium 141 Potassium 4.3 Chloride 102 Carbon Dioxide 32 Anion Gap 7 BUN 10 Creatinine 0.26 L Est Cr Clr Drug Dosing 167.1 Est GFR ( Amer) > 150.0 Est GFR (Non-Af Amer) 130.5 BUN/Creatinine Ratio 38.5 H Glucose 112 H Calcium 9.0 Magnesium 2.3 Diagnostic Findings Chest X-Ray 06/16/24 05:32 XR chest 1V portable CLINICAL HISTORY: Dyspnea. COMPARISON STUDY: Chest radiograph June 14, 2024. FINDINGS: The tip of nasogastric tube is within the stomach. Levoscoliosis of the upper thoracic spine is incidentally noted. There is no pneumothorax. Right basilar opacity favors atelectasis. There is no consolidation to suggest pneumonia. Cardiomediastinal silhouette is stable. No evidence for pulmonary edema. Prominence of the pulmonary vasculature is unchanged. IMPRESSION: No acute cardiopulmonary findings. No change in appearance of the chest. ACT 112: Negative or not required by law. Electronically signed by: Jignesh Ibrahim M.D. 06/16/2024 7:00 AM PG Care Time/CCT Total # of Minutes Spent Total Time Spent with Patient: Total time spent is greater than 50% in coordination of care (as documented) at patient's floor/unit and/or counseling patient: Coding Level of Care Code 66323 SUB INP/OBS CARE 3/50MIN Diagnoses Rhinovirus B34.8 Dysphagia R13.10 Cerebral palsy G80.9 Cerebral palsy type: unspecified type Hypertension I10 Hypothyroidism (acquired) E03.9 (3) Cerebral palsy Cerebral palsy type: unspecified type Qualified Code(s): G80.9 - Cerebral palsy, unspecified
[2024-06-16] MEDS: LEVALBUTEROL HCL 0.63 MG/3 ML NEB NEB STA (13:28)
[2024-06-16 13:29] LABS: Appearance Urine Turbid (Clear); Bacteria Urine Automated 4+ (None Seen); Bilirubin Urine Negative (Negative); Blood Urine 3+ (Negative); Color Urine Dark Yellow; Epithelial Cell Urine Auto 0-2 /hpf (0-2); Glucose Urine UA Negative (Negative); Ketones Urine Trace (Negative); Leukocyte Esterase Urine 3+ (Negative); Nitrite Urine Positive (Negative); Protein Urine 2+ (Negative); RBC Urine Automated >20 /hpf (0-2); Specific Gravity Urine 1.029 (1.000-1.030); Urobilinogen Urine Negative (Negative); WBC Urine Automated >50 /hpf (0-5); pH Urine 6.5 (4.5-7.5)
[2024-06-16 13:30] LABS: Cast Urine Automated 0-2 /lpf (0-2)
[2024-06-16] MEDS: SODIUM CHLORIDE 0.9% 500 ML IV SCH (14:45)
[2024-06-16] MEDS: cefTRIAXone SODIUM 1,000 MG/50 ML BAG IV STA (16:33)
[2024-06-16] MEDS: FIBERSOURCE HN 1.2 CAL 1000 ML BAG NG SCH (16:38)
[2024-06-16] MEDS: LACTATED RINGER'S 500 ML IV ONE (18:44)
[2024-06-16] MEDS: TUBE FEEDING WATER FLUSH NG SCH (18:44)
--- NOTE | 2024-06-16 20:17 | CT Scan Report ---
Exam(s): CT CHEST Without Contrast EXAM: CT Chest Without Intravenous Contrast CLINICAL HISTORY: Reason for exam: FEVER, SOB, CXR NEGATIVE ?PNEUMONIA. TECHNIQUE: Axial computed tomography images of the chest without intravenous contrast. CTDI is 11.4 mGy and DLP is 329.4 mGy-cm. Automated exposure control was utilized for the study. A dose lowering technique was utilized adhering to the principles of ALARA. COMPARISON: Chest x-ray from June 16, 2024 FINDINGS: Lungs: Streaky infrahilar and bibasilar subsegmental atelectasis versus infiltrates. No mass. Pleural space: Unremarkable. No pneumothorax. No significant effusion. Heart: Mild coronary calcification. The heart is not enlarged. No significant pericardial effusion. Bones/joints: There is scoliosis of the thoracic spine with Choudhury angle measuring approximately 20. There is extensive multilevel osteophytosis. The lower thoracic spine appears to be ankylosed. No acute fracture. No dislocation. Soft tissues: Unremarkable. Vasculature: Unremarkable. No thoracic aortic aneurysm. Lymph nodes: Unremarkable. No enlarged lymph nodes. Tubes, lines and devices: There is an NG tube extending into the stomach. The esophagus is distended with gas and measures up to 3.5 cm in diameter. No hiatal hernia is seen. IMPRESSION: 1. Streaky infrahilar and bibasilar subsegmental atelectasis versus infiltrates, greatest in the medial right lower lobe. 2. There is an NG tube extending into the stomach. The esophagus is distended with gas and measures up to 3.5 cm in diameter. No hiatal hernia is seen. Electronically signed by: Josse Clinton MD 06/16/24 20:15 PM
[2024-06-16] MEDS: SODIUM CHLOR 7% 4 ML NEB NEB STA (20:27)
[2024-06-16] MEDS: LACTATED RINGER'S 1,000 ML IV SCH (23:59)
[2024-06-17 06:25] LABS: Basophils # (auto) 0.05 K/uL (0.00-0.20); Basophils % (auto) 0.3 %; Eosinophils # (auto) 0.12 K/uL (0.00-0.50); Eosinophils % (auto) 0.8 %; Hematocrit (blood only) 35.9 % (37.0-47.0); Hemoglobin 11.6 g/dl (12.0-16.0); Immature Granulocytes # (auto) 0.16 K/uL (0.01-0.20); Immature Granulocytes % (auto) 1.1 %; Lymphocytes # (auto) 2.79 K/uL (1.20-3.40); Lymphocytes % (auto) 18.6 %; Mean Corpuscular Hemoglobin 31.3 pg (25.0-34.0); Mean Corpuscular Hgb Conc 32.3 g/dL (32.0-36.0); Mean Corpuscular Volume 96.8 fL (80.0-100.0); Mean Platelet Volume 9.5 fL (9.4-12.4); Monocytes # (auto) 2.01 K/uL (0.11-0.59); Monocytes % (auto) 13.4 %; Neutrophils # (auto) 9.91 K/uL (1.40-6.50); Neutrophils % (auto) 65.8 %; Platelet Count 311 K/uL (130-400); RDW Coefficient of Variation 15.2 % (11.5-14.5); RDW Standard Deviation 53.4 fL (36.4-46.3); Red Blood Count 3.71 M/uL (4.20-5.40); White Blood Count 15.04 K/ul (4.8-10.8)
[2024-06-17] MEDS: LEVALBUTEROL HCL 0.63 MG/3 ML NEB NEB PRN (06:27)
[2024-06-17 06:50] LABS: Albumin Level 3.2 gm/dl (3.4-5.0); BUN Creatinine Ratio 34.5 (10-20); Bilirubin,Total 0.2 mg/dl (0.2-1.0); Calcium 9.1 mg/dl (8.6-10.3); Creatinine Clr Calc Pharmacy 155.7 ml/min; Est GFR (African American) 145.9 ml/min; Est GFR (Non-African American) 125.9 ml/min; Globulin 3.2 gm/dl (2.5-4.0); Magnesium 2.1 mg/dl (1.7-2.4); Potassium 5.2 mmol/L (3.5-5.1); Total Protein 6.4 gm/dl (6.0-8.3)
[2024-06-17] MEDS: cefTRIAXone SODIUM 1,000 MG/50 ML BAG IV SCH (09:03)
--- NOTE | 2024-06-17 09:18 | Gastroenterology Progress Note ---
Date of Service June 17, 2024 Assessment & Plan (1) Decreased oral intake: Plan: 59 year old female with cerebral palsy, intellectual disability admitted w/ oropharyngeal dysphagia and Rhinovirus infection, UTI planned for EGD w/ PEG placement per family request. EGD w/ PEG has been postponed x 2 due to ongoing need for supplemental O2 and fevers. Chest CT last evening concerning for PNA, distended esophagus. I discussed the case with my attending, hospitalist medicine and anesthesia. She is not optimized for elective EGD w/ PEG placements. I discussed with IR who is not able to provide PEG placement locally. Options would be transfer to a tertiary care facility for PEG placement. I spent a total of 30 minutes on the date of service in review of patient's record, and previously obtained information in person and appropriate medical visit, discussion and education of plan, with patient and/or caregiver, placing orders for tests/referral/procedures as medically necessary and documentation of pertinent clinical information in patient's medical records for their visit today. Admission and Anticipated Discharge Date Admission Date: June 11, 2024 Supervising Physician Co-Signing Physician Notes I reviewed patient's chart , laboratory data and imaging studies. I agree with with assessment and plan of care as suggested by advanced practice provider. PEG tube on hold due to pneumonia. Please call us if needed Subjective Pt was seen and evaluated, chart reviewed. Family and friends at bedside updated. They voice concerns about her clinical course during this admission. Advised I would update the hospitalist team. Discussed that I have asked anesthesia to review her case to. She was afebrile at my time of evaluation, however, now is febrile again. 3L oxymask Physical Exam 2 Constitutional: WD/WN, vitals as above Respiratory: + labored breathing Auscultation: + d iminished lung sounds Cardiovascular: Rate/Rhythm: + tachycardic Gastrointestinal (Abdomen): Inspection/Auscultation: normal bowel sounds Percussion/Palpation: + abdomen tender and abdomen soft; no guarding and abdomen not rigid Skin: no rashes, warm and dry Results & Data Results & Data Vital Signs (Past 12 Hours) Vital Signs Temp Pulse Pulse Resp BP Pulse Ox O2 Del Method 06/17/24 08:35 38.1 C H 129 H 28 H 143/105 H 94 Oxymask 06/17/24 06:27 127 H 18 97 Oxymask 06/17/24 06:23 127 H 18 97 Oxymask 06/17/24 03:53 36.8 C 113 H 18 132/86 100 Oxymask 06/16/24 22:45 36.6 C 106 H 16 103/58 L 92 Nasal Cannula 06/16/24 22:02 114 H 06/16/24 21:58 Nasal Cannula O2 Flow Rate 06/17/24 08:35 3 06/17/24 06:27 3 06/17/24 06:23 3 06/17/24 03:53 5 06/16/24 22:45 4 06/16/24 22:02 06/16/24 21:58 2 Laboratory Results 06/17/24 06/16/24 Range/Units 06:11 12:36 WBC 15.04 H (4.8-10.8) K/ul RBC 3.71 L (4.20-5.40) M/uL Hgb 11.6 L (12.0-16.0) g/dl Hct 35.9 L (37.0-47.0) % MCV 96.8 (80.0-100.0) fL MCH 31.3 (25.0-34.0) pg MCHC 32.3 (32.0-36.0) g/dL RDW Std Deviation 53.4 H (36.4-46.3) fL RDW Coeff of Christopher 15.2 H (11.5-14.5) % Plt Count 311 (130-400) K/uL MPV 9.5 (9.4-12.4) fL Immature Gran % (Auto) 1.1 % Neut % (Auto) 65.8 % Lymph % (Auto) 18.6 % Moca % (Auto) 13.4 % Eos % (Auto) 0.8 % Baso % (Auto) 0.3 % Neut # (Auto) 9.91 H (1.40-6.50) K/uL Lymph # (Auto) 2.79 (1.20-3.40) K/uL Moca # (Auto) 2.01 H (0.11-0.59) K/uL Eos # (Auto) 0.12 (0.00-0.50) K/uL Baso # (Auto) 0.05 (0.00-0.20) K/uL Immature Gran # (Auto) 0.16 (0.01-0.20) K/uL Sodium 141 (136-145) mmol/L Potassium 5.2 H D (3.5-5.1) mmol/L Chloride 101 (98-107) mmol/L Carbon Dioxide 35 H (21-32) mmol/L Anion Gap 5 (3-11) BUN 10 (6-23) mg/dl Creatinine 0.29 L (0.6-1.2) mg/dl Est Cr Clr Drug Dosing 155.7 ml/min Est GFR ( Amer) 145.9 ml/min Est GFR (Non-Af Amer) 125.9 ml/min BUN/Creatinine Ratio 34.5 H (10-20) Glucose 111 H (70-99(Fasting)) mg/dl Calcium 9.1 (8.6-10.3) mg/dl Magnesium 2.1 (1.7-2.4) mg/dl Total Bilirubin 0.2 (0.2-1.0) mg/dl AST 16 (13-39) U/L ALT 10 (7-52) U/L Alkaline Phosphatase 92 (34-104) U/L Total Protein 6.4 (6.0-8.3) gm/dl Albumin 3.2 L (3.4-5.0) gm/dl Globulin 3.2 (2.5-4.0) gm/dl Albumin/Globulin Ratio 1.0 (0.9-2) Urine Color Dark Yellow Urine Appearance Turbid A (Clear) Urine pH 6.5 (4.5-7.5) Ur Specific [place] 1.029 (1.000-1.030) Urine Protein 2+ H (Negative) Urine Glucose (UA) Negative (Negative) Urine Ketones Trace H (Negative) Urine Blood 3+ H (Negative) Urine Nitrite Positive A (Negative) Urine Bilirubin Negative (Negative) Urine Urobilinogen Negative (Negative) Ur Leukocyte Esterase 3+ H (Negative) Urine WBC (Auto) >50 H (0-5) /hpf Urine RBC (Auto) >20 H (0-2) /hpf U Hyaline Cast (Auto) 0-2 (0-2) /lpf U Epithel Cells (Auto) 0-2 (0-2) /hpf Urine Bacteria (Auto) 4+ H (None Seen) Valproic Acid 81 (50-100) mcg/ml PG Care Time/CCT Total # of Minutes Spent Total Time Spent with Patient: Total time spent is greater than 50% in coordination of care (as documented) at patient's floor/unit and/or counseling patient: Coding Level of Care Code 31275 SUB INP/OBS CARE 10/10MIN Diagnoses Decreased oral intake R63.8
[2024-06-17] MEDS: metroNIDAZOLE 500 MG/100 ML BAG IV SCH (11:17)
[2024-06-17] MEDS: INFLUENZA VACC TS2024-25(6m+)/PF (IIV3) 0.5mL Syr IM ONE (11:19)
--- NOTE | 2024-06-17 11:30 | Hospitalist Progress Note ---
Date of Service June 17, 2024 Assessment & Plan (1) Acute respiratory failure with hypoxia: Plan: 2nd to rhinovirus infection 2nd to likely aspiration pneumonia / superimposed bacterial pneumonia BNP is elevated although doesn't examine in volume overload but reasonable to give a dose of lasix to keep I/O balance net negative cont oxymask to maintain sats >90% cont abx, nebs, saline nebs, chest PT, etc. pulmonary consult by Dr Friend much appreciated (2) Rhinovirus: Plan: respiratory BioFire panel + for rhinovirus likely element of bronchitis from such remains on nebs and other supportive care measures cont droplet precautions (3) Aspiration pneumonia: Plan: CT chest 06/16 with b/l basilar infiltrates especially the RML this is likely bacterial pneumonia in the setting of rhinovirus very high suspicion for aspiration etiology in light of dysphagia, esophageal dilatation, altered MS, etc. she has fever today and worsening wbc count despite rocephin thus, stop rocephin change to cefepime IV + flagyl IV (has PCN allergy thus will not use zosyn) MRSA [employer] swab negative; defer on MRSA coverage cxr obtained today - worsening RML infiltrate (atelectasis/collapse noted) added xopenex/atrovent nebs q6h added saline nebs BID chest PT BID position the right side of her chest upward in bed discussed her case with Dr Friend from [facility] who will consult if she were to worsen she would need bronchoscopy high suspicion she has mucous plugs, food stuffs, etc in the right bronchial tree (4) Dysphagia: Plan: per report from the pt's mother/sister & workers from [facility] she has had worsening dysphagia with poor oral intake for several weeks prior to admission seen by speech therapy - pureed diet advised however, patient has been refusing PO intake thus, NG tube placed dietary recs for NG tube feeds -- [employer] HN, goal rate 50 mL/h I placed tube feedings on hold today due to her poor respiratory status Keep NPO re-eval tomorrow for safety of resuming tube feedings via NG of note -- pt's family concerned she may have had a stroke in the last few weeks leading to her altered MS, dysphagia, etc. we could do head CT, but she is not safe nor stable enough from respiratory standpoint to get MRI brain which would be a more helpful study could pursue this in a few days when respiratory status has improved (5) Cerebral palsy: Plan: lives at [facility] in [place] non-ambulatory cont chronic baclofen, remeron, seroquel, paxil, etc. (6) Hypothyroidism (acquired): Plan: TSH 6 in April 2024 consider recheck later in the admission and, if still high, consider modest dose increase for now leave synthroid as is (7) Esophageal dilatation: Plan: seen on CT chest yesterday etiology? achalasia? other? ultimately when she has her EGD for PEG placement they can take a look at the esophagus grossly barium swallow WON'T be possible as patient cannot stand cont PPI certainly this dilatation is a big risk factor for aspiration/dysphagia (8) Acute metabolic encephalopathy: Plan: 2nd to rhinovirus infection, superimposed bacterial pneumonia, etc. 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 vocal cord paralysis? other? Dr Friend to see CT soft tissue neck 06/03/24 without pathology of the upper airway except for dilated esophagus not sure she would tolerate a bedside laryngoscopy by ENT give supportive care & follow this for now (13) Urinary tract infection: Plan: 2nd to GNR rocephin, and now cefepime, should suffice follow cx Plan DVT prophylaxis: Heparin 5000 units subcutaneous twice daily Care plan discussed with nursing staff, GI team (Azucena Guardado), Pulmonary (Dr Friend), respiratory, and pt's mother Karie ([phone]) and sister Patient with worsening respiratory status and overall medical complexity will tx from med-tele to PCU highly complex care coordination today -- total time 90 minutes (multiple visits, multiple conversations with various team members as above, etc) Admission and Anticipated Discharge Date Admission Date: June 11, 2024 Subjective multiple visits to pt's bedside today first visit was this am pt's mother, sister, and a worker from [facility] were all present Beulah continues to have cough she also has a very audible stridor sound with breathing; pt's family have noted this for about 2 weeks prior to admission; this is not typical for her she has an audible wheeze as well has been very tired, but will wake up and answer basic questions c/o back pain intermittently pt's sister & mother express multiple concerns including - * overall status * overall pulmonary status * abdominal bloating/distension * recent issues with swallowing which is acute in their estimation GI saw patient this am the plan for PEG placement has been tabled for now due to her fever this am, poor pulmonary status, etc. Review of Systems Review of Systems: Unobtainable due to cognitive status Physical Exam Physical Exam: gen - awake but is sleepy; laying in bed at 30 degrees; looks sickly; coughing; audible stridor; audible rhonchi/wheezing (expiratory phase); dysmorphic in appearance neck - no JVD nose - NG tube in place; oxymask in place mouth - MM dry heart - tachy, s1 s2, no murmur lungs - inspiratory stridor; expiratory wheeze/rhonchi with very course BS all lung segments but worse on right; mild tachypnea; decreased BS right base abd - mildly distended, tympanic with percussion, no obvious tenderness, BS+, no bladder distension, no HSM ext - 1+ edema b/l, pulses 2+ b/l feet musculo - deformities of her feet/legs Results & Data Results & Data Vital Signs (Past 12 Hours) Vital Signs Temp Pulse Resp BP Pulse Ox O2 Del Method O2 Flow Rate 06/17/24 08:35 38.1 C H 129 H 28 H 143/105 H 94 Oxymask 3 06/17/24 06:27 127 H 18 97 Oxymask 3 06/17/24 06:23 127 H 18 97 Oxymask 3 06/17/24 03:53 36.8 C 113 H 18 132/86 100 Oxymask 5 Laboratory Results Laboratory Results - last 24 hr 06/17/24 06/17/24 06:11 14:39 WBC 15.04 H RBC 3.71 L Hgb 11.6 L Hct 35.9 L MCV 96.8 MCH 31.3 MCHC 32.3 RDW Std Deviation 53.4 H RDW Coeff of Christopher 15.2 H Plt Count 311 MPV 9.5 Immature Gran % (Auto) 1.1 Neut % (Auto) 65.8 Lymph % (Auto) 18.6 Glascock % (Auto) 13.4 Eos % (Auto) 0.8 Baso % (Auto) 0.3 Neut # (Auto) 9.91 H Lymph # (Auto) 2.79 Glascock # (Auto) 2.01 H Eos # (Auto) 0.12 Baso # (Auto) 0.05 Immature Gran # (Auto) 0.16 VBG pH 7.42 H VBG pCO2 57 H VBG pO2 53 VBG HCO3 37 VBG O2 Saturation 88.0 VBG Base Excess 10.3 Sodium 141 Potassium 5.2 H D 4.3 Chloride 101 Carbon Dioxide 35 H Anion Gap 5 BUN 10 Creatinine 0.29 L Est Cr Clr Drug Dosing 155.7 Est GFR ( Amer) 145.9 Est GFR (Non-Af Amer) 125.9 BUN/Creatinine Ratio 34.5 H Glucose 111 H Calcium 9.1 Magnesium 2.1 Total Bilirubin 0.2 AST 16 ALT 10 Alkaline Phosphatase 92 B-Natriuretic Peptide 457 H Total Protein 6.4 Albumin 3.2 L Globulin 3.2 Albumin/Globulin Ratio 1.0 Valproic Acid [address] 06/16/24 18:42 Exam(s): CT CHEST Without Contrast EXAM: CT Chest Without Intravenous Contrast CLINICAL HISTORY: Reason for exam: FEVER, SOB, CXR NEGATIVE ?PNEUMONIA. TECHNIQUE: Axial computed tomography images of the chest without intravenous contrast. CTDI is 11.4 mGy and DLP is 329.4 mGy-cm. Automated exposure control was utilized for the study. A dose lowering technique was utilized adhering to the principles of ALARA. COMPARISON: Chest x-ray from June 16, 2024 FINDINGS: Lungs: Streaky infrahilar and bibasilar subsegmental atelectasis versus infiltrates. No mass. Pleural space: Unremarkable. No pneumothorax. No significant effusion. Heart: Mild coronary calcification. The heart is not enlarged. No significant pericardial effusion. Bones/joints: There is scoliosis of the thoracic spine with Choudhury angle measuring approximately 20. There is extensive multilevel osteophytosis. The lower thoracic spine appears to be ankylosed. No acute fracture. No dislocation. Soft tissues: Unremarkable. Vasculature: Unremarkable. No thoracic aortic aneurysm. Lymph nodes: Unremarkable. No enlarged lymph nodes. Tubes, lines and devices: There is an NG tube extending into the stomach. The esophagus is distended with gas and measures up to 3.5 cm in diameter. No hiatal hernia is seen. IMPRESSION: 1. Streaky infrahilar and bibasilar subsegmental atelectasis versus infiltrates, greatest in the medial right lower lobe. 2. There is an NG tube extending into the stomach. The esophagus is distended with gas and measures up to 3.5 cm in diameter. No hiatal hernia is seen. Electronically signed by: Josse Clinton MD 06/16/24 20:15 PM Chest X-Ray 06/17/24 11:29 SINGLE VIEW CHEST CLINICAL HISTORY: Aspiration. FINDINGS: An AP, portable, upright chest radiograph is compared to chest x-ray and chest CT dated 06/16/2024. The examination is degraded by portable technique and patient rotation. An enteric tube is unchanged in position. The esophagus is distended and filled with air. The cardiomediastinal silhouette is unremarkable. Dependent airspace opacities likely represent scarring/atelectasis. Atelectasis of the right middle lobe similar to previous. No large pleural effusion or pneumothorax is seen. The skeletal structures are osteopenic. The bony thorax is grossly intact. IMPRESSION: 1. Complete atelectasis of the right middle lobe is again noted. 2. Dependent airspace opacities likely represent scarring/atelectasis. Correlate clinically. 3. An enteric tube is unchanged in position.. ACT 112: Negative or not required by law. Electronically signed by: Capo Haskins M.D. 06/17/2024 12:46 PM KUB X-Ray 06/17/24 11:29 KUB CLINICAL HISTORY: distension; ?ileus? COMPARISON STUDY: CT of the abdomen and pelvis June 03, 2024. Abdominal series June 13, 2024. FINDINGS: Tip of nasogastric tube is within the gastric fundus. The bowel gas pattern is within normal limits. Chronic deformities of the the pelvis and hips are incidentally noted. IMPRESSION: Normal bowel gas pattern. No evidence for a bowel obstruction. ACT 112: Negative or not required by law. Electronically signed by: Jignesh Ibrahim M.D. 06/17/2024 1:34 PM PG Care Time/CCT Total # of Minutes Spent Total Time Spent with Patient: Total time spent is greater than 50% in coordination of care (as documented) at patient's floor/unit and/or counseling patient: Prolonged Care Time Prolonged Care Time: Yes Total Prolonged Care Time: 90 Coding Level of Care Code 79654 SUB INP/OBS CARE 3/50MIN (25 - SIGNIFICANT, SEPARATELY IDENTIFIABLE ) Diagnoses Acute respiratory failure with hypoxia J96.01 Rhinovirus B34.8 Aspiration pneumonia J69.0 Aspiration pneumonia type: unspecified Laterality: right Lung location: unspecified part of lung Dysphagia R13.10 Cerebral palsy G80.9 Cerebral palsy type: unspecified type Hypothyroidism (acquired) E03.9 Esophageal dilatation K22.89 Acute metabolic encephalopathy G93.41 Abdominal distension R14.0 GERD (gastroesophageal reflux disease) K21.9 Valproic acid toxicity T42.6X1A Stridor R06.1 Urinary tract infection N30.00 Hematuria presence: without hematuria Urinary tract infection type: acute cystitis Additional Codes Prolonged Care Time - Prolonged Care Time: Yes ([id number]) (3) Aspiration pneumonia Aspiration pneumonia type: unspecified Laterality: right Lung location: uns pecified part of lung Qualified Code(s): J69.0 - Pneumonitis due to inhalation of food and vomit (5) Cerebral palsy Cerebral palsy type: unspecified type Qualified Code(s): G80.9 - Cerebral palsy, unspecified (13) Urinary tract infection Hematuria presence: without hematuria Urinary tract infection type: acute cystitis Qualified Code(s): N30.00 - Acute cystitis without hematuria
[2024-06-17] MEDS: LEVALBUTEROL HCL 0.63 MG/3 ML NEB NEB SCH (11:42)
[2024-06-17] MEDS: IPRATROPIUM BROMIDE NEB SOLN 0.02% 0.5MG/2.5ML VIAL NEB SCH (11:42)
[2024-06-17] MEDS: SODIUM CHLOR 7% 4 ML NEB NEB SCH (11:56)
[2024-06-17] MEDS: SODIUM CHLOR 7% 4 ML NEB ONE (11:56)
--- NOTE | 2024-06-17 12:47 | XRay Report ---
SINGLE VIEW CHEST CLINICAL HISTORY: Aspiration. FINDINGS: An AP, portable, upright chest radiograph is compared to chest x-ray and chest CT dated 06/16/2024. The examination is degraded by portable technique and patient rotation. An enteric tube is un changed in position. The esophagus is distended and filled with air. The cardiomediastinal silhouette is unremarkable. Dependent airspace opacities likely represent scarring/atelectasis. Atelectasis of the right middle lobe similar to previous. No large pleural effusion or pneumothorax is seen. The ske letal structures are osteopenic. The bony thorax is grossly intact. IMPRESSION: 1. Complete atelectasis of the right middle lobe is again noted. 2. Dependent airspace opacities likely represent scarring/atelectasis. Correlate clinically. 3. An enteric tube is unchanged in position.. ACT 112: Negative or not required by law. Electronically signed by: Capo Haskins M.D. 06/17/2024 12:46 PM
--- NOTE | 2024-06-17 13:36 | XRay Report ---
KUB CLINICAL HISTORY: distension; ?ileus? COMPARISON STUDY: CT of the abdomen and pelvis June 03, 2024. Abdominal series June 13. FINDINGS: Tip of nasogastric tube is within the gastric fundus. The bowel gas pattern is within tamera l limits. Chronic deformities of the the pelvis and hips are incidentally noted. IMPRESSION: Normal bowel gas pattern. No evidence for a bowel obstruction. ACT 112: Negative or not required by law. Electronically signed by: Jignesh Ibrahim M.D. 06/17/2024 1:34 PM
[2024-06-17] MEDS: CEFEPIME 2,000 MG in SYRINGE 0 ML IV SCH (14:52)
[2024-06-17 15:06] LABS: Base Excess VBG 10.3 mEq/L; HCO3 VBG 37 mmol/L; PCO2 VBG 57 mmHg (38-50); PO2 VBG 53 mmHg; pH VBG 7.42 (7.36-7.41)
--- NOTE | 2024-06-17 16:40 | Pulmonary Consultation ---
Date of Consultation June 17, 2024 Assessment & Plan (1) Rhinovirus: (2) Multifocal pneumonia: (3) Cerebral palsy: Cerebral palsy type: unspecified type Qualified Code(s): G80.9 - Cerebral palsy, unspecified (4) Aspiration pneumonia: Aspiration pneumonia type: unspecified Laterality: right Lung location: unspecified part of lung Qualified Code(s): J69.0 - Pneumonitis due to inhalation of food and vomit (5) Abnormal chest CT: (6) Acute respiratory failure with hypoxia: Plan CT chest 06/16/2024 personally reviewed: Collapse of the right middle lobe Consolidative changes appreciated in the right lower lobe as well as left lower lobe Significantly dilated esophagus No significant mediastinal lymphadenopathy -- Multilobar pneumonia Respiratory bio fire was positive for entero-/rhinovirus, negative for everything else Nasal MRSA negative BNP 457 -- Atelectasis/collapse of the right middle lobe Add CoughAssist to the patient's regimen --Stridor No clear abnormality appreciated on the CT chest at least till the glottis and subglottic Patient does seem to have significant phlegm and she is not able to clear it Will try the above measures along with naso- pharyngeal suctioning Plan: Continue with 7% hypertonic saline, continue with nebulizers Mucinex through NG tube and CoughAssist has been added Hopefully this will have some improvement in patient's secretions If there is any worsening then patient will likely need to be intubated and at that time bronchoscopy could be considered Plan was discussed with primary team Please note the above document was generated using voice recognition software. It may contain grammatical, syntax or spelling errors.Any formal questions or concerns about the content, text or information contained within the body of this dictation should be directly addressed to the provider for clarification. History of Present Illness Attending Physician: Dayron Chatman MD History of Present Illness 59-year-old female presented to the hospital for difficulty swallowing Past medical history: Cerebral palsy, dysphagia, GERD, hypothyroidism Pulmonary consulted for At the time of examination patient's mother and sister were in the room History was obtained from the Patient had an NG tube placed in. She was breathing with possible stridor. Did use accessory muscles but she was not tachypneic Afebrile As per the family patient has been having issues with coughing whenever she eats or drinks since the end of March No dysuria, no diarrhea Social history: Lifetime non-smoker Allergies Allergy/AdvReac Type Severity Reaction Status Date / Time amoxicillin Allergy Unknown ON MED LIST Verified 04/21/24 17:32 clavulanic acid Allergy Unknown ON MED LIST Verified 04/21/24 17:32 Home Medications Medication Instructions Recorded Confirmed Type baclofen 10 mg tablet 5 mg PO TID 11/14/19 06/11/24 History baclofen 20 mg tablet 20 mg PO TID 11/14/19 06/11/24 History fexofenadine 180 mg tablet 180 mg PO QAM 11/14/19 06/11/24 History (Jayleen Allergy) fluticasone propionate 50 2 spray intranasal QAM 11/14/19 06/11/24 History mcg/actuation nasal spray,suspension ketoconazole 2 % topical cream 1 applic topical BID 11/14/19 06/11/24 History metronidazole 0.75 % topical cream 1 applic topical BID 11/14/19 06/11/24 History omeprazole 40 mg capsule,delayed 40 mg PO BID 11/14/19 06/11/24 History release paroxetine HCl 40 mg tablet 40 mg PO QAM 11/14/19 06/11/24 History quetiapine 200 mg tablet 200 mg PO HS 11/14/19 06/11/24 History quetiapine 25 mg tablet 12.5 mg PO .DAILY@1600 11/14/19 06/11/24 History paroxetine HCl 20 mg tablet 20 mg PO QAM 06/28/20 06/11/24 History estradiol 0.01% (0.1 mg/gram) 1 applic vaginal 2XWK 05/12/21 06/11/24 History vaginal cream mirtazapine 7.5 mg tablet 7.5 mg PO HS 05/12/21 06/11/24 History hydroxyzine HCl 25 mg tablet See Rx Instructions .Route .COMPLEX 05/17/21 06/11/24 History polyethylene glycol 3350 17 17 g PO QAM 10/09/22 06/11/24 History gram/dose oral powder (Miralax) chlorhexidine gluconate 0.12 % 1 applic PO 2XWK 05/21/23 06/11/24 History mouthwash carbamide peroxide 6.5 % ear drops 5 drp otic (ear) WK 06/11/24 06/11/24 History (Debrox) divalproex 125 mg tablet,delayed 750 mg PO BID 06/11/24 06/11/24 History release levothyroxine 75 mcg tablet 50 mcg PO DAILY 06/11/24 06/11/24 History starch (thickening) (Thick-It oral 0 ea PO DAILY 06/11/24 06/11/24 History powder) Patient History Medical History Cerebral palsy COVID-19 Vomiting and diarrhea History of kidney stones Refuses to eat Dehydration Abdominal pain Intractable vomiting Colitis Surgical History Hx of colonoscopy Surgical history unknown Family History Father Diabetes Other Asthma Cancer Hypertension No family history of adverse response to anesthesia No family history of bleeding disorder Social History Smoking Status: Never smoker Second Hand Exposure: No; Do You Dip or Chew Tobacco: No; Hx Alcohol Use: No Hx Substance Use: No Preferred Language: German Communication Ability: Impaired Communication Ability Comment: mild intellectual Disability Qualitative Field Project Manager Required: No Beliefs That Will Affect Care: None Current Living Situation: Personal Care Facility Current Living Situation Comment: [facility] current occupational status: disabled Feels Safe at Home: Yes Diet: regular during the past year weight has: decreased > 10 lbs Assistive Devices: Hospital Bed, Mechanical Lift and Scooter/Electric Scooter Review of Systems 2 Review of Systems: All systems reviewed & are unremarkable except as noted in HPI & below Physical Exam 2 Physical Exam: Constitutional: No acute distress HEENT: EOMI, PERRLA, positive stridor Respiratory system: Decreased air entry bilaterally, positive rhonchi, positive mild expiratory wheeze, positive crackles bilaterally CVS: S1-S2 positive, no murmurs or gallops Abdomen: Soft, nontender, nondistended, positive bowel sounds x4 Extremities: +2 pulses bilaterally radialis/ dorsalis pedis, no cyanosis, minimal pitting edema bilateral lower extremity Neuro: Somnolent Psych: Unable to assess G/U: Positive Camacho Skin: no rashes, warm and dry Lymphatic: no cervical or axillary lymphadenopathy Results & Data Results & Data Vital Signs (Past 12 Hours) Vital Signs Temp Pulse Resp BP Pulse Ox O2 Del Method O2 Flow Rate 06/17/24 15:39 104 H 20 98 Oxymask 3 06/17/24 12:03 37.4 C 102 H 16 108/69 98 Oxymask 3 06/17/24 11:56 100 H 18 94 Oxymask 3 06/17/24 11:46 Oxymask 5 06/17/24 11:42 100 H 20 95 Oxymask 3 06/17/24 08:35 38.1 C H 129 H 28 H 143/105 H 94 Oxymask 3 06/17/24 06:27 127 H 18 97 Oxymask 3 06/17/24 06:23 127 H 18 97 Oxymask 3 Laboratory Results 06/17/24 06:11 06/17/24 14:39 PG Care Time/CCT Total # of Minutes Spent Total Time Spent with Patient: Total time spent is greater than 50% in coordination of care (as documented) at patient's floor/unit and/or counseling patient: Coding Level of Care Code 82636 INT INP/OBS CARE 75MIN Diagnoses Rhinovirus B34.8 Multifocal pneumonia J18.9 Cerebral palsy G80.9 Cerebral palsy type: unspecified type Aspiration pneumonia J69.0 Aspiration pneumonia type: unspecified Laterality: right Lung location: unspecified part of lung Abnormal chest CT R93.89 Acute respiratory failure with hypoxia J96.01
[2024-06-17] MEDS: ACETYLCYSTEINE 20% INHAL SOLN 4ML ***DISPENSED BY RESP. INH SCH (20:09)
[2024-06-17] MEDS: FUROSEMIDE 40 MG TAB PO ONE (21:34)
[2024-06-18 02:49] LABS: Base Excess ABG 8.8 mEq/L (-9-1.8); HCO3 ABG 35 mmol/L (19-24); PCO2 ABG 51 mmHg (35-46); PO2 ABG 101 mmHg (80-95); pH ABG 7.44 (7.35-7.45)
[2024-06-18 03:06] LABS: Allen Test Pos (Pos)
[2024-06-18 06:19] LABS: Hemoglobin 10.1 g/dl (12.0-16.0); Mean Corpuscular Hemoglobin 31.6 pg (25.0-34.0); Mean Corpuscular Hgb Conc 33.7 g/dL (32.0-36.0); Mean Corpuscular Volume 93.8 fL (80.0-100.0); Mean Platelet Volume 9.7 fL (9.4-12.4); Platelet Count 295 K/uL (130-400); RDW Coefficient of Variation 15.1 % (11.5-14.5); White Blood Count 10.53 K/ul (4.8-10.8)
[2024-06-18 06:34] LABS: BUN Creatinine Ratio 24.1 (10-20); Calcium 8.2 mg/dl (8.6-10.3); Creatinine Clr Calc Pharmacy 155.7 ml/min; Potassium 3.5 mmol/L (3.5-5.1)
--- NOTE | 2024-06-18 07:20 | XRay Report ---
XR chest 1V portable HISTORY: 59 years-old Female f/u acute shortness of breath COMPARISON: Chest CT 06/16/2024, chest CT June 17, 2024 TECHNIQUE: AP view of the chest FINDINGS: Enteric tube is present with distal tip within the gastric body. Limited exam secondary to positionin g. Patulous dilation of the esophagus redemonstrated. Central bronchial wall thickening without pneum othorax. Pulmonary vascular congestion with subsegmental bibasilar densities and trace pleural effusi ons again noted. There is unchanged right hemidiaphragmatic elevation. The bones appear intact. IMPRESSION: 1. Cardiomegaly with pulmonary vascular congestion and trace pleural effusions. 2. Mild bibasilar atelectasis. 3. Patulous dilation of the esophagus redemonstrated. ACT 112: Negative or not required by law. The above report was generated using voice recognition software. It may contain grammatical, syntax o r spelling errors. Electronically signed by: Eduin Wick M.D. 06/18/2024 7:18 AM
--- NOTE | 2024-06-18 07:39 | XRay Report ---
SINGLE VIEW CHEST CLINICAL HISTORY: Hypoxia. FINDINGS: An AP, portable, upright chest radiograph is compared to chest x-ray gated 06/17/2024 and co rrelated with chest CT dated 06/16/2024. The examination is degraded by portable technique and patient rotation. An enteric tube is unchanged in position. The esophagus is distended and filled with air. The cardiomediastinal silhouette is unremarkable. Dependent airspace opacities likely represent scarr ing/atelectasis. Atelectasis of the right middle lobe similar to previous. No large pleural effusion or pneumothorax is seen. The skeletal structures are osteopenic. The bony thorax is grossly intact. IMPRESSION: 1. Complete atelectasis of the right middle lobe is again noted. 2. Dependent airspace opacities likely represent scarring/atelectasis. Correlate clinically. 3. An enteric tube is unchanged in position.. ACT 112: Negative or not required by law. Electronically signed by: Capo Haskins M.D. 06/18/2024 7:37 AM
--- NOTE | 2024-06-18 08:53 | Pulmonology Progress Note ---
Date of Service June 18, 2024 Assessment & Plan (1) Rhinovirus: (2) Multifocal pneumonia: (3) Cerebral palsy: Cerebral palsy type: unspecified type Qualified Code(s): G80.9 - Cerebral palsy, unspecified (4) Aspiration pneumonia: Aspiration pneumonia type: unspecified Laterality: right Lung location: unspecified part of lung Qualified Code(s): J69.0 - Pneumonitis due to inhalation of food and vomit (5) Abnormal chest CT: (6) Acute respiratory failure with hypoxia: Plan CT chest 06/16/2024 personally reviewed: Collapse of the right middle lobe Consolidative changes appreciated in the right lower lobe as well as left lower lobe Significantly dilated esophagus No significant mediastinal lymphadenopathy -- Multilobar pneumonia Respiratory bio fire was positive for entero-/rhinovirus, negative for everything else Nasal MRSA negative, procalcitonin 26.2 BNP 457 -- Atelectasis/collapse of the right middle lobe Add CoughAssist to the patient's regimen --Stridor No clear abnormality appreciated on the CT chest at least till the glottis and subglottic Patient does seem to have significant phlegm and she is not able to clear it Will try the above measures along with naso- pharyngeal suctioning Plan: Chest x-ray from today shows improvement compared to yesterday, there still seems to be atelectasis of the right middle lobe Will give another dose of Lasix today Continue with 7% hypertonic saline, continue with nebulizers Continue with Mucinex through NG tube and CoughAssist has been added If there is any worsening then patient will likely need to be intubated and at that time bronchoscopy could be considered Plan was discussed with primary team Please note the above document was generated using voice recognition software. It may contain grammatical, syntax or spelling errors.Any formal questions or concerns about the content, text or information contained within the body of this dictation should be directly addressed to the provider for clarification. Admission and Anticipated Discharge Date Admission Date: June 11, 2024 Subjective Patient seen and examined at bedside. Patient's family was in the room She was on oxy mask 2-3 L saturating 94-95% Not any respiratory distress No audible stridor. She was still getting tube feeds. Patient's family was in the room Tmax 38.1 Review of Systems 2 Review of Systems: All systems reviewed & are unremarkable except as noted in Subjective Physical Exam 2 Physical Exam: Constitutional: No acute distress HEENT: EOMI, PERRLA, no stridor Respiratory system: Decreased air entry bilaterally, positive rhonchi, positive mild expiratory wheeze, positive crackles bilaterally CVS: S1-S2 positive, no murmurs or gallops Abdomen: Soft, nontender, nondistended, positive bowel sounds x4 Extremities: +2 pulses bilaterally radialis/ dorsalis pedis, no cyanosis, minimal pitting edema bilateral lower ankles Neuro: Somnolent, more alert than yesterday Psych: Unable to assess G/U: Positive Camacho Musculoskeletal: Contracted upper and lower extremities Skin: no rashes, warm and dry Lymphatic: no cervical or axillary lymphadenopathy Results & Data Results & Data Vital Signs (Past 12 Hours) Vital Signs Temp Pulse Pulse Resp BP BP Pulse Ox 06/18/24 07:28 102 H 20 96 06/18/24 03:43 37.2 C 108 H 20 100/65 97 06/18/24 02:15 84 L 06/18/24 02:15 06/18/24 01:40 06/18/24 01:30 84 L 06/18/24 01:30 06/17/24 23:35 36.6 C 109 H 20 118/82 94 06/17/24 21:51 118 H 06/17/24 21:37 113/72 O2 Del Method O2 Flow Rate 06/18/24 07:28 Oxymask 2 06/18/24 03:43 Oxymask 2 06/18/24 02:15 Oxymask 6 06/18/24 02:15 Oxymask 6 06/18/24 01:40 Oxymask 3 06/18/24 01:30 Oxymask 5 06/18/24 01:30 Oxymask 5 06/17/24 23:35 Oxymask 06/17/24 21:51 06/17/24 21:37 Laboratory Results 06/18/24 05:47 06/18/24 05:47 PG Care Time/CCT Total # of Minutes Spent Total Time Spent with Patient: Total time spent is greater than 50% in coordination of care (as documented) at patient's floor/unit and/or counseling patient: Coding Level of Care Code 49316 SUB INP/OBS CARE 3/50MIN Diagnoses Rhinovirus B34.8 Multifocal pneumonia J18.9 Cerebral palsy G80.9 Cerebral palsy type: unspecified type Aspiration pneumonia J69.0 Aspiration pneumonia type: unspecified Laterality: right Lung location: unspecified part of lung Abnormal chest CT R93.89 Acute respiratory failure with hypoxia J96.01
[2024-06-18] MEDS: FUROSEMIDE INJ 20 MG/2 ML VIAL IV ONE (09:08)
[2024-06-18] MEDS: CEFEPIME 2000MG 2,000 MG/20 ML SYR IV SCH (15:29)
--- NOTE | 2024-06-18 18:40 | Hospitalist Progress Note ---
Date of Service June 18, 2024 Assessment & Plan (1) Acute respiratory failure with hypoxia: Plan: 2nd to rhinovirus infection 2nd to likely aspiration pneumonia / superimposed bacterial pneumonia BNP is elevated although doesn't examine in volume overload but reasonable to give a dose of lasix to keep I/O balance net negative cont oxymask to maintain sats >90% cont abx, nebs, saline nebs, chest PT, etc. pulmonary consult by Dr Friend much appreciated. Dose of lasix on 06/18 closely montor Is and OS. Placed spaulding on 06/18 O2 sat improved, now on 2 liters. (2) Rhinovirus: Plan: respiratory BioFire panel + for rhinovirus likely element of bronchitis from such remains on nebs and other supportive care measures cont droplet precautions (3) Aspiration pneumonia: Plan: CT chest 06/16 with b/l basilar infiltrates especially the RML this is likely bacterial pneumonia in the setting of rhinovirus very high suspicion for aspiration etiology in light of dysphagia, esophageal dilatation, altered MS, etc. she has fever today and worsening wbc count despite rocephin thus, stop rocephin change to cefepime IV + flagyl IV (has PCN allergy thus will not use zosyn) MRSA [employer] swab negative; defer on MRSA coverage cxr obtained today - worsening RML infiltrate (atelectasis/collapse noted) added xopenex/atrovent nebs q6h added saline nebs BID chest PT BID position the right side of her chest upward in bed discussed her case with Dr Friend from [facility] who will consult if she were to worsen she would need bronchoscopy high suspicion she has mucous plugs, food stuffs, etc in the right bronchial tree (4) Dysphagia: Plan: per report from the pt's mother/sister & workers from [employer] she has had worsening dysphagia with poor oral intake for several weeks prior to admission seen by speech therapy - pureed diet advised however, patient has been refusing PO intake thus, NG tube placed dietary recs for NG tube feeds -- [employer] HN, goal rate 50 mL/h I placed tube feedings on hold today due to her poor respiratory status Keep NPO re-eval tomorrow for safety of resuming tube feedings via NG of note -- pt's family concerned she may have had a stroke in the last few weeks leading to her altered MS, dysphagia, etc. we could do head CT, but she is not safe nor stable enough from respiratory standpoint to get MRI brain which would be a more helpful study could pursue this in a few days when respiratory status has improved (5) Cerebral palsy: Plan: lives at [facility] in [place] non-ambulatory cont chronic baclofen, remeron, seroquel, paxil, etc. (6) Hypothyroidism (acquired): Plan: TSH 6 in April 2024 consider recheck later in the admission and, if still high, consider modest dose increase for now leave synthroid as is (7) Esophageal dilatation: Plan: seen on CT chest yesterday etiology? achalasia? other? ultimately when she has her EGD for PEG placement they can take a look at the esophagus grossly barium swallow WON'T be possible as patient cannot stand cont PPI certainly this dilatation is a big risk factor for aspiration/dysphagia (8) Acute metabolic encephalopathy: Plan: 2nd to rhinovirus infection, superimposed bacterial pneumonia, etc. toxic effects from depakote also likely mentation improved but certainly not at baseline (9) Abdominal distension: Plan: CT a/p in April and then again in May with moderate constipation no other pathology seen KUB obtained today - mild stool, no impaction; perhaps mild gaseous distension (my reading) she is passing stools despite the distension she has an NG tube in place to gravity tube feeds are on hold if distension worsens can place NG tube to wall suction just observe for now (10) GERD (gastroesophageal reflux disease): Plan: cont PPI IV (11) Valproic acid toxicity: Plan: initial level was 149 on a daily depakote dose of 750mg BID I do not know if this was truly a steady state level [id number] it is very high depakote dose reduced to 312mg q6h IV by prior attending perhaps tomorrow can shift IV depakote to PO depakote 600mg BID level this am - 81 (12) Stridor: Plan: inspiratory mucous plug/impaction in trachea or mainstem bronchus? vocal cord paralysis? other? Dr Friend to see CT soft tissue neck 06/03/24 without pathology of the upper airway except for dilated esophagus not sure she would tolerate a bedside laryngoscopy by ENT give supportive care & follow this for now (13) Urinary tract infection: Plan: 2nd to GNR rocephin, and now cefepime, should suffice follow cx Plan DVT prophylaxis: Heparin 5000 units subcutaneous twice daily Care plan discussed with nursing staff, GI team (Azucena Guardado), Pulmonary (Dr Friend), respiratory, and pt's mother Karie ([phone]) and sister Patient with worsening respiratory status and overall medical complexity will tx from med-tele to PCU highly complex care coordination today -- total time 90 minutes (multiple visits, multiple conversations with various team members as above, etc) Admission and Anticipated Discharge Date Admission Date: June 11, 2024 Subjective Patient lyuing in bed. Appears comfortable. Family at bedside. Review of Systems Review of Systems: All systems reviewed & are unremarkable except as noted in HPI & below Physical Exam Physical Exam: Constitutional: No acute distress HEENT: EOMI, PERRLA, no stridor Respiratory system: Decreased air entry bilaterally,positive crackles bilaterally CVS: S1-S2 positive, no murmurs or gallops Abdomen: Soft, nontender, nondistended, positive bowel sounds x4 Extremities: +2 pulses bilaterally radialis/ dorsalis pedis, no cyanosis, minimal pitting edema bilateral lower ankles Neuro: Somnolent, more alert than yesterday Psych: Unable to assess G/U: Positive Spaulding placed on 06/18 Musculoskeletal: Contracted upper and lower extremities Results & Data Results & Data Vital Signs (Past 12 Hours) Vital Signs Temp Pulse Resp BP Pulse Ox O2 Del Method O2 Flow Rate 06/18/24 18:18 36.8 C 107 H 18 151/84 H 97 Oxymask 2 06/18/24 15:38 110 H 22 98 Oxymask 2 06/18/24 12:23 36.8 C 105 H 19 106/74 95 Oxymask 3 06/18/24 11:46 100 H 18 92 Oxymask 2 06/18/24 10:00 Oxymask 06/18/24 09:57 37.1 C 107 H 19 98/64 L 96 Oxymask 2 06/18/24 07:28 102 H 20 96 Oxymask 2 PG Care Time/CCT Total # of Minutes Spent Total Time Spent with Patient: Total time spent is greater than 50% in coordination of care (as documented) at patient's floor/unit and/or counseling patient: Coding Level of Care Code 26445 SUB INP/OBS CARE 2/35MIN Diagnoses Acute respiratory failure with hypoxia J96.01 Rhinovirus B34.8 Aspiration pneumonia J69.0 Aspiration pneumonia type: unspecified Laterality: right Lung location: unspecified part of lung Dysphagia R13.10 Cerebral palsy G80.9 Cerebral palsy type: unspecified type Hypothyroidism (acquired) E03.9 Esophageal dilatation K22.89 Acute metabolic encephalopathy G93.41 Abdominal distension R14.0 GERD (gastroesophageal reflux disease) K21.9 Valproic acid toxicity T42.6X1A Stridor R06.1 Urinary tract infection N30.00 Hematuria presence: without hematuria Urinary tract infection type: acute cystitis (3) Aspiration pneumonia Aspiration pneumonia type: unspecified Laterality: right Lung location: unspecified part of lung Qualified Code(s): J69.0 - Pneumonitis due to inhalation of food and vomit (5) Cerebral palsy Cerebral palsy type: unspecified type Qualified Code(s): G80.9 - Cerebral palsy, unspecified (13) Urinary tract infection Hematuria presence: without hematuria Urinary tract infection type: acute cystitis Qualified Code(s): N30.00 - Acute cystitis without hematuria
--- NOTE | 2024-06-19 07:46 | XRay Report ---
XR chest 1V portable HISTORY: 59 years-old Female f/u acute short of breath COMPARISON: June 18, 2024 TECHNIQUE: AP view of the FINDINGS: Enteric tube is present with distal tip within the gastric body. Limited exam secondary to positionin g. Patulous dilation of the esophagus redemonstrated. Central bronchial wall thickening without pneum othorax. Pulmonary vascular congestion with subsegmental bibasilar densities and trace pleural effusi ons again noted. There is unchanged right hemidiaphragmatic elevation. The bones appear intact. IMPRESSION: 1. Cardiomegaly with unchanged pulmonary vascular congestion and trace pleural effusions. 2. Mild bibasilar densities suggest atelectasis. 3. Patulous dilation of the esophagus redemonstrated. ACT 112: Negative or not required by law. The above report was generated using voice recognition software. It may contain grammatical, syntax o r spelling errors. Electronically signed by: Eduin Wick M.D. 06/19/2024 7:45 AM
--- NOTE | 2024-06-19 09:15 | Pulmonology Progress Note ---
Date of Service June 19, 2024 Assessment & Plan (1) Rhinovirus: (2) Multifocal pneumonia: (3) Cerebral palsy: Cerebral palsy type: unspecified type Qualified Code(s): G80.9 - Cerebral palsy, unspecified (4) Aspiration pneumonia: Aspiration pneumonia type: unspecified Laterality: right Lung location: unspecified part of lung Qualified Code(s): J69.0 - Pneumonitis due to inhalation of food and vomit (5) Abnormal chest CT: (6) Acute respiratory failure with hypoxia: Plan CT chest 06/16/2024 personally reviewed: Collapse of the right middle lobe Consolidative changes appreciated in the right lower lobe as well as left lower lobe Significantly dilated esophagus No significant mediastinal lymphadenopathy -- Multilobar pneumonia Respiratory bio fire was positive for entero-/rhinovirus, negative for everything else Nasal MRSA negative, procalcitonin 26.2 BNP 457 -- Atelectasis/collapse of the right middle lobe Add CoughAssist to the patient's regimen --Stridor No clear abnormality appreciated on the CT chest at least till the glottis and subglottic Patient does seem to have significant phlegm and she is not able to clear it Will try the above measures along with naso- pharyngeal suctioning Plan: 20 mg of Lasix to be given today Continue with 7% hypertonic saline, continue with nebulizers Continue with Mucinex through NG tube and CoughAssist has been added If there is any worsening then patient will likely need to be intubated and at that time bronchoscopy could be considered Plan was discussed with RN at bedside Please note the above document was generated using voice recognition software. It may contain grammatical, syntax or spelling errors.Any formal questions or concerns about the content, text or information contained within the body of this dictation should be directly addressed to the provider for clarification. Admission and Anticipated Discharge Date Admission Date: June 11, 2024 Subjective Patient seen and examined at bedside. No acute distress, no adverse events overnight Patient's family was in the room. She has been tolerating the CoughAssist and bringing up phlegm. She was more alert compared to before Has been afebrile Review of Systems 2 Review of Systems: All systems reviewed & are unremarkable except as noted in Subjective Physical Exam 2 Physical Exam: Constitutional: No acute distress HEENT: EOMI, PERRLA, no stridor Respiratory system: Decreased air entry bilaterally, positive rhonchi, positive mild expiratory wheeze, positive crackles bilaterally CVS: S1-S2 positive, no murmurs or gallops Abdomen: Soft, nontender, nondistended, positive bowel sounds x4 Extremities: +2 pulses bilaterally radialis/ dorsalis pedis, no cyanosis, minimal pitting edema bilateral lower ankles Neuro: Alert, opening eyes, not following any commands Psych: Unable to assess G/U: Positive Camacho Musculoskeletal: Contracted upper and lower extremities Skin: no rashes, warm and dry Lymphatic: no cervical or axillary lymphadenopathy Results & Data Results & Data Vital Signs (Past 12 Hours) Vital Signs Temp Pulse Pulse Pulse Resp BP BP 06/19/24 08:25 37.0 C 101 H 22 103/68 06/19/24 07:30 101 H 06/19/24 07:12 100 H 18 06/19/24 03:57 101 H 93/55 L 06/19/24 03:39 36.6 C 102 H 16 06/18/24 23:41 36.4 C L 101 H 17 06/18/24 21:47 105 H BP Pulse Ox O2 Del Method O2 Flow Rate 06/19/24 08:25 96 Oxymask 2 06/19/24 07:30 06/19/24 07:12 98 Oxymask 2 06/19/24 03:57 06/19/24 03:39 90/53 L 95 Oxymask 06/18/24 23:41 92/55 L 97 Oxymask 06/18/24 21:47 Laboratory Results 06/18/24 05:47 06/18/24 05:47 PG Care Time/CCT Total # of Minutes Spent Total Time Spent with Patient: Total time spent is greater than 50% in coordination of care (as documented) at patient's floor/unit and/or counseling patient: Coding Level of Care Code 26836 SUB INP/OBS CARE 2/35MIN Diagnoses Rhinovirus B34.8 Multifocal pneumonia J18.9 Cerebral palsy G80.9 Cerebral palsy type: unspecified type Aspiration pneumonia J69.0 Aspiration pneumonia type: unspecified Laterality: right Lung location: unspecified part of lung Abnormal chest CT R93.89 Acute respiratory failure with hypoxia J96.01
[2024-06-19] MEDS: FUROSEMIDE INJ 20 MG/2 ML VIAL IV ONE (09:51)
--- NOTE | 2024-06-19 10:35 | Hospitalist Progress Note ---
Date of Service June 19, 2024 Assessment & Plan (1) Acute respiratory failure with hypoxia: (2) Rhinovirus: (3) Aspiration pneumonia: (4) Dysphagia: (5) Cerebral palsy: (6) Hypothyroidism (acquired): (7) Esophageal dilatation: (8) Acute metabolic encephalopathy: (9) Urinary tract infection: Plan 59-year-old female with past medical history of cerebral palsy living in [facility], dysphagia, hypothyroidism presents with worsening dysphagia with poor oral intake on and off for few weeks #Dysphagia #Distended esophagus Worsening over the last few weeks GI saw the patient initially had plan for an EGD with PEG tube placement Patient then spiked a fever and ended up with a urinary tract infection and aspiration pneumonia GI has postponed the procedure, they have also discussed with IR and they are not able to provide PEG placement locally. GI is recommended transfer to a tertiary care facility for PEG placement NG tube are being held secondary to aspiration pneumonia Continue Protonix 40 mg IV twice daily Check head CT per family request # Aspiration pneumonia #UTI with E. coli #Suspected fluid overload #Rhinovirus CT of the chest showed infiltrates greatest in the medial right lower lobe. Pulmonary is following the patient Patient is receiving as needed dose of IV Lasix per pulmonology Repeat chest x-ray shows cardiomegaly with unchanged pulmonary vascular congestion She is currently on chest PT, nebulizers As per pulmonology, continue 7% hypertonic saline with nebulizers Continue Mucinex through NG tube and CoughAssist has been added As per pulmonology, if there is any worsening the patient would likely need to be intubated and bronchoscopy would be considered at that time. Continue IV antibiotics: Cefepime plus Flagyl (day 3) #Acute metabolic encephalopathy, likely secondary to aspiration pneumonia and UTI #Cerebral palsy Depakote level elevated at 149 on admission Repeat Depakote level from 06/17/24 is 81 Continue reduced dose of IV Depakote twice daily Continue baclofen, Seroquel, Paxil, mirtazapine and hydroxyzine: Reduced doses given encephalopathy #Hypothyroidism Continue levothyroxine 50 mcg daily CODE STATUS: Full code DVT prophylaxis: Heparin 5000 units subcutaneous twice daily Care plan discussed with nursing staff, GI team and mother Karie ([phone]) and sister Jodie updated at bedside Admission and Anticipated Discharge Date Admission Date: June 11, 2024 Subjective Patient seen and examined Radiology reviewed Mother Karie and Sister Jodie at bedside Caregiver from patient's H also at bedside Patient is somnolent but arousable and interacting with family but falls asleep easily Family is concerned that she may have had a stroke which may be causing her dysphagia which has been going on for a few weeks now. They would like a CAT scan of the head. They are aware that she would not tolerate an MRI of the head. They had discussed this with the hospitalist yesterday but no imaging was ordered and they are requesting a CT of the head Physical Exam Physical Exam: General: Somnolent, no acute distress noted Psych: Somnolent, but arousable HEENT: Anicteric sclera CVS: Regular rate and rhythm Lungs: Bilateral air entry diminished breath sounds at the bases, no wheezing noted Abdomen: Soft, nontender, no rebound, no guarding Ext: No edema noted, contractures noted Results & Data Results & Data Vital Signs (Past 12 Hours) Vital Signs Temp Pulse Pulse Pulse Resp BP BP 06/19/24 08:25 37.0 C 101 H 22 103/68 06/19/24 08:00 06/19/24 07:30 101 H 06/19/24 07:12 100 H 18 06/19/24 03:57 101 H 93/55 L 06/19/24 03:39 36.6 C 102 H 16 06/18/24 23:41 36.4 C L 101 H 17 BP Pulse Ox O2 Del Method O2 Flow Rate 06/19/24 08:25 96 Oxymask 2 06/19/24 08:00 Oxymask 2 06/19/24 07:30 06/19/24 07:12 98 Oxymask 2 06/19/24 03:57 06/19/24 03:39 90/53 L 95 Oxymask 06/18/24 23:41 92/55 L 97 Oxymask Diagnostic Findings Chest X-Ray 06/19/24 07:00 XR chest 1V portable HISTORY: 59 years-old Female f/u acute short of breath COMPARISON: June 18, 2024 TECHNIQUE: AP view of the FINDINGS: Enteric tube is present with distal tip within the gastric body. Limited exam secondary to positioning. Patulous dilation of the esophagus redemonstrated. Central bronchial wall thickening without pneumothorax. Pulmonary vascular congestion with subsegmental bibasilar densities and trace pleural effusions again noted. There is unchanged right hemidiaphragmatic elevation. The bones appear intact. IMPRESSION: 1. Cardiomegaly with unchanged pulmonary vascular congestion and trace pleural effusions. 2. Mild bibasilar densities suggest atelectasis. 3. Patulous dilation of the esophagus redemonstrated. ACT 112: Negative or not required by law. The above report was generated using voice recognition software. It may contain grammatical, syntax or spelling errors. Electronically signed by: Eduin Wick M.D. 06/19/2024 7:45 AM PG Care Time/CCT Total # of Minutes Spent Total Time Spent with Patient: Total time spent is greater than 50% in coordination of care (as documented) at patient's floor/unit and/or counseling patient: Coding Level of Care Code 99651 SUB INP/OBS CARE 3/50MIN Diagnoses Acute respiratory failure with hypoxia J96.01 Rhinovirus B34.8 Aspiration pneumonia J69.0 Aspiration pneumonia type: unspecified Laterality: right Lung location: unspecified part of lung Dysphagia R13.10 Cerebral palsy G80.9 Cerebral palsy type: unspecified type Hypothyroidism (acquired) E03.9 Esophageal dilatation K22.89 Acute metabolic encephalopathy G93.41 Urinary tract infection N30.00 Hematuria presence: without hematuria Urinary tract infection type: acute cystitis (3) Aspiration pneumonia Aspiration pneumonia type: unspecified Laterality: right Lung location: unspecified part of lung Qualified Code(s): J69.0 - Pneumonitis due to inhalation of food and vomit (5) Cerebral palsy Cerebral palsy type: unspecified type Qualified Code(s): G80.9 - Cerebral palsy, unspecified (9) Urinary tract infection Hematuria presence: without hematuria Urinary tract infection type: acute cystitis Qualified Code(s): N30.00 - Acute cystitis without hematuria
--- NOTE | 2024-06-20 01:50 | CT Scan Report ---
Exam(s): CT HEAD Without Contrast EXAM: CT Head Without Intravenous Contrast CLINICAL HISTORY: Reason for exam: esophageal dysfunction/dysphagia for 2 weeks ?CVA. TECHNIQUE: Axial computed tomography images of the head/brain without intravenous contrast. CTDI is 37.42 mGy and DLP is 624.41 mGy-cm. Automated exposure control was utilized for the study. A dose lowering technique was utilized adhering to the principles of ALARA. COMPARISON: Prior head CT from July 20, 2015. FINDINGS: Brain: Unremarkable. No hemorrhage. No significant white matter disease. No edema. Empty sella with enlarged diaphragmatic sella. Ventricles: Advanced ventriculomegaly. Bones/joints: Unremarkable. No acute fracture. Soft tissues: Unremarkable. Sinuses: Chronic left maxillary, sphenoid and ethmoid sinusitis. No acute sinusitis. Mastoid air cells: Unremarkable as visualized. No mastoid effusion. IMPRESSION: No evidence of acute intracranial pathology. Electronically signed by: Marylou Tate MD 06/20/24 01:48 AM
[2024-06-20 06:40] LABS: Hematocrit (blood only) 31.3 % (37.0-47.0); Hemoglobin 10.7 g/dl (12.0-16.0); Mean Corpuscular Hemoglobin 31.6 pg (25.0-34.0); Mean Corpuscular Hgb Conc 34.2 g/dL (32.0-36.0); Mean Corpuscular Volume 92.3 fL (80.0-100.0); Mean Platelet Volume 9.2 fL (9.4-12.4); Platelet Count 393 K/uL (130-400); RDW Coefficient of Variation 14.5 % (11.5-14.5); RDW Standard Deviation 48.9 fL (36.4-46.3); Red Blood Count 3.39 M/uL (4.20-5.40); White Blood Count 9.66 K/ul (4.8-10.8)
[2024-06-20 07:05] LABS: Albumin Globulin Ratio 1.1 (0.9-2); Albumin Level 2.9 gm/dl (3.4-5.0); BUN Creatinine Ratio 31.3 (10-20); Bilirubin,Total 0.3 mg/dl (0.2-1.0); Calcium 7.9 mg/dl (8.6-10.3); Creatinine Clr Calc Pharmacy 141.1 ml/min; Globulin 2.7 gm/dl (2.5-4.0); Magnesium 1.7 mg/dl (1.7-2.4); Potassium 2.8 mmol/L (3.5-5.1); Total Protein 5.6 gm/dl (6.0-8.3)
[2024-06-20] MEDS: POTASSIUM CHLORIDE / WTR 10 MEQ/100 ML PLCT IV SCH (08:01)
[2024-06-20] MEDS: POTASSIUM CHLORIDE 20 MEQ/15 ML UDC NG STA (08:32)
[2024-06-20] MEDS: MAGNESIUM SULFATE / D5W 1 GM/100 ML BAG IV SCH (09:45)
[2024-06-20] MEDS: TUBE FEEDING WATER FLUSH GT STA (09:52)
--- NOTE | 2024-06-20 11:21 | Pulmonology Progress Note ---
Date of Service June 20, 2024 Assessment & Plan (1) Rhinovirus: (2) Multifocal pneumonia: (3) Cerebral palsy: Cerebral palsy type: unspecified type Qualified Code(s): G80.9 - Cerebral palsy, unspecified (4) Aspiration pneumonia: Aspiration pneumonia type: unspecified Laterality: right Lung location: unspecified part of lung Qualified Code(s): J69.0 - Pneumonitis due to inhalation of food and vomit (5) Abnormal chest CT: (6) Acute respiratory failure with hypoxia: Plan CT chest 06/16/2024 personally reviewed: Collapse of the right middle lobe Consolidative changes appreciated in the right lower lobe as well as left lower lobe Significantly dilated esophagus No significant mediastinal lymphadenopathy -- Multilobar pneumonia Respiratory bio fire was positive for entero-/rhinovirus, negative for everything else Nasal MRSA negative, procalcitonin 26.2 BNP 457 -- Atelectasis/collapse of the right middle lobe Add CoughAssist to the patient's regimen --Stridor --> resolved with suctioning and CoughAssist No clear abnormality appreciated on the CT chest at least till the glottis and subglottic Patient does seem to have significant phlegm and she is not able to clear it Will try the above measures along with naso- pharyngeal suctioning Plan: Continue with 7% hypertonic saline, continue with nebulizers Continue with Mucinex through NG tube and CoughAssist I do think patient is going to benefit from CoughAssist even at home. Can get case management involved in this If there is any worsening then patient will likely need to be intubated and at that time bronchoscopy could be considered Patient's urine output has gone now. Would recommend to do bladder scan. If that is negative and if there is no significant output then maybe 5% albumin 250 mL could be thought of Plan was discussed with RN at bedside and primary team Please note the above document was generated using voice recognition software. It may contain grammatical, syntax or spelling errors.Any formal questions or concerns about the content, text or information contained within the body of this dictation should be directly addressed to the provider for clarification. Admission and Anticipated Discharge Date Admission Date: June 11, 2024 Subjective Patient seen and examined at bedside. No acute distress, no adverse events overnight She was saturating 96-97% on 4 L nasal cannula, I went down to 2 L She was more alert today. The tracking and trying to answer some questions Patient's family was in the room Has been afebrile Unfortunately patient's urine output has gone down Review of Systems 2 Review of Systems: All systems reviewed & are unremarkable except as noted in Subjective Physical Exam 2 Physical Exam: Constitutional: No acute distress HEENT: EOMI, PERRLA, no stridor Respiratory system: Decreased air entry bilaterally, no rhonchi, no wheeze, positive crackles bilaterally CVS: S1-S2 positive, no murmurs or gallops Abdomen: Soft, nontender, nondistended, positive bowel sounds x4 Extremities: +2 pulses bilaterally radialis/ dorsalis pedis, no cyanosis, minimal pitting edema bilateral lower ankles Neuro: Alert, opening eyes, not following any commands Psych: Unable to assess G/U: Positive Camacho Musculoskeletal: Contracted upper and lower extremities Skin: no rashes, warm and dry Lymphatic: no cervical or axillary lymphadenopathy Results & Data Results & Data Vital Signs (Past 12 Hours) Vital Signs Temp Pulse Pulse Pulse Resp BP Pulse Ox 06/20/24 11:12 101 H 15 96 06/20/24 08:20 36.5 C 110 H 19 115/76 96 06/20/24 07:40 06/20/24 07:20 110 H 19 94 06/20/24 03:47 37.1 C 108 H 16 92/65 L 95 06/19/24 23:38 105 H 06/19/24 23:25 O2 Del Method O2 Flow Rate FiO2 06/20/24 11:12 Oxymask 4 06/20/24 08:20 Oxymask 4 06/20/24 07:40 Oxymask 4 06/20/24 07:20 Oxymask 4 06/20/24 03:47 Oxymask 4.0 06/19/24 23:38 06/19/24 23:25 Oxymask 2 90 Laboratory Results 06/20/24 06:24 06/20/24 06:24 PG Care Time/CCT Total # of Minutes Spent Total Time Spent with Patient: Total time spent is greater than 50% in coordination of care (as documented) at patient's floor/unit and/or counseling patient: Coding Level of Care Code 47106 SUB INP/OBS CARE 2/35MIN Diagnoses Rhinovirus B34.8 Multifocal pneumonia J18.9 Cerebral palsy G80.9 Cerebral palsy type: unspecified type Aspiration pneumonia J69.0 Aspiration pneumonia type: unspecified Laterality: right Lung location: unspecified part of lung Abnormal chest CT R93.89 Acute respiratory failure with hypoxia J96.01
[2024-06-20] MEDS: TUBE FEEDING WATER FLUSH NG SCH (12:49)
--- NOTE | 2024-06-20 13:12 | Hospitalist Progress Note ---
Date of Service June 20, 2024 Assessment & Plan (1) Acute respiratory failure with hypoxia: (2) Rhinovirus: (3) Aspiration pneumonia: (4) Dysphagia: (5) Cerebral palsy: (6) Hypothyroidism (acquired): (7) Esophageal dilatation: (8) Acute metabolic encephalopathy: (9) Urinary tract infection: Plan 59-year-old female with past medical history of cerebral palsy living in [facility], dysphagia, hypothyroidism presents with worsening dysphagia with poor oral intake on and off for few weeks #Dysphagia #Distended esophagus Worsening over the last few weeks GI saw the patient initially had plan for an EGD with PEG tube placement Patient then spiked a fever and ended up with a urinary tract infection and aspiration pneumonia GI has postponed the procedure, they have also discussed with IR and they are not able to provide PEG placement locally. GI is recommended transfer to a tertiary care facility for PEG placement NG tube are being held secondary to aspiration pneumonia Continue Protonix 40 mg IV twice daily Head CT from 06/19/2024 was unremarkable # Aspiration pneumonia #UTI with E. coli #Suspected fluid overload #Rhinovirus CT of the chest showed infiltrates greatest in the medial right lower lobe. Pulmonary is following the patient Patient is receiving as needed dose of IV Lasix per pulmonology Repeat chest x-ray shows cardiomegaly with unchanged pulmonary vascular congestion She is currently on chest PT, nebulizers As per pulmonology, continue 7% hypertonic saline with nebulizers Continue Mucinex through NG tube and CoughAssist has been added As per pulmonology, if there is any worsening the patient would likely need to be intubated and bronchoscopy would be considered at that time. As per pulmonology, they do not believe CoughAssist and will help in the long- term. Continue IV antibiotics: Cefepime plus Flagyl (day 4) #Acute metabolic encephalopathy, likely secondary to aspiration pneumonia and UTI #Cerebral palsy Depakote level elevated at 149 on admission Repeat Depakote level from 06/17/24 is 81 Continue reduced dose of IV Depakote twice daily Continue baclofen, Seroquel, Paxil, mirtazapine and hydroxyzine: Reduced doses given encephalopathy #Hypothyroidism Continue levothyroxine 50 mcg daily CODE STATUS: Goals of care discussed with patient's mother Karie and her sister Jodie who is a nurse. Family does not want her to be resuscitated or intubated and are agreeable to DNR/DNI. They are not completely ready to transition to comfort measures at this point. They would like a chance to see if [facility] can put a PEG tube in patient before they consider transition to comfort measures. They understand that even putting a PEG tube will not change the risk of aspiration but their hope is to get the PEG tube and more to be able to get patient some medications should they even choose to transition to comfort measures down the line. CODE STATUS changed to DNR/DNI: Pulmonology informed DVT prophylaxis: Heparin 5000 units subcutaneous twice daily Care plan discussed with nursing staff, GI team and mother Karie ([phone]) and sister Jodie updated at bedside Admission and Anticipated Discharge Date Admission Date: June 11, 2024 Subjective Patient seen and examined Family at bedside including mother, father and both sisters Labs reviewed Radiology reviewed Patient is much more awake and interactive today She appears comfortable She is requiring 2 to 4 L of oxy mask and saturations are above 95% Physical Exam Physical Exam: General: no acute distress noted Psych: Awake and interactive HEENT: Anicteric sclera CVS: Regular rate and rhythm Lungs: Bilateral air entry, no wheezing noted Abdomen: Soft, nontender, no rebound, no guarding Ext: No edema noted, contractures noted Results & Data Results & Data Vital Signs (Past 12 Hours) Vital Signs Temp Pulse Pulse Resp BP Pulse Ox O2 Del Method 06/20/24 11:23 36.8 C 104 H 17 117/76 99 Oxymask 06/20/24 11:12 101 H 15 96 Oxymask 06/20/24 08:20 36.5 C 110 H 19 115/76 96 Oxymask 06/20/24 07:40 Oxymask 06/20/24 07:20 110 H 19 94 Oxymask 06/20/24 03:47 37.1 C 108 H 16 92/65 L 95 Oxymask O2 Flow Rate 06/20/24 11:23 4 06/20/24 11:12 4 06/20/24 08:20 4 06/20/24 07:40 4 06/20/24 07:20 4 06/20/24 03:47 4.0 Laboratory Results Laboratory Results - last 24 hr 06/20/24 06:24 WBC 9.66 RBC 3.39 L Hgb 10.7 L Hct 31.3 L MCV 92.3 MCH 31.6 MCHC 34.2 RDW Std Deviation 48.9 H RDW Coeff of Christopher 14.5 Plt Count 393 MPV 9.2 L Sodium 141 Potassium 2.8 L Chloride 100 Carbon Dioxide 35 H Anion Gap 6 BUN 10 Creatinine 0.32 L Est Cr Clr Drug Dosing 141.1 eGFR 119.49 BUN/Creatinine Ratio 31.3 H Glucose 116 H Calcium 7.9 L Magnesium 1.7 Total Bilirubin 0.3 AST 34 ALT 16 Alkaline Phosphatase 148 H Total Protein 5.6 L Albumin 2.9 L Globulin 2.7 Albumin/Globulin Ratio 1.[address] 06/19/24 19:38 Exam(s): CT HEAD Without Contrast EXAM: CT Head Without Intravenous Contrast CLINICAL HISTORY: Reason for exam: esophageal dysfunction/dysphagia for 2 weeks ?CVA. TECHNIQUE: Axial computed tomography images of the head/brain without intravenous contrast. CTDI is 37.42 mGy and DLP is 624.41 mGy-cm. Automated exposure control was utilized for the study. A dose lowering technique was utilized adhering to the principles of ALARA. COMPARISON: Prior head CT from July 20, 2015. FINDINGS: Brain: Unremarkable. No hemorrhage. No significant white matter disease. No edema. Empty sella with enlarged diaphragmatic sella. Ventricles: Advanced ventriculomegaly. Bones/joints: Unremarkable. No acute fracture. Soft tissues: Unremarkable. Sinuses: Chronic left maxillary, sphenoid and ethmoid sinusitis. No acute sinusitis. Mastoid air cells: Unremarkable as visualized. No mastoid effusion. IMPRESSION: No evidence of acute intracranial pathology. Electronically signed by: Marylou Tate MD 06/20/24 01:48 AM PG Care Time/CCT Total # of Minutes Spent Total Time Spent with Patient: Total time spent is greater than 50% in coordination of care (as documented) at patient's floor/unit and/or counseling patient: Coding Level of Care Code 51965 SUB INP/OBS CARE 3/50MIN Diagnoses Acute respiratory failure with hypoxia J96.01 Rhinovirus B34.8 Aspiration pneumonia J69.0 Aspiration pneumonia type: unspecified Laterality: right Lung location: unspecified part of lung Dysphagia R13.10 Cerebral palsy G80.9 Cerebral palsy type: unspecified type Hypothyroidism (acquired) E03.9 Esophageal dilatation K22.89 Acute metabolic encephalopathy G93.41 Urinary tract infection N30.00 Hematuria presence: without hematuria Urinary tract infection type: acute cystitis (3) Aspiration pneumonia Aspiration pneumonia type: unspecified Laterality: right Lung location: unspecified part of lung Qualified Code(s): J69.0 - Pneumonitis due to inhalation of food and vomit (5) Cerebral palsy Cerebral palsy type: unspecified type Qualified Code(s): G80.9 - Cerebral palsy, unspecified (9) Urinary tract infection Hematuria presence: without hematuria Urinary tract infection type: acute cystitis Qualified Code(s): N30.00 - Acute cystitis without hematuria
[2024-06-20] MEDS: POTASSIUM CHLORIDE 20 MEQ/15 ML UDC PO ONE (16:27)
--- NOTE | 2024-06-20 20:17 | XCELERA ---
[id number]
[2024-06-21 07:27] LABS: Hematocrit (blood only) 32.7 % (37.0-47.0); Hemoglobin 10.5 g/dl (12.0-16.0); Mean Corpuscular Hemoglobin 30.9 pg (25.0-34.0); Mean Corpuscular Hgb Conc 32.1 g/dL (32.0-36.0); Mean Corpuscular Volume 96.2 fL (80.0-100.0); Mean Platelet Volume 9.5 fL (9.4-12.4); Nucleated RBC # (auto) 0.02 K/uL (0.00-0.12); Nucleated RBC % (auto) 0.2 %; Platelet Count 406 K/uL (130-400); RDW Coefficient of Variation 15.9 % (11.5-14.5); RDW Standard Deviation 55.8 fL (36.4-46.3); White Blood Count 9.46 K/ul (4.8-10.8)
--- NOTE | 2024-06-21 07:28 | XRay Report ---
XR chest 1V portable CLINICAL HISTORY: f/u COMPARISON STUDY: Chest CT June 16, 2024. Chest radiograph June 19, 2024. FINDINGS: Tip of nasogastric tube is within the body of the stomach. Thoracic spine levoscoliosis is incidentally noted. There is no pneumothorax or pleural effusion. Cardiomediastinal silhouette is sta ble. Right basilar opacity favors atelectasis. Pulmonary vascular congestion has improved. IMPRESSION: 1. Interval improvement in pulmonary vascular congestion. 2. Right basilar opacity suggestive of atelectasis. No consolidation to suggest pneumonia. ACT 112: Negative or not required by law. Electronically signed by: Jignesh Ibrahim M.D. 06/21/2024 7:27 AM
[2024-06-21 07:45] LABS: BUN Creatinine Ratio 21.9 (10-20); Creatinine Clr Calc Pharmacy 124.2 ml/min; Magnesium 2.3 mg/dl (1.7-2.4); Potassium 5.2 mmol/L (3.5-5.1)
--- NOTE | 2024-06-21 09:30 | Hospitalist Progress Note ---
Date of Service June 21, 2024 Assessment & Plan (1) Acute respiratory failure with hypoxia: (2) Rhinovirus: (3) Aspiration pneumonia: (4) Dysphagia: (5) Cerebral palsy: (6) Hypothyroidism (acquired): (7) Esophageal dilatation: (8) Acute metabolic encephalopathy: (9) Urinary tract infection: Plan 59-year-old female with past medical history of cerebral palsy living in [facility], dysphagia, hypothyroidism presents with worsening dysphagia with poor oral intake on and off for few weeks #Dysphagia #Distended esophagus Worsening over the last few weeks GI saw the patient initially had plan for an EGD with PEG tube placement Patient then spiked a fever and ended up with a urinary tract infection and aspiration pneumonia GI has postponed the procedure, they have also discussed with IR and they are not able to provide PEG placement locally. GI is recommended transfer to a tertiary care facility for PEG placement NG tube are being held secondary to aspiration pneumonia Continue Protonix 40 mg IV twice daily Head CT from 06/19/2024 was unremarkable Spoke with GI: Dr. Patino: He will review patient's scans and follow-up regarding recommendations for EGD # Aspiration pneumonia #UTI with E. coli #Suspected fluid overload #Rhinovirus CT of the chest showed infiltrates greatest in the medial right lower lobe. Pulmonary is following the patient Patient is receiving as needed dose of IV Lasix per pulmonology Repeat chest x-ray shows cardiomegaly with unchanged pulmonary vascular congestion She is currently on chest PT, nebulizers As per pulmonology, continue 7% hypertonic saline with nebulizers Continue Mucinex through NG tube and CoughAssist has been added As per pulmonology, if there is any worsening the patient would likely need to be intubated and bronchoscopy would be considered at that time. As per pulmonology, they believe CoughAssist and will help in the long-term and pulmonology has consulted case management regarding this. Continue IV antibiotics: Cefepime plus Flagyl (day 5) #Acute metabolic encephalopathy, likely secondary to aspiration pneumonia and UTI #Cerebral palsy Depakote level elevated at 149 on admission Repeat Depakote level from 06/17/24 is 81 Continue reduced dose of IV Depakote Continue baclofen, Seroquel, Paxil, mirtazapine and hydroxyzine: Nighttime dose of Seroquel reduced to 100 and daytime doses of Seroquel and hydroxyzine held for now #Hypothyroidism Continue levothyroxine 50 mcg daily CODE STATUS: DNR/DNI DVT prophylaxis: Heparin 5000 units subcutaneous twice daily Care plan discussed with nursing staff, GI team and mother Karie ([phone]) and sister Jodie updated at bedside Admission and Anticipated Discharge Date Admission Date: June 11, 2024 Subjective Patient seen and examined Labs and radiology reviewed Family including mother and sister Jodie at bedside As per family, patient looks better today Patient appears comfortable, she is still requiring 2 to 3 L of oxygen via OxyMask Physical Exam Physical Exam: General: no acute distress noted Psych: Awake and interactive HEENT: Anicteric sclera CVS: Regular rate and rhythm Lungs: Bilateral air entry with decreased breath sounds at the bases, no wheezing noted Abdomen: Soft, nontender Ext: No edema noted, contractures noted Results & Data Results & Data Vital Signs (Past 12 Hours) Vital Signs Temp Pulse Pulse Pulse Resp BP BP 06/21/24 08:52 36.7 C 109 H 16 139/70 06/21/24 07:28 78 16 06/21/24 03:40 107 H 107/72 06/21/24 03:30 36.9 C 102 H 17 85/59 L 06/20/24 22:33 36.4 C L 108 H 14 109/70 06/20/24 22:00 06/20/24 21:52 107 H Pulse Ox O2 Del Method O2 Flow Rate 06/21/24 08:52 95 Oxymask 3 06/21/24 07:28 92 Oxymask 2 06/21/24 03:40 06/21/24 03:30 95 Oxymask 2 06/20/24 22:33 92 Oxymask 4.0 06/20/24 22:00 Oxymask 06/20/24 21:52 Laboratory Results Laboratory Results - last 24 hr 06/21/24 06:43 WBC 9.46 RBC 3.40 L Hgb 10.5 L Hct 32.7 L MCV 96.2 MCH 30.9 MCHC 32.1 RDW Std Deviation 55.8 H RDW Coeff of Christopher 15.9 H Plt Count 406 H MPV 9.5 Absolute Nucleated RBC 0.02 Nucleated RBC % (auto) 0.2 Sodium 139 Potassium 5.2 H D Chloride 105 Carbon Dioxide 30 Anion Gap 4 BUN 7 Creatinine 0.32 L Est Cr Clr Drug Dosing 124.2 eGFR 119.49 BUN/Creatinine Ratio 21.9 H Glucose 102 H Calcium 8.0 L Magnesium 2.3 Procalcitonin Cancelled Ref Lab Test Result Pending Diagnostic Findings Chest X-Ray 06/21/24 07:00 XR chest 1V portable CLINICAL HISTORY: f/u COMPARISON STUDY: Chest CT June 16, 2024. Chest radiograph June 19, 2024. FINDINGS: Tip of nasogastric tube is within the body of the stomach. Thoracic spine levoscoliosis is incidentally noted. There is no pneumothorax or pleural effusion. Cardiomediastinal silhouette is stable. Right basilar opacity favors atelectasis. Pulmonary vascular congestion has improved. IMPRESSION: 1. Interval improvement in pulmonary vascular congestion. 2. Right basilar opacity suggestive of atelectasis. No consolidation to suggest pneumonia. ACT 112: Negative or not required by law. Electronically signed by: Jignesh Ibrahim M.D. 06/21/2024 7:27 AM PG Care Time/CCT Total # of Minutes Spent Total Time Spent with Patient: Total time spent is greater than 50% in coordination of care (as documented) at patient's floor/unit and/or counseling patient: Coding Level of Care Code 46542 SUB INP/OBS CARE 2/35MIN Diagnoses Acute respiratory failure with hypoxia J96.01 Rhinovirus B34.8 Aspiration pneumonia J69.0 Aspiration pneumonia type: unspecified Laterality: right Lung location: unspecified part of lung Dysphagia R13.10 Cerebral palsy G80.9 Cerebral palsy type: unspecified type Hypothyroidism (acquired) E03.9 Esophageal dilatation K22.89 Acute metabolic encephalopathy G93.41 Urinary tract infection N30.00 Hematuria presence: without hematuria Urinary tract infection type: acute cystitis (3) Aspiration pneumonia Aspiration pneumonia type: unspecified Laterality: right Lung location: unspecified part of lung Qualified Code(s): J69.0 - Pneumonitis due to inhalation of food and vomit (5) Cerebral palsy Cerebral palsy type: unspecified type Qualified Code(s): G80.9 - Cerebral palsy, unspecified (9) Urinary tract infection Hematuria presence: without hematuria Urinary tract infection type: acute cystitis Qualified Code(s): N30.00 - Acute cystitis without hematuria
--- NOTE | 2024-06-21 10:04 | Pulmonology Progress Note ---
Date of Service June 21, 2024 Assessment & Plan (1) Rhinovirus: (2) Multifocal pneumonia: (3) Cerebral palsy: Cerebral palsy type: unspecified type Qualified Code(s): G80.9 - Cerebral palsy, unspecified (4) Aspiration pneumonia: Aspiration pneumonia type: unspecified Laterality: right Lung location: unspecified part of lung Qualified Code(s): J69.0 - Pneumonitis due to inhalation of food and vomit (5) Abnormal chest CT: (6) Acute respiratory failure with hypoxia: Plan CT chest 06/16/2024 personally reviewed: Collapse of the right middle lobe Consolidative changes appreciated in the right lower lobe as well as left lower lobe Significantly dilated esophagus No significant mediastinal lymphadenopathy -- Multilobar pneumonia Respiratory bio fire was positive for entero-/rhinovirus, negative for everything else Nasal MRSA negative, procalcitonin 26.2 BNP 457 -- Atelectasis/collapse of the right middle lobe Add CoughAssist to the patient's regimen --Stridor --> resolved with suctioning and CoughAssist No clear abnormality appreciated on the CT chest at least till the glottis and subglottic Patient does seem to have significant phlegm and she is not able to clear it Will try the above measures along with naso- pharyngeal suctioning Plan: Chest x-ray from today shows improvement in patient's opacities. Right middle lobe also seems to have opened up. Continue with 7% hypertonic saline, continue with nebulizers Continue with Mucinex through NG tube and CoughAssist I do think patient is going to benefit from CoughAssist even at home. Can get case management involved in this Plan was discussed with RN at bedside and primary team No further recommendation from pulmonary perspective, will sign off Please call directly with any questions Please note the above document was generated using voice recognition software. It may contain grammatical, syntax or spelling errors.Any formal questions or concerns about the content, text or information contained within the body of this dictation should be directly addressed to the provider for clarification. Admission and Anticipated Discharge Date Admission Date: June 11, 2024 Subjective Patient seen and examined at bedside. No acute distress, no adverse events overnight Patient's family was in the room Patient was very alert, trying to answer some questions She was on oxime mask 4 L saturating 95-96% Has been afebrile Tolerating CoughAssist and nebulizer treatments without any issues Review of Systems 2 Review of Systems: All systems reviewed & are unremarkable except as noted in Subjective Physical Exam 2 Physical Exam: Constitutional: No acute distress HEENT: EOMI, PERRLA, no stridor Respiratory system: Decreased air entry bilaterally, no rhonchi, no wheeze, positive crackles bilaterally CVS: S1-S2 positive, no murmurs or gallops Abdomen: Soft, nontender, nondistended, positive bowel sounds x4 Extremities: +2 pulses bilaterally radialis/ dorsalis pedis, no cyanosis, minimal pitting edema bilateral lower ankles Neuro: Alert, opening eyes, following simple commands Psych: Unable to assess G/U: Positive Camacho Musculoskeletal: Contracted upper and lower extremities Skin: no rashes, warm and dry Lymphatic: no cervical or axillary lymphadenopathy Results & Data Results & Data Vital Signs (Past 12 Hours) Vital Signs Temp Pulse Pulse Resp BP BP Pulse Ox 06/21/24 08:52 36.7 C 109 H 16 139/70 95 06/21/24 08:00 06/21/24 07:28 78 16 92 06/21/24 03:40 107 H 107/72 06/21/24 03:30 36.9 C 102 H 17 85/59 L 95 06/20/24 22:33 36.4 C L 108 H 14 109/70 92 O2 Del Method O2 Flow Rate 06/21/24 08:52 Oxymask 3 06/21/24 08:00 Oxymask 06/21/24 07:28 Oxymask 2 06/21/24 03:40 06/21/24 03:30 Oxymask 2 06/20/24 22:33 Oxymask 4.0 Laboratory Results 06/21/24 06:43 06/21/24 06:43 PG Care Time/CCT Total # of Minutes Spent Total Time Spent with Patient: Total time spent is greater than 50% in coordination of care (as documented) at patient's floor/unit and/or counseling patient: Coding Level of Care Code 54407 SUB INP/OBS CARE 2/35MIN Diagnoses Rhinovirus B34.8 Multifocal pneumonia J18.9 Cerebral palsy G80.9 Cerebral palsy type: unspecified type Aspiration pneumonia J69.0 Aspiration pneumonia type: unspecified Laterality: right Lung location: unspecified part of lung Abnormal chest CT R93.89 Acute respiratory failure with hypoxia J96.01
[2024-06-21] MEDS ORDERED: SIMETHICONE (ENDO) IR PRN (10:27)
--- NOTE | 2024-06-21 10:27 | Gastroenterology Progress Note ---
Date of Service June 21, 2024 Assessment & Plan (1) Esophageal dilatation: Plan: This could be Achalasia. I had a long discussion with the family bedside. If at all possible they would like her to eat as she gets pleasure from this and not rely on a feeding tube. They stated she tolerated a soft diet well prior to her viral infection. At this point I would investigate with an EGD to evaluated the esophageal dilation on imaging. She may ultimately need barium swallow and/or motility studies as may be able to treat Achalasia and allow her to again eat. It is also possible after she fully recovers from her viral infection to have her reevaluated by Speech Pathology for recommendations as they previously said she could tolerate soft diet. The EGD procedure, alternatives including no work up or treatment, risks and benefits were discussed with the patient's mother and sister. Among the risks discussed included cardiorespiratory suppression, aspiration, bleeding, failure to diagnose cancer or other pathology and perforation requiring surgery. In addition we discussed that if specimens are obtained it may be deemed beneficial to send these for genetic/DNA testing. The patient's mother claimed to understand all that was discussed, consented to all and all of her questions were answered. Admission and Anticipated Discharge Date Admission Date: June 11, 2024 [facility] GI Service was asked to see patient again. Please refer to original consult of 06/12 and subsequent GI progress notes. Patient apparently c/o soreness from NG tube according to mother and sister at bedside. Patient originally did not want to be examined. Review of Systems 2 Review of Systems: Unobtainable as to communication difficulties. Physical Exam Physical Exam: Contracted WF NAD ENMT: O2 mask and NG in place Respiratory: Lungs clear anteriorly Cardiovascular: RRR Gastrointestinal (Abdomen): Decreased BS, slight distension but soft and nontender Musculoskeletal: Contracted extremities Results & Data Results & Data Vital Signs (Past 12 Hours) Vital Signs Temp Pulse Pulse Resp BP BP Pulse Ox 06/21/24 08:52 36.7 C 109 H 16 139/70 95 06/21/24 08:00 06/21/24 07:28 78 16 92 06/21/24 03:40 107 H 107/72 06/21/24 03:30 36.9 C 102 H 17 85/59 L 95 06/20/24 22:33 36.4 C L 108 H 14 109/70 92 O2 Del Method O2 Flow Rate 06/21/24 08:52 Oxymask 3 06/21/24 08:00 Oxymask 06/21/24 07:28 Oxymask 2 06/21/24 03:40 06/21/24 03:30 Oxymask 2 06/20/24 22:33 Oxymask 4.0 PG Care Time/CCT Total # of Minutes Spent Total Time Spent with Patient: Total time spent is greater than 50% in coordination of care (as documented) at patient's floor/unit and/or counseling patient: Coding Level of Care Code 52244 SUB INP/OBS CARE 10/10MIN Diagnoses Esophageal dilatation K22.89
[2024-06-21] MEDS: QUEtiapine FUMARATE 100 MG TABLET PO SCH (19:45)
[2024-06-22 07:56] LABS: Hematocrit (blood only) 32.1 % (37.0-47.0); Hemoglobin 10.4 g/dl (12.0-16.0); Mean Corpuscular Hgb Conc 32.4 g/dL (32.0-36.0); Mean Corpuscular Volume 95.5 fL (80.0-100.0); Mean Platelet Volume 9.3 fL (9.4-12.4); Platelet Count 429 K/uL (130-400); RDW Coefficient of Variation 16.4 % (11.5-14.5); RDW Standard Deviation 57.1 fL (36.4-46.3); Red Blood Count 3.36 M/uL (4.20-5.40); White Blood Count 10.67 K/ul (4.8-10.8)
[2024-06-22 08:15] LABS: BUN Creatinine Ratio 17.9 (10-20); Calcium 7.9 mg/dl (8.6-10.3); Creatinine Clr Calc Pharmacy 157.9 ml/min; Potassium 3.8 mmol/L (3.5-5.1)
[2024-06-22 08:20] LABS: INR 1.3 (0.9-1.1); Prothrombin Time 13.5 Seconds (9.0-12.0)
--- NOTE | 2024-06-22 08:58 | Gastroenterology Progress Note ---
Date of Service June 22, 2024 Assessment & Plan (1) Esophageal dilatation: Plan: 59 year old female with cerebral palsy, intellectual disability admitted w/ oropharyngeal dysphagia and Rhinovirus infection, UTI planned for EGD evaluation this AM to rule out other etiologies of her inability to tolerate oral intake. Maintain NPO status Tube feeds appear to have been on hold EGD this AM. We appreciate assistance in the management of any serological abnormality and corrections to include: hemoglobin >7, INR <2, platelets >50,000, potassium levels >3.5 but <5.3, and sodium levels within 5 points of the reference range prior to endoscopic evaluation. Admission and Anticipated Discharge Date Admission Date: June 11, 2024 Subjective Pt was seen and evaluated, chart reviewed. Family at bedside - request to move forward with EGD. No fever, chills, CP, SOB. Review of Systems Review of Systems: All other findings negative except as noted in HPI. Physical Exam Constitutional: WD/WN, vitals as above Respiratory: normal respiratory effort; no respiratory distress Auscultation: + diminished lung sounds Cardiovascular: Rate/Rhythm: regular rate and regular rhythm Gastrointestinal (Abdomen): normal bowel sounds, soft, nontender, no hepatosplenomegaly Skin: no rashes, warm and dry Results & Data Results & Data Vital Signs (Past 12 Hours) Vital Signs Temp Pulse Pulse Pulse Resp BP Pulse Ox 06/22/24 07:45 107 H 06/22/24 07:45 06/22/24 07:36 37.3 C 116 H 22 173/87 H 100 06/22/24 07:25 102 H 20 96 06/22/24 04:00 37.4 C 112 H 17 109/73 99 06/22/24 02:12 06/21/24 22:54 37.0 C 107 H 16 104/70 100 06/21/24 21:42 110 H O2 Del Method O2 Flow Rate 06/22/24 07:45 06/22/24 07:45 Oxymask 2 06/22/24 07:36 Oxymask 2 06/22/24 07:25 Oxymask 2 06/22/24 04:00 Oxymask 2.0 06/22/24 02:12 Oxymask 4 06/21/24 22:54 Oxymask 2.0 06/21/24 21:42 Laboratory Results 10/07/24 Range/Units 07:16 WBC 10.67 (4.8-10.8) K/ul RBC 3.36 L (4.20-5.40) M/uL Hgb 10.4 L (12.0-16.0) g/dl Hct 32.1 L (37.0-47.0) % MCV 95.5 (80.0-100.0) fL MCH 31.0 (25.0-34.0) pg MCHC 32.4 (32.0-36.0) g/dL RDW Std Deviation 57.1 H (36.4-46.3) fL RDW Coeff of Christopher 16.4 H (11.5-14.5) % Plt Count 429 H (130-400) K/uL MPV 9.3 L (9.4-12.4) fL PT 13.5 H (9.0-12.0) Seconds INR 1.3 H (0.9-1.1) Sodium 141 (136-145) mmol/L Potassium 3.8 D (3.5-5.1) mmol/L Chloride 106 (98-107) mmol/L Carbon Dioxide 32 (21-32) mmol/L Anion Gap 3 (3-11) BUN 5 L (6-23) mg/dl Creatinine 0.28 L (0.6-1.2) mg/dl Est Cr Clr Drug Dosing 157.9 ml/min eGFR 123.40 BUN/Creatinine Ratio 17.9 (10-20) Glucose 109 H (70-99(Fasting)) mg/dl Calcium 7.9 L (8.6-10.3) mg/dl Magnesium 2.0 (1.7-2.4) mg/dl PG Care Time/CCT Total # of Minutes Spent Total Time Spent with Patient: Total time spent is greater than 50% in coordination of care (as documented) at patient's floor/unit and/or counseling patient: Coding Level of Care Code None Diagnoses Esophageal dilatation K22.89
--- NOTE | 2024-06-22 09:15 | Hospitalist Progress Note ---
Date of Service June 22, 2024 Assessment & Plan (1) Acute respiratory failure with hypoxia: (2) Rhinovirus: (3) Aspiration pneumonia: (4) Dysphagia: (5) Cerebral palsy: (6) Hypothyroidism (acquired): (7) Esophageal dilatation: (8) Acute metabolic encephalopathy: (9) Urinary tract infection: Plan 59-year-old female with past medical history of cerebral palsy [facility], dysphagia, hypothyroidism presents with worsening dysphagia with poor oral intake on and off for few weeks #Dysphagia #Distended esophagus Worsening over the last few weeks GI saw the patient initially had plan for an EGD with PEG tube placement Patient then spiked a fever and ended up with a urinary tract infection and aspiration pneumonia GI has postponed the procedure, they have also discussed with IR and they are not able to provide PEG placement locally. GI is recommended transfer to a tertiary care facility for PEG placement NG tube are being held secondary to aspiration pneumonia Continue Protonix 40 mg IV twice daily Head CT from 06/19/2024 was unremarkable GI: Dr. Patino saw the patient on 06/21/2024 and is planning on doing an EGD today Await further recommendations from GI post EGD # Aspiration pneumonia #UTI with E. coli #Suspected fluid overload #Rhinovirus CT of the chest showed infiltrates greatest in the medial right lower lobe. Pulmonary is following the patient Patient is receiving as needed dose of IV Lasix per pulmonology Repeat chest x-ray shows cardiomegaly with unchanged pulmonary vascular congestion She is currently on chest PT, nebulizers As per pulmonology, continue 7% hypertonic saline with nebulizers Continue Mucinex through NG tube and CoughAssist has been added As per pulmonology, if there is any worsening the patient would likely need to be intubated and bronchoscopy would be considered at that time. As per pulmonology, they believe CoughAssist and will help in the long-term and pulmonology has consulted case management regarding this. Continue IV antibiotics: Cefepime plus Flagyl (day 5) #Acute metabolic encephalopathy, likely secondary to aspiration pneumonia and UTI #Cerebral palsy Depakote level elevated at 149 on admission Repeat Depakote level from 06/17/24 is 81 Continue reduced dose of IV Depakote Continue baclofen, Seroquel, Paxil, mirtazapine and hydroxyzine #Hypothyroidism Continue levothyroxine 50 mcg daily CODE STATUS: DNR/DNI DVT prophylaxis: Heparin 5000 units subcutaneous twice daily Care plan discussed with nursing staff, GI team and mother Karie ([phone]) and sister Jodie updated at bedside Admission and Anticipated Discharge Date Admission Date: June 11, 2024 Subjective Patient seen and examined Labs reviewed Family including mother Karie and sister Jodie at bedside She is scheduled for EGD today Family feels patient is looking better today Physical Exam Physical Exam: General: no acute distress noted Psych: Awake and interactive HEENT: Anicteric sclera CVS: Regular rate and rhythm Lungs: Bilateral air entry with decreased breath sounds at the bases with poor inspiratory effort, no wheezing noted Abdomen: Soft, nontender Ext: No edema noted, contractures noted Results & Data Results & Data Vital Signs (Past 12 Hours) Vital Signs Temp Pulse Pulse Pulse Resp BP Pulse Ox 06/22/24 07:45 107 H 06/22/24 07:45 06/22/24 07:36 37.3 C 116 H 22 173/87 H 100 06/22/24 07:25 102 H 20 96 06/22/24 04:00 37.4 C 112 H 17 109/73 99 06/22/24 02:12 06/21/24 22:54 37.0 C 107 H 16 104/70 100 06/21/24 21:42 110 H O2 Del Method O2 Flow Rate 06/22/24 07:45 06/22/24 07:45 Oxymask 2 06/22/24 07:36 Oxymask 2 06/22/24 07:25 Oxymask 2 06/22/24 04:00 Oxymask 2.0 06/22/24 02:12 Oxymask 4 06/21/24 22:54 Oxymask 2.0 06/21/24 21:42 Laboratory Results Laboratory Results - last 24 hr 06/22/24 07:16 WBC 10.67 RBC 3.36 L Hgb 10.4 L Hct 32.1 L MCV 95.5 MCH 31.0 MCHC 32.4 RDW Std Deviation 57.1 H RDW Coeff of Christopher 16.4 H Plt Count 429 H MPV 9.3 L PT 13.5 H INR 1.3 H Sodium 141 Potassium 3.8 D Chloride 106 Carbon Dioxide 32 Anion Gap 3 BUN 5 L Creatinine 0.28 L Est Cr Clr Drug Dosing 157.9 eGFR 123.40 BUN/Creatinine Ratio 17.9 Glucose 109 H Calcium 7.9 L Magnesium 2.0 PG Care Time/CCT Total # of Minutes Spent Total Time Spent with Patient: Total time spent is greater than 50% in coordination of care (as documented) at patient's floor/unit and/or counseling patient: Coding Level of Care Code 79107 SUB INP/OBS CARE 2/35MIN Diagnoses Acute respiratory failure with hypoxia J96.01 Rhinovirus B34.8 Aspiration pneumonia J69.0 Aspiration pneumonia type: unspecified Laterality: right Lung location: unspecified part of lung Dysphagia R13.10 Cerebral palsy G80.9 Cerebral palsy type: unspecified type Hypothyroidism (acquired) E03.9 Esophageal dilatation K22.89 Acute metabolic encephalopathy G93.41 Urinary tract infection N30.00 Hematuria presence: without hematuria Urinary tract infection type: acute cystitis (3) Aspiration pneumonia Aspiration pneumonia type: unspecified Laterality: right Lung location: unspecified part of lung Qualified Code(s): J69.0 - Pneumonitis due to inhalation of food and vomit (5) Cerebral palsy Cerebral palsy type: unspecified type Qualified Code(s): G80.9 - Cerebral palsy, unspecified (9) Urinary tract infection Hematuria presence: without hematuria Urinary tract infection type: acute cystitis Qualified Code(s): N30.00 - Acute cystitis without hematuria
[2024-06-22] MEDS: SODIUM CHLORIDE 0.9% 500 ML IV SCH (15:04)
--- NOTE | 2024-06-22 15:34 | GI REPORT ---
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 Estimated Blood Loss: - Estimated blood loss: None. Procedure: - ASA Grade Assessment: III - A patient with severe systemic disease. - The egd scope was introduced through the mouth and advanced to the second part of the duodenum. - The upper GI endoscopy was performed with difficulty. - The patient tolerated the procedure well. Findings: - The examined esophagus was normal. - A 3 cm hiatal hernia was present. - Diffuse mild inflammation characterized by erythema was found in the entire examined stomach. - A few small semi-sessile polyps with no bleeding and no stigmata of recent bleeding were found in the gastric body. - The examined duodenum was normal. Impression: - Normal esophagus. - 3 cm hiatal hernia. - Gastritis, characterized by erythema. - A few gastric polyps. - Normal examined duodenum. - No specimens collected. Recommendation: Procedure Code(s): - 92947, Esophagogastroduodenoscopy, flexible, transoral; diagnostic, including collection of specimen(s) by brushing or washing, when performed (separate procedure) Diagnosis Code(s): - R93.3, Abnormal findings on diagnostic imaging of other parts of digestive tract - K44.9, Diaphragmatic hernia without obstruction or gangrene - K29.70, Gastritis, unspecified, without bleeding - K31.7, Polyp of stomach and duodenum CPT(R) - 2023 copyright [employer]. All Rights Reserved. The CPT codes, CCI edits and ICD codes generated are intended as suggestions and were generated based on input data. These codes are preliminary and upon manager of radiology review may be revised to meet current compliance and payer requirements. The provider is responsible for the final determination of appropriate codes, and modifiers. Alexis Patino MD This document has been electronically signed. Note Initiated:06/22/2024 Note Completed:06/22/2024 3:33 PM \\[email or web address]\Results\[email or web address]\[id number]
--- NOTE | 2024-06-22 15:35 | Communication Note ---
Date of Service: June 22, 2024 See Provation note for complete report. Summary: Pangastritis Scattered gastric polyps 3-4 cm hiatal hernia. Rec: NG discontinued Reevaluation by Speech Pathology at least after she is off of isolation as she may again be able to swallow. If unable to swallow or fails Speech Evaluation would get video barium swallow.
--- NOTE | 2024-06-22 15:52 | Anesthesiology Consultation ---
Date of Service June 22, 2024 Assessment & Plan ASA ASA3 Proposed Anesthesia Anesthesia Type: MAC Risk / Benefits Reviewed With: PT / POA / Parent / Guardian (Ms Lara's mother was present for consent), Accepts Plan and Informed Consent Obtained History Surgery Operation Date: 06/17/24 16:30 Proposed Procedures p Esophagogastroduodenoscopy Esther Santana MD Operation Date: 06/17/24 16:30 Proposed Procedures p Esophagogastroduodenoscopy with Gastric Tube Placement Esther Santana MD Operation Date: 06/22/24 16:55 Proposed Procedures p Esophagogastroduodenoscopy Carey Patino MD Height/Weight Height: 5 ft 1 in Weight: 46.8 kg Allergies Allergy/AdvReac Type Severity Reaction Status Date / Time amoxicillin Allergy Unknown ON MED LIST Verified 04/21/24 17:32 clavulanic acid Allergy Unknown ON MED LIST Verified 04/21/24 17:32 Medications Home Medications Medication Instructions Recorded Confirmed Last Taken baclofen 10 mg tablet 5 mg PO TID 11/14/19 06/11/24 04/21/24 08:00 baclofen 20 mg tablet 20 mg PO TID 11/14/19 06/11/24 04/21/24 08:00 fexofenadine 180 mg tablet 180 mg PO QAM 11/14/19 06/11/24 04/21/24 (Jayleen Allergy) fluticasone propionate 50 2 spray intranasal QAM 11/14/19 06/11/24 04/21/24 mcg/actuation nasal spray,suspension ketoconazole 2 % topical cream 1 applic topical BID 11/14/19 06/11/24 04/21/24 08:00 metronidazole 0.75 % topical cream 1 applic topical BID 11/14/19 06/11/24 04/21/24 08:00 omeprazole 40 mg capsule,delayed 40 mg PO BID 11/14/19 06/11/24 04/21/24 08:00 release paroxetine HCl 40 mg tablet 40 mg PO QAM 11/14/19 06/11/24 04/21/24 quetiapine 200 mg tablet 200 mg PO HS 11/14/19 06/11/24 04/20/24 quetiapine 25 mg tablet 12.5 mg PO .DAILY@1600 11/14/19 06/11/24 04/20/24 paroxetine HCl 20 mg tablet 20 mg PO QAM 06/28/20 06/11/24 04/21/24 estradiol 0.01% (0.1 mg/gram) 1 applic vaginal 2XWK 05/12/21 06/11/24 04/20/24 vaginal cream mirtazapine 7.5 mg tablet 7.5 mg PO HS 05/12/21 06/11/24 04/20/24 hydroxyzine HCl 25 mg tablet See Rx Instructions .Route .COMPLEX 05/17/21 06/11/24 04/21/24 08:00 polyethylene glycol 3350 17 17 g PO QAM 10/09/22 06/11/24 04/21/24 gram/dose oral powder (Miralax) chlorhexidine gluconate 0.12 % 1 applic PO 2XWK 05/21/23 06/11/24 04/16/24 mouthwash carbamide peroxide 6.5 % ear drops 5 drp otic (ear) WK 06/11/24 06/11/24 Unknown (Debrox) divalproex 125 mg tablet,delayed 750 mg PO BID 06/11/24 06/11/24 Unknown release levothyroxine 75 mcg tablet 50 mcg PO DAILY 06/11/24 06/11/24 Unknown starch (thickening) (Thick-It oral 0 ea PO DAILY 06/11/24 06/11/24 Unknown powder) Active Medications Generic Name Dose Route Start Last Admin Trade Name Freq PRN Reason Stop Dose Admin Acetaminophen 1,000 mg 06/15/24 21:00 06/22/24 09:23 Acetaminophen Susp 1000 Mg/31.2 Ml Udp NG 07/15/24 20:59 1,000 mg TID DOMINGUEZ Administration Acetylcysteine 5 ml 06/17/24 19:00 06/22/24 07:18 Acetylcysteine 20% Inhal Soln 4ml Dispensed By Resp. INH 07/17/24 18:59 5 ml Q12R DOMINGUEZ Administration Baclofen 20 mg 06/12/24 17:45 06/22/24 07:47 Baclofen 20 Mg Tab GT 07/12/24 17:44 20 mg TID@0800,1600,1999 DOMINGUEZ Administration Baclofen 5 mg 06/12/24 17:45 06/19/24 16:51 Baclofen 10 Mg Tab GT 07/12/24 17:44 5 mg TID@0800,1600,2000 DOMINGUEZ Administration Chlorhexidine Gluconate 0 ml 06/16/24 09:00 06/18/24 08:50 Chlorhexidine Gluconate 0.12% 480 Ml MT 07/16/24 08:59 480 ml TuTh@0900 DOMINGUEZ Administration Fexofenadine HCl 180 mg 06/12/24 09:00 06/22/24 09:22 Fexofenadine Hcl 180 Mg Tab PO 07/12/24 08:59 180 mg QAM DOMINGUEZ Administration Fluticasone Propionate 2 sprays 06/12/24 09:00 06/22/24 09:23 Fluticasone Propionate Na Spr 16 Gm Btl NA 07/12/24 08:59 2 sprays QAM DOMINGUEZ Administration Guaifenesin 400 mg 06/13/24 15:11 06/22/24 09:22 Guaifenesin Sugar Free 200 Mg/10 Ml Udc NG 07/13/24 15:10 400 mg TID DOMINGUEZ Administration Heparin Sodium (Porcine) 5,000 units 06/12/24 09:00 06/22/24 09:28 Heparin Sod 5,000 Unit/0.5 Ml Vial SQ 07/12/24 08:59 5,000 units Q12 DOMINGUEZ Administration Hydroxyzine HCl 25 mg 06/12/24 21:00 06/18/24 21:55 Hydroxyzine Hcl 25 Mg Tab NG 07/12/24 20:59 25 mg HS DOMINGUEZ Administration Hydroxyzine HCl 12.5 mg 06/12/24 17:45 06/19/24 16:56 Hydroxyzine Hcl 25 Mg Tab NG 07/12/24 17:44 12.5 mg DAILY@0800,1600 DOMINGUEZ Administration Valproic Acid 312 mg/ Dextrose 53.12 mls @ 55 mls/hr 06/11/24 23:00 06/22/24 12:00 IV 07/11/24 22:59 Infused Q6H DOMINGUEZ Infusion Pantoprazole Sodium 40 mg/ 10 mls @ 5 mls/min 06/11/24 22:30 06/22/24 09:28 Syringe IV 07/11/24 22:29 5 mls/min BID DOMINGUEZ Administration Metronidazole 500 mg in 100 mls @ 100 mls/hr 06/17/24 09:15 06/22/24 10:28 Flagyl IV 06/24/24 09:14 Infused Q8H DOMINGUEZ Infusion Protocol Cefepime HCl 2,000 mg in 20 mls @ 5 mls/min 06/18/24 14:00 06/22/24 05:40 Maxipime 2000mg IV 06/24/24 13:59 5 mls/min Q8H DOMINGUEZ Administration Protocol Sodium Chloride 500 mls @ 15 mls/hr 06/22/24 07:30 06/22/24 15:05 Nss IV 06/23/24 07:29 Infused .Q24H DOMINGUEZ Infusion Ipratropium [place] 0.5 mg 06/17/24 11:00 06/22/24 14:04 Ipratropium [place] Neb Soln 0.02% 0.5mg/2.5ml Vial NEB 07/17/24 10:59 0.5 mg QIDR DOMINGUEZ Administration Levalbuterol HCl 0.63 mg 06/17/24 11:00 06/22/24 14:04 Levalbuterol Hcl 0.63 Mg/3 Ml Neb NEB 07/17/24 10:59 0.63 mg QIDR DOMINGUEZ Administration Protocol Levothyroxine Sodium 50 mcg 06/12/24 17:45 06/22/24 05:41 Levothyroxine Sodium 50 Mcg Tablet NG 07/12/24 17:44 50 mcg DAILYBB DOMINGUEZ Administration Mirtazapine 7.5 mg 06/12/24 21:00 06/21/24 19:44 Mirtazapine Tab 15 Mg Tab NG 07/12/24 20:59 7.5 mg HS DOMINGUEZ Administration Ondansetron HCl 4 mg 06/11/24 20:30 06/14/24 07:47 Ondansetron Inj 2 Mg/Ml 2 Ml Vial IV 07/11/24 20:29 4 mg Q6H PRN Administration Nausea Pantoprazole Sodium 40 mg 06/11/24 21:00 06/11/24 22:50 Pantoprazole 40 Mg Tab PO 07/11/24 20:59 Not Given BID DOMINGUEZ Paroxetine HCl 60 mg 06/12/24 17:45 06/22/24 09:22 Paroxetine Hcl 20 Mg Tab NG 07/12/24 17:44 60 mg QAM DOMINGUEZ Administration Quetiapine Fumarate 12.5 mg 06/12/24 17:45 06/19/24 16:51 Quetiapine Fumarate 25 Mg Tablet NG 07/12/24 17:44 12.5 mg DAILY@1600 DOMINGUEZ Administration Quetiapine Fumarate 100 mg 06/21/24 21:00 06/21/24 19:45 Quetiapine Fumarate 100 Mg Tablet PO 07/21/24 20:59 100 mg HS DOMINGUEZ Administration Sodium Chloride 4 ml 06/17/24 13:00 06/22/24 07:18 Sodium Chlor 7% 4 Ml Neb NEB 07/17/24 12:59 4 ml BIDR DOMINGUEZ Administration Sterile Water 150 ml 06/20/24 12:00 06/22/24 12:32 Tube Feeding Water Flush NG 07/20/24 11:59 Not Given Q6 DOMINGUEZ NPO Date Last Intake of Fluids: 06/21/24 Time Last Intake of Fluids: 23:59 Last Intake of Fluids Comment: tube feedings Date Last Intake of Solids: 06/21/24 Time Last Intake of Solids: 23:59 Past Medical History Medical History Cerebral palsy COVID-19 Vomiting and diarrhea History of kidney stones Refuses to eat Dehydration Abdominal pain Intractable vomiting Colitis Exercise / Class Metabolic Activity IV < 2 Limit ADL/Bedbound Past Family History Family History Father Diabetes Other Asthma Cancer Hypertension No family history of adverse response to anesthesia No family history of bleeding disorder Past Surgical History Surgical History Hx of colonoscopy Surgical history unknown Past Anesthesia History No Hx of Anesthesia Complications and No Family Hx of Anesthesia Complications History of PONV No Hx of PONV and No Hx of Motion Sickness Social History Smoking Status: Never smoker Do You Dip or Chew Tobacco: No Hx Alcohol Use: No Hx Substance Use: No Physical Exam Vital Signs Last Vital Signs Temp 37.3 C 06/22/24 15:38 Pulse 112 H 06/22/24 15:38 Resp 20 06/22/24 15:38 BP 147/88 H 06/22/24 15:38 Pulse Ox 98 06/22/24 15:38 O2 Del Method Oxymask 06/22/24 15:38 O2 Flow Rate 2 06/22/24 15:38 FiO2 90 06/19/24 23:25 Constitutional no acute distress ENMT Mouth: no dentition abnormality Thyromental Distance: > or= 3.5 Finger Breadths Mallampati Class: Other (pt uncooperative, unable to assess) Neck normal visual inspection Respiratory normal respiratory effort; no respiratory distress Auscultation: lungs clear to auscultation bilaterally and + rhonchi (minimal occasional rhonchi) Cardiovascular Rate/Rhythm: regular rate and regular rhythm Heart Sounds: no murmur Musculoskeletal Extremities: + limited ROM of extremities Neurologic moves all extremities Psychiatric Orientation: alert; + not oriented x 3 Testing Laboratory Results 06/22/24 07:16 06/22/24 07:16 PT 13.5 Seconds (9.0-12.0) H 06/22/24 07:16 INR 1.3 (0.9-1.1) H 06/22/24 07:16 Urine Color Dark Yellow 06/16/24 12:36 Urine Appearance Turbid (Clear) A 06/16/24 12:36 Urine pH 6.5 (4.5-7.5) 06/16/24 12:36 Ur Specific [place] 1.029 (1.000-1.030) 06/16/24 12:36 Urine Protein 2+ (Negative) H 06/16/24 12:36 Urine Glucose (UA) Negative (Negative) 06/16/24 12:36 Urine Ketones Trace (Negative) H 06/16/24 12:36 Urine Nitrite Positive (Negative) A 06/16/24 12:36 Ur Leukocyte Esterase 3+ (Negative) H 06/16/24 12:36 Urine WBC (Auto) >50 /hpf (0-5) H 06/16/24 12:36 Urine RBC (Auto) >20 /hpf (0-2) H 06/16/24 12:36 U Hyaline Cast (Auto) 0-2 /lpf (0-2) 06/16/24 12:36 U Epithel Cells (Auto) 0-2 /hpf (0-2) 06/16/24 12:36 Urine Bacteria (Auto) 4+ (None Seen) H 06/16/24 12:36 06/16/24 12:36 Urine Culture - Final Urine,Straight Cath Escherichia coli Day of Procedure Evaluation. Date of Surgery June 22, 2024 Height/Weight Height: 5 ft 1 in Weight: 46.8 kg Vital Signs Last Vital Signs Temp 37.3 C 06/22/24 15:38 Pulse 112 H 06/22/24 15:38 Resp 20 06/22/24 15:38 BP 147/88 H 06/22/24 15:38 Pulse Ox 98 06/22/24 15:38 O2 Del Method Oxymask 06/22/24 15:38 O2 Flow Rate 2 06/22/24 15:38 FiO2 90 06/19/24 23:25 Allergies Allergy/AdvReac Type Severity Reaction Status Date / Time amoxicillin Allergy Unknown ON MED LIST Verified 04/21/24 17:32 clavulanic acid Allergy Unknown ON MED LIST Verified 04/21/24 17:32 Medications Home Medications Medication Instructions Recorded Confirmed Last Taken baclofen 10 mg tablet 5 mg PO TID 11/14/19 06/11/24 04/21/24 08:00 baclofen 20 mg tablet 20 mg PO TID 11/14/19 06/11/24 04/21/24 08:00 fexofenadine 180 mg tablet 180 mg PO QAM 11/14/19 06/11/24 04/21/24 (Jayleen Allergy) fluticasone propionate 50 2 spray intranasal QAM 11/14/19 06/11/24 04/21/24 mcg/actuation nasal spray,suspension ketoconazole 2 % topical cream 1 applic topical BID 11/14/19 06/11/24 04/21/24 08:00 metronidazole 0.75 % topical cream 1 applic topical BID 11/14/19 06/11/24 04/21/24 08:00 omeprazole 40 mg capsule,delayed 40 mg PO BID 11/14/19 06/11/24 04/21/24 08:00 release paroxetine HCl 40 mg tablet 40 mg PO QAM 11/14/19 06/11/24 04/21/24 quetiapine 200 mg tablet 200 mg PO HS 11/14/19 06/11/24 04/20/24 quetiapine 25 mg tablet 12.5 mg PO .DAILY@1600 11/14/19 06/11/24 04/20/24 paroxetine HCl 20 mg tablet 20 mg PO QAM 06/28/20 06/11/24 04/21/24 estradiol 0.01% (0.1 mg/gram) 1 applic vaginal 2XWK 05/12/21 06/11/24 04/20/24 vaginal cream mirtazapine 7.5 mg tablet 7.5 mg PO HS 05/12/21 06/11/24 04/20/24 hydroxyzine HCl 25 mg tablet See Rx Instructions .Route .COMPLEX 05/17/21 06/11/24 04/21/24 08:00 polyethylene glycol 3350 17 17 g PO QAM 10/09/22 06/11/24 04/21/24 gram/dose oral powder (Miralax) chlorhexidine gluconate 0.12 % 1 applic PO 2XWK 05/21/23 06/11/24 04/16/24 mouthwash carbamide peroxide 6.5 % ear drops 5 drp otic (ear) WK 06/11/24 06/11/24 Unknown (Debrox) divalproex 125 mg tablet,delayed 750 mg PO BID 06/11/24 06/11/24 Unknown release levothyroxine 75 mcg tablet 50 mcg PO DAILY 06/11/24 06/11/24 Unknown starch (thickening) (Thick-It oral 0 ea PO DAILY 06/11/24 06/11/24 Unknown powder) Active Medications Generic Name Dose Route Start Last Admin Trade Name Freq PRN Reason Stop Dose Admin Acetaminophen 1,000 mg 06/15/24 21:00 06/22/24 09:23 Acetaminophen Susp 1000 Mg/31.2 Ml Udp NG 07/15/24 20:59 1,000 mg TID DOMINGUEZ Administration Acetylcysteine 5 ml 06/17/24 19:00 06/22/24 07:18 Acetylcysteine 20% Inhal Soln 4ml Dispensed By Resp. INH 07/17/24 18:59 5 ml Q12R DOMINGUEZ Administration Baclofen 20 mg 06/12/24 17:45 06/22/24 07:47 Baclofen 20 Mg Tab GT 07/12/24 17:44 20 mg TID@0800,1599,1999 DOMINGUEZ Administration Baclofen 5 mg 06/12/24 17:45 06/19/24 16:51 Baclofen 10 Mg Tab GT 07/12/24 17:44 5 mg TID@0800,1600,1999 DOMINGUEZ Administration Chlorhexidine Gluconate 0 ml 06/16/24 09:00 06/18/24 08:50 Chlorhexidine Gluconate 0.12% 480 Ml MT 07/16/24 08:59 480 ml TuTh@0900 DOMINGUEZ Administration Fexofenadine HCl 180 mg 06/12/24 09:00 06/22/24 09:22 Fexofenadine Hcl 180 Mg Tab PO 07/12/24 08:59 180 mg QAM DOMINGUEZ Administration Fluticasone Propionate 2 sprays 06/12/24 09:00 06/22/24 09:23 Fluticasone Propionate Na Spr 16 Gm Btl NA 07/12/24 08:59 2 sprays QAM DOMINGUEZ Administration Guaifenesin 400 mg 06/13/24 15:11 06/22/24 09:22 Guaifenesin Sugar Free 200 Mg/10 Ml Udc NG 07/13/24 15:10 400 mg TID DOMINGUEZ Administration Heparin Sodium (Porcine) 5,000 units 06/12/24 09:00 06/22/24 09:28 Heparin Sod 5,000 Unit/0.5 Ml Vial SQ 07/12/24 08:59 5,000 units Q12 DOMINGUEZ Administration Hydroxyzine HCl 25 mg 06/12/24 21:00 06/18/24 21:55 Hydroxyzine Hcl 25 Mg Tab NG 07/12/24 20:59 25 mg HS DOMINGUEZ Administration Hydroxyzine HCl 12.5 mg 06/12/24 17:45 06/19/24 16:56 Hydroxyzine Hcl 25 Mg Tab NG 07/12/24 17:44 12.5 mg DAILY@0800,1600 DOMINGUEZ Administration Valproic Acid 312 mg/ Dextrose 53.12 mls @ 55 mls/hr 06/11/24 23:00 06/22/24 12:00 IV 07/11/24 22:59 Infused Q6H DOMINGUEZ Infusion Pantoprazole Sodium 40 mg/ 10 mls @ 5 mls/min 06/11/24 22:30 06/22/24 09:28 Syringe IV 07/11/24 22:29 5 mls/min BID DOMINGUEZ Administration Metronidazole 500 mg in 100 mls @ 100 mls/hr 06/17/24 09:15 06/22/24 10:28 Flagyl IV 06/24/24 09:14 Infused Q8H DOMINGUEZ Infusion Protocol Cefepime HCl 2,000 mg in 20 mls @ 5 mls/min 06/18/24 14:00 06/22/24 05:40 Maxipime 2000mg IV 06/24/24 13:59 5 mls/min Q8H DOMINGUEZ Administration Protocol Sodium Chloride 500 mls @ 15 mls/hr 06/22/24 07:30 06/22/24 15:05 Nss IV 06/23/24 07:29 Infused .Q24H DOMINGUEZ Infusion Ipratropium [place] 0.5 mg 06/17/24 11:00 06/22/24 14:04 Ipratropium [place] Neb Soln 0.02% 0.5mg/2.5ml Vial NEB 07/17/24 10:59 0.5 mg QIDR DOMINGUEZ Administration Levalbuterol HCl 0.63 mg 06/17/24 11:00 06/22/24 14:04 Levalbuterol Hcl 0.63 Mg/3 Ml Neb NEB 07/17/24 10:59 0.63 mg QIDR DOMINGUEZ Administration Protocol Levothyroxine Sodium 50 mcg 06/12/24 17:45 06/22/24 05:41 Levothyroxine Sodium 50 Mcg Tablet NG 07/12/24 17:44 50 mcg DAILYBB DOMINGUEZ Administration Mirtazapine 7.5 mg 06/12/24 21:00 06/21/24 19:44 Mirtazapine Tab 15 Mg Tab NG 07/12/24 20:59 7.5 mg HS DOMINGUEZ Administration Ondansetron HCl 4 mg 06/11/24 20:30 06/14/24 07:47 Ondansetron Inj 2 Mg/Ml 2 Ml Vial IV 07/11/24 20:29 4 mg Q6H PRN Administration Nausea Pantoprazole Sodium 40 mg 06/11/24 21:00 06/11/24 22:50 Pantoprazole 40 Mg Tab PO 07/11/24 20:59 Not Given BID DOMINGUEZ Paroxetine HCl 60 mg 06/12/24 17:45 06/22/24 09:22 Paroxetine Hcl 20 Mg Tab NG 07/12/24 17:44 60 mg QAM DOMINGUEZ Administration Quetiapine Fumarate 12.5 mg 06/12/24 17:45 06/19/24 16:51 Quetiapine Fumarate 25 Mg Tablet NG 07/12/24 17:44 12.5 mg DAILY@1600 DOMINGUEZ Administration Quetiapine Fumarate 100 mg 06/21/24 21:00 06/21/24 19:45 Quetiapine Fumarate 100 Mg Tablet PO 07/21/24 20:59 100 mg HS DOMINGUEZ Administration Sodium Chloride 4 ml 06/17/24 13:00 06/22/24 07:18 Sodium Chlor 7% 4 Ml Neb NEB 07/17/24 12:59 4 ml BIDR DOMINGUEZ Administration Sterile Water 150 ml 06/20/24 12:00 06/22/24 12:32 Tube Feeding Water Flush NG 07/20/24 11:59 Not Given Q6 DOMINGUEZ Past Anesthesia History No Hx of Anesthesia Complications and No Family Hx of Anesthesia Complications History of PONV No Hx of PONV and No Hx of Motion Sickness NPO Date Last Intake of Fluids: 06/21/24 Time Last Intake of Fluids: 23:59 Last Intake of Fluids Comment: tube feedings Date Last Intake of Solids: 06/21/24 Time Last Intake of Solids: 23:59 Home Medications Home Medications Medication Instructions Recorded Confirmed Last Taken baclofen 10 mg tablet 5 mg PO TID 11/14/19 06/11/24 04/21/24 08:00 baclofen 20 mg tablet 20 mg PO TID 11/14/19 06/11/24 04/21/24 08:00 fexofenadine 180 mg tablet 180 mg PO QAM 11/14/19 06/11/24 04/21/24 (Jayleen Allergy) fluticasone propionate 50 2 spray intranasal QAM 11/14/19 06/11/24 04/21/24 mcg/actuation nasal spray,suspension ketoconazole 2 % topical cream 1 applic topical BID 11/14/19 06/11/24 04/21/24 08:00 metronidazole 0.75 % topical cream 1 applic topical BID 11/14/19 06/11/24 04/21/24 08:00 omeprazole 40 mg capsule,delayed 40 mg PO BID 11/14/19 06/11/24 04/21/24 08:00 release paroxetine HCl 40 mg tablet 40 mg PO QAM 11/14/19 06/11/24 04/21/24 quetiapine 200 mg tablet 200 mg PO HS 11/14/19 06/11/24 04/20/24 quetiapine 25 mg tablet 12.5 mg PO .DAILY@1600 11/14/19 06/11/24 04/20/24 paroxetine HCl 20 mg tablet 20 mg PO QAM 06/28/20 06/11/24 04/21/24 estradiol 0.01% (0.1 mg/gram) 1 applic vaginal 2XWK 05/12/21 06/11/24 04/20/24 vaginal cream mirtazapine 7.5 mg tablet 7.5 mg PO HS 05/12/21 06/11/24 04/20/24 hydroxyzine HCl 25 mg tablet See Rx Instructions .Route .COMPLEX 05/17/21 06/11/24 04/21/24 08:00 polyethylene glycol 3350 17 17 g PO QAM 10/09/22 06/11/24 04/21/24 gram/dose oral powder (Miralax) chlorhexidine gluconate 0.12 % 1 applic PO 2XWK 05/21/23 06/11/24 04/16/24 mouthwash carbamide peroxide 6.5 % ear drops 5 drp otic (ear) WK 06/11/24 06/11/24 Unknown (Debrox) divalproex 125 mg tablet,delayed 750 mg PO BID 06/11/24 06/11/24 Unknown release levothyroxine 75 mcg tablet 50 mcg PO DAILY 06/11/24 06/11/24 Unknown starch (thickening) (Thick-It oral 0 ea PO DAILY 06/11/24 06/11/24 Unknown powder) Active Medications Generic Name Dose Route Start Last Admin Trade Name Jordan PRN Reason Stop Dose Admin Acetaminophen 1,000 mg 06/15/24 21:00 06/22/24 09:23 Acetaminophen Susp 1000 Mg/31.2 Ml Udp NG 07/15/24 20:59 1,000 mg TID DOMINGUEZ Administration Acetylcysteine 5 ml 06/17/24 19:00 06/22/24 07:18 Acetylcysteine 20% Inhal Soln 4ml Dispensed By Resp. INH 07/17/24 18:59 5 ml Q12R DOMINGUEZ Administration Baclofen 20 mg 06/12/24 17:45 06/22/24 07:47 Baclofen 20 Mg Tab GT 07/12/24 17:44 20 mg TID@0800,1599,1999 DOMINGUEZ Administration Baclofen 5 mg 06/12/24 17:45 06/19/24 16:51 Baclofen 10 Mg Tab GT 07/12/24 17:44 5 mg TID@0800,1599,1999 DOMINGUEZ Administration Chlorhexidine Gluconate 0 ml 06/16/24 09:00 06/18/24 08:50 Chlorhexidine Gluconate 0.12% 480 Ml MT 07/16/24 08:59 480 ml TuTh@0900 DOMINGUEZ Administration Fexofenadine HCl 180 mg 06/12/24 09:00 06/22/24 09:22 Fexofenadine Hcl 180 Mg Tab PO 07/12/24 08:59 180 mg QAM DOMINGUEZ Administration Fluticasone Propionate 2 sprays 06/12/24 09:00 06/22/24 09:23 Fluticasone Propionate Na Spr 16 Gm Btl NA 07/12/24 08:59 2 sprays QAM DOMINGUEZ Administration Guaifenesin 400 mg 06/13/24 15:11 06/22/24 09:22 Guaifenesin Sugar Free 200 Mg/10 Ml Udc NG 07/13/24 15:10 400 mg TID DOMINGUEZ Administration Heparin Sodium (Porcine) 5,000 units 06/12/24 09:00 06/22/24 09:28 Heparin Sod 5,000 Unit/0.5 Ml Vial SQ 07/12/24 08:59 5,000 units Q12 DOIMNGUEZ Administration Hydroxyzine HCl 25 mg 06/12/24 21:00 06/18/24 21:55 Hydroxyzine Hcl 25 Mg Tab NG 07/12/24 20:59 25 mg HS DOMINGUEZ Administration Hydroxyzine HCl 12.5 mg 06/12/24 17:45 06/19/24 16:56 Hydroxyzine Hcl 25 Mg Tab NG 07/12/24 17:44 12.5 mg DAILY@0800,1600 DOMINGUEZ Administration Valproic Acid 312 mg/ Dextrose 53.12 mls @ 55 mls/hr 06/11/24 23:00 06/22/24 12:00 IV 07/11/24 22:59 Infused Q6H DOMINGUEZ Infusion Pantoprazole Sodium 40 mg/ 10 mls @ 5 mls/min 06/11/24 22:30 06/22/24 09:28 Syringe IV 07/11/24 22:29 5 mls/min BID DOMINGUEZ Administration Metronidazole 500 mg in 100 mls @ 100 mls/hr 06/17/24 09:15 06/22/24 10:28 Flagyl IV 06/24/24 09:14 Infused Q8H DOMINGUEZ Infusion Protocol Cefepime HCl 2,000 mg in 20 mls @ 5 mls/min 06/18/24 14:00 06/22/24 05:40 Maxipime 2000mg IV 06/24/24 13:59 5 mls/min Q8H DOMINGUEZ Administration Protocol Sodium Chloride 500 mls @ 15 mls/hr 06/22/24 07:30 06/22/24 15:05 Nss IV 06/23/24 07:29 Infused .Q24H DOMINGUEZ Infusion Ipratropium [place] 0.5 mg 06/17/24 11:00 06/22/24 14:04 Ipratropium [place] Neb Soln 0.02% 0.5mg/2.5ml Vial NEB 07/17/24 10:59 0.5 mg QIDR DOMINGUEZ Administration Levalbuterol HCl 0.63 mg 06/17/24 11:00 06/22/24 14:04 Levalbuterol Hcl 0.63 Mg/3 Ml Neb NEB 07/17/24 10:59 0.63 mg QIDR DOMINGUEZ Administration Protocol Levothyroxine Sodium 50 mcg 06/12/24 17:45 06/22/24 05:41 Levothyroxine Sodium 50 Mcg Tablet NG 07/12/24 17:44 50 mcg DAILYBB DOMINGUEZ Administration Mirtazapine 7.5 mg 06/12/24 21:00 06/21/24 19:44 Mirtazapine Tab 15 Mg Tab NG 07/12/24 20:59 7.5 mg HS DOMINGUEZ Administration Ondansetron HCl 4 mg 06/11/24 20:30 06/14/24 07:47 Ondansetron Inj 2 Mg/Ml 2 Ml Vial IV 07/11/24 20:29 4 mg Q6H PRN Administration Nausea Pantoprazole Sodium 40 mg 06/11/24 21:00 06/11/24 22:50 Pantoprazole 40 Mg Tab PO 07/11/24 20:59 Not Given BID DOMINGUEZ Paroxetine HCl 60 mg 06/12/24 17:45 06/22/24 09:22 Paroxetine Hcl 20 Mg Tab NG 07/12/24 17:44 60 mg QAM DOMINGUEZ Administration Quetiapine Fumarate 12.5 mg 06/12/24 17:45 06/19/24 16:51 Quetiapine Fumarate 25 Mg Tablet NG 07/12/24 17:44 12.5 mg DAILY@1600 DOMINGUEZ Administration Quetiapine Fumarate 100 mg 06/21/24 21:00 06/21/24 19:45 Quetiapine Fumarate 100 Mg Tablet PO 07/21/24 20:59 100 mg HS DOMINGUEZ Administration Sodium Chloride 4 ml 06/17/24 13:00 06/22/24 07:18 Sodium Chlor 7% 4 Ml Neb NEB 07/17/24 12:59 4 ml BIDR DOMINGUEZ Administration Sterile Water 150 ml 06/20/24 12:00 06/22/24 12:32 Tube Feeding Water Flush NG 07/20/24 11:59 Not Given Q6 DOMINGUEZ Exercise / Class Metabolic Activity Metabolic Activity: IV < 2 Limit ADL/Bedbound Physical Exam Constitutional: no acute distress Mouth: no dentition abnormality Thyromental Distance: > or= 3.5 Finger Breadths Mallampati Class: Other (pt uncooperative, unable to assess) Neck: + visual inspection normal Respiratory: + respiratory effort normal, + clear to auscultation bilaterally and + rhonchi (minimal occasional rhonchi); no respiratory distress Cardiovascular: + regular rate and + regular rhythm; no murmur Musculoskeletal: + limited ROM of extremities Neurologic: + moves all extremities Psychiatric: + alert; no oriented x 3 Additional Comments: Pt with cerebral palsy and is contracted with minimal mobility, and minimal ability to communicate ASA ASA3 Proposed Anesthesia Proposed Anesthesia: MAC Risk / Benefits Reviewed With: PT / POA / Parent / Guardian (Ms Lara's mother was present for consent), Accepts Plan and Informed Consent Obtained
--- NOTE | 2024-06-22 16:13 | Anesthesiology Progress Note ---
Date of Service June 22, 2024 Anesthesia Post Procedure Vital Signs Vital Signs: Temp Pulse Pulse Pulse Resp BP BP 06/22/24 16:08 111 H 20 152/96 H 06/22/24 15:53 113 H 20 133/94 06/22/24 15:38 37.3 C 112 H 20 147/88 H 06/22/24 14:59 37.3 C 114 H 20 142/100 H 06/22/24 14:06 112 H 20 06/22/24 11:17 114 H 20 06/22/24 11:14 37.1 C 114 H 20 137/91 06/22/24 07:45 107 H 06/22/24 07:45 06/22/24 07:36 37.3 C 116 H 22 173/87 H 06/22/24 07:25 102 H 20 06/22/24 04:00 37.4 C 112 H 17 109/73 06/22/24 02:12 06/21/24 22:54 37.0 C 107 H 16 104/70 06/21/24 21:42 110 H 06/21/24 19:50 109 H 18 06/21/24 17:37 37.2 C 109 H 16 130/80 Pulse Ox O2 Del Method O2 Flow Rate 06/22/24 16:08 100 Oxymask 2 06/22/24 15:53 100 Oxymask 2 06/22/24 15:38 98 Oxymask 2 06/22/24 14:59 98 Oxymask 2 06/22/24 14:06 96 Oxymask 2 06/22/24 11:17 96 Oxymask 2 06/22/24 11:14 96 Oxymask 2 06/22/24 07:45 06/22/24 07:45 Oxymask 2 06/22/24 07:36 100 Oxymask 2 06/22/24 07:25 96 Oxymask 2 06/22/24 04:00 99 Oxymask 2.0 06/22/24 02:12 Oxymask 4 06/21/24 22:54 100 Oxymask 2.0 06/21/24 21:42 06/21/24 19:50 96 Oxymask 2 06/21/24 17:37 98 Oxymask 3 Pain Intensity Throat: Pain Intensity: 4 Transfer of Care Handoff Completed per policy Notes Mental Status: alert / awake / arousable and participated in evaluation Nausea / Vomiting: adequately controlled Pain: adequately controlled Airway Patency, RR, SpO2: stable & adequate BP & HR: stable & adequate Hydration State: stable & adequate Anesthetic Complications: no major complications apparent and Pt Satisfied with anesthetic care
[2024-06-22] MEDS: LIDOCAINE 2% 2 ML VIAL/AMP(20MG/ML) INFIL ONE (16:37)
[2024-06-22] MEDS: PROPOFOL IV EMULSION 10 MG/ML 20 ML VIAL IV ONE (17:22)
--- NOTE | 2024-06-22 20:25 | Surgery Consultation ---
Date of Consultation June 22, 2024 Assessment & Plan (1) Esophageal dilatation: I evaluated the patient in room 459. I discussed with the patient's mother and sister who are present at bedside Is unclear if the patient has actually had any aspiration events. As noted by GIs most recent note consideration may be given to having speech reevaluate the patient to determine if she can adequately swallow It is also unclear if the patient will be able to maintain adequate caloric nutrition via oral intake as she has not been eating well lately We will need to discuss with the primary service on 06/23/2024 to determine if any further evaluation is to be undertaken We also need to discuss further with the family to determine if they wish to pursue a feeding tube in order for patient to have adequate nutrition Additional recommendations will be forthcoming based on further discussion with the primary service as well as further discussion with the family History of Present Illness Reason for Consultation: Evaluation for feeding J-tube Attending Physician: Chicho Calle MD History of Present Illness This is a 59-year-old female with an underlying history of cerebral palsy. Patient was nonverbal could not provide any meaningful information. The historical information was obtained from review of chart as well as discussion with nursing staff and the patient's family who was present at bedside. This patient has been admitted to [facility] since 06/11/2024. The patient currently resides at [facility] where the staff at this facility reportedly noted that the patient had some difficulty swallowing over the past several days prior to admission has not been eating very well. In add ition they noted that her abdomen appeared somewhat more distended although she was having bowel movements. According to the family there is been no witnessed episodes of aspiration. The patient earlier today underwent an EGD. This EGD showed the patient had normal-appearing esophagus but had a 3 cm hiatal hernia as well as gastritis and some gastric polyps. Her duodenum was noted to be normal. The performing rigger chief has noted that the patient should be reevaluated by speech pathology to further assess her ability to swallow and determine if she will be able to take any oral intake. Of note, the family has noted that the patient has not been cooperative with eating. General surgery has there been consulted for consideration of placing a feeding J-tube. It is noteworthy to mention that the patient has not had any prior abdominal surgeries. Most recent labs patient has had blood from today where CBC revealed white blood cell count was normal. Her hemoglobin and hematocrit were 10.4 and 32.1. Platelet count was 4 29,000. Most recent INR was from today which was 1.3. Chemistry profile showed sodium and potassium were both normal. Her BUN and creatinine were both not elevated. Most recent chest x-ray was from 06/21/2024 that showed pulmonary vascular congestion and a right basilar opacity concerning for atelectasisthere are no consolidations to suggest pneumonia. The patient has had previous x-rays most recently on 06/19/2024 where patient was noted to have some dilatation of her esophagus. This dilatation of esophagus was also noted on a chest CT from 06/16/2024. At the time of my interview the patient was resting comfortably in bed she did not appear to be in any distress. Allergies Allergy/AdvReac Type Severity Reaction Status Date / Time amoxicillin Allergy Unknown ON MED LIST Verified 04/21/24 17:32 clavulanic acid Allergy Unknown ON MED LIST Verified 04/21/24 17:32 Home Medications Medication Instructions Recorded Confirmed Type baclofen 10 mg tablet 5 mg PO TID 11/14/19 06/11/24 History baclofen 20 mg tablet 20 mg PO TID 11/14/19 06/11/24 History fexofenadine 180 mg tablet 180 mg PO QAM 11/14/19 06/11/24 History (Jayleen Allergy) fluticasone propionate 50 2 spray intranasal QAM 11/14/19 06/11/24 History mcg/actuation nasal spray,suspension ketoconazole 2 % topical cream 1 applic topical BID 11/14/19 06/11/24 History metronidazole 0.75 % topical cream 1 applic topical BID 11/14/19 06/11/24 History omeprazole 40 mg capsule,delayed 40 mg PO BID 11/14/19 06/11/24 History release paroxetine HCl 40 mg tablet 40 mg PO QAM 11/14/19 06/11/24 History quetiapine 200 mg tablet 200 mg PO HS 11/14/19 06/11/24 History quetiapine 25 mg tablet 12.5 mg PO .DAILY@1600 11/14/19 06/11/24 History paroxetine HCl 20 mg tablet 20 mg PO QAM 06/28/20 06/11/24 History estradiol 0.01% (0.1 mg/gram) 1 applic vaginal 2XWK 05/12/21 06/11/24 History vaginal cream mirtazapine 7.5 mg tablet 7.5 mg PO HS 05/12/21 06/11/24 History hydroxyzine HCl 25 mg tablet See Rx Instructions .Route .COMPLEX 05/17/21 06/11/24 History polyethylene glycol 3350 17 17 g PO QAM 10/09/22 06/11/24 History gram/dose oral powder (Miralax) chlorhexidine gluconate 0.12 % 1 applic PO 2XWK 05/21/23 06/11/24 History mouthwash carbamide peroxide 6.5 % ear drops 5 drp otic (ear) WK 06/11/24 06/11/24 History (Debrox) divalproex 125 mg tablet,delayed 750 mg PO BID 06/11/24 06/11/24 History release levothyroxine 75 mcg tablet 50 mcg PO DAILY 06/11/24 06/11/24 History starch (thickening) (Thick-It oral 0 ea PO DAILY 06/11/24 06/11/24 History powder) Patient History Medical History Cerebral palsy COVID-19 Vomiting and diarrhea History of kidney stones Refuses to eat Dehydration Abdominal pain Intractable vomiting Colitis Surgical History Hx of colonoscopy Surgical history unknown Family History Father Diabetes Other Asthma Cancer Hypertension No family history of adverse response to anesthesia No family history of bleeding disorder Social History Smoking Status: Never smoker Second Hand Exposure: No; Do You Dip or Chew Tobacco: No; Hx Alcohol Use: No Hx Substance Use: No Preferred Language: Serbian Communication Ability: Impaired Communication Ability Comment: mild intellectual Disability Computer Operations Technician Required: No Beliefs That Will Affect Care: None Current Living Situation: Personal Care Facility Current Living Situation Comment: [facility] current occupational status: disabled Feels Safe at Home: Yes Diet: regular during the past year weight has: decreased > 10 lbs Assistive Devices: Hospital Bed, Mechanical Lift and Scooter/Electric Scooter Review of Systems Review of Systems: Unobtainable due to cognitive status Physical Exam Constitutional: no acute distress Eyes: no conjunctival abnormality ENMT: Ears: no external ear abnormality Neck: trachea midline Respiratory: normal respiratory effort; no respiratory distress and no labored breathing Cardiovascular: Rate/Rhythm: regular rate and regular rhythm Gastrointestinal (Abdomen): Abdomen is distended but soft. Palpation did not appear to elicit a painful response. There did not appear to be any rebound tenderness or guarding. Skin: no rashes Neurologic: Patient has history of cerebral palsy making neurologic exam difficult to perform Results & Data Vital Signs (Past 12 Hours) Vital Signs Temp Pulse Pulse Pulse Resp BP BP 06/22/24 16:55 115 H 22 153/89 H 06/22/24 16:25 37.4 C 110 H 20 150/91 H 06/22/24 16:08 111 H 20 152/96 H 06/22/24 16:00 108 H 06/22/24 15:53 113 H 20 133/94 06/22/24 15:38 37.3 C 112 H 20 147/88 H 06/22/24 14:59 37.3 C 114 H 20 142/100 H 06/22/24 14:06 112 H 20 06/22/24 11:17 114 H 20 06/22/24 11:14 37.1 C 114 H 20 137/91 Pulse Ox O2 Del Method O2 Flow Rate 06/22/24 16:55 95 High Flow Nasal Cannula 2 06/22/24 16:25 95 High Flow Nasal Cannula 2 06/22/24 16:08 100 Oxymask 2 06/22/24 16:00 06/22/24 15:53 100 Oxymask 2 06/22/24 15:38 98 Oxymask 2 06/22/24 14:59 98 Oxymask 2 06/22/24 14:06 96 Oxymask 2 06/22/24 11:17 96 Oxymask 2 06/22/24 11:14 96 Oxymask 2 PG Care Time/CCT Total # of Minutes Spent Total Time Spent with Patient: Total time spent is greater than 50% in coordination of care (as documented) at patient's floor/unit and/or counseling patient: Coding Level of Care Code 62623 OFFICE CONSULT LVL M Diagnoses Esophageal dilatation K22.89
[2024-06-22] MEDS: ACETAMINOPHEN 1,000 MG/100 ML VIAL IV PRN (21:48)
[2024-06-23] MEDS: BACLOFEN 10 MG TAB PO SCH (09:57)
[2024-06-23] MEDS: LEVOTHYROXINE SODIUM 50 MCG TABLET PO SCH (09:59)
[2024-06-23] MEDS: BACLOFEN 20 MG TAB PO SCH (10:00)
[2024-06-23] MEDS: PARoxetine HCL 20 MG TAB PO SCH (10:14)
--- NOTE | 2024-06-23 10:21 | Hospitalist Progress Note ---
Date of Service June 23, 2024 Assessment & Plan (1) Acute respiratory failure with hypoxia: (2) Rhinovirus: (3) Aspiration pneumonia: (4) Dysphagia: (5) Cerebral palsy: (6) Hypothyroidism (acquired): (7) Esophageal dilatation: (8) Acute metabolic encephalopathy: (9) Urinary tract infection: Plan 59-year-old female with past medical history of cerebral palsy living in [facility], dysphagia, hypothyroidism presents with worsening dysphagia with poor oral intake on and off for few weeks #Dysphagia #Distended esophagus Worsening over the last few weeks GI saw the patient initially had plan for an EGD with PEG tube placement Patient then spiked a fever and ended up with a urinary tract infection and aspiration pneumonia GI has postponed the procedure, they have also discussed with IR and they are not able to provide PEG placement locally. GI is recommended transfer to a tertiary care facility for PEG placement Patient subsequently had an EGD on 06/22/2024 which showed normal esophagus, 3 cm hiatal hernia, gastritis, few gastric polyps, normal examined duodenum. No specimens were taken After communication with WINCHMAN/CRANE OPERATOR, GI recommended a J-tube for feeding versus a PEG tube. GI recommended surgery consult for J-tube insertion Patient was seen by surgery team of Dr. Sandoval: Family is interested in pursuing J-tube feedings: Awaiting recommendations from Dr. Sandoval today Continue Protonix 40 mg IV twice daily Head CT from 06/19/2024 was unremarkable # Aspiration pneumonia #UTI with E. coli # Acute diastolic congestive heart failure with preserved EF of 60% #Rhinovirus CT of the chest showed infiltrates greatest in the medial right lower lobe. Pulmonology saw the patient during hospital stay She received IV Lasix intermittently per pulmonology with improvement in her vascular congestion Echo showed left ventricular systolic function is normal, mild concentric LVH, grade 1 diastolic dysfunction with EF of 60 to 65% As per pulmonology, continue 7% hypertonic saline with nebulizers As per pulmonology, they believe [facility]ist and will help in the long-term and pulmonology has consulted case management regarding this. Continue IV antibiotics: Cefepime plus Flagyl (day 67) #Acute metabolic encephalopathy, likely secondary to aspiration pneumonia and UTI #Cerebral palsy Depakote level elevated at 149 on admission Repeat Depakote level from 06/17/24 is 81 Continue reduced dose of IV Depakote: Switch to tablets after J-tube insertion Continue baclofen, Seroquel, Paxil, mirtazapine and hydroxyzine #Hypothyroidism Continue levothyroxine 50 mcg daily CODE STATUS: DNR/DNI DVT prophylaxis: Heparin 5000 units subcutaneous twice daily Care plan discussed with nursing staff, speech therapy and mother Karie ([phone]) and sister Jodie updated at bedside Admission and Anticipated Discharge Date Admission Date: June 11, 2024 Subjective Patient seen and examined Mother Karie and sister Jodie at bedside Patient's caregiver from [employer] also at bedside Speech therapist at bedside: Speech therapy spoke with patient's family at length and appears that patient does not have dysphagia but more likely she is refusing to eat. Patient's caregiver Tameka who is known her for 4 years also endorsed that since September 2023 patient has been on and off refusing to eat and has has worsened over the last few weeks. Patient seems to have lost interest in food. Options were reviewed with family including comfort feeds and transitioning to hospice with letting nature take its course versus J-tube feeding (PEG not recommended as risk of aspiration is high) with oral comfort feeds if patient desires to eat in addition to J-tube feeds. Family would like to pursue the J-tube feed option: Awaiting surgery follow-up Patient is able to's take oral medications currently with applesauce with lots of coaxing from family. Mentation is at baseline Physical Exam Physical Exam: General: no acute distress noted Psych: Awake and interactive HEENT: Anicteric sclera CVS: Regular rate and rhythm Lungs: Bilateral air entry with decreased breath sounds at the bases with poor inspiratory effort, no wheezing noted Abdomen: Soft, nontender Ext: No edema noted, contractures noted Results & Data Results & Data Vital Signs (Past 12 Hours) Vital Signs Temp Pulse Pulse Resp BP Pulse Ox O2 Del Method 06/23/24 07:15 107 H 06/23/24 07:15 Room Air 06/23/24 03:24 37.0 C 108 H 20 187/97 H 97 Room Air 06/22/24 22:43 37.2 C 104 H 18 167/93 H 93 Room Air 06/22/24 22:24 107 H PG Care Time/CCT Total # of Minutes Spent Total Time Spent with Patient: Total time spent is greater than 50% in coordination of care (as documented) at patient's floor/unit and/or counseling patient: Coding Level of Care Code 00623 SUB INP/OBS CARE 35MIN Diagnoses Acute respiratory failure with hypoxia J96.01 Rhinovirus B34.8 Aspiration pneumonia J69.0 Aspiration pneumonia type: unspecified Laterality: right Lung location: unspecified part of lung Dysphagia R13.10 Cerebral palsy G80.9 Cerebral palsy type: unspecified type Hypothyroidism (acquired) E03.9 Esophageal dilatation K22.89 Acute metabolic encephalopathy G93.41 Urinary tract infection N30.00 Hematuria presence: without hematuria Urinary tract infection type: acute cystitis (3) Aspiration pneumonia Aspiration pneumonia type: unspecified Laterality: right Lung location: unspecified part of lung Qualified Code(s): J69.0 - Pneumonitis due to inhalation of food and vomit (5) Cerebral palsy Cerebral palsy type: unspecified type Qualified Code(s): G80.9 - Cerebral palsy, unspecified (9) Urinary tract infection Hematuria presence: without hematuria Urinary tract infection type: acute cystitis Qualified Code(s): N30.00 - Acute cystitis without hematuria
--- NOTE | 2024-06-23 15:09 | Communication Note ---
<Statement entered by Alexis Patino MD - 06/23/24 15:23> Discussed with patient and family. Reviewed Speech Path note. She has aspiration pneumonia but apparently not from oropharyngeal dysfunction. Therefore, J - tube or PEG/PEJ would be more appropriate. I do not perform either procedure and surgery has been consulted. IP GI Service will sign off. Date of Service: June 23, 2024 Pt was seen, chart reviewed. Family at bedside. Notes surgery to consider J- tube. Per family, has been taking meds orally - but has been reluctant to do so. Agree w/ j-tube to reduce aspiration associated with feeds. Recall GI as needed. Thank you for allowing us to participate in the care of this patient. Please call with any acute changes, questions or concerns. Please see addendum below with additional recommendation from my supervising physician.
[2024-06-23] MEDS: QUEtiapine FUMARATE 25 MG TABLET PO SCH (15:27)
[2024-06-23] MEDS: hydrOXYzine HCl 25 MG TAB PO SCH ×2 (15:28→20:05)
--- NOTE | 2024-06-23 15:36 | Surgery Progress Note ---
Date of Service June 23, 2024 Assessment & Plan (1) Cerebral palsy: Plan: pt with progression of dysphagia. wtloss. unable to sustain herself. we discussed jejunal feeding tube since risk of aspiration would be high with gastrostomy tube. discussed options and risks ( bleeding/infection/injury to an organ/leakage etc...). questions answered. they would like to proceed. will plan placement of feeding tube tomorrow. (2) Weight loss: (3) Dysphagia: (4) Dehydration: (5) Nausea & vomiting: Admission and Anticipated Discharge Date Admission Date: June 11, 2024 Subjective pt seen. family and caregiver at bedside. Physical Exam Physical Exam: alert. but non-verbal. nad abd: soft. nt. nd. ext: contracted. Results & Data Vital Signs (Past 12 Hours) Vital Signs Temp Pulse Pulse Resp BP Pulse Ox O2 Del Method 06/23/24 15:21 104 H 20 95 Room Air 06/23/24 11:43 37.2 C 108 H 17 151/98 H 94 Room Air 06/23/24 11:00 104 H 20 97 Room Air 06/23/24 07:15 107 H 06/23/24 07:15 Room Air PG Care Time/CCT Total # of Minutes Spent Total Time Spent with Patient: Total time spent is greater than 50% in coordination of care (as documented) at patient's floor/unit and/or counseling patient: Coding Level of Care Code 00395 SUB INP/OBS CARE 1/25MIN Diagnoses Cerebral palsy G80.9 Cerebral palsy type: unspecified type Weight loss R63.4 Dysphagia R13.10 Dehydration E86.0 Nausea & vomiting R11.2 (1) Cerebral palsy Cerebral palsy type: unspecified type Qualified Code(s): G80.9 - Cerebral palsy, unspecified
[2024-06-23] MEDS ORDERED: ACETAMINOPHEN SUSP 1000 MG/31.2 ML UDP PO PRN (17:05)
[2024-06-23] MEDS ORDERED: guaiFENesin SUGAR FREE 200 MG/10 ML UDC PO PRN (17:06)
[2024-06-23] MEDS: MIRTAZAPINE TAB 15 MG TAB PO SCH (19:47)
[2024-06-23] MEDS: QUEtiapine FUMARATE 200 MG TAB PO SCH (19:51)
[2024-06-24] MEDS: ALBUMIN 25% 25 GM/100 ML VIAL IV ONE (03:24)
[2024-06-24] MEDS: LACTATED RINGER'S 250 ML IV ONE (03:40)
[2024-06-24 06:29] LABS: Hematocrit (blood only) 28.1 % (37.0-47.0); Hemoglobin 9.5 g/dl (12.0-16.0); Mean Corpuscular Hemoglobin 31.1 pg (25.0-34.0); Mean Corpuscular Hgb Conc 33.8 g/dL (32.0-36.0); Mean Corpuscular Volume 92.1 fL (80.0-100.0); Mean Platelet Volume 9.2 fL (9.4-12.4); Nucleated RBC # (auto) 0.03 K/uL (0.00-0.12); Nucleated RBC % (auto) 0.2 %; Platelet Count 350 K/uL (130-400); RDW Coefficient of Variation 17.3 % (11.5-14.5); Red Blood Count 3.05 M/uL (4.20-5.40); White Blood Count 12.83 K/ul (4.8-10.8)
[2024-06-24 07:12] LABS: BUN Creatinine Ratio 31.4 (10-20); Magnesium 1.8 mg/dl (1.7-2.4); Potassium 3.6 mmol/L (3.5-5.1)
--- NOTE | 2024-06-24 07:57 | Anesthesiology Consultation ---
Date of Service June 24, 2024 Assessment & Plan Chart Review Chart Review: Acceptable Risk for Surgery and Patient NOT seen in Pre Admission Testing Consults Requested none ASA ASA4 Proposed Anesthesia Anesthesia Type: General History Surgery Operation Date: 06/17/24 16:30 Proposed Procedures p Esophagogastroduodenoscopy Esther Santana MD Operation Date: 06/17/24 16:30 Proposed Procedures p Esophagogastroduodenoscopy with Gastric Tube Placement Esther Santana MD Operation Date: 06/22/24 16:55 Proposed Procedures p Esophagogastroduodenoscopy Carey - Alexis Patino MD Operation Date: 06/24/24 08:35 Proposed Procedures p Open J-tube Insertion - Cornel Sandoval DO Height/Weight Height: 5 ft 1 in Weight: 48 kg Allergies Allergy/AdvReac Type Severity Reaction Status Date / Time amoxicillin Allergy Unknown ON MED LIST Verified 04/21/24 17:32 clavulanic acid Allergy Unknown ON MED LIST Verified 04/21/24 17:32 Medications Home Medications Medication Instructions Recorded Confirmed Last Taken baclofen 10 mg tablet 5 mg PO TID 11/14/19 06/11/24 04/21/24 08:00 baclofen 20 mg tablet 20 mg PO TID 11/14/19 06/11/24 04/21/24 08:00 fexofenadine 180 mg tablet 180 mg PO QAM 11/14/19 06/11/24 04/21/24 (Jayleen Allergy) fluticasone propionate 50 2 spray intranasal [facility] 11/14/19 06/11/24 04/21/24 mcg/actuation nasal spray,suspension ketoconazole 2 % topical cream 1 applic topical BID 11/14/19 06/11/24 04/21/24 08:00 metronidazole 0.75 % topical cream 1 applic topical BID 11/14/19 06/11/24 04/21/24 08:00 omeprazole 40 mg capsule,delayed 40 mg PO BID 11/14/19 06/11/24 04/21/24 08:00 release paroxetine HCl 40 mg tablet 40 mg PO QAM 11/14/19 06/11/24 04/21/24 quetiapine 200 mg tablet 200 mg PO 11/14/19 06/11/24 04/20/24 quetiapine 25 mg tablet 12.5 mg PO .DAILY@1600 11/14/19 06/11/24 04/20/24 paroxetine HCl 20 mg tablet 20 mg PO QAM 06/28/20 06/11/24 04/21/24 estradiol 0.01% (0.1 mg/gram) 1 applic vaginal 2XWK 05/12/21 06/11/24 04/20/24 vaginal cream mirtazapine 7.5 mg tablet 7.5 mg PO HS 05/12/21 06/11/24 04/20/24 hydroxyzine HCl 25 mg tablet See Rx Instructions .Route .COMPLEX 05/17/21 06/11/24 04/21/24 08:00 polyethylene glycol 3350 17 17 g PO QAM 10/09/22 06/11/24 04/21/24 gram/dose oral powder (Miralax) chlorhexidine gluconate 0.12 % 1 applic PO 2XWK 05/21/23 06/11/24 04/16/24 mouthwash carbamide peroxide 6.5 % ear drops 5 drp otic (ear) WK 06/11/24 06/11/24 Unknown (Debrox) divalproex 125 mg tablet,delayed 750 mg PO BID 06/11/24 06/11/24 Unknown release levothyroxine 75 mcg tablet 50 mcg PO DAILY 06/11/24 06/11/24 Unknown starch (thickening) (Thick-It oral 0 ea PO DAILY 06/11/24 06/11/24 Unknown powder) Active Medications Generic Name Dose Route Start Last Admin Trade Name Jordan PRN Reason Stop Dose Admin Acetylcysteine 5 ml 06/17/24 19:00 06/24/24 07:12 Acetylcysteine 20% Inhal Soln 4ml Dispensed By Resp. INH 07/17/24 18:59 5 ml Q12R DOMINGUEZ Administration Baclofen 20 mg 06/23/24 09:45 06/23/24 19:49 Baclofen 20 Mg Tab PO 07/23/24 09:44 20 mg TID@0800,1599,1999 DOMINGUEZ Administration Baclofen 5 mg 06/23/24 09:45 06/23/24 19:48 Baclofen 10 Mg Tab PO 07/23/24 09:44 5 mg TID@0800,1599,1999 DOMINGUEZ Administration Chlorhexidine Gluconate 0 ml 06/16/24 09:00 06/23/24 08:17 Chlorhexidine Gluconate 0.12% 480 Ml MT 07/16/24 08:59 480 ml TuTh@0900 DOMINGUEZ Administration Fexofenadine HCl 180 mg 06/12/24 09:00 06/23/24 09:56 Fexofenadine Hcl 180 Mg Tab PO 07/12/24 08:59 180 mg QAM DOMINGUEZ Administration Fluticasone Propionate 2 sprays 06/12/24 09:00 06/24/24 07:46 Fluticasone Propionate Na Spr 16 Gm Btl NA 07/12/24 08:59 2 sprays QAM DOMINGUEZ Administration Heparin Sodium (Porcine) 5,000 units 06/12/24 09:00 06/23/24 19:45 Heparin Sod 5,000 Unit/0.5 Ml Vial SQ 07/12/24 08:59 5,000 units Q12 DOMINGUEZ Administration Hydroxyzine HCl 25 mg 06/23/24 21:00 06/23/24 20:05 Hydroxyzine Hcl 25 Mg Tab PO 07/23/24 20:59 Not Given HS DOMINGUEZ Hydroxyzine HCl 12.5 mg 06/23/24 16:00 06/23/24 15:28 Hydroxyzine Hcl 25 Mg Tab PO 07/23/24 15:59 12.5 mg DAILY@0800,1600 DOMINGUEZ Administration Valproic Acid 312 mg/ Dextrose 53.12 mls @ 55 mls/hr 06/11/24 23:00 06/24/24 06:06 IV 07/11/24 22:59 Infused Q6H DOMINGUEZ Infusion Pantoprazole Sodium 40 mg/ 10 mls @ 5 mls/min 06/11/24 22:30 06/24/24 07:46 Syringe IV 07/11/24 22:29 5 mls/min BID DOMINGUEZ Administration Metronidazole 500 mg in 100 mls @ 100 mls/hr 06/17/24 09:15 06/24/24 00:54 Flagyl IV 06/24/24 23:59 Infused Q8H DOMINGUEZ Infusion Protocol Cefepime HCl 2,000 mg in 20 mls @ 5 mls/min 06/18/24 14:00 06/24/24 04:57 Maxipime 2000mg IV 06/24/24 23:59 5 mls/min Q8H DOMINGUEZ Administration Protocol Ipratropium [place] 0.5 mg 06/17/24 11:00 06/24/24 07:12 Ipratropium [place] Neb Soln 0.02% 0.5mg/2.5ml Vial NEB 07/17/24 10:59 0.5 mg QIDR DOMINGUEZ Administration Levalbuterol HCl 0.63 mg 06/17/24 11:00 06/24/24 07:11 Levalbuterol Hcl 0.63 Mg/3 Ml Neb NEB 07/17/24 10:59 0.63 mg QIDR DOMINGUEZ Administration Protocol Levothyroxine Sodium 50 mcg 06/23/24 09:45 06/24/24 04:57 Levothyroxine Sodium 50 Mcg Tablet PO 07/23/24 09:44 Not Given DAILYBB DOMINGUEZ Mirtazapine 7.5 mg 06/23/24 21:00 06/23/24 19:47 Mirtazapine Tab 15 Mg Tab PO 07/23/24 20:59 7.5 mg HS DOMINGUEZ Administration Ondansetron HCl 4 mg 06/11/24 20:30 06/14/24 07:47 Ondansetron Inj 2 Mg/Ml 2 Ml Vial IV 07/11/24 20:29 4 mg Q6H PRN Administration Nausea Pantoprazole Sodium 40 mg 06/11/24 21:00 06/11/24 22:50 Pantoprazole 40 Mg Tab PO 07/11/24 20:59 Not Given BID DOMINGUEZ Paroxetine HCl 60 mg 06/23/24 09:45 06/23/24 10:14 Paroxetine Hcl 20 Mg Tab PO 07/23/24 09:44 60 mg QAM DOMINGUEZ Administration Quetiapine Fumarate 12.5 mg 06/23/24 16:00 06/23/24 15:27 Quetiapine Fumarate 25 Mg Tablet PO 07/23/24 15:59 12.5 mg DAILY@1600 DOMINGUEZ Administration Quetiapine Fumarate 200 mg 06/23/24 21:00 06/23/24 19:51 Quetiapine Fumarate 200 Mg Tab PO 07/23/24 20:59 200 mg HS DOMINGUEZ Administration Sodium Chloride 4 ml 06/17/24 13:00 06/24/24 07:12 Sodium Chlor 7% 4 Ml Neb NEB 07/17/24 12:59 4 ml BIDR DOMINGUEZ Administration Sterile Water 150 ml 06/20/24 12:00 06/24/24 04:56 Tube Feeding Water Flush NG 07/20/24 11:59 Not Given Q6 DOMINGUEZ NPO Last Intake of Fluids Comment: tube feedings Past Medical History Medical History Cerebral palsy COVID-19 Vomiting and diarrhea History of kidney stones Refuses to eat Dehydration Abdominal pain Intractable vomiting Colitis Exercise / Class Metabolic Activity IV < 2 Limit ADL/Bedbound Past Family History Family History Father Diabetes Other Asthma Cancer Hypertension No family history of adverse response to anesthesia No family history of bleeding disorder Past Surgical History Surgical History Hx of colonoscopy Surgical history unknown Past Anesthesia History No Hx of Anesthesia Complications and No Family Hx of Anesthesia Complications History of PONV No Hx of PONV and No Hx of Motion Sickness Social History Smoking Status: Never smoker Do You Dip or Chew Tobacco: No Hx Alcohol Use: No Hx Substance Use: No Physical Exam Vital Signs Last Vital Signs Temp 37.1 C 06/24/24 03:05 Pulse 105 H 06/24/24 07:12 Resp 18 06/24/24 07:12 BP 108/70 06/24/24 03:05 Pulse Ox 94 06/24/24 07:12 O2 Del Method Room Air 06/24/24 07:12 O2 Flow Rate 4 06/22/24 20:00 FiO2 90 06/19/24 23:25 Testing Laboratory Results 06/24/24 06:16 06/24/24 06:16 PT 13.5 Seconds (9.0-12.0) H 06/22/24 07:16 INR 1.3 (0.9-1.1) H 06/22/24 07:16 Urine Color Dark Yellow 06/16/24 12:36 Urine Appearance Turbid (Clear) A 06/16/24 12:36 Urine pH 6.5 (4.5-7.5) 06/16/24 12:36 Ur Specific Chavies 1.029 (1.000-1.030) 06/16/24 12:36 Urine Protein 2+ (Negative) H 06/16/24 12:36 Urine Glucose (UA) Negative (Negative) 06/16/24 12:36 Urine Ketones Trace (Negative) H 06/16/24 12:36 Urine Nitrite Positive (Negative) A 06/16/24 12:36 Ur Leukocyte Esterase 3+ (Negative) H 06/16/24 12:36 Urine WBC (Auto) >50 /hpf (0-5) H 06/16/24 12:36 Urine RBC (Auto) >20 /hpf (0-2) H 06/16/24 12:36 U Hyaline Cast (Auto) 0-2 /lpf (0-2) 06/16/24 12:36 U Epithel Cells (Auto) 0-2 /hpf (0-2) 06/16/24 12:36 Urine Bacteria (Auto) 4+ (None Seen) H 06/16/24 12:36 06/16/24 12:36 Urine Culture - Final Urine,Straight Cath Escherichia coli Electrocardiogram Date: 06/11/24 Findings: + ST @ (@ 101;? septal infarct,age ?;NS T wave abnl) Chest X-Ray Date: 06/21/24 Findings: + atelectasis (right basilar) and + pulmonary vascular congestion (interval improvement) Echocardiogram Date: 06/20/24 EF: 60% LV Function: normal RWMA: + none Other Findings: + LVH (mild) and + diastolic dysfunction (Grade 1) Valvular Disease: + no significant valvular disease
--- NOTE | 2024-06-24 08:19 | History & Physical Bridge Note ---
Date of Service June 24, 2024 History & Physical Bridge Note I have examined the patient, reviewed the History & Physical and in the interval since the performance of the History & Physical I have noted the following changes of clinical significance: no changes noted
[2024-06-24] MEDS ORDERED: NALOXONE HCL 0.4 MG/1 ML VIAL/CARP IV PRN (09:11)
[2024-06-24] MEDS ORDERED: ePHEDrine sulfate 50 MG/ML AMP IV PRN (09:11)
[2024-06-24] MEDS ORDERED: FLUMAZENIL 0.1 MG/1 ML 10 ML VIAL IV PRN (09:11)
[2024-06-24] MEDS ORDERED: PROMETHAZINE HCL 6.25 MG in SODIUM CHLORIDE 0.9% 50 ML IV PRN (09:11)
[2024-06-24] MEDS ORDERED: fentaNYL citrate PF 100 MCG/2 ML VIAL IV PRN (09:11)
[2024-06-24] MEDS ORDERED: ONDANSETRON INJ 2 MG/ML 2 ML VIAL IV PRN (09:11)
[2024-06-24] MEDS ORDERED: ATROPINE SULFATE 0.1 MG/ML 10ML SYR IV PRN (09:11)
[2024-06-24] MEDS ORDERED: LABETALOL HCL IV 5 MG/ML 20ML IV PRN (09:11)
[2024-06-24] MEDS ORDERED: ACETAMINOPHEN 1000 MG/100 ML IV IV ONE (09:23)
--- NOTE | 2024-06-24 10:14 | Operative Report ---
PG Post Operative Report Pre & Post Diagnosis Operation Date: 06/24/24 08:35 Pre-Op Diagnosis: Dysphagia. Post-Op Diagnosis: Dysphagia. I identified the patient and participated in the time-out.: Yes Procedure Operation Date: 06/24/24 08:35 Actual Procedures p Open J-tube Insertion - Cornel Sandoval DO Surgeon Cornel Sandoval DO Police Manager tish Hicks Estimated Blood Loss 5 Findings Consistent with Post-Op Diagnosis Specimens none Description of Procedure After informed consent was obtained the patient was taken to the operating room and placed in supine position. After successful intubation the abdomen was sterilely prepped and draped in usual fashion. I began by making a small 2 inch upper midline incision. This was carried down through the soft tissue using cautery. The anterior fascia was also opened using cautery. Blunt finger penetration was used to enter the peritoneum and the incision was opened to both poles. Once in the abdomen I was able to find the transverse colon which was somewhat dilated. I was able to retract this superiorly and locate jejunum. I followed this proximally to the ligament of Treitz. I then counted down about 8 to 10 inches from the ligament of Treitz and delivered this portion of the jejunum out through the incision. 3-[address] was [address] to [address] a double pursestring. We then opened a jejunostomy tube and checked the balloon for leakage. I then cut it to appropriate size. A separate stab incision was made in the left upper quadrant. We were able to deliver the jejunostomy tube through this. I then created an enterotomy in the middle of the 2 pursestrings. I was able to advance the jejunostomy tube down through the jejunum pushing it distally until the balloon was in the lumen. We then inflated the balloon to 3 cc with saline. I then secured both pursestring devices. 3-0 silk was also then used to create a Witzel tunnel. We then tested the tube with saline. There was no evidence of any leakage and it flushed easily. We then delivered the small bowel back into the abdominal cavity. We gently pulled on the catheter/balloon until the small bowel was up against the anterior abdominal wall. I secured it superiorly and inferiorly using 2-0 silk to the fascia of the abdominal wall. We then closed the mini laparotomy fascia using 0 PDS in ru nning fashion. Soft tissue was irrigated and closed in 2 layers using 3-0 Vicryl deep layers and 4 Monocryl for skin. Marcaine with epinephrine was injected around for postoperative analgesia. Benzoin Steri-Strips gauze and tape were used as a dressing. The patient was awakened extubated and transferred recovery in stable condition. My physician child care assistant was present for the entire case was instrumental in providing exposure for my procedure assisting with tube placement wound closure and dressing placement. I attest to the content of the Intraoperative Record and any orders documented therein. Any exceptions are noted below.
[2024-06-24] MEDS: ALBUTEROL 0.083% NEBU SOLN 3 ML VIAL ONE (10:32)
[2024-06-24] MEDS: ALBUTEROL 0.083% NEBU SOLN 3 ML VIAL NEB STA (10:32)
--- NOTE | 2024-06-24 11:18 | Anesthesiology Progress Note ---
Date of Service June 24, 2024 Anesthesia Post Procedure Vital Signs Vital Signs: Temp Pulse Pulse Pulse Resp BP Pulse Ox 06/24/24 11:15 113 H 16 140/91 97 06/24/24 11:05 114 H 21 137/94 98 06/24/24 10:55 115 H 20 145/91 H 95 06/24/24 10:45 114 H 18 142/94 H 95 06/24/24 10:35 113 H 20 154/96 H 97 06/24/24 10:25 112 H 21 134/92 96 06/24/24 10:17 36.7 C 114 H 16 152/97 H 100 06/24/24 08:04 36.6 C 116 H 22 182/92 H 96 06/24/24 07:45 101 H 06/24/24 07:12 105 H 18 94 06/24/24 03:05 37.1 C 131 H 18 108/70 97 06/23/24 22:39 37 C 116 H 14 112/73 95 06/23/24 21:57 108 H 06/23/24 20:33 108 H 18 96 06/23/24 20:30 06/23/24 19:57 37.2 C 106 H 16 144/87 H 97 06/23/24 16:11 36.8 C 115 H 18 149/98 H 95 06/23/24 15:21 104 H 20 95 06/23/24 13:04 109 H 06/23/24 11:50 06/23/24 11:43 37.2 C 108 H 17 151/98 H 94 O2 Del Method O2 Flow Rate 06/24/24 11:15 Nasal Cannula 3 06/24/24 11:05 Oxymask 7 06/24/24 10:55 Oxymask 9 06/24/24 10:45 Oxymask 9 06/24/24 10:35 Nebulizer 7 06/24/24 10:25 Non-rebreather 15 06/24/24 10:17 Non-rebreather 15 06/24/24 08:04 Room Air 06/24/24 07:45 06/24/24 07:12 Room Air 06/24/24 03:05 Room Air 06/23/24 22:39 Room Air 06/23/24 21:57 06/23/24 20:33 Room Air 06/23/24 20:30 Room Air 06/23/24 19:57 Room Air 06/23/24 16:11 Room Air 06/23/24 15:21 Room Air 06/23/24 13:04 06/23/24 11:50 Room Air 06/23/24 11:43 Room Air Pain Intensity Throat: Pain Intensity: 4 Transfer of Care Handoff Completed per policy Notes Mental Status: alert / awake / arousable Patient Amnestic to Procedure: Yes Nausea / Vomiting: adequately controlled Pain: adequately controlled Airway Patency, RR, SpO2: stable & adequate BP & HR: stable & adequate Hydration State: stable & adequate Anesthetic Complications: no major complications apparent
[2024-06-24] MEDS ORDERED: ALBUTEROL HFA 8 GM INHALER INH ONE (11:37)
[2024-06-24] MEDS ORDERED: MIDAZOLAM HCL 1 MG/ML 2ML VIAL ONE (11:37)
[2024-06-24] MEDS ORDERED: ROCURONIUM BROMIDE 10 MG/ML 5 ML VIAL IV ONE (11:37)
[2024-06-24] MEDS ORDERED: ONDANSETRON INJ 2 MG/ML 2 ML VIAL ONE (11:37)
[2024-06-24] MEDS ORDERED: DEXAMETHASONE SOD INJ 4 MG/ML VIAL ONE (11:37)
[2024-06-24] MEDS ORDERED: PROPOFOL IV EMULSION 10 MG/ML 20 ML VIAL IV ONE (11:37)
[2024-06-24] MEDS ORDERED: LIDOCAINE 2% 2 ML VIAL/AMP(20MG/ML) INFIL ONE (11:37)
[2024-06-24] MEDS ORDERED: fentaNYL citrate PF 100 MCG/2 ML VIAL ONE (11:37)
--- NOTE | 2024-06-24 12:32 | Hospitalist Progress Note ---
Date of Service June 24, 2024 Assessment & Plan (1) Acute respiratory failure with hypoxia: (2) Rhinovirus: (3) Aspiration pneumonia: (4) Dysphagia: (5) Cerebral palsy: (6) Hypothyroidism (acquired): (7) Esophageal dilatation: (8) Acute metabolic encephalopathy: (9) Urinary tract infection: Plan 59-year-old female with past medical history of cerebral palsy living in [facility], dysphagia, hypothyroidism presents with worsening dysphagia with poor oral intake on and off for few weeks #Dysphagia #Distended esophagus Worsening over the last few weeks GI saw the patient initially had plan for an EGD with PEG tube placement Patient then spiked a fever and ended up with a urinary tract infection and aspiration pneumonia GI has postponed the procedure, they have also discussed with IR and they are not able to provide PEG placement locally. GI is recommended transfer to a tertiary care facility for PEG placement Patient subsequently had an EGD on 06/22/2024 which showed normal esophagus, 3 cm hiatal hernia, gastritis, few gastric polyps, normal examined duodenum. No specimens were taken After communication with [employer], GI recommended a J-tube for feeding versus a PEG tube. GI recommended surgery consult for J-tube insertion Patient was seen by surgery team of Dr. Sandoval: Patient had J-tube inserted today 06/24/[address] Sandoval via secure chat: Okay to use J-tube for feedings and medications today itself Nutrition consulted for starting J-tube feedings As per speech therapy: Patient can also continue with oral food intake if desired Continue Protonix 40 mg IV twice daily and switch to her home oral dose of omeprazole on discharge Head CT from 06/19/2024 was unremarkable # Aspiration pneumonia #UTI with E. coli # Acute diastolic congestive heart failure with preserved EF of 60% #Rhinovirus CT of the chest showed infiltrates greatest in the medial right lower lobe. Pulmonology saw the patient during hospital stay She received IV Lasix intermittently per pulmonology with improvement in her vascular congestion Echo showed left ventricular systolic function is normal, mild concentric LVH, grade 1 diastolic dysfunction with EF of 60 to 65% As per pulmonology, continue 7% hypertonic saline with nebulizers As per pulmonology, they believe [facility] and will help in the long-term and pulmonology has consulted case management regarding this. Continue IV antibiotics: Cefepime plus Flagyl (day 03/22): Stop antibiotics after tonight's dose as she would have completed 7 days of IV antibiotics #Acute metabolic encephalopathy, likely secondary to aspiration pneumonia and UTI #Cerebral palsy Depakote level elevated at 149 on admission Repeat Depakote level from 06/17/24 is 81 Patient is receiving IV Depakote: I spoke with the pharmacist to switch her to Depakote suspension 650 mg twice daily via J-tube and stop IV Continue baclofen, Seroquel, Paxil, mirtazapine and hydroxyzine: Switch to J- tube #Hypothyroidism Continue levothyroxine 50 mcg daily CODE STATUS: DNR/DNI DVT prophylaxis: Heparin 5000 units subcutaneous twice daily [facility] nursing to train staff at [facility] for J-tube feedings once patient is tolerating J-tube feedings and is at goal rate likely in the next 48 hours Care plan discussed with nursing staff, speech therapy and mother Karie ([phone]) and sister Jodie updated at bedside Admission and Anticipated Discharge Date Admission Date: June 11, 2024 Subjective Patient seen and examined Patient's mother Karie and sister Jodie at bedside Patient's caregiver Tameka also at bedside Patient had J-tube insertion this morning She appears comfortable Physical Exam Physical Exam: General: no acute distress noted Psych: Awake and interactive HEENT: Anicteric sclera CVS: Regular rate and rhythm Lungs: Bilateral air entry with decreased breath sounds at the bases with poor inspiratory effort, no wheezing noted Abdomen: Soft, nontender, J-tube in place, dressing clean and dry Ext: No edema noted, contractures noted Results & Data Results & Data Vital Signs (Past 12 Hours) Vital Signs Temp Pulse Pulse Pulse Pulse Resp BP 06/24/24 11:39 37.4 C 95 H 18 135/82 06/24/24 11:25 117 H 20 154/80 H 06/24/24 11:15 113 H 16 140/91 06/24/24 11:05 114 H 21 137/94 06/24/24 10:55 115 H 20 145/91 H 06/24/24 10:45 114 H 18 142/94 H 06/24/24 10:35 113 H 20 154/96 H 06/24/24 10:25 112 H 21 134/92 06/24/24 10:17 36.7 C 114 H 16 152/97 H 06/24/24 08:04 36.6 C 116 H 22 182/92 H 06/24/24 07:45 101 H 06/24/24 07:12 105 H 18 06/24/24 03:05 37.1 C 131 H 18 108/70 Pulse Ox O2 Del Method O2 Flow Rate 06/24/24 11:39 95 Nasal Cannula 4 06/24/24 11:25 98 Nasal Cannula 4 06/24/24 11:15 97 Nasal Cannula 3 06/24/24 11:05 98 Oxymask 7 06/24/24 10:55 95 Oxymask 9 06/24/24 10:45 95 Oxymask 9 06/24/24 10:35 97 Nebulizer 7 06/24/24 10:25 96 Non-rebreather 15 06/24/24 10:17 100 Non-rebreather 15 06/24/24 08:04 96 Room Air 06/24/24 07:45 06/24/24 07:12 94 Room Air 06/24/24 03:05 97 Room Air Laboratory Results Laboratory Results - last 24 hr 06/24/24 06:16 WBC 12.83 H RBC 3.05 L Hgb 9.5 L Hct 28.1 L MCV 92.1 MCH 31.1 MCHC 33.8 RDW Std Deviation 55.0 H RDW Coeff of Christopher 17.3 H Plt Count 350 MPV 9.2 L Absolute Nucleated RBC 0.03 Nucleated RBC % (auto) 0.2 Sodium 144 Potassium 3.6 Chloride 108 H Carbon Dioxide 31 Anion Gap 5 BUN 11 Creatinine 0.35 L Est Cr Clr Drug Dosing 129.0 eGFR 116.94 BUN/Creatinine Ratio 31.4 H Glucose 99 Calcium 8.0 L Magnesium 1.8 PG Care Time/CCT Total # of Minutes Spent Total Time Spent with Patient: Total time spent is greater than 50% in coordination of care (as documented) at patient's floor/unit and/or counseling patient: Coding Level of Care Code 73742 SUB INP/OBS CARE 2/35MIN Diagnoses Acute respiratory failure with hypoxia J96.01 Rhinovirus B34.8 Aspiration pneumonia J69.0 Aspiration pneumonia type: unspecified Laterality: right Lung location: unspecified part of lung Dysphagia R13.10 Cerebral palsy G80.9 Cerebral palsy type: unspecified type Hypothyroidism (acquired) E03.9 Esophageal dilatation K22.89 Acute metabolic encephalopathy G93.41 Urinary tract infection N30.00 Hematuria presence: without hematuria Urinary tract infection type: acute cystitis (3) Aspiration pneumonia Aspiration pneumonia type: unspecified Laterality: right Lung location: unspecified part of lung Qualified Code(s): J69.0 - Pneumonitis due to inhalation of food and vomit (5) Cerebral palsy Cerebral palsy type: unspecified type Qualified Code(s): G80.9 - Cerebral palsy, unspecified (9) Urinary tract infection Hematuria presence: without hematuria Urinary tract infection type: acute cystitis Qualified Code(s): N30.00 - Acute cystitis without hematuria
[2024-06-24] MEDS: ACETAMINOPHEN SUSP 325 MG/10.15 ML UDC PO PRN (13:25)
[2024-06-24] MEDS: LACTATED RINGER'S 1,000 ML IV SCH (13:44)
[2024-06-24] MEDS: TUBE FEEDING WATER FLUSH JT SCH (17:08)
[2024-06-24] MEDS: MAGNESIUM SULFATE / D5W 1 GM/100 ML BAG IV ONE (18:14)
[2024-06-24] MEDS: POTASSIUM CHLORIDE 20 MEQ/15 ML UDC JT STA (18:34)
[2024-06-24] MEDS ORDERED: VALPROIC ACID SOLN 500 MG/10 ML UDC GT SCH (21:00)
[2024-06-24] MEDS ORDERED: VALPROIC ACID SOLN 500 MG/10 ML UDC PO SCH (21:00)
[2024-06-24] MEDS: hydrOXYzine HCl 25 MG TAB JT SCH (21:46)
[2024-06-24] MEDS: MIRTAZAPINE TAB 15 MG TAB JT SCH (21:46)
[2024-06-24] MEDS: VALPROIC ACID SOLN 500 MG/10 ML UDC GT SCH (22:38)
[2024-06-25] MEDS: LEVOTHYROXINE SODIUM 50 MCG TABLET GT SCH (05:47)
--- NOTE | 2024-06-25 07:59 | Surgery Progress Note ---
Date of Service June 25, 2024 Assessment & Plan (1) Decreased oral intake: Plan: POD#1 open jejunostomy placement TEN started yesterday, currently at 20cc/hr rate J tube is okay for use for meds/TEN as needed Steri-strips in place, will fall off on their own within 7-10 days. okay to shower We will follow peripherally, please call with any questions/concerns F/u in office for post op check in 1-2 weeks no issues POD1. call if any questions/issues Admission and Anticipated Discharge Date Admission Date: June 11, 2024 Subjective Patient resting in bed, undergoing a breathing treatment. Physical Exam Physical Exam: awake Gastrointestinal (Abdomen): Inspection/Auscultation: + abdominal surgical incision (steris with some dried old blood noted and on dressing (dressing changed)) Percussion/Palpation: + abdomen tender (appeared in mild discomfort when changing dressing) and abdomen soft Results & Data Vital Signs (Past 12 Hours) Vital Signs Temp Pulse Pulse Resp BP Pulse Ox O2 Del Method 06/25/24 07:21 110 H 20 95 Nasal Cannula 06/25/24 03:12 98.2 F 113 H 18 115/72 96 Nasal Cannula 06/25/24 00:44 98.6 F 117 H 18 103/65 94 Nasal Cannula 06/24/24 21:51 107 H 06/24/24 20:15 Room Air 06/24/24 20:15 98.8 F 106 H 20 112/74 90 Room Air O2 Flow Rate 06/25/24 07:21 4 06/25/24 03:12 4 06/25/24 00:44 4 06/24/24 21:51 06/24/24 20:15 06/24/24 20:15 PG Care Time/CCT Total # of Minutes Spent Total Time Spent with Patient: Total time spent is greater than 50% in coordination of care (as documented) at patient's floor/unit and/or counseling patient: Coding Level of Care Code 08448 Post Operative Follow-Up Diagnoses Decreased oral intake R63.8
[2024-06-25] MEDS: hydrOXYzine HCl 25 MG TAB JT SCH (08:15)
[2024-06-25] MEDS: PARoxetine HCL 20 MG TAB GT SCH (08:16)
[2024-06-25 09:32] LABS: Hematocrit (blood only) 28.4 % (37.0-47.0); Hemoglobin 9.7 g/dl (12.0-16.0); Mean Corpuscular Hemoglobin 31.3 pg (25.0-34.0); Mean Corpuscular Hgb Conc 34.2 g/dL (32.0-36.0); Mean Corpuscular Volume 91.6 fL (80.0-100.0); Mean Platelet Volume 9.5 fL (9.4-12.4); Platelet Count 431 K/uL (130-400); RDW Coefficient of Variation 17.7 % (11.5-14.5); RDW Standard Deviation 56.4 fL (36.4-46.3); White Blood Count 20.38 K/ul (4.8-10.8)
[2024-06-25] MEDS ORDERED: PEPTAMEN 1.5 CAL 1,000 ML BAG JT SCH (10:00)
[2024-06-25 10:09] LABS: Albumin Globulin Ratio 1.4 (0.9-2); Albumin Level 3.3 gm/dl (3.4-5.0); BUN Creatinine Ratio 35.7 (10-20); Bilirubin,Total 0.5 mg/dl (0.2-1.0); Calcium 7.8 mg/dl (8.6-10.3); Creatinine Clr Calc Pharmacy 161.2 ml/min; Globulin 2.4 gm/dl (2.5-4.0); Magnesium 2.2 mg/dl (1.7-2.4); Potassium 3.7 mmol/L (3.5-5.1); Total Protein 5.7 gm/dl (6.0-8.3)
[2024-06-25 10:49] LABS: Thyroid Stimulating Hormone 1.93 uIu/ml (0.300-4.500)
[2024-06-25 10:51] LABS: T4 Free Thyroxine 1.29 ng/dl (0.61-1.60)
[2024-06-25] MEDS: TUBE FEEDING WATER FLUSH JT SCH (13:00)
[2024-06-25] MEDS: QUEtiapine FUMARATE 25 MG TABLET JT SCH (17:31)
--- NOTE | 2024-06-25 19:50 | Hospitalist Progress Note ---
Date of Service June 25, 2024 Assessment & Plan (1) Jejunostomy tube present: Plan: POD #1 s/p open J-tube placement by Dr Sandoval appreciate gen surg assistance thus far tolerating her tube feedings appreciate nutrition recommendations Peptamen 1.5 - 40ml/hr continuous is goal Free H20 flushes as calculated by nutrition +stool this am some distension on exam, but it is similar to my exam dated 06/17/24 labs in am (2) Acute respiratory failure with hypoxia: Plan: 2nd to rhinovirus infection with bronchitis 2nd to aspiration pneumonia / superimposed bacterial pneumonia +/- pulmonary edema resolving albeit slowly - still requiring NC O2 supplementation finished course of abx pulmonary consult and recs by Dr Friend earlier this admission much appreciated (3) Rhinovirus: Plan: respiratory [employer] panel + for rhinovirus at time of admission with resulting bronchitis/acute hypoxic resp failure cont droplet precautions (4) Aspiration pneumonia: Plan: CT chest 06/16 with b/l basilar infiltrates especially the RML this was likely bacterial pneumonia in the setting of rhinovirus very high suspicion for aspiration etiology in light of dysphagia completed full course of IV antibiotic therapy continues with sinus tachycardia - due to bronchodilators?? will trial off xopenex/atrovent and see if HRs improve cont saline nebs for now and pulmonary toilet (mucinex, etc) (5) Dysphagia: Plan: per report from the pt's mother/sister & workers from [employer] she had had worsening dysphagia with poor oral intake for several weeks prior to admission now s/p J-tube insertion 06/24/24 see #1 above allowed to take some PO but pureed texture needed (6) Cerebral palsy: Plan: lives at [employer] [facility] [employer] in [place] non-ambulatory cont chronic baclofen, remeron, seroquel, paxil, etc. (7) Hypothyroidism (acquired): Plan: TSH 6 in April 2024 TSH and FT4 today wnl cont synthroid (8) Esophageal dilatation: Plan: seen on CT chest s/p EGD by GI this admission - esophagus was NORMAL (Gastritis seen only along with gastric polyps) cont PPI (9) Acute metabolic encephalopathy: Plan: 2nd to rhinovirus infection, superimposed bacterial pneumonia, etc. 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: Plan: initial level was 149 on a daily depakote dose of 750mg BID I do not know if this was truly a steady state level [id number] was very high depakote dose reduced to 650mg BID via J-tube most recent level - 81 (12) Stridor: Plan: had such earlier this admission -- resolved (13) Urinary tract infection: Plan: 2nd to pansensitive e.coli resolved completed full course of IV abx therapy Plan DVT prophylaxis: Heparin 5000 units subcutaneous twice daily I had multiple [place] correspondences with case management today There is concern that [facility] may not be able to accommodate her needs in light of J-tube feedings, etc as those feedings are continuous rather than bolus Will rely heavily on case management to coordinate her post-d/c care with [facility] The soonest [facility] could take Beulah back is next week Admission and Anticipated Discharge Date Admission Date: June 11, 2024 Subjective patient resting in bed during the visit eyes open, smiled a few times does not follow commands, but did reach for one of her baby dolls that her family had brought in tele - sinus tach (ongoing) no vomiting per staff +stool this am per nursing documentation pt's J-tube feedings are at goal of 40ml/hr continues to require 2 L NC O2 Review of Systems Review of Systems: Unobtainable due to cognitive status Physical Exam Physical Exam: gen - awake, alert, looking around the room; did not speak at all while I was examining her; dysmorphic in appearance mouth - no thrush, MMM neck - no JVD heart - tachycardic, s1 s2, no murmur lungs - course BS b/l, decreased BS R base, L base normal airation; no wheeze or rales abd - distended, BS+, no apparent tenderness; dressings intact around J-tube site which is clean; no HSM ext - trace-1+ edema /l, foot deformities b/l, pulses b/l feet 2+ musculo - deformities of arms/hands skin - no rash Results & Data Results & Data Vital Signs (Past 12 Hours) Vital Signs Temp Pulse Resp BP Pulse Ox O2 Del Method O2 Flow Rate 06/25/24 16:39 36.7 C 113 H 19 122/79 90 Nasal Cannula 2.0 06/25/24 15:05 112 H 20 89 L Room Air 06/25/24 12:00 36.7 C 111 H 20 123/62 90 Room Air 06/25/24 11:09 114 H 20 89 L Nasal Cannula 2 06/25/24 08:00 36.6 C 111 H 16 116/77 90 Nasal Cannula 2.0 Laboratory Results Laboratory Results - last 24 hr 06/25/24 08:52 WBC 20.38 H RBC 3.10 L Hgb 9.7 L Hct 28.4 L MCV 91.6 MCH 31.3 MCHC 34.2 RDW Std Deviation 56.4 H RDW Coeff of Christopher 17.7 H Plt Count 431 H MPV 9.5 Sodium 146 H Potassium 3.7 Chloride 109 H Carbon Dioxide 29 Anion Gap 8 BUN 10 Creatinine 0.28 L Est Cr Clr Drug Dosing 161.2 eGFR 123.40 BUN/Creatinine Ratio 35.7 H Glucose 116 H Calcium 7.8 L Magnesium 2.2 Total Bilirubin 0.5 AST 21 ALT 14 Alkaline Phosphatase 306 H Total Protein 5.7 L Albumin 3.3 L Globulin 2.4 L Albumin/Globulin Ratio 1.4 TSH 1.930 Free T4 1.29 PG Care Time/CCT Total # of Minutes Spent Total Time Spent with Patient: Total time spent is greater than 50% in coordination of care (as documented) at patient's floor/unit and/or counseling patient: Coding Level of Care Code 99678 SUB INP/OBS CARE 2/35MIN Diagnoses Jejunostomy tube present Z93.4 Acute respiratory failure with hypoxia J96.01 Rhinovirus B34.8 Aspiration pneumonia J69.0 Aspiration pneumonia type: unspecified Laterality: right Lung location: unspecified part of lung Dysphagia R13.10 Cerebral palsy G80.9 Cerebral palsy type: unspecified type Hypothyroidism (acquired) E03.9 Esophageal dilatation K22.89 Acute metabolic encephalopathy G93.41 GERD (gastroesophageal reflux disease) K21.9 Valproic acid toxicity T42.6X1A Stridor R06.1 Urinary tract infection N30.00 Hematuria presence: without hematuria Urinary tract infection type: acute cystitis (4) Aspiration pneumonia Aspiration pneumonia type: unspecified Laterality: right Lung location: unspecified part of lung Qualified Code(s): J69.0 - Pneumonitis due to inhalation of food and vomit (6) Cerebral palsy Cerebral palsy type: unspecified type Qualified Code(s): G80.9 - Cerebral palsy, unspecified (13) Urinary tract infection Hematuria presence: without hematuria Urinary tract infection type: acute cystitis Qualified Code(s): N30.00 - Acute cystitis without hematuria
[2024-06-25] MEDS: LANSOPRAZOLE 30 MG SOLTAB JT SCH (21:53)
[2024-06-25] MEDS: VALPROIC ACID 50 MG/ML UDP PEG SCH (23:19)
--- NOTE | 2024-06-25 23:19 | Communication Note ---
Date of Service: June 25, 20240 Notified by nursing of patient having new bilious emesis w/ firm abdominal distension. Of note, patient had J-tube placement on 06/24/24 and has been receiving feeds and meds through the J-tube. Vitals: Tachycardic (110-113), normotensive, afebrile Labs: Increasing leukocytosis (20 H), rising Alk Phos (150 to 300) Exam: Firm, distended abdomen w/ TTP around J-tube site Assessment/Plan: - Held tube feedings and provided Zofran - KUB obtained w/o free air or evidence - Reviewed w/ surgery MONTY who agreed w/ above measures - CTAP w/ contrast obtained which showed high grade SBO - NGT ordered to SHARON - Sridhar started w/ LR @ 80 - Ongoing assistance from general surgery team, appreciate recommendations - Continue to hold J-tube use Resident Activity Tracking Resident Involvement: Resident Care Provided Care Provided: Adult Hospital Medicine
--- NOTE | 2024-06-25 23:19 | Communication Note ---
Date of Service: June 25, 2024 I was called by the medical service at approximately 10:30 PM that this patient was having nausea and vomiting. It was also noted that her abdomen seems firm and distended. The medical service placed the patient's tube feeds on hold and ordered a KUB. Shortly after the KUB was performed I evaluated the patient at bedside. The KUB did not show any intraperitoneal free air and showed nonspecific bowel gas pattern. At the bedside the patient's abdomen is noted to be distended and firm it is also tympanic to percussion. Palpation of her abdomen did seem to elicit a painful response which appear to be greatest at the J-tube insertion site itself. Patient's most recent labs were reviewed and her white blood cell count is now 20.38 which is increased from 12.8 yesterday. The patient is noted to be normotensive without fever. She is tachycardic with a heart rate in the 120s. It is unclear what the cause of patient's elevated white blood cell count is. I discussed with the medical service at the present time we will continue to hold the patient's tube feeds. We will keep her head elevated at 45 degrees. I did instruct the medical service that if patient has persistent nausea and vomiting we may need to place an NG tube. In addition due to the patient's physical exam findings we will check a CT scan of the abdomen pelvis for further evaluation. Additional recommendations will be forthcoming based on her clinical course as unfolds and what her pending CT scan shows. Addendum (1:15 AM) CT scan of the abdomen pelvis has been completed. This shows the patient has a distended and fluid-filled stomach and multiple dilated proximal and mid small bowel loops measuring up to 4 cm with some air-fluid levels and a decompressed terminal ileuminterpreting radiologist felt this represented high-grade small bowel obstruction. There is no pneumoperitoneum. Due to her CT scan findings an NG tube will be placed. Will keep the patient's tube feeds on hold. Additional recommendations to follow based on her clinical course. Addendum (2:30 AM) NG tube placed by nursing staff without difficulty. KUB was performed that charles wed NG tube was in good position. NG tube was placed to suction and immediately in excess of 400 cc of dark material was suctioned. Will continue with the plan as outlined above.
[2024-06-26] MEDS: OPTIRAY 320 100ml IV ONE (00:02)
--- NOTE | 2024-06-26 01:09 | CT Scan Report ---
Exam(s): CT ABDOMEN + PELVIS With Contrast IV Amt: 93 ML OPTIRAY 320 EXAM: CT Abdomen and Pelvis With Intravenous Contrast CLINICAL HISTORY: Reason for exam: bilious emesis. TECHNIQUE: Axial computed tomography images of the abdomen and pelvis with intravenous contrast. CTDI is 28.1 mGy and DLP is 571.1 mGy-cm. Automated exposure control was utilized for the study. A dose lowering technique was utilized adhering to the principles of ALARA. CONTRAST: Patient received 93 ML OPTIRAY 320 of IV contrast COMPARISON: June 03, 2024 FINDINGS: Lung bases: Increased bibasilar atelectasis compared to previous. ABDOMEN: Liver: Fatty infiltration of the liver. No focal liver lesion is seen. Gallbladder and bile ducts: The gallbladder is contracted but otherwise unremarkable. No calcified stones. No ductal dilation. Pancreas: Unremarkable. No mass. No ductal dilation. Spleen: Unremarkable. No splenomegaly. Adrenals: Unremarkable. No mass. Kidneys and ureters: Unremarkable. No solid mass. No hydronephrosis. Stomach and bowel: See below. PELVIS: Appendix: No findings to suggest acute appendicitis. Bladder: Unremarkable. No mass. Reproductive: Unremarkable as visualized. ABDOMEN and PELVIS: Intraperitoneal space: See below. Bones/joints: Moderate to severe degenerative changes throughout the spine. No acute fracture or destructive bone lesion is seen. No dislocation. Soft tissues: Unremarkable. Vasculature: Unremarkable. No abdominal aortic aneurysm. Lymph nodes: Unremarkable. No enlarged lymph nodes. Tubes, lines and devices: The stomach is distended with fluid but nondilated. There are multiple dilated proximal and mid small bowel loops measuring up to 4 cm in diameter with scattered gas fluid levels. There is a percutaneous feeding tube extending into the small bowel. The terminal ileum is completely decompressed indicating high-grade distal small bowel obstruction. This is new. No pneumoperitoneum or abscess is identified. There is a small amount of free fluid. IMPRESSION: The stomach is distended with fluid but nondilated. There are multiple dilated proximal and mid small bowel loops measuring up to 4 cm in diameter with scattered gas fluid levels. There is a percutaneous feeding tube extending into the small bowel. The terminal ileum is completely decompressed indicating high-grade distal small bowel obstruction. This is new. No pneumoperitoneum or abscess is identified. There is a small amount of free fluid. Electronically signed by: Josse Clinton MD 06/26/24 01:08 AM
[2024-06-26] MEDS: LACTATED RINGER'S 1,000 ML IV SCH (01:32)
--- NOTE | 2024-06-26 06:40 | XRay Report ---
KUB CLINICAL HISTORY: Bilious emesis. COMPARISON STUDY: KUB June 17, 2024. CT of the abdomen and pelvis June 03, 2024. FINDINGS: Multiple loops of moderately dilated small bowel measure up to 4.1 cm in caliber. A jejunos bela tube is in place. Chronic dislocation deformity of the hips is incidentally noted. There is no e vidence for free air on supine exam. No radiographic evidence for pneumatosis or portal venous gas. IMPRESSION: Multiple loops of moderately dilated small bowel suggestive of a small bowel obstruction . ACT 112: Negative or not required by law. Electronically signed by: Jignesh Ibrahim M.D. 06/26/2024 6:38 AM
--- NOTE | 2024-06-26 06:51 | XRay Report ---
KUB CLINICAL HISTORY: confirmation of placement COMPARISON STUDY: KUB and CT of the abdomen and pelvis June 26, 2024. FINDINGS: Tip of nasogastric tube is within the body of the stomach. The tube is well-positioned. Mul tiple loops of dilated small bowel are again noted. Incidental note is made of contrast within the co llecting systems and proximal ureters from recent contrast-enhanced CT. Low lung volumes are noted wi th bibasilar opacities. IMPRESSION: 1. Appropriately positioned nasogastric tube. Tube within the body of the stomach. 2. Small bowel dilatation consistent with a small bowel obstruction, as shown on CT. ACT 112: Negative or not required by law. Electronically signed by: Jignesh Ibrahim M.D. 06/26/2024 6:50 AM
--- NOTE | 2024-06-26 08:28 | Surgery Progress Note ---
Date of Service June 26, 2024 Assessment & Plan (1) Decreased oral intake: Plan: POD#2 open jejunostomy placement Patient overnight having emesis, CT Abdomen/pelvis obtained with high-grade SBO. NGT was placed with 450mL output recorded. Keep NGT in place and to suction. Tube feeds currently on hold, keep NPO On exam this morning patient's abdomen is noted to be distended and she appears tender diffusely throughout with palpation. WBC last evening elevated to 20, AM labs currently pending, if continues to be elevated will initiate IV antibiotics. Steri-strips to remain in place - these will fall off on their own within 7-10 days. okay to shower as above. events of last night noted. CT reviewed with radiology. The distal small bowel appears to be trapped between j-tube and abdominal wall. likely sight of obstruction. discussed with family. will take to OR to eval/release. discussed risks/options. they agree. will proceed to OR stat. Admission and Anticipated Discharge Date Admission Date: June 11, 2024 Subjective Patient is POD#2 open jejunostomy placement, originally doing well post- operatively however overnight patient had reported emesis. Imaging was obtained which demonstrated high-grade SBO, tube feeds were held, and NGT was placed and put to suction at that time. NGT remains in place with recorded 450mL output Patient's abdomen this morning continues to appear distended and does appear tender diffusely throughout specifically at the J-tube insertion site. Physical Exam Gastrointestinal (Abdomen): Inspection/Auscultation: + abdomen distended and + abdominal surgical incision ( steri strips in place with some dried old blood noted ) Percussion/Palpation: + abdomen tender (throughout all quadrants ) and + abdomen firm Results & Data Vital Signs (Past 12 Hours) Vital Signs Temp Pulse Pulse Pulse Resp BP BP 06/26/24 07:52 118 H 17 06/26/24 03:49 36.4 C L 114 H 19 105/72 06/26/24 02:58 115 H 06/25/24 22:54 36.3 C L 120 H 20 119/82 06/25/24 21:47 113 H 06/25/24 21:45 Pulse Ox O2 Del Method O2 Flow Rate 06/26/24 07:52 90 Nasal Cannula 2 06/26/24 03:49 94 Nasal Cannula 2 06/26/24 02:58 06/25/24 22:54 92 Nasal Cannula 2 06/25/24 21:47 06/25/24 21:45 Nasal Cannula [address] Abdomen/Pelvis 06/25/24: Exam(s): CT ABDOMEN + PELVIS With Contrast IV Amt: 93 ML OPTIRAY 320 EXAM: CT Abdomen and Pelvis With Intravenous Contrast CLINICAL HISTORY: Reason for exam: bilious emesis. TECHNIQUE: Axial computed tomography images of the abdomen and pelvis with intravenous contrast. CTDI is 28.1 mGy and DLP is 571.1 mGy-cm. Automated exposure control was utilized for the study. A dose lowering technique was utilized adhering to the principles of ALARA. CONTRAST: Patient received 93 ML OPTIRAY 320 of IV contrast COMPARISON: June 03, 2024 FINDINGS: Lung bases: Increased bibasilar atelectasis compared to previous. ABDOMEN: Liver: Fatty infiltration of the liver. No focal liver lesion is seen. Gallbladder and bile ducts: The gallbladder is contracted but otherwise unremarkable. No calcified stones. No ductal dilation. Pancreas: Unremarkable. No mass. No ductal dilation. Spleen: Unremarkable. No splenomegaly. Adrenals: Unremarkable. No mass. Kidneys and ureters: Unremarkable. No solid mass. No hydronephrosis. Stomach and bowel: See below. PELVIS: Appendix: No findings to suggest acute appendicitis. Bladder: Unremarkable. No mass. Reproductive: Unremarkable as visualized. ABDOMEN and PELVIS: Intraperitoneal space: See below. Bones/joints: Moderate to severe degenerative changes throughout the spine. No acute fracture or destructive bone lesion is seen. No dislocation. Soft tissues: Unremarkable. Vasculature: Unremarkable. No abdominal aortic aneurysm. Lymph nodes: Unremarkable. No enlarged lymph nodes. Tubes, lines and devices: The stomach is distended with fluid but nondilated. There are multiple dilated proximal and mid small bowel loops measuring up to 4 cm in diameter with scattered gas fluid levels. There is a percutaneous feeding tube extending into the small bowel. The terminal ileum is completely decompressed indicating high-grade distal small bowel obstruction. This is new. No pneumoperitoneum or abscess is identified. There is a small amount of free fluid. IMPRESSION: The stomach is distended with fluid but nondilated. There are multiple dilated proximal and mid small bowel loops measuring up to 4 cm in diameter with scattered gas fluid levels. There is a percutaneous feeding tube extending into the small bowel. The terminal ileum is completely decompressed indicating high-grade distal small bowel obstruction. This is new. No pneumoperitoneum or abscess is identified. There is a small amount of free fluid. Electronically signed by: Josse Clinton MD 06/26/24 01:08 AM PG Care Time/CCT Total # of Minutes Spent Total Time Spent with Patient: Total time spent is greater than 50% in coordination of care (as documented) at patient's floor/unit and/or counseling patient: Coding Level of Care Code 54339 Post Operative Follow-Up Diagnoses Decreased oral intake R63.8
[2024-06-26] MEDS ORDERED: TPN/PPN CONSULT PHARMACY PRN (09:51)
[2024-06-26 09:59] LABS: Hematocrit (blood only) 33.4 % (37.0-47.0); Hemoglobin 10.9 g/dl (12.0-16.0); Mean Corpuscular Hemoglobin 30.9 pg (25.0-34.0); Mean Corpuscular Hgb Conc 32.6 g/dL (32.0-36.0); Mean Corpuscular Volume 94.6 fL (80.0-100.0); Mean Platelet Volume 9.6 fL (9.4-12.4); Nucleated RBC # (auto) 0.03 K/uL (0.00-0.12); Nucleated RBC % (auto) 0.1 %; Platelet Count 533 K/uL (130-400); RDW Coefficient of Variation 18.6 % (11.5-14.5); RDW Standard Deviation 59.8 fL (36.4-46.3); Red Blood Count 3.53 M/uL (4.20-5.40); White Blood Count 25.72 K/ul (4.8-10.8)
[2024-06-26 10:13] LABS: BUN Creatinine Ratio 34.5 (10-20); Calcium 9.4 mg/dl (8.6-10.3); Creatinine Clr Calc Pharmacy 155.7 ml/min; Potassium 4.2 mmol/L (3.5-5.1)
[2024-06-26 10:43] LABS: Magnesium 2.1 mg/dl (1.7-2.4); Phosphorus 1.4 mg/dl (2.5-4.9)
[2024-06-26] MEDS ORDERED: MIDAZOLAM HCL 1 MG/ML 2ML VIAL ONE (10:53)
[2024-06-26] MEDS ORDERED: fentaNYL citrate PF 100 MCG/2 ML VIAL ONE (10:53)
--- NOTE | 2024-06-26 10:53 | Anesthesiology Consultation ---
Date of Service June 26, 2024 Assessment & Plan (1) Encounter for pre-operative examination: Chart Review Chart Review: Acceptable Risk for Surgery (urgent) History Surgery Operation Date: 06/17/24 16:30 Proposed Procedures p Esophagogastroduodenoscopy Esther Santana MD Operation Date: 06/17/24 16:30 Proposed Procedures p Esophagogastroduodenoscopy with Gastric Tube Placement Esther Santana MD Operation Date: 06/22/24 16:55 Proposed Procedures p Esophagogastroduodenoscopy Carey Patino MD Operation Date: 06/24/24 08:35 Proposed Procedures p Open J-tube Insertion - Cornel Sandoval DO Operation Date: 06/26/24 12:40 Proposed Procedures p Exploratory Laparotomy - Cornel Sandoval DO Height/Weight Height: 5 ft 1 in Weight: 49.5 kg Allergies Allergy/AdvReac Type Severity Reaction Status Date / Time amoxicillin Allergy Unknown ON MED LIST Verified 04/21/24 17:32 clavulanic acid Allergy Unknown ON MED LIST Verified 04/21/24 17:32 Medications Home Medications Medication Instructions Recorded Confirmed Last Taken baclofen 10 mg tablet 5 mg PO TID 11/14/19 06/11/24 04/21/24 08:00 baclofen 20 mg tablet 20 mg PO TID 11/14/19 06/11/24 04/21/24 08:00 fexofenadine 180 mg tablet 180 mg PO QAM 11/14/19 06/11/24 04/21/24 (Jayleen Allergy) fluticasone propionate 50 2 spray intranasal QAM 11/14/19 06/11/24 04/21/24 mcg/actuation nasal spray,suspension ketoconazole 2 % topical cream 1 applic topical BID 11/14/19 06/11/24 04/21/24 08:00 metronidazole 0.75 % topical cream 1 applic topical BID 11/14/19 06/11/24 04/21/24 08:00 omeprazole 40 mg capsule,delayed 40 mg PO BID 11/14/19 06/11/24 04/21/24 08:00 release paroxetine HCl 40 mg tablet 40 mg PO QAM 11/14/19 06/11/24 04/21/24 quetiapine 200 mg tablet 200 mg PO HS 11/14/19 06/11/24 04/20/24 quetiapine 25 mg tablet 12.5 mg PO .DAILY@1600 11/14/19 06/11/24 04/20/24 paroxetine HCl 20 mg tablet 20 mg PO QAM 06/28/20 06/11/24 04/21/24 estradiol 0.01% (0.1 mg/gram) 1 applic vaginal 2XWK 05/12/21 06/11/24 04/20/24 vaginal cream mirtazapine 7.5 mg tablet 7.5 mg PO HS 05/12/21 06/11/24 04/20/24 hydroxyzine HCl 25 mg tablet See Rx Instructions .Route .COMPLEX 05/17/21 06/11/24 04/21/24 08:00 polyethylene glycol 3350 17 17 g PO QAM 10/09/22 06/11/24 04/21/24 gram/dose oral powder (Miralax) chlorhexidine gluconate 0.12 % 1 applic PO 2XWK 05/21/23 06/11/24 04/16/24 mouthwash carbamide peroxide 6.5 % ear drops 5 drp otic (ear) WK 06/11/24 06/11/24 Unknown (Debrox) divalproex 125 mg tablet,delayed 750 mg PO BID 06/11/24 06/11/24 Unknown release levothyroxine 75 mcg tablet 50 mcg PO DAILY 06/11/24 06/11/24 Unknown starch (thickening) (Thick-It oral 0 ea PO DAILY 06/11/24 06/11/24 Unknown powder) Active Medications Generic Name Dose Route Start Last Admin Trade Name Freq PRN Reason Stop Dose Admin Acetaminophen 975 mg 06/23/24 17:52 06/24/24 21:44 Acetaminophen Susp 325 Mg/10.15 Ml Udc PO 07/23/24 17:51 975 mg TID PRN Administration pain or fever Acetylcysteine 5 ml 06/17/24 19:00 06/26/24 07:52 Acetylcysteine 20% Inhal Soln 4ml Dispensed By Resp. INH 07/17/24 18:59 Not Given Q12R DOMINGUEZ Baclofen 20 mg 06/23/24 09:45 06/26/24 07:41 Baclofen 20 Mg Tab PO 07/23/24 09:44 Not Given TID@0800,1600,1999 [facility] Baclofen 5 mg 06/23/24 09:45 06/26/24 07:42 Baclofen 10 Mg Tab PO 07/23/24 09:44 Not Given TID@0800,1600,1999 [facility] Chlorhexidine Gluconate 0 ml 06/16/24 09:00 06/25/24 08:18 Chlorhexidine Gluconate 0.12% 480 Ml MT 07/16/24 08:59 1 ml TuTh@0900 DOMINGUEZ Administration Fexofenadine HCl 180 mg 06/12/24 09:00 06/26/24 07:43 Fexofenadine Hcl 180 Mg Tab PO 07/12/24 08:59 Not Given QAM DOMINGUEZ Fluticasone Propionate 2 sprays 06/12/24 09:00 06/26/24 08:52 Fluticasone Propionate Na Spr 16 Gm Btl NA 07/12/24 08:59 2 sprays QAM DOMINGUEZ Administration Heparin Sodium (Porcine) 5,000 units 06/12/24 09:00 06/26/24 09:08 Heparin Sod 5,000 Unit/0.5 Ml Vial SQ 07/12/24 08:59 5,000 units Q12 DOMINGUEZ Administration Hydroxyzine HCl 25 mg 06/24/24 21:00 06/25/24 21:52 Hydroxyzine Hcl 25 Mg Tab JT 07/24/24 20:59 25 mg HS DOMINGUEZ Administration Hydroxyzine HCl 12.5 mg 06/25/24 08:00 06/26/24 07:42 Hydroxyzine Hcl 25 Mg Tab JT 07/25/24 07:59 Not Given DAILY@0800,1600 DOMINGUEZ Lactated Ringer's 1,000 mls @ 80 mls/hr 06/26/24 01:30 06/26/24 01:32 Lr IV 06/26/24 13:59 80 mls/hr .[id number] DOMINGUEZ Administration Lansoprazole 30 mg 06/25/24 21:00 06/26/24 07:43 Lansoprazole 30 Mg Soltab JT 07/25/24 20:59 Not Given BID DOMINGUEZ Levothyroxine Sodium 50 mcg 06/25/24 06:30 06/26/24 05:10 Levothyroxine Sodium 50 Mcg Tablet GT 07/25/24 06:29 Not Given DAILYBB DOMINGUEZ Mirtazapine 7.5 mg 06/24/24 21:00 06/25/24 21:52 Mirtazapine Tab 15 Mg Tab JT 07/24/24 20:59 7.5 mg HS DOMINGUEZ Administration Ondansetron HCl 4 mg 06/11/24 20:30 06/26/24 08:52 Ondansetron Inj 2 Mg/Ml 2 Ml Vial IV 07/11/24 20:29 4 mg Q6H PRN Administration Nausea Pantoprazole Sodium 40 mg 06/11/24 21:00 06/11/24 22:50 Pantoprazole 40 Mg Tab PO 07/11/24 20:59 Not Given BID DOMINGUEZ Paroxetine HCl 60 mg 06/25/24 09:00 06/26/24 07:43 Paroxetine Hcl 20 Mg Tab GT 07/25/24 08:59 Not Given QAM DOMINGUEZ Quetiapine Fumarate 200 mg 06/23/24 21:00 06/25/24 21:54 Quetiapine Fumarate 200 Mg Tab PO 07/23/24 20:59 200 mg HS DOMINGUEZ Administration Quetiapine Fumarate 12.5 mg 06/25/24 16:00 06/25/24 17:31 Quetiapine Fumarate 25 Mg Tablet JT 07/25/24 15:59 12.5 mg DAILY@1600 DOMINGUEZ Administration Sterile Water 120 ml 06/25/24 12:00 06/26/24 07:42 Tube Feeding Water Flush JT 07/25/24 11:59 Not Given Q4 DOMINGUEZ Valproic Acid 650 mg 06/25/24 21:00 06/26/24 07:43 Valproic Acid 50 Mg/Ml Udp PEG 07/25/24 20:59 Not Given BID DOMINGUEZ NPO Date Last Intake of Fluids: 06/23/24 Time Last Intake of Fluids: 17:00 Last Intake of Fluids Comment: tube feedings Date Last Intake of Solids: 06/23/24 Time Last Intake of Solids: 17:00 Past Medical History Medical History (Updated 06/26/24 @ 10:53 by Estrada Choudhury MD) Acute respiratory failure with hypoxia Weakness generalized Hypertension Aspiration pneumonia Cerebral palsy COVID-19 Vomiting and diarrhea History of kidney stones Refuses to eat Dehydration Abdominal pain Intractable vomiting Colitis Past Family History Family History Father Diabetes Other Asthma Cancer Hypertension No family history of adverse response to anesthesia No family history of bleeding disorder Past Surgical History Surgical History Gastrostomy tube in place (06/24/24) Open J-tube Insertion - Cornel Sandoval, DO Hx of colonoscopy Surgical history unknown Social History Smoking Status: Never smoker Do You Dip or Chew Tobacco: No Hx Alcohol Use: No Hx Substance Use: No Physical Exam Vital Signs Last Vital Signs Temp 36.4 C L 06/26/24 03:49 Pulse 118 H 06/26/24 07:52 Resp 17 06/26/24 07:52 BP 105/72 06/26/24 03:49 Pulse Ox 90 06/26/24 07:52 O2 Del Method Nasal Cannula 06/26/24 07:52 O2 Flow Rate 2 06/26/24 07:52 FiO2 112 06/24/24 12:45 Testing Laboratory Results 06/26/24 09:24 06/26/24 09:24 PT 13.5 Seconds (9.0-12.0) H 06/22/24 07:16 INR 1.3 (0.9-1.1) H 06/22/24 07:16 Urine Color Dark Yellow 06/16/24 12:36 Urine Appearance Turbid (Clear) A 06/16/24 12:36 Urine pH 6.5 (4.5-7.5) 06/16/24 12:36 Ur Specific [place]wood 1.029 (1.000-1.030) 06/16/24 12:36 Urine Protein 2+ (Negative) H 06/16/24 12:36 Urine Glucose (UA) Negative (Negative) 06/16/24 12:36 Urine Ketones Trace (Negative) H 06/16/24 12:36 Urine Nitrite Positive (Negative) A 06/16/24 12:36 Ur Leukocyte Esterase 3+ (Negative) H 06/16/24 12:36 Urine WBC (Auto) >50 /hpf (0-5) H 06/16/24 12:36 Urine RBC (Auto) >20 /hpf (0-2) H 06/16/24 12:36 U Hyaline Cast (Auto) 0-2 /lpf (0-2) 06/16/24 12:36 U Epithel Cells (Auto) 0-2 /hpf (0-2) 06/16/24 12:36 Urine Bacteria (Auto) 4+ (None Seen) H 06/16/24 12:36 06/16/24 12:36 Urine Culture - Final Urine,Straight Cath Escherichia coli Electrocardiogram Date: 06/11/24 Findings: + NSST changes, + poor R wave progression and + ST @ (101) Echocardiogram Date: 06/20/24 EF: 60-65% LV Function: normal Valvular Disease: + no significant valvular disease
[2024-06-26] MEDS ORDERED: ALBUTEROL 0.083% NEBU SOLN 3 ML VIAL INH PRN (11:50)
[2024-06-26] MEDS ORDERED: PROMETHAZINE HCL 6.25 MG in SODIUM CHLORIDE 0.9% 50 ML IV PRN (11:50)
[2024-06-26] MEDS ORDERED: ATROPINE SULFATE 0.1 MG/ML 10ML SYR IV PRN (11:50)
[2024-06-26] MEDS ORDERED: HYDROmorphone INJ 1 MG/ML SYRINGE IV PRN (11:50)
--- NOTE | 2024-06-26 11:58 | Hospitalist Progress Note ---
Date of Service June 26, 2024 Assessment & Plan (1) SBO (small bowel obstruction): Plan: developed such overnight s/p NG tube placement, stoppage of J-tube feedings, and made strict NPO appreciate general surgery assistance concern is that a loop of small bowel is caught up by the recently placed J-tube thus, Beulah will be going back to the OR today for exploratory laparotomy and reduction of the SBO care d/w general surgery by phone & by Lucas correspondence in light of very poor nutrition for 2+ weeks and given that she may be npo/nothing by tube for a period of time following today's surgery I have ordered PPN pharmacy aware of such (2) Jejunostomy tube present: Plan: POD #2 s/p open J-tube placement by Dr Sandoval had been tolerating her Peptamen 1.5 tube feedings and had reached goal of 40ml/hr continuously yesterday she had stooled yesterday am as well unfortunately now with SBO - see #1 above tube feedings stopped (3) Acute respiratory failure with hypoxia: Plan: 2nd to rhinovirus infection with bronchitis 2nd to aspiration pneumonia / superimposed bacterial pneumonia +/- pulmonary edema resolving finished course of abx pulmonary consult and recs by Dr Friend earlier this admission much appreciated I cannot rule out aspiration from her bilious vomiting overnight Consider repeat cxr today leukocytosis noted -- yesterday's elevated WBC count may have reflected a dose of IV decadron given on 06/24 perioperatively by anesthesia, and/or due to brewing SBO today her WBC count has risen further low threshold to re-image the lungs to rule out a recurrent pneumonia plan repeat cbc am (4) Rhinovirus: Plan: respiratory [employer] panel + for rhinovirus at time of admission with resulting bronchitis/acute hypoxic resp failure cont droplet precautions (5) Aspiration pneumonia: Plan: CT chest 06/16 with b/l basilar infiltrates especially the RML this was likely bacterial pneumonia in the setting of rhinovirus very high suspicion for aspiration etiology in light of dysphagia completed full course of IV antibiotic therapy earlier this admission cont xopenex/atrovent at least BID cont mucomyst BID can stop saline nebs cough assist NC O2 (6) Dysphagia: Plan: per report from the pt's mother/sister & workers from [employer] she had had worsening dysphagia with poor oral intake for several weeks prior to admission now s/p J-tube insertion 06/24/24 see #1 and #2 above (7) Cerebral palsy: Plan: lives at [facility] in [place] non-ambulatory cont chronic baclofen, remeron, seroquel, paxil, etc. (8) Hypothyroidism (acquired): Plan: TSH 6 in April 2024 TSH and FT4 today wnl cont synthroid (9) Esophageal dilatation: Plan: seen on CT chest s/p EGD by GI this admission - esophagus was NORMAL (Gastritis seen only along with gastric polyps) cont PPI (10) Acute metabolic encephalopathy: Plan: 2nd to rhinovirus infection, superimposed bacterial pneumonia, etc. toxic effects from depakote when her level was >100 also likely played a role mentation improved nicely this week; family confirms she was back to her normal self (11) GERD (gastroesophageal reflux disease): Plan: cont PPI (12) Valproic acid toxicity: Plan: initial level was 149 on a daily depakote dose of 750mg BID I do not know if this was truly a steady state level [id number] was very high depakote dose reduced to 650mg BID via J-tube most recent level - 81 (13) Stridor: Plan: had such earlier this admission -- resolved (14) Urinary tract infection: Plan: 2nd to pansensitive e.coli resolved completed full course of IV abx therapy Plan DVT prophylaxis: Heparin 5000 units subcutaneous twice daily I had multiple Lucas correspondences with case management on 06/25/24 There is concern that [facility] may not be able to accommodate her needs in light of J-tube feedings, etc as those feedings are continuous rather than bolus ?Can [facility] provide continuous feedings? Will rely heavily on case management to coordinate her post-d/c care with [facility] The soonest [facility] could take Beulah back is next week at this point, however, discharge date is very uncertain given the new onset SBO Admission and Anticipated Discharge Date Admission Date: June 11, 2024 Subjective events of overnight noted developed bilious emesis night resident contacted imaging obtained - SBO noted on CT scan of a/p surgical PA also notified -- NG tube placed successfully, bilious fluid obtained during rounds Beulah was awake/alert pt's family including her mother were at bedside she was comfortable NG tube remains in place I spoke with Dr Sandoval from surgery - Beulah will go back to the OR for laparotomy concern is that a loop of bowel is caught on the J-tube leading to the SBO pt's mother is aware of need for exploratory surgery Review of Systems Review of Systems: Unobtainable due to cognitive status Physical Exam Physical Exam: gen - awake, alert, dysmorphic in appearance, no distress; NG tube in place; NC O2 in place mouth - MMM neck - no JVD heart - tachycardic, s1 s2, no murmur lungs - very course BS b/l - mildly worse than yesterday; decreased BS R base, L base still with normal airation; no rales abd - severe distension (worse than yesterday), BS+, no obvious tenderness; tympanic to percussion; dressings intact around J-tube site which is clean; no HSM ext - trace-1+ edema b/l, foot deformities b/l, pulses b/l feet 2+ musculo - deformities of arms/hands skin - no rash Results & Data Results & Data Vital Signs (Past 12 Hours) Vital Signs Temp Pulse Pulse Resp BP Pulse Ox O2 Del Method 06/26/24 11:28 36.8 C 120 H 22 124/82 91 Oxymask 06/26/24 07:52 118 H 17 90 Nasal Cannula 06/26/24 03:49 36.4 C L 114 H 19 105/72 94 Nasal Cannula 06/26/24 02:58 115 H O2 Flow Rate 06/26/24 11:28 5 06/26/24 07:52 2 06/26/24 03:49 2 06/26/24 02:58 Laboratory Results Laboratory Results - last 24 hr 06/26/24 06/26/24 09:24 10:29 WBC 25.72 H RBC 3.53 L Hgb 10.9 L Hct 33.4 L MCV 94.6 MCH 30.9 MCHC 32.6 RDW Std Deviation 59.8 H RDW Coeff of Christopher 18.6 H Plt Count 533 H MPV 9.6 Absolute Nucleated RBC 0.03 Nucleated RBC % (auto) 0.1 Sodium 143 Potassium 4.2 Chloride 105 Carbon Dioxide 35 H Anion Gap 3 BUN 10 Creatinine 0.29 L Est Cr Clr Drug Dosing 155.7 eGFR 122.36 BUN/Creatinine Ratio 34.5 H Glucose 140 H Lactate 1.6 Calcium 9.4 Phosphorus 1.4 L* Magnesium 2.1 Diagnostic Findings KUB X-Ray 06/25/24 22:20 KUB CLINICAL HISTORY: Bilious emesis. COMPARISON STUDY: KUB June 17, 2024. CT of the abdomen and pelvis June 03, 2024. FINDINGS: Multiple loops of moderately dilated small bowel measure up to 4.1 cm in caliber. A jejunostomy tube is in place. Chronic dislocation deformity of the hips is incidentally noted. There is no evidence for free air on supine exam. No radiographic evidence for pneumatosis or portal venous gas. IMPRESSION: Multiple loops of moderately dilated small bowel suggestive of a s mall bowel obstruction. ACT 112: Negative or not required by law. Electronically signed by: Jignesh Ibrahim M.D. 06/26/2024 6:38 AM Abdomen/Pelvis CT 06/25/24 23:12 Exam(s): CT ABDOMEN + PELVIS With Contrast IV Amt: 93 ML OPTIRAY 320 EXAM: CT Abdomen and Pelvis With Intravenous Contrast CLINICAL HISTORY: Reason for exam: bilious emesis. TECHNIQUE: Axial computed tomography images of the abdomen and pelvis with intravenous contrast. CTDI is 28.1 mGy and DLP is 571.1 mGy-cm. Automated exposure control was utilized for the study. A dose lowering technique was utilized adhering to the principles of ALARA. CONTRAST: Patient received 93 ML OPTIRAY 320 of IV contrast COMPARISON: June 03, 2024 FINDINGS: Lung bases: Increased bibasilar atelectasis compared to previous. ABDOMEN: Liver: Fatty infiltration of the liver. No focal liver lesion is seen. Gallbladder and bile ducts: The gallbladder is contracted but otherwise unremarkable. No calcified stones. No ductal dilation. Pancreas: Unremarkable. No mass. No ductal dilation. Spleen: Unremarkable. No splenomegaly. Adrenals: Unremarkable. No mass. Kidneys and ureters: Unremarkable. No solid mass. No hydronephrosis. Stomach and bowel: See below. PELVIS: Appendix: No findings to suggest acute appendicitis. Bladder: Unremarkable. No mass. Reproductive: Unremarkable as visualized. ABDOMEN and PELVIS: Intraperitoneal space: See below. Bones/joints: Moderate to severe degenerative changes throughout the spine. No acute fracture or destructive bone lesion is seen. No dislocation. Soft tissues: Unremarkable. Vasculature: Unremarkable. No abdominal aortic aneurysm. Lymph nodes: Unremarkable. No enlarged lymph nodes. Tubes, lines and devices: The stomach is distended with fluid but nondilated. There are multiple dilated proximal and mid small bowel loops measuring up to 4 cm in diameter with scattered gas fluid levels. There is a percutaneous feeding tube extending into the small bowel. The terminal ileum is completely decompressed indicating high-grade distal small bowel obstruction. This is new. No pneumoperitoneum or abscess is identified. There is a small amount of free fluid. IMPRESSION: The stomach is distended with fluid but nondilated. There are multiple dilated proximal and mid small bowel loops measuring up to 4 cm in diameter with scattered gas fluid levels. There is a percutaneous feeding tube extending into the small bowel. The terminal ileum is completely decompressed indicating high-grade distal small bowel obstruction. This is new. No pneumoperitoneum or abscess is identified. There is a small amount of free fluid. Electronically signed by: Josse Clinton MD 06/26/24 01:08 AM KUB X-Ray 06/26/24 02:13 KUB CLINICAL HISTORY: confirmation of placement COMPARISON STUDY: KUB and CT of the abdomen and pelvis June 26, 2024. FINDINGS: Tip of nasogastric tube is within the body of the stomach. The tube is well-positioned. Multiple loops of dilated small bowel are again noted. Incidental note is made of contrast within the collecting systems and proximal ureters from recent contrast-enhanced CT. Low lung volumes are noted with bibasilar opacities. IMPRESSION: 1. Appropriately positioned nasogastric tube. Tube within the body of the stomach. 2. Small bowel dilatation consistent with a small bowel obstruction, as shown on CT. ACT 112: Negative or not required by law. Electronically signed by: Jignesh Ibrahim M.D. 06/26/2024 6:50 AM PG Care Time/CCT Total # of Minutes Spent Total Time Spent with Patient: Total time spent is greater than 50% in coordination of care (as documented) at patient's floor/unit and/or counseling patient: Coding Level of Care Code 22262 SUB INP/OBS CARE 3/50MIN Diagnoses SBO (small bowel obstruction) K56.609 Jejunostomy tube present Z93.4 Acute respiratory failure with hypoxia J96.01 Rhinovirus B34.8 Aspiration pneumonia J69.0 Aspiration pneumonia type: unspecified Laterality: right Lung location: unspecified part of lung Dysphagia R13.10 Cerebral palsy G80.9 Cerebral palsy type: unspecified type Hypothyroidism (acquired) E03.9 Esophageal dilatation K22.89 Acute metabolic encephalopathy G93.41 GERD (gastroesophageal reflux disease) K21.9 Valproic acid toxicity T42.6X1A Stridor R06.1 Urinary tract infection N30.00 Hematuria presence: without hematuria Urinary tract infection type: acute cystitis (5) Aspiration pneumonia Aspiration pneumonia type: unspecified Laterality: right Lung location: unspecified part of lung Qualified Code(s): J69.0 - Pneumonitis due to inhalation of food and vomit (7) Cerebral palsy Cerebral palsy type: unspecified type Qualified Code(s): G80.9 - Cerebral palsy, unspecified (14) Urinary tract infection Hematuria presence: without hematuria Urinary tract infection type: acute cystitis Qualified Code(s): N30.00 - Acute cystitis without hematuria
[2024-06-26] MEDS ORDERED: ALBUMIN HUMAN 5% 12.5 GM/250 ML VIAL IV ONE (12:23)
[2024-06-26] MEDS: CEFOXITIN IV ONE (12:25)
[2024-06-26] MEDS: DEXTROSE 5% IV ONE (12:25)
[2024-06-26] MEDS: MINI B IV ONE (12:25)
[2024-06-26] MEDS ORDERED: ROCURONIUM BROMIDE 10 MG/ML 5 ML VIAL IV ONE (12:34)
[2024-06-26] MEDS ORDERED: ONDANSETRON INJ 2 MG/ML 2 ML VIAL ONE (12:34)
[2024-06-26] MEDS ORDERED: SUGAMMADEX SODIUM 200 MG/2 ML VIAL IV ONE (12:34)
[2024-06-26] MEDS ORDERED: PROPOFOL IV EMULSION 10 MG/ML 20 ML VIAL IV ONE (12:34)
[2024-06-26] MEDS ORDERED: LIDOCAINE 2% 2 ML VIAL/AMP(20MG/ML) INFIL ONE (12:34)
[2024-06-26] MEDS ORDERED: cefOXitin SOD 1,000 MG VIAL ONE (12:34)
[2024-06-26] MEDS ORDERED: PHENYLEPHRINE 100MCG/ML 10ML SYR IV ONE (12:34)
--- NOTE | 2024-06-26 12:56 | Pharmacy Report ---
Pharmacy PN Follow-up Note - Date of Service June 26, 2024 - Subjective Patient is currently on day #1 of PPN for prolonged poor PO intake w. small bowel obstruction. - Objective Height & Weight (Last Documented) Height 5 ft 1 in Weight 49.5 kg Diet Order(s) 06/26/24 04:52 NPO Intake & Ouput (24hrs) 06/25/24 06/26/24 06/27/24 06:59 06:59 06:59 Intake Total 3445.24 / 3445.24 240 / 240 Output Total 650 / 650 Balance 3439.24 / 3439.24 -410 / -410 Selected Laboratory Results 06/26/24 09:24 Sodium 143 Potassium 4.2 Chloride 105 Carbon Dioxide 35 H Anion Gap 3 BUN 10 Creatinine 0.29 L BUN/Creatinine Ratio 34.5 H Glucose 140 H Calcium 9.4 Phosphorus 1.4 L* Magnesium 2.1 - Assessment & Plan Assessment: * LH is a 59 year old female ordered PPN due to prolonged poor PO intake * POD #2 s/p open J-tube placement, now with SBO (distal small bowel appears to be trapped between j-tube and abdominal wall) * Phosphorus of 1.4 mg/dL today, repleting with 15 mmol sodium phosphate IV prior to PPN initiation * Macronutrient recommendations provided by dietary, appreciated * Plan to advance to goal on 06/27 pending AM labs Plan: * For Day #1 of PPN administration, the following will be ordered: * Macronutrients: * Amino Acids: 43 grams/day * Dextrose: 50 grams/day * Lipids: 50 grams/day * Micronutrients: * Sodium chloride: 60 mEq/day * Potassium phosphate: 21 mMol/day * Potassium chloride: 20 mEq/day * Magnesium sulfate: 4.06 mEq/day * Multivitamins: 10 mL/day * Trace elements: 1 mL/day * Thiamine: 100 mg/day * Total volume of 1054 mL will be infused over 24 hours and will provide 840 kcal/day * Patient is on PPN which has a maximum mOsm/L of 900. Final osmolarity of current solution is 845 mOsm/L. * Labs will be ordered per PN protocol. * Pharmacy will follow and adjust PN orders on a daily basis. Thank you!
--- NOTE | 2024-06-26 13:40 | Operative Report ---
PG Post Operative Report Pre & Post Diagnosis Operation Date: 06/26/24 12:40 Pre-Op Diagnosis: small bowel obstruction Post-Op Diagnosis: small bowel obstruction I identified the patient and participated in the time-out.: Yes Procedure Operation Date: 06/26/24 12:40 Actual Procedures p Exploratory Laparotomy, Release of Small Bowel Obstruction, Closure of enterotomy, Replacement of Jejunostomy tube (Not Applicable) - Cornel Sandoval DO Surgeon Cornel Sandoval, Hat Presser edwin Ruth , tish Garduno Estimated Blood Loss 5 Findings Consistent with Post-Op Diagnosis Specimens none Description of Procedure After informed consent was obtained the patient was taken to the operating room and placed in supine position. After successful intubation the abdomen was sterilely prepped and draped with Betadine solution. This included her jejunal feeding tube. I began by opening her prior upper midline incision. I did this with a 15 blade scalpel and cautery. We removed the old 0 Prolene fascial sutures as well. I decided to extend the incision for several centimeters superiorly for better visualization. There is small amount of serous fluid under the incision. There was also immediately noted dilated bowel. I began by following the dilated bowel distally. The obstruction was actually located right at the insertion site of the jejunal feeding tube. One of the fascial pexing sutures had broken and the bowel was twisted on the second 1. I cut the second 1 down. We pulled the bowel with the insertion site of the jejunum into the wound. There is a very small amount of ischemia and a small amount of leakage around the tube and I was unhappy with it. I therefore decided to place the jejunal feeding tube more proximal. We removed the jejunal feeding tube and closed this enterotomy using 3-0 Monocryl for mucosal/serosal layers followed by 3-0 silk in Lembert fashion for serosa. We then moved more proximal on the small bowel. I repeated the process from the prior procedure where I placed 3-0 silk pursestring x 2. We brought in a brand-new jejunal feeding tube and checked the balloon to make sure there was no leak. This was inserted into the same skin incision. I then made a small enterotomy in the small bowel inside the middle pursestring. The tube was advanced distally and the balloon inflated with 3 cc of saline. We secured both pursestrings. I then used 3-0 silk to create a Witzel tunnel. We flushed the the catheter and it did flush easily. There was no evidence of any leakage. We then pulled the balloon and small bowel up to the anterior abdominal wall. This time I decided not to place the pexing stitches. The external button was secured against the skin and secured with 3-0 silk. No other abnormalities were identified. There was no evidence of any infarcted or ischemic bowel. We thoroughly irrigated the entire abdomen. I then closed the fascia using 0- looped PDS in running fashion. Soft tissue was irrigated. The skin was closed using skin shantel over a [place] drain. Silver dressing was applied. The patient was awakened and transferred to [facility] in stable condition. My physician assistants were present for the entire case and were instrumental in providing exposure assisting with tube placement enterotomy closure fascial closure and dressing placement. I attest to the content of the Intraoperative Record and any orders documented therein. Any exceptions are noted below.
--- NOTE | 2024-06-26 15:17 | Anesthesiology Progress Note ---
Date of Service June 26, 2024 Anesthesia Post Procedure Vital Signs Vital Signs: Temp Pulse Pulse Pulse Resp BP BP 06/26/24 15:05 116 H 19 109/76 06/26/24 14:55 116 H 17 107/74 06/26/24 14:45 115 H 18 130/86 06/26/24 14:35 37.1 C 114 H 19 103/88 06/26/24 14:25 114 H 20 112/88 06/26/24 14:15 113 H 25 H 125/83 06/26/24 14:06 36.6 C 113 H 25 H 129/85 06/26/24 11:28 36.8 C 120 H 22 124/82 06/26/24 07:52 118 H 17 06/26/24 03:49 36.4 C L 114 H 19 105/72 06/26/24 02:58 115 H 06/25/24 22:54 36.3 C L 120 H 20 119/82 06/25/24 21:47 113 H 06/25/24 21:45 06/25/24 20:17 109 H 21 06/25/24 16:39 36.7 C 113 H 19 122/79 Pulse Ox O2 Del Method O2 Flow Rate 06/26/24 15:05 93 Oxymask 4 06/26/24 14:55 95 Oxymask 4 06/26/24 14:45 95 Oxymask 4 06/26/24 14:35 94 Oxymask 4 06/26/24 14:25 93 Oxymask 5 06/26/24 14:15 92 Oxymask 10 06/26/24 14:06 89 L Oxymask 10 06/26/24 11:28 91 Oxymask 5 06/26/24 07:52 90 Nasal Cannula 2 06/26/24 03:49 94 Nasal Cannula 2 06/26/24 02:58 06/25/24 22:54 92 Nasal Cannula 2 06/25/24 21:47 06/25/24 21:45 Nasal Cannula 2 06/25/24 20:17 95 Nasal Cannula 2 06/25/24 16:39 90 Nasal Cannula 2.0 Pain Intensity Throat: Pain Intensity: 4 Transfer of Care Handoff Completed per policy Notes Mental Status: alert / awake / arousable Patient Amnestic to Procedure: Yes Nausea / Vomiting: adequately controlled Pain: adequately controlled Airway Patency, RR, SpO2: stable & adequate BP & HR: stable & adequate Hydration State: stable & adequate Anesthetic Complications: no major complications apparent
[2024-06-26] MEDS ORDERED: MoRPHine SULFATE 4 MG/ML 1 ML CARP\\VIAL IV PRN (15:22)
[2024-06-26] MEDS: SODIUM PHOSPHATE 15 MMOL in SODIUM CHLORIDE 0.9% 250 ML IV ONE (15:39)
[2024-06-26] MEDS ORDERED: DEXTROSE 10% 1,000 ML IV PRN (16:00)
[2024-06-26] MEDS: [UNRECOGNIZED DRUG - OTHER] IV SCH (18:04)
[2024-06-26] MEDS: CLINOLIPID 20% IV FAT EMULSION 250 ML IV SCH (18:04)
[2024-06-26] MEDS: PERIPHERAL TPN IV SCH (18:04)
[2024-06-26] MEDS ORDERED: guaiFENesin SUGAR FREE 200 MG/10 ML UDC NG PRN (18:49)
[2024-06-26] MEDS: LEVALBUTEROL 1.25 MG/3 ML NEB NEB SCH (20:12)
[2024-06-26] MEDS: IPRATROPIUM BROMIDE NEB SOLN 0.02% 0.5MG/2.5ML VIAL NEB SCH (20:12)
[2024-06-26] MEDS: BACLOFEN 20 MG TAB GT SCH (20:25)
[2024-06-26] MEDS: BACLOFEN 10 MG TAB GT SCH (20:26)
[2024-06-26] MEDS: VALPROATE SOD IV SCH (20:51)
[2024-06-26] MEDS: DEXTROSE 5% IV SCH (20:51)
[2024-06-26] MEDS: STOP CLINOLIPID SCH (22:25)
[2024-06-26] MEDS: MoRPHine SULFATE 2 MG/ML CARP IV PRN (22:55)
[2024-06-27 06:08] LABS: Hematocrit (blood only) 29.5 % (37.0-47.0); Hemoglobin 10.1 g/dl (12.0-16.0); Mean Corpuscular Hemoglobin 31.8 pg (25.0-34.0); Mean Corpuscular Hgb Conc 34.2 g/dL (32.0-36.0); Mean Corpuscular Volume 92.8 fL (80.0-100.0); Mean Platelet Volume 9.8 fL (9.4-12.4); Nucleated RBC # (auto) 0.03 K/uL (0.00-0.12); Nucleated RBC % (auto) 0.1 %; Platelet Count 504 K/uL (130-400); RDW Coefficient of Variation 18.2 % (11.5-14.5); Red Blood Count 3.18 M/uL (4.20-5.40)
[2024-06-27 06:23] LABS: BUN Creatinine Ratio 57.1 (10-20); Calcium 7.8 mg/dl (8.6-10.3); Magnesium 1.9 mg/dl (1.7-2.4); Phosphorus 3.2 mg/dl (2.5-4.9); Potassium 4.2 mmol/L (3.5-5.1)
[2024-06-27] MEDS: ACETAMINOPHEN 1,000 MG/100 ML VIAL IV PRN (07:50)
[2024-06-27] MEDS: cefOXitin 2,000 MG in DEXTROSE 5 % MINI-B 50 ML IV SCH (09:21)
--- NOTE | 2024-06-27 10:37 | Hospitalist Progress Note ---
Date of Service June 27, 2024 Assessment & Plan (1) SBO (small bowel obstruction): Plan: POD #1 s/p Exploratory Laparotomy, Release of Small Bowel Obstruction, Closure of enterotomy, Replacement of Jejunostomy tube by Dr. Sandoval NG tube remains in place J-tube feedings are on hold strict NPO status except necessary meds via NG tube cont PPN appreciate general surgery assistance (2) Jejunostomy tube present: Plan: POD #3 s/p open J-tube placement by Dr Sandoval unfortunately had to go back to the OR on 06/26 for removal of original J-tube as this was causing a SBO new J-tube site created had been tolerating her Peptamen 1.5 tube feedings and had reached goal of 40ml/hr continuously prior to developing the SBO tube feedings now on hold cont PPN (3) Acute respiratory failure with hypoxia: Plan: at time of admission -- * 2nd to rhinovirus infection with bronchitis * 2nd to aspiration pneumonia / superimposed bacterial pneumonia * +/- pulmonary edema had been resolving, and had finished a course of abx today - worsening leukocytosis and +fever she has increasing O2 requirements as well CXR today - b/l infiltrates worse on right I am concerned that she is developing recurrent pneumonia COVID test negative today surgery had started her on IV cefoxitin for her abdomen will broaden this to cefepime + flagyl IV in addition, will give lasix 20mg IV x 1 for suspected pulmonary edema re-eval tomorrow (4) Rhinovirus: Plan: respiratory [employer] panel + for rhinovirus at time of admission with resulting bronchitis/acute hypoxic resp failure cont droplet precautions although I suspect her rhinovirus is fully resolved at this point (5) Aspiration pneumonia: Plan: CT chest 06/16 with b/l basilar infiltrates especially the RML this was likely bacterial pneumonia in the setting of rhinovirus very high suspicion for aspiration etiology in light of dysphagia completed full course of IV antibiotic therapy earlier this admission I am now concerned she has recurrent pneumonia with worsening hypoxia, worsening O2 requirements, fever, and increasing WBC count cefepime/flagyl NC O2 cont xopenex/atrovent at least BID cont mucomyst BID COVID testing today negative (6) Dysphagia: Plan: per report from the pt's mother/sister & workers from [facility] she had had worsening dysphagia with poor oral intake for several weeks prior to admission now s/p J-tube insertion 06/24/24 this original tube was removed yesterday during her SBO ex lap new J-tube site created yesterday will remain nothing by tube for the weekend PPN only for now see #1 and #2 above (7) Cerebral palsy: Plan: lives at [facility] in [place] non-ambulatory (8) Hypothyroidism (acquired): Plan: TSH 6 in April 2024 TSH and FT4 this admission wnl cont synthroid (9) Esophageal dilatation: Plan: seen on CT chest s/p EGD by GI this admission - esophagus was NORMAL (Gastritis seen only along with gastric polyps) cont PPI (10) Acute metabolic encephalopathy: Plan: 2nd to rhinovirus infection, superimposed bacterial pneumonia, etc. 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 149 on a daily depakote dose of 750mg BID I do not know if this was truly a steady state level [id number] was very high depakote dose reduced to 650mg BID via J-tube reverted the depakote back to IV formulation in light of #1 most recent level - 81 (13) Stridor: Plan: had such earlier this admission -- resolved (14) Urinary tract infection: Plan: 2nd to pansensitive e.coli resolved completed full course of IV abx therapy spaulding placed today repeat u/a obtained - not suspicious for UTI Plan DVT prophylaxis: Heparin 5000 units subcutaneous twice daily pt's family updated at bedside I also updated the pt's mother by phone late this evening prognosis is guarded Admission and Anticipated Discharge Date Admission Date: June 11, 2024 Subjective tele overnight - sinus tach pt's mother & sister were at bedside during the visit [place] was somewhat lethargic during my rounds occasionally would try to mumble something to her family staff report cough and times of dyspnea NG tube draining bilious material Review of Systems Review of Systems: Unobtainable due to cognitive status Physical Exam Physical Exam: gen - lethargic, ill-appearing, dysmorphic in appearance, NG tube in place; NC O2 in place mouth - MMM neck - no JVD heart - tachycardic, s1 s2, no murmur lungs - significantly decreased BS R base, L base with normal airation; rales & wheezes b/l; tachypnea present abd - distended, BS+ but quite diminished, no obvious tenderness; tympanic to percussion; dressings intact around J-tube site; no HSM ext - 1+ edema b/l, foot deformities b/l, pulses b/l feet 2+ musculo - deformities of arms/hands psych - lethargic today Results & Data Results & Data Vital Signs (Past 12 Hours) Vital Signs Temp Pulse Pulse Resp BP Pulse Ox O2 Del Method 06/27/24 07:44 113 H 19 93 Nasal Cannula 06/27/24 07:31 37.9 C H 113 H 18 146/95 H 93 Nasal Cannula 06/27/24 02:33 37.9 C H 116 H 22 131/87 92 Room Air 06/26/24 23:50 37.4 C 118 H 20 116/80 92 Room Air 06/26/24 23:26 Nasal Cannula O2 Flow Rate 06/27/24 07:44 2 06/27/24 07:31 2 06/27/24 02:33 06/26/24 23:50 06/26/24 23:26 2 Laboratory Results Laboratory Results - last 24 hr 06/27/24 06/27/24 06/27/24 05:41 06:09 10:48 WBC 30.50 H* RBC 3.18 L Hgb 10.1 L Hct 29.5 L MCV 92.8 MCH 31.8 MCHC 34.2 RDW Std Deviation 56.0 H RDW Coeff of Christopher 18.2 H Plt Count 504 H MPV 9.8 Absolute Nucleated RBC 0.03 Nucleated RBC % (auto) 0.1 VBG pH 7.39 VBG pCO2 56 H VBG pO2 56 VBG HCO3 34 VBG O2 Saturation 87.8 VBG Base Excess 7.6 Sodium 145 Potassium 4.2 Chloride 107 Carbon Dioxide 33 H Anion Gap 5 BUN 12 Creatinine 0.21 L Est Cr Clr Drug Dosing 215.0 eGFR 132.26 BUN/Creatinine Ratio 57.1 H Glucose 141 H POC Glucose 138 H Lactate 1.5 Calcium 7.8 L Phosphorus 3.2 D Magnesium 1.9 Triglycerides 184 H Urine Color Urine Appearance Urine pH Ur Specific [place] Urine Protein Urine Glucose (UA) Urine Ketones Urine Blood Urine Nitrite Urine Bilirubin Urine Urobilinogen Ur Leukocyte Esterase Urine WBC (Auto) Urine RBC (Auto) U Hyaline Cast (Auto) U Epithel Cells (Auto) Urine Bacteria (Auto) SARS-CoV-2 (PCR) SARS-CoV-2 RNA (RT-PCR) 06/27/24 06/27/24 06/27/24 11:20 11:43 13:36 WBC RBC Hgb Hct MCV MCH MCHC RDW Std Deviation RDW Coeff of Christopher Plt Count MPV Absolute Nucleated RBC Nucleated RBC % (auto) VBG pH VBG pCO2 VBG pO2 VBG HCO3 VBG O2 Saturation VBG Base Excess Sodium Potassium Chloride Carbon Dioxide Anion Gap BUN Creatinine Est Cr Clr Drug Dosing eGFR BUN/Creatinine Ratio Glucose POC Glucose 125 H Lactate Calcium Phosphorus Magnesium Triglycerides Urine Color Dark Yellow Urine Appearance Clear Urine pH 5.5 Ur Specific [place] 1.028 Urine Protein 1+ H Urine Glucose (UA) Negative Urine Ketones Trace H Urine Blood Negative Urine Nitrite Negative Urine Bilirubin Negative Urine Urobilinogen Negative Ur Leukocyte Esterase Negative Urine WBC (Auto) 0-5 Urine RBC (Auto) 3-5 H U Hyaline Cast (Auto) 0-2 U Epithel Cells (Auto) 0-2 Urine Bacteria (Auto) None Seen SARS-CoV-2 (PCR) NEGATIVE SARS-CoV-2 RNA (RT-PCR) Cancelled Diagnostic Findings Chest X-Ray 06/27/24 10:32 XR chest 1V portable HISTORY: 59 years-old Female fever, increasing hypoxia acute fever with hypoxia COMPARISON: 06/21/2024 TECHNIQUE: AP view the chest FINDINGS: The patient is rotated and slightly side bent. Distal tip of enteric tube projects over the expected location of the gastric body. Area layering pleural effusions with bibasilar consolidation. Degenerative changes of the shoulders and spine. Partially imaged midline skin shantel with linear radiodense structure, possibly a surgical sponge. IMPRESSION: 1. Distal tip of enteric tube projects over the gastric body. 2. Cardiomegaly with pulmonary vascular congestion. 3. Small pleural effusions with bibasilar opacities. ACT 112: Negative or not required by law. The above report was generated using voice recognition software. It may contain grammatical, syntax or spelling errors. Electronically signed by: Eduin Wick M.D. 06/27/2024 11:10 AM PG Care Time/CCT Total # of Minutes Spent Total Time Spent with Patient: Total time spent is greater than 50% in coordination of care (as documented) at patient's floor/unit and/or counseling patient: Coding Level of Care Code 93268 SUB INP/OBS CARE 3/50MIN Diagnoses SBO (small bowel obstruction) K56.609 Jejunostomy tube present Z93.4 Acute respiratory failure with hypoxia J96.01 Rhinovirus B34.8 Aspiration pneumonia J69.0 Aspiration pneumonia type: unspecified Laterality: right Lung location: unspecified part of lung Dysphagia R13.10 Cerebral palsy G80.9 Cerebral palsy type: unspecified type Hypothyroidism (acquired) E03.9 Esophageal dilatation K22.89 Acute metabolic encephalopathy G93.41 GERD (gastroesophageal reflux disease) K21.9 Valproic acid toxicity T42.6X1A Stridor R06.1 Urinary tract infection N30.00 Hematuria presence: without hematuria Urinary tract infection type: acute cystitis (5) Aspiration pneumonia Aspiration pneumonia type: unspecified Laterality: right Lung location: unspecified part of lung Qualified Code(s): J69.0 - Pneumonitis due to inhalation of food and vomit (7) Cerebral palsy Cerebral palsy type: unspecified type Qualified Code(s): G80.9 - Cerebral palsy, unspecified (14) Urinary tract infection Hematuria presence: without hematuria Urinary tract infection type: acute cystitis Qualified Code(s): N30.00 - Acute cystitis without hematuria
[2024-06-27 11:00] LABS: Base Excess VBG 7.6 mEq/L; HCO3 VBG 34 mmol/L; Oxygen Saturation VBG 87.8 %; PCO2 VBG 56 mmHg (38-50); PO2 VBG 56 mmHg; pH VBG 7.39 (7.36-7.41)
--- NOTE | 2024-06-27 11:11 | XRay Report ---
XR chest 1V portable HISTORY: 59 years-old Female fever, increasing hypoxia acute fever with hypoxia COMPARISON: 06/21/2024 TECHNIQUE: AP view the chest FINDINGS: The patient is rotated and slightly side bent. Distal tip of enteric tube projects over the expected location of the gastric body. Area layering pleural effusions with bibasilar consolidation. Degenerat jayson changes of the shoulders and spine. Partially imaged midline skin shantel with linear radiodense structure, possibly a surgical sponge. IMPRESSION: 1. Distal tip of enteric tube projects over the gastric body. 2. Cardiomegaly with pulmonary vascular congestion. 3. Small pleural effusions with bibasilar opacities. ACT 112: Negative or not required by law. The above report was generated using voice recognition software. It may contain grammatical, syntax o r spelling errors. Electronically signed by: Eduin Wick M.D. 06/27/2024 11:10 AM
--- NOTE | 2024-06-27 12:12 | Surgery Progress Note ---
Date of Service June 27, 2024 Assessment & Plan (1) SBO (small bowel obstruction): (2) Jejunostomy tube present: Plan POD #3 status post jejunostomy tube placement; POD #1 status post exploratory laparotomy with revision of jejunostomy tube seems to be doing okay Monitor fevers, white blood cell count 30 Admission and Anticipated Discharge Date Admission Date: June 11, 2024 Subjective seems to be doing well. Resting comfortably in bed. Positive fevers overnight. Physical Exam 2 Physical Exam: AFVSS NCAT Abdomen: Soft, mild TTP Nondistended Dressing C/D/I Results & Data Vital Signs (Past 12 Hours) Vital Signs Temp Pulse Pulse Resp BP BP Pulse Ox 06/27/24 11:14 37.1 C 107 H 16 141/85 H 141/85 H 94 06/27/24 07:44 113 H 19 93 06/27/24 07:31 37.9 C H 113 H 18 146/95 H 93 06/27/24 02:33 37.9 C H 116 H 22 131/87 92 O2 Del Method O2 Flow Rate 06/27/24 11:14 Nasal Cannula 06/27/24 07:44 Nasal Cannula 2 06/27/24 07:31 Nasal Cannula 2 06/27/24 02:33 Room Air Laboratory Results 06/27/24 06/27/24 06/27/24 Range/Units 11:43 11:20 10:48 WBC (4.8-10.8) K/ul RBC (4.20-5.40) M/uL Hgb (12.0-16.0) g/dl Hct (37.0-47.0) % MCV (80.0-100.0) fL MCH (25.0-34.0) pg MCHC (32.0-36.0) g/dL RDW Std Deviation (36.4-46.3) fL RDW Coeff of Christopher (11.5-14.5) % Plt Count (130-400) K/uL MPV (9.4-12.4) fL Absolute Nucleated RBC (0.00-0.12) K/uL Nucleated RBC % (auto) % VBG pH 7.39 (7.36-7.41) VBG pCO2 56 H (38-50) mmHg VBG pO2 56 mmHg VBG HCO3 34 mmol/L VBG O2 Saturation 87.8 % VBG Base Excess 7.6 mEq/L Sodium (136-145) mmol/L Potassium (3.5-5.1) mmol/L Chloride (98-107) mmol/L Carbon Dioxide (21-32) mmol/L Anion Gap (3-11) BUN (6-23) mg/dl Creatinine (0.6-1.2) mg/dl Est Cr Clr Drug Dosing ml/min eGFR BUN/Creatinine Ratio (10-20) Glucose (70-99(Fasting)) mg/dl POC Glucose 125 H (70-99) mg/dl Lactate 1.5 (0.4-2.0) mmol/L Calcium (8.6-10.3) mg/dl Phosphorus (2.5-4.9) mg/dl Magnesium (1.7-2.4) mg/dl Triglycerides 184 H (0-150) mg/dl SARS-CoV-2 (PCR) Pending SARS-CoV-2 RNA (RT-PCR) Cancelled 06/27/24 06/27/24 06/27/24 Range/Units 06:09 05:41 01:11 WBC 30.50 H* (4.8-10.8) K/ul RBC 3.18 L (4.20-5.40) M/uL Hgb 10.1 L (12.0-16.0) g/dl Hct 29.5 L (37.0-47.0) % MCV 92.8 (80.0-100.0) fL MCH 31.8 (25.0-34.0) pg MCHC 34.2 (32.0-36.0) g/dL RDW Std Deviation 56.0 H (36.4-46.3) fL RDW Coeff of Christopher 18.2 H (11.5-14.5) % Plt Count 504 H (130-400) K/uL MPV 9.8 (9.4-12.4) fL Absolute Nucleated RBC 0.03 (0.00-0.12) K/uL Nucleated RBC % (auto) 0.1 % VBG pH (7.36-7.41) VBG pCO2 (38-50) mmHg VBG pO2 mmHg VBG HCO3 mmol/L VBG O2 Saturation % VBG Base Excess mEq/L Sodium 145 (136-145) mmol/L Potassium 4.2 (3.5-5.1) mmol/L Chloride 107 (98-107) mmol/L Carbon Dioxide 33 H (21-32) mmol/L Anion Gap 5 (3-11) BUN 12 (6-23) mg/dl Creatinine 0.21 L (0.6-1.2) mg/dl Est Cr Clr Drug Dosing 215.0 ml/min eGFR 132.26 BUN/Creatinine Ratio 57.1 H (10-20) Glucose 141 H (70-99(Fasting)) mg/dl POC Glucose 138 H 149 H (70-99) mg/dl Lactate (0.4-2.0) mmol/L Calcium 7.8 L (8.6-10.3) mg/dl Phosphorus 3.2 D (2.5-4.9) mg/dl Magnesium 1.9 (1.7-2.4) mg/dl Triglycerides (0-150) mg/dl SARS-CoV-2 (PCR) SARS-CoV-2 RNA (RT-PCR) 06/26/24 Range/Units 17:38 WBC (4.8-10.8) K/ul RBC (4.20-5.40) M/uL Hgb (12.0-16.0) g/dl Hct (37.0-47.0) % MCV (80.0-100.0) fL MCH (25.0-34.0) pg MCHC (32.0-36.0) g/dL RDW Std Deviation (36.4-46.3) fL RDW Coeff of Christopher (11.5-14.5) % Plt Count (130-400) K/uL MPV (9.4-12.4) fL Absolute Nucleated RBC (0.00-0.12) K/uL Nucleated RBC % (auto) % VBG pH (7.36-7.41) VBG pCO2 (38-50) mmHg VBG pO2 mmHg VBG HCO3 mmol/L VBG O2 Saturation % VBG Base Excess mEq/L Sodium (136-145) mmol/L Potassium (3.5-5.1) mmol/L Chloride (98-107) mmol/L Carbon Dioxide (21-32) mmol/L Anion Gap (3-11) BUN (6-23) mg/dl Creatinine (0.6-1.2) mg/dl Est Cr Clr Drug Dosing ml/min eGFR BUN/Creatinine Ratio (10-20) Glucose (70-99(Fasting)) mg/dl POC Glucose 128 H (70-99) mg/dl Lactate (0.4-2.0) mmol/L Calcium (8.6-10.3) mg/dl Phosphorus (2.5-4.9) mg/dl Magnesium (1.7-2.4) mg/dl Triglycerides (0-150) mg/dl SARS-CoV-2 (PCR) SARS-CoV-2 RNA (RT-PCR)
[2024-06-27] MEDS: PANTOprazole 40 MG in SYRINGE 0 ML IV SCH (13:13)
[2024-06-27] MEDS: CEFEPIME 2000MG 2,000 MG/20 ML SYR IV SCH (15:21)
[2024-06-27] MEDS: metroNIDAZOLE 500 MG/100 ML BAG IV SCH (15:21)
[2024-06-27 15:24] LABS: Appearance Urine Clear (Clear); Bilirubin Urine Negative (Negative); Blood Urine Negative (Negative); Color Urine Dark Yellow; Glucose Urine UA Negative (Negative); Ketones Urine Trace (Negative); Leukocyte Esterase Urine Negative (Negative); Nitrite Urine Negative (Negative); Protein Urine 1+ (Negative); Specific Gravity Urine 1.028 (1.000-1.030); Urobilinogen Urine Negative (Negative); WBC Urine Automated 0-5 /hpf (0-5); pH Urine 5.5 (4.5-7.5)
[2024-06-27 15:25] LABS: Bacteria Urine Automated None Seen (None Seen); Cast Urine Automated 0-2 /lpf (0-2); Epithelial Cell Urine Auto 0-2 /hpf (0-2)
[2024-06-27] MEDS: PERIPHERAL TPN IV SCH (16:12)
[2024-06-27] MEDS: CLINOLIPID 20% IV FAT EMULSION 250 ML IV SCH (16:12)
[2024-06-27] MEDS: [UNRECOGNIZED DRUG - OTHER] IV SCH (16:12)
[2024-06-27] MEDS: FUROSEMIDE INJ 20 MG/2 ML VIAL IV ONE (18:11)
--- NOTE | 2024-06-28 04:17 | Communication Note ---
Date of Service: June 28, 2024 Notified by nursing that patient had an increased oxygen requirement from 5L to 8L oxymask. Went to bedside at approximately 4:30am, patient nonverbal at baseline. Upper airway/gurgling noises noted, decreased breath sounds at anterior lung anglin to auscultation. Chest x-ray obtained, R lung field appears worse from x-ray on 06/27, however unsure if patient is more rotated in the new x-ray which may be altering the view. Suspect that pleural effusion is worsening. Will order additional Lasix 20 IV and dose of albumin considering her lower BP. Discussed case with attending physician. At approximately 6:00am, a code purple was called as patient had significant oxygen desaturation to 702-80s. Placed on 15L nonrebreather. Went to bedside, patient was responsive to stimuli. Patient had not received Lasix/albumin yet prior to code. BP has more stable 120s/70s at bedside, so an additional 20mg lasix ordered for a total of 40mg. CT chest ordered and CT a/p ordered due to concern of third spacing. Will re-consult pulmonology. Morning labs collected at time of code, results pending. Resident Activity Tracking Resident Involvement: Resident Care Provided Care Provided: Adult [facility] Medicine
[2024-06-28] MEDS: FUROSEMIDE INJ 20 MG/2 ML VIAL IV ONE ×2 (06:28→06:30)
[2024-06-28] MEDS ORDERED: Nursing to Pharmacy Communication SCH (06:30)
[2024-06-28] MEDS: ALBUMIN 25% 25 GM/100 ML VIAL IV ONE (06:31)
[2024-06-28 07:05] LABS: Basophils # (auto) 0.06 K/uL (0.00-0.20); Basophils % (auto) 0.3 %; Eosinophils # (auto) 0.02 K/uL (0.00-0.50); Eosinophils % (auto) 0.1 %; Hematocrit (blood only) 30.2 % (37.0-47.0); Hemoglobin 10.1 g/dl (12.0-16.0); Immature Granulocytes # (auto) 0.19 K/uL (0.01-0.20); Immature Granulocytes % (auto) 0.8 %; Lymphocytes # (auto) 4.35 K/uL (1.20-3.40); Lymphocytes % (auto) 19.3 %; Mean Corpuscular Hemoglobin 31.7 pg (25.0-34.0); Mean Corpuscular Hgb Conc 33.4 g/dL (32.0-36.0); Mean Corpuscular Volume 94.7 fL (80.0-100.0); Mean Platelet Volume 9.9 fL (9.4-12.4); Monocytes # (auto) 1.52 K/uL (0.11-0.59); Monocytes % (auto) 6.7 %; Neutrophils # (auto) 16.41 K/uL (1.40-6.50); Neutrophils % (auto) 72.8 %; Platelet Count 441 K/uL (130-400); RDW Coefficient of Variation 17.7 % (11.5-14.5); RDW Standard Deviation 58.8 fL (36.4-46.3); Red Blood Count 3.19 M/uL (4.20-5.40); White Blood Count 22.55 K/ul (4.8-10.8)
[2024-06-28 07:18] VITALS: BP 161/76; PULSE 139; RESP 22
[2024-06-28 07:19] VITALS: O2SAT 91
[2024-06-28 07:21] LABS: Albumin Globulin Ratio 0.9 (0.9-2); Albumin Level 3.1 gm/dl (3.4-5.0); BUN Creatinine Ratio 45.8 (10-20); Bilirubin,Total 0.5 mg/dl (0.2-1.0); Calcium 8.5 mg/dl (8.6-10.3); Creatinine Clr Calc Pharmacy 188.1 ml/min; Globulin 3.3 gm/dl (2.5-4.0); Potassium 4.2 mmol/L (3.5-5.1); Total Protein 6.4 gm/dl (6.0-8.3)
[2024-06-28 07:36] LABS: Partial Thromboplastin Ratio 1.1; Partial Thromboplastin Time 29 Seconds (21-31); Prothrombin Time 10.4 Seconds (9.0-12.0)
[2024-06-28 07:36] LABS: BUN Creatinine Ratio 47.8 (10-20); Calcium 8.4 mg/dl (8.6-10.3); Creatinine Clr Calc Pharmacy 196.3 ml/min; Magnesium 1.7 mg/dl (1.7-2.4); Phosphorus 1.9 mg/dl (2.5-4.9); Potassium 4.3 mmol/L (3.5-5.1)
--- NOTE | 2024-06-28 08:00 | Pulmonology Progress Note ---
Date of Service June 28, 2024 Assessment & Plan (1) Rhinovirus: (2) Multifocal pneumonia: (3) Cerebral palsy: Cerebral palsy type: unspecified type Qualified Code(s): G80.9 - Cerebral palsy, unspecified (4) Aspiration pneumonia: Aspiration pneumonia type: unspecified Laterality: right Lung location: unspecified part of lung Qualified Code(s): J69.0 - Pneumonitis due to inhalation of food and vomit (5) Abnormal chest CT: (6) Acute respiratory failure with hypoxia: (7) Aspiration into airway: Plan CT chest 06/28/2024 personally reviewed: Collapse of the right middle and right lower lobe Significant endobronchial obstruction of the right main going into the RBI Consolidative changes appreciated in the right lower lobe as well as left lower lobe Significantly dilated esophagus No significant mediastinal lymphadenopathy -- Atelectasis/collapse of the right middle lobe and right lower lobe Likely from aspiration Continue with CoughAssist -- Multilobar pneumonia Respiratory bio fire was positive for entero-/rhinovirus, negative for everything else Nasal MRSA negative, procalcitonin 26.2 BNP 457 --Stridor --> resolved with suctioning and CoughAssist No clear abnormality appreciated on the CT chest at least till the glottis and subglottic Patient does seem to have significant phlegm and she is not able to clear it Will try the above measures along with naso- pharyngeal suctioning Plan: CT chest from today does show significant plugging of the RBI with atelectasis of the right middle as well as right lower lobe I think she is aspirating. I had an in-depth discussion with large patient's family in the room. They do understand that patient overall functional status is not good. She is high risk for aspiration even after PEG tube placement. Bronchoscopy could be thought of but it would be a temporary measure as she can have aspiration episode in couple of hours and ended up with collapsed lung again. They understand and would like to proceed with keeping the patient comfortable. They prefer inpatient hospice. This was relayed to primary team as well as RN at bedside Please note the above document was generated using voice recognition software. It may contain grammatical, syntax or spelling errors.Any formal questions or concerns about the content, text or information contained within the body of this dictation should be directly addressed to the provider for clarification. Admission and Anticipated Discharge Date Admission Date: June 11, 2024 Review of Systems 2 Review of Systems: Unobtainable due to cognitive status Physical Exam 2 Physical Exam: Constitutional: No acute distress HEENT: EOMI, PERRLA, no stridor Respiratory system: Decreased air entry bilaterally, no rhonchi, no wheeze, positive crackles bilaterally CVS: S1-S2 positive, no murmurs or gallops Abdomen: Soft, nontender, nondistended, positive bowel sounds x4, positive jejunostomy Extremities: +2 pulses bilaterally radialis/ dorsalis pedis, no cyanosis, minimal pitting bilateral pedal edema Neuro: Alert, opening eyes, coughing Psych: Unable to assess G/U: Positive Camacho Musculoskeletal: Contracted upper and lower extremities Skin: no rashes, warm and dry Lymphatic: no cervical or axillary lymphadenopathy Results & Data Results & Data Vital Signs (Past 12 Hours) Vital Signs Temp Pulse Pulse Pulse Resp BP Pulse Ox 06/28/24 06:50 91 06/28/24 06:00 37.7 C H 139 H 22 161/76 H 86 L 06/28/24 02:18 36.6 C 113 H 16 105/66 93 06/27/24 23:05 37.1 C 118 H 16 101/63 90 06/27/24 22:10 94 06/27/24 22:05 87 L 06/27/24 21:45 121 H 06/27/24 20:53 37.9 C H 06/27/24 20:30 O2 Del Method O2 Flow Rate 06/28/24 06:50 Non-rebreather 15 06/28/24 06:00 Non-rebreather 15 06/28/24 02:18 Oxymask 5 06/27/24 23:05 Oxymask 5 06/27/24 22:10 Oxymask 6 06/27/24 22:05 Nasal Cannula 5 06/27/24 21:45 06/27/24 20:53 06/27/24 20:30 Nasal Cannula 5 Laboratory Results 06/28/24 06:19 06/28/24 06:36 PG Care Time/CCT Total # of Minutes Spent Total Time Spent with Patient: Total time spent is greater than 50% in coordination of care (as documented) at patient's floor/unit and/or counseling patient: Coding Level of Care Code 45422 SUB INP/OBS CARE 3/50MIN Diagnoses Rhinovirus B34.8 Multifocal pneumonia J18.9 Cerebral palsy G80.9 Cerebral palsy type: unspecified type Aspiration pneumonia J69.0 Aspiration pneumonia type: unspecified Laterality: right Lung location: unspecified part of lung Abnormal chest CT R93.89 Acute respiratory failure with hypoxia J96.01 Aspiration into airway T17.908A
[2024-06-28 08:13] LABS: Troponin I High Sensitivity 17.9 pg/ml (0-14)
--- NOTE | 2024-06-28 08:13 | Hospitalist Progress Note ---
Date of Service June 28, 2024 Assessment & Plan (1) Acute respiratory failure with hypoxia: Plan: at time of admission -- * 2nd to rhinovirus infection with bronchitis * 2nd to aspiration pneumonia / superimposed bacterial pneumonia * 2nd to pulmonary edema had been resolving, and had finished a course of abx for the bacterial pneumonia earlier in the admission last 36 hours - worsening respiratory status with increased work of breathing, worsening hypoxia, escalating O2 requirements, etc. serial CXRs with worsening infiltrates on right leading to complete collapse of most of the right lung CT chest confirmed extensive mucous plugging in the right-sided bronchial tree in addition to mucous plugging/right-sided collapse there is likely right-sided pneumonia from aspiration small-moderate effusion noted on CT chest; can't exclude pulmonary edema the main culprit in her worsening status is mucous plugging leading to collapse after much discussion with her family (myself & Dr Friend) a decision was made by her mom/dad/siblings to NOT pursue aggressive measures (bronch, etc) instead, will transition Beulah to a comfort care pathway (see below) (2) Mucus plugging of bronchi: Plan: extensive, right-sided bronchial tree see above (3) Aspiration into airway: Plan: with resulting mucous plugging, aspiration pneumonia, and worsening respiratory failure all abx to be stopped --> transitioning to comfort care measures (4) Comfort measures only status: Plan: will stop vitals, blood draws, NG tube, etc. morphine IV prn pain/dyspnea ativan IV prn agitation zofran prn cont oxygen etc wild oyster harvester was called and did come to bedside to provide spiritual support (5) Palliative care patient: Plan: transitioning to comfort care pathway this afternoon (6) SBO (small bowel obstruction): Plan: POD #2 s/p Exploratory Laparotomy, Release of Small Bowel Obstruction, Closure of enterotomy, Replacement of Jejunostomy tube by Dr. Sandoval NG tube d/c earlier today by Dr Friend transitioning to comfort care pathway (7) Jejunostomy tube present: Plan: POD #4 s/p open J-tube placement by Dr Sandoval unfortunately had to go back to the OR on 06/26 for removal of original J-tube as this was causing a SBO new J-tube site created stop PPN (8) Rhinovirus: Plan: respiratory [employer] panel + for rhinovirus at time of admission with resulting bronchitis/acute hypoxic resp failure (9) Aspiration pneumonia: Plan: CT chest 06/16 with b/l basilar infiltrates especially the RML this was likely bacterial pneumonia in the setting of rhinovirus received full abx course for such now with recurrent aspiration pneumonia/mucous plugging/right-sided collapse as above stopping abx stopping nebs stopping cough assist machine etc focus on comfort and Rx of distress (10) Dysphagia: Plan: per report from the pt's mother/sister & workers from [facility] she had had worsening dysphagia with poor oral intake for several weeks prior to admission s/p J-tube insertion 06/24/24 (11) Cerebral palsy: Plan: long-time resident of [facility] in [place] (12) Hypothyroidism (acquired): Plan: stop synthroid (13) Esophageal dilatation: Plan: seen on CT chest (14) Acute metabolic encephalopathy: Plan: 2nd to rhinovirus infection, superimposed bacterial pneumonia, toxic effects from depakote when her level was >100 (early in admission), hypoxia, etc. (15) GERD (gastroesophageal reflux disease): (16) Valproic acid toxicity: Plan: initial level was 149 on a daily depakote dose of 750mg BID early in the stay depakote dose reduced in response to that toxic level with improvement to level of 81 cont depakote IV for now (17) Urinary tract infection: Plan: 2nd to pansensitive e.coli completed full course of IV abx therapy cont spaulding Plan DVT prophylaxis: stop Heparin SC - transitioning to comfort care pathway can d/c tele, move to med/surg for comfort care measures total time today spent on all care activities including multiple visits, multiple phone calls to specialists (ICU, gen surg, etc), etc - 100 minutes Admission and Anticipated Discharge Date Admission Date: June 11, 2024 Subjective events of overnight noted Beulah had worsening hypoxia and worsening respiratory status thru the night leading to code purple early this am underwent CT chest/abd/pelvis, EKG, cxr received IV lasix now on 100% non-rebreather mask I was at the bedside multiple times throughout the day today first visit was just before 8am during that visit Beulah had her eyes open, but was in distress, and at times was crying she seemed very uncomfortable (tachypneic, etc) morphine 2mg IV x 1 given with improved distress following this visit I called the pt's mother & sister I told them about the events of the night explained that her situation was dire and asked them to come to the hospital explained that she would need a bronchoscopy to get through her current illness around this time I was in frequent communication with Dr Frined from pulmonary about 60-90 minutes later I met with the pt's mother and the pt's siblings at bedside I showed them Beulah's CXRs explained she would need transfer to ICU for the bronch, etc. explained "best-case" scenario vs worst case scenarios to her family further, I discussed with them that even if bronch was done & it was successful she likely would have more mucous plugging in the future, pneumonias, etc. they asked for wild oyster harvester consult and also to speak with Dr Friend I later learned that after Dr Friend met with them that they opted for a comfort care pathway comfort care measures then were ordered for Beulah late in the day I went to bedside again Beulah was doing some moaning and was having mild grunting family asked if she would be a candidate to return back to [facility] for end [facility] life [facility] explained that this likely would not be possible due to her O2 requirements, frequent IV morphine usage, and current status I counseled them there was a good chance she would need a continuous morphine infusion perhaps as early as tonight Review of Systems Review of Systems: Unobtainable due to cognitive status Physical Exam Physical Exam: gen - in distress, grunting, moaning, crying, tachypneic nose - NG tube in place face - 100% non-rebreather in place neck - no JVD heart - tachycardic, s1 s2, no murmur lungs - no air movement right hemithorax; L base with normal airation; rales & wheezes on left; tachypnea present; grunting abd - distended, BS+ but quite diminished, no obvious tenderness; tympanic to percussion; dressings intact ext - 1+ edema b/l, foot deformities b/l, pulses b/l feet 2+ musculo - deformities of arms/hands psych - distressed Results & Data Results & Data Vital Signs (Past 12 Hours) Vital Signs Temp Pulse Pulse Pulse Resp BP Pulse Ox 06/28/24 06:50 91 06/28/24 06:00 37.7 C H 139 H 22 161/76 H 86 L 06/28/24 02:18 36.6 C 113 H 16 105/66 93 06/27/24 23:05 37.1 C 118 H 16 101/63 90 06/27/24 22:10 94 06/27/24 22:05 87 L 06/27/24 21:45 121 H 06/27/24 20:53 37.9 C H 06/27/24 20:30 O2 Del Method O2 Flow Rate 06/28/24 06:50 Non-rebreather 15 06/28/24 06:00 Non-rebreather 15 06/28/24 02:18 Oxymask 5 06/27/24 23:05 Oxymask 5 06/27/24 22:10 Oxymask 6 06/27/24 22:05 Nasal Cannula 5 06/27/24 21:45 06/27/24 20:53 06/27/24 20:30 Nasal Cannula 5 Laboratory Results Laboratory Results - last 24 hr 06/27/24 06/27/24 06/27/24 10:48 11:20 11:43 WBC RBC Hgb Hct MCV MCH MCHC RDW Std Deviation RDW Coeff of Christopher Plt Count MPV Immature Gran % (Auto) Neut % (Auto) Lymph % (Auto) Otero % (Auto) Eos % (Auto) Baso % (Auto) Neut # (Auto) Lymph # (Auto) Otero # (Auto) Eos # (Auto) Baso # (Auto) Immature Gran # (Auto) PT INR APTT PTT Ratio VBG pH 7.39 VBG pCO2 56 H VBG pO2 56 VBG HCO3 34 VBG O2 Saturation 87.8 VBG Base Excess 7.6 Sodium Potassium Chloride Carbon Dioxide Anion Gap BUN Creatinine Est Cr Clr Drug Dosing eGFR BUN/Creatinine Ratio Glucose POC Glucose 125 H Lactate 1.5 Calcium Phosphorus Magnesium Total Bilirubin AST ALT Alkaline Phosphatase Troponin I High Sens Total Protein Albumin Globulin Albumin/Globulin Ratio Triglycerides 184 H Urine Color Urine Appearance Urine pH Ur Specific [place] Urine Protein Urine Glucose (UA) Urine Ketones Urine Blood Urine Nitrite Urine Bilirubin Urine Urobilinogen Ur Leukocyte Esterase Urine WBC (Auto) Urine RBC (Auto) U Hyaline Cast (Auto) U Epithel Cells (Auto) Urine Bacteria (Auto) SARS-CoV-2 (PCR) NEGATIVE SARS-CoV-2 RNA (RT-PCR) Cancelled 06/27/24 06/27/24 06/27/24 13:36 19:54 23:41 WBC RBC Hgb Hct MCV MCH MCHC RDW Std Deviation RDW Coeff of Christopher Plt Count MPV Immature Gran % (Auto) Neut % (Auto) Lymph % (Auto) Otero % (Auto) Eos % (Auto) Baso % (Auto) Neut # (Auto) Lymph # (Auto) Otero # (Auto) Eos # (Auto) Baso # (Auto) Immature Gran # (Auto) PT INR APTT PTT Ratio VBG pH VBG pCO2 VBG pO2 VBG HCO3 VBG O2 Saturation VBG Base Excess Sodium Potassium Chloride Carbon Dioxide Anion Gap BUN Creatinine Est Cr Clr Drug Dosing eGFR BUN/Creatinine Ratio Glucose POC Glucose 144 H 137 H Lactate Calcium Phosphorus Magnesium Total Bilirubin AST ALT Alkaline Phosphatase Troponin I High Sens Total Protein Albumin Globulin Albumin/Globulin Ratio Triglycerides Urine Color Dark Yellow Urine Appearance Clear Urine pH 5.5 Ur Specific [place] 1.028 Urine Protein 1+ H Urine Glucose (UA) Negative Urine Ketones Trace H Urine Blood Negative Urine Nitrite Negative Urine Bilirubin Negative Urine Urobilinogen Negative Ur Leukocyte Esterase Negative Urine WBC (Auto) 0-5 Urine RBC (Auto) 3-5 H U Hyaline Cast (Auto) 0-2 U Epithel Cells (Auto) 0-2 Urine Bacteria (Auto) None Seen SARS-CoV-2 (PCR) SARS-CoV-2 RNA (RT-PCR) 06/28/24 06/28/24 06/28/24 06:19 06:36 06:49 WBC 22.55 H RBC 3.19 L Hgb 10.1 L Hct 30.2 L MCV 94.7 MCH 31.7 MCHC 33.4 RDW Std Deviation 58.8 H RDW Coeff of Christopher 17.7 H Plt Count 441 H MPV 9.9 Immature Gran % (Auto) 0.8 Neut % (Auto) 72.8 Lymph % (Auto) 19.3 Otero % (Auto) 6.7 Eos % (Auto) 0.1 Baso % (Auto) 0.3 Neut # (Auto) 16.41 H Lymph # (Auto) 4.35 H Otero # (Auto) 1.52 H Eos # (Auto) 0.02 Baso # (Auto) 0.06 Immature Gran # (Auto) 0.19 PT 10.4 INR 1.0 APTT 29 PTT Ratio 1.1 VBG pH VBG pCO2 VBG pO2 VBG HCO3 VBG O2 Saturation VBG Base Excess Sodium 142 141 Potassium 4.3 4.2 Chloride 101 99 Carbon Dioxide 34 H 35 H Anion Gap 7 7 BUN 11 11 Creatinine 0.23 L 0.24 L Est Cr Clr Drug Dosing 196.3 188.1 eGFR 129.39 128.07 BUN/Creatinine Ratio 47.8 H 45.8 H Glucose 118 H 122 H POC Glucose Lactate 2.1 H* Calcium 8.4 L 8.5 L Phosphorus 1.9 L D Magnesium 1.7 Total Bilirubin 0.5 AST 18 ALT 10 Alkaline Phosphatase 222 H Troponin I High Sens Pending Total Protein 6.4 Albumin 3.1 L Globulin 3.3 Albumin/Globulin Ratio 0.9 Triglycerides Urine Color Urine Appearance Urine pH Ur Specific [place] Urine Protein Urine Glucose (UA) Urine Ketones Urine Blood Urine Nitrite Urine Bilirubin Urine Urobilinogen Ur Leukocyte Esterase Urine WBC (Auto) Urine RBC (Auto) U Hyaline Cast (Auto) U Epithel Cells (Auto) Urine Bacteria (Auto) SARS-CoV-2 (PCR) SARS-CoV-2 RNA (RT-PCR) Diagnostic Findings Chest X-Ray 06/28/24 04:52 XR chest 1V portable HISTORY: 59 years-old Female increasing oxygen requirement acute hypoxia COMPARISON: Chest CT of same day, Chest radiograph 06/27/2024 TECHNIQUE: AP view of the chest FINDINGS: Patient is rotated. Enteric tube distal tip projects over the stomach. Cardiac silhouette is mildly enlarged. There is gaseous distention of the esophagus. Trace left pleural effusion. There is near complete opacification of the right hemithorax with associated volume loss. No overt pulmonary edema. Bones appear grossly intact. IMPRESSION: 1. Near complete opacification of the right hemithorax has progressed from yesterday's exam. Evaluating the same day chest CT this finding is secondary to a combination of consolidation/collapse secondary to mucus plugging with associated small loculated pleural effusion. 2. Trace left pleural effusion with mild left basilar atelectasis. 3. Gaseous distention of the esophagus with enteric tube in place. ACT 112: Negative or not required by law. The above report was generated using voice recognition software. It may contain grammatical, syntax or spelling errors. Electronically signed by: Eduin Wick M.D. 06/28/2024 8:19 AM Abdomen/Pelvis CT 06/28/24 06:18 CT chest diagnostic wo con, CT abd pelvis wo con CT DOSE: 1061.86 mGy.cm CLINICAL HISTORY: 59 years-old Female with hypoxia. Acute hypoxia with chest and abdominal pain TECHNIQUE: Multiaxial CT images of the chest, abdomen and pelvis were performed without contrast. A dose lowering technique was utilized adhering to the principles of ALARA. COMPARISON: Chest radiograph 06/27/2024, CT abdomen and pelvis 06/25/2024 FINDINGS: CT CHEST: Gaseous distention of the esophagus with an enteric tube in place. No thyroid nodule. No pathologically enlarged lymph nodes. Heart is normal in size with moderate coronary artery calcifications. No thoracic aortic aneurysm. Trace left and small to moderate loculated right pleural effusions. Patchy groundglass opacities are noted throughout the left lung, suboptimally evaluated secondary to respiratory motion degradation. There is prominent mucous plugging throughout the right lung bronchi with right lung volume loss and consolidation. Minimal aeration of the superior segment right lower lobe and apical segment right upper lobe. Remainder of the right lung is predominantly collapsed. Unremarkable soft tissues. Degenerative changes of the shoulders and spine. CT ABDOMEN/PELVIS: Limited study without contrast. Respiratory motion artifact also limits the study. No definite postoperative pneumoperitoneum identified. Into midline skin shantel with continuous surgical drainage catheter. The unenhanced spleen, pancreas and adrenal glands are unremarkable. Hepatic steatosis. Malposition of the gallbladder. No hydronephrosis. Decompressed bladder with Spaulding catheter in place. Mild atherosclerosis of the aorta. Distal esophageal wall thickening. The tip of the enteric tube terminates in the proximal gastric body. Dilated fluid-filled loops of small bowel measure up to 3.9 cm, improved compared to the preoperative study. Air and fluid filled loops of large bowel. Colonic diverticulosis without acute diverticulitis. Edema within the mesenteric root with trace ascites. A percutaneous jejunostomy catheter is noted entering the left mid abdomen, distal tip terminating in the right paracentral abdomen on image 196. No drainable postoperative fluid collections. No acute fracture identified. Chronic appearance of the femoral acetabular joints. IMPRESSION: 1. Prominent multifocal mucus plugging throughout the right lung with consolidation and partial collapse. 2. Trace left and [id number] right pleural effusions. 3. Mild patchy groundglass opacities throughout the left lung are likely infectious or inflammatory. 4. There is improving small bowel distention compared to the 06/25/2024 exam suggestive of resolving obstruction/postoperative ileus. 5. Additional findings as above. ACT 112: Negative or not required by law. Electronically signed by: Eduin Wick M.D. 06/28/2024 8:[address] 06/28/24 06:18 CT chest diagnostic wo con, CT abd pelvis wo con CT DOSE: 1061.86 mGy.cm CLINICAL HISTORY: 59 years-old Female with hypoxia. Acute hypoxia with chest and abdominal pain TECHNIQUE: Multiaxial CT images of the chest, abdomen and pelvis were performed without contrast. A dose lowering technique was utilized adhering to the principles of ALARA. COMPARISON: Chest radiograph 06/27/2024, CT abdomen and pelvis 06/25/2024 FINDINGS: CT CHEST: Gaseous distention of the esophagus with an enteric tube in place. No thyroid nodule. No pathologically enlarged lymph nodes. Heart is normal in size with moderate coronary artery calcifications. No thoracic aortic aneurysm. Trace left and small to moderate loculated right pleural effusions. Patchy groundglass opacities are noted throughout the left lung, suboptimally evaluated secondary to respiratory motion degradation. There is prominent mucous plugging throughout the right lung bronchi with right lung volume loss and consolidation. Minimal aeration of the superior segment right lower lobe and apical segment right upper lobe. Remainder of the right lung is predominantly collapsed. Unremarkable soft tissues. Degenerative changes of the shoulders and spine. CT ABDOMEN/PELVIS: Limited study without contrast. Respiratory motion artifact also limits the study. No definite postoperative pneumoperitoneum identified. Into midline skin shantel with continuous surgical drainage catheter. The unenhanced spleen, pancreas and adrenal glands are unremarkable. Hepatic steatosis. Malposition of the gallbladder. No hydronephrosis. Decompressed bladder with Spaulding catheter in place. Mild atherosclerosis of the aorta. Distal esophageal wall thickening. The tip of the enteric tube terminates in the proximal gastric body. Dilated fluid-filled loops of small bowel measure up to 3.9 cm, improved compared to the preoperative study. Air and fluid filled loops of large bowel. Colonic diverticulosis without acute diverticulitis. Edema within the mesenteric root with trace ascites. A percutaneous jejunostomy catheter is noted entering the left mid abdomen, distal tip terminating in the right paracentral abdomen on image 196. No drainable postoperative fluid collections. No acute fracture identified. Chronic appearance of the femoral acetabular joints. IMPRESSION: 1. Prominent multifocal mucus plugging throughout the right lung with consolidation and partial collapse. 2. Trace left and [id number]-[id number] right pleural effusions. 3. Mild patchy groundglass opacities throughout the left lung are likely infectious or inflammatory. 4. There is improving small bowel distention compared to the 06/25/2024 exam suggestive of resolving obstruction/postoperative ileus. 5. Additional findings as above. ACT 112: Negative or not required by law. Electronically signed by: Eduin Wick M.D. 06/28/2024 8:54 AM PG Care Time/CCT Total # of Minutes Spent Total Time Spent with Patient: Total time spent is greater than 50% in coordination of care (as documented) at patient's floor/unit and/or counseling patient: Prolonged Care Time Prolonged Care Time: Yes Total Prolonged Care Time: 100 Coding Level of Care Code 79574 SUB INP/OBS CARE 3/50MIN (25 - SIGNIFICANT, SEPARATELY IDENTIFIABLE ) Diagnoses Acute respiratory failure with hypoxia J96.01 Mucus plugging of bronchi T17.500A Aspiration into airway T17.908A Comfort measures only status Z51.5 Palliative care patient Z51.5 SBO (small bowel obstruction) K56.609 Jejunostomy tube present Z93.4 Rhinovirus B34.8 Aspiration pneumonia J69.0 Aspiration pneumonia type: unspecified Laterality: right Lung location: unspecified part of lung Dysphagia R13.10 Cerebral palsy G80.9 Cerebral palsy type: unspecified type Hypothyroidism (acquired) E03.9 Esophageal dilatation K22.89 Acute metabolic encephalopathy G93.41 GERD (gastroesophageal reflux disease) K21.9 Valproic acid toxicity T42.6X1A Urinary tract infection N30.00 Hematuria presence: without hematuria Urinary tract infection type: acute cystitis Additional Codes Prolonged Care Time - Prolonged Care Time: Yes ([id number]) (9) Aspiration pneumonia Aspiration pneumonia type: unspecified Laterality: right Lung location: unspecified part of lung Qualified Code(s): J69.0 - Pneumonitis due to inhalation of food and vomit (11) Cerebral palsy Cerebral palsy type: unspecified type Qualified Code(s): G80.9 - Cerebral palsy, unspecified (17) Urinary tract infection Hematuria presence: without hematuria Urinary tract infection type: acute cystitis Qualified Code(s): N30.00 - Acute cystitis without hematuria
--- NOTE | 2024-06-28 08:21 | XRay Report ---
XR chest 1V portable HISTORY: 59 years-old Female increasing oxygen requirement acute hypoxia COMPARISON: Chest CT of same day, Chest radiograph 06/27/2024 TECHNIQUE: AP view of the chest FINDINGS: Patient is rotated. Enteric tube distal tip projects over the stomach. Cardiac silhouette is mildly e nlarged. There is gaseous distention of the esophagus. Trace left pleural effusion. There is near com plete opacification of the right hemithorax with associated volume loss. No overt pulmonary edema. Axel lam appear grossly intact. IMPRESSION: 1. Near complete opacification of the right hemithorax has progressed from yesterday's exam. Evaluati ng the same day chest CT this finding is secondary to a combination of consolidation/collapse seconda ry to mucus plugging with associated small loculated pleural effusion. 2. Trace left pleural effusion with mild left basilar atelectasis. 3. Gaseous distention of the esophagus with enteric tube in place. ACT 112: Negative or not required by law. The above report was generated using voice recognition software. It may contain grammatical, syntax o r spelling errors. Electronically signed by: Eduin Wick M.D. 06/28/2024 8:19 AM
--- NOTE | 2024-06-28 08:56 | CT Scan Report ---
CT chest diagnostic wo con, CT abd pelvis wo con CT DOSE: 1061.86 mGy.cm CLINICAL HISTORY: 59 years-old Female with hypoxia. Acute hypoxia with chest and abdominal pain TECHNIQUE: Multiaxial CT images of the chest, abdomen and pelvis were performed without contrast. A dose lowering technique was utilized adhering to the principles of ALARA. COMPARISON: Chest radiograph 06/27/2024, CT abdomen and pelvis 06/25/2024 FINDINGS: CT CHEST: Gaseous distention of the esophagus with an enteric tube in place. No thyroid nodule. No pa thologically enlarged lymph nodes. Heart is normal in size with moderate coronary artery calcificatio ns. No thoracic aortic aneurysm. Trace left and small to moderate loculated right pleural effusions. Patchy groundglass opacities are noted throughout the left lung, suboptimally evaluated secondary to respiratory motion degradation. T here is prominent mucous plugging throughout the right lung bronchi with right lung volume loss and c onsolidation. Minimal aeration of the superior segment right lower lobe and apical segment right uppe r lobe. Remainder of the right lung is predominantly collapsed. Unremarkable soft tissues. Degenerati ve changes of the shoulders and spine. CT ABDOMEN/PELVIS: Limited study without contrast. Respiratory motion artifact also limits the study. No definite postoperative pneumoperitoneum identified. Into midline skin shantel with continuous gaetano gical drainage catheter. The unenhanced spleen, pancreas and adrenal glands are unremarkable. Hepatic steatosis. Malposition of the gallbladder. No hydronephrosis. Decompressed bladder with Camacho cathet er in place. Mild atherosclerosis of the aorta. Distal esophageal wall thickening. The tip of the enteric tube terminates in the proximal gastric bod y. Dilated fluid-filled loops of small bowel measure up to 3.9 cm, improved compared to the preoperat jayson study. Air and fluid filled loops of large bowel. Colonic diverticulosis without acute diverticul itis. Edema within the mesenteric root with trace ascites. A percutaneous jejunostomy catheter is not ed entering the left mid abdomen, distal tip terminating in the right paracentral abdomen on image 19 6. No drainable postoperative fluid collections. No acute fracture identified. Chronic appearance of the femoral acetabular joints. IMPRESSION: 1. Prominent multifocal mucus plugging throughout the right lung with consolidation and partial colla pse. 2. Trace left and epyfl-[id number]-oornomvp right pleural effusions. 3. Mild patchy groundglass opacities throughout the left lung are likely infectious or inflammatory. 4. There is improving small bowel distention compared to the 06/25/2024 exam suggestive of resolving obstruction/postoperative ileus. 5. Additional findings as above. ACT 112: Negative or not required by law. Electronically signed by: Eduin Wick M.D. 06/28/2024 8:54 AM
[2024-06-28] MEDS ORDERED: PROMETHAZINE 12.5 MG/50.5 ML BAG IV PRN (11:49)
--- NOTE | 2024-06-28 12:36 | Electrocardiogram Report ---
Test Reason : Blood Pressure : */* mmHG Vent. Rate : 130 BPM Atrial Rate : 130 BPM P-R Int : 114 ms QRS Dur : 64 ms QT Int : 296 ms P-R-T Axes : 42 17 53 degrees QTcB Int : 435 ms Sinus tachycardia Nonspecific ST abnormality Abnormal ECG When compared with ECG of 11-Jun-2024 14:12, Criteria for Septal infarct are no longer Present ST now depressed in Anterior leads Nonspecific T wave abnormality no longer evident in Anterior leads Nonspecific T wave abnormality now evident in Lateral leads Confirmed by Maurice Falk ([id number]) on 06/28/2024 12:35:37 PM Referred By: REFERRED SELF Confirmed By: Maurice Falk
[2024-06-28] MEDS: MoRPHine SULFATE 2 MG/ML CARP IV PRN (12:40)
[2024-06-28] MEDS: LORazepam 2 MG/1 ML VIAL IV PRN (12:45)
[2024-06-28] MEDS: GLYCOPYRROLATE 0.2 MG/ML VIAL IV PRN (17:28)
[2024-06-28] MEDS: MoRPHine SULFATE 2 MG/ML CARP IV STA (17:30)
[2024-06-28] MEDS: ATROPINE SULFATE 1% OP SOLN 5 ML BTL SL PRN (22:03)
[2024-06-29] MEDS ORDERED: IPRATROPIUM BROMIDE NEB SOLN 0.02% 0.5MG/2.5ML VIAL NEB PRN (08:17)
[2024-06-29] MEDS ORDERED: LEVALBUTEROL 1.25 MG/3 ML NEB NEB PRN (08:17)
--- NOTE | 2024-06-29 08:24 | Surgery Progress Note ---
Date of Service June 29, 2024 Assessment & Plan (1) Jejunostomy tube present: Plan: Pt s/p replacement of Jejunostomy tube 06/26 over wknd patient's respiratory status declined, currently requiring 15L CT chest show multifocal mucous plugging throughout and R lung collapse. likely from aspiration. pulmonary evaluated pt yest, please see their note extensive discussion with family and medicine/supporting services were had and ultimately decided on comfort measures no plans for J tube use at this time dr. holly seen/examined pt and spoke with family this am we will follow from the periphery at this point, please call if we can be of assistance as above. unfortunate turn of events over weekend. please call if there is anything we can do to assist. (2) Mucus plugging of bronchi: (3) Comfort measures only status: Admission and Anticipated Discharge Date Admission Date: June 11, 2024 Subjective Patient resting in bed, family at bedside providing comfort. pt unable to provide subjective history. Physical Exam Physical Exam: in bed, wearing oxymask, no acute distress Respiratory: on 15L non rebreather Gastrointestinal (Abdomen): Percussion/Palpation: abdomen soft midline incision w/jorge drain, c/d/i, no signs of infection Results & Data Vital Signs (Past 12 Hours) Vital Signs Temp O2 Del Method O2 Flow Rate 06/28/24 22:29 Non-rebreather 15 06/28/24 21:45 99.6 F PG Care Time/CCT Total # of Minutes Spent Total Time Spent with Patient: Total time spent is greater than 50% in coordination of care (as documented) at patient's floor/unit and/or counseling patient: Coding Level of Care Code 01220 Post Operative Follow-Up Diagnoses Jejunostomy tube present Z93.4 Mucus plugging of bronchi T17.500A Comfort measures only status Z51.5
[2024-06-29] MEDS ORDERED: STAT IV Infusion **Titration per Protocol STA (11:25)
[2024-06-29] MEDS: MoRPHine SULF/NSS 100 MG/100 ML BAG IV SCH (12:33)
[2024-06-29] MEDS: MoRPHine BOLUS from BAG IV PRN (16:10)
[2024-06-29] MEDS: LORazepam 2 MG/1 ML VIAL IV SCH (16:14)
[2024-06-29 20:12] VITALS: TEMP 98.7
--- NOTE | 2024-06-29 20:18 | Hospitalist Progress Note ---
Date of Service June 29, 2024 Assessment & Plan (1) Comfort measures only status: Plan: change prn IV morphine to continuous morphine infusion schedule IV ativan q4h cont other comfort care measures appreciate electronic court recorder support gave support to pt's mother & family anticipate pt's passing next 1-2 days (2) Palliative care patient: Plan: transitioned to comfort care pathway 06/28/24 (3) Acute respiratory failure with hypoxia: Plan: at time of admission -- * 2nd to rhinovirus infection with bronchitis * 2nd to aspiration pneumonia / superimposed bacterial pneumonia * 2nd to pulmonary edema had been resolving, and had finished a course of abx for the bacterial pneumonia earlier in the admission 06/27/24 to 06/28/24 --> worsening respiratory status with increased work of breathing, worsening hypoxia, escalating O2 requirements, etc. serial CXRs with worsening infiltrates on right leading to complete collapse of most of the right lung CT chest confirmed extensive mucous plugging in the right-sided bronchial tree, right-sided collapse, right-sided pneumonia and also left-sided pneumonia small-moderate pleural effusion on right noted on CT chest; can't exclude pulmonary edema the main culprit in her worsening status had been mucous plugging leading to collapse after much discussion with her family a decision was made by her mom/dad/siblings to NOT pursue aggressive measures (bronch, etc) transitioned to comfort care pathway on 06/28/24 (4) Mucus plugging of bronchi: Plan: extensive, right-sided bronchial tree see above (5) Aspiration into airway: Plan: with resulting mucous plugging, aspiration pneumonia, and worsening respiratory failure all abx stopped --> transitioned to comfort care measures (6) SBO (small bowel obstruction): Plan: POD #3 s/p Exploratory Laparotomy, Release of Small Bowel Obstruction, Closure of enterotomy, Replacement of Jejunostomy tube by Dr. Sandoval (7) Jejunostomy tube present: Plan: POD #5 s/p open J-tube placement by Dr Sandoval unfortunately had to go back to the OR on 06/26 for removal of original J-tube as this was causing a SBO new J-tube site created either way parenteral nutrition and enteral nutrition - all stopped (8) Rhinovirus: Plan: respiratory BioFire panel + for rhinovirus at time of admission with resulting bronchitis/acute hypoxic resp failure (9) Aspiration pneumonia: Plan: CT chest 06/16 with b/l basilar infiltrates especially the RML this was likely bacterial pneumonia in the setting of rhinovirus received full abx course for such now with recurrent aspiration pneumonia/mucous plugging/right-sided collapse as above (10) Dysphagia: Plan: per report from the pt's mother/sister & workers from [facility] she had had worsening dysphagia with poor oral intake for several weeks prior to admissi on s/p J-tube insertion 06/24/24 (11) Cerebral palsy: Plan: long-time resident of [facility] in [place] (12) Hypothyroidism (acquired): (13) Esophageal dilatation: Plan: seen on CT chest (14) Acute metabolic encephalopathy: Plan: 2nd to rhinovirus infection, superimposed bacterial pneumonia, toxic effects from depakote when her level was >100 (early in admission), hypoxia, etc. (15) GERD (gastroesophageal reflux disease): (16) Valproic acid toxicity: Plan: initial level was 149 on a daily depakote dose of 750mg BID early in the stay depakote dose reduced in response to that toxic level with improvement to level of 81 cont depakote IV for now (17) Urinary tract infection: Plan: 2nd to pansensitive e.coli completed full course of IV abx therapy earlier this stay cont spaulding Admission and Anticipated Discharge Date Admission Date: June 11, 2024 Subjective patient had rough night with ongoing respiratory distress requiring frequent morphine administration numerous family & [employer] employees present at bedside during AM rounds I recommended we transition to morphine infusion family agreeable after morphine drip was started I rechecked Beulah - still tachypneic, grunting, uncomfortable asked to have morphine drip titrated I also scheduled IV ativan q4h I rechecked Beulah about 1900 this evening - finally resting more comfortably on morphine drip at 4mg/hr and scheduled ativan gave support to pt's mother & siblings throughout the day today Review of Systems Review of Systems: Unobtainable due to cognitive status and Unobtainable due to reduced consciousness Physical Exam Physical Exam: gen - in distress; still with grunting, occasional moaning; tachypneic/retracting neck - no JVD heart - tachycardic, s1 s2, no murmur lungs - no air movement right hemithorax; left lung with rales & wheezes; tachypnea, grunting, retractions abd - no obvious tenderness; less distended; BS decreased; dressings intact ext - 1+ edema b/l, foot deformities b/l, pulses b/l feet 2+ psych - distressed Results & Data Results & Data Vital Signs (Past 12 Hours) Vital Signs Temp O2 Del Method O2 Flow Rate 06/29/24 20:11 37.1 C 06/29/24 10:26 Non-rebreather 15 PG Care Time/CCT Total # of Minutes Spent Total Time Spent with Patient: Total time spent is greater than 50% in coordination of care (as documented) at patient's floor/unit and/or counseling patient: Coding Level of Care Code 28340 SUB INP/OBS CARE 2/35MIN Diagnoses Comfort measures only status Z51.5 Palliative care patient Z51.5 Acute respiratory failure with hypoxia J96.01 Mucus plugging of bronchi T17.500A Aspiration into airway T17.908A SBO (small bowel obstruction) K56.609 Jejunostomy tube present Z93.4 Rhinovirus B34.8 Aspiration pneumonia J69.0 Aspiration pneumonia type: unspecified Laterality: right Lung location: unspecified part of lung Dysphagia R13.10 Cerebral palsy G80.9 Cerebral palsy type: unspecified type Hypothyroidism (acquired) E03.9 Esophageal dilatation K22.89 Acute metabolic encephalopathy G93.41 GERD (gastroesophageal reflux disease) K21.9 Valproic acid toxicity T42.6X1A Urinary tract infection N30.00 Hematuria presence: without hematuria Urinary tract infection type: acute cystitis (9) Aspiration pneumonia Aspiration pneumonia type: unspecified Laterality: right Lung location: unspecified part of lung Qualified Code(s): J69.0 - Pneumonitis due to inhalation of food and vomit (11) Cerebral palsy Cerebral palsy type: unspecified type Qualified Code(s): G80.9 - Cerebral palsy, unspecified (17) Urinary tract infection Hematuria presence: without hematuria Urinary tract infection type: acute cystitis Qualified Code(s): N30.00 - Acute cystitis without hematuria
--- NOTE | 2024-06-30 15:09 | Hospitalist Progress Note ---
Date of Service June 30, 2024 Assessment & Plan (1) Comfort measures only status: Plan: continue morphine infusion at 4 mg/h continue scheduled IV ativan q4h cont other comfort care measures (2) Palliative care patient: Plan: transitioned to comfort care pathway 06/28/24 (3) Acute respiratory failure with hypoxia: Plan: at time of admission -- * 2nd to rhinovirus infection with bronchitis * 2nd to aspiration pneumonia / superimposed bacterial pneumonia * 2nd to pulmonary edema had been resolving, and had finished a course of abx for the bacterial pneumonia earlier in the admission 06/27/24 to 06/28/24 --> worsening respiratory status with increased work of breathing, worsening hypoxia, escalating O2 requirements, etc. serial CXRs with worsening infiltrates on right leading to complete collapse of most of the right lung CT chest confirmed extensive mucous plugging in the right-sided bronchial tree, right-sided collapse, right-sided pneumonia and also left-sided pneumonia small-moderate pleural effusion on right noted on CT chest; can't exclude pulmonary edema the main culprit in her worsening status had been mucous plugging leading to collapse after much discussion with her family a decision was made by her mom/dad/siblings to NOT pursue aggressive measures (bronch, etc) transitioned to comfort care pathway on 06/28/24 (4) Mucus plugging of bronchi: Plan: extensive, right-sided bronchial tree see above (5) Aspiration into airway: Plan: with resulting mucous plugging, aspiration pneumonia, and worsening respiratory failure all abx stopped --> transitioned to comfort care measures (6) SBO (small bowel obstruction): Plan: 06/26 Exploratory Laparotomy, Release of Small Bowel Obstruction, Closure of enterotomy, Replacement of Jejunostomy tube by Dr. Sandoval (7) Jejunostomy tube present: Plan: 06/24 open J-tube placement by Dr Sandoval unfortunately had to go back to the OR on 06/26 for removal of original J-tube as this was causing a SBO new J-tube site created (8) Rhinovirus: Plan: respiratory BioFire panel + for rhinovirus at time of admission with resulting bronchitis/acute hypoxic resp failure (9) Aspiration pneumonia: Plan: CT chest 06/16 with b/l basilar infiltrates especially the RML this was likely bacterial pneumonia in the setting of rhinovirus received full abx course for such developed recurrent aspiration pneumonia/mucous plugging/right-sided collapse as above (10) Dysphagia: Plan: per report from the pt's mother/sister & workers from [employer] she had had worsening dysphagia with poor oral intake for several weeks prior to ad [place] s/p J-tube insertion 06/24/24, however, continued to have aspiration events and pneumonias (11) Cerebral palsy: Plan: long-time resident of [facility] in [place] (12) Hypothyroidism (acquired): (13) Esophageal dilatation: Plan: seen on CT chest (14) Acute metabolic encephalopathy: Plan: 2nd to rhinovirus infection, superimposed bacterial pneumonia, toxic effects from depakote when her level was >100 (early in admission), hypoxia, etc. (15) GERD (gastroesophageal reflux disease): (16) Valproic acid toxicity: Plan: initial level was 149 on a daily depakote dose of 750mg BID early in the stay depakote dose reduced in response to that toxic level with improvement to level of 81 cont depakote IV for now (17) Urinary tract infection: Plan: 2nd to pansensitive e.coli completed full course of IV abx therapy earlier this stay cont spaulding Admission and Anticipated Discharge Date Admission Date: June 11, 2024 Subjective Beulah is not alert. RR around 6, resp deep and infrequent. Family including parents and sister are gathered at bedside Physical Exam Physical Exam: PHYSICAL EXAMINATION Last 24h vital signs reviewed, see documentation in flowsheet General: comfortable appearing, no distress HEENT: eyes are closed Lungs: respirations deep and infrequent Heart: Regular rate and rhythm, no murmurs. No JVD Abdomen: Soft, nondistended. Bowel sounds present. Extremities: Warm, dry, well-perfused. 1-2+ extremity edema. Neuro: not alert Psych: unable to assess PG Care Time/CCT Total # of Minutes Spent Total Time Spent with Patient: Total time spent is greater than 50% in coordination of care (as documented) at patient's floor/unit and/or counseling patient: Coding Level of Care Code 01020 SUB INP/OBS CARE 1/25MIN Diagnoses Comfort measures only status Z51.5 Palliative care patient Z51.5 Acute respiratory failure with hypoxia J96.01 Mucus plugging of bronchi T17.500A Aspiration into airway T17.908A SBO (small bowel obstruction) K56.609 Jejunostomy tube present Z93.4 Rhinovirus B34.8 Aspiration pneumonia J69.0 Aspiration pneumonia type: unspecified Laterality: right Lung location: unspecified part of lung Dysphagia R13.10 Cerebral palsy G80.9 Cerebral palsy type: unspecified type Hypothyroidism (acquired) E03.9 Esophageal dilatation K22.89 Acute metabolic encephalopathy G93.41 GERD (gastroesophageal reflux disease) K21.9 Valproic acid toxicity T42.6X1A Urinary tract infection N30.00 Hematuria presence: without hematuria Urinary tract infection type: acute cystitis (9) Aspiration pneumonia Aspiration pneumonia type: unspecified Laterality: right Lung location: unspecified part of lung Qualified Code(s): J69.0 - Pneumonitis due to inh alation of food and vomit (11) Cerebral palsy Cerebral palsy type: unspecified type Qualified Code(s): G80.9 - Cerebral palsy, unspecified (17) Urinary tract infection Hematuria presence: without hematuria Urinary tract infection type: acute cystitis Qualified Code(s): N30.00 - Acute cystitis without hematuria
--- NOTE | 2024-07-01 14:43 | Hospitalist Progress Note ---
Date of Service July 01, 2024 Assessment & Plan (1) Comfort measures only status: Plan: continue morphine infusion at 4 mg/h continue scheduled IV ativan q4h cont other comfort care measures remains comfortable no change to plan 07/01. Updated her family at the bedside (2) Palliative care patient: Plan: transitioned to comfort care pathway 06/28/24 (3) Acute respiratory failure with hypoxia: Plan: at time of admission -- * 2nd to rhinovirus infection with bronchitis * 2nd to aspiration pneumonia / superimposed bacterial pneumonia * 2nd to pulmonary edema had been resolving, and had finished a course of abx for the bacterial pneumonia earlier in the admission 06/27/24 to 06/28/24 --> worsening respiratory status with increased work of breathing, worsening hypoxia, escalating O2 requirements, etc. serial CXRs with worsening infiltrates on right leading to complete collapse of most of the right lung CT chest confirmed extensive mucous plugging in the right-sided bronchial tree, right-sided collapse, right-sided pneumonia and also left-sided pneumonia small-moderate pleural effusion on right noted on CT chest; can't exclude pulmonary edema the main culprit in her worsening status had been mucous plugging leading to collapse after much discussion with her family a decision was made by her mom/dad/siblings to NOT pursue aggressive measures (bronch, etc) transitioned to comfort care pathway on 06/28/24 (4) Mucus plugging of bronchi: Plan: extensive, right-sided bronchial tree see above (5) Aspiration into airway: Plan: with resulting mucous plugging, aspiration pneumonia, and worsening respiratory failure all abx stopped --> transitioned to comfort care measures (6) SBO (small bowel obstruction): Plan: 06/26 Exploratory Laparotomy, Release of Small Bowel Obstruction, Closure of enterotomy, Replacement of Jejunostomy tube by Dr. Sandoval (7) Jejunostomy tube present: Plan: 06/24 open J-tube placement by Dr Sandoval unfortunately had to go back to the OR on 06/26 for removal of original J-tube as this was causing a SBO new J-tube site created (8) Rhinovirus: Plan: respiratory BioFire panel + for rhinovirus at time of admission with resulting bronchitis/acute hypoxic resp failure (9) Aspiration pneumonia: Plan: CT chest 06/16 with b/l basilar infiltrates especially the RML this was likely bacterial pneumonia in the setting of rhinovirus received full abx course for such developed recurrent aspiration pneumonia/mucous plugging/right-sided collapse as above (10) Dysphagia: Plan: per report from the pt's mother/sister & workers from [employer] she had had worsening dysphagia with poor oral intake for several weeks prior to admission s/p J-tube insertion 06/24/24, however, continued to have aspiration events and pneumonias (11) Cerebral palsy: Plan: long-time resident of [facility] in [place] (12) Hypothyroidism (acquired): (13) Esophageal dilatation: Plan: seen on CT chest (14) Acute metabolic encephalopathy: Plan: 2nd to rhinovirus infection, superimposed bacterial pneumonia, toxic effects from depakote when her level was >100 (early in admission), hypoxia, etc. (15) GERD (gastroesophageal reflux disease): (16) Valproic acid toxicity: Plan: initial level was 149 on a daily depakote dose of 750mg BID early in the stay depakote dose reduced in response to that toxic level with improvement to level of 81 cont depakote IV for now (17) Urinary tract infection: Plan: 2nd to pansensitive e.coli completed full course of IV abx therapy earlier this stay cont spaulding Admission and Anticipated Discharge Date Admission Date: June 11, 2024 Subjective no events, no changes excepting that respirations are even less frequent her brother has been visiting and playing music for her Beulah's mother and sister at bedside this morning Physical Exam Physical Exam: PHYSICAL EXAMINATION Last 24h vital signs reviewed, see documentation in flowsheet General: comfortable appearing, no distress HEENT: eyes are closed Lungs: respirations shallow and infrequent with decreased respiratory rate Heart: Regular rate and rhythm, no murmurs. No JVD Abdomen: Soft, nondistended. Bowel sounds present. Extremities: Warm, dry, well-perfused. 1-2+ extremity edema. Neuro: not alert Psych: unable to assess Results & Data Results & Data Vital Signs (Past 12 Hours) Vital Signs O2 Del Method O2 Flow Rate 07/01/24 14:21 Nasal Cannula 2 07/01/24 13:50 Nasal Cannula 4 07/01/24 12:15 Nasal Cannula 6 07/01/24 11:45 Oxymask 8 07/01/24 11:10 Oxymask 10 07/01/24 10:35 Non-rebreather 12 07/01/24 09:10 Non-rebreather 15 PG Care Time/CCT Total # of Minutes Spent Total Time Spent with Patient: Total time spent is greater than 50% in coordination of care (as documented) at patient's floor/unit and/or counseling patient: Coding Level of Care Code 85960 SUB INP/OBS CARE 25MIN Diagnoses Comfort measures only status Z51.5 Palliative care patient Z51.5 Acute respiratory failure with hypoxia J96.01 Mucus plugging of bronchi T17.500A Aspiration into airway T17.908A SBO (small bowel obstruction) K56.609 Jejunostomy tube present Z93.4 Rhinovirus B34.8 Aspiration pneumonia J69.0 Aspiration pneumonia type: unspecified Laterality: right Lung location: unspecified part of lung Dysphagia R13.10 Cerebral palsy G80.9 Cerebral palsy type: unspecified type Hypothyroidism (acquired) E03.9 Esophageal dilatation K22.89 Acute metabolic encephalopathy G93.41 GERD (gastroesophageal reflux disease) K21.9 Valproic acid toxicity T42.6X1A Urinary tract infection N30.00 Hematuria presence: without hematuria Urinary tract infection type: acute cystitis (9) Aspiration pneumonia Aspiration pneumonia type: unspecified Laterality: right Lung location: unspecified part of lung Qualified Code(s): J69.0 - Pneumonitis due to inhalation of food and vomit (11) Cerebral palsy Cerebral palsy type: unspecified type Qualified Code(s): G80.9 - Cerebral palsy, unspecified (17) Urinary tract infection Hematuria presence: without hematuria Urinary tract infection type: acute cystitis Qualified Code(s): N30.00 - Acute cystitis without hematuria
--- NOTE | 2024-07-01 18:08 | Death Pronouncement Note ---
Date of Service July 01, 2024 Pronouncement Note Admission Date Admission Date: June 11, 2024 Date and Time of Date of : 07/01/24 Time of : 17:33 PCOD Preliminary cause of : Aspiration pneumonia Contributing Factors (1) Comfort measures only status: (2) Palliative care patient: (3) Acute respiratory failure with hypoxia: (4) Mucus plugging of bronchi: (5) Aspiration into airway: (6) SBO (small bowel obstruction): (7) Jejunostomy tube present: (8) Rhinovirus: (9) Aspiration pneumonia: (10) Dysphagia: (11) Cerebral palsy: (12) Hypothyroidism (acquired): (13) Esophageal dilatation: (14) Acute metabolic encephalopathy: (15) GERD (gastroesophageal reflux disease): (16) Valproic acid toxicity: (17) Urinary tract infection: Summary Additional details: On exam Beulah is nonresponsive, there is a prolonged and permanent absence of respiratory efforts and heart sounds. Additional Data Family: at bedside Attending physician: Claudia Santos MD
--- NOTE | 2024-07-01 18:10 | Discharge Summary ---
Discharge Summary Date of Service July 01, 2024 Principal Dx & Hospital Course #1 = Principal Diagnosis (1) Acute respiratory failure with hypoxia: 59 y/o with cerebral palsy admitted with at least three weeks of dysphagia and inability to swallow well enough for nutrition and hydration. She had altered mental status and acute hypoxic respiratory failure related to aspiration pneumonia, rhinovirus/enterovirus infection. This initially improved with antibiotics. She underwent surgical j-tube replacement 06/24. On 06/25 she developed acute small bowel obstruction. On 06/26 she went ex-lap with lysis of adhesions and j-tube revision. She had worsening of respiratory failure 06/27- 06/28 with right lung collapse caused by extensive pneumonia and mucus plugging. Decision was made to transition to comfort measures only rather than escalating to more aggressive measures such as intubation and bronchoscopy. at time of admission -- * 2nd to rhinovirus infection with bronchitis * 2nd to aspiration pneumonia / superimposed bacterial pneumonia * 2nd to pulmonary edema had been resolving, and had finished a course of abx for the bacterial pneumonia earlier in the admission 06/27/24 to 06/28/24 --> worsening respiratory status with increased work of breathing, worsening hypoxia, escalating O2 requirements, etc. serial CXRs with worsening infiltrates on right leading to complete collapse of most of the right lung CT chest confirmed extensive mucous plugging in the right-sided bronchial tree, right-sided collapse, right-sided pneumonia and also left-sided pneumonia after much discussion with her family a decision was made by her mom/dad/siblings to NOT pursue aggressive measures (bronch, etc) transitioned to comfort care pathway on 06/28/24 remained comfortable with use of morphine and lorazepam for symptom control. Beulah peacefully evening of 07/01/24. (2) Mucus plugging of bronchi: extensive, right-sided bronchial tree see above (3) Aspiration into airway: with resulting mucous plugging, aspiration pneumonia, and worsening respiratory failure did not improve with antibiotics (4) Jejunostomy tube present: 06/24 open J-tube placement by Dr Sandoval unfortunately had to go back to the OR on 06/26 for removal of original J-tube as this was causing a SBO new J-tube site created (5) SBO (small bowel obstruction): 06/26 Exploratory Laparotomy, Release of Small Bowel Obstruction, Closure of enterotomy, Replacement of Jejunostomy tube by Dr. Sandoval (6) Rhinovirus: respiratory [employer] panel + for rhinovirus at time of admission with resulting bronchitis/acute hypoxic resp failure (7) Aspiration pneumonia: CT chest 06/16 with b/l basilar infiltrates especially the RML this was likely bacterial pneumonia in the setting of rhinovirus received full abx course for such developed recurrent aspiration pneumonia/mucous plugging/right-sided collapse as above (8) Dysphagia: per report from the pt's mother/sister & workers from [facility] she had had worsening dysphagia with poor oral intake for several weeks prior to admission s/p J-tube insertion 06/24/24, however, continued to have aspiration events and pneumonias (9) Cerebral palsy: long-time resident of [facility] in [place] (10) Hypothyroidism (acquired): (11) Esophageal dilatation: seen on CT chest (12) Acute metabolic encephalopathy: 2nd to rhinovirus infection, superimposed bacterial pneumonia, toxic effects from depakote when her level was >100 (early in admission), hypoxia, etc. (13) GERD (gastroesophageal reflux disease): (14) Valproic acid toxicity: initial level was 149 on a daily depakote dose of 750mg BID early in the stay depakote dose reduced in response to that toxic level with improvement to level of 81 (15) Urinary tract infection: 2nd to pansensitive e.coli completed full course of IV abx therapy earlier this stay cont spaulding Admission HPI Per Admitting Provider Beulah is a 59-year-old female with PMH of cerebral palsy, aspiration pneumonia, dysphagia, GERD, recurrent UTIs, hypothyroidism, and gastroenteritis. She presented via EMS from [place] for difficulty swallowing. Patient has cerebral palsy and is unable to provide a history. Patient's caregiver (Nataliya) is at the bedside, and provides history. Patient has been seeing speech therapy x 3 weeks. She had a barium swallow performed and was told that the grewal of her esophagus were "weakening" and that her saliva is "fighting with her food". Speech therapy also told her that she often "stops breathing" when she eats. Patient is normally on a nectar thick diet at baseline. However, there is been acute worsening over the past 2 days, and caretakers have reported that she has stopped eating and drinking entirely. For instance, she had a "smooshed banana" yesterday morning, and some pudding with her medications today, but otherwise has not had anything to eat or drink. Caretakers also note that she has had a "watery cough" that sounds like she is "drowning". No sick contacts. No supplemental oxygen at baseline. No CPAP at night. Patient is tachycardic at 105 bpm at time of admission; SpO2 95% on RA; vitals otherwise stable. ED course: NSS 500 mL IV Unable to obtain ROS from patient at this time. However, evaluation manager denies fever. Director Process Improvement notes that she sometimes points to her chest which may represent chest pain. Called patient's mother/POA (Karie) and provided update regarding admission status. Reconfirmed that the patient is a full code. Discharge Plan Discharge Items Reason For Visit: DYSPHAGIA Activity: Per Instructions section Lifting: No more than 10 pounds Bathing Comment: may shower; no soaking in tubs/pools x 2 weeks Follow-up/Referrals: Cornel Sandoval DO [Surgeon] - (call to schedule follow up in clinic within 2 weeks) Leighann Palumbo DO [Primary Care Provider] - Addtl Attending Provider Instructions: you have small white bandages over your incisions called steri strips. you may shower with these on. they will tend to dry up and fall off on their own within 7-10 days care for jejunostomy tube as directed prior to discharge from the hospital Medications and DC Order Prescriptions: No Action quetiapine 25 mg tablet 12.5 mg PO .DAILY@1600 quetiapine 200 mg tablet 200 mg PO HS fexofenadine [Jayleen Allergy] 180 mg Tablet 180 mg PO QAM omeprazole 40 mg capsule,delayed release(DR/EC) 40 mg PO BID baclofen 20 mg tablet 20 mg PO TID Rx Instructions: at 0800,1600,1999 baclofen 10 mg tablet 5 mg PO TID Rx Instructions: 0800,1600,1999 metronidazole 0.75 % cream 1 applic TOPICAL BID Rx Instructions: Apply to face. paroxetine HCl 40 mg tablet 40 mg PO QAM Rx Instructions: TOTAL DOSE 60 MG--TAKES WITH 20 MG TAB. ketoconazole 2 % cream 1 applic TOPICAL BID Rx Instructions: Apply to red rash on temples, eyebrows, back of ears and under breasts as needed. fluticasone propionate 50 mcg/actuation spray,suspension 2 spray INTRANASAL QAM paroxetine HCl 20 mg tablet 20 mg PO QAM Rx Instructions: TOTAL DOSE 60 MG--TAKES WITH 40 MG TAB. chlorhexidine gluconate 0.12 % mouthwash 1 applic PO 2XWK Rx Instructions: 2x week. swab on teeth and gums after brushing. / estradiol 0.01 % (0.1 mg/gram) cream 1 applic VAGINAL 2XWK Rx Instructions: apply 1/2 " cream on 2x2,gently swipe over urethra 2x weekly saturday and bedtimes mirtazapine 7.5 mg tablet 7.5 mg PO HS hydroxyzine HCl 25 mg Tablet See Rx Instructions .ROUTE .COMPLEX Rx Instructions: TAKES 12.5 MG BID AT 0800 & 1600, THEN TAKES 25 MG AT HS. polyethylene glycol 3350 [Miralax] 17 gram/dose powder 17 g PO QAM levothyroxine 75 mcg tablet 50 mcg PO DAILY Rx Instructions: takes 50 mcg Debrox 6.5 % Drops 5 drp OTIC (EAR) WK Rx Instructions: 5-10 drops in each ear per week (saturday) divalproex 125 mg tablet,delayed release (DR/EC) 750 mg PO BID Rx Instructions: 6 tabs at 8 am & 6 tabs at 8pm Thick-It Powder 0 ea PO DAILY Rx Instructions: 5 tsp in 8 oz of fluids QID w/ meals. PT may have 2 additional doses if requested. Admission Data Admit Date/Time: 06/11/24 18:14 Attending Provider: Claudia Santos Admit Provider: Rick Nielsen Primary Care Provider: Leighann Palumbo Other Providers: [facility],Home Healthcare; Sam Friend; Rick Nielsen; Ricky Bronson Jr; Patricia Mckeon; Cornel Sandoval Hospital Stay Data Consultations 06/11/24 16:46 ED Decision to Admit Stat 06/11/24 17:31 Consult Gastroenterology Routine 06/12/24 12:52 Consult Palliative Care Routine 06/17/24 15:46 Consult Pulmonology Routine 06/22/24 16:45 Consult General Surgery Routine 06/28/24 06:45 Consult Pulmonology Routine Procedures Performed Operation Date: 06/26/24 12:40 Actual Procedures p Exploratory Laparotomy, Release of Small Bowel Obstruction, Closure of Anarotomy, Replacement of Jejunostomy tube (Not Applicable) - Cornel Sandoval, Diagnostic Imagining Performed 06/16/24 18:42 CT chest without contrast [CT chest diagnostic wo con] Stat 06/19/24 19:38 CT head/brain wo con Stat 06/25/24 23:12 CT abd pelvis IV con only Stat 06/28/24 06:18 CT Abd and Pelvis [CT abd pelvis wo con] Stat CT chest diagnostic wo con Stat Discharge Instructions Given to Patient (Per Discharging Provider) you have small white bandages over your incisions called steri strips. you may shower with these on. they will tend to dry up and fall off on their own within 7-10 days care for jejunostomy tube as directed prior to discharge from the hospital Total Time Total Time Spent Total Time Spent (In Minutes): I personally spent: 40 minutes today on clinical care activities including: reviewing chart notes and vital signs examining the patient counseling the patient's family documentation Coding Level of Care Code 22018 INP/OBS DISCH >30 MIN Diagnoses Acute respiratory failure with hypoxia J96.01 Mucus plugging of bronchi T17.500A Aspiration into airway T17.908A Jejunostomy tube present Z93.4 SBO (small bowel obstruction) K56.609 Rhinovirus B34.8 Aspiration pneumonia J69.0 Aspiration pneumonia type: unspecified Laterality: right Lung location: unspecified part of lung Dysphagia R13.10 Cerebral palsy G80.9 Cerebral palsy type: unspecified type Hypothyroidism (acquired) E03.9 Esophageal dilatation K22.89 Acute metabolic encephalopathy G93.41 GERD (gastroesophageal reflux disease) K21.9 Valproic acid toxicity T42.6X1A Urinary tract infection N30.00 Hematuria presence: without hematuria Urinary tract infection type: acute cystitis
== END 2024-07-01 18:43 | disposition expired | DRG 329 ==
LOC: ED 13:19 → SUATTDRO 18:14 → 2W 18:14 → 4W 06-17 19:45 → 3W 06-28 19:08